=== PATIENT | female | born 1935 | race Caucasian/White ===

== ENCOUNTER 2017-03-26 12:56 | Emergency (ER) | payer MEDICARE ==
[2017-03-26] MEDS ORDERED: OXYCODONE-ACETAMINOPHEN 5-325 MG TABLET PO ONE (13:13)
--- NOTE | 2017-03-26 13:18 | ER Document Report ---
ED Fall - General Chief Complaint: Fall Stated Complaint: FALL Time Seen by Provider: 03/26/17 12:59 Mode of Arrival: Stretcher Information source: Patient TRAVEL OUTSIDE OF THE [place] IN LAST 30 DAYS: No - HPI Patient complains to provider of: Fall, left lower leg injury Occurred: Just prior to arrival Where: Home Context: Tripped Associated symptoms: None Location of injury/pain: Lower extremity Quality of pain: Achy Severity: Moderate Pain Level: 4 Notes: Patient is an 81-year-old female brought to the emergency room by EMS after trip and fall, patient reports that she had a "nerve ablation", performed by her orthopedic surgeon at this facility earlier this morning, she went home and was trying to go upstairs in her home, states she had difficulty lifting the left leg causing her to fall and hit the leg on the stair, there is ecchymosis and swelling over the anterior portion of the left lower leg, she denies pain or injury elsewhere, no head injury or loss of consciousness - Related data Allergies/Adverse Reactions: aspirin [Aspirin] Allergy (Verified 10/18/15 14:53) erythromycin base [Erythromycin Base] Allergy (Verified 10/18/15 14:53) morphine [Morphine] Allergy (Verified 10/18/15 14:53) Sulfa (Sulfonamide Antibiotics) Allergy (Verified 10/18/15 14:53) Past Medical History - General Information source: Patient - Social History Smoking Status: Unknown if Ever Smoked Family History: Reviewed & Not Pertinent - Past Medical History Cardiac Medical History: Reports: Hx Atrial Fibrillation, Hx Heart Attack - non- stemi, Hx Hypercholesterolemia, Hx Hypertension Pulmonary Medical History: Reports: Hx COPD Endocrine Medical History: Reports: Hx Diabetes Mellitus Type 2, Hx Hypothyroidism Musculoskeltal Medical History: Reports Hx Arthritis Past Surgical History: Reports: Hx Cholecystectomy, Hx Coronary Stent, Hx Hysterectomy, Hx Neurologic Surgery - Neck 2010 - Immunizations Hx Diphtheria, Pertussis, Tetanus Vaccination: Yes Hx Pneumococcal Vaccination: 07/09/10 Review of Systems - Review of Systems Constitutional: No symptoms reported EENT: No symptoms reported Cardiovascular: No symptoms reported Respiratory: No symptoms reported Gastrointestinal: No symptoms reported Genitourinary: No symptoms reported Female Genitourinary: No symptoms reported Musculoskeletal: See HPI Skin: See HPI Hematologic/Lymphatic: No symptoms reported Neurological/Psychological: No symptoms reported -: Yes All other systems reviewed and negative Physical Exam - Vital signs Vitals: Temp Pulse Resp BP Pulse Ox 97.9 F 87 20 143/61 H 95 03/26/17 13:04 03/26/17 13:04 03/26/17 13:04 03/26/17 13:04 03/26/17 13:04 - Notes Notes: - General General appearance: Appears well, Alert In distress: None - HEENT Head: Normocephalic, Atraumatic Eyes: Normal Conjunctiva: Normal Extraocular movements intact: Yes Eyelashes: Normal Pupils: PERRL - Respiratory Respiratory status: No respiratory distress - Cardiovascular Rhythm: Regular - Abdominal Inspection: Normal - Back Back: Normal - Extremities General upper extremity: Normal inspection General lower extremity: Left knee with bandages in place, no active bleeding, no erythema or swelling, to the anterior portion of the left lower leg is mild erythema with swelling and large ecchymosis, 2+ DP pulses, distal motor is intact - Neurological Neuro grossly intact: Yes Orientation: AAOx4 Kent Coma Scale Eye Opening: Spontaneous Kent Coma Scale Verbal: Oriented Kent Coma Scale Motor: Obeys Commands Valentino Coma Scale Total: 15 - Psychological Associated symptoms: Normal affect, Normal mood - Skin Skin Temperature: Warm Skin Moisture: Dry Skin Color: Normal Course - Re-evaluation Re-evalutation: 03/26/17 13:47 Patient's orthopedic surgeon, Dr. Martinez came to the emergency room to check on her, he reports that he did take a peek at her x-rays as well, her symptoms are consistent with a contusion, she is already spoken to her about follow-up in his office next week, patient will be discharged with an Kwame wrap, advised ice and elevate, return if symptoms worsen, patient acknowledges understanding and agreement with this plan - Vital Signs Vital signs: Temp Pulse Resp BP Pulse Ox 97.9 F 87 20 143/61 H 95 03/26/17 13:04 03/26/17 13:04 03/26/17 13:04 03/26/17 13:04 03/26/17 13:04 - Diagnostic Test Radiology reviewed: Image reviewed, Reports reviewed Procedures - Immobilization Left Time completed: 13:47 Pre-Proc Neuro Vasc Exam: Normal Immobilizer type: Kwame wrap Performed by: PCT Post-Proc Neuro Vasc Exam: Normal Alignment checked and good: Yes Discharge - Discharge Clinical Impression: Contusion of left lower leg Qualifiers: Encounter type: initial encounter Qualified Code(s): S80.12XA - Contusion of left lower leg, initial encounter Condition: Stable Disposition: HOME, SELF-CARE Instructions: Contusion ([facility]), Ice & Elevation ([facility]) Additional Instructions: Follow-up with your orthopedic surgeon next week, report to the emergency room immediately if symptoms worsen or any additional concerns. Ice and elevate the affected extremity, decrease weightbearing or ambulation.
--- NOTE | 2017-03-26 14:14 | RADIOLOGY REPORT (SQ) ---
EXAM DESCRIPTION: TIBIA FIBULA LEFT COMPLETED DATE/TIME: 03/26/2017 1:47 pm REASON FOR STUDY: fall COMPARISON: None. NUMBER OF VIEWS: Two views. TECHNIQUE: Two radiographic images acquired of the left tibia and fibula to include the knee and ank le in at least one projection. LIMITATIONS: None. FINDINGS: MINERALIZATION: Normal. BONES: No acute fracture or dislocation. No worrisome bone lesions. SOFT TISSUES: No obvious swelling or foreign body. OTHER: Degenerative changes are identified at the level of the knee articulation with loss of the med ial compartment IMPRESSION: NO RADIOGRAPHIC EVIDENCE OF ACUTE INJURY. TECHNICAL DOCUMENTATION: JOB ID: [id number] [employer]- All Rights Reserved
[2017-03-26 14:41] VITALS: BP 141/66
== END 2017-03-26 15:30 | disposition home or self-care (01) ==
LOC: ER 12:56
DX: S80.12XA Contusion of left lower leg, initial encounter (principal); W01.0XXA Fall on same level from slipping, tripping and stumbling without subsequent striking against object, initial encounter; Y92.009 Unspecified place in unspecified non-institutional (private) residence as the place of occurrence of the external cause; I48.91 Unspecified atrial fibrillation; E78.00 Pure hypercholesterolemia, unspecified; I10 Essential (primary) hypertension; J44.9 Chronic obstructive pulmonary disease, unspecified; E03.9 Hypothyroidism, unspecified; Z88.6 Allergy status to analgesic agent; Z88.3 Allergy status to other anti-infective agents; Z88.2 Allergy status to sulfonamides; I25.2 Old myocardial infarction; Z90.49 Acquired absence of other specified parts of digestive tract; Z90.710 Acquired absence of both cervix and uterus
CPT/HCPCS: 99284; 73590; A9270

== ENCOUNTER → 2017-03-26 | Day surgery (SDC) | payer MEDICARE ==
[~2017-03-26] MED LIST: BUPIVACAINE HCL 0.5 % INJ/PF 30 ML SDV ONE
--- NOTE | 2017-03-26 10:43 | Operative Report ---
KNEE RADIOFREQUENCY left knee under CT guidance Preoperative diagnosis: Left Osteoarthritis Knee Postoperative diagnosis: Left Osteoarthritis Knee PROCEDURE: 1. Superolateral genicular branch from the vastus lateralis 2. Superomedial genicular branch from the vastus medialis 3. Inferomedial genicular branch from the saphenous nerve 4. Medial retinacular branch from the vastus intermedius DATE OF PROCEDURE: 12 March 2017 ANESTHESIA: Local anesthesia only COMPLICATIONS: No complications noted PROCEDURE IN DETAIL: Hx/PE/meds/allergies/applicable labs reviewed. No changes and no contraindications were found. Full description of the procedure was provided including benefits as well as possible complications including transient increased pain, stomach irritation, mood alteration, transient weakness or parasthesias as well as more serious nerve injury, bleeding, infection or allergic reaction. Informed consent was obtained and documented. The patient was brought to the procedure room and placed on the exam table in a comfortable supine position. The place for needle placement was obtained by manual palpation with radiographic confirmation. The sterile field was prepared by chloroprep and sterile drapes. Local anesthesia superficial and deep was provided by local infiltration of 1% lidocaine 2 cc in the 4 different sites. A 17g 50mm and a 75 mm radiofrequency introducer needle with a 4 mm active tip was placed overlying the left knee joint and using fluoroscopic guidance the needle was advanced to a bony endpoint on the superiolateral portion of the femoral condyle of the left knee. A second needle was advanced to a bony endpoint on the superiomedial portion of the femoral condyle. A third needle was then placed over the inferiomedial portion of the tibial condyle until a bony endpoint was met. Finally a fourth needle placed midline of the femur approximately 2cm superior to the upper border of the patella. Attempted aspiration yielded no blood. Apical view on CT scan views showed all the needles at 50% depth of the femur and tibia. Motor stimulation was tested at 2.0 volts with no leg movement. Images were saved in apical views. A mixture consisting of 0.25% Marcaine was slowly injected. Then a radiofrequency ablation of each of the geniculate nerves were done at 80 degrees Celsius for 2 minutes and 30 seconds each. The needles were withdrawn. The patient tolerated the procedure well. After observation the patient was discharged with instructions and follow up. They were also provided contact information to call regarding any concerning symptoms or questions. IMPRESSION: 1. Successful geniculate knee radiofrequency ablation was performed. 2. The patient was given prescription of home medicines to be resumed. 3. RTC in 1 week.
== END ==
LOC: RAD 09:43
PROVIDERS: ATTEND Family Medicine
DX: M17.12 Unilateral primary osteoarthritis, left knee (principal)
CPT/HCPCS: 99284; 73590; 64640 ×3; A9270

== ENCOUNTER 2017-03-29 18:38 | Emergency (ER) | payer MEDICARE ==
[2017-03-29 19:40] LABS: ABSOLUTE BASOPHILS # (AUTO) 0.1 10^3/uL (0.0-0.2); ABSOLUTE EOSINOPHILS # (AUTO) 0.3 10^3/uL (0.0-0.6); ABSOLUTE LYMPHOCYTES (AUTO) 2.1 10^3/uL (0.5-4.7); ABSOLUTE MONOCYTES (AUTO) 0.7 10^3/uL (0.1-1.4); ABSOLUTE NEUT (AUTO) 10.2 10^3/uL (1.7-8.2); BASOPHILS % (AUTO) 0.6 % (0-2); EOSINOPHILS % (AUTO) 2.1 % (0-6); HEMATOCRIT 36.8 % (36.0-47.0); HEMOGLOBIN 12.3 g/dL (12.0-15.5); HGB HCT DIFFERENCE 0.1; LYMPHOCYTES % (AUTO) 16.1 % (13-45); MEAN CORPUSCULAR HGB CONC 33.4 g/dL (32.0-36.0); MEAN CORPUSCULAR VOLUME 90 fl (80-97); MONOCYTES % (AUTO) 5.2 % (3-13); RED CELL DISTRIBUTION WIDTH 12.7 % (11.5-14.0); WHITE BLOOD COUNT 13.4 10^3/uL (4.0-10.5)
[2017-03-29 19:50] LABS: ALANINE AMINOTRANSFERASE 29 U/L (9-52); ALKALINE PHOSPHATASE 147 U/L (38-126); ANION GAP 12 (5-19); ASPARTATE AMINO TRANSFERASE 48 U/L (14-36); BILIRUBIN,DIRECT 0.4 mg/dL (0.0-0.4); BILIRUBIN,TOTAL 0.7 mg/dL (0.2-1.3); BLOOD UREA NITROGEN 15 mg/dL (7-20); CALCIUM 9.6 mg/dL (8.4-10.2); CARBON DIOXIDE 31 mmol/L (22-30); CHLORIDE 100 mmol/L (98-107); CREATININE RESULT 0.69 mg/dL (0.52-1.25); GLUCOSE 124 mg/dL (75-110); POTASSIUM 4.6 mmol/L (3.6-5.0); SODIUM 142.5 mmol/L (137-145)
--- NOTE | 2017-03-29 19:56 | RADIOLOGY REPORT (SQ) ---
EXAM DESCRIPTION: CHEST SINGLE VIEW COMPLETED DATE/TIME: 03/29/2017 7:45 pm REASON FOR STUDY: sob COMPARISON: September 2015 EXAM PARAMETERS: NUMBER OF VIEWS: One view. TECHNIQUE: Single frontal radiographic view of the chest acquired. RADIATION DOSE: NA LIMITATIONS: None. FINDINGS: LUNGS AND PLEURA: No opacities, masses or pneumothorax. No pleural effusion. MEDIASTINUM AND HILAR STRUCTURES: No masses. Contour normal. HEART AND VASCULAR STRUCTURES: The configuration of the heart and mediastinal structures is unchanged . BONES: No acute findings. HARDWARE: None in the chest. OTHER: No other significant finding. IMPRESSION: No significant interval change. No acute findings. Other findings as noted above TECHNICAL DOCUMENTATION: JOB ID: [id number]
[2017-03-29] MEDS ORDERED: ACETAMINOPHEN 325 MG TABLET PO ONE (20:41)
[2017-03-29] MEDS ORDERED: NORMAL SALINE 1000 ML 500 ML IV ONE (20:57)
[2017-03-29] MEDS ORDERED: CEFTRIAXONE 1 GM/D5W RTU 1 GM/50 ML RTUPB IV ONE (20:57)
[2017-03-29 20:58] LABS: APPEARANCE,URINE CLEAR; BILIRUBIN,URINE NEGATIVE (NEGATIVE); GLUCOSE, URINE NEGATIVE (NEGATIVE); KETONES,URINE NEGATIVE (NEGATIVE); LEUKOCYTE ESTERASE,URINE NEGATIVE (NEGATIVE); NITRITE,URINE NEGATIVE (NEGATIVE); PROTEIN,URINE NEGATIVE (NEGATIVE); URINE SPECIFIC GRAVITY 1.003; UROBILINOGEN,URINE NEGATIVE mg/dL (<2.0)
--- NOTE | 2017-03-29 21:03 | ER Document Report ---
ED General - General Chief Complaint: General Weakness Stated Complaint: LEFT LEG PAIN Time Seen by Provider: 03/29/17 19:01 Notes: Patient is an 82-year-old female with past medical history of chronic pain, hypertension, diabetes, who presents with generalized fatigue, and increasing left lower extremity pain over the past 2 days. Patient did have a fall 2 days ago with a subsequent abrasion and ecchymosis of her distal left lower extremity below the level of the knee. She was seen in the emergency department at that time and subsequently discharged home. She states that since sustaining an abrasion she has had increasing warmth, erythema and pain to the affected area. The pain is described as a dull, constant, throbbing pain. Touching the area or attempts at walking worsen the pain. She has been taking oxycodone with minimal improvement of the pain. She denies any involvement of the left knee which did have injections done on it on the date of her original fall. She denies any fever. She has had decreased appetite. She has not followed up with the orthopedic surgeon or her primary care doctor regarding today's concerns. TRAVEL OUTSIDE OF THE [place] IN LAST 30 DAYS: No - Related Data Allergies/Adverse Reactions: aspirin [Aspirin] Allergy (Verified 10/18/15 14:53) erythromycin base [Erythromycin Base] Allergy (Verified 10/18/15 14:53) morphine [Morphine] Allergy (Verified 10/18/15 14:53) Sulfa (Sulfonamide Antibiotics) Allergy (Verified 10/18/15 14:53) Past Medical History - General Information source: Patient - Social History Smoking Status: Never Smoker Chew tobacco use (# tins/day): No Frequency of alcohol use: None Drug Abuse: None Lives with: Spouse/Significant other Family History: Reviewed & Not Pertinent Patient has suicidal ideation: No Patient has homicidal ideation: No - Past Medical History Cardiac Medical History: Reports: Hx Atrial Fibrillation, Hx Heart Attack - non- stemi, Hx Hypercholesterolemia, Hx Hypertension Pulmonary Medical History: Reports: Hx COPD Endocrine Medical History: Reports: Hx Diabetes Mellitus Type 2, Hx Hypothyroidism Renal/ Medical History: Denies: Hx Peritoneal Dialysis Musculoskeltal Medical History: Reports Hx Arthritis Past Surgical History: Reports: Hx Cholecystectomy, Hx Coronary Stent, Hx Hysterectomy, Hx Neurologic Surgery - Neck 2010 - Immunizations Hx Diphtheria, Pertussis, Tetanus Vaccination: Yes Hx Pneumococcal Vaccination: 07/09/10 Review of Systems - Review of Systems Notes: Constitutional: Negative for fever. Positive for generalized fatigue HENT: Negative for sore throat. Eyes: Negative for visual changes. Cardiovascular: Negative for chest pain. Respiratory: Negative for shortness of breath. Gastrointestinal: Negative for abdominal pain, vomiting or diarrhea. Genitourinary: Negative for dysuria. Musculoskeletal: Positive for left lower extremity pain Skin: Positive for cellulitis of the left lower extremity Neurological: Negative for headaches, weakness or numbness. 10 point ROS negative except as marked above and in HPI. Physical Exam - Vital signs Vitals: Temp Pulse BP Pulse Ox 98.0 F 83 147/61 H 95 03/29/17 18:44 03/29/17 18:44 03/29/17 18:44 03/29/17 18:44 Notes: PHYSICAL EXAMINATION: GENERAL: Appears somewhat uncomfortable but no acute distress. HEAD: Atraumatic, normocephalic. EYES: Pupils equal round and reactive to light, extraocular movements intact, sclera anicteric, conjunctiva are normal. ENT: nares patent, oropharynx clear without exudates. Dry mucous membranes. NECK: Normal range of motion, supple without lymphadenopathy LUNGS: Breath sounds clear to auscultation bilaterally and equal. No wheezes rales or rhonchi. HEART: Regular rate and rhythm without murmurs ABDOMEN: Soft, nontender, normoactive bowel sounds. No guarding, no rebound. No masses appreciated. EXTREMITIES: There is an ecchymosis with associated erythema over the distal left lower extremity spreading from a central area of ecchymosis along the lateral aspect of the mid tibial surface down to the dorsum of the foot and approximately 5 cm below the patella NEUROLOGICAL: No focal neurological deficits. Moves all extremities spontaneously and on command. PSYCH: Normal mood, normal affect. SKIN: Warm, Dry, normal turgor, rashes above Course - Re-evaluation Re-evalutation: 03/29/17 20:59 Patient presented with generalized weakness, dehydration fatigue with an apparent cellulitis of the left lower extremity not involving the arthroscopy site. This appears to be secondary to a recent fall with skin avulsion and abrasion to the distal left lower extremity with a subsequent hematoma that has now developed into a cellulitis. Patient's laboratories do show mild leukocytosis but lactic acid is unremarkable and patient is overall nontoxic in appearance other than demonstrating some signs of mild dehydration including dry oral mucosa and cracked lips. Patient does not meet sepsis criteria. Patient will be given a dose of IV ceftriaxone here in the emergency department as well as 500 cc of IV fluid. She will be sent on 7 days of cephalexin and encouraged to follow-up with primary care doctor within the next 24 hours. At this time will discharge with return precautions and follow-up recommendations. Verbal discharge instructions given a the bedside and opportunity for questions given. Medication warnings reviewed. Patient is in agreement with this plan and has verbalized understanding of return precautions and the need for primary care follow-up in the next 24 hours. - Vital Signs Vital signs: Temp Pulse Resp BP Pulse Ox 98.2 F 83 24 H 166/91 H 96 03/29/17 19:10 03/29/17 18:44 03/29/17 22:11 03/29/17 22:11 03/29/17 22:11 - Laboratory Result Diagrams: 03/29/17 19:05 03/29/17 19:05 Laboratory results interpreted by me: 03/29/17 03/29/17 19:05 19:05 WBC 13.4 H Absolute Neutrophils 10.2 H Carbon Dioxide 31 H Glucose 124 H AST 48 H Alkaline Phosphatase 147 H - Diagnostic Test Radiology reviewed: Image reviewed, Reports reviewed Radiology results interpreted by me: 03/29/17 21:01 Chest x-ray: No acute infiltrate or pneumothorax Discharge - Discharge Clinical Impression: Cellulitis of leg, left, Dehydration Condition: Stable Disposition: HOME, SELF-CARE Additional Instructions: The rash is likely due to infection of your skin. You need to take the antibiotics as prescribed. Do not stop even if the rash goes away until you have completed all the antibiotics. The area of redness was traced out here in the emergency department with a marking pen. You need to return to emergency department if the redness spreads outside of this area by more than 2 cm in any direction. You should also return if you develop fevers with temperature greater than 101, persistent vomiting, worsening pain, or have any other symptoms that are concerning to you. Prescriptions: Cephalexin Monohydrate [Keflex 500 mg Capsule] 500 mg PO Q6H 7 Days capsule Referrals: MAJOR WORKMAN MD [Primary Care Provider] - Follow up tomorrow
[2017-03-29 22:19] VITALS: BP 166/91
== END 2017-03-29 22:30 | disposition home or self-care (01) ==
LOC: ER 18:38
DX: L03.116 Cellulitis of left lower limb (principal); E86.0 Dehydration; R53.1 Weakness; M79.605 Pain in left leg; G89.29 Other chronic pain; I10 Essential (primary) hypertension; E11.9 Type 2 diabetes mellitus without complications; R53.83 Other fatigue
CPT/HCPCS: 99284; 96365; 36415; 85025; 80053; 81001; 84484; 83605; 71010; A9270; J7030; J0696

== ENCOUNTER 2017-08-31 01:26 | Emergency (ER) | payer MEDICARE ==
--- NOTE | 2017-08-31 01:50 | ER Document Report ---
ED General - General Stated Complaint: DIFFICULTY BREATHING Time Seen by Provider: 08/31/17 01:36 Notes: Patient is an 82-year-old female who presents with complaint of difficulty breathing. She said she first started noticing that she was becoming short of breath and coughing and wheezing around mid afternoon. It gradually got worse and then tonight she was short of breath. When paramedics arrived she was hypoxic and wheezing. They gave her breathing treatment. They said she is coughed up a lot of yellowish type sputum. She was recently discharged from [facility] after having aortic valve stenosis repair. T-max at home was 99.7. She does have a previous history of pneumonia. She does have history of asthma. She does have previous history of NV. She denies any chest pain.. She did not take her morning dose of 20 mg of Lasix. TRAVEL OUTSIDE OF THE [place] IN LAST 30 DAYS: No - Related Data Allergies/Adverse Reactions: aspirin [Aspirin] Allergy (Verified 10/18/15 14:53) erythromycin base [Erythromycin Base] Allergy (Verified 10/18/15 14:53) morphine [Morphine] Allergy (Verified 10/18/15 14:53) Sulfa (Sulfonamide Antibiotics) Allergy (Verified 10/18/15 14:53) Past Medical History - Social History Smoking Status: Never Smoker Frequency of alcohol use: None Drug Abuse: None Family History: Reviewed & Not Pertinent - Past Medical History Cardiac Medical History: Reports: Hx Atrial Fibrillation, Hx Heart Attack - non- stemi, Hx Hypercholesterolemia, Hx Hypertension Pulmonary Medical History: Reports: Hx COPD Endocrine Medical History: Reports: Hx Diabetes Mellitus Type 2, Hx Hypothyroidism Renal/ Medical History: Denies: Hx Peritoneal Dialysis Musculoskeltal Medical History: Reports Hx Arthritis Past Surgical History: Reports: Hx Cholecystectomy, Hx Coronary Stent, Hx Hysterectomy, Hx Neurologic Surgery - Neck 2010 - Immunizations Hx Diphtheria, Pertussis, Tetanus Vaccination: Yes Hx Pneumococcal Vaccination: 07/09/10 Review of Systems - Review of Systems Notes: My Normal Review Basic REVIEW OF SYSTEMS: CONSTITUTIONAL : Denies fever, chills, or sweats. Denies recent illness. EENT: Denies eye, ear, throat, or mouth pain or symptoms. Denies nasal or sinus congestion. CARDIOVASCULAR: Denies chest pain. RESPIRATORY: Difficulty breathing GASTROINTESTINAL: Denies abdominal pain. Denies nausea, vomiting, or diarrhea. MUSCULOSKELETAL: Denies neck or back pain or joint pain or swelling. SKIN: Denies rash or skin lesions. NEUROLOGICAL: Denies altered mental status or loss of consciousness. Denies weakness or paralysis or loss of use of either side. Denies problems with gait or speech. Denies sensory or motor loss. ALL OTHER SYSTEMS REVIEWED AND NEGATIVE. Physical Exam - Vital signs Vitals: Pulse Ox 100 08/31/17 01:29 - Notes Notes: General Appearance: Well nourished, alert, cooperative, mild to moderate acute distress, no obvious discomfort. Very weak on exam Vitals: reviewed, See vital signs table. Head: no swelling or tenderness to the head Eyes: PERRL, EOMI, Conjuctiva clear Mouth: No decreasd moisture Throat: No tonsillar inflammation, No airway obstruction, No lymphadenopathy Neck: Supple, no neck tenderness Lungs: No wheezing, No rales, few rhonci, No accessory muscle use, good air exchange bilaterally. Heart: Tachycardic rate, Regular rythm, No murmur, no rub Abdomen: Normal BS, soft, No rigidity, No abdominal tenderness, No guarding, no rebound, Extremities: strength 5/5 in all extremities, good pulses in all extremities, no swelling or tenderness in the extremities, 1+ edema. Skin: warm, dry, appropriate color, no rash Neuro: speech clear, oriented x 3, normal affect, responds appropriately to questions. Course - Re-evaluation Re-evalutation: 08/31/17 02:27 Patient is looking improved. Oxygen saturation is now 95%. Chest x-ray does show pneumonia which is consistent with the clinical presentation. I will order antibiotics for hospital-acquired pneumonia. 08/31/17 02:45 Patient is having occasional oxygen desaturations down to 90% on room air. This is also while at rest. I therefore placed her on 2 L nasal cannula. 08/31/17 02:59 08/31/17 03:00 08/31/17 04:05 Patient requires some supplemental oxygen and also was very weak and unable to get out of bed by herself. I do feel that she needs admission for what appears to be hospital acquired pneumonia. She does not have fever currently but did have a fever at home. She does not have a leukocytosis; however, she does have appears to be pneumonia on chest x-ray and has been bringing up yellow sputum with recent fever which is consistent clinically with pneumonia. I called and spoke with my hospitalist, Dr. Flanagan, who feels that the patient to be transferred back to [facility] since she recently had a procedure there and feels that she cannot care for the patient here. She requests I call them to see if they would be willing to take her back as a transfer. I have called and spoke with the transfer center and am waiting to hear back. 08/31/17 04:[address] Cho, hospitalist at [facility], who agrees to accept the patient for transfer. I informed the patient and her of the plan to transfer her back. Ordered all the patient's morning medications. Also ordered her Zosyn every 6 hours. She is currently doing well with supplemental oxygen. Heart rate is improved since placement of nasal cannula. She still weak but does not have any further tachypnea and is resting comfortably. Dictation of this chart was performed using voice recognition software; therefore, there may be some unintended grammatical errors. 08/31/17 04:58 - Vital Signs Vital signs: Temp Pulse Resp BP Pulse Ox 98.1 F 20 140/59 H 97 08/31/17 04:29 08/31/17 04:01 08/31/17 04:01 08/31/17 04:01 - Laboratory Result Diagrams: 08/31/17 02:30 08/31/17 02:30 Laboratory results interpreted by me: 08/31/17 08/31/17 08/31/17 02:30 02:30 02:30 Hgb 11.3 L Hct 34.7 L RDW 14.5 H Seg Neutrophils % 78.3 H Lymphocytes % 12.3 L VBG pH 7.47 H Glucose 160 H AST 65 H - EKG Interpretation by Me Additional EKG results interpreted by me: 08/31/17 01:49 EKG is reviewed and interpreted by me. EKG shows sinus tachycardia with rate of 100 bpm. Patient does have a left bundle branch block with expected ST segment changes. ME interval is within normal range. QRS duration QTc intervals are prolonged. Old EKG for comparison is from October 18, 2015. There is not a left bundle branch block on her old EKG; however, patient has had recent cardiac surgery which sometimes will cause a left bundle branch block and the patient is not having any chest pain. Discharge - Discharge Clinical Impression: Pneumonia Qualifiers: Pneumonia type: due to unspecified organism Laterality: right Lung location: upper lobe of lung Qualified Code(s): J18.1 - Lobar pneumonia, unspecified organism Condition: Stable Disposition: [facility]
--- NOTE | 2017-08-31 02:08 | RADIOLOGY REPORT (SQ) ---
EXAM DESCRIPTION: CHEST SINGLE VIEW CLINICAL HISTORY: dyspnea COMPARISON: 03/29/2017 FINDINGS: Single frontal view of the chest. Tortuosity of the thoracic aorta. Cardiomegaly. Low lung volumes. Leads overlie the chest. Hazy right upper lung opacity. No pneumothorax or pleural effusion. No displaced rib fractures identified. Upper abdominal soft tissues are unremarkable. IMPRESSION: 1. Hazy right upper lung opacity could represent developing pneumonia. 2. Cardiomegaly.
[2017-08-31] MEDS ORDERED: VANCOMYCIN HCL INJ 1000 MG VIAL IV ONE (02:28)
[2017-08-31] MEDS ORDERED: PIPERACILLIN/TAZOBACTAM 3.375 GM VIAL IV ONE (02:28)
[2017-08-31 02:51] LABS: ABSOLUTE BASOPHILS # (AUTO) 0.1 10^3/uL (0.0-0.2); ABSOLUTE EOSINOPHILS # (AUTO) 0.2 10^3/uL (0.0-0.6); ABSOLUTE LYMPHOCYTES (AUTO) 1.1 10^3/uL (0.5-4.7); ABSOLUTE MONOCYTES (AUTO) 0.5 10^3/uL (0.1-1.4); BASOPHILS % (AUTO) 0.9 % (0-2); EOSINOPHILS % (AUTO) 2.5 % (0-6); HEMATOCRIT 34.7 % (36.0-47.0); HEMOGLOBIN 11.3 g/dL (12.0-15.5); LYMPHOCYTES % (AUTO) 12.3 % (13-45); MEAN CORPUSCULAR HEMOGLOBIN 28.1 pg (27.0-33.4); MEAN CORPUSCULAR HGB CONC 32.5 g/dL (32.0-36.0); MEAN CORPUSCULAR VOLUME 87 fl (80-97); PLATELET COUNT 224 10^3/uL (150-450); RED CELL DISTRIBUTION WIDTH 14.5 % (11.5-14.0); SEGMENTED NEUTROPHILS % (AUTO) 78.3 % (42-78); TOTAL CELLS COUNTED % (AUTO) 100 %; WHITE BLOOD COUNT 8.9 10^3/uL (4.0-10.5)
[2017-08-31 02:54] LABS: VENOUS BLOOD BASE EXCESS 6.3 mmol/L; VENOUS BLOOD HCO3 30.9 mmol/L (20-32); VENOUS BLOOD PCO2 43.9 mmHg (35-63); VENOUS BLOOD PH 7.47 (7.30-7.42)
[2017-08-31 03:19] LABS: ALANINE AMINOTRANSFERASE 51 U/L (9-52); ALBUMIN 3.7 g/dL (3.5-5.0); ALKALINE PHOSPHATASE 108 U/L (38-126); ANION GAP 9 (5-19); ASPARTATE AMINO TRANSFERASE 65 U/L (14-36); BILIRUBIN,DIRECT 0.3 mg/dL (0.0-0.4); BILIRUBIN,TOTAL 0.3 mg/dL (0.2-1.3); BLOOD UREA NITROGEN 19 mg/dL (7-20); CALCIUM 9.5 mg/dL (8.4-10.2); CARBON DIOXIDE 29 mmol/L (22-30); CHLORIDE 100 mmol/L (98-107); CREATINE KINASE 72 U/L (30-135); GLUCOSE 160 mg/dL (75-110); POTASSIUM 4.1 mmol/L (3.6-5.0); SODIUM 138.2 mmol/L (137-145); TOTAL PROTEIN 7.2 g/dL (6.3-8.2)
[2017-08-31 03:37] LABS: CREATINE KINASE MB 0.4 ng/mL (<4.55)
[2017-08-31 03:47] LABS: TROPONIN I 0.07 ng/mL
[2017-08-31] MEDS ORDERED: DEXTROSE 50%-WATER 25 GM/50 ML DISP.SYRIN IV PRN ×2 (04:49)
[2017-08-31] MEDS ORDERED: DEXTROSE 40% GEL 15 GM TUBE PO PRN ×2 (04:49)
[2017-08-31] MEDS ORDERED: GLUCAGON,HUMAN RECOMB 1 MG INJ IM PRN (04:49)
[2017-08-31] MEDS ORDERED: INSULIN LISPRO 100 UNIT/ML 3 ML VIAL SUBCUT PRN (04:49)
[2017-08-31] MEDS ORDERED: INSULIN DETEMIR 100 UNIT/ML 3 ML PEN SUBCUT ONE ×2 (05:07→06:10)
[2017-08-31] MEDS ORDERED: INSULIN REG, HUMAN 100 UNIT/ML 3 ML VIAL (PYX) SUBCUT ONE (05:07)
[2017-08-31] MEDS ORDERED: PIPERACILLIN/TAZOBACTAM 4.5 GM VIAL IV SCH (06:00)
--- NOTE | 2017-08-31 07:15 | EKG REPORT ---
SEVERITY:- ABNORMAL ECG - SINUS TACHYCARDIA LEFT BUNDLE BRANCH BLOCK : Confirmed by: Thomas Hdz MD 31-Aug-2017 07:14:10
[2017-08-31 09:05] VITALS: BP 111/53
[2017-08-31] MEDS ORDERED: CALCIUM CARBONATE 250 MG/VITAMIN D3 125 UNIT TABLET PO SCH (10:00)
[2017-08-31] MEDS ORDERED: CLOPIDOGREL BISULFATE 75 MG TABLET PO SCH (10:00)
[2017-08-31] MEDS ORDERED: LEVOTHYROXINE SODIUM 0.075 MG TABLET PO SCH (10:00)
[2017-08-31] MEDS ORDERED: ALPRAZOLAM 0.5 MG TABLET PO SCH (10:00)
[2017-08-31] MEDS ORDERED: FUROSEMIDE 20 MG TABLET PO SCH (10:00)
[2017-08-31] MEDS ORDERED: ATORVASTATIN CALCIUM 20 MG TABLET PO SCH (10:00)
[2017-08-31] MEDS ORDERED: FLUTICASONE/SALMETEROL DISKUS 100-50 MCG/DOSE IH SCH (10:00)
[2017-08-31] MEDS ORDERED: AMLODIPINE BESYLATE 5 MG TABLET PO SCH (18:00)
[2017-08-31] MEDS ORDERED: LOSARTAN POTASSIUM 50 MG TABLET PO SCH (18:00)
[2017-08-31] MEDS ORDERED: METOPROLOL SUCCINATE 50 MG TAB.SR.24H PO SCH (18:00)
[2017-08-31] MEDS ORDERED: INSULIN DETEMIR 100 UNIT/ML 3 ML PEN SUBCUT SCH (18:00)
== END 2017-08-31 10:20 | disposition short-term general hospital (02) ==
LOC: ER 01:26
DX: J18.1 Lobar pneumonia, unspecified organism (principal); R06.02 Shortness of breath; R05 Cough; R09.02 Hypoxemia; R53.1 Weakness; Z79.899 Other long term (current) drug therapy; I10 Essential (primary) hypertension; J44.9 Chronic obstructive pulmonary disease, unspecified; E11.9 Type 2 diabetes mellitus without complications
CPT/HCPCS: 93005; 99285; 96365; 96367; 36415; 87040; 82553; 82962; 82550; 85025; 80053; 84484; 82803; 71045; 93010; A9270 ×5; J3370; J2543 ×2; J1815; J3490

== ENCOUNTER 2017-10-20 21:09 | Inpatient (IN) | payer MEDICARE ==
[2017-10-20 22:47] LABS: ABSOLUTE BASOPHILS # (AUTO) 0.1 10^3/uL (0.0-0.2); ABSOLUTE EOSINOPHILS # (AUTO) 0.1 10^3/uL (0.0-0.6); ABSOLUTE LYMPHOCYTES (AUTO) 1.1 10^3/uL (0.5-4.7); ABSOLUTE MONOCYTES (AUTO) 0.6 10^3/uL (0.1-1.4); ABSOLUTE NEUT (AUTO) 7.3 10^3/uL (1.7-8.2); BASOPHILS % (AUTO) 0.6 % (0-2); EOSINOPHILS % (AUTO) 0.9 % (0-6); HEMATOCRIT 30.6 % (36.0-47.0); LYMPHOCYTES % (AUTO) 12.5 % (13-45); MEAN CORPUSCULAR HGB CONC 32.7 g/dL (32.0-36.0); MEAN CORPUSCULAR VOLUME 86 fl (80-97); MONOCYTES % (AUTO) 6.4 % (3-13); PLATELET COUNT 261 10^3/uL (150-450); RED BLOOD COUNT 3.57 10^6/uL (3.72-5.28); RED CELL DISTRIBUTION WIDTH 14.3 % (11.5-14.0); SEGMENTED NEUTROPHILS % (AUTO) 79.6 % (42-78); TOTAL CELLS COUNTED % (AUTO) 100 %; WHITE BLOOD COUNT 9.1 10^3/uL (4.0-10.5)
[2017-10-20 22:57] LABS: ALANINE AMINOTRANSFERASE 23 U/L (9-52); ALBUMIN 3.6 g/dL (3.5-5.0); ALKALINE PHOSPHATASE 84 U/L (38-126); ANION GAP 11 (5-19); ASPARTATE AMINO TRANSFERASE 32 U/L (14-36); BILIRUBIN,DIRECT 0.4 mg/dL (0.0-0.4); BILIRUBIN,TOTAL 0.4 mg/dL (0.2-1.3); BLOOD UREA NITROGEN 23 mg/dL (7-20); CALCIUM 9.6 mg/dL (8.4-10.2); CARBON DIOXIDE 34 mmol/L (22-30); CHLORIDE 95 mmol/L (98-107); CREATINE KINASE 28 U/L (30-135); GLUCOSE 131 mg/dL (75-110); POTASSIUM 4.6 mmol/L (3.6-5.0); SODIUM 139.8 mmol/L (137-145); TOTAL PROTEIN 7.3 g/dL (6.3-8.2)
--- NOTE | 2017-10-21 00:09 | RADIOLOGY REPORT (SQ) ---
EXAM DESCRIPTION: CT of the head without contrast CLINICAL HISTORY: encephalopathy COMPARISON: 09/13/2015 TECHNIQUE: Axial CT of the head obtained from the skull apex to the skull base without contrast. FINDINGS: No acute intracranial hemorrhage identified. No mass, mass effect, shift of the midline, abnormal extra-axial fluid collection or CT evidence of acute ischemic change identified. The ventricular system and sulcal spaces are mildly enlarged compatible with mild cerebral atrophy. Confluent areas of hypodensity throughout the supratentorial white matter are nonspecific and may be related to chronic small vessel ischemic change. The visualized paranasal sinuses and the mastoids are clear. No skull fracture identified. Visualized orbits and globes are unremarkable. Atherosclerotic calcification of the intracranial internal carotid arteries. DLP:1043.77 mGy-cm IMPRESSION: 1. No acute intracranial abnormality by CT criteria. This exam was performed according to our departmental dose-optimization program, which includes automated exposure control, adjustment of the mA and/or kV according to patient size and/or use of iterative reconstruction technique.
[2017-10-21 00:24] LABS: CREATINE KINASE MB 0.65 ng/mL (<4.55)
[2017-10-21 00:26] LABS: TROPONIN I 0.464 ng/mL
--- NOTE | 2017-10-21 00:27 | RADIOLOGY REPORT (SQ) ---
EXAM DESCRIPTION: CT CHEST WITHOUT CONTRAST CLINICAL HISTORY: sob COMPARISON: None Available. TECHNIQUE: Axial CT images of the chest without IV contrast from the thoracic inlet through the diaphragm. Coronal and sagittal reformatted images available. DLP: 624.42 mGy-cm FINDINGS: Chest: Thyroid:No abnormalities of the visualized thyroid. Great Vessels:Great vessels have normal anatomic configuration. Thoracic Aorta: Atherosclerotic calcification of the thoracic aorta. Pulmonary arteries: The left and right pulmonary arteries are dilated. This could be seen with pulmonary arterial hypertension. Heart: Coronary artery atherosclerosis. Cardiomegaly. No definite pericardial effusion. Lymph Nodes: Enlarged right paratracheal lymph node measuring 1.0 cm in short axis dimension. Esophagus:No abnormalities of the esophagus identified Other: Calcified right axillary structure is stable. Lungs: Diffuse groundglass and interstitial opacities as well as bibasilar likely compressive atelectasis. Respiratory motion artifact and diffuse opacification diminishes sensitivity for small pulmonary nodules. Pleura: Small bilateral pleural effusions. No pneumothorax. Trachea/Airways: Senile calcifications of the airways. Bones: Degenerative change of the spine. Upper Abdomen: Limited images of the upper abdomen demonstrate no definite abnormalities of visualized portions of the liver or spleen. IMPRESSION: 1. Cardiomegaly with groundglass and interstitial opacities concerning for pulmonary edema with bibasilar compressive atelectasis. Underlying pneumonic process could produce a similar appearance. Continued radiographic follow-up recommended. 2. Small bilateral pleural effusions. 3. Mildly prominent right paratracheal lymph nodes are likely reactive or congestive. This exam was performed according to our departmental dose-optimization program, which includes automated exposure control, adjustment of the mA and/or kV according to patient size and/or use of iterative reconstruction technique.
[2017-10-21] MEDS ORDERED: FUROSEMIDE INJ/PF 40 MG/4 ML SDV IV ONE (01:13)
--- NOTE | 2017-10-21 02:18 | ER Document Report ---
ED General - General Chief Complaint: Shortness Of Breath Stated Complaint: RESPIRATORY DISTRESS Time Seen by Provider: 10/20/17 22:18 Mode of Arrival: Medic Information source: Patient Notes: This is an 82-year-old female with a history of coronary artery disease (MA in 2014), valvuloplasty (August 27 this year), asthma, multiple pneumonias who is been quite debilitated for the past several months. Patient is brought in because of increased weakness and shortness of breath. The patient's is concerned about pneumonia. Patient has been nonambulatory for the past few months and is been very weak and deconditioned. She has fallen several times. Note: The patient has been nonambulatory since September 08. Past medical history: Valvuloplasty August 27, 2017 at [facility]. Patient subsequently had recurrent pneumonia and was in [facility] rehab facility until October 15. TRAVEL OUTSIDE OF THE [place] IN LAST 30 DAYS: No - HPI Onset: Last week Onset/Duration: Gradual Quality of pain: No pain Severity: None Pain Level: Denies Associated symptoms: Leg swelling, Shortness of breath, Weakness. denies: Chest pain, Nausea, Vomiting Exacerbated by: Denies Relieved by: Denies Similar symptoms previously: Yes Recently seen / treated by doctor: Yes - Related Data Allergies/Adverse Reactions: aspirin [Aspirin] Allergy (Verified 10/18/15 14:53) erythromycin base [Erythromycin Base] Allergy (Verified 10/18/15 14:53) morphine [Morphine] Allergy (Verified 10/18/15 14:53) Sulfa (Sulfonamide Antibiotics) Allergy (Verified 10/18/15 14:53) Past Medical History - General Information source: Relative - Social History Smoking Status: Never Smoker Cigarette use (# per day): No Chew tobacco use (# tins/day): No Frequency of alcohol use: None Drug Abuse: None Lives with: Spouse/Significant other Family History: Reviewed & Not Pertinent Patient has suicidal ideation: No Patient has homicidal ideation: No - Past Medical History Cardiac Medical History: Reports: Hx Atrial Fibrillation, Hx Heart Attack - non- stemi, Hx Hypercholesterolemia, Hx Hypertension Pulmonary Medical History: Reports: Hx COPD Endocrine Medical History: Reports: Hx Diabetes Mellitus Type 2, Hx Hypothyroidism Renal/ Medical History: Denies: Hx Peritoneal Dialysis Musculoskeltal Medical History: Reports Hx Arthritis Past Surgical History: Reports: Hx Cholecystectomy, Hx Coronary Stent, Hx Hysterectomy, Hx Neurologic Surgery - Neck 2011 - Immunizations Hx Diphtheria, Pertussis, Tetanus Vaccination: Yes Hx Pneumococcal Vaccination: 07/09/10 Review of Systems - Review of Systems Constitutional: denies: Chills, Fever EENT: No symptoms reported Cardiovascular: Dyspnea Respiratory: Cough, Short of breath Gastrointestinal: No symptoms reported Genitourinary: No symptoms reported Female Genitourinary: No symptoms reported Musculoskeletal: No symptoms reported Skin: No symptoms reported Hematologic/Lymphatic: No symptoms reported Neurological/Psychological: Weakness Physical Exam - Vital signs Vitals: Temp Pulse Resp BP 97.9 F 85 20 153/69 H 10/20/17 21:09 10/20/17 21:09 10/20/17 21:09 10/20/17 21:09 Notes: Physical exam: GENERAL: 82-year-old female, arousable, oriented, she appears very weak. HEAD: Atraumatic, normocephalic. EYES: Pupils equal round and reactive to light, extraocular movements intact, sclera anicteric, conjunctiva are normal. ENT: TMs normal, nares patent, oropharynx clear without exudates. Moist mucous membranes. NECK: Normal range of motion, supple without obvious mass or JVD. LUNGS: Crackles bilaterally. HEART: Regular rate and rhythm without murmurs, rubs or gallops. ABDOMEN: Soft, normoactive bowel sounds. No tenderness to palpation. No guarding, no rebound. No masses appreciated. EXTREMITIES: 1+ edema bilaterally NEUROLOGICAL: Cranial nerves II through XII grossly intact. Normal speech, moving all extremities. PSYCH: Normal mood, normal affect. SKIN: Warm, Dry, normal turgor, no rashes or lesions noted. Course - Vital Signs Vital signs: Temp Pulse Resp BP Pulse Ox 97.9 F 85 20 153/57 H 95 10/20/17 21:09 10/20/17 21:09 10/21/17 02:01 10/21/17 02:01 10/21/17 02:01 - Laboratory Result Diagrams: 10/20/17 21:45 10/20/17 21:45 Laboratory results interpreted by me: 10/20/17 10/20/17 10/20/17 21:45 21:45 23:50 RBC 3.57 L Hgb 10.0 L Hct 30.6 L RDW 14.3 H Seg Neutrophils % 79.6 H Lymphocytes % 12.5 L Chloride 95 L Carbon Dioxide 34 H BUN 23 H Glucose 131 H Creatine Kinase 28 L NT-Pro-B Natriuret Pep 2290 H Urine Ketones Urine Ascorbic Acid 10/21/17 02:00 RBC Hgb Hct RDW Seg Neutrophils % Lymphocytes % Chloride Carbon Dioxide BUN Glucose Creatine Kinase NT-Pro-B Natriuret Pep Urine Ketones 20 H Urine Ascorbic Acid 40 H - Diagnostic Test Radiology reviewed: Image reviewed, Reports reviewed - CT of the head shows no acute process. CT of the chest consistent with pulmonary edema - EKG Interpretation by Va Rhythm: NSR - EKG shows sinus rhythm with regular rate of 81 and a left bundle branch block. Patient does have a history of a left bundle branch block Discharge - Discharge Clinical Impression: CHF Condition: Stable Disposition: ADMITTED INPATIENT Admitting Provider: Hospitalist - Dr Alexander Unit Admitted: Telemetry
[2017-10-21] MEDS ORDERED: DEXTROSE 40% GEL 15 GM TUBE PO PRN ×2 (02:22)
[2017-10-21] MEDS ORDERED: DEXTROSE 50%-WATER 25 GM/50 ML DISP.SYRIN IV PRN ×2 (02:22)
[2017-10-21] MEDS ORDERED: GLUCAGON,HUMAN RECOMB 1 MG INJ IM PRN (02:22)
--- NOTE | 2017-10-21 02:22 | PDOC H&P ---
History of Present Illness Admission Date/PCP: MAJOR WORKMAN MD History of Present Illness: FARHEEN AGUILAR is a 82 year old female patient with multiple comorbidities which includes hypothyroidism, A. fib, hypertension, hyperlipidemia, history of NM and coronary artery disease, COPD and diabetes mellitus presented with several day history of cough productive of whitish sputum and shortness of breath. Patient also found to have O2 saturation in the low 70s at home. Reportedly patient has had recurrent pneumonia for the last 3 months. She has also recurrent falls. Her lab is unremarkable except BNP of 2200. No chills, fever, chest pain, palpitation or diaphoresis. She does not have any nausea or vomiting. No abdominal pain or diarrhea. No urinary complaints. Family members request hospice placement. Past Medical History Cardiac Medical History: Reports: Atrial Fibrillation, Myocardial Infarction - non-stemi, Hyperlipidema, Hypertension Pulmonary Medical History: Reports: Chronic Obstructive Pulmonary Disease (COPD) Endocrine Medical History: Reports: Diabetes Mellitus Type 2, Hypothyroidism Musculoskeltal Medical History: Reports: Arthritis Past Surgical History Past Surgical History: Reports: Cholecystectomy, Coronary Stent, Hysterectomy Social History Smoking Status: Never Smoker Frequency of Alcohol Use: None Hx Recreational Drug Use: No Drugs: None Hx Prescription Drug Abuse: No - Advance Directive Resuscitation Status: Do Not Resuscitate Family History Family History: Reviewed & Not Pertinent, DM, Hypertension Parental Family History Reviewed: Yes Children Family History Reviewed: Yes Sibling(s) Family History Reviewed.: Yes Medication/Allergy Home Medications: Alprazolam 1 mg PO QHS 10/18/15 Alprazolam [Xanax 0.5 mg Tablet] 0.5 mg PO BID 10/18/15 Amlodipine Besylate 5 mg PO QHS 10/18/15 Amoxicillin/Potassium Clav [Augmentin 875-125 Tablet] 1 each PO BID #20 tablet 10/18/15 Atorvastatin Calcium 20 mg PO DAILY 10/18/15 Cyclobenzaprine HCl 10 mg PO QHS PRN 10/18/15 Estropipate [Ogen] 1.5 mg PO MOWEFR 10/18/15 Fluticasone/Salmeterol [Advair 100-50 Diskus 28 Dose] 2 inh IH Q12H 10/18/15 Furosemide [Lasix 20 mg Tablet] 20 mg PO QAM 10/18/15 Insulin Aspart [Novolog Flexpen] 0 unit SUBCUT .SLD SCALE 10/18/15 Insulin Detemir [Levemir Flextouch] 20 unit SQ QHS 10/18/15 Levothyroxine Sodium [Synthroid 50 Mcg Tablet] 50 mcg PO DAILY 10/18/15 Losartan Potassium [Cozaar 100 mg Tablet] 100 mg PO QHS 10/18/15 Loteprednol Etabonate [Lotemax] 1 applic OU BID 10/18/15 Meclizine HCl 25 mg PO DAILY PRN 10/18/15 Metoprolol Succinate [Toprol Xl 50 mg Tab.sr] 50 mg PO DAILY 10/18/15 [place]-3 Acid Ethyl Esters [Lovaza 1 gm Capsule] 1 gm PO DAILY 10/18/15 Ondansetron [Zofran Odt 4 mg Tablet] 4 mg PO Q6 PRN 10/18/15 Oxycodone HCl/Acetaminophen [Oxycodone-Acetaminophen 5-325] 1 each PO TID Polyethylene Glycol 3350 [Miralax Powder 17 gm/Packet] 1 packet PO DAILY PRN 05/23 Ticagrelor [Brilinta 90 mg Tablet] 1 tab PO BID 10/18/15 Tramadol HCl 50 mg PO BID 10/18/15 Zinc Sulfate [Zinc-220 Capsule] 220 mg PO BID 10/18/15 Cephalexin Monohydrate [Keflex 500 mg Capsule] 500 mg PO Q6H 7 Days capsule Allergies/Adverse Reactions: aspirin [Aspirin] Allergy (Verified 10/18/15 14:53) erythromycin base [Erythromycin Base] Allergy (Verified 10/18/15 14:53) morphine [Morphine] Allergy (Verified 10/18/15 14:53) Sulfa (Sulfonamide Antibiotics) Allergy (Verified 10/18/15 14:53) Review of Systems Constitutional: PRESENT: as per HPI Eyes: PRESENT: as per HPI Cardiovascular: PRESENT: as per HPI Respiratory: PRESENT: as per HPI Gastrointestinal: PRESENT: as per HPI Neurological: PRESENT: as per HPI Physical Exam Vital Signs: Temp Pulse Resp BP Pulse Ox 97.9 F 85 22 H 155/66 H 97 10/20/17 21:09 10/20/17 21:09 10/21/17 01:01 10/21/17 01:01 10/21/17 01:01 Intake & Output 10/19/17 10/20/17 10/21/17 06:59 06:59 06:59 Weight 81.647 kg General appearance: PRESENT: mild distress Head exam: PRESENT: atraumatic, normocephalic Respiratory exam: PRESENT: decreased breath sounds Cardiovascular exam: PRESENT: systolic murmur - Patient has ejection systolic murmur 3/6 best heard at the second interspace and radiating to her neck. Neurological exam: PRESENT: alert, awake, oriented to time Psychiatric exam: PRESENT: depressed Results Laboratory Results: 10/20/17 21:45 10/20/17 21:45 10/20/17 10/20/17 21:45 21:45 WBC 9.1 RBC 3.57 L Hgb 10.0 L Hct 30.6 L MCV 86 MCH 28.0 MCHC 32.7 RDW 14.3 H Plt Count 261 Seg Neutrophils % 79.6 H Lymphocytes % 12.5 L Monocytes % 6.4 Eosinophils % 0.9 Basophils % 0.6 Absolute Neutrophils 7.3 Absolute Lymphocytes 1.1 Absolute Monocytes 0.6 Absolute Eosinophils 0.1 Absolute Basophils 0.1 Sodium 139.8 Potassium 4.6 Chloride 95 L Carbon Dioxide 34 H Anion Gap 11 BUN 23 H Creatinine 0.59 Est GFR ( Amer) > 60 Est GFR (Non-Af Amer) > 60 Glucose 131 H Calcium 9.6 Total Bilirubin 0.4 AST 32 ALT 23 Alkaline Phosphatase 84 Total Protein 7.3 Albumin 3.6 10/20/17 10/20/17 21:45 23:50 Creatine Kinase 28 L CK-MB (CK-2) 0.65 Troponin I 0.464 NT-Pro-B Natriuret Pep 2290 H Impressions: Head CT 10/20/17 22:37 IMPRESSION: 1. No acute intracranial abnormality by CT criteria. This exam was performed according to our departmental dose-optimization program, which includes automated exposure control, adjustment of the mA and/or kV according to patient size and/or use of iterative reconstruction technique. Chest CT 10/20/17 22:38 IMPRESSION: 1. Cardiomegaly with groundglass and interstitial opacities concerning for pulmonary edema with bibasilar compressive atelectasis. Underlying pneumonic process could produce a similar appearance. Continued radiographic follow-up recommended. 2. Small bilateral pleural effusions. 3. Mildly prominent right paratracheal lymph nodes are likely reactive or congestive. This exam was performed according to our departmental dose-optimization program, which includes automated exposure control, adjustment of the mA and/or kV according to patient size and/or use of iterative reconstruction technique. Assessment & Plan - Diagnosis (1) Acute exacerbation of CHF (congestive heart failure) Qualifiers: Heart failure type: systolic Qualified Code(s): I50.23 - Acute on chronic systolic (congestive) heart failure Is this a current diagnosis for this admission?: Yes Plan: Patient has been started on Lasix 20 mg IV every 12 hours, digoxin, enalapril, carvedilol. Echo, bedrest, daily weight and strict input output. (2) Hypertension Qualifiers: Hypertension type: essential hypertension Qualified Code(s): I10 - Essential (primary) hypertension Is this a current diagnosis for this admission?: Yes (3) Hyperlipidemia Qualifiers: Hyperlipidemia type: unspecified Qualified Code(s): E78.5 - Hyperlipidemia , unspecified Is this a current diagnosis for this admission?: Yes Plan: Continue her home medication (4) A-fib Qualifiers: Atrial fibrillation type: chronic Qualified Code(s): I48.2 - Chronic atrial fibrillation Is this a current diagnosis for this admission?: Yes Plan: Rate controlled and continue her home medications. (5) COPD (chronic obstructive pulmonary disease) Qualifiers: COPD type: unspecified COPD Qualified Code(s): J44.9 - Chronic obstructive pulmonary disease, unspecified Is this a current diagnosis for this admission?: Yes Plan: As needed DuoNeb and supplemental oxygen. (6) Urinary tract infection Qualifiers: Urinary tract infection type: acute cystitis Hematuria presence: without hematuria Qualified Code(s): N30.00 - Acute cystitis without hematuria Is this a current diagnosis for this admission?: Yes Plan: Ceftriaxone. - Time Time Spent: 30 to 50 Minutes - Inpatient Certification Medical Necessity: Need Close Monitoring Due to Risk of Patient Decompensation, Need For Continuous Telemetry Monitoring, Need for IV Antibiotics
[2017-10-21] MEDS ORDERED: CEFTRIAXONE 1 GM/D5W RTU 1 GM/50 ML RTUPB IV ONE (03:00)
[2017-10-21 03:03] LABS: APPEARANCE,URINE CLEAR; BILIRUBIN,URINE NEGATIVE (NEGATIVE); COLOR,URINE YELLOW; GLUCOSE, URINE NEGATIVE (NEGATIVE); KETONES,URINE 20 mg/dL (NEGATIVE); LEUKOCYTE ESTERASE,URINE NEGATIVE (NEGATIVE); NITRITE,URINE NEGATIVE (NEGATIVE); PROTEIN,URINE NEGATIVE (NEGATIVE); URINE SPECIFIC GRAVITY 1.017; UROBILINOGEN,URINE NEGATIVE mg/dL (<2.0)
[2017-10-21] MEDS: LANSOPRAZOLE 30 MG TAB.RAP.DR PO SCH (05:16)
[2017-10-21 07:41] LABS: ABSOLUTE BASOPHILS # (AUTO) 0.1 10^3/uL (0.0-0.2); ABSOLUTE EOSINOPHILS # (AUTO) 0.1 10^3/uL (0.0-0.6); ABSOLUTE LYMPHOCYTES (AUTO) 1.5 10^3/uL (0.5-4.7); ABSOLUTE MONOCYTES (AUTO) 0.7 10^3/uL (0.1-1.4); BASOPHILS % (AUTO) 0.9 % (0-2); EOSINOPHILS % (AUTO) 1.7 % (0-6); HEMATOCRIT 27.9 % (36.0-47.0); HEMOGLOBIN 9.1 g/dL (12.0-15.5); LYMPHOCYTES % (AUTO) 20.5 % (13-45); MEAN CORPUSCULAR HEMOGLOBIN 27.9 pg (27.0-33.4); MEAN CORPUSCULAR HGB CONC 32.6 g/dL (32.0-36.0); MEAN CORPUSCULAR VOLUME 85 fl (80-97); MONOCYTES % (AUTO) 9.4 % (3-13); PLATELET COUNT 267 10^3/uL (150-450); RED BLOOD COUNT 3.27 10^6/uL (3.72-5.28); RED CELL DISTRIBUTION WIDTH 14.3 % (11.5-14.0); SEGMENTED NEUTROPHILS % (AUTO) 67.5 % (42-78); TOTAL CELLS COUNTED % (AUTO) 100 %; WHITE BLOOD COUNT 7.4 10^3/uL (4.0-10.5)
[2017-10-21 08:06] LABS: ANION GAP 12 (5-19); BLOOD UREA NITROGEN 18 mg/dL (7-20); CALCIUM 9.3 mg/dL (8.4-10.2); CARBON DIOXIDE 36 mmol/L (22-30); CHLORIDE 93 mmol/L (98-107); GLUCOSE 116 mg/dL (75-110); POTASSIUM 3.8 mmol/L (3.6-5.0); SODIUM 140.7 mmol/L (137-145)
--- NOTE | 2017-10-21 08:49 | EKG REPORT ---
SEVERITY:- ABNORMAL ECG - SINUS RHYTHM FIRST DEGREE AV BLOCK LEFT BUNDLE BRANCH BLOCK INFERIOR ST ELEVATION, POSSIBLY DUE TO LBBB : Confirmed by: Francisco J Ferrer 21-Oct-2017 08:48:39
[2017-10-21] MEDS ORDERED: POLYETHYLENE GLYCOL 3350 POWDER 17 GM/1 PACKET PO PRN (09:31)
[2017-10-21] MEDS ORDERED: (PENDING PHARMACY ID) (Oxycodone Hcl/Acetaminophen [Percocet 7.5-325 Mg Tablet] 1 TAB) PO PRN (09:31)
[2017-10-21] MEDS ORDERED: ENALAPRIL MALEATE 2.5 MG TABLET PO SCH (10:00)
[2017-10-21] MEDS ORDERED: GUAIFENESIN PO SCH (10:00)
[2017-10-21] MEDS ORDERED: [UNRECOGNIZED DRUG - OTHER] PO SCH (10:00)
[2017-10-21] MEDS ORDERED: (PENDING PHARMACY ID) (Fluticasone/Salmeterol [Advair Hfa 115-21 Mcg Inhaler] 2 PUFF) IH SCH (10:00)
[2017-10-21] MEDS ORDERED: DEXTROMETHORPHAN PO SCH (10:00)
[2017-10-21] MEDS ORDERED: CARVEDILOL 3.125 MG TABLET PO SCH (10:00)
[2017-10-21] MEDS ORDERED: LEVOTHYROXINE SODIUM 0.075 MG TABLET PO ONE (11:00)
[2017-10-21 11:03] LABS: CREATINE KINASE MB 0.75 ng/mL (<4.55)
[2017-10-21 11:09] LABS: TROPONIN I 0.414 ng/mL
[2017-10-21] MEDS: ENOXAPARIN SODIUM INJ 40 MG/0.4 ML DISP.SYRIN SUBCUT SCH (11:09)
[2017-10-21] MEDS: FUROSEMIDE INJ/PF 20 MG/2 ML SDV IV SCH ×2 (11:10→22:53)
[2017-10-21] MEDS: ZINC SULFATE 220 MG CAPSULE PO SCH ×2 (11:11→17:18)
[2017-10-21] MEDS: CLOPIDOGREL BISULFATE 75 MG TABLET PO SCH (11:12)
[2017-10-21] MEDS: ASCORBIC ACID 500 MG TABLET PO SCH (11:21)
[2017-10-21] MEDS: DIGOXIN 0.125 MG TABLET PO SCH (11:21)
[2017-10-21] MEDS: MAGNESIUM OXIDE 400 MG TABLET PO SCH ×2 (11:21→17:18)
[2017-10-21] MEDS: ALPRAZOLAM 0.5 MG TABLET PO SCH ×2 (12:02→22:52)
[2017-10-21] MEDS: ONDANSETRON 4 MG TAB.RAPDIS PO PRN ×2 (12:28→20:06)
--- NOTE | 2017-10-21 15:49 | PDOC PROGRESS REPORT ---
Subjective Progress Note for:: 10/21/17 Subjective:: The patient is an 82-year-old female with past medical history of Hypothyroidism Coronary artery disease status post [place] COPD Diabetes Hypertension Hyperlipidemia Atrial fibrillation s/p valvuloplasty x 2- most recent in August 2017 at [facility] She presented to the hospital with shortness of breath and cough and was found to be hypoxic with sats in the 70s. Cardiac BNP was 2200. CT of the chest showed diffuse groundglass and interstitial opacities. She was diagnosed with acute CHF exacerbation. Left ventricular ejection fraction unknown. Echocardiogram has been ordered. Dyspnea improved. She had some couch with whitish phlegm at home. Reason For Visit: HEART FAILURE Physical Exam Vital Signs: Temp Pulse Resp BP Pulse Ox 97.8 F 94 16 152/68 H 93 10/21/17 07:59 10/21/17 07:59 10/21/17 07:59 10/21/17 09:01 10/21/17 07:59 Intake & Output 10/20/17 10/21/17 10/22/17 06:59 06:59 06:59 Intake Total 121 Output Total 1325 Balance -1204 Weight 83.2 kg General appearance: PRESENT: obese Head exam: PRESENT: normocephalic Eye exam: PRESENT: PERRLA Ear exam: PRESENT: normal external ear exam Mouth exam: PRESENT: moist Neck exam: ABSENT: tracheal deviation Respiratory exam: PRESENT: crackles, symmetrical GI/Abdominal exam: PRESENT: normal bowel sounds, soft Rectal exam: PRESENT: deferred Gentrourinary exam: ABSENT: indwelling catheter Extremities exam: PRESENT: pedal edema Neurological exam: PRESENT: alert, awake Psychiatric exam: PRESENT: appropriate affect Skin exam: ABSENT: petechiae Results Laboratory Results: 10/21/17 07:15 10/21/17 07:15 10/21/17 10/21/17 07:15 07:15 WBC 7.4 RBC 3.27 L Hgb 9.1 L Hct 27.9 L MCV 85 MCH 27.9 MCHC 32.6 RDW 14.3 H Plt Count 267 Seg Neutrophils % 67.5 Lymphocytes % 20.5 Monocytes % 9.4 Eosinophils % 1.7 Basophils % 0.9 Absolute Neutrophils 5.0 Absolute Lymphocytes 1.5 Absolute Monocytes 0.7 Absolute Eosinophils 0.1 Absolute Basophils 0.1 Sodium 140.7 Potassium 3.8 Chloride 93 L Carbon Dioxide 36 H Anion Gap 12 BUN 18 Creatinine 0.62 Est GFR ( Amer) > 60 Est GFR (Non-Af Amer) > 60 Glucose 116 H Calcium 9.3 Magnesium 1.8 Impressions: Head CT 10/20/17 22:37 IMPRESSION: 1. No acute intracranial abnormality by CT criteria. This exam was performed according to our departmental dose-optimization program, which includes automated exposure control, adjustment of the mA and/or kV according to patient size and/or use of iterative reconstruction technique. Chest CT 10/20/17 22:38 IMPRESSION: 1. Cardiomegaly with groundglass and interstitial opacities concerning for pulmonary edema with bibasilar compressive atelectasis. Underlying pneumonic process could produce a similar appearance. Continued radiographic follow-up recommended. 2. Small bilateral pleural effusions. 3. Mildly prominent right paratracheal lymph nodes are likely reactive or congestive. This exam was performed according to our departmental dose-optimization program, which includes automated exposure control, adjustment of the mA and/or kV according to patient size and/or use of iterative reconstruction technique. Assessment & Plan - Diagnosis (1) Acute exacerbation of CHF (congestive heart failure) Qualifiers: Heart failure type: systolic Qualified Code(s): I50.23 - Acute on chronic systolic (congestive) heart failure Is this a current diagnosis for this admission?: Yes Plan: Echo has been ordered. Monitor intake and output. Lasix 20 mg IV every 12 hours. Continue digoxin and Losartan and Metoprolol. (2) COPD (chronic obstructive pulmonary disease) Qualifiers: COPD type: unspecified COPD Qualified Code(s): J44.9 - Chronic obstructive pulmonary disease, unspecified Is this a current diagnosis for this admission?: Yes Plan: Stable. Continue Advair. Nebs as needed. (3) Hyperlipidemia Qualifiers: Hyperlipidemia type: unspecified Qualified Code(s): E78.5 - Hyperlipidemia , unspecified Is this a current diagnosis for this admission?: Yes Plan: Continue statin (4) Hypertension Qualifiers: Hypertension type: essential hypertension Qualified Code(s): I10 - Essential (primary) hypertension Is this a current diagnosis for this admission?: Yes (5) Diabetes 1.5, managed as type 2 Is this a current diagnosis for this admission?: Yes Plan: Insulin sliding scale. Monitor blood glucose. Restart Levemir as indicated. (6) Hypothyroidism Is this a current diagnosis for this admission?: Yes Plan: Continue Synthroid - Time Time Spent with patient: 35 or more minutes
[2017-10-21 16:31] LABS: CREATINE KINASE MB 0.69 ng/mL (<4.55); TROPONIN I 0.394 ng/mL
[2017-10-21] MEDS: NITROGLYCERIN 2% OINTMENT 1 GM PACKET TP SCH (17:18)
--- NOTE | 2017-10-21 17:32 | RADIOLOGY REPORT (SQ) ---
EXAM DESCRIPTION: CHEST SINGLE VIEW COMPLETED DATE/TIME: 10/21/2017 5:14 pm REASON FOR STUDY: chest pain COMPARISON: 08/31/2017. EXAM PARAMETERS: NUMBER OF VIEWS: One view. TECHNIQUE: Single frontal radiographic view of the chest acquired. RADIATION DOSE: NA LIMITATIONS: None. FINDINGS: LUNGS AND PLEURA: Faint basilar densities with probable small effusions. MEDIASTINUM AND HILAR STRUCTURES: No masses. Contour normal. HEART AND VASCULAR STRUCTURES: Cardiomegaly. Normal vasculature. BONES: No acute findings. Degenerative changes in the spine and shoulders. HARDWARE: None in the chest. OTHER: No other significant finding. IMPRESSION: CARDIOMEGALY WITH PROBABLE SMALL PLEURAL EFFUSIONS. FAINT BASILAR ATELECTASIS. TECHNICAL DOCUMENTATION: JOB ID: [id number] [employer]- All Rights Reserved Reading location - IP/workstation name: [email or web address]
[2017-10-21] MEDS ORDERED: (PENDING PHARMACY ID) (Alprazolam [Alprazolam] 1 MG) PO SCH (22:00)
[2017-10-21] MEDS ORDERED: LOSARTAN POTASSIUM 50 MG TABLET PO SCH (22:00)
[2017-10-21 22:19] LABS: CREATINE KINASE MB 0.69 ng/mL (<4.55)
[2017-10-21 22:23] LABS: TROPONIN I 0.41 ng/mL
--- NOTE | 2017-10-21 22:49 | EKG REPORT ---
SEVERITY:- ABNORMAL ECG - SINUS RHYTHM FIRST DEGREE AV BLOCK LEFT BUNDLE BRANCH BLOCK : Confirmed by: Francisco J Ferrer 21-Oct-2017 19:49:26
[2017-10-21] MEDS: AMLODIPINE BESYLATE 5 MG TABLET PO SCH (22:52)
[2017-10-21] MEDS: ATORVASTATIN CALCIUM 20 MG TABLET PO SCH (22:52)
[2017-10-21] MEDS: OXYCODONE-ACETAMINOPHEN 5-325 MG TABLET PO PRN (23:09)
[2017-10-21] MEDS: OXYCODONE HCL IR 5 MG TABLET PO PRN (23:10)
[2017-10-22] MEDS: NITROGLYCERIN 2% OINTMENT 1 GM PACKET TP SCH ×2 (01:07→05:53)
[2017-10-22 05:49] LABS: ANION GAP 6 (5-19); BLOOD UREA NITROGEN 19 mg/dL (7-20); CALCIUM 8.8 mg/dL (8.4-10.2); CHLORIDE 91 mmol/L (98-107); GLUCOSE 112 mg/dL (75-110); PHOSPHORUS 4.1 mg/dL (2.5-4.5); POTASSIUM 3.6 mmol/L (3.6-5.0); SODIUM 137.4 mmol/L (137-145)
[2017-10-22 06:09] LABS: CARBON DIOXIDE 40 mmol/L (22-30)
[2017-10-22] MEDS: LANSOPRAZOLE 30 MG TAB.RAP.DR PO SCH (07:34)
[2017-10-22] MEDS: LEVOTHYROXINE SODIUM 0.075 MG TABLET PO SCH (07:34)
[2017-10-22] MEDS ORDERED: CEFTRIAXONE 1 GM/D5W RTU 1 GM/50 ML RTUPB IV SCH (08:00)
[2017-10-22] MEDS ORDERED: CEFTRIAXONE SODIUM 1,000 MG in DEXTROSE 5%-WATER 50 ML IV SCH (08:00)
[2017-10-22] MEDS: FUROSEMIDE INJ/PF 20 MG/2 ML SDV IV SCH (09:33)
[2017-10-22] MEDS: ENOXAPARIN SODIUM INJ 40 MG/0.4 ML DISP.SYRIN SUBCUT SCH (09:33)
[2017-10-22] MEDS: MAGNESIUM OXIDE 400 MG TABLET PO SCH ×2 (09:34→17:30)
[2017-10-22] MEDS: ZINC SULFATE 220 MG CAPSULE PO SCH ×2 (09:34→17:30)
[2017-10-22] MEDS: CLOPIDOGREL BISULFATE 75 MG TABLET PO SCH (09:35)
[2017-10-22] MEDS: METOPROLOL SUCCINATE 50 MG TAB.SR.24H PO SCH (09:35)
[2017-10-22] MEDS ORDERED: FUROSEMIDE INJ/PF 20 MG/2 ML SDV IV SCH (09:49)
--- NOTE | 2017-10-22 10:00 | EKG REPORT ---
SEVERITY:- ABNORMAL ECG - SINUS RHYTHM LEFT BUNDLE BRANCH BLOCK ATRIAL PREMATURE COMPLEX : Confirmed by: Francisco J Ferrer 22-Oct-2017 09:59:41
[2017-10-22] MEDS ORDERED: NITROGLYCERIN 2% OINTMENT 1 GM PACKET TP SCH (12:00)
[2017-10-22] MEDS: ASCORBIC ACID 500 MG TABLET PO SCH (13:00)
[2017-10-22] MEDS: DIGOXIN 0.125 MG TABLET PO SCH (13:00)
[2017-10-22] MEDS: ALPRAZOLAM 0.5 MG TABLET PO SCH ×2 (13:36→21:39)
--- NOTE | 2017-10-22 15:53 | PDOC PROGRESS REPORT ---
Subjective Progress Note for:: 10/22/17 Subjective:: The patient is an 82-year-old female with past medical history of Hypothyroidism Coronary artery disease status post IA Drug-eluting stent in LAD and left circumflex, bare metal stent in RCA in 2014 COPD Diabetes, not on Insulin. Hypertension Hyperlipidemia Atrial fibrillation s/p valvuloplasty x 2- most recent in August 2017 at [facility] Influenza B in August 2017 Lumbar degenerative disc disease She presented to the hospital with shortness of breath and cough and was found to be hypoxic with sats in the 70s. Cardiac BNP was 2200. CT of the chest showed diffuse groundglass and interstitial opacities. She was diagnosed with acute CHF exacerbation. I met with her daughter and granddaughter and per her the patient is a full code. They are interested in possibly considering home hospice and would like a palliative care consult. Reason For Visit: HEART FAILURE Physical Exam Vital Signs: Temp Pulse Resp BP Pulse Ox 97.7 F 60 18 109/40 L 100 10/22/17 12:28 10/22/17 12:28 10/22/17 12:28 10/22/17 12:28 10/22/17 12:28 Intake & Output 10/21/17 10/22/17 10/23/17 06:59 06:59 06:59 Intake Total 121 1139 Output Total 1325 1425 Balance -1204 -286 Weight 83.2 kg 86.6 kg General appearance: PRESENT: obese Head exam: PRESENT: normocephalic Eye exam: ABSENT: scleral icterus Ear exam: PRESENT: normal external ear exam Mouth exam: PRESENT: moist Respiratory exam: PRESENT: rhonchi, symmetrical, unlabored Cardiovascular exam: PRESENT: RRR, systolic murmur GI/Abdominal exam: PRESENT: normal bowel sounds, soft. ABSENT: tenderness Rectal exam: PRESENT: deferred Gentrourinary exam: ABSENT: indwelling catheter Extremities exam: PRESENT: pedal edema Neurological exam: PRESENT: awake Psychiatric exam: PRESENT: appropriate affect Results Laboratory Results: 10/21/17 07:15 10/22/17 05:17 10/22/17 05:17 Sodium 137.4 Potassium 3.6 Chloride 91 L Carbon Dioxide 40 H* Anion Gap 6 BUN 19 Creatinine 0.70 Est GFR ( Amer) > 60 Est GFR (Non-Af Amer) > 60 Glucose 112 H Calcium 8.8 Phosphorus 4.1 Magnesium 1.9 10/21/17 10/21/17 10/21/17 10:09 15:49 21:38 CK-MB (CK-2) 0.75 0.69 0.69 Troponin I 0.414 0.394 0.410 NT-Pro-B Natriuret Pep 10/22/17 05:17 CK-MB (CK-2) Troponin I NT-Pro-B Natriuret Pep 2090 H Impressions: Head CT 10/20/17 22:37 IMPRESSION: 1. No acute intracranial abnormality by CT criteria. This exam was performed according to our departmental dose-optimization program, which includes automated exposure control, adjustment of the mA and/or kV according to patient size and/or use of iterative reconstruction technique. Chest CT 10/20/17 22:38 IMPRESSION: 1. Cardiomegaly with groundglass and interstitial opacities concerning for pulmonary edema with bibasilar compressive atelectasis. Underlying pneumonic process could produce a similar appearance. Continued radiographic follow-up recommended. 2. Small bilateral pleural effusions. 3. Mildly prominent right paratracheal lymph nodes are likely reactive or congestive. This exam was performed according to our departmental dose-optimization program, which includes automated exposure control, adjustment of the mA and/or kV according to patient size and/or use of iterative reconstruction technique. Chest X-Ray 10/21/17 00:00 IMPRESSION: CARDIOMEGALY WITH PROBABLE SMALL PLEURAL EFFUSIONS. FAINT BASILAR ATELECTASIS. Assessment & Plan - Diagnosis (1) Acute exacerbation of CHF (congestive heart failure) Qualifiers: Heart failure type: systolic Qualified Code(s): I50.23 - Acute on chronic systolic (congestive) heart failure Is this a current diagnosis for this admission?: Yes Plan: Echo has been ordered. Monitor intake and output.Contiue IV Lasix Continue digoxin and Losartan and Metoprolol. Check Digoxin level (2) COPD (chronic obstructive pulmonary disease) Qualifiers: COPD type: unspecified COPD Qualified Code(s): J44.9 - Chronic obstructive pulmonary disease, unspecified Is this a current diagnosis for this admission?: Yes Plan: Stable. Continue Advair. Nebs as needed. (3) Hyperlipidemia Qualifiers: Hyperlipidemia type: unspecified Qualified Code(s): E78.5 - Hyperlipidemia , unspecified Is this a current diagnosis for this admission?: Yes Plan: Continue statin (4) Hypertension Qualifiers: Hypertension type: essential hypertension Qualified Code(s): I10 - Essential (primary) hypertension Is this a current diagnosis for this admission?: Yes Plan: Stable, continue outpatient meds (5) Diabetes 1.5, managed as type 2 Is this a current diagnosis for this admission?: Yes Plan: Insulin sliding scale. Monitor blood glucose. Restart Levemir as indicated. (6) Hypothyroidism Is this a current diagnosis for this admission?: Yes Plan: Continue Synthroid - Time Time Spent with patient: 35 or more minutes
[2017-10-22 16:14] LABS: ARTERIAL BLOOD BASE EXCESS 10.1 mmol/L; ARTERIAL BLOOD HCO3 36.5 mmol/L (20-26); ARTERIAL BLOOD O2 SATURATION 93.3 % (94-98); ARTERIAL BLOOD PCO2 59.8 mmHg (35-45); ARTERIAL BLOOD PO2 68.8 mmHg (80-100); ARTERIAL BLOOD TOTAL CO2 38.3 mmol/L (21-25)
[2017-10-22 16:15] LABS: ARTERIAL BLOOD FIO2 3L
[2017-10-22] MEDS ORDERED: FUROSEMIDE INJ/PF 40 MG/4 ML SDV IV SCH (18:00)
[2017-10-22] MEDS: OXYCODONE-ACETAMINOPHEN 5-325 MG TABLET PO PRN (18:44)
[2017-10-22] MEDS: OXYCODONE HCL IR 5 MG TABLET PO PRN (18:44)
[2017-10-22] MEDS: LOSARTAN POTASSIUM 50 MG TABLET PO SCH (21:39)
[2017-10-22] MEDS: ATORVASTATIN CALCIUM 20 MG TABLET PO SCH (21:40)
[2017-10-22] MEDS: AMLODIPINE BESYLATE 5 MG TABLET PO SCH (21:40)
[2017-10-23] MEDS: OXYCODONE-ACETAMINOPHEN 5-325 MG TABLET PO PRN (02:47)
[2017-10-23] MEDS: OXYCODONE HCL IR 5 MG TABLET PO PRN (02:47)
[2017-10-23] MEDS: LEVOTHYROXINE SODIUM 0.075 MG TABLET PO SCH (05:21)
[2017-10-23] MEDS: LANSOPRAZOLE 30 MG TAB.RAP.DR PO SCH (05:21)
[2017-10-23 05:23] LABS: ABSOLUTE BASOPHILS # (AUTO) 0.1 10^3/uL (0.0-0.2); ABSOLUTE EOSINOPHILS # (AUTO) 0.4 10^3/uL (0.0-0.6); ABSOLUTE LYMPHOCYTES (AUTO) 1.7 10^3/uL (0.5-4.7); ABSOLUTE MONOCYTES (AUTO) 0.7 10^3/uL (0.1-1.4); ABSOLUTE NEUT (AUTO) 4.2 10^3/uL (1.7-8.2); BASOPHILS % (AUTO) 0.8 % (0-2); EOSINOPHILS % (AUTO) 6.1 % (0-6); HEMATOCRIT 26.2 % (36.0-47.0); HEMOGLOBIN 8.6 g/dL (12.0-15.5); LYMPHOCYTES % (AUTO) 23.9 % (13-45); MEAN CORPUSCULAR HEMOGLOBIN 28.1 pg (27.0-33.4); MEAN CORPUSCULAR HGB CONC 32.8 g/dL (32.0-36.0); MEAN CORPUSCULAR VOLUME 86 fl (80-97); MONOCYTES % (AUTO) 9.6 % (3-13); PLATELET COUNT 233 10^3/uL (150-450); RED BLOOD COUNT 3.06 10^6/uL (3.72-5.28); RED CELL DISTRIBUTION WIDTH 14.3 % (11.5-14.0); SEGMENTED NEUTROPHILS % (AUTO) 59.6 % (42-78); TOTAL CELLS COUNTED % (AUTO) 100 %; WHITE BLOOD COUNT 7.1 10^3/uL (4.0-10.5)
[2017-10-23 05:49] LABS: ANION GAP 8 (5-19); BLOOD UREA NITROGEN 23 mg/dL (7-20); CALCIUM 8.6 mg/dL (8.4-10.2); CARBON DIOXIDE 38 mmol/L (22-30); CHLORIDE 91 mmol/L (98-107); DIGOXIN 0.84 ng/mL (0.8-2.0); GLUCOSE 112 mg/dL (75-110); PHOSPHORUS 3.9 mg/dL (2.5-4.5); SODIUM 137.3 mmol/L (137-145)
[2017-10-23] MEDS: ASCORBIC ACID 500 MG TABLET PO SCH (11:52)
[2017-10-23] MEDS: ENOXAPARIN SODIUM INJ 40 MG/0.4 ML DISP.SYRIN SUBCUT SCH (11:52)
[2017-10-23] MEDS: MAGNESIUM OXIDE 400 MG TABLET PO SCH ×2 (11:53→17:54)
[2017-10-23] MEDS: CLOPIDOGREL BISULFATE 75 MG TABLET PO SCH (11:53)
[2017-10-23] MEDS: METOPROLOL SUCCINATE 50 MG TAB.SR.24H PO SCH (11:53)
[2017-10-23] MEDS: DIGOXIN 0.125 MG TABLET PO SCH (11:53)
[2017-10-23] MEDS: ZINC SULFATE 220 MG CAPSULE PO SCH ×2 (11:53→17:54)
[2017-10-23] MEDS: FUROSEMIDE INJ/PF 20 MG/2 ML SDV IV SCH (11:54)
[2017-10-23] MEDS: ALPRAZOLAM 0.5 MG TABLET PO SCH ×2 (11:55→21:41)
[2017-10-23] MEDS: ONDANSETRON 4 MG TAB.RAPDIS PO PRN (17:54)
[2017-10-23] MEDS: LOTEMAX 0.5% OU SCH (17:58)
--- NOTE | 2017-10-23 20:23 | PDOC PROGRESS REPORT ---
Subjective Progress Note for:: 10/23/17 Subjective:: Patient states that she is feeling weak today. She did not speak much but she did speak a little bit. She states her breathing is fine. She also told me that she feels like her illnesses are getting worse and will probably lead to the end of her life before too long. No fever or chills. No sputum production. She is eating a little bit. Reason For Visit: HEART FAILURE Physical Exam Vital Signs: Temp Pulse Resp BP Pulse Ox 98.7 F 74 18 144/53 H 98 10/23/17 19:34 10/23/17 19:34 10/23/17 19:34 10/23/17 19:34 10/23/17 19:34 Intake & Output 10/22/17 10/23/17 10/24/17 06:59 06:59 06:59 Intake Total 1139 668 237 Output Total 1425 500 350 Balance -286 168 -113 Weight 86.6 kg 89.4 kg 89.4 kg General appearance: PRESENT: no acute distress, cooperative, morbidly obese Head exam: PRESENT: atraumatic, normocephalic Eye exam: PRESENT: EOMI Mouth exam: PRESENT: dry mucosa Respiratory exam: PRESENT: decreased breath sounds, rales, unlabored. ABSENT: rhonchi, wheezes Cardiovascular exam: PRESENT: RRR, systolic murmur Pulses: PRESENT: normal radial pulses GI/Abdominal exam: PRESENT: normal bowel sounds, soft. ABSENT: distended, firm , guarding, tenderness Gentrourinary exam: PRESENT: indwelling catheter Extremities exam: PRESENT: pedal edema Musculoskeletal exam: ABSENT: ambulatory Neurological exam: PRESENT: awake, oriented to person, oriented to place, oriented to situation, other - No focal deficits Psychiatric exam: PRESENT: flat affect. ABSENT: anxious Skin exam: PRESENT: dry, warm Results Laboratory Results: 10/23/17 05:10 10/23/17 05:10 10/23/17 10/23/17 05:10 05:10 WBC 7.1 RBC 3.06 L Hgb 8.6 L Hct 26.2 L MCV 86 MCH 28.1 MCHC 32.8 RDW 14.3 H Plt Count 233 Seg Neutrophils % 59.6 Lymphocytes % 23.9 Monocytes % 9.6 Eosinophils % 6.1 H Basophils % 0.8 Absolute Neutrophils 4.2 Absolute Lymphocytes 1.7 Absolute Monocytes 0.7 Absolute Eosinophils 0.4 Absolute Basophils 0.1 Sodium 137.3 Potassium 4.0 Chloride 91 L Carbon Dioxide 38 H Anion Gap 8 BUN 23 H Creatinine 0.75 Est GFR ( Amer) > 60 Est GFR (Non-Af Amer) > 60 Glucose 112 H Calcium 8.6 Phosphorus 3.9 Magnesium 2.0 10/21/17 10/21/17 10/21/17 10:09 15:49 21:38 CK-MB (CK-2) 0.75 0.69 0.69 Troponin I 0.414 0.394 0.410 NT-Pro-B Natriuret Pep 10/22/17 10/23/17 05:17 05:10 CK-MB (CK-2) Troponin I NT-Pro-B Natriuret Pep 2090 H 914 H Impressions: Head CT 10/20/17 22:37 IMPRESSION: 1. No acute intracranial abnormality by CT criteria. This exam was performed according to our departmental dose-optimization program, which includes automated exposure control, adjustment of the mA and/or kV according to patient size and/or use of iterative reconstruction technique. Chest CT 10/20/17 22:38 IMPRESSION: 1. Cardiomegaly with groundglass and interstitial opacities concerning for pulmonary edema with bibasilar compressive atelectasis. Underlying pneumonic process could produce a similar appearance. Continued radiographic follow-up recommended. 2. Small bilateral pleural effusions. 3. Mildly prominent right paratracheal lymph nodes are likely reactive or congestive. This exam was performed according to our departmental dose-optimization program, which includes automated exposure control, adjustment of the mA and/or kV according to patient size and/or use of iterative reconstruction technique. Chest X-Ray 10/21/17 00:00 IMPRESSION: CARDIOMEGALY WITH PROBABLE SMALL PLEURAL EFFUSIONS. FAINT BASILAR ATELECTASIS. Assessment & Plan - Diagnosis (1) Failure to thrive Is this a current diagnosis for this admission?: Yes Plan: Patient has multiple comorbidities which are advanced in nature. She has been in and out of the hospital several times in the past few months. She continues on a downward trend in terms of her baseline. She and her are both aware. He is unrealistic about her capacity for improvement. (2) Weakness Is this a current diagnosis for this admission?: Yes Plan: Patient was recently discharged from inpatient rehab because she could not participate. Her feels that they just gave up on her. She states that she is too tired to participate. (3) Acute exacerbation of CHF (congestive heart failure) Qualifiers: Heart failure type: systolic Qualified Code(s): I50.23 - Acute on chronic systolic (congestive) heart failure Is this a current diagnosis for this admission?: Yes Plan: Patient is breathing better. Continue current Lasix. Awaiting final echocardiogram evaluation. Dr. Bullard is following. (4) COPD (chronic obstructive pulmonary disease) Qualifiers: COPD type: unspecified COPD Qualified Code(s): J44.9 - Chronic obstructive pulmonary disease, unspecified Is this a current diagnosis for this admission?: Yes Plan: Table. Continue current care. (5) Diabetes 1.5, managed as type 2 Is this a current diagnosis for this admission?: Yes Plan: Stable, continue current care - Time Time Spent with patient: 35 or more minutes Medications reviewed and adjusted accordingly: Yes - Inpatient Certification Based on my medical assessment, after consideration of the patient's comorbidities, presenting symptoms, or acuity I expect that the services needed warrant INPATIENT care.: Yes I certify that my determination is in accordance with my understanding of Medicare's requirements for reasonable and necessary INPATIENT services [42 CFR 412.3e].: Yes Medical Necessity: Significant Comorbidiites Make Outpatient Treatment Too Risky , Need Close Monitoring Due to Risk of Patient Decompensation, Risk of Complication if Not Cared For in Hospital
[2017-10-23] MEDS: LOSARTAN POTASSIUM 50 MG TABLET PO SCH (21:40)
[2017-10-23] MEDS: ATORVASTATIN CALCIUM 20 MG TABLET PO SCH (21:40)
--- NOTE | 2017-10-23 21:40 | RADIOLOGY REPORT (SQ) ---
EXAM DESCRIPTION: CHEST 2 VIEWS COMPLETED DATE/TIME: 10/23/2017 9:29 pm REASON FOR STUDY: eval pna and pulm edema COMPARISON: 10/21/2017 NUMBER OF VIEWS: One view. TECHNIQUE: Single frontal radiographic view of the chest acquired. LIMITATIONS: None. FINDINGS: LUNGS AND PLEURA: Stable degree of interstitial edema with moderate bilateral pleural effu sions. MEDIASTINUM AND HILAR STRUCTURES: No masses or contour abnormality. HEART AND VASCULATURE: Cardiac enlargement. Vascular congestion. BONES: No acute findings. HARDWARE: None in the chest. OTHER: No other significant finding. IMPRESSION: MILD PULMONARY EDEMA WITH BILATERAL PLEURAL EFFUSIONS. GROSSLY STABLE FROM PRIOR STUDY. TECHNICAL DOCUMENTATION: JOB ID: [id number] [employer]- All Rights Reserved Reading location - IP/workstation name: [email or web address]
[2017-10-23] MEDS: AMLODIPINE BESYLATE 5 MG TABLET PO SCH (21:41)
--- NOTE | 2017-10-24 00:50 | CONSULTATION REPORT E ---
Consultation Report NAME: FARHEEN AGUILAR : 1935 AGE: 82Y DATE: 10/23/2017 ROOM: 321 B TO: GEORGE NARANJO M.D. FROM: BRANDON VARGAS M.D. Requesting Physician REASON FOR CONSULTATION: Patient with coronary artery disease, aortic valve stenosis, status post valvuloplasty with congestive heart failure and recurrent pneumonias and elevated troponin I. HISTORY OF PRESENT ILLNESS: Note that the patient is not a very good historian. Yesterday when I went to see her she was very somnolent and was sleeping and her blood pressure was on the lower side. I had stopped the patient's nitroglycerin and the patient has improved but still she seems to be somewhat somnolent and it is found that her CO2 has been elevated and, hence, she has been placed on a BiPAP with some improvement. As per the the patient has had a few days of cough, wheezing with sputum production which is whitish and thick in nature. The says that when she coughs up the sputum it is difficult for her to swallow. The patient's appetite has also been decreased. She has been having orthopnea, but no PND. There is no significant leg edema. She has a history of atrial fibrillation but has not had any recent episodes and remains in sinus mechanism. She has a history of coronary artery disease and a history of non-ST elevation VT in the past and history of stents and also aortic valvuloplasty (see below). There is no syncope. The patient is not ambulatory. There is no definite syncope. PAST MEDICAL HISTORY: Positive for a history of hypertension, history of diabetes mellitus, history of asthma and COPD, although the patient does not smoke. No history of sleep apnea. She has a history of chronic rotator cuff degenerative disease and has almost subluxation of the right humerus. The patient does not ambulate much since her valvuloplasty. The patient has a history of coronary artery disease, non-ST elevation VT in the past and has had cardiac catheterization and ending up with stents in the LAD, the circumflex, and the RCA. Recent cath during the valvuloplasty showed no significant stenosis of the stent sites. She has a history of aortic stenosis and in 2015 she had aortic valvuloplasty. This was done to keep the patient in better shape, to help her recover from her debilitated state, it was planned that a later date she would have a percutaneous transaortic valve and valve replacement (TAVR). The patient subsequently had some shortness of breath and had restenosis and in 08/2017 she had valvuloplasty of the aortic valve at which time catheterization showed no significant major blockages in the coronary arteries with patent stent sites. After the valvuloplasty the states that the patient went down hill and developed a pneumonia on the right side and subsequently had recurrent bouts of pneumonia and also failure to thrive and decreased appetite and severe debilitation. He also states that she has had fevers off and on. She has a history of paroxysmal atrial fibrillation, history of hyperlipidemia, history of diabetes mellitus type 2, and hypothyroidism. She also has a history of arthritis and rotator cuff problem. Note when the patient has shortness of breath which prompted the to bring her in with cough and wheezing, she also was hypoxemic with O2 saturations in the 70s. PAST SURGICAL HISTORY: Positive for cholecystectomy, cardiac catheterizations, coronary stent placement, and aortic valvuloplasty with a balloon times twice. She also has had a hysterectomy. SOCIAL HISTORY: The patient has never smoked. There is no history of EtOH abuse. ADVANCE DIRECTIVES: The patient initially was DNR but now she is a full code. Her is the surrogate healthcare decision maker. FAMILY HISTORY: Positive for diabetes mellitus, hypertension, and coronary artery disease. ALLERGIES: She is allergic to ASPIRIN, CODEINE, ERYTHROMYCIN, MOTRIN, MORPHINE, AND SULFA. MEDICATIONS: Xanax 0.5 mg p.o. at noon and 1 mg p.o. at bedtime, amlodipine 5 mg p.o. at bedtime, vitamin C 500 mg p.o. daily, atorvastatin 20 mg p.o. at bedtime, Plavix 75 mg p.o. daily. She is on hypoglycemic precautions with glutose 40% gel, 15 grams and 30 grams p.o. respectively p.r.n. hypoglycemia. She is on dextrose 50%, 12.5 grams and 25 grams IV respectively p.r.n. hypoglycemia. She is on digoxin 0.125 mg p.o. daily, Lovenox 40 mg subcutaneously daily, Advair Diskus 2 puffs inhalation q.12 hours, Lasix 20 mg IV daily, glucagon 1 mg IM p.r.n. hypoglycemia, guaifenesin/dextromethorphan 1 tablet p.o. b.i.d. She is on Accu-Cheks a.c., t.i.d., and bedtime with sliding scale regular insulin coverage. She is on ipratropium/albuterol DuoNeb nebulizer treatment q.6 hours p.r.n., *------* 30 mg p.o. q.6 a.m., levothyroxine 0.075 mg p.o. q.6 a.m., losartan 50 mg p.o. at bedtime, magnesium oxide 400 mg p.o. b.i.d., metoprolol succinate that is Toprol XL 50 mg p.o. q.a.m., Zofran 4 mg p.o. q.6 hours p.r.n., oxycodone 2.5 mg p.o. q.8 hours p.r.n., oxycodone/ acetaminophen 1 tablet p.o. q.8 hours p.r.n., polyethylene glycol that is Miralax 17 grams p.o. daily p.r.n., zinc sulfate 220 mg p.o. b.i.d. REVIEW OF SYSTEMS: CONSTITUTIONAL: states that she has fevers and chills and rigors off and on since the last 3 months. HEAD: Denies headaches or head injury. EYES: No history of amblyopia or diplopia. No history of amaurosis fugax. EARS: No history of hearing loss. No history of tinnitus. No history of recurrent ear infections. NOSE: No history of hay fever. No history of nasal polyps. No history of nosebleeds. MOUTH: No history of altered taste sensation. No ulcers in the mouth. No history of bleeding from the gums. THROAT: The patient as per the chokes on her thick sputum, but there is no odynophagia. There is no recurrent sore throats. SKIN: There is no skin rashes. There is no skin lesions. There is no petechiae or ecchymosis. There is no pruritus. There is no yellowish discoloration of the skin. There is no eczema. NECK: No neck pain. No swelling in the neck. LUNGS: A history of asthma, COPD. No history of sleep apnea. Recent symptoms suggestive of pneumonia/bronchitis with wheezing and cough productive of thick whitish sputum. No pleuritic chest pain. No history of pulmonary embolism. No history of hemoptysis. CARDIAC: Past history of congestive heart failure, history of hypertension, history of coronary artery disease, non-ST elevation VT, no recent anginal symptoms, history of stent placement in LAD, circumflex, and RCA, history of balloon valvuloplasty of the aortic valve x2, the last was in 08/2017. History of paroxysmal atrial fibrillation, at present remains in sinus rhythm. The patient is not on chronic anticoagulation therapy. No history of recent leg edema. No history of PND but there is orthopnea present. There is no syncope. GASTROINTESTINAL: History of GERD present. No history of GI bleed. No history of fatty food intolerance. Decreased appetite and poor intake. No history of abdominal pain. No history of altered bowel movements. ENDOCRINE: History of diabetes mellitus type 2, insulin requiring. History of hypothyroidism on replacement. No history of polydipsia or polyuria. No history of heat or cold intolerance. MUSCULOSKELETAL: History of arthritis. No history of collagen vascular disease. History of severe rotator cuff problem. RENAL: No history of hematuria, pyuria, or dysuria. The patient is being treated for urinary tract infection with acute cystitis. There is no hematuria. VASCULAR: There is no calf or buttock claudication but the patient does not walk much. She is almost nonambulatory, needs help with ambulation. No history of DVT. CENTRAL NERVOUS SYSTEM: No history of TIA or CVA. No history of headaches, migraines, or seizures. Patient is very somnolent, this may be due to the patient's hypoxemia. The somnolence may be due to hypoxemia and also the patient being on medications and also the patient's blood pressure being borderline. PSYCHIATRIC: The patient does appear to be depressed. There is suicidal ideation. PHYSICAL EXAMINATION: GENERAL: On examination the patient is moderately obese, appears to be chronically ill. VITAL SIGNS: She is afebrile with a temperature of 98.1 degrees Fahrenheit, pulse is 63 beats per minute, blood pressure is 133/46, respirations are 12 per minute, O2 saturations are 96% on BiPAP with an FiO2 of 30%. HEENT: Head is atraumatic, normocephalic. Eyes: Pupils are equal, round and regular, reactive to light and accommodation. Extraocular movements are normal. There is no conjunctival pallor. There is no scleral icterus. Ears: Tympanic membranes are intact. External auditory canals are clear. Nose: There is no deviation of the nasal septum, there is no inflammation of the nasal mucosa. Mouth: Mucous membranes of the mouth are moist, tongue is moist, there are no ulcers and no bleeding from the gums. Throat: There is no redness of the oropharynx, there are no exudates. SKIN: There are no skin rashes. There are no petechiae or ecchymosis. There is no skin lesion. NECK: Supple. There is no JVD. There is no lymphadenopathy. There is no goiter. Carotids are equal. There is no bruit. Trachea is central. LUNGS: Show diminished air entry, prolonged expiration with a few bibasilar fine rales of CHF which was noted yesterday but today's exam there is no rales of CHF. There are scattered rhonchi and scattered dry crackles bilaterally. HEART: S1, S2 is heard. There is no S3 gallop. There is no S4 gallop. There is a murmur of aortic stenosis present. A2 sound is muffled. There is mild carotid delay. There is a transmitted aortic stenosis murmur to the carotids. There is a murmur of mitral regurgitation present. There is no rub. ABDOMEN: Soft, obese, nontender. There is no hepatosplenomegaly. Bowel sounds are well heard. EXTREMITIES: Femorals are deep. Femorals are diminished. There are no femoral bruits. Leg pulses are diminished. There is no pedal edema. There is no cyanosis or clubbing. There is no DVT or cellulitis. There is no calf tenderness. CENTRAL NERVOUS SYSTEM: The patient is somnolent but awakens when called by name today and is a little more less somnolent than yesterday. She is oriented to person and place but not to time. There are no focal deficits. PSYCHIATRIC: The patient appears to be depressed and mostly is nonverbal and speaks very rarely when asked questions. DIAGNOSTICS: The patient's EKG on admission showed sinus rhythm, first degree AV block, and left bundle branch block pattern. The patient's head CT shows no acute intracranial abnormalities seen. The patient's CT of the chest without contrast shows cardiomegaly with ground glass and interstitial opacities concerning for pulmonary edema with bibasilar compressive atelectasis and an underlying pneumonic process could produce a similar appearance, continue radiographic follow up is recommended. Small bilateral pleural effusion, mildly prominent right tracheal lymph nodes are likely reactive or congestive. The patient's repeat EKG on 10/21; shows sinus rhythm, first degree AV block, and left bundle branch block pattern. Her EKG on 10/22; shows sinus rhythm with APCs, left bundle branch block pattern. The patient's chest x-ray shows cardiomegaly with small bilateral pleural effusion, faint basilar atelectasis. The patient's white count is 7100, hemoglobin is 8.6, hematocrit is 26.2, platelet count is 233,000. The patient's digoxin level is 0.84. The patient's sodium is 137.3, potassium 4.0, chloride is 91, CO2 is 38 has come down from 40. Her BUN is 23, creatinine 0.75, GFR is greater than 60, glucose is 112. Her calcium is 8.6, her phosphorus is 3.9, magnesium is 2.0. NT-proBNP is 914. The patient's troponin I is 0.414 and 0.394, 0.410. Note that the patient's NT-proBNP earlier was 2090. IMPRESSION: 1. Pneumonia with hypoxemia. 2. Congestive heart failure. 3. Somnolence secondary to medication with blood pressure in the 90s, due to Nitropaste which has been discontinued and now the blood pressure is better and some of patient's medication and also patient's CO2 narcosis. Note that the patient's ABGs done yesterday showed a pH of 7.40, pCO2 of 59.8, and a pO2 of 68.8, an O2 saturation of 93.3% on 3 liters nasal cannula. 4. Carbon dioxide narcosis. Would recommend BiPAP therapy. 5. Elevated troponin I secondary to the patient's pneumonia, CHF, and hypoxemia. No definite evidence of non-ST elevation VT. 6. Coronary artery disease, history of stents in the LAD, RCA, and circumflex. Note that the patient's echo shows LVH with no definite wall motion abnormality, LV ejection fraction is normal. The aortic valve velocity is difficult to get and may not be accurate but the valve seems to open and hence there is probably a moderate aortic stenosis. The peak gradient may be more than 21 mmHg which was reported after her valvuloplasty and the gradient prior to the valvuloplasty in 08/2017 was 49 mmHg. 7. Aortic stenosis moderate with history of balloon valvuloplasties x2. Patient may get a TAVR (transcatheter aortic valve replacement) in the near future if her general condition improves. 8. Mitral regurgitation, moderate by echo. 9. Hypertension. 10. Diabetes mellitus type 2, insulin dependent. 11. COPD/asthma with now pneumonia and hypoxemia. 12. Depression. RECOMMENDATION: Would recommend placing the patient on BiPAP. Would recommend continue current therapy including Plavix, beta belkis, ARB, and atorvastatin. Continue Lovenox at 40 mg subcutaneously. Continue digoxin. Would strongly recommend placing the patient on antibiotic. Continue respiratory treatments and antidiabetic treatment and thyroid replacement. Would recommend getting the patient a swallow study to make sure that the patient does not have chronic aspiration. TIME SPENT: Note 60 minutes spent on this patient, also review of the records from [facility] and the patient's records from here and also discussed with the patient, the patient's and family. Medications have been reviewed and I have stopped her Nitropaste. Note that the patient's hemoglobin has gone down, would recommend watching the patient's hemoglobin. Also getting stool for occult blood positivity. Medical decision making is of high complexity. Will discuss with *------* to see the patient will definitely be a candidate for transcatheter aortic valve replacement. Discussed with the hospitalist. Will follow with you. DICTATING PHYSICIAN: GEORGE NARANJO M.D. [id number] [facility]#: [id number] 2017 ID: [id number] JOB#: [id number] ACCT: [id number] cc:GEORGE NARANJO M.D. >
[2017-10-24] MEDS: LEVOTHYROXINE SODIUM 0.075 MG TABLET PO SCH (05:41)
[2017-10-24] MEDS: LANSOPRAZOLE 30 MG TAB.RAP.DR PO SCH (05:41)
[2017-10-24 07:38] LABS: HEMATOCRIT 27.5 % (36.0-47.0); HEMOGLOBIN 9.1 g/dL (12.0-15.5); MEAN CORPUSCULAR HEMOGLOBIN 28.1 pg (27.0-33.4); MEAN CORPUSCULAR VOLUME 85 fl (80-97); PLATELET COUNT 231 10^3/uL (150-450); RED BLOOD COUNT 3.22 10^6/uL (3.72-5.28); RED CELL DISTRIBUTION WIDTH 14.3 % (11.5-14.0); WHITE BLOOD COUNT 6.5 10^3/uL (4.0-10.5)
[2017-10-24 07:55] LABS: BLOOD UREA NITROGEN 21 mg/dL (7-20); CHLORIDE 91 mmol/L (98-107); GLUCOSE 112 mg/dL (75-110); POTASSIUM 4.1 mmol/L (3.6-5.0)
[2017-10-24 08:06] LABS: ANION GAP 9 (5-19)
[2017-10-24 08:17] LABS: CARBON DIOXIDE 39 mmol/L (22-30)
[2017-10-24] MEDS: ASCORBIC ACID 500 MG TABLET PO SCH (11:37)
[2017-10-24] MEDS: ALPRAZOLAM 0.5 MG TABLET PO SCH ×2 (11:37→21:54)
[2017-10-24] MEDS: DIGOXIN 0.125 MG TABLET PO SCH (11:37)
[2017-10-24] MEDS: CLOPIDOGREL BISULFATE 75 MG TABLET PO SCH (11:38)
[2017-10-24] MEDS: ZINC SULFATE 220 MG CAPSULE PO SCH ×2 (11:38→18:36)
[2017-10-24] MEDS: MAGNESIUM OXIDE 400 MG TABLET PO SCH ×2 (11:39→18:36)
[2017-10-24] MEDS: METOPROLOL SUCCINATE 50 MG TAB.SR.24H PO SCH (11:39)
[2017-10-24] MEDS: FUROSEMIDE INJ/PF 20 MG/2 ML SDV IV SCH (11:40)
[2017-10-24] MEDS: ENOXAPARIN SODIUM INJ 40 MG/0.4 ML DISP.SYRIN SUBCUT SCH (11:41)
[2017-10-24] MEDS: LOTEMAX 0.5% OU SCH ×2 (11:41→18:37)
--- NOTE | 2017-10-24 14:11 | PDOC PROGRESS REPORT ---
Subjective Subjective:: She feels better today. No cough or phlegm production but says there has been both recently. No fever. Breathing better in general. No new pain, no abd pain, no BM today, eating a little better. No fever. Her right hand IV is hurting and she is crying a little about that. Reason For Visit: HEART FAILURE Physical Exam Vital Signs: Temp Pulse Resp BP Pulse Ox 98.1 F 77 16 135/48 H 98 10/24/17 12:21 10/24/17 12:21 10/24/17 12:21 10/24/17 12:21 10/24/17 12:21 Intake & Output 10/23/17 10/24/17 10/25/17 06:59 06:59 06:59 Intake Total 668 365 354 Output Total 500 775 300 Balance 168 -410 54 Weight 89.4 kg 89.5 kg General appearance: PRESENT: cooperative, mild distress, morbidly obese Head exam: PRESENT: atraumatic, normocephalic Ear exam: PRESENT: normal external ear exam Mouth exam: PRESENT: moist, tongue midline Respiratory exam: PRESENT: decreased breath sounds, rales, unlabored. ABSENT: prolonged expiratory phas, rhonchi, wheezes Cardiovascular exam: PRESENT: RRR, systolic murmur GI/Abdominal exam: PRESENT: normal bowel sounds, soft. ABSENT: distended, firm , guarding, tenderness Neurological exam: PRESENT: alert, awake, oriented to person, oriented to situation Psychiatric exam: PRESENT: flat affect, other - teary Skin exam: PRESENT: dry Results Laboratory Results: 10/24/17 07:30 10/24/17 07:30 10/24/17 10/24/17 07:30 07:30 WBC 6.5 RBC 3.22 L Hgb 9.1 L Hct 27.5 L MCV 85 MCH 28.1 MCHC 33.0 RDW 14.3 H Plt Count 231 Sodium 139.0 Potassium 4.1 Chloride 91 L Carbon Dioxide 39 H Anion Gap 9 BUN 21 H Creatinine 0.74 Est GFR ( Amer) > 60 Est GFR (Non-Af Amer) > 60 Glucose 112 H Calcium 9.0 10/21/17 10/21/17 10/21/17 10:09 15:49 21:38 CK-MB (CK-2) 0.75 0.69 0.69 Troponin I 0.414 0.394 0.410 NT-Pro-B Natriuret Pep 10/22/17 10/23/17 10/24/17 05:17 05:10 07:30 CK-MB (CK-2) Troponin I 0.094 NT-Pro-B Natriuret Pep 2090 H 914 H Impressions: Head CT 10/20/17 22:37 IMPRESSION: 1. No acute intracranial abnormality by CT criteria. This exam was performed according to our departmental dose-optimization program, which includes automated exposure control, adjustment of the mA and/or kV according to patient size and/or use of iterative reconstruction technique. Chest CT 10/20/17 22:38 IMPRESSION: 1. Cardiomegaly with groundglass and interstitial opacities concerning for pulmonary edema with bibasilar compressive atelectasis. Underlying pneumonic process could produce a similar appearance. Continued radiographic follow-up recommended. 2. Small bilateral pleural effusions. 3. Mildly prominent right paratracheal lymph nodes are likely reactive or congestive. This exam was performed according to our departmental dose-optimization program, which includes automated exposure control, adjustment of the mA and/or kV according to patient size and/or use of iterative reconstruction technique. Chest X-Ray 10/23/17 00:00 IMPRESSION: MILD PULMONARY EDEMA WITH BILATERAL PLEURAL EFFUSIONS. GROSSLY STABLE FROM PRIOR STUDY. Assessment & Plan - Diagnosis (1) Failure to thrive Is this a current diagnosis for this admission?: Yes Plan: Did not discuss milton sheehan to monitor pt for safety and treat medical problems, will work towards PT as per request but pt told me today she is not quite ready. (2) Weakness Is this a current diagnosis for this admission?: Yes Plan: not quite ready for PT she tells me but she is ready to try to sit on the edge of her bed today. (3) Acute exacerbation of CHF (congestive heart failure) Qualifiers: Heart failure type: systolic Qualified Code(s): I50.23 - Acute on chronic systolic (congestive) heart failure Is this a current diagnosis for this admission?: Yes Plan: pt likely has diastolic dysfunction, will cont IV lasix and consider transition to oral tomorrow. Cont dig, losartan and metoprolol. Cont other BP agents as ordered. (4) COPD (chronic obstructive pulmonary disease) Qualifiers: COPD type: unspecified COPD Qualified Code(s): J44.9 - Chronic obstructive pulmonary disease, unspecified Is this a current diagnosis for this admission?: Yes Plan: doing ok from this perspective, cont current care (5) Diabetes 1.5, managed as type 2 Is this a current diagnosis for this admission?: Yes Plan: cont current insulin plan (6) Anxiety Is this a current diagnosis for this admission?: Yes Plan: cont xanax as ordered (7) Chronic pain Is this a current diagnosis for this admission?: Yes Plan: cont percocet as ordered (8) Pneumonia Is this a current diagnosis for this admission?: Yes Plan: possible with recent phlegm and cough, ground glass on CXR, added oral levaquin , consider 5 day course (9) NSTEMI (non-ST elevated myocardial infarction) Is this a current diagnosis for this admission?: Yes Plan: type 2 NM related to other acute medical problems, trop trended down. (10) Hypercarbia Is this a current diagnosis for this admission?: Yes Plan: pt was on bipap last night and is more awake this am, will cont to monitor for hypercarbia and symptoms, will cont to use bipap as needed (11) Recurrent pneumonia Is this a current diagnosis for this admission?: Yes Plan: based on story pt may have microaspiration, will order swallow eval - Time Time Spent with patient: 25-34 minutes - discussed case with Dr. Lobo and with RN Medications reviewed and adjusted accordingly: Yes - Inpatient Certification Based on my medical assessment, after consideration of the patient's comorbidities, presenting symptoms, or acuity I expect that the services needed warrant INPATIENT care.: Yes I certify that my determination is in accordance with my understanding of Medicare's requirements for reasonable and necessary INPATIENT services [42 CFR 412.3e].: Yes Medical Necessity: Significant Comorbidiites Make Outpatient Treatment Too Risky , Need Close Monitoring Due to Risk of Patient Decompensation, Risk of Complication if Not Cared For in Hospital
[2017-10-24] MEDS: LEVOFLOXACIN 750 MG TABLET PO SCH (15:38)
[2017-10-24] MEDS: LOSARTAN POTASSIUM 50 MG TABLET PO SCH (21:54)
[2017-10-24] MEDS: ATORVASTATIN CALCIUM 20 MG TABLET PO SCH (21:54)
[2017-10-24] MEDS: AMLODIPINE BESYLATE 5 MG TABLET PO SCH (21:54)
--- NOTE | 2017-10-24 23:20 | PROGRESS NOTE E ---
Progress Note NAME: FARHEEN AGUILAR : 1935 AGE: 82Y DATE: 10/24/2017 ROOM: 321 SUBJECTIVE: Note that the patient is with her . She is more awake and alert today. She had been wearing CPAP/BiPAP lat night. This has helped her to get out of her somnolence. The patient denies any chest pain or discomfort. There is no PND. She does have orthopnea. There is no leg edema. There is no anginal symptoms. There is no recurrence of her atrial fibrillation. There are no TIA or CVA symptoms. OBJECTIVE: GENERAL: On examination the patient is moderately obese but well-groomed, at present in no acute distress. She does not appear to be depressed today. In spite of that, she does appear to be chronically ill. VITAL SIGNS: She is afebrile with a temperature of 98.1 degrees Fahrenheit, pulse is 77 beats per minute, blood pressure 133/48, respirations are 16 per minute, O2 saturations are 98% on 3 L nasal cannula. HEENT: Head is atraumatic, normocephalic. Eyes: Pupils are equal, round and regular, reactive to light and accommodation. Extraocular movements are normal. There is no conjunctival pallor. There is no scleral icterus. ENT is negative. NECK: Supple. There is no JVD. Carotids are equal. There is no bruit. There is transmitted aortic *------* in both carotids. There is no significant carotid delay. LUNGS: Show diminished air entry prolonged, expiration with a few scattered rhonchi and a few scattered dry crackles. No are no rales of CHF today. There is no wall tenderness. HEART: S1, S2 is heard. There is no S3 gallop. There is no S4 gallop. S1 is of normal intensity. There is murmur of aortic stenosis present. A2 sound is slightly muffled. There is mild carotid delay. There is transmitted aortic stenosis murmur to both carotids. There is a murmur of mitral regurgitation present. There is no rub. ABDOMEN: Soft, obese, nontender. There is no hepatosplenomegaly. Bowel sounds are well heard. EXTREMITIES: Femorals are deep. Femorals are diminished. There are no femoral bruits. Leg pulses are diminished. There is no pedal edema. There is no cyanosis or clubbing. There is no DVT or cellulitis. There is no calf tenderness. CENTRAL NERVOUS SYSTEM: The patient is conscious, awake. She is not somnolent anymore. There are no focal deficits. PSYCHIATRIC: The patient appears to be less depressed today and is verbal and speaks appropriately when asked. She does not appear to be agitated. INTAKE/OUTPUT: The patient's 24-hour intake is 365 mL, output is 770 mL. I am not sure it this is accurate. LABORATORY: The patient's sodium is 139, potassium 4.1, chloride is 91, CO2 is 39. The patient's BUN is 21, creatinine 0.74. GFR is greater than 60. Glucose is 112. Her calcium is 90. Her troponin I has trended down to 0.094. The patient's white count is 6,*------*; hemoglobin is 9.1, hematocrit is 27.5 and the platelet count is 231,000. IMPRESSION: 1. PNEUMONIA WITH HYPOXEMIA, SEEMS TO BE GETTING BETTER. Would strongly recommend starting the patient on some antibiotics. 2. CONGESTIVE HEART FAILURE. AT PRESENT SEEMS TO BE COMPLICATED. 3. SOMNOLENCE SECONDARY YTO MEDICATION. No blood pressure which is resolved after the nitroglycerin had been taken off and also secondary to CO2 retention. These are being improved with the patient's current treatment and also BiPAP. 4. CARBON DIOXIDE NARCOSIS. The patient on BiPAP therapy is much improved. 5. ELEVATED TROPONIN I SECONDARY TO PATIENT'S PNEUMONIA, CHF AND HYPOXEMIA. NO DEFINITE EVIDENCE OF NON-ST ELEVATION AL. 6. CORONARY ARTERY DISEASE, HISTORY OF STENTS IN THE LAD, RCA AND CIRCUMFLEX. NO ANGINAL SYMPTOMS. 7. AORTIC STENOSIS MOST LIKELY MODERATE BY VISUAL ESTIMATE. The aortic valve check is very difficult to be certain that it is accurate. Note, the patient has history of aortic valve balloon valvuloplasty x2. She may be a candidate if she is not better physical condition for a TAVR (transcatheter aortic valve replacement). 8. MITRAL REGURGIATION, MODERATE BY ECHO. 9. HYPERTENSION. Blood pressure well controlled. 10. DIABETES MELLITUS, TYPE 2 INSULIN DEPENDENT. 11. COPD/ASTHMA WITH NONPNEUMONIA AND HYPOXEMIA. Has resolved with current treatment. 12. DEPRESSION. 13. ANEMIA. Would recommend workup of anemia. Will get serum iron, B12 and folate levels. 14. POSSIBLE ASPIRATION CHRONICALLY. Hence, would strongly recommend that the patient have speech therapy and a swallow study. This has been discussed with the hospitalist. Discussed with patient and patient's . 15. PAROXYSMAL ATRIAL FIBRILLATION BY HISTORY. TIME SPENT: Note, 40 minutes spent on this patient with more than 50% of the time spent on direct patient care and medications have been reviewed. New labs have been ordered to work up anemia. Her medical decision making is still moderate to high complexity. In view of the multiple medical problems that the patient has including valvular disease, coronary artery disease, history of atrial fibrillation which is probably paroxysmal. Will follow with you. Thanking you. DICTATING PHYSICIAN: GEORGE NARANJO M.D. [id number] [id number] [facility]AY#: [id number] ID: [id number] JOB#: [id number] ACCT: [id number] cc: >
[2017-10-24] MEDS: OXYCODONE-ACETAMINOPHEN 5-325 MG TABLET PO PRN (23:57)
[2017-10-25] MEDS: LANSOPRAZOLE 30 MG TAB.RAP.DR PO SCH (05:05)
[2017-10-25] MEDS: LEVOTHYROXINE SODIUM 0.075 MG TABLET PO SCH (05:05)
[2017-10-25 05:19] LABS: ABSOLUTE RETICS # 0.071 10^6/uL (0.028-0.122); RETICULOCYTE COUNT (AUTO) 2.33 % (0.66-2.85)
[2017-10-25 05:41] LABS: ANION GAP 10 (5-19); BLOOD UREA NITROGEN 21 mg/dL (7-20); CALCIUM 8.9 mg/dL (8.4-10.2); CARBON DIOXIDE 38 mmol/L (22-30); CHLORIDE 91 mmol/L (98-107); GLUCOSE 117 mg/dL (75-110); IRON(TIBC) 26.6 ug/dL (37-170); POTASSIUM 4.3 mmol/L (3.6-5.0); SODIUM 138.9 mmol/L (137-145)
[2017-10-25] MEDS: ASCORBIC ACID 500 MG TABLET PO SCH (10:52)
[2017-10-25] MEDS: METOPROLOL SUCCINATE 50 MG TAB.SR.24H PO SCH (10:54)
[2017-10-25] MEDS: ZINC SULFATE 220 MG CAPSULE PO SCH ×2 (10:54→17:29)
[2017-10-25] MEDS: CLOPIDOGREL BISULFATE 75 MG TABLET PO SCH (10:54)
[2017-10-25] MEDS: MAGNESIUM OXIDE 400 MG TABLET PO SCH ×2 (10:54→17:30)
[2017-10-25] MEDS: FUROSEMIDE INJ/PF 20 MG/2 ML SDV IV SCH (10:55)
[2017-10-25] MEDS: DIGOXIN 0.125 MG TABLET PO SCH (10:55)
[2017-10-25] MEDS: ENOXAPARIN SODIUM INJ 40 MG/0.4 ML DISP.SYRIN SUBCUT SCH (10:55)
[2017-10-25] MEDS: LOTEMAX 0.5% OU SCH ×2 (10:55→17:30)
[2017-10-25] MEDS: ALPRAZOLAM 0.5 MG TABLET PO SCH ×2 (13:13→21:33)
[2017-10-25] MEDS: LEVOFLOXACIN 750 MG TABLET PO SCH (13:13)
--- NOTE | 2017-10-25 16:49 | PDOC PROGRESS REPORT ---
Subjective Progress Note for:: 10/25/17 Subjective:: Patient thinks that she is feeling a bit better today. She is not really speaking very much and mostly answers in 1 or 2 word sentences. She leaves most of the talking to her . He thinks that she is improved today. He would like to set her up and have her eat some lunch. He thinks her breathing is improved. He would like to see her go into inpatient rehab if at all possible. No fevers or chills. No abdominal pain nausea or vomiting. Reason For Visit: HEART FAILURE Physical Exam Vital Signs: Temp Pulse Resp BP Pulse Ox 97.9 F 64 16 130/41 H 100 10/25/17 12:13 10/25/17 12:13 10/25/17 12:13 10/25/17 12:13 10/25/17 12:13 Intake & Output 10/24/17 10/25/17 10/26/17 06:59 06:59 06:59 Intake Total 365 1112 Output Total 775 1300 Balance -410 -188 Weight 89.5 kg 92 kg General appearance: PRESENT: no acute distress, cooperative, morbidly obese Head exam: PRESENT: atraumatic, normocephalic Eye exam: ABSENT: conjunctival injection, scleral icterus Ear exam: PRESENT: normal external ear exam Mouth exam: PRESENT: moist Respiratory exam: PRESENT: decreased breath sounds, unlabored. ABSENT: rales, rhonchi, wheezes Cardiovascular exam: PRESENT: RRR, systolic murmur Pulses: PRESENT: normal radial pulses GI/Abdominal exam: PRESENT: normal bowel sounds, soft. ABSENT: distended, firm , guarding, tenderness Gentrourinary exam: PRESENT: indwelling catheter Extremities exam: ABSENT: pedal edema Musculoskeletal exam: ABSENT: ambulatory Neurological exam: PRESENT: awake, oriented to person, oriented to place, oriented to situation Skin exam: PRESENT: dry, intact, warm, other - Erythema over both buttocks. Nonblanching. Results Laboratory Results: 10/24/17 07:30 10/25/17 05:01 10/25/17 10/25/17 10/25/17 05:01 05:01 09:25 Retic Count (auto) 2.33 Absolute Retic 0.071 Sodium 138.9 Potassium 4.3 Chloride 91 L Carbon Dioxide 38 H Anion Gap 10 BUN 21 H Creatinine 0.78 Est GFR ( Amer) > 60 Est GFR (Non-Af Amer) > 60 Glucose 117 H Calcium 8.9 Iron 26.6 L TIBC 381 % Saturation 7 Ferritin 35.60 Vitamin B12 692.0 Folate 11.20 Stool Occult Blood NEGATIVE 10/21/17 10/21/17 10/21/17 10:09 15:49 21:38 CK-MB (CK-2) 0.75 0.69 0.69 Troponin I 0.414 0.394 0.410 NT-Pro-B Natriuret Pep 10/22/17 10/23/17 10/24/17 05:17 05:10 07:30 CK-MB (CK-2) Troponin I 0.094 NT-Pro-B Natriuret Pep 2090 H 914 H Impressions: Head CT 10/20/17 22:37 IMPRESSION: 1. No acute intracranial abnormality by CT criteria. This exam was performed according to our departmental dose-optimization program, which includes automated exposure control, adjustment of the mA and/or kV according to patient size and/or use of iterative reconstruction technique. Chest CT 10/20/17 22:38 IMPRESSION: 1. Cardiomegaly with groundglass and interstitial opacities concerning for pulmonary edema with bibasilar compressive atelectasis. Underlying pneumonic process could produce a similar appearance. Continued radiographic follow-up recommended. 2. Small bilateral pleural effusions. 3. Mildly prominent right paratracheal lymph nodes are likely reactive or congestive. This exam was performed according to our departmental dose-optimization program, which includes automated exposure control, adjustment of the mA and/or kV according to patient size and/or use of iterative reconstruction technique. Chest X-Ray 10/23/17 00:00 IMPRESSION: MILD PULMONARY EDEMA WITH BILATERAL PLEURAL EFFUSIONS. GROSSLY STABLE FROM PRIOR STUDY. Assessment & Plan - Diagnosis (1) Failure to thrive Is this a current diagnosis for this admission?: Yes Plan: Patient has had a decline over the past few months. Multiple hospitalizations. Discharge from rehab secondary to inability to participate. I had a long discussion with her about her CODE STATUS and the possibility of hospice evaluation. She was not able to make a decision about either. (2) Weakness Is this a current diagnosis for this admission?: Yes Plan: Multifactorial in this 82-year-old woman with heart failure, COPD, recurrent pneumonia with probable recurrent aspiration, obesity, diabetes. Will order physical therapy. (3) Acute exacerbation of CHF (congestive heart failure) Qualifiers: Heart failure type: systolic Qualified Code(s): I50.23 - Acute on chronic systolic (congestive) heart failure Is this a current diagnosis for this admission?: Yes Plan: We will stop IV Lasix as she is significantly improved from a pulmonary perspective. Will start oral Lasix 20 mg daily. Tolerating Lasix 20 mg every other day and that may be the most appropriate dosing for her for discharge. Patient has normal ejection fraction, I discussed her echo with Dr. Bullard who agrees that she has diastolic dysfunction. (4) COPD (chronic obstructive pulmonary disease) Qualifiers: COPD type: unspecified COPD Qualified Code(s): J44.9 - Chronic obstructive pulmonary disease, unspecified Is this a current diagnosis for this admission?: Yes Plan: Stable, continue current medications (5) Diabetes 1.5, managed as type 2 Is this a current diagnosis for this admission?: Yes Plan: Stable, continue current medications. (6) Stage I decubitus ulcer and pressure area Qualifiers: Pressure ulcer location: buttock Laterality: unspecified laterality Qualified Code(s): L89.301 - Pressure ulcer of unspecified buttock, stage 1 Is this a current diagnosis for this admission?: Yes Plan: Patient has nonblanching erythema over bilateral buttocks. She is bound at this time secondary to weakness and debility. Will institute breakdown precautions. (7) Anxiety Is this a current diagnosis for this admission?: Yes Plan: Appears stable, continue current medications. (8) Chronic pain Is this a current diagnosis for this admission?: Yes Plan: Stable, continue her current pain med plan (9) Pneumonia Is this a current diagnosis for this admission?: Yes Plan: Patient is on Levaquin for a possible pneumonia. She has improved and I would recommend completing a "full course. She had significant phlegm production which is now improved. (10) NSTEMI (non-ST elevated myocardial infarction) Is this a current diagnosis for this admission?: Yes Plan: Probably a type II MO. Troponin has trended down. Dr. Bullard is following. (11) Hypercarbia Is this a current diagnosis for this admission?: Yes Plan: Proved with BiPAP. Dr. Barajas has been consulted. (12) Recurrent pneumonia Is this a current diagnosis for this admission?: Yes Plan: I think this patient may have a chronic aspiration. I have ordered speech therapy for an evaluation and possible swallow study.
[2017-10-25] MEDS: INSULIN LISPRO 100 UNIT/ML 3 ML VIAL SUBCUT PRN (17:30)
[2017-10-25] MEDS: OXYCODONE-ACETAMINOPHEN 5-325 MG TABLET PO PRN (19:12)
[2017-10-25] MEDS: OXYCODONE HCL IR 5 MG TABLET PO PRN (19:13)
[2017-10-25] MEDS: ATORVASTATIN CALCIUM 20 MG TABLET PO SCH (21:34)
[2017-10-25] MEDS: LOSARTAN POTASSIUM 50 MG TABLET PO SCH (21:34)
[2017-10-25] MEDS: AMLODIPINE BESYLATE 5 MG TABLET PO SCH (21:34)
--- NOTE | 2017-10-25 21:55 | PROGRESS NOTE E ---
Progress Note NAME: FARHEEN AGUILAR : 1935 AGE: 82Y DATE: 10/25/2017 ROOM: 321 SUBJECTIVE: The patient is much awake and alert and, in fact, is cheerful and smiles. Her appetite is good. She denies any chest pain or discomfort. There is no shortness of breath. There is some mild ankle edema. The patient does have chronic orthopnea. The patient has no recurrence of atrial fibrillation. There is no TIA or CVA symptoms. The patient denies any black stools or abdominal pain. OBJECTIVE: GENERAL: On examination the patient is moderately obese but well-groomed. She appears to be much awake and alert after the use of BiPAP at night. She is in no acute distress, although she appears to be chronically ill. VITAL SIGNS: She is afebrile with a temperature of 97.9 degrees Fahrenheit, pulse is 64 beats per minute, blood pressure 130/41, respirations are 16 per minute, O2 saturations are 100% on 3 liters nasal cannula. HEENT: Head is atraumatic, normocephalic. Eyes: Pupils are equal, round and regular, reactive to light and accommodation. Extraocular movements are normal. There is no conjunctival pallor. There is no scleral icterus. ENT is negative. NECK: Supple. There is no JVD. Carotids are equal. There is no bruit. There is transmitted aortic murmur over both carotids. There is mild carotid delay, but no significant carotid delay. LUNGS: Show diminished air entry, prolonged expiration without any rhonchi, rales, or wheezing. There is no chest wall tenderness. HEART: S1, S2 is heard. There is no S3 gallop. There is no S4 gallop. S1 is of normal intensity. There is murmur of aortic stenosis present. A2 is slightly muffled. There is mild carotid delay. There is transmitted aortic stenosis murmur to both carotids. There is a murmur of mitral regurgitation present. There is no rub. ABDOMEN: Soft, obese, nontender. There is no hepatosplenomegaly. Bowel sounds are well heard. EXTREMITIES: Femorals are deep. Femorals are diminished. There are no femoral bruits. Leg pulses are diminished. There is no pedal edema, but there is mild ankle edema bilaterally, which is very minimal. There is no cyanosis or clubbing. There is no DVT or cellulitis. CENTRAL NERVOUS SYSTEM: The patient is conscious, awake, alert, oriented x3 with no focal deficits. PSYCHIATRIC: The patient does not appear to be anxious or depressed today. Her affect appears to be normal. Judgment and insight seem to be intact. INTAKE/OUTPUT: The patient's 24 hour intake is 1112 mL, output is 1300 mL. DIAGNOSTICS: The patient's sodium is 138.9, potassium 4.3, chloride 91, CO2 is 38. The patient's BUN is 21, creatinine 0.78, GFR is greater than 60. Glucose is 117. Her calcium is 8.9. The patient's iron is 26.6, TIBC is 381, percent saturation is 7, ferritin is 35.60, reticulocyte count is 2.33, absolute reticulocyte count is 0.71. IMPRESSION: 1. PNEUMONIA WITH HYPOXEMIA. Seems to be improving. 2. CONGESTIVE HEART FAILURE. At present seems to be compensated. 3. SOMNOLENCE SECONDARY TO MEDICATION AND CO2 RETENTION. These have improved with the patient using BiPAP at night. 4. CARBON DIOXIDE NARCOSIS. Seems to have improved on BiPAP therapy. 5. ELEVATED TROPONIN I SECONDARY TO PATIENT'S PNEUMONIA, CHF, AND HYPOXEMIA. NO DEFINITE EVIDENCE OF NON-ST ELEVATION [place]. Troponin I has trended down. 6. CORONARY ARTERY DISEASE, HISTORY OF STENTS IN THE LAD, RCA, AND CIRCUMFLEX WITH NO ANGINAL SYMPTOMS. 7. AORTIC STENOSIS MOST LIKELY MODERATE. 8. MITRAL REGURGITATION, MODERATE BY ECHO. 9. HYPERTENSION. Blood pressure well controlled. 10. DIABETES MELLITUS TYPE 2 INSULIN DEPENDENT. 11. COPD/ASTHMA WITH PNEUMONIA AND HYPOXEMIA. This is improved much. We will repeat a chest x-ray in the morning. 12. DEPRESSION. 13. ANEMIA. Note that the B12 level is 692 which is normal. Folate level is 11.02 which is normal and the patient does have low iron of 26.6. Hence we will start the patient on ferrous sulfate. This has been discussed with the patient and the patient's . 14. POSSIBLE ASPIRATION CHRONICALLY. Probably this is not the case since the patient is more awake now. Aspiration could be secondary to somnolence due to her CO2 narcosis. 15. PAROXYSMAL ATRIAL FIBRILLATION BY HISTORY. At present in this admission the patient has not gone in atrial fibrillation, she has remained in sinus rhythm. TIME SPENT: Note medications have been reviewed. A chest x-ray ordered by me for review for tomorrow. Discussed with the patient and the patient's . Note 35 minutes spent on the patient with more than 50% of the time spent on direct patient care. I have also reviewed the medication, I adjusted her medication and added ferrous sulfate. Medical decision making is of moderate complexity. Discussed with the attending physician on the case, will follow with you. DICTATING PHYSICIAN: GEORGE NARANJO M.D. [id number] [facility]#: [id number] ID: [id number] JOB#: [id number] ACCT: [id number] cc: >
[2017-10-26] MEDS: LANSOPRAZOLE 30 MG TAB.RAP.DR PO SCH (05:50)
[2017-10-26] MEDS: LEVOTHYROXINE SODIUM 0.075 MG TABLET PO SCH (05:50)
--- NOTE | 2017-10-26 09:40 | ST Inp Modified Barium Swallow ---
Medical Diagnosis - Medical Diagnoses Medical Diagnosis Description & ICD-10 Code(s): dysphagia (R13.10), acute exacerbation of congestive heart failure (I50.23) Inpatient [facility] [place] - General Date: 10/26/17 Date of Onset: 08/31/17 - History History Obtained From: Spouse -: Medical Medications: Medications Reviewed Allergies: Refer to medical record - Subjective Current Nutritional Means: PO Current PO Diet: Regular - regular solids with thin liquids Current Symptoms: Coughing - Patient's reports coughing with thin liquids, Pneumonia - patient's reports 3 pneumonias since 08/31/17 Pain: no signs/symptoms of pain - patient extremely lethargic and did not attempt to communicate with speech therapist - Objective Assessment: Upright - Food Trials Food Trials Used: Thin liquids, Pureed, Regular The Patient: fed by ST, via cup, via spoon, via straw - Assessment Labial Function: Within Functional Limits - Patient did not follow 1-step commands for oral motor exam most likely due to extreme lethargy Lingual Function: Within Functional Limits Mandibular Function: Within Functional Limits Dentition: Full Velo-Pharyngeal Function: Unremarkable Laryngeal Function: weak voicing, breathy voice - Pharyngeal Stage Initiation of Pharyngeal Stage: Normal Decreased Laryngeal Elevation: Yes - mild Reduced Velo-Pharyngeal Closure: no Reduced Pressure Generation: No Reduced Tongue Base Retraction: Yes - mild Pre-Swallowing Pooling in Valleculae: None Pre-Swallowing Pooling in Pyriforms: None Reduced Thyro-Hyiod Approximation: Yes - mild Reduced Epiglottic Excursion: Yes - mild Reduced Pharyngeal Peristalsis: No Post Swallow Residuals in Valleculae: None Post Swallow Residuals in Pyriforms: None Post Swallow Residuals: no residuals - Esophageal Stage Cricophageal Function: Normal Upper Esophageal Transit: Normal - Impression/Summary Laryngeal Penetration: Yes, Flash, Silent, during swallow - only with large sips of thin liquids. No penetration with small sips of thin liquids from straw. Tracheal Aspiration: no Patient Presents With: Pharyngeal stage dysph. - mild - characterized by flash penetration of large sips of thin liquids Risk of Aspiration: Minimal Risk of Nutritional Compromise: Mild - Recommendations NPO: no Solid Diet Recommendations: Regular - small bites Liquid Diet Recommendations: Thin - small sips Regular Diet: Yes Strict Aspitarion Precautions: Yes Dysphagia Therapy with ADJUSTMENT CLERK: Follow Up PRN Recommended Techniques: Fully Upright During Meal - educated patient and about all recommendations, Med Crushed in Applesauce, Small Bites and Sips Supervision: Independent - Time Total Time: 30 Total Timed Minutes: 30
[2017-10-26] MEDS: MAGNESIUM OXIDE 400 MG TABLET PO SCH ×2 (10:35→18:24)
[2017-10-26] MEDS: FERROUS SULFATE 325 MG TABLET PO SCH ×3 (10:35→18:24)
[2017-10-26] MEDS: ASCORBIC ACID 500 MG TABLET PO SCH (10:36)
[2017-10-26] MEDS: FUROSEMIDE 20 MG TABLET PO SCH (10:36)
[2017-10-26] MEDS: CLOPIDOGREL BISULFATE 75 MG TABLET PO SCH (10:36)
[2017-10-26] MEDS: METOPROLOL SUCCINATE 50 MG TAB.SR.24H PO SCH (10:36)
[2017-10-26] MEDS: LOTEMAX 0.5% OU SCH ×2 (10:37→18:23)
[2017-10-26] MEDS: ZINC SULFATE 220 MG CAPSULE PO SCH ×2 (10:37→18:24)
[2017-10-26] MEDS: ESTROPIPATE 1.25 MG PO PRN (10:37)
[2017-10-26] MEDS: DIGOXIN 0.125 MG TABLET PO SCH (10:37)
[2017-10-26] MEDS: ENOXAPARIN SODIUM INJ 40 MG/0.4 ML DISP.SYRIN SUBCUT SCH (10:38)
--- NOTE | 2017-10-26 11:17 | RADIOLOGY REPORT (SQ) ---
EXAM DESCRIPTION: CHEST SINGLE VIEW COMPLETED DATE/TIME: 10/26/2017 10:38 am REASON FOR STUDY: Fu PNa COMPARISON: Chest films 10/23/2017, 10/21/2017, 08/31/2017 EXAM PARAMETERS: NUMBER OF VIEWS: One view. TECHNIQUE: Single frontal radiographic view of the chest acquired. RADIATION DOSE: NA LIMITATIONS: None. FINDINGS: LUNGS AND PLEURA: Left retrocardiac air bronchograms are present from atelectasis or pneum onia. This is new compared to 08/31/2017 and similar compared to 10/21/2017 and 10/23/2017. Right lung grossly clear aside from bandlike scarring near the minor fissure No gross pleural effusion or pneumothorax MEDIASTINUM AND HILAR STRUCTURES: No masses. Contour normal. HEART AND VASCULAR STRUCTURES: Stable moderate cardiomegaly BONES: No acute findings. HARDWARE: None in the chest. OTHER: No other significant finding. IMPRESSION: Persistent left retrocardiac consolidation atelectasis versus pneumonia TECHNICAL DOCUMENTATION: JOB ID: [id number] [employer]- All Rights Reserved Reading location - IP/workstation name: [email or web address]-COUNT INCLUDES THE [facility]-RR
--- NOTE | 2017-10-26 11:35 | PDOC CONSULTATION ---
Consultation Consult Date: 10/26/17 Attending physician:: MEGHA BENITES Consult reason:: Respiratory failure History of Present Illness Admission Date/PCP: 10/21/17 02:22 MAJOR WORKMAN MD History of Present Illness: FARHEEN AGUILAR is a 82 year old female,present with shortness of breath and cough patient she has extensive history over the last 3 months of being admitted to [facility] and presented to her primary care doctor for recurrent pneumonias she denies any hemoptysis or PPD status is unknown to denies history of chronic lung disease as a child or adolescent she has never smoked but she admits to exposure to passive smoke as a child has an adult. She denies no significant occupational exposures to potential respiratory toxins. She has no pets and no recent travel. She denies angina-like chest pain sleeps on 4-6 pillows and cannot breathe if she is laying flat occasional PND occasional nocturnal cough and occasional edema. Snoring and witnessed apneas. Her spouse restlessly not to 2 times per night on restless sleep and excessive daytime somnolence. Past Medical History Cardiac Medical History: Reports: Atrial Fibrillation, Myocardial Infarction - non-stemi, Hyperlipidema, Hypertension, Other - Recent valvuloplasty Pulmonary Medical History: Reports: Chronic Obstructive Pulmonary Disease (COPD) , Pneumonia - Recurrent EENT Medical History: Denies: Ears, Throat Endocrine Medical History: Reports: Diabetes Mellitus Type 2, Hypothyroidism Musculoskeltal Medical History: Reports: Arthritis Psychiatric Medical History: Reports: Depression - anxiety Traumatic Medical History: Denies: Gunshot Wound, Traumatic Brain Injury Hematology: Denies: Hemophilia, Sickle Cell Disease Infectious Medical History: Denies: Clostridium Difficile Past Surgical History Past Surgical History: Reports: Cholecystectomy, Coronary Stent, Hysterectomy Social History Lives with: Spouse/Significant other Smoking Status: Never Smoker Passive smoke exposure as: Adult Frequency of Alcohol Use: None Hx Recreational Drug Use: No Drugs: None Hx Prescription Drug Abuse: No Do you have pets?: No Have you had any respiratory illnesses as a child?: No Have you been exposed to any sick contacts recently?: No Have you had any recent respiratory illnesses?: Yes Have you travelled outside of [place] in the past 12 months?: No - Advance Directive Resuscitation Status: Do Not Resuscitate Family History Family History: COPD, Hypertension, Malignancy Parental Family History Reviewed: Yes Children Family History Reviewed: Yes Sibling(s) Family History Reviewed.: Yes Medication/Allergy Home Medications: Alprazolam 1 mg PO QHS 10/18/15 Alprazolam [Xanax 0.5 mg Tablet] 0.5 mg PO NOON 10/18/15 Amlodipine Besylate 5 mg PO QHS 10/18/15 Atorvastatin Calcium 20 mg PO QHS 10/18/15 Estropipate [Ogen] 1.5 mg PO MOWEFR 10/18/15 Furosemide [Lasix 20 mg Tablet] 20 mg PO Q2D 10/18/15 Insulin Aspart [Novolog Flexpen] 0 unit SUBCUT .SLD SCALE 10/18/15 Insulin Detemir [Levemir Flextouch] 12 unit SQ QHS 10/18/15 Losartan Potassium [Cozaar 100 mg Tablet] 100 mg PO QHS 10/18/15 Loteprednol Etabonate [Lotemax] 1 applic OU BID 10/18/15 Meclizine HCl 25 mg PO DAILYP PRN 10/18/15 Metoprolol Succinate [Toprol Xl 50 mg Tab.sr] 50 mg PO QAM 10/18/15 [place]-3 Acid Ethyl Esters [Lovaza 1 gm Capsule] 1 gm PO DAILY 10/18/15 Polyethylene Glycol 3350 [Miralax Powder 17 gm/Packet] 1 packet PO DAILY PRN 05/23 Zinc Sulfate [Zinc-220 Capsule] 220 mg PO BID 10/18/15 Ascorbic Acid [Vitamin C 500 mg Tablet] 500 mg PO DAILY 10/21/17 Calcium Carbonate/Vitamin D3 [Calcium 600 + Vit D Tablet] 1 tab PO DAILY Clopidogrel Bisulfate [Plavix 75 mg Tablet] 75 mg PO DAILY 10/21/17 Cranberry Fruit Concentrate [Cranberry] 450 mg PO DAILY 10/21/17 Fluticasone/Salmeterol [Advair HFA 115-21 mcg Inhaler] 2 puff IH Q12 10/21/17 Guaifenesin/Dextromethorphan [Mucinex Dm ER 600-30 mg Tablet] 1 tab PO BID 10/21 Levothyroxine Sodium [Synthroid 0.075 mg Tablet] 0.075 mg PO DAILY 10/21/17 Ondansetron HCl [Zofran 4 mg Tablet] 1 tab PO Q6HP PRN 10/21/17 Oxycodone HCl/Acetaminophen [Percocet 7.5-325 mg Tablet] 1 tab PO Q8 10/21/17 Ubidecarenone [Co Q-10] 200 mg PO DAILY 10/21/17 Allergies/Adverse Reactions: aspirin [Aspirin] Allergy (Verified 10/18/15 14:53) codeine Allergy (Verified 10/21/17 08:57) erythromycin base [Erythromycin Base] Allergy (Verified 10/18/15 14:53) ibuprofen [From Motrin] Allergy (Verified 10/21/17 08:57) morphine [Morphine] Allergy (Verified 10/18/15 14:53) Sulfa (Sulfonamide Antibiotics) Allergy (Verified 10/18/15 14:53) Review of Systems Constitutional: PRESENT: chills, fever(s), weakness, weight gain, weight loss. ABSENT: headache(s), night sweats Eyes: ABSENT: visual disturbances Ears: ABSENT: hearing changes Nose, Mouth, and Throat: ABSENT: sore throat Cardiovascular: PRESENT: dyspnea on exertion, edema, orthropnea. ABSENT: palpitations Respiratory: PRESENT: cough, hemoptysis, sputum Gastrointestinal: PRESENT: constipation, dysphagia, heartburn, melena. ABSENT: abdominal pain, bloating, coffee ground emesis, diarrhea, hematemesis, hematochezia Genitourinary: PRESENT: nocturia. ABSENT: dysuria, hematuria Neurological: ABSENT: abnormal gait, abnormal movements, abnormal speech, confusion, focal weakness, frequent falls, lack of coordination, memory loss Psychiatric: PRESENT: depression. ABSENT: hallucinations, homidical ideation, suicidal ideation Endocrine: ABSENT: cold intolerance, heat intolerance, menstrual abnormalities Hematologic/Lymphatic: ABSENT: easy bleeding, easy bruising Allergic/Immunologic: PRESENT: seasonal rhinorrhea Physical Exam Vital Signs: Temp Pulse Resp BP Pulse Ox 97.3 F 73 16 133/49 H 95 10/26/17 07:43 10/26/17 07:43 10/26/17 07:43 10/26/17 07:43 10/26/17 08:00 Intake & Output 10/25/17 10/26/17 10/27/17 06:59 06:59 06:59 Intake Total 1112 1568 Output Total 1300 650 Balance -188 918 Weight 92 kg 87.7 kg General appearance: PRESENT: cooperative, disheveled, obese, well-developed, well-nourished Head exam: PRESENT: atraumatic, normocephalic Eye exam: PRESENT: conjunctiva pale, EOMI, PERRLA. ABSENT: nystagmus, periorbital swelling, scleral icterus Mouth exam: PRESENT: dry mucosa, neck supple, tongue midline Neck exam: ABSENT: carotid bruit, JVD, lymphadenopathy, thyromegaly, tracheal deviation, tracheostomy Respiratory exam: PRESENT: decreased breath sounds, prolonged expiratory phas, rales, rhonchi, unlabored, wheezes. ABSENT: retraction, stridor Cardiovascular exam: PRESENT: RRR, +S1, +S2, systolic murmur Pulses: PRESENT: normal radial pulses GI/Abdominal exam: PRESENT: hypoactive bowel sounds, soft Extremities exam: ABSENT: calf tenderness, clubbing, joint swelling Musculoskeletal exam: ABSENT: deformity, dislocation Neurological exam: PRESENT: alert, awake Psychiatric exam: PRESENT: flat affect Skin exam: PRESENT: dry, warm Results Laboratory Results: 10/24/17 07:30 10/25/17 05:01 10/21/17 07:15 Blood Blood Culture - Final NO GROWTH IN 5 DAYS 10/21/17 10/21/17 10/21/17 10:09 15:49 21:38 CK-MB (CK-2) 0.75 0.69 0.69 Troponin I 0.414 0.394 0.410 NT-Pro-B Natriuret Pep 10/22/17 10/23/17 10/24/17 05:17 05:10 07:30 CK-MB (CK-2) Troponin I 0.094 NT-Pro-B Natriuret Pep 2090 H 914 H Impressions: Head CT 10/20/17 22:37 IMPRESSION: 1. No acute intracranial abnormality by CT criteria. This exam was performed according to our departmental dose-optimization program, which includes automated exposure control, adjustment of the mA and/or kV according to patient size and/or use of iterative reconstruction technique. Chest CT 10/20/17 22:38 IMPRESSION: 1. Cardiomegaly with groundglass and interstitial opacities concerning for pulmonary edema with bibasilar compressive atelectasis. Underlying pneumonic process could produce a similar appearance. Continued radiographic follow-up recommended. 2. Small bilateral pleural effusions. 3. Mildly prominent right paratracheal lymph nodes are likely reactive or congestive. This exam was performed according to our departmental dose-optimization program, which includes automated exposure control, adjustment of the mA and/or kV according to patient size and/or use of iterative reconstruction technique. Chest X-Ray 10/26/17 00:00 IMPRESSION: Persistent left retrocardiac consolidation atelectasis versus pneumonia Assessment & Plan - Diagnosis (1) Aspiration into respiratory tract Is this a current diagnosis for this admission?: Yes Plan: See report modified barium swallow (2) Anxiety Is this a current diagnosis for this admission?: Yes (3) Hypercarbia Is this a current diagnosis for this admission?: Yes Plan: Hypoventilation due to immobility plus minus narcotics (4) Recurrent pneumonia Is this a current diagnosis for this admission?: Yes Plan: Probably multifactorial however modified barium swallow demonstrates aspiration with specific recommendations from speech pathology (5) COPD (chronic obstructive pulmonary disease) Qualifiers: COPD type: unspecified COPD Qualified Code(s): J44.9 - Chronic obstructive pulmonary disease, unspecified Is this a current diagnosis for this admission?: Yes Plan: Patient has never smoked but has been exposed to large amounts of passive smoke for 20 years we will treat as if she has obstructive ventilatory defect try to confirm the patient is most stable
--- NOTE | 2017-10-26 12:07 | RADIOLOGY REPORT (SQ) ---
EXAM DESCRIPTION: NEETA SWALLOW COMPLETED DATE/TIME: 10/26/2017 9:11 am REASON FOR STUDY: recurrent pneumonia COMPARISON: None. TECHNIQUE: Videofluoroscopic swallowing examination was performed in conjunction with speech patholo gy. Videofluoroscopic imaging was obtained and reviewed and these are the findings: RADIATION DOSE: 1 minutes 53 seconds of fluoroscopy was used. 1 images saved to PACS. LIMITATIONS: None FINDINGS: The patient was brought into the fluoro room and placed upright on a modified barium swall ow chair. The patient was then given multiple consistencies mixed with barium to swallow under live fluoroscopic video guidance. According to the Speech Pathologist there was flash laryngeal penetrati on with thin liquids. No aspiration seen. IMPRESSION: FLASH LARYNGEAL PENETRATION WITHOUT ASPIRATION.PLEASE SEE SPEECH PATHOLOGIST REPORT FOR OTHER FINDINGS AND RECOMMENDATIONS. COMMENT: Quality ID [id number]: Final reports for procedures using fluoroscopy that document radiation exp osure indices, or exposure time and number of fluorographic images (if radiation exposure indices are not available) TECHNICAL DOCUMENTATION: JOB ID: [id number] [employer]- All Rights Reserved Reading location - IP/workstation name: [id number]
--- NOTE | 2017-10-26 12:09 | PROGRESS NOTE E ---
Progress Note NAME: FARHEEN AGUILAR : 1935 AGE: 82Y DATE: 10/26/2017 ROOM: 321 SUBJECTIVE: The patient is lying in bed. The patient is awake, alert, and mainly answers yes or no, but is not able to answer in complete sentences or provide any significant history. The patient has been afebrile. Her blood pressures have been in a good range. The patient is still requiring O2. The patient is to have a swallow evaluation this afternoon and the patient does not voice any specific concerns at this time. BRIEF HISTORY: The patient is an 82-year-old female with a past medical history that includes chronic readmissions and a clinical picture of failure to thrive. The patient presented to the emergency department due to having a productive cough. The patient clinically does present with suspicions for aspiration pneumonia and the patient is unable to voice any concerns at this time. Additionally, there is some conflict as the patient's refuses to address code status and disposition with the patient where apparently some family members, as it is documented, have requested actual hospice placement for the patient. The patient has been seen and evaluated by Palliative Care, and again, the was unable to discuss advanced directives or the idea of hospice placement. Hopefully, with the results of the patient's swallow evaluation, may be able to use this to further a decision. REVIEW OF SYSTEMS: Unobtainable. MEDICATIONS: Reviewed. OBJECTIVE: GENERAL: The patient is a frail, chronically ill-appearing 82-year-old female who is awake, alert, but unable to fully assess orientation, does not appear to be distressed. VITAL SIGNS: Temperature is 97.3, pulse 73, respirations 16, blood pressure 133/49, oxygen saturation is 100% on 2.5 L nasal cannula. SKIN: Very pale. No rash. She is not diaphoretic. HEENT: Pupils are reactive. Conjunctiva is pale. There is no evidence of JVP. CARDIOVASCULAR SYSTEM: Heart is regular. No rub. CHEST: Clear, diminished, symmetrical. ABDOMEN: Soft, nontender. EXTREMITIES: No clubbing, cyanosis, edema. PSYCHIATRIC: The patient is not very responsive. DIAGNOSTICS: Lab values are as follows: Hematology obtained on 10/24/2017: WBCs are 6.5, hemoglobin is 9.1, hematocrit is 27.5, platelet count is 231,000. Chemistry obtained on 10/25/2017: Sodium is 138, potassium 4.3, chloride is 91, carbon dioxide 38, BUN 21, creatinine is 0.78, glucose 117. Calcium is 8.9, iron is 26, TIBC is 381, percent saturation is 7, ferritin is 35.6. IMPRESSION AND PLAN: 1. FAILURE TO THRIVE. The patient has had a rapid decline over the past few months, including multiple hospitalizations. The patient was discharged to rehab in the past, but was discharged from there due to her inability to participate. Conversation has been had with the patient's in regard to the hospice evaluation, but he is not willing to make any of those decisions at this time. 2. ACUTE ON CHRONIC SYSTOLIC AND DIASTOLIC CONGESTIVE HEART FAILURE. The patient was diuresed with IV Lasix with significant improvement of symptoms. She has been transitioned to p.o. Do appreciate Cardiology's help with this. 3. CHRONIC OBSTRUCTIVE PULMONARY DISEASE. The patient appears to be at baseline. Will continue current medication. 4. DIABETES MELLITUS TYPE 2, STABLE. Continue home medications. 5. STAGE 1 DECUBITUS ULCER OVER THE BILATERAL BUTTOCKS. Management is per nursing protocol. 6. ANXIETY. Overall, this does appear table. Continue current medications. 7. CHRONIC PAIN, CONTINUOUS. Continue the patient's home medication. 8. RECURRENT PNEUMONIA. There is suspicion for aspiration; however, the patient has had improvement without really great coverage for anaerobes. Therefore, will continue the Levaquin for now and await the results with the patient's swallow study and follow. 9. ACUTE ON CHRONIC HYPOXEMIC AND HYPERCAPNIC RESPIRATORY FAILURE. The patient will be seen by Dr. Barajas today. Hypercapnia did improve with BiPAP. 10. NON-ST ELEVATION ND TYPE 2, DEMAND ISCHEMIA. Troponins trended down. DISPOSITION: The patient is a FULL CODE. Pending patient's symptomatology and diagnostic findings, will re-evaluate in the a.m. May be able to proceed with further conversation once the patient has completed or modified barium swallow. Time spent on this followup including assessment, plan, physical examination, patient education, attempt at patient education, review of records, and specialty collaboration is 35 minutes. DICTATING PHYSICIAN: LISBETH BRAR NP [id number] PHY#: [id number] ID: [id number] JOB#: [id number] ACCT: [id number] cc: >
[2017-10-26] MEDS ORDERED: BUDESONIDE NEB 0.5 MG/2 ML AMPUL NEB ONE ×2 (12:30→14:15)
--- NOTE | 2017-10-26 13:54 | PROGRESS NOTE E ---
Progress Note NAME: FARHEEN AGUILAR : 1935 AGE: 82Y DATE: 10/26/2017 ROOM: 321 SUBJECTIVE: Note that the patient denies any chest pain or discomfort. She has no PND or leg edema. She has chronic orthopnea. The patient is more awake today. She had a cookie swallow study and a modified speech barium swallow which showed no significant risk of aspiration but has been advised on certain diets and consistencies. This has been reviewed by me. The patient has no recurrence of atrial fibrillation. There are no anginal symptoms. There are no symptoms of TIA or CVA. OBJECTIVE: GENERAL: The patient is moderately obese but well groomed. She appears to be chronically ill. VITAL SIGNS: She is afebrile with a temperature of 97.3 degrees Fahrenheit. Pulse is 73 beats per minute. Blood pressure is 133/49. Respirations are 16 per minute. O2 sats are 100% on 2.5 L nasal cannula. HEENT: Head is atraumatic, normocephalic. Eyes - Pupils are equal, round, regular, and reactive to light and accommodation. Extraocular movements are normal. There is no conjunctival pallor. There is no scleral icterus. ENT is negative. NECK: Supple. There is no JVD. Carotids are equal. There is no bruit. There is transmitted aortic murmur heard over the carotids. There is mild carotid delay. There is no lymphadenopathy. Trachea is central. LUNGS: Show a few dry crackles over the left base. There is also some dullness in the left base in a small area. The rest of the lungs show diminished air entry and prolonged expiration. On percussion there is hyperresonance. There is no rhonchi, rales, or wheezing elsewhere. HEART: S1 and S2 is heard; S1 is of normal intensity. There is no S3 gallop. There is no S4 gallop. There is a murmur of aortic stenosis present. A2 is muffled. There is mild carotid delay. There is a murmur of mitral regurgitation present. There is no rub. ABDOMEN: Soft, obese, nontender. There is no hepatosplenomegaly. Bowel sounds are well heard. There are no tender areas or masses. EXTREMITIES: Femorals are diminished. There are no femoral bruits. Leg pulses are diminished. There is trace ankle edema bilaterally. There is no cyanosis or clubbing. There is no DVT or cellulitis. There is no calf tenderness. CENTRAL NERVOUS SYSTEM: The patient is conscious, awake, alert, oriented x3, with no focal deficits. PSYCHIATRIC: The patient's judgement and insight are intact and affect is normal. DIAGNOSTICS: The chest x-ray shows persistent consolidation with atelectasis in the left base. The rest of the lungs are clear. There are no signs of CHF. The modified barium swallow report is flash laryngeal penetration without aspiration; please see Speech Pathology's report for final findings. This has been reviewed by me. The patient's glucose is 129 and 174. IMPRESSION: 1. PNEUMONIA WITH HYPOXEMIA, SEEMS TO BE IMPROVING. 2. CONGESTIVE HEART FAILURE, AT PRESENT COMPENSATED. 3. SOMNOLENCE SECONDARY TO MEDICATION AND CO2 RETENTION; THIS IS MUCH IMPROVED WITH THE PATIENT USING BIPAP AT NIGHT. 4. CARBON DIOXIDE NARCOSIS, SEEMS TO HAVE RESOLVED ON BIPAP THERAPY. 5. ELEVATED TROPONIN I SECONDARY TO PATIENT'S PNEUMONIA, CHF, AND HYPOXEMIA; NO DEFINITE EVIDENCE OF [id number] MO, TROPONIN HAS TRENDED DOWN. 6. CORONARY ARTERY DISEASE, HISTORY OF STENTS IN THE LAD, RCA, AND CIRCUMFLEX, WITH NO ANGINAL SYMPTOMS. HISTORY OF SMALL [id number] MO IN THE PAST PRIOR TO STENT PLACEMENTS. 7. AORTIC STENOSIS, MOST LIKELY MODERATE. 8. MITRAL REGURGITATION, MODERATE BY ECHO. 9. HYPERTENSION; BLOOD PRESSURE WELL CONTROLLED. 10. DIABETES MELLITUS, TYPE 2, INSULIN DEPENDENT. 11. COPD/ASTHMA WITH PNEUMONIA AND HYPOXEMIA; THIS IS MUCH IMPROVED. CHEST X-RAY FINDINGS NOTED ABOVE. 12. DEPRESSION. 13. ANEMIA; THE PATIENT HAS BEEN STARTED ON IRON SINCE THE B12 AND FOLATE LEVELS ARE NORMAL AND THE IRON LEVEL IS LOW. 14. NO SIGNIFICANT ASPIRATION. 15. PAROXYSMAL ATRIAL FIBRILLATION BY HISTORY. AT PRESENT THE PATIENT HAS NOT GONE BACK INTO ATRIAL FIBRILLATION; THE PATIENT IS IN SINUS RHYTHM. NOTE: The patient's medications have been reviewed. Discussed the swallow study with the patient and the patient's . Discussed with the attending physician on the case. Medical decision making is of moderate complexity. Note, *------* will follow the patient tomorrow. Note, 35 minutes were spent on the patient, more than 50% of the time spent in direct patient review and also discussions with the patient and the patient's about the barium swallow study. DICTATING PHYSICIAN: GEORGE NARANJO M.D. [id number] PHY#: [id number] ID: [id number] JOB#: [id number] ACCT: [id number] cc: >
[2017-10-26] MEDS: LEVOFLOXACIN 750 MG TABLET PO SCH (14:14)
[2017-10-26] MEDS: ALPRAZOLAM 0.5 MG TABLET PO SCH ×2 (14:14→22:04)
[2017-10-26] MEDS: BUDESONIDE NEB 0.5 MG/2 ML AMPUL NEB SCH (20:44)
[2017-10-26] MEDS: LOSARTAN POTASSIUM 50 MG TABLET PO SCH (22:04)
[2017-10-26] MEDS: ATORVASTATIN CALCIUM 20 MG TABLET PO SCH (22:04)
[2017-10-26] MEDS: AMLODIPINE BESYLATE 5 MG TABLET PO SCH (22:04)
--- NOTE | 2017-10-26 23:38 | Progress Note ---
Provider Note Provider Note: Palliative Care Note Visit: 10/26/17 11:50 AM Visit made with patient and to discuss advance directives. Patient in bed with oxygen per nasal cannula. Patient appeared to be asleep but occasionally opened her eyes and looked at me, appearing to want to interject into the conversation, but as I gave her opportunity, she closed her eyes again and said nothing. I discussed advance directives with Mr. Antunez and how important it is to know what the patient would like to have done and how much aggressive care she would want as this is her legal right to have her wishes followed. He asked me what choices I was talking about so I outlined options for care covered on the [facility] form. Mr. Antunez said he knows exactly what patient wants and what is best for her. We discussed making sure we were following her directions, not the ideas of ourselves for her care. He again tols me he knows what is best for her and anette he will be at her bedside at all times and will direct decisions if needed. He was very irritated with me for mentioning choices such as feeding tube or intubation/ventaltion because obviously she is getting better and doesn't need these things. Again, I explained that with her chronic problems, her condition could change very quickly and we would want to honor her wishes and choices. Again he explained that he will make decisions for her and he willbe here all of the time, even sleeping here at night. As I was preparing to leave, patient opened her eyes and was wide awake, so I felt sure she had been listening. Her nurse told me many providers have tried to have this conversation with him as thai has said she wants to be DNR, but he is making decisions. Patient does look to be improved today. I will try to have conversation with him about hospice and advance directives again in a few days. Will be available if needed. I gave him my card and phone number for questions.
[2017-10-27] MEDS: OXYCODONE HCL IR 5 MG TABLET PO PRN ×2 (01:01→20:13)
[2017-10-27] MEDS: OXYCODONE-ACETAMINOPHEN 5-325 MG TABLET PO PRN ×2 (01:01→20:12)
[2017-10-27 05:19] LABS: ABSOLUTE BASOPHILS # (AUTO) 0.1 10^3/uL (0.0-0.2); ABSOLUTE EOSINOPHILS # (AUTO) 0.2 10^3/uL (0.0-0.6); ABSOLUTE LYMPHOCYTES (AUTO) 1.6 10^3/uL (0.5-4.7); ABSOLUTE MONOCYTES (AUTO) 0.7 10^3/uL (0.1-1.4); ABSOLUTE NEUT (AUTO) 4.5 10^3/uL (1.7-8.2); BASOPHILS % (AUTO) 0.9 % (0-2); EOSINOPHILS % (AUTO) 3.1 % (0-6); HEMATOCRIT 26.7 % (36.0-47.0); HEMOGLOBIN 8.8 g/dL (12.0-15.5); LYMPHOCYTES % (AUTO) 22.3 % (13-45); MEAN CORPUSCULAR HEMOGLOBIN 28.1 pg (27.0-33.4); MEAN CORPUSCULAR HGB CONC 32.9 g/dL (32.0-36.0); MEAN CORPUSCULAR VOLUME 85 fl (80-97); MONOCYTES % (AUTO) 9.7 % (3-13); PLATELET COUNT 220 10^3/uL (150-450); RED BLOOD COUNT 3.13 10^6/uL (3.72-5.28); RED CELL DISTRIBUTION WIDTH 14.1 % (11.5-14.0); TOTAL CELLS COUNTED % (AUTO) 100 %
[2017-10-27 05:45] LABS: ANION GAP 12 (5-19); BLOOD UREA NITROGEN 22 mg/dL (7-20); CALCIUM 9.1 mg/dL (8.4-10.2); CARBON DIOXIDE 36 mmol/L (22-30); CHLORIDE 94 mmol/L (98-107); GLUCOSE 118 mg/dL (75-110); POTASSIUM 4.6 mmol/L (3.6-5.0); SODIUM 141.5 mmol/L (137-145)
[2017-10-27 06:17] LABS: ARTERIAL BLOOD BASE EXCESS 9.2 mmol/L; ARTERIAL BLOOD H2CO3 1.75 mmol/L (1.05-1.35); ARTERIAL BLOOD HCO3 35.6 mmol/L (20-26); ARTERIAL BLOOD O2 SATURATION 97.4 % (94-98); ARTERIAL BLOOD PCO2 58.1 mmHg (35-45); ARTERIAL BLOOD PH 7.41 (7.35-7.45); ARTERIAL BLOOD PO2 99.1 mmHg (80-100); ARTERIAL BLOOD TOTAL CO2 37.4 mmol/L (21-25)
[2017-10-27 06:18] LABS: ARTERIAL BLOOD FIO2 30%
[2017-10-27] MEDS: LANSOPRAZOLE 30 MG TAB.RAP.DR PO SCH (06:43)
[2017-10-27] MEDS: LEVOTHYROXINE SODIUM 0.075 MG TABLET PO SCH (06:43)
[2017-10-27] MEDS: BUDESONIDE NEB 0.5 MG/2 ML AMPUL NEB SCH ×2 (08:33→20:04)
[2017-10-27] MEDS: METOPROLOL SUCCINATE 50 MG TAB.SR.24H PO SCH (10:15)
[2017-10-27] MEDS: LOTEMAX 0.5% OU SCH ×2 (10:15→17:10)
[2017-10-27] MEDS: CLOPIDOGREL BISULFATE 75 MG TABLET PO SCH (10:17)
[2017-10-27] MEDS: FUROSEMIDE 20 MG TABLET PO SCH (10:18)
[2017-10-27] MEDS: ASCORBIC ACID 500 MG TABLET PO SCH (10:18)
[2017-10-27] MEDS: FERROUS SULFATE 325 MG TABLET PO SCH ×3 (10:18→17:10)
[2017-10-27] MEDS: MAGNESIUM OXIDE 400 MG TABLET PO SCH ×2 (10:18→17:09)
--- NOTE | 2017-10-27 10:19 | PDOC PROGRESS REPORT ---
Subjective Progress Note for:: 10/27/17 Subjective:: Patient is very fatigued and tired but denying any chest pain. She is noted to be laying comfortably in bed. Patient has been at bedside. Patient currently maintaining sinus rhythm. She is trying to work with the physical therapy. Patient previous cardiac evaluations are reviewed. Most recently in August 2017 she had aortic balloon valvuloplasty along with a heart catheterization which showed mostly nonobstructive disease in large coronary arteries.. Reason For Visit: HEART FAILURE Physical Exam Vital Signs: Temp Pulse Resp BP Pulse Ox 98.1 F 66 18 126/41 H 99 10/27/17 07:46 10/27/17 07:46 10/27/17 07:46 10/27/17 07:46 10/27/17 07:46 Intake & Output 10/26/17 10/27/17 10/28/17 06:59 06:59 06:59 Intake Total 1568 637 Output Total 650 1250 Balance 918 -613 Weight 87.7 kg 88.5 kg Exam: GENERAL: well-nourished and in no acute distress. Alert and oriented x 2 HEAD: Atraumatic, normocephalic. EYES: Pupils equal round and reactive to light, extraocular movements intact, sclera anicteric, conjunctiva are normal. ENT: TMs normal, nares patent, oropharynx clear without exudates. Moist mucous membranes. No oral ulcerations or bleeding gums noted NECK: supple without lymphadenopathy. Trachea is central. No cervical or axillary lymphadenopathy noted. Carotids are 2+, JVD WNL LUNGS: Respiration seems nonlabored, no significant accessory muscle action noted. Bibasilar fine crackles and few a scattered wheezes rales or rhonchi noted. No significant dullness noted on percussion. CHEST: Palpation of the chest wall shows no significant chest wall tenderness. HEART: [place] COLOR CHECKER ROVING OR YARN, No PSH, 3/6 DIYA aortic area, 1/6 jay systolic murmur mitral area , no rubs, no gallops. ABDOMEN: Soft, no significant tenderness appreciated, normoactive bowel sounds. No guarding, no rebound. No rigidity noted . No masses appreciated. EXTREMITIES: Pedal pulses are 1-2+, no calf tenderness noted. No clubbing or cyanosis. 1+ pedal edema noted NEUROLOGICAL: Focused neurological exam showed no significant neurologic deficit. Normal speech, no focal weakness appreciated. PSYCH: Normal mood, normal affect. Judgment and insight not checked. SKIN: No significant ecchymosis, skin is noted to be warm. MUSCULOSKELETAL EXAM: No significant acute joint swelling noted. Results Laboratory Results: 10/27/17 04:48 10/27/17 04:48 10/27/17 10/27/17 10/27/17 04:48 04:48 05:50 WBC 7.0 RBC 3.13 L Hgb 8.8 L Hct 26.7 L MCV 85 MCH 28.1 MCHC 32.9 RDW 14.1 H Plt Count 220 Seg Neutrophils % 64.0 Lymphocytes % 22.3 Monocytes % 9.7 Eosinophils % 3.1 Basophils % 0.9 Absolute Neutrophils 4.5 Absolute Lymphocytes 1.6 Absolute Monocytes 0.7 Absolute Eosinophils 0.2 Absolute Basophils 0.1 Carbonic Acid 1.75 H HCO3/H2CO3 Ratio 20:1 ABG pH 7.41 ABG pCO2 58.1 H ABG pO2 99.1 ABG HCO3 35.6 H ABG O2 Saturation 97.4 ABG Base Excess 9.2 FiO2 30% Sodium 141.5 Potassium 4.6 Chloride 94 L Carbon Dioxide 36 H Anion Gap 12 BUN 22 H Creatinine 0.89 Est GFR ( Amer) > 60 Est GFR (Non-Af Amer) > 60 Glucose 118 H Calcium 9.1 Magnesium 2.3 10/21/17 07:15 Blood Blood Culture - Final NO GROWTH IN 5 DAYS 10/21/17 10/21/17 10/21/17 10:09 15:49 21:38 CK-MB (CK-2) 0.75 0.69 0.69 Troponin I 0.414 0.394 0.410 NT-Pro-B Natriuret Pep 10/22/17 10/23/17 10/24/17 05:17 05:10 07:30 CK-MB (CK-2) Troponin I 0.094 NT-Pro-B Natriuret Pep 2090 H 914 H EKG Comments: Telemetry strip showing sinus rhythm, bundle branch block pattern. Mild intermittent bradycardia noted. Impressions: Head CT 10/20/17 22:37 IMPRESSION: 1. No acute intracranial abnormality by CT criteria. This exam was performed according to our departmental dose-optimization program, which includes automated exposure control, adjustment of the mA and/or kV according to patient size and/or use of iterative reconstruction technique. Chest CT 10/20/17 22:38 IMPRESSION: 1. Cardiomegaly with groundglass and interstitial opacities concerning for pulmonary edema with bibasilar compressive atelectasis. Underlying pneumonic process could produce a similar appearance. Continued radiographic follow-up recommended. 2. Small bilateral pleural effusions. 3. Mildly prominent right paratracheal lymph nodes are likely reactive or congestive. This exam was performed according to our departmental dose-optimization program, which includes automated exposure control, adjustment of the mA and/or kV according to patient size and/or use of iterative reconstruction technique. Chest X-Ray 10/26/17 00:00 IMPRESSION: Persistent left retrocardiac consolidation atelectasis versus pneumonia Modified Barium Swallow 10/26/17 00:00 IMPRESSION: FLASH LARYNGEAL PENETRATION WITHOUT ASPIRATION.PLEASE SEE SPEECH PATHOLOGIST REPORT FOR OTHER FINDINGS AND RECOMMENDATIONS. Assessment & Plan - Diagnosis (1) Acute exacerbation of CHF (congestive heart failure) Qualifiers: Heart failure type: diastolic Qualified Code(s): I50.33 - Acute on chronic diastolic (congestive) heart failure Is this a current diagnosis for this admission?: Yes (2) COPD (chronic obstructive pulmonary disease) Qualifiers: COPD type: unspecified COPD Qualified Code(s): J44.9 - Chronic obstructive pulmonary disease, unspecified Is this a current diagnosis for this admission?: Yes (3) Failure to thrive Qualifiers: Failure to thrive age range: in adult Qualified Code(s): R62.7 - Adult failure to thrive Is this a current diagnosis for this admission?: Yes (4) Hyperlipidemia Qualifiers: Hyperlipidemia type: unspecified Qualified Code(s): E78.5 - Hyperlipidemia , unspecified Is this a current diagnosis for this admission?: Yes (5) Hypertension Qualifiers: Hypertension type: essential hypertension Qualified Code(s): I10 - Essential (primary) hypertension Is this a current diagnosis for this admission?: Yes (6) Weakness Is this a current diagnosis for this admission?: Yes (7) A-fib Qualifiers: Atrial fibrillation type: paroxysmal Qualified Code(s): I48.0 - Paroxysmal atrial fibrillation Is this a current diagnosis for this admission?: Yes (8) NSTEMI (non-ST elevated myocardial infarction) Is this a current diagnosis for this admission?: Yes (9) Valvular heart disease Is this a current diagnosis for this admission?: Yes - Notes Notes: RECOMMENDATIONS: Acute exacerbation of CHF: Diastolic acute on chronic. Patient noted to have significant LVH. She also has valvular heart disease. At this point recommend continuation of diuretic therapy. Since patient is bradycardic will hold digoxin. May consider adding Ranexa at a later date. COPD: Currently stable. Failure to thrive: Patient did not have any meaningful physical activity since August. Patient is trying to work with the physical therapy but very weak and tired. Dyslipidemia: Continue statin therapy. Hypertension: Currently blood pressure under reasonable control. Continue with current regimen. Generalized weakness: Patient will benefit from physical therapy. This is being instituted. Atrial fibrillation: Paroxysmal. Patient has been maintaining sinus rhythm. She would be a candidate for chronic anticoagulation, however patient has marked general debility, currently also on dual antiplatelet therapy. Will leave any decision regarding chronic anticoagulation to patient's primary care net application support specialist and primary counselor at this point. Please note that patient is also quite anemic. There are some contraindications. Patient noted to have elevated has bled score. Non-STEMI: Type II related to supply demand mismatch. Patient had recent heart catheterization just a few months ago. No plans for any ischemia evaluation at this point. Valvular heart disease: Patient has history of significant valvular heart disease and is recently had balloon valvuloplasty of the aortic valve. Recent 2D echocardiogram obtained this admission suggest moderate aortic stenosis. Patient also noted to have mild to moderate mitral regurgitation. At this point continue close observation. Feel that there can be repeated need a balloon valvuloplasty. Patient should follow-up with spare parts clerk on discharge. Patient has multiple significant comorbid diagnosis, prognosis is likely to be on the guarded side. - Time Time with patient: Greater than 35 minutes - CODE STATUS was discussed, patient remains full code. Surrogate decision-maker patient's . Multiple medical problems were addressed. More than 50% of the time spent coordinating care, discussing management plans with involved caregivers. Management plans discussed with involved personnels. Medical decision making was of moderate to high complexity, patient's has multiple comorbidities. Medications reviewed and adjusted accordingly: Yes
[2017-10-27] MEDS: ENOXAPARIN SODIUM INJ 40 MG/0.4 ML DISP.SYRIN SUBCUT SCH (10:27)
[2017-10-27] MEDS: ZINC SULFATE 220 MG CAPSULE PO SCH ×2 (10:29→17:09)
[2017-10-27] MEDS ORDERED: METOPROLOL SUCCINATE 25 MG TAB.SR.24H PO ONE (10:30)
--- NOTE | 2017-10-27 11:42 | PDOC PROGRESS REPORT ---
Subjective Progress Note for:: 10/27/17 Subjective:: unchanged Reason For Visit: HEART FAILURE Physical Exam Vital Signs: Temp Pulse Resp BP Pulse Ox 98.1 F 77 16 126/41 H 99 10/27/17 07:46 10/27/17 08:33 10/27/17 08:33 10/27/17 07:46 10/27/17 07:46 Intake & Output 10/26/17 10/27/17 10/28/17 06:59 06:59 06:59 Intake Total 1568 637 Output Total 650 1250 Balance 918 -613 Weight 87.7 kg 88.5 kg General appearance: PRESENT: no acute distress, cooperative, disheveled Head exam: PRESENT: atraumatic, normocephalic Eye exam: PRESENT: conjunctiva pale, EOMI, PERRLA. ABSENT: nystagmus, periorbital swelling, scleral icterus Mouth exam: PRESENT: dry mucosa, neck supple, tongue midline Neck exam: ABSENT: carotid bruit, JVD, lymphadenopathy, thyromegaly, tracheal deviation, tracheostomy Respiratory exam: PRESENT: decreased breath sounds, prolonged expiratory phas, rales, rhonchi, unlabored. ABSENT: retraction Cardiovascular exam: PRESENT: RRR, +S1, +S2 Pulses: PRESENT: normal radial pulses GI/Abdominal exam: PRESENT: normal bowel sounds, soft Gentrourinary exam: PRESENT: indwelling catheter Extremities exam: ABSENT: calf tenderness, clubbing, joint swelling Musculoskeletal exam: ABSENT: deformity, dislocation Neurological exam: PRESENT: alert, awake Psychiatric exam: PRESENT: flat affect Skin exam: PRESENT: dry, warm Results Laboratory Results: 10/27/17 04:48 10/27/17 04:48 10/27/17 10/27/17 10/27/17 04:48 04:48 05:50 WBC 7.0 RBC 3.13 L Hgb 8.8 L Hct 26.7 L MCV 85 MCH 28.1 MCHC 32.9 RDW 14.1 H Plt Count 220 Seg Neutrophils % 64.0 Lymphocytes % 22.3 Monocytes % 9.7 Eosinophils % 3.1 Basophils % 0.9 Absolute Neutrophils 4.5 Absolute Lymphocytes 1.6 Absolute Monocytes 0.7 Absolute Eosinophils 0.2 Absolute Basophils 0.1 Carbonic Acid 1.75 H HCO3/H2CO3 Ratio 20:1 ABG pH 7.41 ABG pCO2 58.1 H ABG pO2 99.1 ABG HCO3 35.6 H ABG O2 Saturation 97.4 ABG Base Excess 9.2 FiO2 30% Sodium 141.5 Potassium 4.6 Chloride 94 L Carbon Dioxide 36 H Anion Gap 12 BUN 22 H Creatinine 0.89 Est GFR ( Amer) > 60 Est GFR (Non-Af Amer) > 60 Glucose 118 H Calcium 9.1 Magnesium 2.3 10/21/17 10/21/17 10/21/17 10:09 15:49 21:38 CK-MB (CK-2) 0.75 0.69 0.69 Troponin I 0.414 0.394 0.410 NT-Pro-B Natriuret Pep 10/22/17 10/23/17 10/24/17 05:17 05:10 07:30 CK-MB (CK-2) Troponin I 0.094 NT-Pro-B Natriuret Pep 2090 H 914 H Impressions: Head CT 10/20/17 22:37 IMPRESSION: 1. No acute intracranial abnormality by CT criteria. This exam was performed according to our departmental dose-optimization program, which includes automated exposure control, adjustment of the mA and/or kV according to patient size and/or use of iterative reconstruction technique. Chest CT 10/20/17 22:38 IMPRESSION: 1. Cardiomegaly with groundglass and interstitial opacities concerning for pulmonary edema with bibasilar compressive atelectasis. Underlying pneumonic process could produce a similar appearance. Continued radiographic follow-up recommended. 2. Small bilateral pleural effusions. 3. Mildly prominent right paratracheal lymph nodes are likely reactive or congestive. This exam was performed according to our departmental dose-optimization program, which includes automated exposure control, adjustment of the mA and/or kV according to patient size and/or use of iterative reconstruction technique. Chest X-Ray 10/26/17 00:00 IMPRESSION: Persistent left retrocardiac consolidation atelectasis versus pneumonia Modified Barium Swallow 10/26/17 00:00 IMPRESSION: FLASH LARYNGEAL PENETRATION WITHOUT ASPIRATION.PLEASE SEE SPEECH PATHOLOGIST REPORT FOR OTHER FINDINGS AND RECOMMENDATIONS. Assessment & Plan - Diagnosis (1) Aspiration into respiratory tract Is this a current diagnosis for this admission?: Yes Plan: See report modified barium swallow (2) Anxiety Is this a current diagnosis for this admission?: Yes (3) Hypercarbia Is this a current diagnosis for this admission?: Yes Plan: Hypoventilation due to immobility plus minus narcotics (4) Recurrent pneumonia Is this a current diagnosis for this admission?: Yes Plan: Probably multifactorial however modified barium swallow demonstrates aspiration with specific recommendations from speech pathology (5) COPD (chronic obstructive pulmonary disease) Qualifiers: COPD type: unspecified COPD Qualified Code(s): J44.9 - Chronic obstructive pulmonary disease, unspecified Is this a current diagnosis for this admission?: Yes Plan: Patient has never smoked but has been exposed to large amounts of passive smoke for 20 years we will treat as if she has obstructive ventilatory defect try to confirm the patient is most stable
[2017-10-27] MEDS: ALPRAZOLAM 0.5 MG TABLET PO SCH ×2 (13:09→22:01)
[2017-10-27] MEDS: LEVOFLOXACIN 750 MG TABLET PO SCH (13:09)
--- NOTE | 2017-10-27 18:26 | PDOC PROGRESS REPORT ---
Subjective Progress Note for:: 10/27/17 Subjective:: The patient is sleeping in her bed. She was arousable. I am not sure if she was just sleepy but she cannot answer any questions. Her was not at the bedside. A review of systems could not be obtained Reason For Visit: HEART FAILURE Physical Exam Vital Signs: Temp Pulse Resp BP Pulse Ox 97.4 F 69 18 129/46 H 100 10/27/17 15:32 10/27/17 15:32 10/27/17 15:32 10/27/17 15:32 10/27/17 15:32 Intake & Output 10/26/17 10/27/17 10/28/17 06:59 06:59 06:59 Intake Total 1568 637 236 Output Total 650 1250 100 Balance 918 -613 136 Weight 87.7 kg 88.5 kg General appearance: PRESENT: obese, other - She will woke up to a sternal rub but would not answer questions Head exam: PRESENT: atraumatic, normocephalic Eye exam: PRESENT: conjunctiva pink, EOMI, PERRLA. ABSENT: scleral icterus Mouth exam: PRESENT: moist, tongue midline Respiratory exam: PRESENT: other - She would not cooperate for an exam. Her lungs sound fairly clear anteriorly. She is diminished in the lower bases bilaterally Cardiovascular exam: PRESENT: RRR, systolic murmur - 3 out of 6 systolic ejection murmur. ABSENT: diastolic murmur, rubs Pulses: PRESENT: normal dorsalis pedis pul Vascular exam: PRESENT: normal capillary refill GI/Abdominal exam: PRESENT: normal bowel sounds, soft. ABSENT: distended, guarding, mass, organolmegaly, rebound, tenderness Rectal exam: PRESENT: deferred Extremities exam: PRESENT: +1 edema Musculoskeletal exam: ABSENT: ambulatory Neurological exam: PRESENT: other - She awoke briefly but would not answer questions and just went right back to sleep Psychiatric exam: PRESENT: other - Difficult to assess that she was so sleepy Results Laboratory Results: 10/27/17 04:48 10/27/17 04:48 10/27/17 10/27/17 10/27/17 04:48 04:48 05:50 WBC 7.0 RBC 3.13 L Hgb 8.8 L Hct 26.7 L MCV 85 MCH 28.1 MCHC 32.9 RDW 14.1 H Plt Count 220 Seg Neutrophils % 64.0 Lymphocytes % 22.3 Monocytes % 9.7 Eosinophils % 3.1 Basophils % 0.9 Absolute Neutrophils 4.5 Absolute Lymphocytes 1.6 Absolute Monocytes 0.7 Absolute Eosinophils 0.2 Absolute Basophils 0.1 Carbonic Acid 1.75 H HCO3/H2CO3 Ratio 20:1 ABG pH 7.41 ABG pCO2 58.1 H ABG pO2 99.1 ABG HCO3 35.6 H ABG O2 Saturation 97.4 ABG Base Excess 9.2 FiO2 30% Sodium 141.5 Potassium 4.6 Chloride 94 L Carbon Dioxide 36 H Anion Gap 12 BUN 22 H Creatinine 0.89 Est GFR ( Amer) > 60 Est GFR (Non-Af Amer) > 60 Glucose 118 H Calcium 9.1 Magnesium 2.3 10/21/17 10/21/17 10/21/17 10:09 15:49 21:38 CK-MB (CK-2) 0.75 0.69 0.69 Troponin I 0.414 0.394 0.410 NT-Pro-B Natriuret Pep 10/22/1718 10/24/17 05:17 05:10 07:30 CK-MB (CK-2) Troponin I 0.094 NT-Pro-B Natriuret Pep 2090 H 914 H Impressions: Head CT 10/20/17 22:37 IMPRESSION: 1. No acute intracranial abnormality by CT criteria. This exam was performed according to our departmental dose-optimization program, which includes automated exposure control, adjustment of the mA and/or kV according to patient size and/or use of iterative reconstruction technique. Chest CT 10/20/17 22:38 IMPRESSION: 1. Cardiomegaly with groundglass and interstitial opacities concerning for pulmonary edema with bibasilar compressive atelectasis. Underlying pneumonic process could produce a similar appearance. Continued radiographic follow-up recommended. 2. Small bilateral pleural effusions. 3. Mildly prominent right paratracheal lymph nodes are likely reactive or congestive. This exam was performed according to our departmental dose-optimization program, which includes automated exposure control, adjustment of the mA and/or kV according to patient size and/or use of iterative reconstruction technique. Chest X-Ray 10/26/17 00:00 IMPRESSION: Persistent left retrocardiac consolidation atelectasis versus pneumonia Modified Barium Swallow 10/26/17 00:00 IMPRESSION: FLASH LARYNGEAL PENETRATION WITHOUT ASPIRATION.PLEASE SEE SPEECH PATHOLOGIST REPORT FOR OTHER FINDINGS AND RECOMMENDATIONS. Assessment & Plan - Diagnosis (1) Acute on chronic respiratory failure with hypoxia and hypercapnia Is this a current diagnosis for this admission?: Yes Plan: This reportedly is resolved. The patient is quite drowsy at the time of my visit. She is stable on current regimen. She is not requiring BiPAP. Continue BiPAP at night (2) Acute on chronic combined systolic and diastolic CHF (congestive heart failure) Is this a current diagnosis for this admission?: Yes Plan: She has been transitioned to an oral regimen at this point. She does not appear to be acutely volume overloaded (3) Aspiration pneumonia Is this a current diagnosis for this admission?: Yes Plan: Continue Levaquin for now. 6 barium swallow did not reveal any tali aspiration. (4) Failure to thrive Is this a current diagnosis for this admission?: Yes Plan: Further discussions need to be had with the patient's family. I believe this patient is reaching the end of her life. We will try to discuss with the over the course of the next couple of days. (5) COPD (chronic obstructive pulmonary disease) Is this a current diagnosis for this admission?: Yes Plan: She has been followed closely by Dr. Barajas. Continue current plan of care. She is stable (6) Stage I decubitus ulcer and pressure area Is this a current diagnosis for this admission?: Yes Plan: Continue local wound care (7) Opiate dependence, continuous Is this a current diagnosis for this admission?: Yes Plan: Continue current regimen. She appears to be quite comfortable (8) Chronic pain syndrome Is this a current diagnosis for this admission?: Yes Plan: As above (9) NSTEMI (non-ST elevated myocardial infarction) Is this a current diagnosis for this admission?: Yes Plan: Secondary to her congestive heart failure exacerbation. No further workup (10) Valvular disease Is this a current diagnosis for this admission?: Yes Plan: She has been followed by cardiology. There is nothing to do about this she is not a surgical candidate. (11) Full code status Is this a current diagnosis for this admission?: Yes - Time Time Spent with patient: 25-34 minutes - Inpatient Certification Medical Necessity: Other - Inpatient hospitalization remains necessary. We are going to get physical therapy and occupational therapy to see the patient today. The patient's would like for her to improve. However she has not really ambulated over the past year. The recommendation would be a transition to palliative care and to get hospice involved. Further discussions need to be had with the family.
[2017-10-27] MEDS: AMLODIPINE BESYLATE 5 MG TABLET PO SCH (22:00)
[2017-10-27] MEDS: LOSARTAN POTASSIUM 50 MG TABLET PO SCH (22:00)
[2017-10-27] MEDS: ATORVASTATIN CALCIUM 20 MG TABLET PO SCH (22:01)
[2017-10-28] MEDS: LANSOPRAZOLE 30 MG TAB.RAP.DR PO SCH (06:10)
[2017-10-28] MEDS: LEVOTHYROXINE SODIUM 0.075 MG TABLET PO SCH (06:10)
[2017-10-28] MEDS: BUDESONIDE NEB 0.5 MG/2 ML AMPUL NEB SCH ×2 (09:35→20:15)
[2017-10-28] MEDS: ZINC SULFATE 220 MG CAPSULE PO SCH ×2 (10:45→17:31)
[2017-10-28] MEDS: CLOPIDOGREL BISULFATE 75 MG TABLET PO SCH (10:45)
[2017-10-28] MEDS: MAGNESIUM OXIDE 400 MG TABLET PO SCH ×2 (10:46→17:30)
[2017-10-28] MEDS: DIGOXIN 0.125 MG TABLET PO SCH (10:46)
[2017-10-28] MEDS: FERROUS SULFATE 325 MG TABLET PO SCH ×3 (10:46→17:30)
[2017-10-28] MEDS: FUROSEMIDE 20 MG TABLET PO SCH (10:46)
[2017-10-28] MEDS: ASCORBIC ACID 500 MG TABLET PO SCH (10:47)
[2017-10-28] MEDS: METOPROLOL SUCCINATE 50 MG TAB.SR.24H PO SCH (10:47)
[2017-10-28] MEDS: ENOXAPARIN SODIUM INJ 40 MG/0.4 ML DISP.SYRIN SUBCUT SCH (10:54)
[2017-10-28] MEDS: LOTEMAX 0.5% OU SCH ×2 (11:00→17:35)
--- NOTE | 2017-10-28 11:30 | PDOC PROGRESS REPORT ---
Subjective Progress Note for:: 10/28/17 Subjective:: unchanged Reason For Visit: HEART FAILURE Physical Exam Vital Signs: Temp Pulse Resp BP Pulse Ox 97.4 F 80 15 142/59 H 100 10/28/17 07:57 10/28/17 09:35 10/28/17 09:35 10/28/17 07:57 10/28/17 09:35 Intake & Output 10/27/17 10/28/17 10/29/17 06:59 06:59 06:59 Intake Total 637 1206 Output Total 1250 725 Balance -613 481 Weight 88.5 kg 89.7 kg General appearance: PRESENT: no acute distress, cooperative, disheveled, obese Head exam: PRESENT: atraumatic, normocephalic Eye exam: PRESENT: conjunctiva pale, EOMI, PERRLA. ABSENT: nystagmus, periorbital swelling, scleral icterus Mouth exam: PRESENT: dry mucosa, neck supple, tongue midline Neck exam: ABSENT: carotid bruit, JVD, lymphadenopathy, thyromegaly, tracheal deviation, tracheostomy Respiratory exam: PRESENT: decreased breath sounds, prolonged expiratory phas, rhonchi, unlabored, wheezes. ABSENT: stridor Cardiovascular exam: PRESENT: RRR, +S1, +S2 Pulses: PRESENT: normal radial pulses GI/Abdominal exam: PRESENT: normal bowel sounds, soft Extremities exam: ABSENT: calf tenderness, clubbing, joint swelling Musculoskeletal exam: ABSENT: deformity, dislocation Neurological exam: PRESENT: alert, awake Psychiatric exam: PRESENT: flat affect Skin exam: PRESENT: dry, warm Results Laboratory Results: 10/27/17 04:48 10/27/17 04:48 10/21/17 10/21/17 10/21/17 10:09 15:49 21:38 CK-MB (CK-2) 0.75 0.69 0.69 Troponin I 0.414 0.394 0.410 NT-Pro-B Natriuret Pep 10/22/17 10/23/17 10/24/17 05:17 05:10 07:30 CK-MB (CK-2) Troponin I 0.094 NT-Pro-B Natriuret Pep 2090 H 914 H Impressions: Head CT 10/20/17 22:37 IMPRESSION: 1. No acute intracranial abnormality by CT criteria. This exam was performed according to our departmental dose-optimization program, which includes automated exposure control, adjustment of the mA and/or kV according to patient size and/or use of iterative reconstruction technique. Chest CT 10/20/17 22:38 IMPRESSION: 1. Cardiomegaly with groundglass and interstitial opacities concerning for pulmonary edema with bibasilar compressive atelectasis. Underlying pneumonic process could produce a similar appearance. Continued radiographic follow-up recommended. 2. Small bilateral pleural effusions. 3. Mildly prominent right paratracheal lymph nodes are likely reactive or congestive. This exam was performed according to our departmental dose-optimization program, which includes automated exposure control, adjustment of the mA and/or kV according to patient size and/or use of iterative reconstruction technique. Chest X-Ray 10/26/17 00:00 IMPRESSION: Persistent left retrocardiac consolidation atelectasis versus pneumonia Modified Barium Swallow 10/26/17 00:00 IMPRESSION: FLASH LARYNGEAL PENETRATION WITHOUT ASPIRATION.PLEASE SEE SPEECH PATHOLOGIST REPORT FOR OTHER FINDINGS AND RECOMMENDATIONS. Assessment & Plan - Diagnosis (1) Aspiration into respiratory tract Is this a current diagnosis for this admission?: Yes Plan: See report modified barium swallow (2) Anxiety Is this a current diagnosis for this admission?: Yes (3) Hypercarbia Is this a current diagnosis for this admission?: Yes Plan: Hypoventilation due to immobility plus minus narcotics (4) Recurrent pneumonia Is this a current diagnosis for this admission?: Yes Plan: Probably multifactorial however modified barium swallow demonstrates aspiration with specific recommendations from speech pathology (5) COPD (chronic obstructive pulmonary disease) Qualifiers: COPD type: unspecified COPD Qualified Code(s): J44.9 - Chronic obstructive pulmonary disease, unspecified Is this a current diagnosis for this admission?: Yes Plan: Patient has never smoked but has been exposed to large amounts of passive smoke for 20 years we will treat as if she has obstructive ventilatory defect try to confirm the patient is most stable
[2017-10-28] MEDS: ALPRAZOLAM 0.5 MG TABLET PO SCH ×2 (13:13→23:31)
[2017-10-28] MEDS: LEVOFLOXACIN 750 MG TABLET PO SCH (13:13)
--- NOTE | 2017-10-28 18:24 | PDOC PROGRESS REPORT ---
Subjective Progress Note for:: 10/28/17 Subjective:: The patient is resting in her bed. Her is not at the bedside. She is awake and much more alert today. She appears to be significantly depressed and she is quite tearful. She will not really tell me what is wrong except that she is just sad. I did discuss with her for a long time the situation. At this point she indicates that she wants to go to subacute rehabilitation. We will get the discharge planners working on this. She also would like me to talk to her and her tomorrow. It was difficult to get a review of systems out of the patient. She would have tears rolling down her face and would just look at me if I asked her how she was feeling. She was able to indicate she was not having any pain. Reason For Visit: HEART FAILURE Physical Exam Vital Signs: Temp Pulse Resp BP Pulse Ox 98.4 F 70 14 137/46 H 100 10/28/17 15:52 10/28/17 15:52 10/28/17 15:52 10/28/17 15:52 10/28/17 15:52 Intake & Output 10/27/17 10/28/17 10/29/17 06:59 06:59 06:59 Intake Total 637 1206 287 Output Total 1250 725 500 Balance -613 481 -213 Weight 88.5 kg 89.7 kg General appearance: PRESENT: no acute distress, obese, well-developed, other - Chronically ill-appearing Head exam: PRESENT: atraumatic, normocephalic Mouth exam: PRESENT: moist, tongue midline Respiratory exam: PRESENT: decreased breath sounds - She is diminished in the lower bases bilaterally. This was an anterior exam in her lungs sound fairly clear Cardiovascular exam: PRESENT: RRR. ABSENT: diastolic murmur, rubs, systolic murmur Pulses: PRESENT: normal dorsalis pedis pul GI/Abdominal exam: PRESENT: normal bowel sounds, soft. ABSENT: distended, guarding, mass, organolmegaly, rebound, tenderness Rectal exam: PRESENT: deferred Extremities exam: PRESENT: full ROM. ABSENT: calf tenderness, clubbing, pedal edema Musculoskeletal exam: ABSENT: ambulatory Neurological exam: PRESENT: alert, awake, oriented to person, oriented to place , oriented to time, oriented to situation, other - She is profoundly weak Psychiatric exam: PRESENT: appropriate affect, other - She is quite tearful. ABSENT: homicidal ideation, suicidal ideation Skin exam: PRESENT: dry, intact, warm. ABSENT: cyanosis, rash Results Laboratory Results: 10/27/17 04:48 10/27/17 04:48 10/21/17 10/21/17 10/21/17 10:09 15:49 21:38 CK-MB (CK-2) 0.75 0.69 0.69 Troponin I 0.414 0.394 0.410 NT-Pro-B Natriuret Pep 10/22/17 10/23/17 10/24/17 05:17 05:10 07:30 CK-MB (CK-2) Troponin I 0.094 NT-Pro-B Natriuret Pep 2090 H 914 H Impressions: Head CT 10/20/17 22:37 IMPRESSION: 1. No acute intracranial abnormality by CT criteria. This exam was performed according to our departmental dose-optimization program, which includes automated exposure control, adjustment of the mA and/or kV according to patient size and/or use of iterative reconstruction technique. Chest CT 10/20/17 22:38 IMPRESSION: 1. Cardiomegaly with groundglass and interstitial opacities concerning for pulmonary edema with bibasilar compressive atelectasis. Underlying pneumonic process could produce a similar appearance. Continued radiographic follow-up recommended. 2. Small bilateral pleural effusions. 3. Mildly prominent right paratracheal lymph nodes are likely reactive or congestive. This exam was performed according to our departmental dose-optimization program, which includes automated exposure control, adjustment of the mA and/or kV according to patient size and/or use of iterative reconstruction technique. Chest X-Ray 10/26/17 00:00 IMPRESSION: Persistent left retrocardiac consolidation atelectasis versus pneumonia Modified Barium Swallow 10/26/17 00:00 IMPRESSION: FLASH LARYNGEAL PENETRATION WITHOUT ASPIRATION.PLEASE SEE SPEECH PATHOLOGIST REPORT FOR OTHER FINDINGS AND RECOMMENDATIONS. Assessment & Plan - Diagnosis (1) Acute on chronic respiratory failure with hypoxia and hypercapnia Is this a current diagnosis for this admission?: Yes Plan: This reportedly is resolved. She is much more alert today. She is stable on current regimen. She is not requiring BiPAP. Continue BiPAP at night (2) Acute on chronic combined systolic and diastolic CHF (congestive heart failure) Is this a current diagnosis for this admission?: Yes Plan: She has been transitioned to an oral regimen at this point. She does not appear to be acutely volume overloaded (3) Aspiration pneumonia Is this a current diagnosis for this admission?: Yes Plan: Continue Levaquin for now. Her barium swallow did not reveal any tali aspiration. This is day #4 of treatment (4) Failure to thrive Is this a current diagnosis for this admission?: Yes Plan: Further discussions need to be had with the patient's family. I believe this patient is reaching the end of her life. We will try to discuss with the over the course of the next couple of days. The patient does indicate that she is agreeable to try rehab. (5) COPD (chronic obstructive pulmonary disease) Is this a current diagnosis for this admission?: Yes Plan: She has been followed closely by Dr. Barajas. Continue current plan of care. She is stable (6) Stage I decubitus ulcer and pressure area Is this a current diagnosis for this admission?: Yes Plan: Continue local wound care (7) Opiate dependence, continuous Is this a current diagnosis for this admission?: Yes Plan: Continue current regimen. She appears to be quite comfortable (8) Chronic pain syndrome Is this a current diagnosis for this admission?: Yes Plan: As above (9) NSTEMI (non-ST elevated myocardial infarction) Is this a current diagnosis for this admission?: Yes Plan: Secondary to her congestive heart failure exacerbation. No further workup (10) Valvular disease Is this a current diagnosis for this admission?: Yes Plan: She has been followed by cardiology. There is nothing to do about this she is not a surgical candidate. (11) Full code status Is this a current diagnosis for this admission?: Yes - Time Time Spent with patient: 25-34 minutes - Inpatient Certification Medical Necessity: Other - Inpatient hospitalization remains necessary. The patient has waxing and waning respiratory issues. Overall she is improving. Will discuss with the discharge planners and her the plan of care going forward.
--- NOTE | 2017-10-28 19:41 | PDOC PROGRESS REPORT ---
Subjective Progress Note for:: 10/28/17 Subjective:: Patient awaiting for more physical therapy. Currently she is denying any chest pain, palpitations, syncope, near syncope. Currently patient is maintaining sinus rhythm. Patient does complain of being fatigued and tired. She is noted to be laying comfortably in bed. Patient at bedside. Patient currently maintaining sinus rhythm. She is trying to work with the physical therapy. Patient previous cardiac evaluations are reviewed. Most recently in August 2017 she had aortic balloon valvuloplasty along with a heart catheterization which showed mostly nonobstructive disease in large coronary arteries.. Reason For Visit: HEART FAILURE Physical Exam Vital Signs: Temp Pulse Resp BP Pulse Ox 98.4 F 70 14 137/46 H 100 10/28/17 15:52 10/28/17 15:52 10/28/17 15:52 10/28/17 15:52 10/28/17 15:52 Intake & Output 10/27/17 10/28/17 10/29/17 06:59 06:59 06:59 Intake Total 637 1206 287 Output Total 1250 725 500 Balance -613 481 -213 Weight 88.5 kg 89.7 kg Exam: GENERAL: well-nourished and in no acute distress. Alert and oriented x 2 HEAD: Atraumatic, normocephalic. EYES: Pupils equal round and reactive to light, extraocular movements intact, sclera anicteric, conjunctiva are normal. ENT: TMs normal, nares patent, oropharynx clear without exudates. Moist mucous membranes. No oral ulcerations or bleeding gums noted NECK: supple without lymphadenopathy. Trachea is central. No cervical or axillary lymphadenopathy noted. Carotids are 2+, JVD WNL LUNGS: Respiration seems nonlabored, no significant accessory muscle action noted. Bibasilar fine crackles and few scattered wheezes rales or rhonchi noted. No significant dullness noted on percussion. CHEST: Palpation of the chest wall shows no significant chest wall tenderness. HEART: [place] PEDIATRIC ONCOLOGY NURSE, No PSH, 3/6 DIYA aortic area, 1/6 jya systolic murmur mitral area , no rubs, no gallops. ABDOMEN: Soft, no significant tenderness appreciated, normoactive bowel sounds. No guarding, no rebound. No rigidity noted . No masses appreciated. EXTREMITIES: Pedal pulses are 1-2+, no calf tenderness noted. No clubbing or cyanosis. negative pedal edema noted NEUROLOGICAL: Focused neurological exam showed no significant neurologic deficit. Normal speech, no focal weakness appreciated. PSYCH: Normal mood, normal affect. Judgment and insight within normal limits. SKIN: No significant ecchymosis, skin is noted to be warm. MUSCULOSKELETAL EXAM: No significant acute joint swelling noted. Results Laboratory Results: 10/27/17 04:48 10/27/17 04:48 10/21/17 10/21/17 10/21/17 10:09 15:49 21:38 CK-MB (CK-2) 0.75 0.69 0.69 Troponin I 0.414 0.394 0.410 NT-Pro-B Natriuret Pep 10/22/17 10/23/17 10/24/17 05:17 05:10 07:30 CK-MB (CK-2) Troponin I 0.094 NT-Pro-B Natriuret Pep 2090 H 914 H EKG Comments: Shows sinus rhythm with left bundle branch block pattern. Impressions: Head CT 10/20/17 22:37 IMPRESSION: 1. No acute intracranial abnormality by CT criteria. This exam was performed according to our departmental dose-optimization program, which includes automated exposure control, adjustment of the mA and/or kV according to patient size and/or use of iterative reconstruction technique. Chest CT 10/20/17 22:38 IMPRESSION: 1. Cardiomegaly with groundglass and interstitial opacities concerning for pulmonary edema with bibasilar compressive atelectasis. Underlying pneumonic process could produce a similar appearance. Continued radiographic follow-up recommended. 2. Small bilateral pleural effusions. 3. Mildly prominent right paratracheal lymph nodes are likely reactive or congestive. This exam was performed according to our departmental dose-optimization program, which includes automated exposure control, adjustment of the mA and/or kV according to patient size and/or use of iterative reconstruction technique. Chest X-Ray 10/26/17 00:00 IMPRESSION: Persistent left retrocardiac consolidation atelectasis versus pneumonia Modified Barium Swallow 10/26/17 00:00 IMPRESSION: FLASH LARYNGEAL PENETRATION WITHOUT ASPIRATION.PLEASE SEE SPEECH PATHOLOGIST REPORT FOR OTHER FINDINGS AND RECOMMENDATIONS. Assessment & Plan - Diagnosis (1) Bradycardia Is this a current diagnosis for this admission?: Yes (2) Acute exacerbation of CHF (congestive heart failure) Qualifiers: Heart failure type: diastolic Qualified Code(s): I50.33 - Acute on chronic diastolic (congestive) heart failure Is this a current diagnosis for this admission?: Yes (3) COPD (chronic obstructive pulmonary disease) Qualifiers: COPD type: unspecified COPD Qualified Code(s): J44.9 - Chronic obstructive pulmonary disease, unspecified Is this a current diagnosis for this admission?: Yes (4) Failure to thrive Qualifiers: Failure to thrive age range: in adult Qualified Code(s): R62.7 - Adult failure to thrive Is this a current diagnosis for this admission?: Yes (5) Hyperlipidemia Qualifiers: Hyperlipidemia type: unspecified Qualified Code(s): E78.5 - Hyperlipidemia , unspecified Is this a current diagnosis for this admission?: Yes (6) Hypertension Qualifiers: Hypertension type: essential hypertension Qualified Code(s): I10 - Essential (primary) hypertension Is this a current diagnosis for this admission?: Yes (7) Weakness Is this a current diagnosis for this admission?: Yes (8) A-fib Qualifiers: Atrial fibrillation type: paroxysmal Qualified Code(s): I48.0 - Paroxysmal atrial fibrillation Is this a current diagnosis for this admission?: Yes (9) NSTEMI (non-ST elevated myocardial infarction) Is this a current diagnosis for this admission?: Yes (10) Valvular heart disease Is this a current diagnosis for this admission?: Yes - Notes Notes: RECOMMENDATIONS: Bradycardia: This was noted yesterday. Digoxin was held. After review of 2D echocardiogram which shows LVH and normal LVEF, decided to discontinue digoxin completely. Since patient did not have significant obstructive CAD enlarged coronary blood vessels, decided to reduce metoprolol succinate to 50 mg p.o. daily. Patient seems to be stable on current regimen. Patient to have physical therapy. Acute exacerbation of CHF: Diastolic acute on chronic. Patient noted to have significant LVH. She also has valvular heart disease. At this point recommend continuation of diuretic therapy. Digoxin discontinued. May consider adding Ranexa at a later date. Have reduced metoprolol succinate to 50 mg p.o. daily. Continue with salt and fluid restriction. COPD: Currently stable. Failure to thrive: Patient did not have any meaningful physical activity since August. Patient is trying to work with the physical therapy but very weak and tired. Dyslipidemia: Continue statin therapy. Hypertension: Currently blood pressure under reasonable control. Continue with current regimen. Generalized weakness: Patient will benefit from physical therapy. This is being instituted. Atrial fibrillation: Paroxysmal. Patient has been maintaining sinus rhythm. She would be a candidate for chronic anticoagulation, however patient has marked general debility, currently also on dual antiplatelet therapy. Will leave any decision regarding chronic anticoagulation to patient's primary care business performance specialist and research geologist at this point. Please note that patient is also quite anemic. There are some contraindications. Patient noted to have elevated has bled score. Non-STEMI: Type II related to supply demand mismatch. Patient had recent heart catheterization just a few months ago. No plans for any ischemia evaluation at this point. Valvular heart disease: Patient has history of significant valvular heart disease and is recently had balloon valvuloplasty of the aortic valve. Recent 2D echocardiogram obtained this admission suggest moderate aortic stenosis. Patient also noted to have mild to moderate mitral regurgitation. At this point continue close observation. Feel that there can be repeated need a balloon valvuloplasty. Patient should follow-up with hull builder on discharge. Patient has multiple significant comorbid diagnosis, prognosis is likely to be on the guarded side. - Time Time with patient: Greater than 35 minutes - CODE STATUS was discussed, patient remains full code. Surrogate decision-maker unchanged. Multiple medical problems were addressed. More than 50% of the time spent coordinating care, discussing management plans with involved caregivers. Management plans discussed with involved personnels. Medical decision making was of moderate to high complexity, patient's has multiple comorbidities. Medications reviewed and adjusted accordingly: Yes
[2017-10-28] MEDS: ATORVASTATIN CALCIUM 20 MG TABLET PO SCH (22:25)
[2017-10-28] MEDS: LOSARTAN POTASSIUM 50 MG TABLET PO SCH (22:25)
[2017-10-28] MEDS: AMLODIPINE BESYLATE 5 MG TABLET PO SCH (22:25)
[2017-10-29 05:55] LABS: ABSOLUTE BASOPHILS # (AUTO) 0.1 10^3/uL (0.0-0.2); ABSOLUTE EOSINOPHILS # (AUTO) 0.3 10^3/uL (0.0-0.6); ABSOLUTE LYMPHOCYTES (AUTO) 1.8 10^3/uL (0.5-4.7); ABSOLUTE MONOCYTES (AUTO) 0.7 10^3/uL (0.1-1.4); ABSOLUTE NEUT (AUTO) 4.8 10^3/uL (1.7-8.2); BASOPHILS % (AUTO) 1.1 % (0-2); EOSINOPHILS % (AUTO) 3.8 % (0-6); HEMATOCRIT 26.5 % (36.0-47.0); HEMOGLOBIN 8.8 g/dL (12.0-15.5); LYMPHOCYTES % (AUTO) 23.4 % (13-45); MEAN CORPUSCULAR HEMOGLOBIN 28.1 pg (27.0-33.4); MEAN CORPUSCULAR HGB CONC 33.1 g/dL (32.0-36.0); MEAN CORPUSCULAR VOLUME 85 fl (80-97); MONOCYTES % (AUTO) 8.8 % (3-13); PLATELET COUNT 209 10^3/uL (150-450); RED BLOOD COUNT 3.12 10^6/uL (3.72-5.28); RED CELL DISTRIBUTION WIDTH 14.2 % (11.5-14.0); SEGMENTED NEUTROPHILS % (AUTO) 62.9 % (42-78); TOTAL CELLS COUNTED % (AUTO) 100 %; WHITE BLOOD COUNT 7.6 10^3/uL (4.0-10.5)
[2017-10-29] MEDS: LANSOPRAZOLE 30 MG TAB.RAP.DR PO SCH (06:13)
[2017-10-29] MEDS: LEVOTHYROXINE SODIUM 0.075 MG TABLET PO SCH (06:13)
[2017-10-29 06:17] LABS: ANION GAP 7 (5-19); BLOOD UREA NITROGEN 24 mg/dL (7-20); CALCIUM 9.6 mg/dL (8.4-10.2); CARBON DIOXIDE 35 mmol/L (22-30); CHLORIDE 97 mmol/L (98-107); GLUCOSE 112 mg/dL (75-110); POTASSIUM 4.5 mmol/L (3.6-5.0); SODIUM 139.3 mmol/L (137-145)
[2017-10-29] MEDS: FERROUS SULFATE 325 MG TABLET PO SCH ×3 (08:45→18:12)
[2017-10-29] MEDS: OXYCODONE-ACETAMINOPHEN 5-325 MG TABLET PO PRN ×2 (08:47→22:47)
[2017-10-29] MEDS: OXYCODONE HCL IR 5 MG TABLET PO PRN ×2 (08:48→22:48)
[2017-10-29] MEDS: METOPROLOL SUCCINATE 50 MG TAB.SR.24H PO SCH (08:48)
[2017-10-29] MEDS: BUDESONIDE NEB 0.5 MG/2 ML AMPUL NEB SCH ×2 (09:24→20:22)
[2017-10-29] MEDS: FUROSEMIDE 20 MG TABLET PO SCH (10:31)
[2017-10-29] MEDS: ENOXAPARIN SODIUM INJ 40 MG/0.4 ML DISP.SYRIN SUBCUT SCH (10:31)
[2017-10-29] MEDS: ESTROPIPATE 1.25 MG PO PRN (10:31)
[2017-10-29] MEDS: LOTEMAX 0.5% OU SCH ×2 (10:31→18:13)
[2017-10-29] MEDS: CLOPIDOGREL BISULFATE 75 MG TABLET PO SCH (10:31)
[2017-10-29] MEDS: ASCORBIC ACID 500 MG TABLET PO SCH (10:31)
[2017-10-29] MEDS: MAGNESIUM OXIDE 400 MG TABLET PO SCH ×2 (10:31→18:12)
[2017-10-29] MEDS: ZINC SULFATE 220 MG CAPSULE PO SCH ×2 (10:31→18:12)
[2017-10-29] MEDS: INSULIN LISPRO 100 UNIT/ML 3 ML VIAL SUBCUT PRN (12:15)
[2017-10-29] MEDS: ALPRAZOLAM 0.5 MG TABLET PO SCH ×2 (12:16→22:49)
--- NOTE | 2017-10-29 13:17 | PDOC PROGRESS REPORT ---
Subjective Progress Note for:: 10/29/17 Subjective:: Feeling better but as usual having a hard time breathing through nose Reason For Visit: HEART FAILURE Physical Exam Vital Signs: Temp Pulse Resp BP Pulse Ox 97.9 F 81 18 128/43 H 95 10/29/17 04:18 10/29/17 09:24 10/29/17 09:24 10/29/17 04:18 10/29/17 09:24 Intake & Output 10/28/17 10/29/17 10/30/17 06:59 06:59 06:59 Intake Total 1206 884 Output Total 725 1050 Balance 481 -166 Weight 89.7 kg 94 kg General appearance: PRESENT: no acute distress, cooperative, disheveled, morbidly obese Head exam: PRESENT: atraumatic, normocephalic Eye exam: PRESENT: conjunctiva pale, EOMI. ABSENT: nystagmus, periorbital swelling, scleral icterus Mouth exam: PRESENT: dry mucosa, neck supple, tongue midline Neck exam: ABSENT: carotid bruit, JVD, lymphadenopathy, thyromegaly, tracheal deviation, tracheostomy Respiratory exam: PRESENT: decreased breath sounds, prolonged expiratory phas, rhonchi, unlabored. ABSENT: retraction, stridor Cardiovascular exam: PRESENT: RRR, +S1, +S2 Pulses: PRESENT: normal radial pulses GI/Abdominal exam: PRESENT: normal bowel sounds, soft Extremities exam: ABSENT: calf tenderness, clubbing Musculoskeletal exam: ABSENT: deformity, dislocation Neurological exam: PRESENT: alert, awake Psychiatric exam: PRESENT: flat affect Skin exam: PRESENT: dry, warm Results Laboratory Results: 10/29/17 05:13 10/29/17 05:13 10/29/17 10/29/17 05:13 05:13 WBC 7.6 RBC 3.12 L Hgb 8.8 L Hct 26.5 L MCV 85 MCH 28.1 MCHC 33.1 RDW 14.2 H Plt Count 209 Seg Neutrophils % 62.9 Lymphocytes % 23.4 Monocytes % 8.8 Eosinophils % 3.8 Basophils % 1.1 Absolute Neutrophils 4.8 Absolute Lymphocytes 1.8 Absolute Monocytes 0.7 Absolute Eosinophils 0.3 Absolute Basophils 0.1 Sodium 139.3 Potassium 4.5 Chloride 97 L Carbon Dioxide 35 H Anion Gap 7 BUN 24 H Creatinine 0.63 Est GFR ( Amer) > 60 Est GFR (Non-Af Amer) > 60 Glucose 112 H Calcium 9.6 Magnesium 2.3 10/21/17 10/21/17 10/21/17 10:09 15:49 21:38 CK-MB (CK-2) 0.75 0.69 0.69 Troponin I 0.414 0.394 0.410 NT-Pro-B Natriuret Pep 10/22/17 10/23/17 10/24/17 05:17 05:10 07:30 CK-MB (CK-2) Troponin I 0.094 NT-Pro-B Natriuret Pep 2090 H 914 H Impressions: Head CT 10/20/17 22:37 IMPRESSION: 1. No acute intracranial abnormality by CT criteria. This exam was performed according to our departmental dose-optimization program, which includes automated exposure control, adjustment of the mA and/or kV according to patient size and/or use of iterative reconstruction technique. Chest CT 10/20/17 22:38 IMPRESSION: 1. Cardiomegaly with groundglass and interstitial opacities concerning for pulmonary edema with bibasilar compressive atelectasis. Underlying pneumonic process could produce a similar appearance. Continued radiographic follow-up recommended. 2. Small bilateral pleural effusions. 3. Mildly prominent right paratracheal lymph nodes are likely reactive or congestive. This exam was performed according to our departmental dose-optimization program, which includes automated exposure control, adjustment of the mA and/or kV according to patient size and/or use of iterative reconstruction technique. Chest X-Ray 10/26/17 00:00 IMPRESSION: Persistent left retrocardiac consolidation atelectasis versus pneumonia Modified Barium Swallow 10/26/17 00:00 IMPRESSION: FLASH LARYNGEAL PENETRATION WITHOUT ASPIRATION.PLEASE SEE SPEECH PATHOLOGIST REPORT FOR OTHER FINDINGS AND RECOMMENDATIONS. Assessment & Plan - Diagnosis (1) Aspiration into respiratory tract Is this a current diagnosis for this admission?: Yes Plan: See report modified barium swallow (2) Anxiety Is this a current diagnosis for this admission?: Yes (3) Hypercarbia Is this a current diagnosis for this admission?: Yes (4) Recurrent pneumonia Is this a current diagnosis for this admission?: Yes Plan: Probably multifactorial however modified barium swallow demonstrates aspiration with specific recommendations from speech pathology (5) COPD (chronic obstructive pulmonary disease) Qualifiers: COPD type: unspecified COPD Qualified Code(s): J44.9 - Chronic obstructive pulmonary disease, unspecified Is this a current diagnosis for this admission?: Yes Plan: Improving
[2017-10-29] MEDS: LEVOFLOXACIN 750 MG TABLET PO SCH (14:33)
--- NOTE | 2017-10-29 15:55 | RADIOLOGY REPORT (SQ) ---
EXAM DESCRIPTION: CT FACIAL AREA WITHOUT COMPLETED DATE/TIME: 10/29/2017 3:38 pm REASON FOR STUDY: unable to breathvia nose chronic sinus COMPARISON: CT facial bones and sinuses 09/25/2009 TECHNIQUE: Noncontrasted images through the facial bones and orbits windowed for bone and soft tissu e. Additional coronal and sagittal reconstructed images reviewed. All images stored on PACS. All CT scanners at this facility use dose modulation, iterative reconstruction, and/or weight based d osing when appropriate to reduce radiation dose to as low as reasonably achievable (ALARA). [facility]: Dose Right [facility]: CareDose [facility]: Dose Right [facility]: Teradose 4D [facility]: EndoChoice RADIATION DOSE: 44.4 mGy. LIMITATIONS: None. FINDINGS: FACIAL BONES: No fracture or bone lesion. ORBITS: Intact. No fracture. Symmetric intact globes and retroorbital soft tissues. PARANASAL SINUSES: Clear. No significant mucosal thickening, mass or fluid. No nasal polyps. Maxill low sinus outlets are patent. SOFT TISSUES: No mass or edema. INFERIOR BRAIN: Limited view. Chronic bifrontal white matter small vessel ischemic change. OTHER: No other significant finding. IMPRESSION: NO ACUTE FINDINGS. TECHNICAL DOCUMENTATION: JOB ID: [id number] Quality ID # [id number]: Final reports with documentation of one or more dose reduction techniques (e.g., Au tomated exposure control, adjustment of the mA and/or kV according to patient size, use of iterative reconstruction technique) 2010 [employer]- All Rights Reserved Reading location - IP/workstation name: [facility]
[2017-10-29] MEDS: NYSTATIN CREAM 15 GM TP SCH (18:13)
--- NOTE | 2017-10-29 19:46 | PDOC PROGRESS REPORT ---
Subjective Progress Note for:: 10/29/17 Subjective:: The patient is an unfortunate 82-year-old female with a past medical history significant for systolic and diastolic congestive heart failure as well as chronic obstructive pulmonary disease. Recently she has had multiple hospitalization for respiratory issues including recurrent pneumonias. The patient likely has some element of aspiration. Basically at this point she is failure to thrive. We have now gotten her over this acute episode and she is stable. However she is profoundly weak. Multiple conversations have been had with the patient's who is quite adamant that she is going to get better. Currently she is awaiting placement for subacute rehabilitation today. Overall I had a long discussion with her and her today. The patient herself confirms that she would like to continue to be a full code. She also says that she is going to work hard to get her strength back at rehab. Today her biggest complaint is that she is weak. She has had no fever chills. No chest pain, shortness of breath or cough. Or heart palpitations. Her shortness of breath is stable. No nausea vomiting or diarrhea. Reason For Visit: HEART FAILURE Physical Exam Vital Signs: Temp Pulse Resp BP Pulse Ox 98.1 F 72 16 129/43 H 96 10/29/17 16:25 10/29/17 16:25 10/29/17 16:25 10/29/17 16:25 10/29/17 16:40 Intake & Output 10/28/17 10/29/17 10/30/17 06:59 06:59 06:59 Intake Total 1206 884 635 Output Total 725 1050 450 Balance 481 -166 185 Weight 89.7 kg 94 kg General appearance: PRESENT: no acute distress, obese, well-developed, other - Chronically ill-appearing and week Head exam: PRESENT: atraumatic, normocephalic Eye exam: PRESENT: conjunctiva pink, EOMI, PERRLA. ABSENT: scleral icterus Mouth exam: PRESENT: moist, tongue midline Respiratory exam: PRESENT: clear to auscultation douglas, other - Poor effort. This was an anterior exam. She is diminished in the lower bases bilaterally. ABSENT: rales, rhonchi, wheezes Cardiovascular exam: PRESENT: RRR. ABSENT: diastolic murmur, rubs, systolic murmur GI/Abdominal exam: PRESENT: normal bowel sounds, soft. ABSENT: distended, guarding, mass, organolmegaly, rebound, tenderness Rectal exam: PRESENT: deferred Extremities exam: PRESENT: full ROM. ABSENT: calf tenderness, clubbing, pedal edema Neurological exam: PRESENT: alert, awake, oriented to person, oriented to place , oriented to time, oriented to situation, CN II-XII grossly intact. ABSENT: motor sensory deficit Psychiatric exam: PRESENT: appropriate affect, normal mood. ABSENT: homicidal ideation, suicidal ideation Skin exam: PRESENT: dry, intact, warm. ABSENT: cyanosis, rash Results Laboratory Results: 10/29/17 05:13 10/29/17 05:13 10/29/17 10/29/17 05:13 05:13 WBC 7.6 RBC 3.12 L Hgb 8.8 L Hct 26.5 L MCV 85 MCH 28.1 MCHC 33.1 RDW 14.2 H Plt Count 209 Seg Neutrophils % 62.9 Lymphocytes % 23.4 Monocytes % 8.8 Eosinophils % 3.8 Basophils % 1.1 Absolute Neutrophils 4.8 Absolute Lymphocytes 1.8 Absolute Monocytes 0.7 Absolute Eosinophils 0.3 Absolute Basophils 0.1 Sodium 139.3 Potassium 4.5 Chloride 97 L Carbon Dioxide 35 H Anion Gap 7 BUN 24 H Creatinine 0.63 Est GFR ( Amer) > 60 Est GFR (Non-Af Amer) > 60 Glucose 112 H Calcium 9.6 Magnesium 2.3 10/21/17 10/21/17 10/21/17 10:09 15:49 21:38 CK-MB (CK-2) 0.75 0.69 0.69 Troponin I 0.414 0.394 0.410 NT-Pro-B Natriuret Pep 10/22/17 10/23/17 10/24/17 05:17 05:10 07:30 CK-MB (CK-2) Troponin I 0.094 NT-Pro-B Natriuret Pep 2090 H 914 H Impressions: Head CT 10/20/17 22:37 IMPRESSION: 1. No acute intracranial abnormality by CT criteria. This exam was performed according to our departmental dose-optimization program, which includes automated exposure control, adjustment of the mA and/or kV according to patient size and/or use of iterative reconstruction technique. Chest CT 10/20/17 22:38 IMPRESSION: 1. Cardiomegaly with groundglass and interstitial opacities concerning for pulmonary edema with bibasilar compressive atelectasis. Underlying pneumonic process could produce a similar appearance. Continued radiographic follow-up recommended. 2. Small bilateral pleural effusions. 3. Mildly prominent right paratracheal lymph nodes are likely reactive or congestive. This exam was performed according to our departmental dose-optimization program, which includes automated exposure control, adjustment of the mA and/or kV according to patient size and/or use of iterative reconstruction technique. Chest X-Ray 10/26/17 00:00 IMPRESSION: Persistent left retrocardiac consolidation atelectasis versus pneumonia Modified Barium Swallow 10/26/17 00:00 IMPRESSION: FLASH LARYNGEAL PENETRATION WITHOUT ASPIRATION.PLEASE SEE SPEECH PATHOLOGIST REPORT FOR OTHER FINDINGS AND RECOMMENDATIONS. Facial Bones CT 10/29/17 00:00 IMPRESSION: NO ACUTE FINDINGS. Assessment & Plan - Diagnosis (1) Acute on chronic respiratory failure with hypoxia and hypercapnia Is this a current diagnosis for this admission?: Yes Plan: This reportedly is resolved. She is much more alert today. She is stable on current regimen. She is not requiring BiPAP. Continue BiPAP at night (2) Acute on chronic combined systolic and diastolic CHF (congestive heart failure) Is this a current diagnosis for this admission?: Yes Plan: She has been transitioned to an oral regimen at this point. She does not appear to be acutely volume overloaded (3) Aspiration pneumonia Is this a current diagnosis for this admission?: Yes Plan: Continue Levaquin for now. Her barium swallow did not reveal any tali aspiration however she does have laryngeal penetration. This is day #5 of treatment (4) Failure to thrive Is this a current diagnosis for this admission?: Yes Plan: The at this point is adamant that he would like for her to go to rehab. I did discuss with them both and she seems to be motivated and states that she wants to go at this point. (5) COPD (chronic obstructive pulmonary disease) Is this a current diagnosis for this admission?: Yes Plan: She has been followed closely by Dr. Barajas. Continue current plan of care. She is stable (6) Stage I decubitus ulcer and pressure area Is this a current diagnosis for this admission?: Yes Plan: Continue local wound care (7) Opiate dependence, continuous Is this a current diagnosis for this admission?: Yes Plan: Continue current regimen. She appears to be quite comfortable (8) Chronic pain syndrome Is this a current diagnosis for this admission?: Yes (9) NSTEMI (non-ST elevated myocardial infarction) Is this a current diagnosis for this admission?: Yes Plan: Secondary to her congestive heart failure exacerbation. No further workup (10) Valvular disease Is this a current diagnosis for this admission?: Yes (11) Full code status Is this a current diagnosis for this admission?: Yes - Time Time Spent with patient: 35 or more minutes - Inpatient Certification Medical Necessity: Other - Inpatient hospitalization remains necessary for disposition. At this point the patient is medically stable for discharge. She will be transitioned to a facility as soon as a bed is found
[2017-10-29] MEDS: IPRATROPIUM/ALBUTEROL 0.5-2.5 MG/3 ML AMPUL NEB PRN (20:22)
[2017-10-29] MEDS: AMLODIPINE BESYLATE 5 MG TABLET PO SCH (22:50)
[2017-10-29] MEDS: ATORVASTATIN CALCIUM 20 MG TABLET PO SCH (22:50)
[2017-10-29] MEDS: LOSARTAN POTASSIUM 50 MG TABLET PO SCH (22:52)
[2017-10-30] MEDS: LEVOTHYROXINE SODIUM 0.075 MG TABLET PO SCH (05:40)
[2017-10-30] MEDS: LANSOPRAZOLE 30 MG TAB.RAP.DR PO SCH (05:40)
[2017-10-30] MEDS: METOPROLOL SUCCINATE 50 MG TAB.SR.24H PO SCH (08:09)
[2017-10-30] MEDS: FERROUS SULFATE 325 MG TABLET PO SCH ×2 (08:09→15:18)
[2017-10-30] MEDS: ASCORBIC ACID 500 MG TABLET PO SCH (08:10)
[2017-10-30] MEDS: MAGNESIUM OXIDE 400 MG TABLET PO SCH (08:10)
[2017-10-30] MEDS: CLOPIDOGREL BISULFATE 75 MG TABLET PO SCH (08:10)
[2017-10-30] MEDS: ZINC SULFATE 220 MG CAPSULE PO SCH (08:10)
[2017-10-30] MEDS: FUROSEMIDE 20 MG TABLET PO SCH (08:10)
[2017-10-30] MEDS: LOTEMAX 0.5% OU SCH (08:12)
[2017-10-30] MEDS: ENOXAPARIN SODIUM INJ 40 MG/0.4 ML DISP.SYRIN SUBCUT SCH (08:13)
[2017-10-30] MEDS: IPRATROPIUM/ALBUTEROL 0.5-2.5 MG/3 ML AMPUL NEB PRN (08:21)
[2017-10-30] MEDS: BUDESONIDE NEB 0.5 MG/2 ML AMPUL NEB SCH (08:21)
[2017-10-30] MEDS: NYSTATIN CREAM 15 GM TP SCH (08:21)
--- NOTE | 2017-10-30 10:22 | PDOC PROGRESS REPORT ---
Subjective Progress Note for:: 10/30/17 Subjective:: Feeling better but as usual having a hard time breathing through nose Reason For Visit: HEART FAILURE Physical Exam Vital Signs: Temp Pulse Resp BP Pulse Ox 97.8 F 70 16 137/45 H 100 10/30/17 08:22 10/30/17 08:22 10/30/17 08:22 10/30/17 08:22 10/30/17 08:22 Intake & Output 10/29/17 10/30/17 10/31/17 06:59 06:59 06:59 Intake Total 884 862 Output Total 1050 1100 Balance -166 -238 Weight 94 kg 88.3 kg General appearance: PRESENT: no acute distress, cooperative, disheveled, obese Head exam: PRESENT: atraumatic, normocephalic Eye exam: PRESENT: conjunctiva pale, EOMI. ABSENT: nystagmus, periorbital swelling, scleral icterus Mouth exam: PRESENT: dry mucosa, neck supple, tongue midline Neck exam: ABSENT: carotid bruit, JVD, lymphadenopathy, thyromegaly, tracheal deviation, tracheostomy Respiratory exam: PRESENT: decreased breath sounds, prolonged expiratory phas, rhonchi, unlabored. ABSENT: stridor, tachypnea Cardiovascular exam: PRESENT: RRR, +S1, +S2 Pulses: PRESENT: normal radial pulses GI/Abdominal exam: PRESENT: normal bowel sounds, soft Extremities exam: ABSENT: calf tenderness, clubbing, joint swelling Musculoskeletal exam: ABSENT: deformity, dislocation Neurological exam: PRESENT: awake Psychiatric exam: PRESENT: flat affect Skin exam: PRESENT: dry, warm Results Laboratory Results: 10/29/17 05:13 10/29/17 05:13 10/21/17 10/21/17 10/21/17 10:09 15:49 21:38 CK-MB (CK-2) 0.75 0.69 0.69 Troponin I 0.414 0.394 0.410 NT-Pro-B Natriuret Pep 10/22/17 10/23/17 10/24/17 05:17 05:10 07:30 CK-MB (CK-2) Troponin I 0.094 NT-Pro-B Natriuret Pep 2090 H 914 H Impressions: Head CT 10/20/17 22:37 IMPRESSION: 1. No acute intracranial abnormality by CT criteria. This exam was performed according to our departmental dose-optimization program, which includes automated exposure control, adjustment of the mA and/or kV according to patient size and/or use of iterative reconstruction technique. Chest CT 10/20/17 22:38 IMPRESSION: 1. Cardiomegaly with groundglass and interstitial opacities concerning for pulmonary edema with bibasilar compressive atelectasis. Underlying pneumonic process could produce a similar appearance. Continued radiographic follow-up recommended. 2. Small bilateral pleural effusions. 3. Mildly prominent right paratracheal lymph nodes are likely reactive or congestive. This exam was performed according to our departmental dose-optimization program, which includes automated exposure control, adjustment of the mA and/or kV according to patient size and/or use of iterative reconstruction technique. Chest X-Ray 10/26/17 00:00 IMPRESSION: Persistent left retrocardiac consolidation atelectasis versus pneumonia Modified Barium Swallow 10/26/17 00:00 IMPRESSION: FLASH LARYNGEAL PENETRATION WITHOUT ASPIRATION.PLEASE SEE SPEECH PATHOLOGIST REPORT FOR OTHER FINDINGS AND RECOMMENDATIONS. Facial Bones CT 10/29/17 00:00 IMPRESSION: NO ACUTE FINDINGS. Assessment & Plan - Diagnosis (1) Aspiration into respiratory tract Is this a current diagnosis for this admission?: Yes Plan: See report modified barium swallow (2) Anxiety Is this a current diagnosis for this admission?: Yes (3) Hypercarbia Is this a current diagnosis for this admission?: Yes Plan: Hypoventilation due to immobility plus minus narcotics (4) Recurrent pneumonia Is this a current diagnosis for this admission?: Yes Plan: Probably multifactorial however modified barium swallow demonstrates aspiration with specific recommendations from speech pathology (5) COPD (chronic obstructive pulmonary disease) Qualifiers: COPD type: unspecified COPD Qualified Code(s): J44.9 - Chronic obstructive pulmonary disease, unspecified Is this a current diagnosis for this admission?: Yes Plan: Improving
[2017-10-30 10:49] LABS: HEMATOCRIT 27.8 % (36.0-47.0); HEMOGLOBIN 9.1 g/dL (12.0-15.5); MEAN CORPUSCULAR HEMOGLOBIN 27.8 pg (27.0-33.4); MEAN CORPUSCULAR HGB CONC 32.6 g/dL (32.0-36.0); MEAN CORPUSCULAR VOLUME 85 fl (80-97); PLATELET COUNT 227 10^3/uL (150-450); RED BLOOD COUNT 3.26 10^6/uL (3.72-5.28); RED CELL DISTRIBUTION WIDTH 14.4 % (11.5-14.0); WHITE BLOOD COUNT 8.6 10^3/uL (4.0-10.5)
[2017-10-30 11:13] LABS: ANION GAP 13 (5-19); BLOOD UREA NITROGEN 24 mg/dL (7-20); CALCIUM 9.5 mg/dL (8.4-10.2); CARBON DIOXIDE 32 mmol/L (22-30); CHLORIDE 97 mmol/L (98-107); GLUCOSE 179 mg/dL (75-110); POTASSIUM 4.3 mmol/L (3.6-5.0); SODIUM 141.8 mmol/L (137-145)
--- NOTE | 2017-10-30 12:03 | PDOC PROGRESS REPORT ---
Subjective Progress Note for:: 10/29/17 Subjective:: Patient awaiting for more physical therapy. Physical therapy did come and start her. It was noted by them that patient will be unable to walk. Currently she is denying any chest pain, palpitations, syncope, near syncope. Currently patient is maintaining sinus rhythm. Patient does complain of being fatigued and tired. She is noted to be laying comfortably in bed. Patient at bedside. Patient currently maintaining sinus rhythm. August 2017 she had aortic balloon valvuloplasty along with a heart catheterization which showed mostly nonobstructive disease in large coronary arteries. Reason For Visit: HEART FAILURE Physical Exam Vital Signs: Temp Pulse Resp BP Pulse Ox 98.1 F 72 16 129/43 H 96 10/29/17 16:25 10/29/17 16:25 10/29/17 16:25 10/29/17 16:25 10/29/17 16:40 Intake & Output 10/28/17 10/29/17 10/30/17 06:59 06:59 06:59 Intake Total 1206 884 635 Output Total 725 1050 450 Balance 481 -166 185 Weight 89.7 kg 94 kg Exam: GENERAL: well-nourished and in no acute distress. Alert and oriented x3 HEAD: Atraumatic, normocephalic. EYES: Pupils equal round and reactive to light, extraocular movements intact, sclera anicteric, conjunctiva are normal. ENT: TMs normal, nares patent, oropharynx clear without exudates. Moist mucous membranes. No oral ulcerations or bleeding gums noted NECK: supple without lymphadenopathy. Trachea is central. No cervical or axillary lymphadenopathy noted. Carotids are 2+, JVD WNL LUNGS: Respiration seems nonlabored, no significant accessory muscle action noted. Few bibasilar crackles are noted. No wheezes rales or rhonchi noted. No significant dullness noted on percussion. CHEST: Palpation of the chest wall shows no significant chest wall tenderness. 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 ABDOMEN: Soft, no significant tenderness appreciated, normoactive bowel sounds. No guarding, no rebound. No rigidity noted . No masses appreciated. EXTREMITIES: Pedal pulses are 1-2+, no calf tenderness noted. No clubbing or cyanosis. 1+ pedal edema noted NEUROLOGICAL: Focused neurological exam showed no significant neurologic deficit. Normal speech, no focal weakness appreciated. Patient just generally very weak. PSYCH: Normal mood, normal affect. Judgment and insight within normal limits. SKIN: No significant ecchymosis, skin is noted to be warm. MUSCULOSKELETAL EXAM: No significant acute joint swelling noted. Results Laboratory Results: 10/29/17 05:13 10/29/17 05:13 10/29/17 10/29/17 05:13 05:13 WBC 7.6 RBC 3.12 L Hgb 8.8 L Hct 26.5 L MCV 85 MCH 28.1 MCHC 33.1 RDW 14.2 H Plt Count 209 Seg Neutrophils % 62.9 Lymphocytes % 23.4 Monocytes % 8.8 Eosinophils % 3.8 Basophils % 1.1 Absolute Neutrophils 4.8 Absolute Lymphocytes 1.8 Absolute Monocytes 0.7 Absolute Eosinophils 0.3 Absolute Basophils 0.1 Sodium 139.3 Potassium 4.5 Chloride 97 L Carbon Dioxide 35 H Anion Gap 7 BUN 24 H Creatinine 0.63 Est GFR ( Amer) > 60 Est GFR (Non-Af Amer) > 60 Glucose 112 H Calcium 9.6 Magnesium 2.3 10/21/17 10/21/17 10/21/17 10:09 15:49 21:38 CK-MB (CK-2) 0.75 0.69 0.69 Troponin I 0.414 0.394 0.410 NT-Pro-B Natriuret Pep 10/22/17 10/23/17 10/24/17 05:17 05:10 07:30 CK-MB (CK-2) Troponin I 0.094 NT-Pro-B Natriuret Pep 2090 H 914 H EKG Comments: Telemetry shows sinus rhythm with bundle branch block pattern. Impressions: Head CT 10/20/17 22:37 IMPRESSION: 1. No acute intracranial abnormality by CT criteria. This exam was performed according to our departmental dose-optimization program, which includes automated exposure control, adjustment of the mA and/or kV according to patient size and/or use of iterative reconstruction technique. Chest CT 10/20/17 22:38 IMPRESSION: 1. Cardiomegaly with groundglass and interstitial opacities concerning for pulmonary edema with bibasilar compressive atelectasis. Underlying pneumonic process could produce a similar appearance. Continued radiographic follow-up recommended. 2. Small bilateral pleural effusions. 3. Mildly prominent right paratracheal lymph nodes are likely reactive or congestive. This exam was performed according to our departmental dose-optimization program, which includes automated exposure control, adjustment of the mA and/or kV according to patient size and/or use of iterative reconstruction technique. Chest X-Ray 10/26/17 00:00 IMPRESSION: Persistent left retrocardiac consolidation atelectasis versus pneumonia Modified Barium Swallow 10/26/17 00:00 IMPRESSION: FLASH LARYNGEAL PENETRATION WITHOUT ASPIRATION.PLEASE SEE SPEECH PATHOLOGIST REPORT FOR OTHER FINDINGS AND RECOMMENDATIONS. Facial Bones CT 10/29/17 00:00 IMPRESSION: NO ACUTE FINDINGS. Assessment & Plan - Diagnosis (1) Bradycardia Is this a current diagnosis for this admission?: Yes (2) Acute exacerbation of CHF (congestive heart failure) Qualifiers: Heart failure type: diastolic Qualified Code(s): I50.33 - Acute on chronic diastolic (congestive) heart failure Is this a current diagnosis for this admission?: Yes (3) COPD (chronic obstructive pulmonary disease) Qualifiers: COPD type: unspecified COPD Qualified Code(s): J44.9 - Chronic obstructive pulmonary disease, unspecified Is this a current diagnosis for this admission?: Yes (4) Failure to thrive Qualifiers: Failure to thrive age range: in adult Qualified Code(s): R62.7 - Adult failure to thrive Is this a current diagnosis for this admission?: Yes (5) Hyperlipidemia Qualifiers: Hyperlipidemia type: unspecified Qualified Code(s): E78.5 - Hyperlipidemia , unspecified Is this a current diagnosis for this admission?: Yes (6) Hypertension Qualifiers: Hypertension type: essential hypertension Qualified Code(s): I10 - Essential (primary) hypertension Is this a current diagnosis for this admission?: Yes (7) Weakness Is this a current diagnosis for this admission?: Yes (8) A-fib Qualifiers: Atrial fibrillation type: paroxysmal Qualified Code(s): I48.0 - Paroxysmal atrial fibrillation Is this a current diagnosis for this admission?: Yes (9) NSTEMI (non-ST elevated myocardial infarction) Is this a current diagnosis for this admission?: Yes (10) Valvular heart disease Is this a current diagnosis for this admission?: Yes - Notes Notes: Bradycardia: Improved. Digoxin was stopped previously. Patient is now on the lower dose of beta-belkis, patient without angina and seems overall improved. Acute exacerbation of CHF: Diastolic acute on chronic. Patient noted to have significant LVH. She also has valvular heart disease. At this point recommend continuation of diuretic therapy. Digoxin discontinued. Continue with reduced dose of metoprolol succinate to 50 mg p.o. daily. Continue with salt and fluid restriction. Patient seems compensated volume wilkinson. COPD: Currently stable. Failure to thrive: Patient did not have any meaningful physical activity since August. Patient is trying to work with the physical therapy but very weak and tired. Dyslipidemia: Continue statin therapy. Hypertension: Currently blood pressure under reasonable control. Continue with current regimen. Generalized weakness: Patient will benefit from physical therapy. This is being instituted. Atrial fibrillation: Paroxysmal. Patient has been maintaining sinus rhythm. She would be a candidate for chronic anticoagulation, however patient has marked general debility, currently also on dual antiplatelet therapy. Will leave any decision regarding chronic anticoagulation to patient's primary care nuisance animal damage control agent and manager of environmental services at this point. Patient does have an appointment on November 09 with them. Please note that patient is also quite anemic. There are some contraindications. Patient noted to have elevated has- bled score. Non-STEMI: Type II related to supply demand mismatch. Patient had recent heart catheterization just a few months ago. No plans for any ischemia evaluation at this point. Valvular heart disease: Patient has history of significant valvular heart disease and is recently had balloon valvuloplasty of the aortic valve. Recent 2D echocardiogram obtained this admission suggest moderate aortic stenosis. Patient also noted to have mild to moderate mitral regurgitation. At this point continue close observation. Feel that there can be repeated need a balloon valvuloplasty. Patient should follow-up with mineral engineer on discharge. Patient has multiple significant comorbid diagnosis, prognosis is likely to be on the guarded side. - Time Time with patient: Greater than 35 minutes - Discussed need for follow-up with mineral engineer at [facility] or their satellite office here in [place]. Discussed that need for re-intervention is likely to arise on the aortic valve. Patient and her does understand this. Medications reviewed and adjusted accordingly: Yes
--- NOTE | 2017-10-30 12:12 | PDOC PROGRESS REPORT ---
Subjective Progress Note for:: 10/30/17 Subjective:: Patient seen with her at bedside. not real happy with progression with physical therapy here. He tells me that patient is likely to be discharged to a rehab center today. Patient still has the Turner catheter in. Telemetry strips reviewed shows sinus rhythm. No further bradycardia noted since changes medications were performed few days ago. Patient is very fatigued and tired but denying any chest pain. She is noted to be laying comfortably in bed. Patient has been at bedside. Patient currently maintaining sinus rhythm. She is trying to work with the physical therapy. Patient previous cardiac evaluations are reviewed. Most recently in August 2017 she had aortic balloon valvuloplasty along with a heart catheterization which showed mostly nonobstructive disease in large coronary arteries.. Reason For Visit: HEART FAILURE Physical Exam Vital Signs: Temp Pulse Resp BP Pulse Ox 97.8 F 70 16 137/45 H 100 10/30/17 08:22 10/30/17 08:22 10/30/17 08:22 10/30/17 08:22 10/30/17 08:22 Intake & Output 10/29/17 10/30/17 10/31/17 06:59 06:59 06:59 Intake Total 884 862 Output Total 1050 1100 Balance -166 -238 Weight 94 kg 88.3 kg Exam: GENERAL: well-nourished and in no acute distress. Alert and oriented x3 HEAD: Atraumatic, normocephalic. EYES: Pupils equal round and reactive to light, extraocular movements intact, sclera anicteric, conjunctiva are normal. ENT: TMs normal, nares patent, oropharynx clear without exudates. Moist mucous membranes. No oral ulcerations or bleeding gums noted NECK: supple without lymphadenopathy. Trachea is central. No cervical or axillary lymphadenopathy noted. Carotids are 2+, JVD WNL LUNGS: Respiration seems nonlabored, no significant accessory muscle action noted. Few bibasilar fine crackles are noted. No wheezes rales or rhonchi noted. No significant dullness noted on percussion. CHEST: Palpation of the chest wall shows no significant chest wall tenderness. HEART: [place] PASTE THINNER, No PSH, 3/6 DIYA aortic area, 1/6 jay systolic murmur mitral area , no rubs, no gallops. ABDOMEN: Soft, no significant tenderness appreciated, normoactive bowel sounds. No guarding, no rebound. No rigidity noted . No masses appreciated. EXTREMITIES: Pedal pulses are 1-2+, no calf tenderness noted. No clubbing or cyanosis. 1+ pedal edema noted NEUROLOGICAL: Focused neurological exam showed no significant neurologic deficit. Normal speech, no focal weakness appreciated. PSYCH: Normal mood, normal affect. Judgment and insight within normal limits. SKIN: No significant ecchymosis, skin is noted to be warm. MUSCULOSKELETAL EXAM: No significant acute joint swelling noted. Results Laboratory Results: 10/30/17 10:40 10/30/17 10:40 10/30/17 10/30/17 10:40 10:40 WBC 8.6 RBC 3.26 L Hgb 9.1 L Hct 27.8 L MCV 85 MCH 27.8 MCHC 32.6 RDW 14.4 H Plt Count 227 Sodium 141.8 Potassium 4.3 Chloride 97 L Carbon Dioxide 32 H Anion Gap 13 BUN 24 H Creatinine 0.83 Est GFR ( Amer) > 60 Est GFR (Non-Af Amer) > 60 Glucose 179 H Calcium 9.5 10/21/17 10/21/17 10/21/17 10:09 15:49 21:38 CK-MB (CK-2) 0.75 0.69 0.69 Troponin I 0.414 0.394 0.410 NT-Pro-B Natriuret Pep 10/22/17 10/23/17 10/24/17 05:17 05:10 07:30 CK-MB (CK-2) Troponin I 0.094 NT-Pro-B Natriuret Pep 2090 H 914 H EKG Comments: Telemetry strip shows sinus rhythm. No significant bradycardia noted. Bundle branch block noted. Impressions: Head CT 10/20/17 22:37 IMPRESSION: 1. No acute intracranial abnormality by CT criteria. This exam was performed according to our departmental dose-optimization program, which includes automated exposure control, adjustment of the mA and/or kV according to patient size and/or use of iterative reconstruction technique. Chest CT 10/20/17 22:38 IMPRESSION: 1. Cardiomegaly with groundglass and interstitial opacities concerning for pulmonary edema with bibasilar compressive atelectasis. Underlying pneumonic process could produce a similar appearance. Continued radiographic follow-up recommended. 2. Small bilateral pleural effusions. 3. Mildly prominent right paratracheal lymph nodes are likely reactive or congestive. This exam was performed according to our departmental dose-optimization program, which includes automated exposure control, adjustment of the mA and/or kV according to patient size and/or use of iterative reconstruction technique. Chest X-Ray 10/26/17 00:00 IMPRESSION: Persistent left retrocardiac consolidation atelectasis versus pneumonia Modified Barium Swallow 10/26/17 00:00 IMPRESSION: FLASH LARYNGEAL PENETRATION WITHOUT ASPIRATION.PLEASE SEE SPEECH PATHOLOGIST REPORT FOR OTHER FINDINGS AND RECOMMENDATIONS. Facial Bones CT 10/29/17 00:00 IMPRESSION: NO ACUTE FINDINGS. Assessment & Plan - Diagnosis (1) Acute exacerbation of CHF (congestive heart failure) Qualifiers: Heart failure type: diastolic Qualified Code(s): I50.33 - Acute on chronic diastolic (congestive) heart failure Is this a current diagnosis for this admission?: Yes (2) COPD (chronic obstructive pulmonary disease) Qualifiers: COPD type: unspecified COPD Qualified Code(s): J44.9 - Chronic obstructive pulmonary disease, unspecified Is this a current diagnosis for this admission?: Yes (3) Failure to thrive Qualifiers: Failure to thrive age range: in adult Qualified Code(s): R62.7 - Adult failure to thrive Is this a current diagnosis for this admission?: Yes (4) Hyperlipidemia Qualifiers: Hyperlipidemia type: unspecified Qualified Code(s): E78.5 - Hyperlipidemia , unspecified Is this a current diagnosis for this admission?: Yes (5) Hypertension Qualifiers: Hypertension type: essential hypertension Qualified Code(s): I10 - Essential (primary) hypertension Is this a current diagnosis for this admission?: Yes (6) Weakness Is this a current diagnosis for this admission?: Yes (7) A-fib Qualifiers: Atrial fibrillation type: paroxysmal Qualified Code(s): I48.0 - Paroxysmal atrial fibrillation Is this a current diagnosis for this admission?: Yes (8) NSTEMI (non-ST elevated myocardial infarction) Is this a current diagnosis for this admission?: Yes (9) Valvular heart disease Is this a current diagnosis for this admission?: Yes - Notes Notes: Bradycardia: Resolved. Currently on metoprolol succinate 50 mg p.o. daily. Digoxin was stopped previously. Acute exacerbation of CHF: Diastolic acute on chronic. Patient noted to have significant LVH. She also has valvular heart disease. At this point recommend continuation of diuretic therapy. Patient seems compensated clinically. Patient just very debilitated and weak.. Continue with salt and fluid restriction. COPD: Currently stable. Failure to thrive: Patient did not have any meaningful physical activity since August. Patient is trying to work with the physical therapy but very weak and tired. Dyslipidemia: Continue statin therapy. Hypertension: Currently blood pressure under reasonable control. Continue with current regimen. Generalized weakness: Patient will benefit from physical therapy. This is being instituted. Atrial fibrillation: Paroxysmal. Patient has been maintaining sinus rhythm. She would be a candidate for chronic anticoagulation, however patient has marked general debility, currently also on dual antiplatelet therapy. Will leave any decision regarding chronic anticoagulation to patient's primary care radio director and passenger interline clerk at this point. Please note that patient is also quite anemic. There are some contraindications. Patient noted to have elevated has bled score. Non-STEMI: Type II related to supply demand mismatch. Patient had recent heart catheterization just a few months ago. No plans for any ischemia evaluation at this point. Valvular heart disease: Patient has history of significant valvular heart disease and is recently had balloon valvuloplasty of the aortic valve. Recent 2D echocardiogram obtained this admission suggest moderate aortic stenosis. Patient also noted to have mild to moderate mitral regurgitation. At this point continue close observation. Feel that there can be repeated need a balloon valvuloplasty. Patient should follow-up with bus analyst on discharge. Patient has multiple significant comorbid diagnosis, prognosis is likely to be on the guarded side. - Time Time with patient: Greater than 35 minutes - Patient has appointment set up with bus analyst from [facility] on November 09. Patient was encouraged to keep that. Patient also has a appointment set up with her primary care physician. Patient also advised to keep that. Patient has been on a stable cardiac regimen and has been stable from cardiac standpoint although patient has significant underlying cardiac issues. They are however stable. Will sign off. Please reconsult if needed. Medications reviewed and adjusted accordingly: Yes
[2017-10-30 13:32] VITALS: BP 138/45
[2017-10-30] MEDS: ALPRAZOLAM 0.5 MG TABLET PO SCH (13:34)
--- NOTE | 2017-10-30 13:50 | PDOC TRANSFER SUMMARY ---
General - Admit/Disc Date/PCP Admission Date/Primary Care Provider: 10/21/17 02:22 MAJOR WORKMAN MD Discharge Date: 10/30/17 - Discharge Diagnosis (1) Acute on chronic combined systolic and diastolic CHF (congestive heart failure) Is this a current diagnosis for this admission?: Yes (2) Acute on chronic respiratory failure with hypoxia and hypercapnia Is this a current diagnosis for this admission?: Yes (3) Aspiration pneumonia Is this a current diagnosis for this admission?: Yes (4) Chronic pain syndrome Is this a current diagnosis for this admission?: Yes (5) NSTEMI (non-ST elevated myocardial infarction) Is this a current diagnosis for this admission?: Yes (6) Stage I decubitus ulcer and pressure area Is this a current diagnosis for this admission?: Yes (7) Weakness Is this a current diagnosis for this admission?: Yes - Additional Information Resuscitation Status: Do Not Resuscitate Discharge Diet: Cardiac Discharge Activity: Activity As Tolerated Home Medications: Alprazolam 1 mg PO QHS 10/18/15 Alprazolam [Xanax 0.5 mg Tablet] 0.5 mg PO NOON 10/18/15 Amlodipine Besylate 5 mg PO QHS 10/18/15 Atorvastatin Calcium 20 mg PO QHS 10/18/15 Estropipate [Ogen] 1.5 mg PO MOWEFR 10/18/15 Furosemide [Lasix 20 mg Tablet] 20 mg PO Q2D 10/18/15 Insulin Aspart [Novolog Flexpen] 0 unit SUBCUT .SLD SCALE 10/18/15 Insulin Detemir [Levemir Flextouch] 12 unit SQ QHS 10/18/15 Losartan Potassium [Cozaar 100 mg Tablet] 100 mg PO QHS 10/18/15 Loteprednol Etabonate [Lotemax] 1 applic OU BID 10/18/15 Meclizine HCl 25 mg PO DAILYP PRN 10/18/15 Metoprolol Succinate [Toprol Xl 50 mg Tab.sr] 50 mg PO QAM 10/18/15 [place]-3 Acid Ethyl Esters [Lovaza 1 gm Capsule] 1 gm PO DAILY 10/18/15 Polyethylene Glycol 3350 [Miralax Powder 17 gm/Packet] 1 packet PO DAILY PRN 05/23 Zinc Sulfate [Zinc-220 Capsule] 220 mg PO BID 10/18/15 Ascorbic Acid [Vitamin C 500 mg Tablet] 500 mg PO DAILY 10/21/17 Calcium Carbonate/Vitamin D3 [Calcium 600 + Vit D Tablet] 1 tab PO DAILY Clopidogrel Bisulfate [Plavix 75 mg Tablet] 75 mg PO DAILY 10/21/17 Cranberry Fruit Concentrate [Cranberry] 450 mg PO DAILY 10/21/17 Fluticasone/Salmeterol [Advair HFA 115-21 mcg Inhaler] 2 puff IH Q12 10/21/17 Guaifenesin/Dextromethorphan [Mucinex Dm ER 600-30 mg Tablet] 1 tab PO BID 10/21 Levothyroxine Sodium [Synthroid 0.075 mg Tablet] 0.075 mg PO DAILY 10/21/17 Ondansetron HCl [Zofran 4 mg Tablet] 1 tab PO Q6HP PRN 10/21/17 Oxycodone HCl/Acetaminophen [Percocet 7.5-325 mg Tablet] 1 tab PO Q8 10/21/17 Ubidecarenone [Co Q-10] 200 mg PO DAILY 10/21/17 Ferrous Sulfate [Feosol 325 mg Tablet] 325 mg PO DAILY 30 Days tablet 10/30/17 Glucagon,Human Recombinant [Glucagen Inj 1 mg Vial] 1 mg IM PRN PRN vial Insulin Lispro [Humalog Insulin (Lispro) 100 unit/mL] 0 - 12 unit SUBCUT ACHSP PRN unit 10/30/17 Ipratropium/Albuterol Sulfate [Duoneb 3 ml Ampul] 3 ml NEB RTQ6HP PRN vial.neb 10/30/17 Lansoprazole [Prevacid 30 mg Odt Tablet] 30 mg PO Q6AM tab.rap. 10/30/17 Levofloxacin [Levaquin 750 mg Tablet] 750 mg PO DAILY@1400 1 Days tablet Nystatin [Mycostatin Cream 15 gm] 1 applic TP BID tube 10/30/17 History of Present Illness Admission Date/PCP: 10/21/17 02:22 MAJOR WORKMAN MD History of Present Illness: FARHEEN AGUILAR is a 82 year old female Hospital Course Hospital Course: 82-year-old female with a past medical history significant for systolic and diastolic congestive heart failure as well as chronic obstructive pulmonary disease. Recently she has had multiple hospitalization for respiratory issues including recurrent pneumonias. She was not admitted and treated for possible pneumonia and COPD exacerbation. The patient likely has some element of aspiration. She has now gotten her over this acute episode. Of note is that she was followed by Dr. Barajas of pulmonology and Dr. Ferrer of cardiology during this admission. She is weak and receiving physical therapy. However she is still profoundly weak. [facility]. Patient states that she is going to work hard to get her strength back at rehab. Discharge diagnoses/plan: (1) Acute on chronic respiratory failure with hypoxia and hypercapnia Is this a current diagnosis for this admission?: Yes Plan: This is resolved. She is much more alert today. She is stable on current regimen. Continue BiPAP at night if needed. (2) Acute on chronic combined systolic and diastolic CHF (congestive heart failure) Is this a current diagnosis for this admission?: Yes Plan: She has been transitioned to an oral regimen at this point. She does not appear to be acutely volume overloaded (3) Aspiration pneumonia Is this a current diagnosis for this admission?: Yes Plan: Continue Levaquin for 1 more day. Her barium swallow did not reveal any tali aspiration however she does have laryngeal penetration. This is day #6 of antibiotics treatment (4) Failure to thrive Is this a current diagnosis for this admission?: Yes Plan: The and patient at this point wish for patient to go to rehab. Patient states she wants to try. (5) COPD (chronic obstructive pulmonary disease) Is this a current diagnosis for this admission?: Yes Plan: She was been followed closely by Dr. Barajas. Continue current plan of care. She is stable (6) Stage I decubitus ulcer and pressure area Is this a current diagnosis for this admission?: Yes Plan: Continue local wound care (7) Opiate dependence, continuous Is this a current diagnosis for this admission?: Yes Plan: Continue current regimen. She appears to be quite comfortable (8) Chronic pain syndrome Is this a current diagnosis for this admission?: Yes (9) NSTEMI (non-ST elevated myocardial infarction) Is this a current diagnosis for this admission?: Yes Plan: Secondary to her congestive heart failure exacerbation. Patient was seen by Dr. Ferrer of cardiology and he thinks this is non-STEMI Type II related to supply demand mismatch and that patient had recent heart catheterization just a few months ago, so no plans for any ischemia evaluation at this point. (10) Valvular disease Is this a current diagnosis for this admission?: Yes (11) A Fib, paroxismal Is this a current diagnosis for this admission?: Yes Patient has been maintaining sinus rhythm. She was followed by Dr. Ferrer of cardiology who stated that she would be a candidate for chronic anticoagulation , however patient has marked general debility, currently also on antiplatelet therapy and would leave any decision regarding chronic anticoagulation to patient's primary care slip tender and pack operator at this point. Also, patient is also quite an Patient noted to have elevated has bled score. Physical Exam Vital Signs: Temp Pulse Resp BP Pulse Ox 97.8 F 70 16 137/45 H 100 10/30/17 08:22 10/30/17 08:22 10/30/17 08:22 10/30/17 08:22 10/30/17 08:22 Intake & Output 10/29/17 10/30/17 10/31/17 06:59 06:59 06:59 Intake Total 884 862 Output Total 1050 1100 Balance -166 -238 Weight 94 kg 88.3 kg General appearance: PRESENT: no acute distress, obese, well-developed, other - Chronically ill-appearing Head exam: PRESENT: atraumatic, normocephalic Mouth exam: PRESENT: moist, tongue midline Respiratory exam: PRESENT: decreased breath sounds - She is diminished in the lower bases bilaterally. This was an anterior exam in her lungs sound fairly clear Cardiovascular exam: PRESENT: RRR. ABSENT: diastolic murmur, rubs, systolic murmur Pulses: PRESENT: normal dorsalis pedis pul GI/Abdominal exam: PRESENT: normal bowel sounds, soft. ABSENT: distended, guarding, mass, organolmegaly, rebound, tenderness Rectal exam: PRESENT: deferred Extremities exam: PRESENT: full ROM. ABSENT: calf tenderness, clubbing, pedal edema Musculoskeletal exam: ABSENT: ambulatory Neurological exam: PRESENT: alert, awake, oriented to person, oriented to place , oriented to time, oriented to situation, other - She is profoundly weak Psychiatric exam: PRESENT: appropriate affect, other - She is quite tearful. ABSENT: homicidal ideation, suicidal ideation Skin exam: PRESENT: dry, intact, warm. ABSENT: cyanosis, rash Results Laboratory Results: 10/30/17 10:40 10/30/17 10:40 10/30/17 10/30/17 10:40 10:40 WBC 8.6 RBC 3.26 L Hgb 9.1 L Hct 27.8 L MCV 85 MCH 27.8 MCHC 32.6 RDW 14.4 H Plt Count 227 Sodium 141.8 Potassium 4.3 Chloride 97 L Carbon Dioxide 32 H Anion Gap 13 BUN 24 H Creatinine 0.83 Est GFR ( Amer) > 60 Est GFR (Non-Af Amer) > 60 Glucose 179 H Calcium 9.5 10/21/17 10/21/17 10/21/17 10:09 15:49 21:38 CK-MB (CK-2) 0.75 0.69 0.69 Troponin I 0.414 0.394 0.410 NT-Pro-B Natriuret Pep 10/22/17 10/23/17 10/24/17 05:17 05:10 07:30 CK-MB (CK-2) Troponin I 0.094 NT-Pro-B Natriuret Pep 2090 H 914 H Impressions: Head CT 10/20/17 22:37 IMPRESSION: 1. No acute intracranial abnormality by CT criteria. This exam was performed according to our departmental dose-optimization program, which includes automated exposure control, adjustment of the mA and/or kV according to patient size and/or use of iterative reconstruction technique. Chest CT 10/20/17 22:38 IMPRESSION: 1. Cardiomegaly with groundglass and interstitial opacities concerning for pulmonary edema with bibasilar compressive atelectasis. Underlying pneumonic process could produce a similar appearance. Continued radiographic follow-up recommended. 2. Small bilateral pleural effusions. 3. Mildly prominent right paratracheal lymph nodes are likely reactive or congestive. This exam was performed according to our departmental dose-optimization program, which includes automated exposure control, adjustment of the mA and/or kV according to patient size and/or use of iterative reconstruction technique. Chest X-Ray 10/26/17 00:00 IMPRESSION: Persistent left retrocardiac consolidation atelectasis versus pneumonia Modified Barium Swallow 10/26/17 00:00 IMPRESSION: FLASH LARYNGEAL PENETRATION WITHOUT ASPIRATION.PLEASE SEE SPEECH PATHOLOGIST REPORT FOR OTHER FINDINGS AND RECOMMENDATIONS. Facial Bones CT 10/29/17 00:00 IMPRESSION: NO ACUTE FINDINGS. Transfer Plan - Time Spent with Patient Time spent with patient: Greater than 30 Minutes Qualifiers - * PATIENT BEING DISCHARGED WITH ANY OF THE FOLLOWING DIAGNOSIS: No, NM NM Pt being discharged on Aspirin therapy?: No Reason(s) for not prescribing Aspirin therapy:: Drug allergy NM Pt being discharged on Statins?: Yes NM Pt discharged ACEI/ARBS?: Yes
[2017-10-30] MEDS: LEVOFLOXACIN 750 MG TABLET PO SCH (15:18)
--- NOTE | 2017-11-03 12:29 | Pulmonary Function Test ---
Pulmonary Function Test Date of Procedure:: 10/30/17 INDICATION:: Dyspnea Referring Provider: Director Online Marketing: Tristin Impression: After multiple attempts competent respected RT.The patient unable to generate flows that would meet ATS requirements consider repeating test later if/when patient becomes more stable
== END 2017-10-30 16:55 | DRG 280 ==
LOC: ER 21:09 → EH 10-21 02:22 → 3W 10-21 04:28
PROVIDERS: ADMIT Internal Medicine; ATTEND Internal Medicine
PROC: 3E0F73Z Introduction of Anti-inflammatory into Respiratory Tract, Via Natural or Artificial Opening (ICD-10-PCS; 2017-10-21)
PROC: 5A09557 Assistance with Respiratory Ventilation, Greater than 96 Consecutive Hours, Continuous Positive Airway Pressure (ICD-10-PCS; principal; 2017-10-23)
DX: I11.0 Hypertensive heart disease with heart failure (principal); J96.21 Acute and chronic respiratory failure with hypoxia; I21.A1 Myocardial infarction type 2; J96.22 Acute and chronic respiratory failure with hypercapnia; J69.0 Pneumonitis due to inhalation of food and vomit; J44.1 Chronic obstructive pulmonary disease with (acute) exacerbation; I38 Endocarditis, valve unspecified; N30.00 Acute cystitis without hematuria; Z66 Do not resuscitate; I50.43 Acute on chronic combined systolic (congestive) and diastolic (congestive) heart failure; G89.4 Chronic pain syndrome; L89.301 Pressure ulcer of unspecified buttock, stage 1; R62.7 Adult failure to thrive; I48.0 Paroxysmal atrial fibrillation; E78.00 Pure hypercholesterolemia, unspecified; E11.9 Type 2 diabetes mellitus without complications; E03.9 Hypothyroidism, unspecified; M19.90 Unspecified osteoarthritis, unspecified site; F32.9 Major depressive disorder, single episode, unspecified; F41.9 Anxiety disorder, unspecified; K59.00 Constipation, unspecified; G47.30 Sleep apnea, unspecified; I25.10 Atherosclerotic heart disease of native coronary artery without angina pectoris; K21.9 Gastro-esophageal reflux disease without esophagitis; I44.7 Left bundle-branch block, unspecified; I44.0 Atrioventricular block, first degree; I34.0 Nonrheumatic mitral (valve) insufficiency; M51.36 Other intervertebral disc degeneration, lumbar region; D64.9 Anemia, unspecified; L89.321 Pressure ulcer of left buttock, stage 1; L89.311 Pressure ulcer of right buttock, stage 1; I35.0 Nonrheumatic aortic (valve) stenosis; E66.9 Obesity, unspecified; Z68.35 Body mass index [BMI] 35.0-35.9, adult; I25.2 Old myocardial infarction; Z79.891 Long term (current) use of opiate analgesic; Z79.4 Long term (current) use of insulin; Z79.899 Other long term (current) drug therapy; Z95.5 Presence of coronary angioplasty implant and graft; Z90.49 Acquired absence of other specified parts of digestive tract; Z90.710 Acquired absence of both cervix and uterus; Z88.6 Allergy status to analgesic agent; Z88.3 Allergy status to other anti-infective agents; Z88.2 Allergy status to sulfonamides; Z83.6 Family history of other diseases of the respiratory system; Z80.9 Family history of malignant neoplasm, unspecified; Z82.49 Family history of ischemic heart disease and other diseases of the circulatory system; Z83.3 Family history of diabetes mellitus
CPT/HCPCS: 36415; 36600; 70450; 70486; 71045; 71046; 71250; 74230; 80048; 80053; 80162; 81001; 82272; 82550; 82553; 82607; 82728; 82746; 82803; 82962; 83540; 83550; 83735; 83880; 84100; 84443; 84484; 85025; 85027; 85045; 87040; 93005; 93010; 93306; 94010; 94640; 94660; 96374; 99285; G8978-GP; G8979-GP; G8987-GO; G8988-GO; J0696; J1650; J1815; J1940; J3490; J7620; S0119

== ENCOUNTER 2017-12-19 09:48 | Inpatient (IN) | payer MEDICARE ==
[2017-12-19] MEDS: NORMAL SALINE 1000 ML 1,000 ML IV PRN ×2 (00:57→10:35)
[2017-12-19] MEDS ORDERED: MIDAZOLAM 2 MG/2 ML INJ ONE (10:01)
[2017-12-19] MEDS ORDERED: NOREPINEPHRINE BITARTRATE INJ/PF 4 MG/4 ML SDV IV ONE (10:09)
[2017-12-19] MEDS ORDERED: NORMAL SALINE 1000 ML 1,000 ML IV ONE (10:22)
[2017-12-19] MEDS ORDERED: PIPERACILLIN/TAZOBACTAM 4.5 GM VIAL IV ONE (10:32)
[2017-12-19] MEDS ORDERED: ETOMIDATE INJ/PF 20 MG/10 ML SDV IV ONE ×2 (10:35→12:49)
[2017-12-19] MEDS ORDERED: ATROPINE SULFATE INJ 1 MG/1 ML VIAL SUBCUT ONE (10:41)
[2017-12-19 10:42] LABS: VENOUS BLOOD BASE EXCESS -1.8 mmol/L; VENOUS BLOOD HCO3 28.4 mmol/L (20-32)
[2017-12-19 10:44] LABS: ABSOLUTE BASOPHILS # (AUTO) 0.1 10^3/uL (0.0-0.2); ABSOLUTE EOSINOPHILS # (AUTO) 0.2 10^3/uL (0.0-0.6); ABSOLUTE LYMPHOCYTES (AUTO) 1.2 10^3/uL (0.5-4.7); ABSOLUTE MONOCYTES (AUTO) 0.3 10^3/uL (0.1-1.4); ABSOLUTE NEUT (AUTO) 7.9 10^3/uL (1.7-8.2); BASOPHILS % (AUTO) 0.7 % (0-2); EOSINOPHILS % (AUTO) 2.2 % (0-6); HEMATOCRIT 30.8 % (36.0-47.0); HEMOGLOBIN 9.9 g/dL (12.0-15.5); LYMPHOCYTES % (AUTO) 12.9 % (13-45); MEAN CORPUSCULAR HEMOGLOBIN 28.4 pg (27.0-33.4); MEAN CORPUSCULAR VOLUME 89 fl (80-97); MONOCYTES % (AUTO) 2.6 % (3-13); PLATELET COUNT 241 10^3/uL (150-450); RED BLOOD COUNT 3.47 10^6/uL (3.72-5.28); RED CELL DISTRIBUTION WIDTH 15.7 % (11.5-14.0); SEGMENTED NEUTROPHILS % (AUTO) 81.6 % (42-78); TOTAL CELLS COUNTED % (AUTO) 100 %; WHITE BLOOD COUNT 9.6 10^3/uL (4.0-10.5)
[2017-12-19 10:45] LABS: VENOUS BLOOD PCO2 82.7 mmHg (35-63); VENOUS BLOOD PH 7.15 (7.30-7.42)
[2017-12-19 10:47] LABS: INTERNATIONAL RATION (INR) 1.15; PROTHROMBIN TIME 15.3 SEC (11.4-15.4)
--- NOTE | 2017-12-19 10:55 | RADIOLOGY REPORT (SQ) ---
EXAM DESCRIPTION: CHEST SINGLE VIEW COMPLETED DATE/TIME: 12/19/2017 10:45 am REASON FOR STUDY: Respiratory Distress COMPARISON: 10/26/2017 EXAM PARAMETERS: NUMBER OF VIEWS: One view TECHNIQUE: Single frontal radiograph of the chest. RADIATION DOSE: N/A LIMITATIONS: None. FINDINGS: TEMPORARY SUPPORT DEVICES:ETT in expected location. NG tube courses below the lisa-diaphr agm in to the stomach. Central venous access catheter tip is in expected location. LUNGS AND PLEURA: Diffuse parenchymal opacities in the right lung. Small bilateral pleural effusions. No masses. No pneumothorax. MEDIASTINUM AND HILAR STRUCTURES: No masses. Contour normal. HEART AND VASCULAR STRUCTURES: Heart enlarged. Mild vascular congestion. Vascular congestion. Aorta normal for age. BONES: No acute findings. OTHER: No other significant finding. IMPRESSION: Asymmetric pulmonary edema versus pneumonia. Vascular congestion. SUPPORT DEVICE(S) IN EXPECTED LOCATIONS. TECHNICAL DOCUMENTATION: JOB ID: [id number] [employer]- All Rights Reserved Reading location - IP/workstation name: [email or web address]
[2017-12-19 10:59] LABS: ALANINE AMINOTRANSFERASE 21 U/L (9-52); ALKALINE PHOSPHATASE 97 U/L (38-126); ANION GAP 18 (5-19); ASPARTATE AMINO TRANSFERASE 50 U/L (14-36); BILIRUBIN,DIRECT 0.4 mg/dL (0.0-0.4); BILIRUBIN,TOTAL 0.5 mg/dL (0.2-1.3); BLOOD UREA NITROGEN 27 mg/dL (7-20); CALCIUM 9.8 mg/dL (8.4-10.2); CARBON DIOXIDE 28 mmol/L (22-30); CHLORIDE 98 mmol/L (98-107); GLUCOSE 314 mg/dL (75-110); LIPASE 58.2 U/L (23-300); POTASSIUM 5.3 mmol/L (3.6-5.0); SODIUM 143.8 mmol/L (137-145); TOTAL PROTEIN 7.9 g/dL (6.3-8.2)
[2017-12-19] MEDS ORDERED: FUROSEMIDE INJ/PF 40 MG/4 ML SDV IV ONE ×2 (11:00→15:45)
[2017-12-19] MEDS ORDERED: MIDAZOLAM HCL 50 MG/100 ML RTUINJ IV PRN ×2 (11:12→14:25)
--- NOTE | 2017-12-19 12:16 | RADIOLOGY REPORT (SQ) ---
EXAM DESCRIPTION: CT HEAD WITHOUT COMPLETED DATE/TIME: 12/19/2017 12:06 pm REASON FOR STUDY: unresponsive COMPARISON: None. TECHNIQUE: Axial images acquired through the brain without intravenous contrast. Images reviewed wi th bone, brain and subdural windows. Additional sagittal and coronal reconstructions were generated. Images stored on PACS. All CT scanners at this facility use dose modulation, iterative reconstruction, and/or weight based d osing when appropriate to reduce radiation dose to as low as reasonably achievable (ALARA). [facility]: Dose Right [facility]: CareDose [facility]: Dose Right [facility]: Teradose 4D [facility]: [employer] RADIATION DOSE: CT Rad equipment meets quality standard of care and radiation dose reduction techniq ues were employed. CTDIvol: 53.2 mGy. DLP: 991 mGy-cm.mGy. LIMITATIONS: None. FINDINGS: VENTRICLES: Prominent. CEREBRUM: No masses. No hemorrhage. No midline shift. Areas of low density in the white matter mos t likely due to chronic micro-vascular ischemic change. No evidence for acute infarction. CEREBELLUM: No masses. No hemorrhage. No alteration of density. No evidence for acute infarction. EXTRAAXIAL SPACES: Age-related involutional change. No fluid collections. No masses. ORBITS AND GLOBE: No intra- or extraconal masses. Normal contour of globe without masses. CALVARIUM: No fracture. PARANASAL SINUSES: No fluid or mucosal thickening. SOFT TISSUES: No mass or hematoma. OTHER: No other significant finding. IMPRESSION: CHRONIC CHANGES OF ATROPHY AND MICROVASCULAR ISCHEMIA. NO ACUTE PROCESS. EVIDENCE OF ACUTE STROKE: NO. TECHNICAL DOCUMENTATION: JOB ID: [id number] Quality ID # [id number]: Final reports with documentation of one or more dose reduction techniques (e.g., Au tomated exposure control, adjustment of the mA and/or kV according to patient size, use of iterative reconstruction technique) 2010 [employer]- All Rights Reserved Reading location - IP/workstation name: [email or web address]
--- NOTE | 2017-12-19 12:34 | ER Document Report ---
ED General - General Chief Complaint: Unresponsive Stated Complaint: DIFFICULTY BREATHING Time Seen by Provider: 12/19/17 10:31 TRAVEL OUTSIDE OF THE [place] IN LAST 30 DAYS: No - HPI Patient complains to provider of: Difficulty breathing unresponsive Notes: Patient coming in today for decreased responsiveness and difficulty breathing. According to the patient short of breath the last few days worse today and became unresponsive patient earlier this morning was having some nausea vomiting patient does have a history of CAD valve replacement CHF COPD. Patient upon arrival to the the ER via EMS was on a nonrebreather. Patient had a gag reflex GCS of 3. Decision was made to intubate the patient. According EMS patient was a full code. - Related Data Allergies/Adverse Reactions: aspirin [Aspirin] Allergy (Verified 10/18/15 14:53) codeine Allergy (Verified 10/21/17 08:57) erythromycin base [Erythromycin Base] Allergy (Verified 10/18/15 14:53) ibuprofen [From Motrin] Allergy (Verified 10/21/17 08:57) morphine [Morphine] Allergy (Verified 10/18/15 14:53) Sulfa (Sulfonamide Antibiotics) Allergy (Verified 10/18/15 14:53) Past Medical History - Social History Smoking Status: Unknown if Ever Smoked Family History: COPD, Hypertension, Malignancy Patient has suicidal ideation: No Patient has homicidal ideation: No - Past Medical History Cardiac Medical History: Reports: Hx Atrial Fibrillation, Hx Heart Attack - non- stemi, Hx Hypercholesterolemia, Hx Hypertension Pulmonary Medical History: Reports: Hx COPD, Hx Pneumonia - Recurrent Endocrine Medical History: Reports: Hx Diabetes Mellitus Type 2, Hx Hypothyroidism Renal/ Medical History: Denies: Hx Peritoneal Dialysis Musculoskeletal Medical History: Reports Hx Arthritis Psychiatric Medical History: Reports: Hx Depression - anxiety Traumatic Medical History: Denies: Hx Gunshot Wound, Hx Traumatic Brain Injury Infectious Medical History: Denies: Hx C-Diff Past Surgical History: Reports: Hx Cholecystectomy, Hx Coronary Stent, Hx Hysterectomy, Hx Neurologic Surgery - Neck 2010 - Immunizations Hx Diphtheria, Pertussis, Tetanus Vaccination: Yes Hx Pneumococcal Vaccination: 07/09/10 Review of Systems - Review of Systems -: Yes ROS unobtainable due to patient's medical condition Physical Exam - Vital signs Vitals: Resp 30 H 12/19/17 09:51 Interpretation: Hypotensive, Hypoxic - General General appearance: Unresponsive In distress: Severe - HEENT Head: Normocephalic, Atraumatic Pupils: Fixed Pharynx: Normal Neck: Normal - Respiratory Respiratory status: Respiratory distress - Is life, Tachypnea Breath sounds: Rhonchi, Wheezing Chest palpation: Normal - Cardiovascular Rhythm: Regular Heart sounds: Normal auscultation Murmur: No - Abdominal Inspection: Normal, Obese - Mottled Distension: No distension Bowel sounds: Normal Tenderness: Nontender Organomegaly: No organomegaly - Back Back: Normal, Nontender - Extremities General upper extremity: Normal inspection, Nontender, Normal color, Normal temperature General lower extremity: Normal inspection, Nontender. No: Normal color - Mottled - Neurological Neuro grossly intact: Yes [place] Coma Scale Eye Opening: None [place] Coma Scale Verbal: None [place] Coma Scale Motor: None [place] Coma Scale Total: 3 - Skin Skin Temperature: Warm Skin Moisture: Dry Skin Color: Normal Course - Re-evaluation Re-evalutation: 12/19/17 15:47 Patient coming in respiratory distress. Patient with a GCS of 3 patient was intubated central line placed due to lack of vascular access. Difficult time obtaining blood pressure therefore patient was prepped likely to start on levo fed. Upon obtaining a blood pressure systolics in the 100s. Chest x-ray and physical examination consistent with CHF exacerbation lactic acid 5 hydration was given to the patient. I am concerned patient's history nausea vomiting she may have aspirated therefore Zosyn was started along with vancomycin. ABG shows acidosis along with hypercapnia. Laboratory studies were adjusted and patient was also rechecked with an ABG showing improvement. Patient case was discussed with hospitalist patient will be admitted to the ICU - Vital Signs Vital signs: Temp Pulse Resp BP Pulse Ox 96 14 142/54 H 99 12/19/17 09:55 12/19/17 13:51 12/19/17 13:51 12/19/17 14:35 - Laboratory Result Diagrams: 12/19/17 09:59 12/19/17 09:59 Laboratory results interpreted by me: 12/19/17 12/19/17 12/19/17 09:59 09:59 09:59 RBC 3.47 L Hgb 9.9 L Hct 30.8 L RDW 15.7 H Seg Neutrophils % 81.6 H Lymphocytes % 12.9 L Monocytes % 2.6 L VBG pH VBG pCO2 Potassium 5.3 H BUN 27 H Est GFR ( Amer) 58 L Est GFR (Non-Af Amer) 48 L Glucose 314 H Lactic Acid AST 50 H NT-Pro-B Natriuret Pep 1310 H Urine Protein Ur Leukocyte Esterase 12/19/17 12/19/17 12/19/17 10:26 10:26 12:15 RBC Hgb Hct RDW Seg Neutrophils % Lymphocytes % Monocytes % VBG pH 7.15 L* VBG pCO2 82.7 H* Potassium BUN Est GFR ( Amer) Est GFR (Non-Af Amer) Glucose Lactic Acid 5.4 H AST NT-Pro-B Natriuret Pep Urine Protein 30 H Ur Leukocyte Esterase TRACE H Procedures - Central Line Right Internal jugular Central line pre-insertion: Sterile PPE donned, Chloraprep applied, Sterile drapes applied Central line lumen type: Triple Anesthetic type: 1% Lidocaine mL's of anesthesia: 1 Ultrasound guided: Yes CM at insertion site: 20 Line secured with sutures: Yes Central line post-insertion: Blood return from lumens, Biopatch applied, Sutured , Sterile dressing applied, Position confirmed w/ CXR Number of attempts: 1 Complications: No - Intubation Orotracheal Airway evaluation: Loose teeth Mallampati Classification: Class 2 Intubation method: Orotracheal Blade type: Mike Blade size: 3 ETT size: 8.0 ETT secured at: Teeth ETT secured at (cm): 21 Breath Sounds after Intubation: Equal End tidal CO2 confirmed: Yes Critical Care Note - Critical Care Note Total time excluding time spent on procedures (mins): 60 Comments: Multiple evaluation patient unresponsive respiratory failure requiring intubation and central line placement Discharge - Discharge Clinical Impression: Diabetes 1.5, managed as type 2, Valvular heart disease, Full code status Pneumonia Qualifiers: Pneumonia type: due to unspecified organism Laterality: unspecified laterality Lung location: unspecified part of lung Qualified Code(s): J18.9 - Pneumonia, unspecified organism Sepsis Qualifiers: Sepsis type: sepsis due to unspecified organism Qualified Code(s): A41.9 - Sepsis, unspecified organism CHF exacerbation Qualifiers: Heart failure type: unspecified Qualified Code(s): I50.9 - Heart failure, unspecified Condition: Good Disposition: ADMITTED INPATIENT [facility] ICU
[2017-12-19 12:44] LABS: APPEARANCE,URINE CLEAR; BILIRUBIN,URINE NEGATIVE (NEGATIVE); COLOR,URINE STRAW; GLUCOSE, URINE NEGATIVE (NEGATIVE); KETONES,URINE NEGATIVE (NEGATIVE); LEUKOCYTE ESTERASE,URINE TRACE (NEGATIVE); NITRITE,URINE NEGATIVE (NEGATIVE); PROTEIN,URINE 30 mg/dL (NEGATIVE); URINE SPECIFIC GRAVITY 1.006; UROBILINOGEN,URINE NEGATIVE mg/dL (<2.0)
[2017-12-19] MEDS ORDERED: MIDAZOLAM 2 MG/2 ML INJ IV ONE (12:49)
[2017-12-19] MEDS ORDERED: ROCURONIUM BROMIDE INJ 50 MG/5 ML VIAL IV ONE ×2 (12:50→15:18)
[2017-12-19] MEDS ORDERED: DEXTROSE 5%-WATER 250 ML with NOREPINEPHRINE BITARTRATE 4 MG IV PRN ×2 (12:50)
[2017-12-19] MEDS ORDERED: VECURONIUM BROMIDE INJ 10 MG VIAL IV ONE (12:50)
[2017-12-19] MEDS ORDERED: DEXTROSE 40% GEL 15 GM TUBE PO PRN ×4 (13:08)
[2017-12-19] MEDS ORDERED: DOBUTAMINE HCL/D5W 500 MG/250 ML RTUINJ IV PRN (13:08)
[2017-12-19] MEDS ORDERED: DEXTROSE 50%-WATER 25 GM/50 ML DISP.SYRIN IV PRN ×4 (13:08)
[2017-12-19] MEDS ORDERED: INSULIN REG, HUMAN 100 UNIT/ML 3 ML VIAL (PYX) SUBCUT PRN (13:08)
[2017-12-19] MEDS ORDERED: GLUCAGON,HUMAN RECOMB 1 MG INJ IM PRN (13:08)
[2017-12-19] MEDS ORDERED: GLUCAGON,HUMAN RECOMB 1 MG INJ SUBCUT PRN (13:08)
[2017-12-19] MEDS ORDERED: VANCOMYCIN HCL INJ 1000 MG VIAL IV ONE (13:36)
[2017-12-19] MEDS ORDERED: LEVOTHYROXINE SODIUM INJ/PF 0.5 MG SDV IV ONE (13:40)
[2017-12-19] MEDS ORDERED: FENTANYL CITRATE INJ/PF 100 MCG/2 ML AMPUL IV PRN (13:44)
[2017-12-19 13:46] LABS: ARTERIAL BLOOD BASE EXCESS 2.7 mmol/L; ARTERIAL BLOOD HCO3 28.1 mmol/L (20-26); ARTERIAL BLOOD O2 SATURATION 94.9 % (94-98); ARTERIAL BLOOD PCO2 46.6 mmHg (35-45); ARTERIAL BLOOD PO2 74.8 mmHg (80-100); ARTERIAL BLOOD TOTAL CO2 29.5 mmol/L (21-25)
[2017-12-19 13:47] LABS: URINE AMPHETAMINES SCREEN NEGATIVE; URINE BARBITURATES SCREEN NEGATIVE; URINE BENZODIAZEPINES SCREEN UNCONFIRMED POSITIVE; URINE COCAINE SCREEN NEGATIVE; URINE MARIJUANA (THC) SCREEN NEGATIVE; URINE METHADONE SCREEN NEGATIVE; URINE PHENCYCLIDINE SCREEN NEGATIVE
[2017-12-19 13:51] LABS: ARTERIAL BLOOD FIO2 25%
[2017-12-19] MEDS ORDERED: IPRATROPIUM/ALBUTEROL 0.5-2.5 MG/3 ML AMPUL NEB SCH (14:00)
[2017-12-19] MEDS ORDERED: CLOPIDOGREL BISULFATE 75 MG TABLET PO ONE (15:00)
[2017-12-19] MEDS ORDERED: FAMOTIDINE INJ/PF 20 MG/2 ML SDV IV ONE (15:00)
[2017-12-19] MEDS ORDERED: LEVOTHYROXINE SODIUM INJ/PF 0.1 MG SDV IV ONE (15:00)
[2017-12-19] MEDS ORDERED: FUROSEMIDE INJ/PF 40 MG/4 ML SDV ONE (15:24)
[2017-12-19 15:30] LABS: ANION GAP 14 (5-19); BLOOD UREA NITROGEN 27 mg/dL (7-20); CALCIUM 9.1 mg/dL (8.4-10.2); CARBON DIOXIDE 32 mmol/L (22-30); CHLORIDE 98 mmol/L (98-107); GLUCOSE 160 mg/dL (75-110); SODIUM 143.9 mmol/L (137-145)
[2017-12-19] MEDS ORDERED: NITROGLYCERIN/D5W 50 MG/250 ML RTUINJ IV PRN (15:38)
[2017-12-19 15:59] LABS: POTASSIUM 4.1 mmol/L (3.6-5.0)
[2017-12-19] MEDS ORDERED: NORMAL SALINE INJ/PF 0.9% 10 ML SDV IV PRN (16:00)
--- NOTE | 2017-12-19 16:05 | PDOC H&P ---
History of Present Illness Admission Date/PCP: 12/19/17 12:46 MAJOR WORKMAN MD History of Present Illness: FARHEEN AGUILAR is a 82 year old female who has been in and out of the hospital for the last year. She has a past medical history for COPD, CHF, for which she underwent valvuloplasty in 08/2017. She has been in and out of the hospital with pneumonia and COPD exacerbation since then . Most recently the patient underwent colonoscopy on Thursday. She was found to have an 11 mm polyp in that exam. Pathology on that polyp is not yet known. The patient's states that since that study the patient has had somewhat loose BM's, but no respiratory issues. This morning he was trying to give the patient her medications and she had a coughing fit during which she vomited up food that was recognizable to the as last night's dinner. After that he states that she was unable to catch her breath and kept coughing. She soon became lethargic and turned blue. EMS was called and at the ED she was found to be hypoxemic and hypercarbic. She was emergently intubated. CXR demonstrated volume overload vs pneumonia. The patient has been hypotensive and has a lactic acid level of 5. Past Medical History Cardiac Medical History: Reports: Atrial Fibrillation, Myocardial Infarction - non-stemi, Hyperlipidema, Hypertension, Other - Aortic stenosis for which she underwent valvuloplasty in 08/2017. Pulmonary Medical History: Reports: Chronic Obstructive Pulmonary Disease (COPD) , Pneumonia - Recurrent, Sleep Apnea - Likely. The patient is to go for a sleep study as outpatient. Endocrine Medical History: Reports: Diabetes Mellitus Type 2, Hypothyroidism Musculoskeltal Medical History: Reports: Arthritis Psychiatric Medical History: Reports: Depression - anxiety Traumatic Medical History: Denies: Gunshot Wound, Traumatic Brain Injury Hematology: Denies: Hemophilia, Sickle Cell Disease, Bleeding Tendencies Infectious Medical History: Denies: Clostridium Difficile Past Surgical History Past Surgical History: Reports: Cholecystectomy, Coronary Stent, Hysterectomy, Other - Valvuloplasty at [facility] Social History Smoking Status: Never Smoker Frequency of Alcohol Use: None Hx Recreational Drug Use: No Drugs: None Hx Prescription Drug Abuse: No Family History Family History: COPD, Hypertension, Malignancy Parental Family History Reviewed: Yes Children Family History Reviewed: Yes Sibling(s) Family History Reviewed.: Yes Medication/Allergy Home Medications: Alprazolam [Xanax] 0.5 mg PO NOON 12/19/17 Alprazolam [Xanax] 1 mg PO QHS 12/19/17 Amlodipine Besylate [Norvasc 5 mg Tablet] 5 mg PO QHS 12/19/17 Ascorbic Acid [Vitamin C 500 mg Tablet] 500 mg PO DAILY 12/19/17 Atorvastatin Calcium [Lipitor 20 mg Tablet] 20 mg PO WSUPPER 12/19/17 Calcium Carbonate/Vitamin D3 [Calcium 600 + Vit D Tablet] 1 tab PO DAILY Clopidogrel Bisulfate [Plavix 75 mg Tablet] 75 mg PO DAILY 12/19/17 Cranberry Conc/C/Bacill Coag [Cranberry Tablet] 1 each PO DAILY 12/19/17 Estropipate [Ogen] 1.5 mg PO MOWEFR@1000 12/19/17 Ferrous Sulfate [Feosol] 325 mg PO BID 12/19/17 Fexofenadine HCl [Macarena Allergy] 180 mg PO QHS 12/19/17 Fluticasone/Salmeterol [Advair HFA 115-21 mcg Inhaler] 2 puff IH Q12 12/19/17 Furosemide [Lasix 40 mg Tablet] 40 mg PO Q2D 12/19/17 Insulin Aspart [Novolog Flexpen] 0 unit SUBCUT .SLD SCALE 12/19/17 Insulin Detemir [Levemir Flextouch] 12 unit SQ DAILY 12/19/17 Ipratropium/Albuterol Sulfate [Duoneb 3 ml Ampul] 3 ml NEB RTQ6HP PRN 12/19/17 Lansoprazole [Prevacid 30 Mg Odt Tablet] 30 mg PO ACBRKFST 12/19/17 Levothyroxine Sodium [Synthroid] 75 mcg PO Q6AM 12/19/17 Losartan Potassium [Cozaar] 100 mg PO QHS 12/19/17 Loteprednol Etabonate [Lotemax 0.5% Ophth Susp] 1 drop OU BID 12/19/17 Meclizine HCl [Antivert 25 mg Tablet] 25 mg PO DAILYP PRN 12/19/17 Metoprolol Succinate [Toprol Xl] 50 mg PO QAM 12/19/17 Nitroglycerin [Nitrostat 0.4 mg (1/150 Gr) Tabs Bottle] 1 tab SL Q5MP PRN [place]-3 Acid Ethyl Esters [Lovaza 1 gm Capsule] 1 gm PO DAILY 12/19/17 Ondansetron HCl [Zofran 4 mg Tablet] 4 mg PO Q6HP PRN 12/19/17 Oxycodone HCl/Acetaminophen [Percocet 7.5-325 mg Tablet] 1 tab PO Q8HP PRN 12/19 Polyethylene Glycol 3350 [Miralax Powder 17 gm/Packet] 1 packet PO DAILY Ubidecarenone [Coenzyme Q-10] 200 mg PO DAILY 12/19/17 Zinc Sulfate [Zinc-220 Capsule] 220 mg PO BID 12/19/17 Allergies/Adverse Reactions: aspirin [Aspirin] Allergy (Verified 10/18/15 14:53) codeine Allergy (Verified 10/21/17 08:57) erythromycin base [Erythromycin Base] Allergy (Verified 10/18/15 14:53) ibuprofen [From Motrin] Allergy (Verified 10/21/17 08:57) morphine [Morphine] Allergy (Verified 10/18/15 14:53) Sulfa (Sulfonamide Antibiotics) Allergy (Verified 10/18/15 14:53) Review of Systems ROS unobtainable: Due to endotracheal tube, Due to mental status Physical Exam Vital Signs: Temp Pulse Resp BP Pulse Ox 96 14 142/54 H 100 12/19/17 09:55 12/19/17 13:51 12/19/17 13:51 12/19/17 13:50 Intake & Output 12/18/17 12/19/17 12/20/17 06:59 06:59 06:59 Output Total 700 Balance -700 General appearance: PRESENT: other - The patient is intubated and sedated. Head exam: PRESENT: atraumatic, normocephalic Eye exam: PRESENT: PERRLA, other - I am unable to evalute the patient's external ocular movements due to her inability to cooperate with exam. No scleral icterus or injection. Neck exam: ABSENT: carotid bruit, JVD, lymphadenopathy, thyromegaly Respiratory exam: PRESENT: decreased breath sounds, other - Lung sounds are distant. No wheezes, rales, or rhonchi are auscultated. Positive for increased work of breathing. Positive for mechanical ventilation. Cardiovascular exam: PRESENT: RRR, other - Heart sounds are distant.. ABSENT: gallop, rubs, systolic murmur Pulses: PRESENT: other - Diminished distal pulses. GI/Abdominal exam: PRESENT: diminished bowel sounds, soft, other - Morbidly obese. Unable to evaluate for organomegaly, masses, or hernias. Bowel sounds are distant Extremities exam: PRESENT: +1 edema. ABSENT: calf tenderness, tenderness Musculoskeletal exam: ABSENT: tenderness Neurological exam: PRESENT: other - The patient is unresponsive. Psychiatric exam: PRESENT: other - Unable to evaluate due to the patient's inability to cooperate with exam. Skin exam: PRESENT: dry, intact, warm Results Laboratory Results: 12/19/17 13:10 Carbonic Acid 1.40 H HCO3/H2CO3 Ratio 20:1 ABG pH 7.40 ABG pCO2 46.6 H ABG pO2 74.8 L ABG HCO3 28.1 H ABG O2 Saturation 94.9 ABG Base Excess 2.7 FiO2 25% Impressions: Chest X-Ray 12/19/17 10:23 IMPRESSION: Asymmetric pulmonary edema versus pneumonia. Vascular congestion. SUPPORT DEVICE(S) IN EXPECTED LOCATIONS. Head CT 12/19/17 10:33 IMPRESSION: CHRONIC CHANGES OF ATROPHY AND MICROVASCULAR ISCHEMIA. NO ACUTE PROCESS. EVIDENCE OF ACUTE STROKE: NO. Assessment & Plan - Diagnosis (1) Acute PR Qualifiers: Myocardial infarction type: unspecified Is this a current diagnosis for this admission?: Yes Plan: I have discussed the patient with Dr. Ramirez. He has recommended starting nitroglycerin, lovenox which had already been ordered, and ASA pr. I have contacted [facility] where the patient had valvular surgery in 08/2017 for transfer. Stat EKG is pending. I have discussed the patient with her nurse. She is aware. She states that the patient off of sedation is completely unresponsive at this time. (2) Acute exacerbation of CHF (congestive heart failure) Qualifiers: Heart failure type: combined systolic and diastolic Qualified Code(s): I50.43 - Acute on chronic combined systolic (congestive) and diastolic ( congestive) heart failure Is this a current diagnosis for this admission?: Yes Plan: Diuresis (3) Full code status Is this a current diagnosis for this admission?: Yes (4) Pneumonia Qualifiers: Pneumonia type: aspiration pneumonia Aspiration pneumonia type: due to gastric secretions Laterality: right Lung location: unspecified part of lung Qualified Code(s): J69.0 - Pneumonitis due to inhalation of food and vomit Is this a current diagnosis for this admission?: Yes Plan: The patient has been intubated. She is receiving IV zosyn and vancomycin. sputum cultures and blood cultures have been ordered. (5) Sepsis Qualifiers: Sepsis type: sepsis due to unspecified organism Qualified Code(s): A41.9 - Sepsis, unspecified organism Plan: Lactic acid has declined from 5.4 to 2.9. She has received aggressive IV fluid resuscitation and pressors. She is currently maintaining a systolic pressure in the 140's off of pressor support. Will continue to follow lactic acid and pressures. (6) Valvular disease Is this a current diagnosis for this admission?: Yes Plan: S/p valvuloplasty at [facility] in 08/2017. I have contacted [facility] for transfer. (7) A-fib Qualifiers: Atrial fibrillation type: paroxysmal Qualified Code(s): I48.0 - Paroxysmal atrial fibrillation Is this a current diagnosis for this admission?: Yes Plan: Rate is stable. (8) Acute on chronic combined systolic and diastolic CHF (congestive heart failure) Is this a current diagnosis for this admission?: Yes Plan: Echocardiogram has been ordered. Diuresis. (9) Acute on chronic respiratory failure with hypoxia and hypercapnia Is this a current diagnosis for this admission?: Yes Plan: Due to aspiration pneumonia and CHF exacerbation. The patient also now has a troponin of 14.5 and is most likely having an acute PR. Stat EKG has been ordered. She is intubated and is now unresponsive. I am seeking transfer to [facility] due to suspicion of acute PR. I have discussed the patient with Dr. Ramirez who has recommended a nitroglycerin gtt and transfer. (10) COPD (chronic obstructive pulmonary disease) Qualifiers: COPD type: COPD with acute exacerbation Qualified Code(s): J44.1 - Chronic obstructive pulmonary disease with (acute) exacerbation Is this a current diagnosis for this admission?: Yes Plan: Due to aspiration pneumonia and CHF exacerbation in the setting of likely acute PR. (11) Chronic pain syndrome Is this a current diagnosis for this admission?: No (12) Hyperlipidemia Qualifiers: Hyperlipidemia type: unspecified Qualified Code(s): E78.5 - Hyperlipidemia , unspecified Is this a current diagnosis for this admission?: Yes Plan: Continue statin. (13) Hypothyroidism Is this a current diagnosis for this admission?: Yes Plan: Continue synthroid. - Time Time Spent: Greater than 70 Minutes Critical Time spent with patient: 35 or more minutes Medications reviewed and adjusted accordingly: Yes Anticipated discharge: Jorge Thakkar Within: when bed available - Inpatient Certification I certify that my determination is in accordance with my understanding of Medicare's requirements for reasonable and necessary INPATIENT services [42 CFR 412.3e].: Yes Medical Necessity: Need Close Monitoring Due to Risk of Patient Decompensation, Need For IV Fluids, Need For Continuous Telemetry Monitoring, Need for Pain Control, Risk of Complication if Not Cared For in Hospital
[2017-12-19] MEDS ORDERED: ASPIRIN 600 MG SUPP, RECTAL PR ONE (16:30)
[2017-12-19] MEDS ORDERED: VANCOMYCIN HCL 1,250 MG in DEXTROSE 5%-WATER 250 ML IV SCH (17:00)
--- NOTE | 2017-12-19 17:25 | PDOC TRANSFER SUMMARY ---
General Admission Date/PCP: 12/19/17 12:46 MAJOR WORKMAN MD - Transfer Diagnosis (1) Acute [place] Is this a current diagnosis for this admission?: Yes (2) Acute exacerbation of CHF (congestive heart failure) Is this a current diagnosis for this admission?: Yes (3) Full code status Is this a current diagnosis for this admission?: Yes (4) Pneumonia Is this a current diagnosis for this admission?: Yes (6) Valvular disease Is this a current diagnosis for this admission?: Yes (7) A-fib Is this a current diagnosis for this admission?: Yes (8) Acute on chronic combined systolic and diastolic CHF (congestive heart failure) Is this a current diagnosis for this admission?: Yes (9) Acute on chronic respiratory failure with hypoxia and hypercapnia Is this a current diagnosis for this admission?: Yes (10) COPD (chronic obstructive pulmonary disease) Is this a current diagnosis for this admission?: Yes (11) Chronic pain syndrome Is this a current diagnosis for this admission?: No (12) Hyperlipidemia Is this a current diagnosis for this admission?: Yes (13) Hypothyroidism Is this a current diagnosis for this admission?: Yes - Transfer Medications Home Medications: Alprazolam [Xanax] 0.5 mg PO NOON 12/19/17 Alprazolam [Xanax] 1 mg PO QHS 12/19/17 Amlodipine Besylate [Norvasc 5 mg Tablet] 5 mg PO QHS 12/19/17 Ascorbic Acid [Vitamin C 500 mg Tablet] 500 mg PO DAILY 12/19/17 Atorvastatin Calcium [Lipitor 20 mg Tablet] 20 mg PO WSUPPER 12/19/17 Calcium Carbonate/Vitamin D3 [Calcium 600 + Vit D Tablet] 1 tab PO DAILY Clopidogrel Bisulfate [Plavix 75 mg Tablet] 75 mg PO DAILY 12/19/17 Cranberry Conc/C/Bacill Coag [Cranberry Tablet] 1 each PO DAILY 12/19/17 Estropipate [Ogen] 1.5 mg PO MOWEFR@1000 12/19/17 Ferrous Sulfate [Feosol] 325 mg PO BID 12/19/17 Fexofenadine HCl [Macarena Allergy] 180 mg PO QHS 12/19/17 Fluticasone/Salmeterol [Advair HFA 115-21 mcg Inhaler] 2 puff IH Q12 12/19/17 Furosemide [Lasix 40 mg Tablet] 40 mg PO Q2D 12/19/17 Insulin Aspart [Novolog Flexpen] 0 unit SUBCUT .SLD SCALE 12/19/17 Insulin Detemir [Levemir Flextouch] 12 unit SQ DAILY 12/19/17 Ipratropium/Albuterol Sulfate [Duoneb 3 ml Ampul] 3 ml NEB RTQ6HP PRN 12/19/17 Lansoprazole [Prevacid 30 Mg Odt Tablet] 30 mg PO ACBRKFST 12/19/17 Levothyroxine Sodium [Synthroid] 75 mcg PO Q6AM 12/19/17 Losartan Potassium [Cozaar] 100 mg PO QHS 12/19/17 Loteprednol Etabonate [Lotemax 0.5% Ophth Susp] 1 drop OU BID 12/19/17 Meclizine HCl [Antivert 25 mg Tablet] 25 mg PO DAILYP PRN 12/19/17 Metoprolol Succinate [Toprol Xl] 50 mg PO QAM 12/19/17 Nitroglycerin [Nitrostat 0.4 mg (1/150 Gr) Tabs 25/Bottle] 1 tab SL Q5MP PRN [place]-3 Acid Ethyl Esters [Lovaza 1 gm Capsule] 1 gm PO DAILY 12/19/17 Ondansetron HCl [Zofran 4 mg Tablet] 4 mg PO Q6HP PRN 12/19/17 Oxycodone HCl/Acetaminophen [Percocet 7.5-325 mg Tablet] 1 tab PO Q8HP PRN 12/19 Polyethylene Glycol 3350 [Miralax Powder 17 gm/Packet] 1 packet PO DAILY Ubidecarenone [Coenzyme Q-10] 200 mg PO DAILY 12/19/17 Zinc Sulfate [Zinc-220 Capsule] 220 mg PO BID 12/19/17 Transfer Medications: Current Medications Albuterol/Ipratropium (Duoneb 3 Ml Ampul) 3 ml NEB RTQ6 BORIS Stop: 01/18/18 13:59 Last Admin: 12/19/17 14:54 Dose: 3 ml Aspirin (Aspirin 600 Mg Rectal Supp) 600 mg NE NOW ONE Stop: 12/19/17 16:31 Clopidogrel Bisulfate (Plavix 75 Mg Tablet) 75 mg PO DAILY BORIS Stop: 01/19/18 09:59 Dextrose (Dextrose Inj 50% Syringe (25 Gm/50 Ml)) 12.5 gm IV PRN PRN; Protocol PRN Reason: FOR BG 50-69 IN ALERT PATIENT Stop: 01/18/18 13:07 Dextrose (Dextrose Inj 50% Syringe (25 Gm/50 Ml)) 25 gm IV PRN PRN; Protocol PRN Reason: PER PROTOCOL Stop: 01/18/18 13:07 Enoxaparin Sodium (Lovenox Inj 40 Mg/0.4 Ml Disp.Syrin) 40 mg SUBCUT DAILY [facility] Stop: 01/19/18 09:59 Famotidine (Pepcid Inj/Pf 20 Mg/2 Ml Sdv) 20 mg IV Q12 BORIS Stop: 01/18/18 21:59 Fentanyl Citrate (Sublimaze Inj/Pf 100 Mcg/2 Ml Ampule) 100 mcg IV Q4HP PRN PRN Reason: FOR PAIN Stop: 12/26/17 13:43 Glucagon (Glucagen Inj 1 Mg Vial) 1 mg IM PRN PRN; Protocol PRN Reason: Evaluate for BG < 70 Stop: 01/18/18 13:07 Glucose (Glutose 40% Gel 15 Gm Tube) 15 gm PO PRN PRN; Protocol PRN Reason: FOR BG 50-69 IN ALERT PATIENT Stop: 01/18/18 13:07 Glucose (Glutose 40% Gel 15 Gm Tube) 30 gm PO PRN PRN; Protocol PRN Reason: FOR BG < 50 IN ALERT PATIENT Stop: 01/18/18 13:07 Heparin Sodium (Porcine) (Heparin Flush 10 Unit/Ml 5 Ml Disp.Syrg) 30 unit IV Q8 BORIS Stop: 01/18/18 21:59 Norepinephrine Bitartrate 4 mg (/ Dextrose) 250 mls @ 0 mls/hr IV CONTINUOUS PRN; Protocol; Titrate PRN Reason: THIS MED IS NOT "PRN" Stop: 01/18/18 12:49 Last Admin: 12/19/17 10:25 Dose: 4 mg Dobutamine HCl/Dextrose (Dobutrex Rtu 500 Mg-D5w 250 Ml Premixed Bag) 500 mg in 250 mls @ 0 mls/hr IV CONTINUOUS PRN; Protocol; Titrate PRN Reason: THIS MED IS NOT "PRN" Stop: 01/18/18 13:07 Piperacillin Sod/Tazobactam (Sod 4.5 gm/ Sodium Chloride) 100 mls @ 200 mls/hr IV Q6 BORIS Stop: 12/26/17 17:59 Midazolam HCl (Versed Rtu 50 Mg/100 Ml Premix Bag) 50 mg in 100 mls @ 0 mls/hr IV CONTINUOUS PRN; Protocol; Titrate PRN Reason: THIS MED IS NOT "PRN" Stop: 12/26/17 14:24 Vancomycin HCl 1,250 mg/ (Dextrose) 250 mls @ 166.667 mls/hr IV DAILY@1700 [facility] Stop: 12/26/17 16:59 Nitroglycerin/Dextrose (Ntg Rtu 50 Mg/D5w 250 Ml Iv Premix Bottle) 50 mg in 250 mls @ 0 mls/hr IV CONTINUOUS PRN; Protocol; Titrate PRN Reason: THIS MED IS NOT "PRN" Stop: 01/18/18 15:37 Last Admin: 12/19/17 16:21 Dose: 250 ml Insulin Detemir (Levemir Insulin 300 Units/3 Ml Insuln.Pen) 8 unit SUBCUT QHS BORIS Stop: 01/18/18 21:59 Insulin Human Regular (Humulin R (Pyxis) Insulin 100 Unit/Ml 3ml) 0 - 12 unit SUBCUT Q6HP PRN; Protocol PRN Reason: PER PROTOCOL Stop: 01/18/18 13:07 Levothyroxine Sodium (Synthroid Inj/Pf 0.1 Mg Sdv) 0.1 mg IV DAILY [facility] Stop: 01/19/18 09:59 Prednisolone Acetate (Inflamase 1% Oph Susp 5 Ml) 1 drop OU BID [facility] Stop: 01/18/18 17:59 Sodium Chloride (Saline Flush 2.5 Ml Monoject Prefil Syrin) 2.5 ml IV Q8 BORIS Stop: 01/18/18 13:59 Last Admin: 12/19/17 16:12 Dose: Not Given Sodium Chloride (Nacl 0.9% Inj/Pf 10 Ml Sdv) 10 ml IV .AFTER EACH USE PRN PRN Reason: AFTER EACH INTERMITTENT USE Stop: 01/18/18 15:59 - Allergies Allergies/Adverse Reactions: aspirin [Aspirin] Allergy (Verified 10/18/15 14:53) codeine Allergy (Verified 10/21/17 08:57) erythromycin base [Erythromycin Base] Allergy (Verified 10/18/15 14:53) ibuprofen [From Motrin] Allergy (Verified 10/21/17 08:57) morphine [Morphine] Allergy (Verified 10/18/15 14:53) Sulfa (Sulfonamide Antibiotics) Allergy (Verified 10/18/15 14:53) Hospital Course Hospital Course: FARHEEN AGUILAR is a 82 year old female who has been in and out of the hospital for the last year. She has a past medical history for COPD, CHF, for which she underwent valvuloplasty in 08/2017. She has been in and out of the hospital with pneumonia and COPD exacerbation since then . Most recently the patient underwent colonoscopy on Thursday. She was found to have an 11 mm polyp in that exam. Pathology on that polyp is not yet known. The patient's states that since that study the patient has had somewhat loose BM's, but no respiratory issues. This morning he was trying to give the patient her medications and she had a coughing fit during which she vomited up food that was recognizable to the as last night's dinner. After that he states that she was unable to catch her breath and kept coughing. She soon became lethargic and turned blue. EMS was called and at the ED she was found to be hypoxemic and hypercarbic. She ws unresponsive. CT of her head in the ED upon presentation is negative for acute pathology. She was emergently intubated. CXR demonstrated volume overload vs pneumonia. The patient has been hypotensive and has a lactic acid level of 5.4. Initial troponin is 0.024. The patient was admitted to the ICU. She had been on Levophed in the ED, but was able to come off of it in the ICU as her systolic blood pressures were in the 140's. She continued to be unresponsive. A follow up troponin was 14.5. A stat EKG was ordered. I discussed the patient with Dr. Ramirez who is manager environmental for this institution for cardiology. He recommended starting a NTG gtt and transferring the patient to [facility]. Transfer to [facility] was initiated, but the patient's family requested transfer to [facility] instead as this is where the patient underwent valvuloplasty in August of this year. I initially spoke to a Dr. May who wanted results of the EKG before he would talk a bout a transfer. Despite 2 calls to the ICU about the EKG it was not yet available. He has also requested a follow up CT head, due to her unresponsive state. I ordered this, but then was informed by the nurse that she had been unresponsive upon arrival in the ED prior to the CT performed there. The EKG was finally performed and was unchanged from an EKG performed in October of this year. It demonstrates a left bundle branch block. I then called back [facility] and spoke with Dr. Chaney. He has accepted the patient in transfer. Physical Exam Vital Signs: Temp Pulse Resp BP Pulse Ox 96 14 142/54 H 100 12/19/17 09:55 12/19/17 13:51 12/19/17 13:51 12/19/17 16:37 Intake & Output 12/18/17 12/19/17 12/20/17 06:59 06:59 06:59 Output Total 1300 Balance -1300 Weight 88.3 kg Additional comments: Please seen today's H&P for physical exam on the day of transfer. Results Laboratory Results: 12/19/17 14:55 12/19/17 12/19/17 12/19/17 13:10 14:28 14:55 Carbonic Acid 1.40 H HCO3/H2CO3 Ratio 20:1 ABG pH 7.40 ABG pCO2 46.6 H ABG pO2 74.8 L ABG HCO3 28.1 H ABG O2 Saturation 94.9 ABG Base Excess 2.7 FiO2 25% Sodium 143.9 Potassium 4.1 D Chloride 98 Carbon Dioxide 32 H Anion Gap 14 BUN 27 H Creatinine 0.84 Est GFR ( Amer) > 60 Est GFR (Non-Af Amer) > 60 Glucose 160 H Lactic Acid 2.9 H Calcium 9.1 12/19/17 12/19/17 14:28 14:55 Troponin I 14.500 17.200 Impressions: Chest X-Ray 12/19/17 10:23 IMPRESSION: Asymmetric pulmonary edema versus pneumonia. Vascular congestion. SUPPORT DEVICE(S) IN EXPECTED LOCATIONS. Head CT 12/19/17 10:33 IMPRESSION: CHRONIC CHANGES OF ATROPHY AND MICROVASCULAR ISCHEMIA. NO ACUTE PROCESS. EVIDENCE OF ACUTE STROKE: NO. Plan Discharge Plan: The patient will be transferred to [facility] and has been accepted by Dr. Chaney. Time Spent: Greater than 30 Minutes
[2017-12-19] MEDS ORDERED: PREDNISOLONE ACETATE 1% OPH SUSP 5 ML OU SCH (18:00)
[2017-12-19] MEDS ORDERED: PIPERACILLIN SODIUM/TAZOBACTAM 4.5 GM in NORMAL SALINE 100 ML IV SCH (18:00)
[2017-12-19] MEDS ORDERED: ENOXAPARIN SODIUM INJ 100 MG/1 ML DISP.SYRIN SUBCUT SCH (18:00)
[2017-12-19 18:20] VITALS: BP 125/60
--- NOTE | 2017-12-19 21:48 | EKG REPORT ---
SEVERITY:- ABNORMAL ECG - SINUS RHYTHM MULTIPLE ATRIAL PREMATURE COMPLEXES LEFT BUNDLE BRANCH BLOCK : Confirmed by: Emily Bullard MD 19-Dec-2017 21:48:00
--- NOTE | 2017-12-19 21:49 | EKG REPORT ---
SEVERITY:- ABNORMAL ECG - SINUS RHYTHM LEFT BUNDLE BRANCH BLOCK : Confirmed by: Emily Bullard MD 19-Dec-2017 21:48:33
[2017-12-19] MEDS ORDERED: FAMOTIDINE INJ/PF 20 MG/2 ML SDV IV SCH (22:00)
[2017-12-19] MEDS ORDERED: INSULIN DETEMIR 100 UNIT/ML 3 ML PEN SUBCUT SCH (22:00)
--- NOTE | 2017-12-20 05:35 | CONSULTATION REPORT E ---
Consultation Report NAME: FARHEEN AGUILAR : 1935 AGE: 82Y DATE: 12/19/2017 609 A TO: GEORGE NARANJO M.D. FROM: Jonas DYE, Requesting Physician The patient is seen at 6 p.m. on 12/19/2017. A total of 55 minutes spent on the patient with more than 50% of the time spent in direct patient care and also obtaining history from the patient's , since the patient is intubated and sedated and cannot give a history. HISTORY OF PRESENT ILLNESS: The patient is an 81-year-old female with known history of coronary artery disease, history of stents, history of aortic stenosis, status post aortic valvuloplasty x2, history of asthma/COPD, hypertension, diabetes mellitus and hyperthyroidism with recurrent respiratory tract problems, who recently had a colonoscopy and polyp removed after which the patient has been having some diarrhea and debility and increased fatigue. As per the this morning, he went to give her Synthroid and she spit it out and he thought that her mouth was dry and hence, he gave her some water to drink. The patient choked on this and subsequently had a coughing spells and vomited what seemed like last night's dinner. The patient also became very short of breath and EMS found that the O2 saturation had gone down to 58%. She was noted to be in acute respiratory failure with hypoxemia and hypercapnia and was intubated. Chest x-ray also shows that the patient has a right-sided pneumonia secondary to aspiration and also some evidence of congestive heart failure. The patient in the emergency room had transient hypotension and was placed dobutamine and Levophed, which have since been discontinued and the patient's blood pressure has been stable at around just above 130 systolic. There are no fevers, chills or rigors. There is no chest pain as per the . Note, the patient has chronic left bundle branch block pattern and also was found to have a troponin-I, which was initially 2.5 and subsequently went up to 14 and then subsequently 17. PAST MEDICAL HISTORY: 1. Positive for history of hypertension. 2. She has history of diabetes mellitus. 3. History of asthma and COPD, although the patient does not smoke. 4. There is no history of sleep apnea. 5. She has history of chronic rotator cuff degenerative disease and almost has subluxation of the right humerus. 6. The patient does not ambulate much since the valvuloplasty, which was done a second time in August 2017. 7. The patient has history of coronary artery disease. Although no myocardial infarction, she has stents to the LAD, RCA and circumflex. The cardiac catheterization done prior to her second valvuloplasty in August 2017 showed the stents were patent and there was no significant coronary artery disease. Her last echo showed a normal LV ejection fraction. She also had aortic valvuloplasty in 2016, which re-stenosed and subsequently had a second valvuloplasty as mentioned earlier. 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 The patient has been debilitated and has generalized malnutrition and is able to just sit up at the edge of the bed and can walk with physical therapy. 8. Multiple episodes of pneumonia and acute exacerbation of COPD since the valvuloplasty. 9. No history of TIA or CVA. 10. She has history of diabetes mellitus type 2. 11. She has history of paroxysmal atrial fibrillation with no recurrence. 12. She has hyperlipidemia. 13. Hypothyroidism. 14. She also has history of arthritis. PAST SURGICAL HISTORY: Positive for: 1. Cholecystectomy. 2. Cardiac catheterization. 3. Coronary stent placement. 4. Aortic valvuloplasty with balloon x2. 5. She has also had a hysterectomy. SOCIAL HISTORY: She has never smoked. There is no history of ETOH abuse. ADVANCE DIRECTIVES: In the past she used to be a DNR. At present, she is a FULL CODE. Her is her surrogate healthcare decision-maker. ALLERGIES: 1. ASPIRIN. 2. CODEINE. 3. ERYTHROMYCIN. 4. MOTRIN. 5. MORPHINE. 6. SULFA. FAMILY HISTORY: Positive for diabetes mellitus, hypertension and coronary artery disease. MEDICATIONS: As per MAR. These were reviewed. Note, the patient is sedated with propofol. Her blood pressure is stable. She is off the inotropes. She is on antibiotics and nebulizer treatments. REVIEW OF SYSTEMS: As per . CONSTITUTIONAL: Complains of generalized fatigue and debility. There is no fever, chills or rigors. HEAD: No headaches or head injury. EYES: No history of amblyopia or diplopia. No history of amaurosis fugax. EARS: No history of hearing loss. No history of tinnitus. No history of recurrent ear infections. NOSE: No history of nosebleeds. No history of hay fever. MOUTH: No complaints of altered taste sensation. No bleeding from the gums. THROAT: No history of odynophagia or dysphagia. No history of recurrent sore throats. SKIN: No history of pruritus. No history of petechiae or ecchymoses. No yellowish discoloration of the skin. LUNGS: History of asthma or COPD. History of multiple pneumoniae and acute exacerbations of COPD episodes, especially since after the second valvuloplasty in August 2017. She is not a smoker. She has no history of sleep apnea. There are no recent symptoms or wheezing, cough or sputum production or any symptoms suggestive of upper or lower respiratory tract infection. No hemoptysis. No history of pulmonary embolism. CARDIAC: History of hypertension. History of coronary artery disease. History of stents in the circumflex, RCA and LAD, which appear to be patent in August 2017. History of aortic valvuloplasty. History of atrial fibrillation with no recent recurrence of that. History of congestive heart failure. Also this admission, the patient most likely has been having congestive heart failure. There is no history of syncope. No history of PND, orthopnea or leg edema. GASTROINTESTINAL: No history of GI bleed, no history of peptic ulcer disease. History of GERD present. No history of fatty food intolerance. No history of hepatitis. No history of jaundice. No history of altered bowel movements, although recently after the colonoscopy, she has been having painless bloodless diarrhea. ENDOCRINE: History of diabetes mellitus type 2, insulin requiring. History of hypothyroidism. No history of polydipsia or polyuria. No history of heat or cold intolerance. No history of hirsutism. No history of excessive sweating. RENAL: No history of chronic kidney disease. There are no symptoms of UTI. No history of hematuria, dysuria, pyuria or dysuria. METABOLIC: Denies history of gout or hyperlipidemia. MUSCULOSKELETAL: Denies any arthritis or collagen vascular disease. CENTRAL NERVOUS SYSTEM: No history of TIA or CVA. No history of headaches, migraines, or seizures. No history of gait imbalance. PSYCHIATRIC: As per the , there is history of depression. No history of suicidal ideation. No history of homicidal ideation. HEMATOLOGIC: No history of bleeding diathesis, no history of clotting disorder. Of note, the patient states he and the patient known she has to take antibiotic prophylaxis prior to dental, GI or procedures in view of the aortic valvuloplasty done. PHYSICAL EXAMINATION: GENERAL: On examination the patient is intubated and sedated. VITAL SIGNS: Temperature 99.9 degrees Fahrenheit, pulse 86 beats/min. Monitor shows left bundle branch block pattern. There is no arrhythmia seen on the monitor. Blood pressure 137/66. Respirations 14/min on mechanical ventilator with O2 saturation of 99% on FiO2 of 100% of O2. HEENT: Head is atraumatic, normocephalic. Eyes: Pupils are equal, round and regular, reactive to light. Ears: Tympanic membranes are intact, external auditory canals are clear. Nose: There is no deviated nasal septum. There is no inflammation of the nasal mucous membrane. Throat and mouth not examined, except on mouth, mucous membranes appear moist. SKIN: There is no skin rashes. There is no petechiae or ecchymosis. NECK: Supple. There is no JVD. Carotids are equal. There are no bruits. There is transmitted murmur of the aortic area to the carotids. There is no carotid delay. There is no lymphadenopathy. Trachea is central. LUNGS: Dry crackles in the right mid zone. A few rales of CHF in the left base, which is very minimal. HEART: S1, S2 is heard. There are no S3 or S4 gallops. There is a murmur of aortic stenosis present, grade 2/6. There is no thrill. The second heart sound is well heard. There is murmur of mitral regurgitation present. There is no rub. ABDOMEN: Soft. There is no hepatosplenomegaly. Bowel sounds are heard. EXTREMITIES: Femorals are diminished bilaterally. Leg pulses are diminished. There is no pedal edema. There are no femoral bruits. There is no cyanosis or clubbing. There is no DVT or cellulitis. CENTRAL NERVOUS SYSTEM/PSYCHIATRIC: Not examined since the patient is intubated and sedated. DIAGNOSTICS: The patient's EKG shows sinus rhythm with left bundle branch block pattern. The patient's chest x-ray is compatible with right lower lobe and right middle lobe with an element of congestive heart failure, which is mild. The patient's sodium is 143.9, potassium 4.1, chloride 98, CO2 32, BUN 27, creatinine 0.8, GFR greater than 60, glucose 160, calcium 9.1. Lactic acid 5.4 and subsequently came down to 2.9. Anti-ProBNP 1310. Initial troponin 0.024 and subsequently went up to 14.5 and then next one was 15.2. The patient's liver function tests showed elevated AST of 50. Note, earlier this morning the patient's GFR was 48. Lipase 58.2, albumin 4.0, total protein 7.9. White count 9600, hemoglobin 9.9, hematocrit 30.8, platelet count 241,000. ProTime 15.3, INR 1.15. ABG showed venous pH initially 7.15, PCO2 2.7. On FiO2 of 25%, the pH was 7.40, PCO2 46.6 and PO2 34.8, O2 saturation 94.9%. Urine opiates, urine methadone, urine barbiturates, urine phencyclidine, urine cocaine screen and urine marijuana screen were all negative. Her urine benzodiazepine is unconfirmed positive. IMPRESSION: 1. Acute hypoxic hypercapnic respiratory failure requiring intubation. 2. Elevated troponin-I in a patient with left bundle branch block and coronary artery disease. I have to assume this was a hiv-[id number] myocardial infarction. 3. Tim-XL-azowsvfgp myocardial infarction. 4. Aspiration pneumonia. 5. Congestive heart failure, transient, at present compensated. 6. Coronary artery disease with history of stents in the left anterior descending artery, circumflex and right coronary artery. 7. Aortic stenosis, status post aortic valvuloplasty x2, last in August of 2017. 8. Hypertension. The patient had transient episode of hypotension. At present, the patient's blood pressure is stable. 9. Diabetes mellitus. 10. Hypothyroidism. 11. Chronic left bundle branch block pattern. 12. Chronic obstructive pulmonary disease/asthma. 13. Chronic pain syndrome. 14. Malnutrition. 15. Generalized debility. 16. History of paroxysmal atrial fibrillation with no recurrence. RECOMMENDATIONS: We will place the patient on full dose Lovenox at 1 mg/kg subcutaneously q.12 hours. Note, the patient is allergic to aspirin and hence, we will start the patient on Plavix. I would also since the patient's blood pressure is stable, would start the patient on a beta belkis via NG tube and also start the patient on IV nitroglycerin drip. Would recommend transfer to tertiary center since the patient may require multispecialty care. Note, the patient's prognosis is very guarded. This has been discussed with the patient's . Note, 55 minutes spent on this patient with more 50% of the time spent in direct patient care. Also, review of the patient's old records. Medical decision-making is high complexity. Her medications have been reviewed and medications adjustments have been suggested and this has been carried out by the attending physician. We will sign off the care since the patient is being transferred to [facility], where her physicians, especially apparatus cleaner, are located. Thanking you. DICTATING PHYSICIAN: GEORGE NARANJO M.D. [id number] [facility]#: [id number] ID: [id number] JOB#: [id number] ACCT: [id number] cc:GEORGE NARANJO M.D. >
[2017-12-20] MEDS ORDERED: CLOPIDOGREL BISULFATE 75 MG TABLET PO SCH (10:00)
[2017-12-20] MEDS ORDERED: ENOXAPARIN SODIUM INJ 40 MG/0.4 ML DISP.SYRIN SUBCUT SCH (10:00)
[2017-12-20] MEDS ORDERED: LEVOTHYROXINE SODIUM INJ/PF 0.1 MG SDV IV SCH (10:00)
[2017-12-20] MEDS ORDERED: VANCOMYCIN HCL 0 MG in DEXTROSE 5%-WATER 250 ML IV NR (13:15)
== END 2017-12-19 18:25 | disposition short-term general hospital (02) | DRG 280 ==
LOC: ER 09:48 → EH 12:46 → ICU 14:30
PROVIDERS: ADMIT Student in an Organized Health Care Education/Training Program; ATTEND Student in an Organized Health Care Education/Training Program
PROC: 0BH17EZ Insertion of Endotracheal Airway into Trachea, Via Natural or Artificial Opening (ICD-10-PCS; principal; 2017-12-19)
PROC: 05HY33Z Insertion of Infusion Device into Upper Vein, Percutaneous Approach (ICD-10-PCS; 2017-12-19)
DX: I21.4 Non-ST elevation (NSTEMI) myocardial infarction (principal); J69.0 Pneumonitis due to inhalation of food and vomit; J96.22 Acute and chronic respiratory failure with hypercapnia; J96.21 Acute and chronic respiratory failure with hypoxia; I50.43 Acute on chronic combined systolic (congestive) and diastolic (congestive) heart failure; J44.9 Chronic obstructive pulmonary disease, unspecified; I48.0 Paroxysmal atrial fibrillation; I11.0 Hypertensive heart disease with heart failure; E11.9 Type 2 diabetes mellitus without complications; I25.10 Atherosclerotic heart disease of native coronary artery without angina pectoris; E03.9 Hypothyroidism, unspecified; F41.8 Other specified anxiety disorders; R41.82 Altered mental status, unspecified; I25.2 Old myocardial infarction; Z79.01 Long term (current) use of anticoagulants; Z79.4 Long term (current) use of insulin; Z79.899 Other long term (current) drug therapy; Z95.2 Presence of prosthetic heart valve
CPT/HCPCS: 36415; 51702; 70450; 71045; 80048; 80053; 80307; 81001; 82803; 83605; 83690; 83880; 84484; 85025; 85610; 87040; 87070; 87077; 87086; 87088; 87186; 87205; 93005; 93010; 94002; 94640; 96361; 96365; 96375; 99291; C1751; J1815; J1940; J2250; J2543; J3490; J7030; J7060; J7620; S0028

== ENCOUNTER 2018-03-14 19:56 | Inpatient (IN) | payer MEDICARE ==
--- NOTE | 2018-03-14 20:33 | ER Document Report ---
ED General - General Stated Complaint: DIFFICULTY BREATHING Time Seen by Provider: 03/14/18 20:23 Notes: Patient is an 82-year-old female with a past medical history of hypertension, prior GA, CHF, who presents with 24 hours of shortness of breath, cough, and concerned that an outpatient chest x-ray demonstrated possible recurrent pneumonia. Patient normally uses 1.5 L of nasal cannula oxygen at baseline, states that she is feeling increasingly short of breath on this amount of supplemental oxygen. She has not had fever or constitutional symptoms. She has not been weighing herself but believes she has gained some fluid since being discharged from the nursing facility several days ago. Has been taking all medications as directed. TRAVEL OUTSIDE OF THE [place] IN LAST 30 DAYS: No - Related Data Allergies/Adverse Reactions: aspirin [Aspirin] Allergy (Verified 10/18/15 14:53) codeine Allergy (Verified 10/21/17 08:57) erythromycin base [Erythromycin Base] Allergy (Verified 10/18/15 14:53) ibuprofen [From Motrin] Allergy (Verified 10/21/17 08:57) morphine [Morphine] Allergy (Verified 10/18/15 14:53) Sulfa (Sulfonamide Antibiotics) Allergy (Verified 10/18/15 14:53) Past Medical History - General Information source: Patient, Relative - Social History Smoking Status: Never Smoker Frequency of alcohol use: None Drug Abuse: None Lives with: Spouse/Significant other Family History: COPD, Hypertension, Malignancy - Past Medical History Cardiac Medical History: Reports: Hx Atrial Fibrillation, Hx Heart Attack - non- stemi, Hx Hypercholesterolemia, Hx Hypertension Pulmonary Medical History: Reports: Hx COPD, Hx Pneumonia - Recurrent, Hx Sleep Apnea - Likely. The patient is to go for a sleep study as outpatient. Endocrine Medical History: Reports: Hx Diabetes Mellitus Type 2, Hx Hypothyroidism Renal/ Medical History: Denies: Hx Peritoneal Dialysis Musculoskeletal Medical History: Reports Hx Arthritis Psychiatric Medical History: Reports: Hx Depression - anxiety Traumatic Medical History: Denies: Hx Gunshot Wound, Hx Traumatic Brain Injury Infectious Medical History: Denies: Hx C-Diff Past Surgical History: Reports: Hx Cholecystectomy, Hx Coronary Stent, Hx Hysterectomy, Hx Neurologic Surgery - Neck 2011, Other - Valvuloplasty at [facility] - Immunizations Hx Diphtheria, Pertussis, Tetanus Vaccination: Yes Hx Pneumococcal Vaccination: 07/09/10 Review of Systems - Review of Systems Notes: Constitutional: Negative for fever. HENT: Negative for sore throat. Eyes: Negative for visual changes. Cardiovascular: Negative for chest pain. Respiratory: Positive for shortness of breath. Gastrointestinal: Negative for abdominal pain, vomiting or diarrhea. Genitourinary: Negative for dysuria. Musculoskeletal: Negative for back pain. Skin: Negative for rash. Neurological: Negative for headaches, weakness or numbness. 10 point ROS negative except as marked above and in HPI. Physical Exam - Vital signs Vitals: Resp Pulse Ox 15 96 03/14/18 20:02 03/14/18 20:02 Interpretation: Hypertensive Notes: PHYSICAL EXAMINATION: GENERAL: Appears to be in mild respiratory distress HEAD: Atraumatic, normocephalic. EYES: Pupils equal round and reactive to light, extraocular movements intact, sclera anicteric, conjunctiva are normal. ENT: nares patent, oropharynx clear without exudates. Moderately dry mucous membranes. NECK: Normal range of motion, supple without lymphadenopathy LUNGS: Mild tachypnea, diminished at the bilateral bases, no wheezing HEART: Regular rate and rhythm without murmurs ABDOMEN: Soft, nontender, normoactive bowel sounds. No guarding, no rebound. No masses appreciated. EXTREMITIES: Normal range of motion, 1+ pitting edema in the bilateral lower extremities that is equal and symmetric. No cyanosis. NEUROLOGICAL: No focal neurological deficits. Moves all extremities spontaneously and on command. PSYCH: Normal mood, normal affect. SKIN: Warm, Dry, normal turgor, no rashes or lesions noted. Course - Re-evaluation Re-evalutation: 03/14/18 20:33 Patient presents with concerns of postnasal drip, persistent cough, questionable pneumonia on an outpatient x-ray and her doctor requested that she come to the emergency room for repeat chest x-ray to see if she did have a pneumonia. She has not had fever or constitutional symptoms. She does use oxygen at baseline, currently 94% on 3 L by nasal cannula which is double her normal supplemental oxygen she does have some dullness to her respirations at the left base. Chest x-ray and labs pending 03/14/18 22:00 Chest x-ray does show findings consistent with pulmonary edema, vascular congestion. Labs are pending. Patient remains moderately tachypneic, respiratory rate approximately 26 breaths/min and continues to saturate into the low 90s on 3 L by nasal cannula. Furosemide 40 mg IV has been administered. Patient normally takes furosemide 40 every 2 days p.o. at home. Anticipate the patient will require hospitalization. 03/14/18 22:38 Patient's tachycardia is becoming more notable and she is becoming increasingly hypertensive. Concern that her work of breathing is continuing to elevate, will place on BiPAP to assist with pulmonary edema and work of breathing. Also apply Nitropaste. Will continue to monitor this patient as she is entering into guarded condition at this point. 03/14/18 23:21 Patient's work of breathing has markedly improved since application of BiPAP. She is now breathing approximately 21 times per minute, saturating 98% on 35% FiO2. She is now able to converse normally. Her tachycardia is likewise normalized down to 98 bpm. Will discuss with the hospitalist for admission. - Vital Signs Vital signs: Temp Pulse Resp BP Pulse Ox 98.6 F 24 H 150/59 H 96 03/14/18 20:18 03/14/18 22:38 03/14/18 22:04 03/14/18 22:38 - Laboratory Result Diagrams: 03/14/18 21:13 03/14/18 22:03 Laboratory results interpreted by me: 03/14/18 03/14/18 03/14/18 21:13 21:13 22:03 WBC 12.6 H RBC 3.62 L Hgb 10.5 L Hct 30.8 L RDW 15.2 H Lymphocytes % 11.6 L Absolute Neutrophils 9.2 H VBG pH 7.43 H Sodium 132.7 L Potassium 5.1 H Chloride 94 L Glucose 145 H NT-Pro-B Natriuret Pep 03/14/18 22:03 WBC RBC Hgb Hct RDW Lymphocytes % Absolute Neutrophils VBG pH Sodium Potassium Chloride Glucose NT-Pro-B Natriuret Pep 3650 H - Diagnostic Test Radiology reviewed: Image reviewed, Reports reviewed Radiology results interpreted by me: 03/14/18 22:37 Chest x-ray pulmonary vascular congestion, pulmonary edema and cardiomegaly - EKG Interpretation by Me Additional EKG results interpreted by me: 03/14/18 23:21 Sinus rhythm, left bundle branch block Critical Care Note - Critical Care Note Total time excluding time spent on procedures (mins): 36 Comments: Critical care time spent obtaining history from patient or surrogate, discussions with consultants, development of treatment plan with patient or surrogate, evaluation of patient's response to treatment, examination of patient , ordering and performing treatments and interventions, ordering and review of laboratory studies, re-evaluation of patient's condition, ordering and review of radiographic studies and review of old charts Discharge - Discharge Clinical Impression: Respiratory distress CHF exacerbation Qualifiers: Heart failure type: unspecified Qualified Code(s): I50.9 - Heart failure, unspecified Pulmonary edema Qualifiers: Chronicity: acute Qualified Code(s): J81.0 - Acute pulmonary edema Condition: Fair Disposition: ADMITTED INPATIENT Admitting Provider: Hospitalist Unit Admitted: Telemetry
--- NOTE | 2018-03-14 21:12 | RADIOLOGY REPORT (SQ) ---
EXAM DESCRIPTION: CHEST SINGLE VIEW COMPLETED DATE/TIME: 03/14/2018 8:49 pm REASON FOR STUDY: sob, cough COMPARISON: Chest films 12/19/2017, 10/23/2017 EXAM PARAMETERS: NUMBER OF VIEWS: One view. TECHNIQUE: Single frontal radiographic view of the chest acquired. RADIATION DOSE: NA LIMITATIONS: None. FINDINGS: LUNGS AND PLEURA: Pulmonary vascular congestion is present with mild bilateral perihilar p ulmonary edema. No pleural effusions. No pneumothorax. MEDIASTINUM AND HILAR STRUCTURES: No masses. Contour normal. HEART AND VASCULAR STRUCTURES: Marked cardiomegaly BONES: No acute findings. HARDWARE: None in the chest. OTHER: No other significant finding. IMPRESSION: Mild pulmonary edema and pulmonary vascular congestion. Marked cardiomegaly. TECHNICAL DOCUMENTATION: JOB ID: [id number] [employer]- All Rights Reserved Reading location - IP/workstation name: [email or web address]
[2018-03-14 21:20] LABS: ABSOLUTE BASOPHILS # (AUTO) 0.1 10^3/uL (0.0-0.2); ABSOLUTE EOSINOPHILS # (AUTO) 0.4 10^3/uL (0.0-0.6); ABSOLUTE LYMPHOCYTES (AUTO) 1.5 10^3/uL (0.5-4.7); ABSOLUTE MONOCYTES (AUTO) 1.4 10^3/uL (0.1-1.4); ABSOLUTE NEUT (AUTO) 9.2 10^3/uL (1.7-8.2); EOSINOPHILS % (AUTO) 3.5 % (0-6); HEMATOCRIT 30.8 % (36.0-47.0); HEMOGLOBIN 10.5 g/dL (12.0-15.5); LYMPHOCYTES % (AUTO) 11.6 % (13-45); MEAN CORPUSCULAR HEMOGLOBIN 29.1 pg (27.0-33.4); MEAN CORPUSCULAR HGB CONC 34.2 g/dL (32.0-36.0); MEAN CORPUSCULAR VOLUME 85 fl (80-97); MONOCYTES % (AUTO) 10.9 % (3-13); PLATELET COUNT 389 10^3/uL (150-450); RED BLOOD COUNT 3.62 10^6/uL (3.72-5.28); RED CELL DISTRIBUTION WIDTH 15.2 % (11.5-14.0); TOTAL CELLS COUNTED % (AUTO) 100 %; WHITE BLOOD COUNT 12.6 10^3/uL (4.0-10.5)
[2018-03-14 21:23] LABS: VENOUS BLOOD HCO3 26.3 mmol/L (20-32); VENOUS BLOOD PCO2 40.2 mmHg (35-63); VENOUS BLOOD PH 7.43 (7.30-7.42)
[2018-03-14] MEDS ORDERED: FUROSEMIDE INJ/PF 40 MG/4 ML SDV IV ONE (21:49)
[2018-03-14] MEDS ORDERED: NITROGLYCERIN 5 MG (0.2 MG/HR) PATCH.TD24 TD ONE (22:38)
[2018-03-14 22:39] LABS: ANION GAP 11 (5-19); BLOOD UREA NITROGEN 18 mg/dL (7-20); CALCIUM 9.5 mg/dL (8.4-10.2); CARBON DIOXIDE 28 mmol/L (22-30); CHLORIDE 94 mmol/L (98-107); GLUCOSE 145 mg/dL (75-110); POTASSIUM 5.1 mmol/L (3.6-5.0); SODIUM 132.7 mmol/L (137-145)
[2018-03-14 22:50] LABS: TROPONIN I 0.028 ng/mL
--- NOTE | 2018-03-14 23:33 | EKG REPORT ---
SEVERITY:- ABNORMAL ECG - SINUS OR ECTOPIC ATRIAL TACHYCARDIA ATRIAL PREMATURE COMPLEX LEFT ATRIAL ABNORMALITY LEFT BUNDLE BRANCH BLOCK : Confirmed by: Francisco J Ferrer 14-Mar-2018 23:32:36
[2018-03-15] MEDS ORDERED: ACETAMINOPHEN 325 MG TABLET PO PRN (00:35)
[2018-03-15] MEDS ORDERED: NITROGLYCERIN 0.4 MG/TAB 25 TAB/BOTTLE SL PRN ×2 (00:35→02:06)
[2018-03-15] MEDS ORDERED: PROMETHAZINE HCL 25 MG TABLET PO PRN (00:35)
[2018-03-15] MEDS ORDERED: GLUCAGON,HUMAN RECOMB 1 MG INJ SUBCUT PRN (00:35)
[2018-03-15] MEDS ORDERED: DEXTROSE 50%-WATER 25 GM/50 ML DISP.SYRIN IV PRN ×6 (00:35→14:36)
[2018-03-15] MEDS ORDERED: DEXTROSE 40% GEL 15 GM TUBE PO PRN ×6 (00:35→14:36)
[2018-03-15] MEDS ORDERED: PROMETHAZINE HCL INJ 25 MG/1 ML VIAL IV PRN ×2 (00:35→08:30)
[2018-03-15] MEDS ORDERED: MAG HYDROX/AL HYDROX/SIMETH SUSP 30 ML UDCUP PO PRN (00:35)
[2018-03-15] MEDS ORDERED: INSULIN REG, HUMAN 100 UNIT/ML 3 ML VIAL (PYX) SUBCUT PRN (02:03)
[2018-03-15] MEDS ORDERED: GLUCAGON,HUMAN RECOMB 1 MG INJ IM PRN ×2 (02:03→14:36)
--- NOTE | 2018-03-15 02:03 | PDOC H&P ---
History of Present Illness Admission Date/PCP: 03/14/18 23:50 MAJOR WORKMAN MD Patient complains of: Shortness of breath History of Present Illness: FARHEEN AGUILAR is a 82 year old female who has multiple medical conditions that I will outline below, remarkable for chronic systolic and diastolic CHF. Apparently patient has been discharged 2 days ago from a different facility, unknown diagnosis, it is not a very good historian has BiPAP in place. Patient tells me that her symptoms started 2 days ago, she has been compliant with her medications, progressive shortness of breath, denies cough, denies phlegm or wheezing, complains of rhinorrhea, denies sore throat. Has been feeling cold but denies fever or chills. Denies chest pain, nausea, vomiting, abdominal pain , diarrhea or urinary symptoms. Patient has history of frequent pneumonia and has chronic respiratory failure at 1.5 L oxygen nasal cannula at home, in the emergency department she was saturating 94% on 2 L nasal cannula and was noted tachypneic, tachycardic and becoming hypertensive, thus the reason that she was initiated on BiPAP. After BiPAP initiation of her vital signs are stabilized. Given 40 mg of IV Lasix, she is usually on 40 mg 2 times a day at home. Chest x-ray shows right more than left pulmonary edema with vascular congestion and cardiomegaly. Past Medical History Cardiac Medical History: Reports: Atrial Fibrillation, Congestive Heart Failure , Myocardial Infarction - non-stemi, Hyperlipidema, Hypertension Pulmonary Medical History: Reports: Chronic Obstructive Pulmonary Disease (COPD) , Pneumonia - Recurrent, Sleep Apnea - Likely. The patient is to go for a sleep study as outpatient. Endocrine Medical History: Reports: Diabetes Mellitus Type 2, Hypothyroidism Musculoskeltal Medical History: Reports: Arthritis Psychiatric Medical History: Reports: Depression - anxiety Traumatic Medical History: Denies: Gunshot Wound, Traumatic Brain Injury Hematology: Denies: Hemophilia, Sickle Cell Disease, Bleeding Tendencies Infectious Medical History: Denies: Clostridium Difficile Past Surgical History Past Surgical History: Reports: Cholecystectomy, Coronary Stent, Hysterectomy, Other - Valvuloplasty at [facility] Social History Lives with: Spouse/Significant other Smoking Status: Never Smoker Frequency of Alcohol Use: None Hx Recreational Drug Use: No Drugs: None Hx Prescription Drug Abuse: No Family History Family History: COPD, Hypertension, Malignancy Parental Family History Reviewed: Yes - As above Children Family History Reviewed: NA Sibling(s) Family History Reviewed.: NA Medication/Allergy Home Medications: Alprazolam [Xanax] 0.5 mg PO NOON 12/19/17 Alprazolam [Xanax] 1 mg PO QHS 12/19/17 Amlodipine Besylate [Norvasc 5 mg Tablet] 5 mg PO QHS 12/19/17 Ascorbic Acid [Vitamin C 500 mg Tablet] 500 mg PO DAILY 12/19/17 Atorvastatin Calcium [Lipitor 20 mg Tablet] 20 mg PO WSUPPER 12/19/17 Calcium Carbonate/Vitamin D3 [Calcium 600 + Vit D Tablet] 1 tab PO DAILY Clopidogrel Bisulfate [Plavix 75 mg Tablet] 75 mg PO DAILY 12/19/17 Cranberry Conc/C/Bacill Coag [Cranberry Tablet] 1 each PO DAILY 12/19/17 Estropipate [Ogen] 1.5 mg PO MOWEFR@1000 12/19/17 Ferrous Sulfate [Feosol] 325 mg PO BID 12/19/17 Fexofenadine HCl [Macarena Allergy] 180 mg PO QHS 12/19/17 Fluticasone/Salmeterol [Advair HFA 115-21 mcg Inhaler] 2 puff IH Q12 12/19/17 Furosemide [Lasix 40 mg Tablet] 40 mg PO Q2D 12/19/17 Insulin Aspart [Novolog Flexpen] 0 unit SUBCUT .SLD SCALE 12/19/17 Insulin Detemir [Levemir Flextouch] 12 unit SQ DAILY 12/19/17 Ipratropium/Albuterol Sulfate [Duoneb 3 ml Ampul] 3 ml NEB RTQ6HP PRN 12/19/17 Lansoprazole [Prevacid 30 Mg Odt Tablet] 30 mg PO ACBRKFST 12/19/17 Levothyroxine Sodium [Synthroid] 75 mcg PO Q6AM 12/19/17 Losartan Potassium [Cozaar] 100 mg PO QHS 12/19/17 Loteprednol Etabonate [Lotemax 0.5% Ophth Susp] 1 drop OU BID 12/19/17 Meclizine HCl [Antivert 25 mg Tablet] 25 mg PO DAILYP PRN 12/19/17 Metoprolol Succinate [Toprol Xl] 50 mg PO QAM 12/19/17 Nitroglycerin [Nitrostat 0.4 mg (1/150 Gr) Tabs 25/Bottle] 1 tab SL Q5MP PRN [place]-3 Acid Ethyl Esters [Lovaza 1 gm Capsule] 1 gm PO DAILY 12/19/17 Ondansetron HCl [Zofran 4 mg Tablet] 4 mg PO Q6HP PRN 12/19/17 Oxycodone HCl/Acetaminophen [Percocet 7.5-325 mg Tablet] 1 tab PO Q8HP PRN 12/19 Polyethylene Glycol 3350 [Miralax Powder 17 gm/Packet] 1 packet PO DAILY Ubidecarenone [Coenzyme Q-10] 200 mg PO DAILY 12/19/17 Zinc Sulfate [Zinc-220 Capsule] 220 mg PO BID 12/19/17 Allergies/Adverse Reactions: aspirin [Aspirin] Allergy (Verified 10/18/15 14:53) codeine Allergy (Verified 10/21/17 08:57) erythromycin base [Erythromycin Base] Allergy (Verified 10/18/15 14:53) ibuprofen [From Motrin] Allergy (Verified 10/21/17 08:57) morphine [Morphine] Allergy (Verified 10/18/15 14:53) Sulfa (Sulfonamide Antibiotics) Allergy (Verified 10/18/15 14:53) Review of Systems Review of Systems: As outlined in the HPI, others negative Physical Exam Vital Signs: Temp Pulse Resp BP Pulse Ox 98.6 F 23 H 134/59 H 100 03/14/18 20:18 03/15/18 01:03 03/15/18 00:01 03/15/18 01:02 Additional comments: General appearance: Elderly, well-nourished, alert and cooperative, and appears to be in no acute distress, wearing BiPAP Head: Normocephalic Eyes: PEERL, EOMI, vision is grossly intact. Ears: External auditory canal and tympanic membranes clear, hearing grossly intact. Nose: No nasal discharge. Throat: Oral cavity and pharynx normal. No inflammation, swelling, exudate or lesions. Neck: Neck supple, nontender without lymphadenopathy, masses or thyromegaly. Cardiac: Normal S1 and S2. No S3, S4, systolic murmur. Rhythm is regular. There is 1+ peripheral edema, cyanosis or pallor. Extremities are warm and well perfused. Capillary refill is less than 2 seconds. No carotid bruits. Lungs: Bilateral decreased breath sounds with crackles right more than left, expiratory wheezing, mild diffuse rhonchi, not using accessory muscles. Abdomen: Positive bowel sounds. Soft. Nondistended, nontender. No guarding or rebound. No masses. No hepatosplenomegaly Extremities: No significant deformity or joint abnormality. Peripheral pulses intact. No varicosities. Neurological: Cranial nerves II through XII grossly intact. Moves all 4 extremities Skin: Skin normal color, texture and turgor with no lesions or eruptions, warm and dry. Psychiatric: The mental examination revealed the patient was oriented to person , place, and time. Results Laboratory Results: 03/14/18 03/14/18 03/14/18 21:13 21:13 22:03 WBC 12.6 H RBC 3.62 L Hgb 10.5 L Hct 30.8 L MCV 85 MCH 29.1 MCHC 34.2 RDW 15.2 H Plt Count 389 Seg Neutrophils % 73.0 Lymphocytes % 11.6 L Monocytes % 10.9 Eosinophils % 3.5 Basophils % 1.0 Absolute Neutrophils 9.2 H Absolute Lymphocytes 1.5 Absolute Monocytes 1.4 Absolute Eosinophils 0.4 Absolute Basophils 0.1 VBG pH 7.43 H VBG pCO2 40.2 VBG HCO3 26.3 VBG Base Excess 2.0 Sodium 132.7 L Potassium 5.1 H Chloride 94 L Carbon Dioxide 28 Anion Gap 11 BUN 18 Creatinine 0.65 Est GFR ( Amer) > 60 Est GFR (Non-Af Amer) > 60 Glucose 145 H Calcium 9.5 Magnesium Troponin I NT-Pro-B Natriuret Pep 03/14/18 03/14/18 22:03 22:03 WBC RBC Hgb Hct MCV MCH MCHC RDW Plt Count Seg Neutrophils % Lymphocytes % Monocytes % Eosinophils % Basophils % Absolute Neutrophils Absolute Lymphocytes Absolute Monocytes Absolute Eosinophils Absolute Basophils VBG pH VBG pCO2 VBG HCO3 VBG Base Excess Sodium Potassium Chloride Carbon Dioxide Anion Gap BUN Creatinine Est GFR ( Amer) Est GFR (Non-Af Amer) Glucose Calcium Magnesium 2.0 Troponin I 0.028 NT-Pro-B Natriuret Pep 3650 H Impressions: Chest X-Ray 03/14/18 20:31 IMPRESSION: Mild pulmonary edema and pulmonary vascular congestion. Marked cardiomegaly. Assessment & Plan - Diagnosis (1) Acute and chronic respiratory failure with hypoxia Is this a current diagnosis for this admission?: Yes Plan: Patient is on 1-1/2 L of oxygen at home. When he came to the emergency department she was requiring 2 L oxygen to keep 94% O2 sat. Currently on BiPAP. VBG does not show hypercapnia. (2) Acute on chronic combined systolic and diastolic CHF (congestive heart failure) Is this a current diagnosis for this admission?: Yes Plan: Patient comes with respiratory symptoms, BNP elevated from 1372 3650, chest x- ray with mild pulmonary edema. Patient has received 40 mg of IV Lasix in the ED and we will continue with this medication twice daily. Turner catheter to be placed for strict urinary input and output. Daily weight. Cardiology evaluation for further recommendations. Cardiac markers x3. Place order for a new echocardiogram. (3) COPD (chronic obstructive pulmonary disease) Qualifiers: COPD type: COPD with acute exacerbation Qualified Code(s): J44.1 - Chronic obstructive pulmonary disease with (acute) exacerbation Is this a current diagnosis for this admission?: Yes Plan: Probably with mild exacerbation, as prior assessment, I will initiate the patient on IV steroids IV azithromycin. RT consult. Nebulizer treatments as needed. Continue oxygen protocol. (4) Hypertension Qualifiers: Hypertension type: essential hypertension Qualified Code(s): I10 - Essential (primary) hypertension Is this a current diagnosis for this admission?: Yes Plan: Continue with home antihypertensive medications. (5) Hypothyroidism Is this a current diagnosis for this admission?: Yes Plan: Continue with Synthroid (6) Chronic atrial fibrillation Is this a current diagnosis for this admission?: Yes Plan: Not on anticoagulation, continue with beta-belkis. (7) Diabetes mellitus type 2 in obese Is this a current diagnosis for this admission?: Yes Plan: Continue with insulin and aspart and detemir. Accu-Cheks q. before meals and at bedtime, insulin regular sliding scale and hypoglycemia protocol. (8) Coronary artery disease Is this a current diagnosis for this admission?: Yes Plan: Continue with home medications. - Time Time Spent: 30 to 50 Minutes - Inpatient Certification Based on my medical assessment, after consideration of the patient's comorbidities, presenting symptoms, or acuity I expect that the services needed warrant INPATIENT care.: Yes I certify that my determination is in accordance with my understanding of Medicare's requirements for reasonable and necessary INPATIENT services [42 CFR 412.3e].: Yes Medical Necessity: Risk of Complication if Not Cared For in Hospital
[2018-03-15 04:35] LABS: ABSOLUTE BASOPHILS # (AUTO) 0.1 10^3/uL (0.0-0.2); ABSOLUTE EOSINOPHILS # (AUTO) 0.2 10^3/uL (0.0-0.6); ABSOLUTE LYMPHOCYTES (AUTO) 1.6 10^3/uL (0.5-4.7); ABSOLUTE MONOCYTES (AUTO) 1.1 10^3/uL (0.1-1.4); ABSOLUTE NEUT (AUTO) 7.8 10^3/uL (1.7-8.2); BASOPHILS % (AUTO) 0.6 % (0-2); EOSINOPHILS % (AUTO) 1.9 % (0-6); HEMATOCRIT 28.6 % (36.0-47.0); HEMOGLOBIN 9.6 g/dL (12.0-15.5); LYMPHOCYTES % (AUTO) 15.1 % (13-45); MEAN CORPUSCULAR HEMOGLOBIN 28.7 pg (27.0-33.4); MEAN CORPUSCULAR HGB CONC 33.6 g/dL (32.0-36.0); MEAN CORPUSCULAR VOLUME 86 fl (80-97); MONOCYTES % (AUTO) 10.3 % (3-13); PLATELET COUNT 334 10^3/uL (150-450); RED BLOOD COUNT 3.34 10^6/uL (3.72-5.28); SEGMENTED NEUTROPHILS % (AUTO) 72.1 % (42-78); TOTAL CELLS COUNTED % (AUTO) 100 %; WHITE BLOOD COUNT 10.8 10^3/uL (4.0-10.5)
[2018-03-15 04:54] LABS: ANION GAP 12 (5-19); BLOOD UREA NITROGEN 17 mg/dL (7-20); CALCIUM 9.2 mg/dL (8.4-10.2); CARBON DIOXIDE 28 mmol/L (22-30); CHLORIDE 94 mmol/L (98-107); GLUCOSE 133 mg/dL (75-110); POTASSIUM 4.6 mmol/L (3.6-5.0); SODIUM 134.3 mmol/L (137-145)
[2018-03-15] MEDS: LEVOTHYROXINE SODIUM 0.075 MG TABLET PO SCH (05:52)
[2018-03-15] MEDS: METHYLPREDNISOLONE INJ 40 MG/1 ML SDV IV SCH ×3 (05:52→21:34)
[2018-03-15] MEDS: METOPROLOL SUCCINATE 50 MG TAB.SR.24H PO SCH (08:28)
[2018-03-15] MEDS: LANSOPRAZOLE 30 MG TAB.RAP.DR PO SCH (08:43)
[2018-03-15] MEDS: ZINC SULFATE 220 MG CAPSULE PO SCH ×2 (09:46→17:20)
[2018-03-15] MEDS: FUROSEMIDE 40 MG TABLET PO SCH ×2 (09:47→17:20)
[2018-03-15] MEDS: CLOPIDOGREL BISULFATE 75 MG TABLET PO SCH (09:48)
[2018-03-15] MEDS: ENOXAPARIN SODIUM INJ 40 MG/0.4 ML DISP.SYRIN SUBCUT SCH (09:49)
[2018-03-15] MEDS: FERROUS SULFATE 325 MG TABLET PO SCH ×2 (09:49→17:20)
[2018-03-15] MEDS: POLYETHYLENE GLYCOL 3350 POWDER 17 GM/1 PACKET PO SCH (09:50)
[2018-03-15] MEDS: INSULIN DETEMIR 100 UNIT/ML 3 ML PEN SUBCUT SCH (09:51)
[2018-03-15] MEDS: CALCIUM CARBONATE 250 MG/VITAMIN D3 125 UNIT TABLET PO SCH ×2 (09:52→10:11)
[2018-03-15] MEDS: OMEGA-3 ACID ETHYL ESTERS 1 GM CAPSULE PO SCH (09:52)
[2018-03-15] MEDS ORDERED: (PENDING PHARMACY ID) (Fluticasone/Salmeterol [Advair Hfa 115-21 Mcg Inhaler] 2 PUFF) IH SCH (10:00)
[2018-03-15] MEDS ORDERED: (PENDING PHARMACY ID) (Loteprednol Etabonate [Lotemax 0.5% Ophth Susp] 1 DROP) OU SCH (10:00)
[2018-03-15] MEDS ORDERED: DOXYCYCLINE HYCLATE INJ 100 MG VIAL IV SCH (10:00)
[2018-03-15] MEDS: DOXYCYCLINE HYCLATE 100 MG in DEXTROSE 5%-WATER 250 ML IV SCH ×2 (11:00→21:34)
[2018-03-15] MEDS: ALPRAZOLAM 0.5 MG TABLET PO SCH (11:00)
--- NOTE | 2018-03-15 12:25 | PDOC PROGRESS REPORT ---
Subjective Progress Note for:: 03/15/18 Subjective:: No acute events overnight. Patient has been on 3 L saturating 100%. Patient is in bed resting however she looks very frail. Does not seem to be in any acute distress. Patient denies any fever, chills, nausea, vomiting, diarrhea, chest pain or any urinary symptoms. Reason For Visit: CONGESTIVE HEART FAILURE Physical Exam Vital Signs: Temp Pulse Resp BP Pulse Ox 98.7 F 93 20 132/71 H 100 03/15/18 07:10 03/15/18 07:10 03/15/18 07:10 03/15/18 07:10 03/15/18 07:10 Intake & Output 03/14/18 03/15/18 03/16/18 06:59 06:59 06:59 Output Total 300 Balance -300 Weight 67.2 kg General appearance: PRESENT: no acute distress, well-developed, well-nourished Respiratory exam: PRESENT: crackles, decreased breath sounds, prolonged expiratory phas Cardiovascular exam: PRESENT: RRR. ABSENT: diastolic murmur, rubs, systolic murmur Vascular exam: PRESENT: normal capillary refill GI/Abdominal exam: PRESENT: normal bowel sounds, soft. ABSENT: distended, guarding, mass, organolmegaly, rebound, tenderness Extremities exam: PRESENT: +1 edema Neurological exam: PRESENT: alert, awake, CN II-XII grossly intact. ABSENT: motor sensory deficit Results Laboratory Results: 03/15/18 04:23 03/15/18 04:23 03/15/18 03/15/18 04:23 04:23 WBC 10.8 H RBC 3.34 L Hgb 9.6 L Hct 28.6 L MCV 86 MCH 28.7 MCHC 33.6 RDW 14.0 Plt Count 334 Seg Neutrophils % 72.1 Lymphocytes % 15.1 Monocytes % 10.3 Eosinophils % 1.9 Basophils % 0.6 Absolute Neutrophils 7.8 Absolute Lymphocytes 1.6 Absolute Monocytes 1.1 Absolute Eosinophils 0.2 Absolute Basophils 0.1 Sodium 134.3 L Potassium 4.6 Chloride 94 L Carbon Dioxide 28 Anion Gap 12 BUN 17 Creatinine 0.64 Est GFR ( Amer) > 60 Est GFR (Non-Af Amer) > 60 Glucose 133 H Calcium 9.2 03/15/18 03/15/18 04:23 10:33 Troponin I 0.033 0.027 Impressions: Chest X-Ray 03/14/18 20:31 IMPRESSION: Mild pulmonary edema and pulmonary vascular congestion. Marked cardiomegaly. Assessment & Plan - Diagnosis (1) Acute and chronic respiratory failure with hypoxia Is this a current diagnosis for this admission?: Yes Plan: Saturating 100% on 3 L. VBG negative for hypercarbia. Uses home oxygen 2 L. Continue nebs, and BiPAP. (2) Acute exacerbation of CHF (congestive heart failure) Qualifiers: Heart failure type: combined systolic and diastolic Qualified Code(s): I50.43 - Acute on chronic combined systolic (congestive) and diastolic ( congestive) heart failure Is this a current diagnosis for this admission?: Yes Plan: Combined systolic and diastolic. Elevated BNP on admission. Chest x-ray positive for pulmonary congestion and edema. Received dose of IV Lasix in ED. Strict in and out, daily weight, volume restriction. Monitor volume status. Continue diuretics guided by her vitals. Cardiology following. (3) Chronic atrial fibrillation Is this a current diagnosis for this admission?: Yes Plan: Not on anticoagulation. Continue beta-blockers. Rate controlled. (4) Coronary artery disease Is this a current diagnosis for this admission?: Yes Plan: Continue antiplatelets, beta blockers, YVONNE inhibitor, and statin. Cardiology following. (5) Diabetes mellitus type 2 in obese Is this a current diagnosis for this admission?: Yes Plan: Continue Levemir, sliding scale insulin. Adjust insulin dosage as needed. Diabetic diet. (6) COPD (chronic obstructive pulmonary disease) Qualifiers: COPD type: COPD with acute exacerbation Qualified Code(s): J44.1 - Chronic obstructive pulmonary disease with (acute) exacerbation Is this a current diagnosis for this admission?: Yes Plan: Continue nightly BiPAP, nebs as needed, oxygen protocol, steroids. (7) Hypertension Qualifiers: Hypertension type: essential hypertension Qualified Code(s): I10 - Essential (primary) hypertension Is this a current diagnosis for this admission?: Yes Plan: Continue home meds. Monitor vitals adjust home meds guided by her vitals. (8) Hypothyroidism Is this a current diagnosis for this admission?: Yes Plan: Restart home meds.
[2018-03-15 16:05] LABS: APPEARANCE,URINE CLEAR; BILIRUBIN,URINE NEGATIVE (NEGATIVE); COLOR,URINE LIGHT YELLOW; GLUCOSE, URINE NEGATIVE (NEGATIVE); KETONES,URINE NEGATIVE (NEGATIVE); LEUKOCYTE ESTERASE,URINE LARGE (NEGATIVE); NITRITE,URINE NEGATIVE (NEGATIVE); PROTEIN,URINE NEGATIVE (NEGATIVE); URINE SPECIFIC GRAVITY 1.007; UROBILINOGEN,URINE NEGATIVE mg/dL (<2.0)
[2018-03-15 16:06] LABS: ADD MANUAL MICROSCOPIC YES; BACTERIA,URINE 4+ /HPF; WBC,URINE >100 /HPF
[2018-03-15] MEDS: INSULIN LISPRO 100 UNIT/ML 3 ML VIAL SUBCUT PRN (17:18)
[2018-03-15] MEDS: ATORVASTATIN CALCIUM 20 MG TABLET PO SCH (17:19)
[2018-03-15] MEDS: AMLODIPINE BESYLATE 5 MG TABLET PO SCH (21:30)
[2018-03-15] MEDS: LORATADINE 10 MG TABLET PO SCH (21:33)
[2018-03-15] MEDS: LOSARTAN POTASSIUM 50 MG TABLET PO SCH (21:53)
[2018-03-15] MEDS: MECLIZINE HCL 25 MG TABLET PO PRN (21:54)
[2018-03-16] MEDS: INSULIN LISPRO 100 UNIT/ML 3 ML VIAL SUBCUT PRN ×2 (00:26→12:28)
[2018-03-16 02:51] LABS: ABSOLUTE LYMPHOCYTES (AUTO) 0.7 10^3/uL (0.5-4.7); ABSOLUTE MONOCYTES (AUTO) 0.1 10^3/uL (0.1-1.4); ABSOLUTE NEUT (AUTO) 3.8 10^3/uL (1.7-8.2); BASOPHILS % (AUTO) 0.2 % (0-2); HEMATOCRIT 30.1 % (36.0-47.0); HEMOGLOBIN 10.3 g/dL (12.0-15.5); LYMPHOCYTES % (AUTO) 15.6 % (13-45); MEAN CORPUSCULAR HEMOGLOBIN 28.8 pg (27.0-33.4); MEAN CORPUSCULAR HGB CONC 34.3 g/dL (32.0-36.0); MEAN CORPUSCULAR VOLUME 84 fl (80-97); MONOCYTES % (AUTO) 3.1 % (3-13); PLATELET COUNT 334 10^3/uL (150-450); RED BLOOD COUNT 3.58 10^6/uL (3.72-5.28); RED CELL DISTRIBUTION WIDTH 14.2 % (11.5-14.0); SEGMENTED NEUTROPHILS % (AUTO) 81.1 % (42-78); TOTAL CELLS COUNTED % (AUTO) 100 %; WHITE BLOOD COUNT 4.6 10^3/uL (4.0-10.5)
[2018-03-16 03:22] LABS: ALANINE AMINOTRANSFERASE 18 U/L (9-52); ALBUMIN 3.6 g/dL (3.5-5.0); ALKALINE PHOSPHATASE 106 U/L (38-126); ANION GAP 10 (5-19); ASPARTATE AMINO TRANSFERASE 21 U/L (14-36); BILIRUBIN,DIRECT 0.5 mg/dL (0.0-0.4); BILIRUBIN,TOTAL 0.5 mg/dL (0.2-1.3); BLOOD UREA NITROGEN 25 mg/dL (7-20); CALCIUM 9.5 mg/dL (8.4-10.2); CARBON DIOXIDE 30 mmol/L (22-30); CHLORIDE 95 mmol/L (98-107); GLUCOSE 171 mg/dL (75-110); POTASSIUM 4.2 mmol/L (3.6-5.0); SODIUM 135.1 mmol/L (137-145); TOTAL PROTEIN 7.2 g/dL (6.3-8.2)
[2018-03-16 03:32] LABS: CREATINE KINASE MB 0.69 ng/mL (<4.55); TROPONIN I 0.013 ng/mL
[2018-03-16] MEDS: METHYLPREDNISOLONE INJ 40 MG/1 ML SDV IV SCH (05:51)
[2018-03-16] MEDS: LEVOTHYROXINE SODIUM 0.075 MG TABLET PO SCH (05:51)
[2018-03-16] MEDS: METOPROLOL SUCCINATE 50 MG TAB.SR.24H PO SCH (07:30)
[2018-03-16] MEDS: LANSOPRAZOLE 30 MG TAB.RAP.DR PO SCH (07:30)
[2018-03-16] MEDS: OXYCODONE HCL IR 5 MG TABLET PO PRN ×2 (08:02→21:03)
[2018-03-16] MEDS: OXYCODONE-ACETAMINOPHEN 5-325 MG TABLET PO PRN ×2 (08:04→21:02)
--- NOTE | 2018-03-16 08:15 | EKG REPORT ---
SEVERITY:- ABNORMAL ECG - SINUS RHYTHM MULTIPLE ATRIAL PREMATURE COMPLEXES FIRST DEGREE AV BLOCK PROBABLE LEFT ATRIAL ABNORMALITY LEFT BUNDLE BRANCH BLOCK : Confirmed by: Emily Bullard MD 16-Mar-2018 08:14:45
[2018-03-16 09:34] LABS: CREATINE KINASE MB 0.82 ng/mL (<4.55)
[2018-03-16 09:40] LABS: TROPONIN I < 0.012 ng/mL
[2018-03-16] MEDS: ENOXAPARIN SODIUM INJ 40 MG/0.4 ML DISP.SYRIN SUBCUT SCH (11:08)
[2018-03-16] MEDS: CLOPIDOGREL BISULFATE 75 MG TABLET PO SCH (11:08)
[2018-03-16] MEDS: OMEGA-3 ACID ETHYL ESTERS 1 GM CAPSULE PO SCH (11:08)
[2018-03-16] MEDS: CALCIUM CARBONATE 250 MG/VITAMIN D3 125 UNIT TABLET PO SCH (11:08)
[2018-03-16] MEDS: FUROSEMIDE 40 MG TABLET PO SCH ×2 (11:08→17:11)
[2018-03-16] MEDS: POLYETHYLENE GLYCOL 3350 POWDER 17 GM/1 PACKET PO SCH (11:09)
[2018-03-16] MEDS: FERROUS SULFATE 325 MG TABLET PO SCH ×2 (11:09→17:10)
[2018-03-16] MEDS: ALPRAZOLAM 0.5 MG TABLET PO SCH (11:09)
[2018-03-16] MEDS: ZINC SULFATE 220 MG CAPSULE PO SCH ×2 (11:09→17:10)
[2018-03-16] MEDS: INSULIN DETEMIR 100 UNIT/ML 3 ML PEN SUBCUT SCH (11:10)
[2018-03-16] MEDS: DOXYCYCLINE HYCLATE 100 MG in DEXTROSE 5%-WATER 250 ML IV SCH ×2 (11:11→21:00)
--- NOTE | 2018-03-16 13:17 | PDOC PROGRESS REPORT ---
Subjective Progress Note for:: 03/16/18 Subjective:: Assumed care today. Ms. Antunez is an 82 yr old with a past medical history of combined systolic and diastolic heart failure, atrial fibrillation not on chronic anticoagulation, coronary artery disease, hypertension and hypothyroidism who was admitted for acute CHF exacerbation. Acute event overnight. Patient is more awake and alert this morning upon encounter. She is very coherent and denies acute complaints. She has not ambulated yet. She denies chest pain. She says she continues to have shortness of breath but this has slightly improved since admission. She is on 1.5L of oxygen at home. Reason For Visit: CONGESTIVE HEART FAILURE Physical Exam Vital Signs: Temp Pulse Resp BP Pulse Ox 97.3 F 77 16 137/64 H 100 03/16/18 07:06 03/16/18 07:06 03/16/18 07:06 03/16/18 07:06 03/16/18 07:06 Intake & Output 03/15/18 03/16/18 03/17/18 06:59 06:59 06:59 Intake Total 611 Output Total 300 1400 Balance -300 -789 Weight 148 lb 2.41 oz 150 lb 9.211 oz General appearance: PRESENT: no acute distress, well-developed, well-nourished Head exam: PRESENT: atraumatic, normocephalic Eye exam: PRESENT: conjunctiva pink, EOMI, PERRLA. ABSENT: scleral icterus Ear exam: PRESENT: normal external ear exam Mouth exam: PRESENT: moist, tongue midline Neck exam: ABSENT: carotid bruit, JVD, lymphadenopathy, thyromegaly Respiratory exam: PRESENT: clear to auscultation douglas, rales. ABSENT: rhonchi, wheezes Cardiovascular exam: PRESENT: RRR, systolic murmur. ABSENT: diastolic murmur, rubs Pulses: PRESENT: normal dorsalis pedis pul GI/Abdominal exam: PRESENT: normal bowel sounds, soft. ABSENT: distended, guarding, mass, organolmegaly, rebound, tenderness Rectal exam: PRESENT: deferred Neurological exam: PRESENT: alert, awake, oriented to person, oriented to place , oriented to time, oriented to situation, CN II-XII grossly intact. ABSENT: motor sensory deficit Results Laboratory Results: 03/16/18 02:43 03/16/18 02:43 03/15/18 03/16/1803/16/18 15:04 02:43 02:43 WBC 4.6 RBC 3.58 L Hgb 10.3 L Hct 30.1 L MCV 84 MCH 28.8 MCHC 34.3 RDW 14.2 H Plt Count 334 Seg Neutrophils % 81.1 H Lymphocytes % 15.6 Monocytes % 3.1 Eosinophils % 0.0 Basophils % 0.2 Absolute Neutrophils 3.8 Absolute Lymphocytes 0.7 Absolute Monocytes 0.1 Absolute Eosinophils 0.0 Absolute Basophils 0.0 Sodium 135.1 L Potassium 4.2 Chloride 95 L Carbon Dioxide 30 Anion Gap 10 BUN 25 H Creatinine 0.57 Est GFR ( Amer) > 60 Est GFR (Non-Af Amer) > 60 Glucose 171 H Calcium 9.5 Total Bilirubin 0.5 AST 21 ALT 18 Alkaline Phosphatase 106 Total Protein 7.2 Albumin 3.6 Urine Color LIGHT YELLOW Urine Appearance CLEAR Urine pH 6.0 Ur Specific [place] 1.007 Urine Protein NEGATIVE Urine Glucose (UA) NEGATIVE Urine Ketones NEGATIVE Urine Blood NEGATIVE Urine Nitrite NEGATIVE Ur Leukocyte Esterase LARGE H Ur Squamous Epith Cells FEW 03/15/18 03/15/18 03/15/18 04:23 10:33 16:02 Creatine Kinase CK-MB (CK-2) Troponin I 0.033 0.027 0.016 03/16/18 03/16/18 03/16/18 02:43 02:43 08:18 Creatine Kinase < 20 L < 20 L CK-MB (CK-2) 0.69 Troponin I 0.013 03/16/18 08:18 Creatine Kinase CK-MB (CK-2) 0.82 Troponin I < 0.012 Impressions: Chest X-Ray 03/14/18 20:31 IMPRESSION: Mild pulmonary edema and pulmonary vascular congestion. Marked cardiomegaly. Assessment & Plan - Diagnosis (1) Acute and chronic respiratory failure with hypoxia Is this a current diagnosis for this admission?: Yes Plan: Secondary to CHF exacerbation. She is on 1.5L of oxygen at home. Currently at 3L. Will wean down on home O2 requirement. (2) Acute exacerbation of CHF (congestive heart failure) Qualifiers: Heart failure type: combined systolic and diastolic Qualified Code(s): I50.43 - Acute on chronic combined systolic (congestive) and diastolic ( congestive) heart failure Is this a current diagnosis for this admission?: Yes Plan: Improving. Chest x-ray upon presentation showed pulmonary congestion/edema. She did get IV lasix. Continue Lasix 40 mg bid. Continue I&Os. (3) COPD (chronic obstructive pulmonary disease) Qualifiers: COPD type: COPD with acute exacerbation Qualified Code(s): J44.1 - Chronic obstructive pulmonary disease with (acute) exacerbation Is this a current diagnosis for this admission?: Yes Plan: Continue breathing treatments. Switch IV Solu-Medrol to prednisone p.o. (4) Dysphagia Is this a current diagnosis for this admission?: Yes Plan: Patient underwent a modified swallow evaluation this morning and speech recommendation for diet include thick liquids and mechanical soft diet. (5) Aortic stenosis Is this a current diagnosis for this admission?: Yes Plan: She has had valvuloplasty of the aortic valve stenosis x2. She is deemed high risk for percutaneous transcatheter aortic valve replacement. [TAVR]. Patient had a second aortic valvuloplasty due to restenosis in August 2017 had a cardiac catheterization which showed no significant blockages of the coronary arteries with patent stents in the LAD, left circumflex, and the RCA. Her October 2017 echocardiogram shows normal left ventricle systolic function, with LV diastolic dysfunction, moderate mitral regurgitation and moderate aortic stenosis. (6) Chronic atrial fibrillation Is this a current diagnosis for this admission?: Yes Plan: EKG shows chronic left bundle branch block pattern. Continue beta belkis. - Time Time Spent with patient: 25-34 minutes
--- NOTE | 2018-03-16 14:46 | RADIOLOGY REPORT (SQ) ---
EXAM DESCRIPTION: NEETA SWALLOW COMPLETED DATE/TIME: 03/16/2018 10:01 am REASON FOR STUDY: hx of asp. pneumonia cough, shortness of breath, recurrent pneumonia COMPARISON: None. TECHNIQUE: Videofluoroscopic swallowing examination was performed in conjunction with speech patholo gy. Videofluoroscopic imaging was obtained and reviewed and these are the findings: RADIATION DOSE: Fluoro time 1.36 minutes 1 images saved to PACS. LIMITATIONS: None FINDINGS: The patient was brought into the fluoro room and placed upright on a modified barium swall ow chair. The patient was then given multiple consistencies mixed with barium to swallow under live fluoroscopic video guidance. According to the Speech Pathologist there was laryngeal penetration wit h trace aspiration seen with thin barium. All other consistencies were swallowed without incident. P marcelloase refer to the speech pathology report for further details. IMPRESSION: LARYNGEAL PENETRATION WITH TRACE ASPIRATION SEEN WITH THIN BARIUM.PLEASE SEE SPEECH PATH OLOGIST REPORT FOR OTHER FINDINGS AND RECOMMENDATIONS. COMMENT: None Quality ID [id number]: Final reports for procedures using fluoroscopy that document radiation exposure geeta juancarlos, or exposure time and number of fluorographic images (if radiation exposure indices are not avail able) TECHNICAL DOCUMENTATION: JOB ID: [id number] [employer]- All Rights Reserved Reading location - IP/workstation name: [email or web address] [id number]
--- NOTE | 2018-03-16 15:10 | RADIOLOGY REPORT (SQ) ---
EXAM DESCRIPTION: CHEST SINGLE VIEW COMPLETED DATE/TIME: 03/16/2018 2:21 pm REASON FOR STUDY: congestion COMPARISON: 03/14/2018. NUMBER OF VIEWS: One view. TECHNIQUE: Single frontal radiographic view of the chest acquired. LIMITATIONS: None. FINDINGS: LUNGS AND PLEURA: No opacities, masses or pneumothorax. No pleural effusion. MEDIASTINUM AND HILAR STRUCTURES: No masses. Contour normal. HEART AND VASCULAR STRUCTURES: Heart enlarged without failure. Normal vasculature. BONES: No acute findings. Degenerative changes in the shoulders. HARDWARE: None in the chest. Hardware in the cervical spine. OTHER: No other significant finding. IMPRESSION: HEART ENLARGED WITHOUT FAILURE. NO OTHER SIGNIFICANT RADIOGRAPHIC FINDING IN THE CHEST. TECHNICAL DOCUMENTATION: JOB ID: [id number] [employer]- All Rights Reserved Reading location - IP/workstation name: [email or web address]
[2018-03-16 15:12] LABS: CREATINE KINASE MB 0.71 ng/mL (<4.55); TROPONIN I 0.013 ng/mL
--- NOTE | 2018-03-16 15:51 | ST Inp Modified Barium Swallow ---
Medical Diagnosis - Medical Diagnoses Medical Diagnosis Description & ICD-10 Code(s): acute and chronic respiratory failure with hypoxia, dysphagia R13.10 ST Inpatient MBS - General Date: 03/16/18 - History History Obtained From: Spouse, Other - EMR -: Medical - per EMR: patient admitted 03/14/18 due to shortness of breath. Patient has history of chronic systolic and diastolic CHF, frequent pneumonia, recent hospitalization with multiple intubations. Spouse reports MBSS completed in October, report from 10/26/17 shows no aspiration at that time, but flash penetration of thin liquids. Medications: Medications Reviewed Allergies: Refer to medical record - Subjective Current Nutritional Means: PO Current PO Diet: Regular - full liquid diet Current Symptoms: Hx of asp. pneumonia Pain: Patient reports, 0/5 - Objective Assessment: Upright, Left Lateral - Food Trials Food Trials Used: Thin liquids, [place] thick liquids, Pureed, Regular The Patient: Was Able to Self Feed - Assessment Labial Function: Within Normal Limits Lingual Function: Within Normal Limits - Pharyngeal Stage Initiation of Pharyngeal Stage: Delayed Reflex Delay Time (seconds): 2 Decreased Laryngeal Elevation: No Reduced Velo-Pharyngeal Closure: no Reduced Pressure Generation: No Reduced Tongue Base Retraction: No Pre-Swallowing Pooling in Valleculae: Mild Pre-Swallowing Pooling in Pyriforms: Moderate Reduced Thyro-Hyiod Approximation: No Reduced Epiglottic Excursion: No Reduced Pharyngeal Peristalsis: No Post Swallow Residuals in Valleculae: None Post Swallow Residuals in Pyriforms: None - Impression/Summary Tracheal Aspiration: yes - with thin liquids only, delayed cough Patient Presents With: Pharyngeal stage dysph., Mild-Moderate Risk of Aspiration: Moderate Risk Due To: Delayed swallow reflex, resulting in aspiration of thin liquids. - Recommendations Solid Diet Recommendations: Mechanical Soft, Chopped Meat Liquid Diet Recommendations: [place]-Thick Strict Aspitarion Precautions: Yes Dysphagia Therapy with BOX BUILDER: Yes, Home Health Recommended Techniques: Fully Upright During Meal, Small Bites and Sips Other Recommendations: Speech therapy to follow for dysphagia treatment to address pharyngeal timing and airway closure. - Time Total Time: 30 Total Timed Minutes: 30
[2018-03-16] MEDS: PREDNISONE 20 MG TABLET PO SCH (17:10)
[2018-03-16] MEDS: ATORVASTATIN CALCIUM 20 MG TABLET PO SCH (17:10)
--- NOTE | 2018-03-16 17:56 | XCELERA REPORT ---
[address] [address] Transthoracic Echocardiogram Report Name: FARHEEN AGUILAR Age: 82 yrs Gender: Female : 1935 Patient Status: Inpatient Patient Location: [address] [place], [place] [address] Study Date: 03/16/2018 11:35 AM Height: 61 in Weight: 150 lb BSA: 1.7 m2 Procedure: A complete two-dimensional transthoracic echocardiogram was performed (2D, M-mode, spectral and color flow Doppler). The study was technically difficult with many images being suboptimal in quality. Reason For Study: CHF, Elevated Tropoins Ordering Physician: JENNIFER HARRIS Performed By: Kathryn Romero Interpretation Summary There is mild concentric left ventricular hypertrophy. Left ventricular systolic function is borderline reduced. The left ventricle is grossly normal size. Doppler measurements suggest pseudonormalized left ventricular relaxation, which is associated with grade II/IV or mild to moderate diastolic dysfunction Regional wall motion abnormalities cannot be excluded due to limited visualization. The right ventricle is grossly normal size. The right ventricular systolic function is normal. The right atrium is normal in size The left atrium is mildly dilated. There is a moderate amount of mitral regurgitation There is no mitral valve stenosis. There is moderate to severe aortic stenosis There is a peak gradient of 75, mean 45 mm of Hg. There is a moderate amount of aortic regurgitation There is a mild amount of tricuspid regurgitation There is mild pulmonary hypertension by echo Right ventricular systolic pressure is estimated to be elevated at 40-50mmHg. The aortic root is not well visualized but is probably normal size. The inferior vena cava appeared normal and decreased > 50% with respiration (RAP 5-10 mmHg) There is no pericardial effusion. MMode/2D Measurements & Calculations RVDd: 2.0 cm LVIDd: 5.2 cm FS: 29.4 % Ao root diam: 2.6 cm IVSd: 1.4 cm LVIDs: 3.7 cm EDV(Teich): 131.3 ml Ao root area: 5.4 cm2 LVPWd: 1.3 cm ESV(Teich): 57.8 ml LA dimension: 3.9 cm EF(Teich): 56.0 % LVOT diam: 2.1 cm LVOT area: 3.3 cm2 Doppler Measurements & Calculations MV E max radha: MV P1/2t max radha: Ao V2 max: AI max radha: 148.6 cm/sec 148.6 cm/sec 443.9 cm/sec 426.8 cm/sec MV A max radha: MV P1/2t: 65.1 msec Ao max PG: AI max P.6 cm/sec MVA(P1/2t): 3.4 cm2 78.8 mmHg 72.9 mmHg MV E/A: 1.0 MV dec slope: Ao V2 mean: AI dec slope: 316.3 cm/sec 174.7 cm/sec2 668.8 cm/sec2 Ao mean PG: AI P1/2t: MV dec time: 0.21 sec46.0 mmHg 715.7 msec Ao V2 VTI: 116.7 cm DAYANARA(I,D): 0.70 cm2 DAYANARA(V,D): 0.76 cm2 LV V1 max PG: SV(LVOT): 81.7 ml PA V2 max: TR max radha: 4.1 mmHg 80.5 cm/sec 275.5 cm/sec LV V1 mean PG: PA max PG: TR max P.4 mmHg 2.6 mmHg 30.4 mmHg LV V1 max: 101.7 cm/sec LV V1 mean: 71.0 cm/sec LV V1 VTI: 24.5 cm AV P1/2t-pr_phl: MV P1/2t-pr_phl: 715.7 msec 65.1 msec Left Ventricle The left ventricle is grossly normal size. There is mild concentric left ventricular hypertrophy. Left ventricular systolic function is borderline reduced. Doppler measurements suggest pseudonormalized left ventricular relaxation, which is associated with grade II/IV or mild to moderate diastolic dysfunction. Regional wall motion abnormalities cannot be excluded due to limited visualization. Right Ventricle The right ventricle is grossly normal size. The right ventricular systolic function is normal. Atria The right atrium is normal in size. The left atrium is mildly dilated. Interarterial septum not well visualized and not well dopplered. Cannot comment on ASD/PFO presence. Mitral Valve There is mild mitral leaflet calcification. There is mild mitral annular calcification. There is no mitral valve stenosis. There is a moderate amount of mitral regurgitation. Aortic Valve The aortic valve is moderately calcified. There is moderate to severe aortic stenosis. There is a peak gradient of 75, mean 45 mm of Hg. There is a moderate amount of aortic regurgitation. Tricuspid Valve The tricuspid valve is not well visualized, but is grossly normal. There is no tricuspid stenosis. There is a mild amount of tricuspid regurgitation. There is mild pulmonary hypertension by echo. Right ventricular systolic pressure is estimated to be elevated at 40-50mmHg. Pulmonic Valve The pulmonic valve is not well visualized. Great Vessels The aortic root is not well visualized but is probably normal size. The inferior vena cava appeared normal and decreased > 50% with respiration (RAP 5-10 mmHg). Effusions There is no pericardial effusion. : JENNIFER HARRIS > Francisco J Ferrer
--- NOTE | 2018-03-16 18:03 | PDOC PROGRESS REPORT ---
Subjective Progress Note for:: 03/16/18 Subjective:: Patient seems to be doing better with gradual improvement. Pt is denying any chest arm or neck discomfort. Patient denying any PND, orthopnea. Patient denied any sustained palpitations, dizziness, syncope, near syncope. Patient denying any fever chills. Patient denying any other significant discomfort. Patient is maintaining sinus rhythm. Intermittent Mobitz type I block noted. Review of systems: Rest review of systems negative. Medications: Medications have been reviewed. Reason For Visit: CONGESTIVE HEART FAILURE Physical Exam Vital Signs: Temp Pulse Resp BP Pulse Ox 98.4 F 78 16 108/47 L 100 03/16/18 15:08 03/16/18 15:08 03/16/18 15:08 03/16/18 15:08 03/16/18 15:08 Intake & Output 03/15/18 03/16/18 03/17/18 06:59 06:59 06:59 Intake Total 611 750 Output Total 300 1400 150 Balance -300 -789 600 Weight 67.2 kg 68.3 kg Exam: GENERAL: well-nourished and in no acute distress. Alert and oriented x3 HEAD: Atraumatic, normocephalic. EYES: Pupils equal round and reactive to light, extraocular movements intact, sclera anicteric, conjunctiva are normal. ENT: TMs normal, nares patent, oropharynx clear without exudates. Moist mucous membranes. No oral ulcerations or bleeding gums noted NECK: supple without lymphadenopathy. Trachea is central. No cervical or axillary lymphadenopathy noted. Carotids are 2+, JVD WNL LUNGS: Respiration seems nonlabored, no significant accessory muscle action noted. Breath sounds clear to auscultation bilaterally and equal noted. No wheezes rales or rhonchi noted. No significant dullness noted on percussion. CHEST: Palpation of the chest wall shows no significant chest wall tenderness. HEART: [place] [employer], No PSH, 3/6 DIYA aortic area, 1-2/6 jay systolic murmur mitral area, no rubs, no gallops. ABDOMEN: Soft, no significant tenderness appreciated, normoactive bowel sounds. No guarding, no rebound. No rigidity noted . No masses appreciated. EXTREMITIES: Pedal pulses are 1-2+, no calf tenderness noted. No clubbing or cyanosis. negative pedal edema noted NEUROLOGICAL: Focused neurological exam showed left-sided hemiparesis.Left- sided hemiparesis. PSYCH: This could not be properly assessed SKIN: No significant ecchymosis, skin is noted to be warm. MUSCULOSKELETAL EXAM: No significant acute joint swelling noted. Results Laboratory Results: 03/16/18 02:43 03/16/18 02:43 03/16/18 03/16/18 02:43 02:43 WBC 4.6 RBC 3.58 L Hgb 10.3 L Hct 30.1 L MCV 84 MCH 28.8 MCHC 34.3 RDW 14.2 H Plt Count 334 Seg Neutrophils % 81.1 H Lymphocytes % 15.6 Monocytes % 3.1 Eosinophils % 0.0 Basophils % 0.2 Absolute Neutrophils 3.8 Absolute Lymphocytes 0.7 Absolute Monocytes 0.1 Absolute Eosinophils 0.0 Absolute Basophils 0.0 Sodium 135.1 L Potassium 4.2 Chloride 95 L Carbon Dioxide 30 Anion Gap 10 BUN 25 H Creatinine 0.57 Est GFR ( Amer) > 60 Est GFR (Non-Af Amer) > 60 Glucose 171 H Calcium 9.5 Total Bilirubin 0.5 AST 21 ALT 18 Alkaline Phosphatase 106 Total Protein 7.2 Albumin 3.6 03/15/18 03/15/18 03/15/18 04:23 10:33 16:02 Creatine Kinase CK-MB (CK-2) Troponin I 0.033 0.027 0.016 03/16/18 03/16/18 03/16/18 02:43 02:43 08:18 Creatine Kinase < 20 L < 20 L CK-MB (CK-2) 0.69 Troponin I 0.013 03/16/18 03/16/18 03/16/18 08:18 14:21 14:21 Creatine Kinase < 20 L CK-MB (CK-2) 0.82 0.71 Troponin I < 0.012 0.013 EKG Comments: Shows sinus rhythm with Mobitz type I intermittent heart block Impressions: Chest X-Ray 03/16/18 00:00 IMPRESSION: HEART ENLARGED WITHOUT FAILURE. NO OTHER SIGNIFICANT RADIOGRAPHIC FINDING IN THE CHEST. Modified Barium Swallow 03/16/18 00:00 IMPRESSION: LARYNGEAL PENETRATION WITH TRACE ASPIRATION SEEN WITH THIN BARIUM.PLEASE SEE SPEECH PATHOLOGIST REPORT FOR OTHER FINDINGS AND RECOMMENDATIONS. Assessment & Plan - Diagnosis (1) CHF (congestive heart failure) Qualifiers: Heart failure type: diastolic Heart failure chronicity: acute on chronic Qualified Code(s): I50.33 - Acute on chronic diastolic (congestive) heart failure Is this a current diagnosis for this admission?: Yes (2) Aortic stenosis Is this a current diagnosis for this admission?: Yes (3) Coronary artery disease Is this a current diagnosis for this admission?: Yes (4) Diabetes mellitus type 2 in obese Is this a current diagnosis for this admission?: Yes (5) Hyperlipidemia Qualifiers: Hyperlipidemia type: unspecified Qualified Code(s): E78.5 - Hyperlipidemia , unspecified (6) Hypertension Qualifiers: Hypertension type: essential hypertension Qualified Code(s): I10 - Essential (primary) hypertension Is this a current diagnosis for this admission?: Yes - Notes Notes: IMPRESSION/RECOMMENDATION: 1. CONGESTIVE HEART FAILURE: This is most likely due to aortic stenosis and diastolic dysfunction. Agree with current treatment with Lasix. Would be cautious in view of the patient's aortic stenosis. By exam seems improved. Continue current diuretic therapy. 2. Aortic stenosis: Moderate to severe. History of aortic valve valvuloplasty x2. Patient pending percutaneous AVR placement. Dr. Bullard discussed with Dr. Tone Moss, who thinks the patient is to fail at present to have this procedure done. Agree with this assessment. Have encouraged patient to keep outpatient appointment with Dr. Moss. 3.. Coronary artery disease: History of stents in the LAD circumflex and RCA. Patient without any anginal symptoms. As per the there is no prior history of ND. Continue with dual antiplatelet therapy. 4. HYPERTENSION: BLOOD pressure seems to be well controlled. 5. ASTHMA/COPD: At present seems to be stable continue anti-COPD medication. 6. DIABETES MELLITUS: Type 2 insulin-dependent. Continue monitoring blood sugars and continue insulin. This is being well managed by the hospitalist. 7. Hypothyroidism: Continue thyroid replacement. 8. DEPRESSION: Continue on current medication.. 9. Moderate mitral regurgitation by echo. This also could be a cause of the patient's heart failure. 10. Chronic left bundle branch block pattern. 11. Hyperlipidemia: Recommend high potency statin therapy. LDL goal less than 70. - Time Time with patient: Greater than 35 minutes - CODE STATUS was discussed, patient remains full code. Surrogate decision-maker unchanged. Multiple medical problems were addressed. More than 50% of the time spent coordinating care, discussing management plans with involved caregivers. Management plans discussed with involved personnels. Medical decision making was of moderate to high complexity, patient's has multiple comorbidities. Medications reviewed and adjusted accordingly: Yes
[2018-03-16] MEDS: AMLODIPINE BESYLATE 5 MG TABLET PO SCH (21:03)
[2018-03-16] MEDS: LOSARTAN POTASSIUM 50 MG TABLET PO SCH (21:04)
[2018-03-16] MEDS: LORATADINE 10 MG TABLET PO SCH (21:04)
[2018-03-17] MEDS: LEVOTHYROXINE SODIUM 0.075 MG TABLET PO SCH (05:46)
[2018-03-17] MEDS: METOPROLOL SUCCINATE 50 MG TAB.SR.24H PO SCH (08:15)
[2018-03-17] MEDS: LANSOPRAZOLE 30 MG TAB.RAP.DR PO SCH (08:15)
[2018-03-17] MEDS: CLOPIDOGREL BISULFATE 75 MG TABLET PO SCH (09:32)
[2018-03-17] MEDS: OMEGA-3 ACID ETHYL ESTERS 1 GM CAPSULE PO SCH (09:32)
[2018-03-17] MEDS: PREDNISONE 20 MG TABLET PO SCH ×2 (09:32→17:17)
[2018-03-17] MEDS: DOXYCYCLINE HYCLATE 100 MG in DEXTROSE 5%-WATER 250 ML IV SCH ×2 (09:32→21:26)
[2018-03-17] MEDS: FERROUS SULFATE 325 MG TABLET PO SCH ×2 (09:32→17:17)
[2018-03-17] MEDS: CALCIUM CARBONATE 250 MG/VITAMIN D3 125 UNIT TABLET PO SCH (09:32)
[2018-03-17] MEDS: ZINC SULFATE 220 MG CAPSULE PO SCH ×2 (09:32→17:17)
[2018-03-17] MEDS: FUROSEMIDE 40 MG TABLET PO SCH (09:32)
[2018-03-17] MEDS: ENOXAPARIN SODIUM INJ 40 MG/0.4 ML DISP.SYRIN SUBCUT SCH (09:34)
[2018-03-17] MEDS: INSULIN DETEMIR 100 UNIT/ML 3 ML PEN SUBCUT SCH (09:36)
[2018-03-17] MEDS: OXYCODONE HCL IR 5 MG TABLET PO PRN (09:37)
[2018-03-17] MEDS: OXYCODONE-ACETAMINOPHEN 5-325 MG TABLET PO PRN (09:37)
[2018-03-17] MEDS: POLYETHYLENE GLYCOL 3350 POWDER 17 GM/1 PACKET PO SCH (09:38)
--- NOTE | 2018-03-17 12:12 | PDOC PROGRESS REPORT ---
Subjective Progress Note for:: 03/17/18 Subjective:: Ms. Antunez is an 82 yr old with a past medical history of combined systolic and diastolic heart failure, atrial fibrillation not on chronic anticoagulation, coronary artery disease, hypertension and hypothyroidism who was admitted for acute CHF exacerbation. No acute event overnight. Patient is fully awake and coherent this morning. She says she is feeling much better today. She denies acute complaints. She worked with physical therapy yesterday and was able to walk a few steps inside the room. She denies chest pain or SOB. She is on 1.5L of oxygen at home and is currently saturating well on home O2 requirement. Patient is deemed fit for discharge today. Unfortunately, her who takes care of her was admitted last night. There is concern for a safe discharge to home as she does not have anybody with her at home. Reason For Visit: CONGESTIVE HEART FAILURE Physical Exam Vital Signs: Temp Pulse Resp BP Pulse Ox 97.3 F 64 18 124/54 L 100 03/17/18 07:51 03/17/18 07:51 03/17/18 07:51 03/17/18 07:51 03/17/18 08:57 Intake & Output 03/16/18 03/17/18 03/18/18 06:59 06:59 06:59 Intake Total 611 1100 Output Total 1400 975 Balance -789 125 Weight 150 lb 9.211 oz 151 lb 0.266 oz General appearance: PRESENT: no acute distress, well-developed, well-nourished Head exam: PRESENT: atraumatic, normocephalic Eye exam: PRESENT: conjunctiva pink, EOMI, PERRLA. ABSENT: scleral icterus Ear exam: PRESENT: normal external ear exam Neck exam: ABSENT: carotid bruit, JVD, lymphadenopathy, thyromegaly Respiratory exam: PRESENT: clear to auscultation douglas. ABSENT: rales, rhonchi, wheezes Cardiovascular exam: PRESENT: RRR, systolic murmur. ABSENT: diastolic murmur, rubs Pulses: PRESENT: normal dorsalis pedis pul GI/Abdominal exam: PRESENT: normal bowel sounds, soft. ABSENT: distended, guarding, mass, organolmegaly, rebound, tenderness Rectal exam: PRESENT: deferred Extremities exam: PRESENT: full ROM, pedal edema - trace edema. ABSENT: calf tenderness, clubbing Neurological exam: PRESENT: alert, awake, oriented to person, oriented to place , oriented to time, oriented to situation, CN II-XII grossly intact. ABSENT: motor sensory deficit Results Laboratory Results: 03/16/18 02:43 03/16/18 02:43 03/15/18 03/15/18 03/15/18 04:23 10:33 16:02 Creatine Kinase CK-MB (CK-2) Troponin I 0.033 0.027 0.016 03/16/18 03/16/18 03/16/18 02:43 02:43 08:18 Creatine Kinase < 20 L < 20 L CK-MB (CK-2) 0.69 Troponin I 0.013 03/16/18 03/16/18 03/16/18 08:18 14:21 14:21 Creatine Kinase < 20 L CK-MB (CK-2) 0.82 0.71 Troponin I < 0.012 0.013 Impressions: Chest X-Ray 03/16/18 00:00 IMPRESSION: HEART ENLARGED WITHOUT FAILURE. NO OTHER SIGNIFICANT RADIOGRAPHIC FINDING IN THE CHEST. Modified Barium Swallow 03/16/18 00:00 IMPRESSION: LARYNGEAL PENETRATION WITH TRACE ASPIRATION SEEN WITH THIN BARIUM.PLEASE SEE SPEECH PATHOLOGIST REPORT FOR OTHER FINDINGS AND RECOMMENDATIONS. Assessment & Plan - Diagnosis (1) Acute and chronic respiratory failure with hypoxia Is this a current diagnosis for this admission?: Yes Plan: Secondary to CHF exacerbation. She is on 1.5L of oxygen at home. She has been weaned off down to her home O2 requirement. (2) Acute exacerbation of CHF (congestive heart failure) Qualifiers: Heart failure type: combined systolic and diastolic Qualified Code(s): I50.43 - Acute on chronic combined systolic (congestive) and diastolic ( congestive) heart failure Is this a current diagnosis for this admission?: Yes Plan: Improved. Chest x-ray upon presentation showed pulmonary congestion/edema. She did get IV lasix. Currently on Lasix 40 mg bid PO. She has been diuresing well. Caution with diuretics in the setting of aortic stenosis and diastolic dysfunction. Will reduce Lasix and resume home regimen of Lasi 40 mg on TThSa. (3) COPD (chronic obstructive pulmonary disease) Qualifiers: COPD type: COPD with acute exacerbation Qualified Code(s): J44.1 - Chronic obstructive pulmonary disease with (acute) exacerbation Is this a current diagnosis for this admission?: Yes Plan: Continue breathing treatments. IV Solu-Medrol switched to prednisone p.o. (4) Dysphagia Is this a current diagnosis for this admission?: Yes Plan: Patient underwent a modified swallow evaluation on 03/16/18. Patient is on thick liquids and mechanical soft diet. (5) Aortic stenosis Is this a current diagnosis for this admission?: Yes Plan: She has had valvuloplasty of the aortic valve stenosis x2. She is deemed high risk for percutaneous transcatheter aortic valve replacement. [TAVR]. Patient had a second aortic valvuloplasty due to restenosis in August 2017 had a cardiac catheterization which showed no significant blockages of the coronary arteries with patent stents in the LAD, left circumflex, and the RCA. Her October 2017 echocardiogram shows normal left ventricle systolic function, with LV diastolic dysfunction, moderate mitral regurgitation and moderate aortic stenosis. (6) History of atrial fibrillation Is this a current diagnosis for this admission?: Yes Plan: Patient has a remote history of Afb. She has not been on valve repairer anticoagulation. She has not had any episode of Afib since admission. (7) Coronary artery disease Is this a current diagnosis for this admission?: Yes Plan: Stable. Continue clopidogrel, statin and metoprolol. (8) Diabetes mellitus type 2 in obese Is this a current diagnosis for this admission?: Yes Plan: Sugars at goal. Continue Lantus 12 u HS and sliding scale. - Time Time Spent with patient: 15-24 minutes
[2018-03-17] MEDS: ALPRAZOLAM 0.5 MG TABLET PO SCH (12:50)
[2018-03-17] MEDS: INSULIN LISPRO 100 UNIT/ML 3 ML VIAL SUBCUT PRN ×2 (14:03→21:26)
[2018-03-17] MEDS: ATORVASTATIN CALCIUM 20 MG TABLET PO SCH (17:17)
--- NOTE | 2018-03-17 19:34 | PDOC PROGRESS REPORT ---
Subjective Progress Note for:: 03/17/18 Subjective:: Patient noted to be working with physical therapist today. Patient still has significant difficulty with ambulation. Swallowing is gradually improving. Patient seems to be doing better with gradual improvement. Pt is denying any chest arm or neck discomfort. Patient denying any PND, orthopnea. Patient denied any sustained palpitations, dizziness, syncope, near syncope. Patient denying any fever chills. Patient denying any other significant discomfort. Patient is maintaining sinus rhythm. Intermittent Mobitz type I block noted. Review of systems: Rest review of systems negative. Medications: Medications have been reviewed. Reason For Visit: CONGESTIVE HEART FAILURE Physical Exam Vital Signs: Temp Pulse Resp BP Pulse Ox 98.4 F 67 18 123/46 L 99 03/17/18 16:06 03/17/18 19:00 03/17/18 16:06 03/17/18 16:06 03/17/18 16:06 Intake & Output 03/16/18 03/17/18 03/18/18 06:59 06:59 06:59 Intake Total 611 1100 950 Output Total 1400 975 625 Balance -789 125 325 Weight 68.3 kg 68.5 kg Exam: GENERAL: well-nourished and in no acute distress. Alert and oriented x3 HEAD: Atraumatic, normocephalic. EYES: Pupils equal round and reactive to light, extraocular movements intact, sclera anicteric, conjunctiva are normal. ENT: TMs normal, nares patent, oropharynx clear without exudates. Moist mucous membranes. No oral ulcerations or bleeding gums noted NECK: supple without lymphadenopathy. Trachea is central. No cervical or axillary lymphadenopathy noted. Carotids are 2+, JVD WNL LUNGS: Respiration seems nonlabored, no significant accessory muscle action noted. Breath sounds clear to auscultation bilaterally and equal noted. No wheezes rales or rhonchi noted. No significant dullness noted on percussion. CHEST: Palpation of the chest wall shows no significant chest wall tenderness. 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 ABDOMEN: Soft, no significant tenderness appreciated, normoactive bowel sounds. No guarding, no rebound. No rigidity noted . No masses appreciated. EXTREMITIES: Pedal pulses are 1-2+, no calf tenderness noted. No clubbing or cyanosis. negative pedal edema noted NEUROLOGICAL: Focused neurological exam showed left-sided hemiparesis.. PSYCH: Normal mood, normal affect. Judgment and insight not checked SKIN: No significant ecchymosis, skin is noted to be warm. MUSCULOSKELETAL EXAM: No significant acute joint swelling noted. Results Laboratory Results: 03/16/18 02:43 03/16/18 02:43 03/15/18 03/15/18 03/15/18 04:23 10:33 16:02 Creatine Kinase CK-MB (CK-2) Troponin I 0.033 0.027 0.016 03/16/18 03/16/18 03/16/18 02:43 02:43 08:18 Creatine Kinase < 20 L < 20 L CK-MB (CK-2) 0.69 Troponin I 0.013 03/16/18 03/16/18 03/16/18 08:18 14:21 14:21 Creatine Kinase < 20 L CK-MB (CK-2) 0.82 0.71 Troponin I < 0.012 0.013 EKG Comments: Telemetry shows sinus rhythm without any sustained tachycardia or bradycardia. Impressions: Chest X-Ray 03/16/18 00:00 IMPRESSION: HEART ENLARGED WITHOUT FAILURE. NO OTHER SIGNIFICANT RADIOGRAPHIC FINDING IN THE CHEST. Modified Barium Swallow 03/16/18 00:00 IMPRESSION: LARYNGEAL PENETRATION WITH TRACE ASPIRATION SEEN WITH THIN BARIUM.PLEASE SEE SPEECH PATHOLOGIST REPORT FOR OTHER FINDINGS AND RECOMMENDATIONS. Assessment & Plan - Diagnosis (1) CHF (congestive heart failure) Qualifiers: Heart failure type: diastolic Heart failure chronicity: acute on chronic Qualified Code(s): I50.33 - Acute on chronic diastolic (congestive) heart failure Is this a current diagnosis for this admission?: Yes (2) Aortic stenosis Is this a current diagnosis for this admission?: Yes (3) Coronary artery disease Is this a current diagnosis for this admission?: Yes (4) Diabetes mellitus type 2 in obese Is this a current diagnosis for this admission?: Yes (5) Hyperlipidemia Qualifiers: Hyperlipidemia type: unspecified Qualified Code(s): E78.5 - Hyperlipidemia , unspecified (6) Hypertension Qualifiers: Hypertension type: essential hypertension Qualified Code(s): I10 - Essential (primary) hypertension Is this a current diagnosis for this admission?: Yes - Notes Notes: IMPRESSION/RECOMMENDATION: 1. CONGESTIVE HEART FAILURE: This is most likely due to aortic stenosis and diastolic dysfunction. Agree with current treatment with Lasix. Would be cautious in view of the patient's aortic stenosis. Today on exam seems compensated. Continue current diuretic therapy. Continue current medical regimen. 2. Aortic stenosis: Moderate to severe. History of aortic valve valvuloplasty x2. Patient pending percutaneous AVR placement. Dr. Bulladr discussed with Dr. Tone Moss, who thinks the patient is to fail at present to have this procedure done. Agree with this assessment. Have encouraged patient to keep outpatient appointment with Dr. Moss. 3.. Coronary artery disease: History of stents in the LAD circumflex and RCA. Patient without any anginal symptoms. As per the there is no prior history of CA. Continue with dual antiplatelet therapy. 4. HYPERTENSION: BLOOD pressure seems to be well controlled. 5. ASTHMA/COPD: At present seems to be stable continue anti-COPD medication. 6. DIABETES MELLITUS: Type 2 insulin-dependent. Continue monitoring blood sugars and continue insulin. This is being well managed by the hospitalist. 7. Hypothyroidism: Continue thyroid replacement. 8. DEPRESSION: Continue on current medication.. 9. Moderate mitral regurgitation by echo. This also could be a cause of the patient's heart failure. Will recommend follow-up echocardiograms. 10. Chronic left bundle branch block pattern. Stable, patient to report any syncope, near syncope. 11. Hyperlipidemia: Recommend high potency statin therapy. LDL goal less than 70. - Time Time with patient: Greater than 35 minutes - CODE STATUS was discussed, patient remains full code. Surrogate decision-maker unchanged. Multiple medical problems were addressed. More than 50% of the time spent coordinating care, discussing management plans with involved caregivers. Management plans discussed with involved personnels. Medical decision making was of moderate to high complexity, patient's has multiple comorbidities. Medications reviewed and adjusted accordingly: Yes
[2018-03-17] MEDS: LOSARTAN POTASSIUM 50 MG TABLET PO SCH (21:27)
[2018-03-17] MEDS: AMLODIPINE BESYLATE 5 MG TABLET PO SCH (21:27)
[2018-03-17] MEDS: LORATADINE 10 MG TABLET PO SCH (21:28)
[2018-03-18] MEDS: OXYCODONE-ACETAMINOPHEN 5-325 MG TABLET PO PRN (02:02)
[2018-03-18] MEDS: LEVOTHYROXINE SODIUM 0.075 MG TABLET PO SCH (05:57)
[2018-03-18 06:28] LABS: APPEARANCE,URINE CLEAR; BILIRUBIN,URINE NEGATIVE (NEGATIVE); COLOR,URINE YELLOW; GLUCOSE, URINE NEGATIVE (NEGATIVE); KETONES,URINE NEGATIVE (NEGATIVE); LEUKOCYTE ESTERASE,URINE MODERATE (NEGATIVE); NITRITE,URINE NEGATIVE (NEGATIVE); PROTEIN,URINE NEGATIVE (NEGATIVE); URINE SPECIFIC GRAVITY 1.014; UROBILINOGEN,URINE NEGATIVE mg/dL (<2.0)
[2018-03-18] MEDS: ZINC SULFATE 220 MG CAPSULE PO SCH ×2 (09:43→17:03)
[2018-03-18] MEDS: OMEGA-3 ACID ETHYL ESTERS 1 GM CAPSULE PO SCH (09:43)
[2018-03-18] MEDS: PREDNISONE 20 MG TABLET PO SCH ×2 (09:43→17:03)
[2018-03-18] MEDS: FUROSEMIDE 40 MG TABLET PO SCH (09:43)
[2018-03-18] MEDS: CALCIUM CARBONATE 250 MG/VITAMIN D3 125 UNIT TABLET PO SCH (09:43)
[2018-03-18] MEDS: METOPROLOL SUCCINATE 50 MG TAB.SR.24H PO SCH (09:43)
[2018-03-18] MEDS: CLOPIDOGREL BISULFATE 75 MG TABLET PO SCH (09:43)
[2018-03-18] MEDS: LANSOPRAZOLE 30 MG TAB.RAP.DR PO SCH (09:43)
[2018-03-18] MEDS: FERROUS SULFATE 325 MG TABLET PO SCH ×2 (09:43→17:03)
[2018-03-18] MEDS: DOXYCYCLINE HYCLATE 100 MG in DEXTROSE 5%-WATER 250 ML IV SCH (09:44)
[2018-03-18] MEDS: ENOXAPARIN SODIUM INJ 40 MG/0.4 ML DISP.SYRIN SUBCUT SCH (09:44)
[2018-03-18] MEDS: POLYETHYLENE GLYCOL 3350 POWDER 17 GM/1 PACKET PO SCH (09:44)
[2018-03-18] MEDS: INSULIN DETEMIR 100 UNIT/ML 3 ML PEN SUBCUT SCH (09:45)
--- NOTE | 2018-03-18 11:14 | PDOC PROGRESS REPORT ---
Subjective Progress Note for:: 03/18/18 Subjective:: No significant change from yesterday. Patient still has significant difficulty with ambulation. Swallowing is gradually improving. Patient seems to be doing better with gradual improvement. Pt is denying any chest arm or neck discomfort. Patient denying any PND, orthopnea. Patient denied any sustained palpitations, dizziness, syncope, near syncope. Patient denying any fever chills. Patient denying any other significant discomfort. Patient is maintaining sinus rhythm. Left bundle branch block pattern. Review of systems: Rest review of systems negative. Medications: Medications have been reviewed. Reason For Visit: CONGESTIVE HEART FAILURE Physical Exam Vital Signs: Temp Pulse Resp BP Pulse Ox 97.7 F 81 16 154/51 H 98 03/18/18 08:24 03/18/18 08:24 03/18/18 08:24 03/18/18 08:24 03/18/18 08:24 Intake & Output 03/17/18 03/18/18 03/19/18 06:59 06:59 06:59 Intake Total 1100 1200 Output Total 975 1675 Balance 125 -475 Weight 68.5 kg 69.1 kg Exam: GENERAL: well-nourished and in no acute distress. Alert and oriented x 2 HEAD: Atraumatic, normocephalic. EYES: Pupils equal round and reactive to light, extraocular movements intact, sclera anicteric, conjunctiva are normal. ENT: TMs normal, nares patent, oropharynx clear without exudates. Moist mucous membranes. No oral ulcerations or bleeding gums noted NECK: supple without lymphadenopathy. Trachea is central. No cervical or axillary lymphadenopathy noted. Carotids are 2+, JVD WNL LUNGS: Respiration seems nonlabored, no significant accessory muscle action noted. Breath sounds clear to auscultation bilaterally and equal noted. No wheezes rales or rhonchi noted. No significant dullness noted on percussion. CHEST: Palpation of the chest wall shows no significant chest wall tenderness. 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 ABDOMEN: Soft, no significant tenderness appreciated, normoactive bowel sounds. No guarding, no rebound. No rigidity noted . No masses appreciated. EXTREMITIES: Pedal pulses are 1-2+, no calf tenderness noted. No clubbing or cyanosis. negative pedal edema noted NEUROLOGICAL: Focused neurological exam left-sided hemiparesis. Speech has improved. PSYCH: Normal mood, normal affect. Judgment and insight not checked SKIN: No significant ecchymosis, skin is noted to be warm. MUSCULOSKELETAL EXAM: No significant acute joint swelling noted. Results Laboratory Results: 03/16/18 02:43 03/16/18 02:43 03/18/18 05:55 Urine Color YELLOW Urine Appearance CLEAR Urine pH 7.0 Ur Specific [place] 1.014 Urine Protein NEGATIVE Urine Glucose (UA) NEGATIVE Urine Ketones NEGATIVE Urine Blood NEGATIVE Urine Nitrite NEGATIVE Ur Leukocyte Esterase MODERATE H Urine WBC (Auto) 12 Urine RBC (Auto) 0 03/15/18 03/15/18 03/15/18 04:23 10:33 16:02 Creatine Kinase CK-MB (CK-2) Troponin I 0.033 0.027 0.016 03/16/18 03/16/18 03/16/18 02:43 02:43 08:18 Creatine Kinase < 20 L < 20 L CK-MB (CK-2) 0.69 Troponin I 0.013 03/16/18 03/16/18 03/16/18 08:18 14:21 14:21 Creatine Kinase < 20 L CK-MB (CK-2) 0.82 0.71 Troponin I < 0.012 0.013 EKG Comments: Telemetry strip shows sinus rhythm with left bundle branch block pattern. No acute ST-T wave changes are noted Impressions: Modified Barium Swallow 03/16/18 00:00 IMPRESSION: LARYNGEAL PENETRATION WITH TRACE ASPIRATION SEEN WITH THIN BARIUM.PLEASE SEE SPEECH PATHOLOGIST REPORT FOR OTHER FINDINGS AND RECOMMENDATIONS. Assessment & Plan - Diagnosis (1) CHF (congestive heart failure) Qualifiers: Heart failure type: diastolic Heart failure chronicity: acute on chronic Qualified Code(s): I50.33 - Acute on chronic diastolic (congestive) heart failure Is this a current diagnosis for this admission?: Yes (2) Aortic stenosis Is this a current diagnosis for this admission?: Yes (3) Coronary artery disease Is this a current diagnosis for this admission?: Yes (4) Diabetes mellitus type 2 in obese Is this a current diagnosis for this admission?: Yes (5) Hyperlipidemia Qualifiers: Hyperlipidemia type: unspecified Qualified Code(s): E78.5 - Hyperlipidemia , unspecified (6) Hypertension Qualifiers: Hypertension type: essential hypertension Qualified Code(s): I10 - Essential (primary) hypertension Is this a current diagnosis for this admission?: Yes - Notes Notes: CHF: Compensated. Aortic stenosis: Patient could be a candidate for percutaneous valve replacement. Patient already plugged in to be seen at [facility] for this. At this point no intervention needed. CAD: Currently stable without any angina or angina equivalent symptoms. Diabetes: Being well managed by the hospitalist. Dyslipidemia: LDL goal is less than 70. Hypertension: Blood pressure goal is 140/90 or less. 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 Patient will need rehab. Recommend outpatient appointment with her primary care assistant department manager - Time Time with patient: Greater than 35 minutes - CODE STATUS was discussed, patient remains full code. Surrogate decision-maker unchanged. Multiple medical problems were addressed. More than 50% of the time spent coordinating care, discussing management plans with involved caregivers. Management plans discussed with involved personnels. Medical decision making was of moderate to high complexity, patient's has multiple comorbidities. Medications reviewed and adjusted accordingly: Yes
--- NOTE | 2018-03-18 12:07 | RADIOLOGY REPORT (SQ) ---
EXAM DESCRIPTION: CHEST SINGLE VIEW COMPLETED DATE/TIME: 03/18/2018 10:49 am REASON FOR STUDY: pleuritic CP COMPARISON: 03/16/2018 NUMBER OF VIEWS: One view. TECHNIQUE: Single frontal radiographic view of the chest acquired. LIMITATIONS: None. FINDINGS: LUNGS AND PLEURA: No opacities, masses or pneumothorax. No pleural effusion. MEDIASTINUM AND HILAR STRUCTURES: No masses. Contour normal. HEART AND VASCULAR STRUCTURES: Heart enlarged without failure. Normal vasculature. BONES: No acute findings. HARDWARE: None in the chest. OTHER: No other significant finding. IMPRESSION: HEART ENLARGED WITHOUT FAILURE. NO OTHER SIGNIFICANT RADIOGRAPHIC FINDING IN THE CHEST. TECHNICAL DOCUMENTATION: JOB ID: [id number] [employer]- All Rights Reserved Reading location - IP/workstation name: [email or web address]
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
[2018-03-18] MEDS: ALPRAZOLAM 0.5 MG TABLET PO SCH (12:45)
[2018-03-18] MEDS: INSULIN LISPRO 100 UNIT/ML 3 ML VIAL SUBCUT PRN ×3 (12:45→21:44)
[2018-03-18] MEDS: ATORVASTATIN CALCIUM 20 MG TABLET PO SCH (17:03)
[2018-03-18] MEDS: DOXYCYCLINE HYCLATE 100 MG TABLET PO SCH (17:03)
[2018-03-18] MEDS: LOSARTAN POTASSIUM 50 MG TABLET PO SCH (21:43)
[2018-03-18] MEDS: AMLODIPINE BESYLATE 5 MG TABLET PO SCH (21:44)
[2018-03-18] MEDS: LORATADINE 10 MG TABLET PO SCH (21:44)
[2018-03-19] MEDS: LEVOTHYROXINE SODIUM 0.075 MG TABLET PO SCH (05:38)
[2018-03-19] MEDS: DOXYCYCLINE HYCLATE 100 MG TABLET PO SCH ×2 (05:39→17:02)
[2018-03-19] MEDS: INSULIN LISPRO 100 UNIT/ML 3 ML VIAL SUBCUT PRN ×4 (08:10→21:50)
[2018-03-19] MEDS: FERROUS SULFATE 325 MG TABLET PO SCH ×2 (09:48→17:02)
[2018-03-19] MEDS: PREDNISONE 20 MG TABLET PO SCH ×2 (09:48→17:02)
[2018-03-19] MEDS: CLOPIDOGREL BISULFATE 75 MG TABLET PO SCH (09:48)
[2018-03-19] MEDS: CALCIUM CARBONATE 250 MG/VITAMIN D3 125 UNIT TABLET PO SCH (09:49)
[2018-03-19] MEDS: OMEGA-3 ACID ETHYL ESTERS 1 GM CAPSULE PO SCH (09:49)
[2018-03-19] MEDS: ZINC SULFATE 220 MG CAPSULE PO SCH ×2 (09:49→17:03)
[2018-03-19] MEDS: POLYETHYLENE GLYCOL 3350 POWDER 17 GM/1 PACKET PO SCH (09:53)
[2018-03-19] MEDS: INSULIN DETEMIR 100 UNIT/ML 3 ML PEN SUBCUT SCH (09:54)
[2018-03-19] MEDS: ENOXAPARIN SODIUM INJ 40 MG/0.4 ML DISP.SYRIN SUBCUT SCH (09:59)
[2018-03-19] MEDS: OXYCODONE-ACETAMINOPHEN 5-325 MG TABLET PO PRN ×2 (10:09→21:51)
[2018-03-19] MEDS: LANSOPRAZOLE 30 MG TAB.RAP.DR PO SCH (10:09)
[2018-03-19] MEDS: OXYCODONE HCL IR 5 MG TABLET PO PRN ×2 (10:09→21:51)
[2018-03-19] MEDS: METOPROLOL SUCCINATE 50 MG TAB.SR.24H PO SCH (10:10)
[2018-03-19] MEDS: ALPRAZOLAM 0.5 MG TABLET PO SCH (12:38)
--- NOTE | 2018-03-19 14:55 | PDOC PROGRESS REPORT ---
Subjective Progress Note for:: 03/19/18 Subjective:: Ms. Antunez is an 82 yr old with a past medical history of combined systolic and diastolic heart failure, atrial fibrillation not on chronic anticoagulation, coronary artery disease, hypertension and hypothyroidism who was admitted for acute CHF exacerbation. No acute event overnight. Patient is fully awake and coherent this morning. She denies acute complaints. She is at her baseline status. She denies chest pain or SOB. She is on 1.5L of oxygen which is her home O2 requirement. Patient has been deemed fit for discharge. Patient's will be possibly discharged later today. Patient will likely be discharged tomorrow morning. Reason For Visit: CONGESTIVE HEART FAILURE Physical Exam Vital Signs: Temp Pulse Resp BP Pulse Ox 98.3 F 73 17 136/58 H 100 03/19/18 11:27 03/19/18 11:27 03/19/18 11:27 03/19/18 11:27 03/19/18 11:27 Intake & Output 03/18/18 03/19/18 03/20/18 06:59 06:59 06:59 Intake Total 1200 1031 118 Output Total 1675 500 Balance -475 531 118 Weight 152 lb 5.431 oz 150 lb 12.739 oz General appearance: PRESENT: no acute distress, well-developed, well-nourished Head exam: PRESENT: atraumatic, normocephalic Eye exam: PRESENT: conjunctiva pink, EOMI, PERRLA. ABSENT: scleral icterus Ear exam: PRESENT: normal external ear exam Mouth exam: PRESENT: moist, tongue midline Neck exam: ABSENT: carotid bruit, JVD, lymphadenopathy, thyromegaly Respiratory exam: PRESENT: clear to auscultation douglas. ABSENT: rales, rhonchi, wheezes Cardiovascular exam: PRESENT: clicks, RRR, systolic murmur. ABSENT: diastolic murmur, rubs Pulses: PRESENT: normal dorsalis pedis pul GI/Abdominal exam: PRESENT: normal bowel sounds, soft. ABSENT: distended, guarding, mass, organolmegaly, rebound, tenderness Rectal exam: PRESENT: deferred Extremities exam: PRESENT: +1 edema Neurological exam: PRESENT: alert, awake, oriented to person, oriented to place , oriented to time, oriented to situation, CN II-XII grossly intact. ABSENT: motor sensory deficit Results Laboratory Results: 03/16/18 02:43 03/16/18 02:43 03/15/18 03/15/18 03/15/18 04:23 10:33 16:02 Creatine Kinase CK-MB (CK-2) Troponin I 0.033 0.027 0.016 03/16/18 03/16/18 03/16/18 02:43 02:43 08:18 Creatine Kinase < 20 L < 20 L CK-MB (CK-2) 0.69 Troponin I 0.013 03/16/18 03/16/18 03/16/18 08:18 14:21 14:21 Creatine Kinase < 20 L CK-MB (CK-2) 0.82 0.71 Troponin I < 0.012 0.013 Impressions: Modified Barium Swallow 03/16/18 00:00 IMPRESSION: LARYNGEAL PENETRATION WITH TRACE ASPIRATION SEEN WITH THIN BARIUM.PLEASE SEE SPEECH PATHOLOGIST REPORT FOR OTHER FINDINGS AND RECOMMENDATIONS. Chest X-Ray 03/18/18 00:00 IMPRESSION: HEART ENLARGED WITHOUT FAILURE. NO OTHER SIGNIFICANT RADIOGRAPHIC FINDING IN THE CHEST. Assessment & Plan - Diagnosis (1) Acute and chronic respiratory failure with hypoxia Is this a current diagnosis for this admission?: Yes Plan: Resolved. Secondary to CHF exacerbation. She is on 1.5L of oxygen at home. She has been weaned off down to her home O2 requirement. (2) Acute exacerbation of CHF (congestive heart failure) Qualifiers: Heart failure type: combined systolic and diastolic Qualified Code(s): I50.43 - Acute on chronic combined systolic (congestive) and diastolic ( congestive) heart failure Is this a current diagnosis for this admission?: Yes Plan: Improved. Chest x-ray upon presentation showed pulmonary congestion/edema. She did get IV lasix. She has been diuresing well. Caution with diuretics in the setting of aortic stenosis and diastolic dysfunction. She is now back to her home regimen of Lasix 40 mg on TThSa. (3) COPD (chronic obstructive pulmonary disease) Qualifiers: COPD type: COPD with acute exacerbation Qualified Code(s): J44.1 - Chronic obstructive pulmonary disease with (acute) exacerbation Is this a current diagnosis for this admission?: Yes Plan: Continue breathing treatments. IV Solu-Medrol switched to prednisone p.o. (4) Dysphagia Is this a current diagnosis for this admission?: Yes Plan: Patient underwent a modified swallow evaluation on 03/16/18. Patient is on thick liquids and mechanical soft diet. (5) Aortic stenosis Is this a current diagnosis for this admission?: Yes Plan: She has had valvuloplasty of the aortic valve stenosis x2. She is deemed high risk for percutaneous transcatheter aortic valve replacement. [TAVR]. Patient had a second aortic valvuloplasty due to restenosis in August 2017 had a cardiac catheterization which showed no significant blockages of the coronary arteries with patent stents in the LAD, left circumflex, and the RCA. Her October 2017 echocardiogram shows normal left ventricle systolic function, with LV diastolic dysfunction, moderate mitral regurgitation and moderate aortic stenosis. (6) History of atrial fibrillation Is this a current diagnosis for this admission?: Yes Plan: Patient has a remote history of Afb. She has not been on exterminator anticoagulation. She has not had any episode of Afib since admission. (7) Coronary artery disease Is this a current diagnosis for this admission?: Yes Plan: Stable. Continue clopidogrel, statin and metoprolol. (8) Diabetes mellitus type 2 in obese Is this a current diagnosis for this admission?: Yes Plan: Sugars at goal. Continue Lantus 12 u HS and sliding scale. - Time Time Spent with patient: 15-24 minutes
[2018-03-19] MEDS: ATORVASTATIN CALCIUM 20 MG TABLET PO SCH (17:02)
[2018-03-19] MEDS: LOSARTAN POTASSIUM 50 MG TABLET PO SCH (21:52)
[2018-03-19] MEDS: LORATADINE 10 MG TABLET PO SCH (21:52)
[2018-03-19] MEDS: AMLODIPINE BESYLATE 5 MG TABLET PO SCH (21:52)
[2018-03-20] MEDS: LEVOTHYROXINE SODIUM 0.075 MG TABLET PO SCH (05:03)
[2018-03-20] MEDS: DOXYCYCLINE HYCLATE 100 MG TABLET PO SCH (05:03)
[2018-03-20] MEDS: INSULIN LISPRO 100 UNIT/ML 3 ML VIAL SUBCUT PRN (07:44)
[2018-03-20] MEDS: MECLIZINE HCL 25 MG TABLET PO PRN (07:58)
[2018-03-20 08:38] VITALS: BP 148/54
[2018-03-20] MEDS: POLYETHYLENE GLYCOL 3350 POWDER 17 GM/1 PACKET PO SCH (09:15)
[2018-03-20] MEDS: ENOXAPARIN SODIUM INJ 40 MG/0.4 ML DISP.SYRIN SUBCUT SCH (09:15)
[2018-03-20] MEDS: LANSOPRAZOLE 30 MG TAB.RAP.DR PO SCH (09:17)
[2018-03-20] MEDS: OMEGA-3 ACID ETHYL ESTERS 1 GM CAPSULE PO SCH (09:17)
[2018-03-20] MEDS: CALCIUM CARBONATE 250 MG/VITAMIN D3 125 UNIT TABLET PO SCH (09:17)
[2018-03-20] MEDS: ZINC SULFATE 220 MG CAPSULE PO SCH (09:17)
[2018-03-20] MEDS: CLOPIDOGREL BISULFATE 75 MG TABLET PO SCH (09:17)
[2018-03-20] MEDS: PREDNISONE 20 MG TABLET PO SCH (09:17)
[2018-03-20] MEDS: FUROSEMIDE 40 MG TABLET PO SCH (09:18)
[2018-03-20] MEDS: METOPROLOL SUCCINATE 50 MG TAB.SR.24H PO SCH (09:18)
[2018-03-20] MEDS: FERROUS SULFATE 325 MG TABLET PO SCH (09:18)
[2018-03-20] MEDS: INSULIN DETEMIR 100 UNIT/ML 3 ML PEN SUBCUT SCH (09:19)
--- NOTE | 2018-03-20 17:02 | PDOC DISCHARGE SUMMARY ---
General - Admit/Disc Date/PCP Admission Date/Primary Care Provider: 03/14/18 23:50 MAJOR WORKMAN MD Discharge Date: 03/20/18 - Discharge Diagnosis (1) Acute and chronic respiratory failure with hypoxia Is this a current diagnosis for this admission?: Yes (2) Acute exacerbation of CHF (congestive heart failure) Is this a current diagnosis for this admission?: Yes (3) COPD (chronic obstructive pulmonary disease) Is this a current diagnosis for this admission?: Yes (4) Dysphagia Is this a current diagnosis for this admission?: Yes (5) Aortic stenosis Is this a current diagnosis for this admission?: Yes (6) History of atrial fibrillation Is this a current diagnosis for this admission?: Yes (7) Coronary artery disease Is this a current diagnosis for this admission?: Yes (8) Diabetes mellitus type 2 in obese Is this a current diagnosis for this admission?: Yes - Additional Information Discharge Diet: Cardiac, Diabetic Discharge Activity: Activity As Tolerated, Balance Activity w/Rest, Weigh Daily Prescriptions: Calcium Carbonate/Vitamin D3 [Os-[place] 250 mg with Vitamin D 125 Units] 1 tab PO DAILY #30 tablet Oxymetazoline HCl [Nasal [place]] 30 ml NS BID PRN #1 mist PRN Reason: Home Medications: Amlodipine Besylate [Norvasc 5 mg Tablet] 5 mg PO QHS 12/19/17 Ascorbic Acid [Vitamin C 500 mg Tablet] 500 mg PO DAILY 12/19/17 Atorvastatin Calcium [Lipitor 20 mg Tablet] 20 mg PO WSUPPER 12/19/17 Clopidogrel Bisulfate [Plavix 75 mg Tablet] 75 mg PO DAILY 12/19/17 Ferrous Sulfate [Feosol] 325 mg PO DAILY 12/19/17 Fluticasone/Salmeterol [Advair HFA 115-21 mcg Inhaler] 2 puff IH BID 12/19/17 Furosemide [Lasix 40 mg Tablet] 40 mg PO TUTHSA@1000 12/19/17 Insulin Aspart [Novolog Flexpen] 0 unit SUBCUT BIDACBS PRN 12/19/17 Ipratropium/Albuterol Sulfate [Duoneb 3 ml Ampul] 3 ml NEB RTQ6HP PRN 12/19/17 Levothyroxine Sodium [Synthroid] 75 mcg PO Q6AM 12/19/17 Losartan Potassium [Cozaar] 100 mg PO QHS 12/19/17 Loteprednol Etabonate [Lotemax 0.5% Ophth Susp] 1 drop OU BID 12/19/17 Nitroglycerin [Nitrostat 0.4 mg (1/150 Gr) Tabs 25/Bottle] 1 tab SL Q5MP PRN Venus-3 Acid Ethyl Esters [Lovaza 1 gm Capsule] 1 gm PO DAILY 12/19/17 Ondansetron HCl [Zofran 4 mg Tablet] 4 mg PO Q6HP PRN 12/19/17 Oxycodone HCl/Acetaminophen [Percocet 7.5-325 mg Tablet] 1 tab PO Q6 12/19/17 Ubidecarenone [Coenzyme Q-10] 200 mg PO DAILY 12/19/17 Zinc Sulfate [Zinc-220 Capsule] 220 mg PO BID 12/19/17 Acetaminophen [Tylenol 325 mg Tablet] 650 mg PO Q4HP PRN 03/15/18 Metoprolol Tartrate 25 mg PO Q12 03/15/18 Pantoprazole Sodium [Protonix] 40 mg PO DAILY 03/15/18 Sertraline HCl 75 mg PO DAILY 03/15/18 Sodium Chloride [[place] Nasal [place] 44 ml Bottle] 1 spray NASL Q4HP PRN 03/15/18 Acetaminophen [Tylenol 325 mg Tablet] 650 mg PO Q4HP PRN tablet 03/20/18 Calcium Carbonate/Vitamin D3 [Os-[place] 250 mg with Vitamin D 125 Units] 1 tab PO DAILY #30 tablet 03/20/18 Insulin Detemir [Levemir Insulin 100 units/mL] 12 unit SUBCUT DAILY insuln.pen 03/20/18 Insulin Lispro [Humalog Insulin (Lispro) 100 unit/mL] 0 - 12 unit SUBCUT ACHSP PRN unit 03/20/18 Meclizine HCl [Antivert 25 mg Tablet] 25 mg PO DAILYP PRN tablet 03/20/18 Oxymetazoline HCl [Nasal [place]] 30 ml NS BID PRN #1 mist 03/20/18 History of Present Illness History of Present Illness: FARHEEN AGUILAR is a 82 year old female who has multiple medical conditions that I will outline below, remarkable for chronic systolic and diastolic CHF. Apparently patient has been discharged 2 days ago from a different facility, unknown diagnosis, it is not a very good historian has BiPAP in place. Patient tells me that her symptoms started 2 days ago, she has been compliant with her medications, progressive shortness of breath, denies cough, denies phlegm or wheezing, complains of rhinorrhea, denies sore throat. Has been feeling cold but denies fever or chills. Denies chest pain, nausea, vomiting, abdominal pain , diarrhea or urinary symptoms. Patient has history of frequent pneumonia and has chronic respiratory failure at 1.5 L oxygen nasal cannula at home, in the emergency department she was saturating 94% on 2 L nasal cannula and was noted tachypneic, tachycardic and becoming hypertensive, thus the reason that she was initiated on BiPAP. After BiPAP initiation of her vital signs are stabilized. Given 40 mg of IV Lasix, she is usually on 40 mg 2 times a day at home. Chest x-ray shows right more than left pulmonary edema with vascular congestion and cardiomegaly. Hospital Course Hospital Course: Ms. Aguilar is an 82 yr old with a past medical history of combined systolic and diastolic heart failure, atrial fibrillation not on chronic anticoagulation, coronary artery disease, hypertension and hypothyroidism who was admitted for acute CHF exacerbation. She was initially placed on BIPAP and also on IV Lasix. She was also evaluated by cardiology. She has had valvuloplasty of the aortic valve stenosis x2. She is deemed high risk for percutaneous transcatheter aortic valve replacement. [TAVR]. Patient had a second aortic valvuloplasty due to restenosis in August 2017 had a cardiac catheterization which showed no significant blockages of the coronary arteries with patent stents in the LAD, left circumflex, and the RCA. Her October 2017 echocardiogram shows normal left ventricle systolic function, with LV diastolic dysfunction, moderate mitral regurgitation and moderate aortic stenosis. She did improve clinically and was eventually weaned off from O2 and was back to her baseline home O2 requirement of 1.5L. Patient was deemed fit for discharge but had to stay for 3 more days here as her who takes care of her at home was admitted inpatient. There was concern for a safe discharge to home as she does not have anybody with her at home. She was evaluated by PT. She was recently discharged from rehab but still needs some assistance from her in some of her ADLs. Physical Exam Vital Signs: Temp Pulse Resp BP Pulse Ox 98.1 F 75 20 148/54 H 100 03/20/18 08:37 03/20/18 08:37 03/20/18 08:37 03/20/18 08:37 03/20/18 08:37 Intake & Output 03/19/18 03/20/18 03/21/18 06:59 06:59 06:59 Intake Total 1031 784 118 Output Total 500 Balance 531 784 118 Weight 150 lb 12.739 oz 149 lb 14.629 oz General appearance: PRESENT: no acute distress, well-developed, well-nourished Head exam: PRESENT: atraumatic, normocephalic Eye exam: PRESENT: conjunctiva pink, EOMI, PERRLA. ABSENT: scleral icterus Ear exam: PRESENT: normal external ear exam Mouth exam: PRESENT: moist, tongue midline Neck exam: ABSENT: carotid bruit, JVD, lymphadenopathy, thyromegaly Respiratory exam: PRESENT: clear to auscultation douglas. ABSENT: rales, rhonchi, wheezes Cardiovascular exam: PRESENT: clicks, RRR, systolic murmur. ABSENT: diastolic murmur, rubs Pulses: PRESENT: normal dorsalis pedis pul GI/Abdominal exam: PRESENT: normal bowel sounds, soft. ABSENT: distended, guarding, mass, organolmegaly, rebound, tenderness Rectal exam: PRESENT: deferred Neurological exam: PRESENT: alert, awake, oriented to person, oriented to place , oriented to time, oriented to situation, CN II-XII grossly intact. ABSENT: motor sensory deficit Results Laboratory Results: 03/16/18 02:43 03/16/18 02:43 03/15/18 03/15/18 03/15/18 04:23 10:33 16:02 Creatine Kinase CK-MB (CK-2) Troponin I 0.033 0.027 0.016 03/16/18 03/16/18 03/16/18 02:43 02:43 08:18 Creatine Kinase < 20 L < 20 L CK-MB (CK-2) 0.69 Troponin I 0.013 03/16/18 03/16/18 03/16/18 08:18 14:21 14:21 Creatine Kinase < 20 L CK-MB (CK-2) 0.82 0.71 Troponin I < 0.012 0.013 Impressions: Modified Barium Swallow 03/16/18 00:00 IMPRESSION: LARYNGEAL PENETRATION WITH TRACE ASPIRATION SEEN WITH THIN BARIUM.PLEASE SEE SPEECH PATHOLOGIST REPORT FOR OTHER FINDINGS AND RECOMMENDATIONS. Chest X-Ray 03/18/18 00:00 IMPRESSION: HEART ENLARGED WITHOUT FAILURE. NO OTHER SIGNIFICANT RADIOGRAPHIC FINDING IN THE CHEST. Qualifiers - * PATIENT BEING DISCHARGED WITH ANY OF THE FOLLOWING DIAGNOSIS: Heart Failure HF Pt being discharged on ACEI for LVEF less than 40%?: Yes HF Pt being discharged on ARBS for LVEF less than 40%?: Yes HF Pt with Afib discharged with Warfarin?: No Reason(s) for not prescribing Warfarin:: Not indicated HF Pt discharged on evidence-based Beta Macario:: Yes
--- NOTE | 2018-03-20 18:07 | PDOC PROGRESS REPORT ---
Subjective Progress Note for:: 03/19/18 Subjective:: Patient has shown slow gradual improvement. She has been working with physical therapist. Patient seems to be doing better with gradual improvement. Pt is denying any chest arm or neck discomfort. Patient denying any PND, orthopnea. Patient denied any sustained palpitations, dizziness, syncope, near syncope. Patient denying any fever chills. Patient denying any other significant discomfort. Patient is maintaining sinus rhythm. Intermittent blocked APCs noted. Patient has left bundle branch block. Review of systems: Rest review of systems negative. Medications: Medications have been reviewed. Reason For Visit: CONGESTIVE HEART FAILURE Physical Exam Vital Signs: Temp Pulse Resp BP Pulse Ox 98.4 F 76 20 151/55 H 100 03/19/18 07:32 03/19/18 07:32 03/19/18 07:32 03/19/18 07:32 03/19/18 07:32 Intake & Output 03/18/18 03/19/18 03/20/18 06:59 06:59 06:59 Intake Total 1200 1031 Output Total 1675 500 Balance -475 531 Weight 69.1 kg 68.4 kg Exam: GENERAL: well-nourished and in no acute distress. Alert and oriented x 2 HEAD: Atraumatic, normocephalic. EYES: Pupils equal round and reactive to light, extraocular movements intact, sclera anicteric, conjunctiva are normal. ENT: TMs normal, nares patent, oropharynx clear without exudates. Moist mucous membranes. No oral ulcerations or bleeding gums noted NECK: supple without lymphadenopathy. Trachea is central. No cervical or axillary lymphadenopathy noted. Carotids are 2+, JVD WNL LUNGS: Respiration seems nonlabored, no significant accessory muscle action noted. Breath sounds clear to auscultation bilaterally and equal noted. No wheezes rales or rhonchi noted. No significant dullness noted on percussion. CHEST: Palpation of the chest wall shows no significant chest wall tenderness. 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 ABDOMEN: Soft, no significant tenderness appreciated, normoactive bowel sounds. No guarding, no rebound. No rigidity noted . No masses appreciated. EXTREMITIES: Pedal pulses are 1-2+, no calf tenderness noted. No clubbing or cyanosis. negative pedal edema noted NEUROLOGICAL: Focused neurological exam showed findings of improving left hemiparesis. PSYCH: Normal mood, normal affect. Judgment and insight not checked. SKIN: No significant ecchymosis, skin is noted to be warm. MUSCULOSKELETAL EXAM: No significant acute joint swelling noted. Results Laboratory Results: 03/16/18 02:43 03/16/18 02:43 03/15/18 03/15/18 03/15/18 04:23 10:33 16:02 Creatine Kinase CK-MB (CK-2) Troponin I 0.033 0.027 0.016 03/16/18 03/16/18 03/16/18 02:43 02:43 08:18 Creatine Kinase < 20 L < 20 L CK-MB (CK-2) 0.69 Troponin I 0.013 03/16/18 03/16/18 03/16/18 08:18 14:21 14:21 Creatine Kinase < 20 L CK-MB (CK-2) 0.82 0.71 Troponin I < 0.012 0.013 EKG Comments: Sinus rhythm, intermittent blocked APC noted Impressions: Modified Barium Swallow 03/16/18 00:00 IMPRESSION: LARYNGEAL PENETRATION WITH TRACE ASPIRATION SEEN WITH THIN BARIUM.PLEASE SEE SPEECH PATHOLOGIST REPORT FOR OTHER FINDINGS AND RECOMMENDATIONS. Chest X-Ray 03/18/18 00:00 IMPRESSION: HEART ENLARGED WITHOUT FAILURE. NO OTHER SIGNIFICANT RADIOGRAPHIC FINDING IN THE CHEST. Assessment & Plan - Diagnosis (1) CHF (congestive heart failure) Qualifiers: Heart failure type: diastolic Heart failure chronicity: acute on chronic Qualified Code(s): I50.33 - Acute on chronic diastolic (congestive) heart failure Is this a current diagnosis for this admission?: Yes (2) Aortic stenosis Is this a current diagnosis for this admission?: Yes (3) Coronary artery disease Is this a current diagnosis for this admission?: Yes (4) Diabetes mellitus type 2 in obese Is this a current diagnosis for this admission?: Yes (5) Hyperlipidemia Qualifiers: Hyperlipidemia type: unspecified Qualified Code(s): E78.5 - Hyperlipidemia , unspecified (6) Hypertension Qualifiers: Hypertension type: essential hypertension Qualified Code(s): I10 - Essential (primary) hypertension Is this a current diagnosis for this admission?: Yes - Notes Notes: CHF: Compensated. Continue current regimen of medications. Aortic stenosis: Patient could be a candidate for percutaneous valve replacement. Patient already plugged in to be seen at [facility] for this. At this point no intervention needed. Patient encouraged to make follow-up appointment with rail operator. CAD: Currently stable without any angina or angina equivalent symptoms. Diabetes: Being well managed by the hospitalist. Dyslipidemia: LDL goal is less than 70. Hypertension: Blood pressure goal is 140/90 or less. 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 Patient will need rehab. Recommend outpatient appointment with her primary care rail operator - Time Time with patient: Greater than 35 minutes - CODE STATUS was discussed, patient remains full code. Surrogate decision-maker unchanged. Multiple medical problems were addressed. More than 50% of the time spent coordinating care, discussing management plans with involved caregivers. Management plans discussed with involved personnels. Medical decision making was of moderate to high complexity, patient's has multiple comorbidities. Medications reviewed and adjusted accordingly: Yes
--- NOTE | 2018-03-20 18:10 | PDOC PROGRESS REPORT ---
Subjective Progress Note for:: 03/20/18 Subjective:: Patient has shown slow gradual improvement. Patient is felt ready for discharge to a rehab facility. Her discharge medications reviewed and is noted to be satisfactory. Patient seems to be doing better with gradual improvement. Pt is denying any chest arm or neck discomfort. Patient denying any PND, orthopnea. Patient denied any sustained palpitations, dizziness, syncope, near syncope. Patient denying any fever chills. Patient denying any other significant discomfort. Patient is maintaining sinus rhythm. Intermittent blocked APCs noted. Patient has left bundle branch block. Review of systems: Rest review of systems negative. Medications: Medications have been reviewed. Reason For Visit: CONGESTIVE HEART FAILURE Physical Exam Vital Signs: Temp Pulse Resp BP Pulse Ox 98.1 F 75 20 148/54 H 100 03/20/18 08:37 03/20/18 08:37 03/20/18 08:37 03/20/18 08:37 03/20/18 08:37 Intake & Output 03/19/18 03/20/18 03/21/18 06:59 06:59 06:59 Intake Total 1031 784 118 Output Total 500 Balance 531 784 118 Weight 68.4 kg 68 kg Exam: GENERAL: well-nourished and in no acute distress. Alert and oriented x 2 HEAD: Atraumatic, normocephalic. EYES: Pupils equal round and reactive to light, extraocular movements intact, sclera anicteric, conjunctiva are normal. ENT: TMs normal, nares patent, oropharynx clear without exudates. Moist mucous membranes. No oral ulcerations or bleeding gums noted NECK: supple without lymphadenopathy. Trachea is central. No cervical or axillary lymphadenopathy noted. Carotids are 2+, JVD WNL LUNGS: Respiration seems nonlabored, no significant accessory muscle action noted. Breath sounds clear to auscultation bilaterally and equal noted. No wheezes rales or rhonchi noted. No significant dullness noted on percussion. CHEST: Palpation of the chest wall shows no significant chest wall tenderness. 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 ABDOMEN: Soft, no significant tenderness appreciated, normoactive bowel sounds. No guarding, no rebound. No rigidity noted . No masses appreciated. EXTREMITIES: Pedal pulses are 1-2+, no calf tenderness noted. No clubbing or cyanosis. negative pedal edema noted NEUROLOGICAL: Focused neurological exam showed left hemiparesis findings which are improving. PSYCH: Normal mood, normal affect. Judgment and insight not checked SKIN: No significant ecchymosis, skin is noted to be warm. MUSCULOSKELETAL EXAM: No significant acute joint swelling noted. Results Laboratory Results: 03/16/18 02:43 03/16/18 02:43 03/15/18 03/15/18 03/15/18 04:23 10:33 16:02 Creatine Kinase CK-MB (CK-2) Troponin I 0.033 0.027 0.016 03/16/18 03/16/18 03/16/18 02:43 02:43 08:18 Creatine Kinase < 20 L < 20 L CK-MB (CK-2) 0.69 Troponin I 0.013 03/16/18 03/16/18 03/16/18 08:18 14:21 14:21 Creatine Kinase < 20 L CK-MB (CK-2) 0.82 0.71 Troponin I < 0.012 0.013 EKG Comments: Shows sinus rhythm without any significant tacky or bradyarrhythmias. Occasional blocked APCs noted. Impressions: Modified Barium Swallow 03/16/18 00:00 IMPRESSION: LARYNGEAL PENETRATION WITH TRACE ASPIRATION SEEN WITH THIN BARIUM.PLEASE SEE SPEECH PATHOLOGIST REPORT FOR OTHER FINDINGS AND RECOMMENDATIONS. Chest X-Ray 03/18/18 00:00 IMPRESSION: HEART ENLARGED WITHOUT FAILURE. NO OTHER SIGNIFICANT RADIOGRAPHIC FINDING IN THE CHEST. Assessment & Plan - Diagnosis (1) CHF (congestive heart failure) Qualifiers: Heart failure type: diastolic Heart failure chronicity: acute on chronic Qualified Code(s): I50.33 - Acute on chronic diastolic (congestive) heart failure Is this a current diagnosis for this admission?: Yes (2) Aortic stenosis Is this a current diagnosis for this admission?: Yes (3) Coronary artery disease Is this a current diagnosis for this admission?: Yes (4) Diabetes mellitus type 2 in obese Is this a current diagnosis for this admission?: Yes (5) Hyperlipidemia Qualifiers: Hyperlipidemia type: unspecified Qualified Code(s): E78.5 - Hyperlipidemia , unspecified (6) Hypertension Qualifiers: Hypertension type: essential hypertension Qualified Code(s): I10 - Essential (primary) hypertension Is this a current diagnosis for this admission?: Yes - Notes Notes: CHF: Compensated. Patient medical regimen reviewed and she is on a very satisfactory regimen. Patient could be discharged on current regimen. Telemetry strips reviewed shows no significant bradycardia or tachyarrhythmia. Aortic stenosis: Patient could be a candidate for percutaneous valve replacement. Patient already plugged in to be seen at [facility] for this. At this point no intervention needed. CAD: Currently stable without any angina or angina equivalent symptoms. Diabetes: Being well managed by the hospitalist. Dyslipidemia: LDL goal is less than 70. Hypertension: Blood pressure goal is 140/90 or less. 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 Patient will need rehab. Recommend outpatient appointment with her primary care potato peeler - Time Time with patient: Greater than 35 minutes - More than 50% of the time spent coordinating care, discussing management plans with involved caregivers. Management plans discussed with involved personnels. Medical decision making was of moderate to high complexity, patient's has multiple comorbidities. Medications reviewed and adjusted accordingly: Yes
== END 2018-03-20 10:29 | disposition home health service (06) | DRG 291 ==
LOC: ER 19:56 → EH 23:50 → 3W 03-15 01:50
PROVIDERS: ADMIT Internal Medicine; ATTEND Internal Medicine
DX: I11.0 Hypertensive heart disease with heart failure (principal); J96.21 Acute and chronic respiratory failure with hypoxia; J44.1 Chronic obstructive pulmonary disease with (acute) exacerbation; I50.43 Acute on chronic combined systolic (congestive) and diastolic (congestive) heart failure; I48.2 Chronic atrial fibrillation; I08.0 Rheumatic disorders of both mitral and aortic valves; E78.5 Hyperlipidemia, unspecified; E03.9 Hypothyroidism, unspecified; E11.8 Type 2 diabetes mellitus with unspecified complications; R13.10 Dysphagia, unspecified; F41.8 Other specified anxiety disorders; I25.2 Old myocardial infarction; Z79.01 Long term (current) use of anticoagulants; Z79.4 Long term (current) use of insulin; Z79.51 Long term (current) use of inhaled steroids; Z79.899 Other long term (current) drug therapy
CPT/HCPCS: 36415; 71045; 74230; 80048; 80053; 81001; 82550; 82553; 82803; 82962; 83735; 83880; 84484; 85025; 93005; 93010; 93306; 94660; 96374; 99291; G8978-GP; G8979-GP; G8996-GN; G8997-GN; J1650; J1815; J1940; J2920; J3490; J7060; J7512

== ENCOUNTER 2018-03-27 05:03 | Emergency (ER) | payer MEDICARE ==
[2018-03-27] MEDS ORDERED: ONDANSETRON HCL INJ/PF 4 MG/2 ML SDV IV ONE (05:06)
--- NOTE | 2018-03-27 05:15 | ER Document Report ---
ED General - General Mode of Arrival: Stretcher Information source: Patient, Emergency Med Personnel TRAVEL OUTSIDE OF THE [place] IN LAST 30 DAYS: No - HPI Patient complains to provider of: Chest pain, shortness of breath, abdominal pain, nausea Onset: This morning Onset/Duration: Gradual, Persistent Quality of pain: Achy, Pressure Severity: Moderate Pain Level: 3 Associated symptoms: Chest pain, Nonproductive cough, Nausea, Shortness of breath Exacerbated by: Denies Relieved by: Denies Similar symptoms previously: Yes Recently seen / treated by doctor: Yes <FATUMA VARGAS - Last Filed: 03/27/18 06:24> <EMILEE ROSEN - Last Filed: 03/27/18 10:53> - General Stated Complaint: ABDOMINAL PAIN Time Seen by Provider: 03/27/18 05:06 - HPI Notes: Patient is an 82-year-old female with multiple medical problems including CHF and COPD, presenting to the emergency room today via EMS for complaints of chest pain with heaviness over her midsternum, shortness of breath, epigastric abdominal pain with nausea, symptoms started sometime early this morning and are consistent with CHF exacerbation that she has had in the past (FATUMA VARGAS) - Related Data Allergies/Adverse Reactions: aspirin [Aspirin] Allergy (Verified 10/18/15 14:53) codeine Allergy (Verified 10/21/17 08:57) erythromycin base [Erythromycin Base] Allergy (Verified 10/18/15 14:53) ibuprofen [From Motrin] Allergy (Verified 10/21/17 08:57) morphine [Morphine] Allergy (Verified 10/18/15 14:53) Sulfa (Sulfonamide Antibiotics) Allergy (Verified 10/18/15 14:53) Past Medical History - General Information source: Patient - Social History Smoking Status: Unknown if Ever Smoked Family History: COPD, Hypertension, Malignancy - Past Medical History Cardiac Medical History: Reports: Hx Atrial Fibrillation, Hx Congestive Heart Failure, Hx Heart Attack - non-stemi, Hx Hypercholesterolemia, Hx Hypertension Pulmonary Medical History: Reports: Hx COPD, Hx Pneumonia - Recurrent, Hx Sleep Apnea - Likely. The patient is to go for a sleep study as outpatient. Endocrine Medical History: Reports: Hx Diabetes Mellitus Type 2, Hx Hypothyroidism Renal/ Medical History: Denies: Hx Peritoneal Dialysis Musculoskeletal Medical History: Reports Hx Arthritis Psychiatric Medical History: Reports: Hx Depression - anxiety Traumatic Medical History: Denies: Hx Gunshot Wound, Hx Traumatic Brain Injury Infectious Medical History: Denies: Hx C-Diff Past Surgical History: Reports: Hx Cholecystectomy, Hx Coronary Stent, Hx Hysterectomy, Hx Neurologic Surgery - Neck 2011, Other - Valvuloplasty at [facility] - Immunizations Hx Diphtheria, Pertussis, Tetanus Vaccination: Yes Hx Pneumococcal Vaccination: 07/09/10 <FATUMA VARGAS - Last Filed: 03/27/18 06:24> Review of Systems - Review of Systems Constitutional: No symptoms reported EENT: No symptoms reported Cardiovascular: See HPI Respiratory: See HPI Gastrointestinal: See HPI Genitourinary: No symptoms reported Female Genitourinary: No symptoms reported Musculoskeletal: No symptoms reported Skin: No symptoms reported Hematologic/Lymphatic: No symptoms reported Neurological/Psychological: No symptoms reported -: Yes All other systems reviewed and negative <FATUMA VARGAS - Last Filed: 03/27/18 06:24> Physical Exam - General General appearance: Alert In distress: None - HEENT Head: Normocephalic Eyes: Normal Conjunctiva: Normal Extraocular movements intact: Yes Eyelashes: Normal Pupils: PERRL Pharynx: Normal Neck: Normal - Respiratory Respiratory status: No respiratory distress Chest status: Nontender Breath sounds: Normal Chest palpation: Normal - Cardiovascular Rhythm: Regular Murmur: Yes Systolic murmur grade 1-6: 4 - Abdominal Inspection: Normal Distension: No distension Bowel sounds: Normal Tenderness: Tender - Diffuse - Back Back: Normal - Extremities General upper extremity: Normal inspection General lower extremity: Normal inspection - Neurological Neuro grossly intact: Yes Cognition: Normal Orientation: AAOx4 [place] Coma Scale Eye Opening: Spontaneous [place] Coma Scale Verbal: Oriented [place] Coma Scale Motor: Obeys Commands [place] Coma Scale Total: 15 - Psychological Associated symptoms: Normal affect, Normal mood - Skin Skin Temperature: Warm Skin Moisture: Dry Skin Color: Pale <FATUMA VARGAS - Last Filed: 03/27/18 06:24> <EMILEE ROSEN - Last Filed: 03/27/18 10:53> - Vital signs Vitals: Pulse Ox 94 03/27/18 05:07 Course - Laboratory Result Diagrams: 03/27/18 05:15 03/27/18 05:15 - EKG Interpretation by Me EKG shows normal: Sinus rhythm Rate: Tachycardia [place]/QRS: LBBB When compared to previous EKG there are: No significant change - Transfer of Care Care transferred to following provider: Dr Rosen, pending UA, re-evaluation and disposition <FATUMA VARGAS - Last Filed: 03/27/18 06:24> - Laboratory Result Diagrams: 03/27/18 05:15 03/27/18 05:15 <EMILEE ROSEN - Last Filed: 03/27/18 10:53> - Re-evaluation Re-evalutation: Laboratory 03/27/18 03/27/18 03/27/18 05:15 05:15 05:15 WBC 15.1 H RBC 3.81 Hgb 10.7 L Hct 32.5 L MCV 85 MCH 28.2 MCHC 33.0 RDW 14.6 H Plt Count 304 Seg Neutrophils % 81.8 H Lymphocytes % 7.1 L Monocytes % 7.9 Eosinophils % 2.6 Basophils % 0.6 Absolute Neutrophils 12.4 H Absolute Lymphocytes 1.1 Absolute Monocytes 1.2 Absolute Eosinophils 0.4 Absolute Basophils 0.1 VBG pH VBG pCO2 VBG HCO3 VBG Base Excess Sodium 135.3 L Potassium 4.9 Chloride 95 L Carbon Dioxide 29 Anion Gap 11 BUN 27 H Creatinine 0.74 Est GFR ( Amer) > 60 Est GFR (Non-Af Amer) > 60 Glucose 199 H Calcium 9.6 Total Bilirubin 0.7 Direct Bilirubin 0.3 Neonat Total Bilirubin Not Reportable Neonat Direct Bilirubin Not Reportable Neonat Indirect Bili Not Reportable AST 44 H ALT 19 Alkaline Phosphatase 141 H Troponin I 0.019 NT-Pro-B Natriuret Pep 1930 H Total Protein 8.0 Albumin 4.0 Lipase 40.7 Urine Color Urine Appearance Urine pH Ur Specific [place] Urine Protein Urine Glucose (UA) Urine Ketones Urine Blood Urine Nitrite Urine Bilirubin Urine Urobilinogen Ur Leukocyte Esterase Urine WBC (Auto) Urine RBC (Auto) Urine WBC Clumps Squamous Epi Cells Auto U Non-Squamous Epis Auto Urine Ascorbic Acid 03/27/18 03/27/18 05:15 07:12 WBC RBC Hgb Hct MCV MCH MCHC RDW Plt Count Seg Neutrophils % Lymphocytes % Monocytes % Eosinophils % Basophils % Absolute Neutrophils Absolute Lymphocytes Absolute Monocytes Absolute Eosinophils Absolute Basophils VBG pH 7.44 H VBG pCO2 42.8 VBG HCO3 28.4 VBG Base Excess 3.8 Sodium Potassium Chloride Carbon Dioxide Anion Gap BUN Creatinine Est GFR ( Amer) Est GFR (Non-Af Amer) Glucose Calcium Total Bilirubin Direct Bilirubin Neonat Total Bilirubin Neonat Direct Bilirubin Neonat Indirect Bili AST ALT Alkaline Phosphatase Troponin I NT-Pro-B Natriuret Pep Total Protein Albumin Lipase Urine Color YELLOW Urine Appearance TURBID Urine pH 6.0 Ur Specific [place] 1.016 Urine Protein 30 H Urine Glucose (UA) NEGATIVE Urine Ketones NEGATIVE Urine Blood NEGATIVE Urine Nitrite POSITIVE H Urine Bilirubin NEGATIVE Urine Urobilinogen 2.0 H Ur Leukocyte Esterase LARGE H Urine WBC (Auto) >182 Urine RBC (Auto) 13 Urine WBC Clumps MANY Squamous Epi Cells Auto 3 U Non-Squamous Epis Auto 3 Urine Ascorbic Acid NEGATIVE 03/27/18 10:02 Patient received in sign out. Pending urinalysis. UA consistent with infection. CBC does show a leukocytosis and a hemoglobin of 10 which is the patient's baseline.BNP is elevated but improved from previous admission last week. She is not requiring any additional oxygen.CMP without significant electrolyte abnormalities. Cardiac enzymes within normal limits.EKG unchanged from previous. Patient did receive ceftriaxone during her ED course. Patient was reevaluated and without abdominal pain. She does complain of shortness of breath and has received breathing treatment. She is tolerating fluids, afebrile. I did discuss with her and her admission versus discharge home. At this time patient and are comfortable with a Discharge home.Patient was evaluated and treated as appropriate for the patient's presenting symptoms and complaint, with consideration of any critical or life threatening conditions that may be associated with their obtained history and exam as noted above. All results were discussed with patient. Patient provided the opportunity to ask questions, and express concerns. Patient was educated on treatments based on their presumed diagnosis as noted above. At this time we will discharge the patient with return precautions and follow-up recommendations. Verbal discharge instructions given a the bedside. Medication warnings reviewed. Patient is in agreement with this plan and has verbalized understanding of return precautions. After careful consideration I feel that that patient can be safely discharged from the emergency department, they were advised to followup with a primary care physician in 2-3 days. Dictation on this chart was performed using voice recognition software and may result in unintended grammatical, spelling, syntax or errors. 03/27/18 10:47 (EMILEE ROSEN) - Vital Signs Vital signs: Temp Pulse Resp BP Pulse Ox 98.3 F 20 127/54 H 93 03/27/18 10:32 03/27/18 10:01 03/27/18 10:01 03/27/18 10:01 - Laboratory Laboratory results interpreted by me: 03/27/18 03/27/18 03/27/18 05:15 05:15 05:15 WBC 15.1 H Hgb 10.7 L Hct 32.5 L RDW 14.6 H Seg Neutrophils % 81.8 H Lymphocytes % 7.1 L Absolute Neutrophils 12.4 H VBG pH Sodium 135.3 L Chloride 95 L BUN 27 H Glucose 199 H AST 44 H Alkaline Phosphatase 141 H NT-Pro-B Natriuret Pep 1930 H Urine Protein Urine Nitrite Urine Urobilinogen Ur Leukocyte Esterase 03/27/18 03/27/18 05:15 07:12 WBC Hgb Hct RDW Seg Neutrophils % Lymphocytes % Absolute Neutrophils VBG pH 7.44 H Sodium Chloride BUN Glucose AST Alkaline Phosphatase NT-Pro-B Natriuret Pep Urine Protein 30 H Urine Nitrite POSITIVE H Urine Urobilinogen 2.0 H Ur Leukocyte Esterase LARGE H Discharge <FATUMA VARGAS - Last Filed: 03/27/18 06:24> <EMILEE ROSEN - Last Filed: 03/27/18 10:53> - Discharge Clinical Impression: COPD exacerbation, Hyperglycemia Urinary tract infection Qualifiers: Urinary tract infection type: site unspecified Hematuria presence: without hematuria Qualified Code(s): N39.0 - Urinary tract infection, site not specified CHF (congestive heart failure) Qualifiers: Heart failure type: unspecified Heart failure chronicity: chronic Qualified Code(s): I50.9 - Heart failure, unspecified Condition: Good Disposition: HOME, SELF-CARE Instructions: Chronic Obstructive Lung Disease ([facility]), Congestive Heart Failure ([facility]), Urinary Tract Infection ([facility]) Additional Instructions: Your urine shows findings consistent with a urinary tract infection. Please take all the antibiotics as directed even if your symptoms have improved. Please follow-up with your primary care physician as needed. Return to emergency room if you develop fever >101F, persistent vomiting, become lethargic , have severe pain in your sides, or any other symptoms that are concerning to you. Follow up with your [id number] hours for further care or return to the ED IMMEDIATELY if symptoms worsen or you have any concerns. If you cannot afford to follow up with your primary care physician a list of low cost clinics have been provided at the end of your discharge papers as well. Most prescribed medications have multiple side effects. The safest thing to do is when filling your prescription speak to your pharmacist regarding possible interactions with your normal home medications and over the counter medications such as Ibuprofen, Tylenol, Benadryl. If you experience any symptoms that cause you discomfort or concern you should discontinue the medication immediately and return to the emergency room or call your primary care physician. Prescriptions: Cephalexin Monohydrate [Keflex 500 mg Capsule] 500 mg PO BID 7 Days #14 capsule Referrals: MAJOR WORKMAN MD [Primary Care Provider] - Follow up as needed
[2018-03-27 05:29] LABS: ABSOLUTE BASOPHILS # (AUTO) 0.1 10^3/uL (0.0-0.2); ABSOLUTE EOSINOPHILS # (AUTO) 0.4 10^3/uL (0.0-0.6); ABSOLUTE LYMPHOCYTES (AUTO) 1.1 10^3/uL (0.5-4.7); ABSOLUTE MONOCYTES (AUTO) 1.2 10^3/uL (0.1-1.4); ABSOLUTE NEUT (AUTO) 12.4 10^3/uL (1.7-8.2); BASOPHILS % (AUTO) 0.6 % (0-2); EOSINOPHILS % (AUTO) 2.6 % (0-6); HEMATOCRIT 32.5 % (36.0-47.0); HEMOGLOBIN 10.7 g/dL (12.0-15.5); LYMPHOCYTES % (AUTO) 7.1 % (13-45); MEAN CORPUSCULAR HEMOGLOBIN 28.2 pg (27.0-33.4); MEAN CORPUSCULAR VOLUME 85 fl (80-97); MONOCYTES % (AUTO) 7.9 % (3-13); PLATELET COUNT 304 10^3/uL (150-450); RED BLOOD COUNT 3.81 10^6/uL (3.72-5.28); RED CELL DISTRIBUTION WIDTH 14.6 % (11.5-14.0); SEGMENTED NEUTROPHILS % (AUTO) 81.8 % (42-78); TOTAL CELLS COUNTED % (AUTO) 100 %; WHITE BLOOD COUNT 15.1 10^3/uL (4.0-10.5)
[2018-03-27 05:44] LABS: ALANINE AMINOTRANSFERASE 19 U/L (9-52); ALKALINE PHOSPHATASE 141 U/L (38-126); ANION GAP 11 (5-19); ASPARTATE AMINO TRANSFERASE 44 U/L (14-36); BILIRUBIN,DIRECT 0.3 mg/dL (0.0-0.4); BILIRUBIN,TOTAL 0.7 mg/dL (0.2-1.3); BLOOD UREA NITROGEN 27 mg/dL (7-20); CALCIUM 9.6 mg/dL (8.4-10.2); CARBON DIOXIDE 29 mmol/L (22-30); CHLORIDE 95 mmol/L (98-107); GLUCOSE 199 mg/dL (75-110); LIPASE 40.7 U/L (23-300); POTASSIUM 4.9 mmol/L (3.6-5.0); SODIUM 135.3 mmol/L (137-145)
[2018-03-27 05:55] LABS: TROPONIN I 0.019 ng/mL
--- NOTE | 2018-03-27 06:06 | RADIOLOGY REPORT (SQ) ---
EXAM DESCRIPTION: X-ray single view chest. CLINICAL HISTORY: 82 years Female, sob COMPARISON: Prior chest x-ray performed on 03/18/2018 TECHNIQUE: Single portable view of the chest performed on 03/27/2018 at 5:40 AM FINDINGS: The lungs are well expanded and are grossly clear. There is probable minimal parenchymal scarring in the right perihilar region. There is no evidence of a pneumothorax. Cardiac silhouette is stable and is mildly prominent. The cardiac silhouette may be accentuated by the portable technique. The mediastinal contours are normal. No acute osseous abnormality is identified. There are chronic changes of the shoulders and spine. There are remote postsurgical changes of the lower cervical spine. No focal soft tissue abnormalities are seen. Lines and tubes: None. IMPRESSION: 1. No evidence of acute intrathoracic disease or significant change since the prior study. 2. Mild stable prominence of the cardiac silhouette.
[2018-03-27 06:31] LABS: VENOUS BLOOD BASE EXCESS 3.8 mmol/L; VENOUS BLOOD HCO3 28.4 mmol/L (20-32); VENOUS BLOOD PCO2 42.8 mmHg (35-63); VENOUS BLOOD PH 7.44 (7.30-7.42)
[2018-03-27 08:25] LABS: APPEARANCE,URINE TURBID; BILIRUBIN,URINE NEGATIVE (NEGATIVE); COLOR,URINE YELLOW; GLUCOSE, URINE NEGATIVE (NEGATIVE); KETONES,URINE NEGATIVE (NEGATIVE); LEUKOCYTE ESTERASE,URINE LARGE (NEGATIVE); NITRITE,URINE POSITIVE (NEGATIVE); PROTEIN,URINE 30 mg/dL (NEGATIVE); URINE SPECIFIC GRAVITY 1.016
[2018-03-27] MEDS ORDERED: IPRATROPIUM/ALBUTEROL 0.5-2.5 MG/3 ML AMPUL NEB ONE (08:57)
[2018-03-27] MEDS ORDERED: CEFTRIAXONE INJ 1000 MG VIAL IV ONE (09:15)
--- NOTE | 2018-03-27 09:40 | EKG REPORT ---
SEVERITY:- ABNORMAL ECG - SINUS TACHYCARDIA. LEFT BUNDLE BRANCH BLOCK : Confirmed by: Thomas Hdz MD 27-Mar-2018 09:39:18
[2018-03-27] MEDS ORDERED: CEFTRIAXONE 2 GM/D5W RTU 2 GM/50 ML RTUPB IV SCH (10:00)
[2018-03-27 11:19] VITALS: BP 160/58
== END 2018-03-27 11:43 | disposition home or self-care (01) ==
LOC: ER 05:03
DX: J44.1 Chronic obstructive pulmonary disease with (acute) exacerbation (principal); E11.65 Type 2 diabetes mellitus with hyperglycemia; N39.0 Urinary tract infection, site not specified; I50.9 Heart failure, unspecified; R07.9 Chest pain, unspecified; R06.02 Shortness of breath; R10.9 Unspecified abdominal pain; R11.0 Nausea; R10.13 Epigastric pain; I25.2 Old myocardial infarction; I10 Essential (primary) hypertension; E11.9 Type 2 diabetes mellitus without complications
CPT/HCPCS: 93005; 94640; 99285; 51701; 96374; 96375; 36415; 87040; 87086; 83690; 85025; 87088; 80053; 81001; 84484; 87186; 82803; 83880; 71045; 93010; J0696; J2405; A9270; J7620

== ENCOUNTER 2018-04-01 05:16 | Inpatient (IN) | payer MEDICARE ==
[2018-04-01] MEDS ORDERED: IPRATROPIUM/ALBUTEROL 0.5-2.5 MG/3 ML AMPUL NEB ONE (05:33)
[2018-04-01 05:38] LABS: ABSOLUTE BASOPHILS # (AUTO) 0.2 10^3/uL (0.0-0.2); ABSOLUTE EOSINOPHILS # (AUTO) 0.3 10^3/uL (0.0-0.6); ABSOLUTE LYMPHOCYTES (AUTO) 1.3 10^3/uL (0.5-4.7); ABSOLUTE MONOCYTES (AUTO) 0.8 10^3/uL (0.1-1.4); ABSOLUTE NEUT (AUTO) 16.8 10^3/uL (1.7-8.2); BASOPHILS % (AUTO) 0.9 % (0-2); EOSINOPHILS % (AUTO) 1.7 % (0-6); HEMATOCRIT 31.5 % (36.0-47.0); HEMOGLOBIN 10.3 g/dL (12.0-15.5); LYMPHOCYTES % (AUTO) 6.8 % (13-45); MEAN CORPUSCULAR HEMOGLOBIN 28.1 pg (27.0-33.4); MEAN CORPUSCULAR HGB CONC 32.8 g/dL (32.0-36.0); MEAN CORPUSCULAR VOLUME 86 fl (80-97); MONOCYTES % (AUTO) 4.3 % (3-13); PLATELET COUNT 443 10^3/uL (150-450); RED BLOOD COUNT 3.67 10^6/uL (3.72-5.28); RED CELL DISTRIBUTION WIDTH 14.6 % (11.5-14.0); SEGMENTED NEUTROPHILS % (AUTO) 86.3 % (42-78); TOTAL CELLS COUNTED % (AUTO) 100 %; WHITE BLOOD COUNT 19.5 10^3/uL (4.0-10.5)
--- NOTE | 2018-04-01 05:41 | ER Document Report ---
ED Respiratory Problem <ROCÍO DENNIS - Last Filed: 04/01/18 07:50> - General Mode of Arrival: Medic Information source: Emergency Med Personnel TRAVEL OUTSIDE OF THE [place] IN LAST 30 DAYS: No <SHAUNA MARQUEZ - Last Filed: 04/03/18 10:02> - General Stated Complaint: RESPIRATORY DISTRESS Time Seen by Provider: 04/01/18 05:26 Notes: Patient is an 83-year-old female who presents with chief complaint of difficulty breathing. Patient reports that she has been having increasing shortness of breath over the last couple of weeks. She states that she has a history of COPD and CHF. She wears 3 L of oxygen at home continuously. She is currently finishing up with the last 2 days of treatment for urinary tract infection. Patient reports she has had a dry nonproductive cough for the last couple of days. Denies any fever, nausea, vomiting or diarrhea. She does have a history of pneumonia. Patient currently denies any chest pain. Patient's gave her a dose of nitroglycerin as he felt this was going to help with her shortness of breath. EMS reports initial O2 sats were as low as 65%, although they reported she had clear lung sounds and was alert, oriented and interactive with them the whole time. On arrival to the emergency department patient is on a CPAP, O2 sats are in the low 90s patient is alert, sitting up with minimal distress noted. (SHAUNA MARQUEZ) - Related Data Allergies/Adverse Reactions: aspirin [Aspirin] Allergy (Verified 04/01/18 14:24) codeine Allergy (Verified 04/01/18 14:24) erythromycin base [Erythromycin Base] Allergy (Verified 04/01/18 14:24) ibuprofen [From Motrin] Allergy (Verified 04/01/18 14:24) morphine [Morphine] Allergy (Verified 04/01/18 14:24) Sulfa (Sulfonamide Antibiotics) Allergy (Verified 04/01/18 14:24) Past Medical History - General Information source: Patient - Social History Smoking Status: Former Smoker Family History: COPD, Hypertension, Malignancy - Past Medical History Cardiac Medical History: Reports: Hx Atrial Fibrillation, Hx Congestive Heart Failure, Hx Heart Attack - non-stemi, Hx Hypercholesterolemia, Hx Hypertension Pulmonary Medical History: Reports: Hx COPD, Hx Pneumonia - Recurrent, Hx Sleep Apnea - Likely. The patient is to go for a sleep study as outpatient. Endocrine Medical History: Reports: Hx Diabetes Mellitus Type 2, Hx Hypothyroidism Renal/ Medical History: Denies: Hx Peritoneal Dialysis Musculoskeletal Medical History: Reports Hx Arthritis Psychiatric Medical History: Reports: Hx Depression - anxiety Traumatic Medical History: Denies: Hx Gunshot Wound, Hx Traumatic Brain Injury Infectious Medical History: Denies: Hx C-Diff Past Surgical History: Reports: Hx Cholecystectomy, Hx Coronary Stent, Hx Hysterectomy, Hx Neurologic Surgery - Neck 2011, Other - Valvuloplasty at [facility] - Immunizations Hx Diphtheria, Pertussis, Tetanus Vaccination: Yes Hx Pneumococcal Vaccination: 07/09/10 <SHAUNA MARQUEZ - Last Filed: 04/03/18 10:02> Physical Exam <ROCÍO DENNIS - Last Filed: 04/01/18 07:50> <SHAUNA MARQUEZ - Last Filed: 04/03/18 10:02> - Vital signs Vitals: Resp Pulse Ox 15 89 L 04/01/18 05:22 04/01/18 05:22 - Notes Notes: PHYSICAL EXAMINATION: GENERAL: Disheveled and in mild distress. HEAD: Atraumatic, normocephalic. EYES: Pupils equal round and reactive to light, extraocular movements intact, conjunctiva are normal. ENT: Nares patent, oropharynx clear without exudates. Moist mucous membranes. NECK: Normal range of motion, supple without lymphadenopathy LUNGS: Breath sounds clear to auscultation bilaterally and equal. Mild expiratory wheezes, no rales or rhonchi. Mildly increased work of breathing. No retractions. HEART: Regular rate and rhythm without murmurs ABDOMEN: Soft, nontender, nondistended abdomen. No guarding, no rebound. No masses appreciated. Female : deferred Musculoskeletal: Normal range of motion, no pitting or edema. No cyanosis. PSYCH: Anxious. SKIN: Warm, Dry, normal turgor, no rashes or lesions noted. (SHAUNA MARQUEZ) Course - Laboratory Result Diagrams: 04/01/18 05:27 04/01/18 05:27 <ROCÍO DENNIS - Last Filed: 04/01/18 07:50> - Laboratory Result Diagrams: 04/03/18 04:51 04/03/18 04:51 <SHAUNA MARQUEZ - Last Filed: 04/03/18 10:02> - Re-evaluation Re-evalutation: 04/01/18 05:40 Patient was placed on BiPAP on arrival. Blood pressure 159/56, heart rate 98, respiratory rate of 26, pulse ox is 99-100% on 80% FiO2, FiO2 decreased down to 60%. Patient alert, oriented, reporting that she is breathing a lot easier since calling 911. She has no edema. She denies any chest pain or pressure. Currently pending lab workup and chest x-ray. EKG, rate of 97, unchanged from previous EKGs on record. No ischemic changes noted. 04/01/18 06:48 Chest x-ray reveals a developing right-sided pneumonia. Patient with leukocytosis, white blood count 19.5. VBG is otherwise unremarkable with a pH of 7.26. CMP is relatively unremarkable. BNP is 3250. Patient was recently discharged from the hospital after a multiple day hospital stay. Patient continues to rest on the BiPAP, FiO2 currently at 60%, pulse ox 95%, respiratory rate of 20. Patient does report improvement of her symptoms since arrival. Will start patient on Zosyn 4.5 g as well as Levaquin 750 mg. Will consult hospitalist for admission for hospital acquired pneumonia given the fact that patient was discharged recently from the hospital and her inpatient stay was greater than 2 days. Patient updated on current plan of care and is agreeable to same. 04/01/18 07:05 Contacted inpatient hospitalist team, spoke to Elba RODRIGUEZ who indicates they are in report and someone will return my call in 15 minutes. Patient currently resting on the BiPAP, FiO2 decreased to 50%. Patient's pulse ox is 96 %, respiratory rate of 20, heart rate 87, blood pressure 113/56. 04/01/18 07:34 Patient accepted for admission by Dr. Billy Segura hospitalist. (SHAUNA MARQUEZ) - Vital Signs Vital signs: Temp Pulse Resp BP Pulse Ox 98.2 F 66 19 122/55 L 98 04/03/18 08:09 04/03/18 08:09 04/03/18 08:09 04/03/18 08:09 04/03/18 08:09 - Laboratory Laboratory results interpreted by me: 04/01/18 04/01/18 04/01/18 05:27 05:27 05:27 WBC 19.5 H RBC 3.67 L Hgb 10.3 L Hct 31.5 L RDW 14.6 H Seg Neutrophils % 86.3 H Lymphocytes % 6.8 L Absolute Neutrophils 16.8 H VBG pH Sodium 136.3 L Chloride 94 L BUN 23 H Glucose 293 H Direct Bilirubin 0.5 H AST 39 H Alkaline Phosphatase 166 H Creatine Kinase < 20 L NT-Pro-B Natriuret Pep 3250 H Total Protein 8.4 H 04/01/18 05:27 WBC RBC Hgb Hct RDW Seg Neutrophils % Lymphocytes % Absolute Neutrophils VBG pH 7.26 L Sodium Chloride BUN Glucose Direct Bilirubin AST Alkaline Phosphatase Creatine Kinase NT-Pro-B Natriuret Pep Total Protein Discharge - Discharge Admitting Provider: Hospitalist Unit Admitted: Telemetry <ROCÍO DENNIS - Last Filed: 04/01/18 07:50> <SHAUNA MARQUEZ - Last Filed: 04/03/18 10:02> - Discharge Clinical Impression: Hypoxia Pneumonia Qualifiers: Pneumonia type: due to unspecified organism Laterality: right Lung location: unspecified part of lung Qualified Code(s): J18.9 - Pneumonia, unspecified organism Leukocytosis Qualifiers: Leukocytosis type: unspecified Qualified Code(s): D72.829 - Elevated white blood cell count, unspecified Condition: Stable Disposition: ADMITTED INPATIENT
[2018-04-01 05:42] LABS: VENOUS BLOOD BASE EXCESS -3.8 mmol/L; VENOUS BLOOD HCO3 23.6 mmol/L (20-32); VENOUS BLOOD PCO2 54.1 mmHg (35-63); VENOUS BLOOD PH 7.26 (7.30-7.42)
[2018-04-01 05:55] LABS: ALANINE AMINOTRANSFERASE 11 U/L (9-52); ALKALINE PHOSPHATASE 166 U/L (38-126); ANION GAP 15 (5-19); ASPARTATE AMINO TRANSFERASE 39 U/L (14-36); BILIRUBIN,DIRECT 0.5 mg/dL (0.0-0.4); BLOOD UREA NITROGEN 23 mg/dL (7-20); CALCIUM 9.9 mg/dL (8.4-10.2); CARBON DIOXIDE 27 mmol/L (22-30); CHLORIDE 94 mmol/L (98-107); GLUCOSE 293 mg/dL (75-110); POTASSIUM 4.6 mmol/L (3.6-5.0); SODIUM 136.3 mmol/L (137-145); TOTAL PROTEIN 8.4 g/dL (6.3-8.2)
[2018-04-01 05:58] LABS: CREATINE KINASE < 20 U/L (30-135)
--- NOTE | 2018-04-01 06:01 | RADIOLOGY REPORT (SQ) ---
CLINICAL HISTORY: shortness of breath COMPARISON: March 27, 2018. TECHNIQUE: XR CHEST 1 VIEW 04/01/2018 5:26 AM CDT FINDINGS: Cardiac silhouette is enlarged. There is extensive airspace disease throughout the right lung. There are trace pleural effusions. There is no pneumothorax. There are no acute osseous findings. IMPRESSION: Developing right-sided pneumonia.
[2018-04-01 06:07] LABS: CREATINE KINASE MB 0.78 ng/mL (<4.55); TROPONIN I 0.033 ng/mL
[2018-04-01] MEDS ORDERED: PIPERACILLIN/TAZOBACTAM 3.375 GM VIAL IV ONE (06:38)
[2018-04-01] MEDS ORDERED: LEVOFLOXACIN 750 MG/D5W RTU 750 MG/150 ML RTUPB IV ONE (06:39)
--- NOTE | 2018-04-01 09:12 | EKG REPORT ---
SEVERITY:- ABNORMAL ECG - SINUS RHYTHM MULTIPLE ATRIAL PREMATURE COMPLEXES PROBABLE LEFT ATRIAL ABNORMALITY LEFT BUNDLE BRANCH BLOCK : Confirmed by: Francisco J Ferrer 01-Apr-2018 09:11:58
[2018-04-01] MEDS ORDERED: IPRATROPIUM/ALBUTEROL 0.5-2.5 MG/3 ML AMPUL NEB PRN ×2 (09:15→09:38)
[2018-04-01] MEDS ORDERED: ACETAMINOPHEN 325 MG TABLET PO PRN ×2 (09:15→09:41)
[2018-04-01] MEDS ORDERED: NITROGLYCERIN 0.4 MG/TAB 25 TAB/BOTTLE SL PRN (09:15)
[2018-04-01] MEDS ORDERED: MECLIZINE HCL 25 MG TABLET PO PRN (09:15)
[2018-04-01] MEDS ORDERED: (PENDING PHARMACY ID) (Ondansetron Hcl [Zofran 4 Mg Tablet] 4 MG) PO PRN (09:23)
[2018-04-01] MEDS ORDERED: GLUCAGON,HUMAN RECOMB 1 MG INJ IM PRN (09:39)
[2018-04-01] MEDS ORDERED: DEXTROSE 50%-WATER 25 GM/50 ML DISP.SYRIN IV PRN ×2 (09:39)
[2018-04-01] MEDS ORDERED: DEXTROSE 40% GEL 15 GM TUBE PO PRN ×2 (09:39)
[2018-04-01] MEDS ORDERED: INSULIN LISPRO 100 UNIT/ML 3 ML VIAL SUBCUT PRN (09:39)
[2018-04-01] MEDS ORDERED: OXYMETAZOLINE HCL NS PRN (09:41)
[2018-04-01] MEDS ORDERED: OXYMETAZOLINE HCL 0.05% NASAL SPRAY 15 ML BOTTLE NASL PRN (09:54)
[2018-04-01] MEDS ORDERED: ONDANSETRON 4 MG TAB.RAPDIS PO PRN (09:58)
[2018-04-01] MEDS ORDERED: (PENDING PHARMACY ID) (Loteprednol Etabonate [Lotemax 0.5% Ophth Susp] 1 DROP) OU SCH (10:00)
[2018-04-01] MEDS ORDERED: (PENDING PHARMACY ID) (Fluticasone/Salmeterol [Advair Hfa 115-21 Mcg Inhaler] 2 PUFF) IH SCH (10:00)
[2018-04-01] MEDS ORDERED: UBIDECARENONE 200 MG PO SCH (10:00)
[2018-04-01] MEDS ORDERED: CLOPIDOGREL BISULFATE 75 MG TABLET PO SCH (10:00)
[2018-04-01] MEDS ORDERED: SERTRALINE HCL 75 MG PO SCH (10:00)
[2018-04-01] MEDS ORDERED: CALCIUM CARBONATE 250 MG/VITAMIN D3 125 UNIT TABLET PO SCH (10:00)
[2018-04-01] MEDS: FUROSEMIDE 40 MG TABLET PO SCH (10:27)
[2018-04-01] MEDS: ZINC SULFATE 220 MG CAPSULE PO SCH ×2 (10:28→17:00)
[2018-04-01] MEDS: ASCORBIC ACID 500 MG TABLET PO SCH (10:28)
[2018-04-01] MEDS: CALCIUM CARBONATE 250 MG/VITAMIN D3 125 UNIT TABLET PO SCH (10:29)
[2018-04-01] MEDS: FERROUS SULFATE 325 MG TABLET PO SCH ×2 (10:29→17:00)
[2018-04-01] MEDS: CLOPIDOGREL BISULFATE 75 MG TABLET PO SCH (10:29)
[2018-04-01] MEDS: METOPROLOL SUCCINATE 50 MG TAB.SR.24H PO SCH (10:29)
[2018-04-01] MEDS: GUAIFENESIN 600 MG TABLET.SA PO SCH (10:29)
[2018-04-01] MEDS: OMEGA-3 ACID ETHYL ESTERS 1 GM CAPSULE PO SCH (10:29)
[2018-04-01] MEDS: INSULIN DETEMIR 100 UNIT/ML 3 ML PEN SUBCUT SCH (10:30)
[2018-04-01] MEDS: ENOXAPARIN SODIUM INJ 30 MG/0.3 ML DISP.SYRIN SUBCUT SCH (10:31)
[2018-04-01] MEDS: POLYETHYLENE GLYCOL 3350 POWDER 17 GM/1 PACKET PO SCH (10:48)
[2018-04-01] MEDS: SERTRALINE HCL 50 MG TABLET PO SCH (11:06)
[2018-04-01] MEDS: FLUTICASONE/SALMETEROL DISKUS 250-50 MCG/DOSE IH SCH (11:07)
[2018-04-01] MEDS ORDERED: ALPRAZOLAM 0.25 MG TABLET PO SCH (12:00)
[2018-04-01] MEDS: ONDANSETRON HCL INJ/PF 4 MG/2 ML SDV IV PRN ×2 (13:16→18:18)
[2018-04-01] MEDS ORDERED: VANCOMYCIN HCL 0 MG in DEXTROSE 5%-WATER 250 ML IV NR (14:45)
[2018-04-01] MEDS ORDERED: VANCOMYCIN HCL 1,250 MG in DEXTROSE 5%-WATER 250 ML IV ONE (15:00)
[2018-04-01] MEDS ORDERED: ATORVASTATIN CALCIUM 20 MG TABLET PO SCH (17:00)
--- NOTE | 2018-04-01 20:13 | PDOC CONSULTATION ---
Consultation Consult Date: 04/01/18 Attending physician:: LIVIA SILVA Consult reason:: Non-STEMI History of Present Illness Admission Date/PCP: 04/01/18 08:06 MAJOR WORKMAN MD Patient complains of: Shortness of breath History of Present Illness: FARHEEN AGUILAR is a 83 year old female who presents with chief complaint of difficulty breathing. Patient reports that she has been having increasing shortness of breath over the last couple of weeks. She states that she has a history of COPD and CHF. She wears 3 L of oxygen at home continuously. She is currently finishing up with the last 2 days of treatment for urinary tract infection. Patient reports she has had a dry nonproductive cough for the last couple of days. Denies any fever, nausea, vomiting or diarrhea. She does have a history of pneumonia. Patient currently denies any chest pain. Patient's gave her a dose of nitroglycerin as he felt this was going to help with her shortness of breath. EMS reports initial O2 sats were as low as 65%, although they reported she had clear lung sounds and was alert, oriented and interactive with them the whole time. On arrival to the emergency department patient is on a CPAP, O2 sats are in the low 90s patient is alert, sitting up with minimal distress noted. This history obtained by the hospitalist was reviewed and confirmed. This morning I was asked to see this patient because of positive troponin I in the non-STEMI range. Patient does have a cardiac history which is quite complicated and extensive. Patient has history of multiple coronary stents and also has had aortic balloon valvuloplasty I believe earlier this year. Patient is being followed by Dr. Porter at [facility]. Patient also has had recent admissions with pneumonia, UTI however it seems patient also had admissions with significant exacerbation of CHF. Previous echocardiogram reviewed showed severe aortic stenosis and also moderate aortic incompetence. It was felt that patient would benefit from tertiary care transfer and this was actually recommended when the patient was seen this morning. The hospitalist will try to contact [facility] regarding transfer. Past Medical History Cardiac Medical History: Reports: Atrial Fibrillation, Congestive Heart Failure , Myocardial Infarction - non-stemi, Hyperlipidema, Hypertension Pulmonary Medical History: Reports: Chronic Obstructive Pulmonary Disease (COPD) , Pneumonia - Recurrent, Sleep Apnea - Likely. The patient is to go for a sleep study as outpatient. Endocrine Medical History: Reports: Diabetes Mellitus Type 2, Hypothyroidism Musculoskeltal Medical History: Reports: Arthritis Psychiatric Medical History: Reports: Depression - anxiety Traumatic Medical History: Denies: Gunshot Wound, Traumatic Brain Injury Hematology: Denies: Hemophilia, Sickle Cell Disease, Bleeding Tendencies Infectious Medical History: Denies: Clostridium Difficile Past Surgical History Past Surgical History: Reports: Cholecystectomy, Coronary Stent, Hysterectomy, Other - Valvuloplasty at [facility] Information Source: Patient Smoking Status: Never Smoker Frequency of Alcohol Use: None Hx Recreational Drug Use: No Drugs: None Hx Prescription Drug Abuse: No - Advance Directive Resuscitation Status: Full Code Surrogate healthcare decision maker:: Patient's is the surrogate decision-maker Family History Family History: COPD, Hypertension, Malignancy Parental Family History Reviewed: Yes Children Family History Reviewed: Yes Sibling(s) Family History Reviewed.: Yes Medication/Allergy Home Medications: Ascorbic Acid [Vitamin C 500 mg Tablet] 500 mg PO DAILY 12/19/17 Atorvastatin Calcium [Lipitor 20 mg Tablet] 20 mg PO WSUPPER 12/19/17 Clopidogrel Bisulfate [Plavix 75 mg Tablet] 75 mg PO DAILY 12/19/17 Ferrous Sulfate [Feosol] 325 mg PO DAILY 12/19/17 Ipratropium/Albuterol Sulfate [Duoneb 3 ml Ampul] 3 ml NEB RTQ6HP PRN 12/19/17 Levothyroxine Sodium [Synthroid] 75 mcg PO Q6AM 12/19/17 Losartan Potassium [Cozaar] 100 mg PO QHS 12/19/17 Nitroglycerin [Nitrostat 0.4 mg (1/150 Gr) Tabs 25/Bottle] 1 tab SL Q5MP PRN [place]-3 Acid Ethyl Esters [Lovaza 1 gm Capsule] 1 gm PO DAILY 12/19/17 Ondansetron HCl [Zofran 4 mg Tablet] 4 mg PO Q6HP PRN 12/19/17 Oxycodone HCl/Acetaminophen [Percocet 7.5-325 mg Tablet] 1 tab PO Q6HP PRN 12/19 Ubidecarenone [Coenzyme Q-10] 200 mg PO DAILY 12/19/17 Zinc Sulfate [Zinc-220 Capsule] 220 mg PO BID 12/19/17 Acetaminophen [Tylenol 325 mg Tablet] 650 mg PO Q4HP PRN 03/15/18 Pantoprazole Sodium [Protonix] 40 mg PO DAILY 03/15/18 Sertraline HCl 75 mg PO DAILY 03/15/18 Sodium Chloride [Evan Nasal [place] 44 ml Bottle] 1 spray NASL Q4HP PRN 03/15/18 Calcium Carbonate/Vitamin D3 [Os-Noman 250 mg with Vitamin D 125 Units] 1 tab PO DAILY #30 tablet 03/20/18 Insulin Detemir [Levemir Insulin 100 units/mL] 12 unit SUBCUT DAILY insuln.pen 03/20/18 Meclizine HCl [Antivert 25 mg Tablet] 25 mg PO DAILYP PRN tablet 03/20/18 Oxymetazoline HCl [Nasal [place]] 30 ml NS BID PRN #1 mist 03/20/18 Amlodipine Besylate [Norvasc 10 mg Tablet] 10 mg PO QHS 04/01/18 Cranberry Conc/C/Bacill Coag [AZO Cranberry Tablet] 1 tab PO DAILY 04/01/18 Estropipate [Ogen] 1.5 mg PO MOWEFR@1000 04/01/18 Fluticasone/Salmeterol [Advair 250-50 Diskus 14 Dose/Diskus] 2 puff IH BID 04/01 Furosemide [Lasix 20 mg Tablet] 20 mg PO QAM 04/01/18 Hydroxyzine HCl [Atarax 25 mg Tablet] 1 tab PO Q6HP PRN 04/01/18 Insulin Lispro [Humalog Insulin 100 Unit/1 ml 3 ml Vial] 0 unit SUBCUT .SLD SCALE 04/01/18 Loteprednol Etabonate [Lotemax] 1 applic OU BID 04/01/18 Metoprolol Succinate [Toprol Xl] 50 mg PO QAM 04/01/18 Allergies/Adverse Reactions: aspirin [Aspirin] Allergy (Verified 04/01/18 14:24) codeine Allergy (Verified 04/01/18 14:24) erythromycin base [Erythromycin Base] Allergy (Verified 04/01/18 14:24) ibuprofen [From Motrin] Allergy (Verified 04/01/18 14:24) morphine [Morphine] Allergy (Verified 04/01/18 14:24) Sulfa (Sulfonamide Antibiotics) Allergy (Verified 04/01/18 14:24) Review of Systems Review of Systems: Please see history of present illness and past medical history as wall. Constitutional: chills reported. Fever reported by the patient but temperature has been normal at the hospital. Head : No recent chronic headaches, recent head injury. Eyes: No recent eye pain, diplopia, redness, discharge, acute visual changes. Ears: No recent chronic ear pain, acute hearing loss, ear discharge. Oral cavity: No recent ulcerations, bleeding, oral cavity discomfort. Neck: No recent acute neck pain reported. Hematologic: No recent easy bruising or bleeding. Lymphatic: No recent lymph node enlargement reported. Cardiovascular system review: See history of present illness. Respiratory system review: No hemoptysis or blood clots in the lungs reported. Increasing shortness of breath on exertion Gastrointestinal system review: Negative for any recent acute hematemesis, melena. Genitourinary system review: No recent acute or chronic hematuria, flank pain, UTI etc. reported. Skin system review: Negative for any recent abnormal bruising, no rash, no pruritus reported. Neurologic: No prior history of strokes, mini strokes, seizure disorder. Psychologic: No history of major psychosis or major depression reported. Musculoskeletal: Minor aches and pains reported. No acute joint swelling reported. Endocrine: No recent polyuria, polydipsia, recent heat or cold intolerance. Physical Exam Vital Signs: Temp Pulse Resp BP Pulse Ox 97.8 F 71 22 H 137/49 H 100 04/01/18 19:50 04/01/18 19:50 04/01/18 16:25 04/01/18 19:50 04/01/18 19:50 Intake & Output 03/31/18 04/01/18 04/02/18 06:59 06:59 06:59 Intake Total 400 Balance 400 Weight 66.4 kg General appearance: PRESENT: well-developed, well-nourished, other - Moderate respiratory distress Head exam: PRESENT: atraumatic, normocephalic Eye exam: PRESENT: conjunctiva pink, EOMI, PERRLA. ABSENT: scleral icterus Ear exam: PRESENT: normal external ear exam Mouth exam: PRESENT: moist, tongue midline Neck exam: PRESENT: carotid bruit - Bilateral transmitted carotid bruit from aortic valve noted, JVD - 10-12 cm. ABSENT: lymphadenopathy, thyromegaly Respiratory exam: PRESENT: crackles, prolonged expiratory phas - Bibasilar crackles noted right more than left. ABSENT: rales, rhonchi, wheezes Cardiovascular exam: PRESENT: RRR, +S1, +S2, systolic murmur - 3/6 ejection systolic murmur in aortic area.. ABSENT: diastolic murmur, rubs Pulses: PRESENT: normal carotid pulses, normal dorsalis pedis pul Vascular exam: PRESENT: normal capillary refill GI/Abdominal exam: PRESENT: normal bowel sounds, soft. ABSENT: distended, guarding, mass, organolmegaly, rebound, tenderness Rectal exam: PRESENT: deferred Extremities exam: PRESENT: full ROM. ABSENT: calf tenderness, clubbing, pedal edema Neurological exam: PRESENT: alert, awake, oriented to person, oriented to place , oriented to time, oriented to situation, CN II-XII grossly intact. ABSENT: motor sensory deficit Psychiatric exam: PRESENT: appropriate affect, normal mood. ABSENT: homicidal ideation, suicidal ideation Skin exam: PRESENT: dry, intact, warm. ABSENT: cyanosis, rash Results Laboratory Results: 04/01/18 04/01/18 09:27 14:10 Troponin I 0.142 0.174 EKG Comments: Sinus rhythm with left bundle branch block pattern. Impressions: Chest X-Ray 04/01/18 05:26 IMPRESSION: Developing right-sided pneumonia. Assessment & Plan - Diagnosis (1) Non-STEMI (non-ST elevated myocardial infarction) Is this a current diagnosis for this admission?: Yes (2) CHF (congestive heart failure) Qualifiers: Heart failure type: unspecified Heart failure chronicity: chronic Qualified Code(s): I50.9 - Heart failure, unspecified Is this a current diagnosis for this admission?: Yes (3) Coronary artery disease Qualifiers: Coronary Disease-Associated Artery/Lesion type: [place] artery [place] vs. transplanted heart: [place] heart Associated angina: angina presence unspecified Qualified Code(s): I25.10 - Atherosclerotic heart disease of [place] coronary artery without angina pectoris Is this a current diagnosis for this admission?: Yes (4) Hyperlipidemia Qualifiers: Hyperlipidemia type: unspecified Qualified Code(s): E78.5 - Hyperlipidemia , unspecified Is this a current diagnosis for this admission?: Yes (5) Hypertension Qualifiers: Hypertension type: essential hypertension Qualified Code(s): I10 - Essential (primary) hypertension Is this a current diagnosis for this admission?: Yes (6) Pulmonary edema Qualifiers: Chronicity: acute Qualified Code(s): J81.0 - Acute pulmonary edema Is this a current diagnosis for this admission?: Yes (7) Recurrent pneumonia Is this a current diagnosis for this admission?: Yes (8) Respiratory distress Is this a current diagnosis for this admission?: Yes (9) Valvular heart disease Is this a current diagnosis for this admission?: Yes - Notes Notes: Patient has significant complex cardiac history. Patient has been mainly managed as [facility]. Feel that patient current presentation is due to pulmonary edema and CHF CHF mostly precipitated by volume overload in setting of severe aortic stenosis and moderate aortic incompetence. At this point recommend diuresing and transfer to tertiary care as patient is likely to end up needing aortic valve repair, replacement or repeat balloon dilatation. The hospitalist will try to get in touch with childcare center administrator. Coronary artery disease: Non-STEMI level troponin I rise. EKGs cannot help since patient has left bundle. At this point will start patient on Ranexa, chronic anticoagulation, beta-blockers, YVONNE inhibitor/ARB and hypotensive statins. Severe aortic stenosis: Grave prognosis if patient does not have surgical option. Patient has other numerous multiple problems which are being well managed by the hospitalist. - Time Time Spent: 50 to 70 Minutes Medications reviewed and adjusted accordingly: Yes
--- NOTE | 2018-04-01 21:58 | EKG REPORT ---
SEVERITY:- ABNORMAL ECG - SINUS RHYTHM MULTIPLE ATRIAL PREMATURE COMPLEXES PROBABLE LEFT ATRIAL ABNORMALITY LEFT BUNDLE BRANCH BLOCK : Confirmed by: Francisco J Ferrer 01-Apr-2018 21:58:06
[2018-04-01] MEDS ORDERED: (PENDING PHARMACY ID) (Losartan Potassium [Cozaar] 100 MG) PO SCH (22:00)
[2018-04-01] MEDS ORDERED: AMLODIPINE BESYLATE 5 MG TABLET PO SCH (22:00)
[2018-04-01] MEDS ORDERED: ALPRAZOLAM 0.5 MG TABLET PO SCH (22:00)
[2018-04-01] MEDS: CEFEPIME 2 GM/D5W RTU 2 GM/50 ML RTUPB IV SCH (23:01)
[2018-04-01] MEDS: LOSARTAN POTASSIUM 50 MG TABLET PO SCH (23:04)
[2018-04-01] MEDS: AMLODIPINE BESYLATE 5 MG TABLET PO SCH (23:06)
[2018-04-01] MEDS: ATORVASTATIN CALCIUM 20 MG TABLET PO SCH (23:07)
[2018-04-02] MEDS: RANOLAZINE 500 MG TAB.SR.12H PO SCH ×3 (00:19→21:21)
[2018-04-02] MEDS: SODIUM CHLORIDE NASAL SPRAY 44 ML NASL PRN (00:19)
[2018-04-02] MEDS: FLUTICASONE/SALMETEROL DISKUS 250-50 MCG/DOSE IH SCH ×3 (00:21→21:19)
[2018-04-02] MEDS: GUAIFENESIN 600 MG TABLET.SA PO SCH ×3 (00:22→21:21)
[2018-04-02] MEDS: LEVOTHYROXINE SODIUM 0.075 MG TABLET PO SCH (05:17)
[2018-04-02] MEDS: LANSOPRAZOLE 30 MG TAB.RAP.DR PO SCH (05:17)
[2018-04-02 06:22] LABS: ABSOLUTE BASOPHILS # (AUTO) 0.1 10^3/uL (0.0-0.2); ABSOLUTE EOSINOPHILS # (AUTO) 0.3 10^3/uL (0.0-0.6); ABSOLUTE LYMPHOCYTES (AUTO) 1.2 10^3/uL (0.5-4.7); ABSOLUTE MONOCYTES (AUTO) 0.6 10^3/uL (0.1-1.4); ABSOLUTE NEUT (AUTO) 6.8 10^3/uL (1.7-8.2); BASOPHILS % (AUTO) 1.1 % (0-2); EOSINOPHILS % (AUTO) 2.9 % (0-6); HEMATOCRIT 24.2 % (36.0-47.0); HEMOGLOBIN 8.4 g/dL (12.0-15.5); LYMPHOCYTES % (AUTO) 13.2 % (13-45); MEAN CORPUSCULAR HEMOGLOBIN 29.2 pg (27.0-33.4); MEAN CORPUSCULAR HGB CONC 34.8 g/dL (32.0-36.0); MEAN CORPUSCULAR VOLUME 84 fl (80-97); MONOCYTES % (AUTO) 6.3 % (3-13); PLATELET COUNT 288 10^3/uL (150-450); RED BLOOD COUNT 2.88 10^6/uL (3.72-5.28); RED CELL DISTRIBUTION WIDTH 14.1 % (11.5-14.0); SEGMENTED NEUTROPHILS % (AUTO) 76.5 % (42-78); TOTAL CELLS COUNTED % (AUTO) 100 %; WHITE BLOOD COUNT 8.9 10^3/uL (4.0-10.5)
[2018-04-02 06:41] LABS: ANION GAP 12 (5-19); BLOOD UREA NITROGEN 21 mg/dL (7-20); CALCIUM 9.4 mg/dL (8.4-10.2); CARBON DIOXIDE 29 mmol/L (22-30); CHLORIDE 97 mmol/L (98-107); GLUCOSE 105 mg/dL (75-110); POTASSIUM 4.4 mmol/L (3.6-5.0); SODIUM 137.9 mmol/L (137-145)
[2018-04-02 07:09] LABS: ARTERIAL BLOOD BASE EXCESS 4.1 mmol/L; ARTERIAL BLOOD H2CO3 1.34 mmol/L (1.05-1.35); ARTERIAL BLOOD HCO3 28.9 mmol/L (20-24); ARTERIAL BLOOD O2 SATURATION 98.9 % (94-98); ARTERIAL BLOOD PCO2 44.5 mmHg (35-45); ARTERIAL BLOOD PH 7.43 (7.35-7.45); ARTERIAL BLOOD TOTAL CO2 30.2 mmol/L (21-25)
[2018-04-02 07:11] LABS: ARTERIAL BLOOD FIO2 40%
--- NOTE | 2018-04-02 09:59 | RADIOLOGY REPORT (SQ) ---
EXAM DESCRIPTION: CHEST SINGLE VIEW COMPLETED DATE/TIME: 04/02/2018 9:49 am REASON FOR STUDY: pneumonia COMPARISON: 04/01/2018. EXAM PARAMETERS: NUMBER OF VIEWS: One view. TECHNIQUE: Single frontal radiographic view of the chest acquired. RADIATION DOSE: NA LIMITATIONS: None. FINDINGS: LUNGS AND PLEURA: Improved aeration. Airspace disease in the right lung has improved with faint residual density. Left lung relatively clear. MEDIASTINUM AND HILAR STRUCTURES: No masses. Contour normal. HEART AND VASCULAR STRUCTURES: Stable cardiomegaly. BONES: No acute findings. HARDWARE: None in the chest. OTHER: No other significant finding. IMPRESSION: IMPROVED APPEARANCE OF THE AIRSPACE DISEASE IN THE RIGHT LUNG. TECHNICAL DOCUMENTATION: JOB ID: [id number]- All Rights Reserved Reading location - IP/workstation name: [email or web address]
[2018-04-02] MEDS ORDERED: LEVOFLOXACIN 500 MG/D5W RTU 500 MG/100 ML RTUPB IV SCH (10:00)
--- NOTE | 2018-04-02 10:21 | EKG REPORT ---
SEVERITY:- ABNORMAL ECG - SINUS RHYTHM FIRST DEGREE AV BLOCK LEFT BUNDLE BRANCH BLOCK : Confirmed by: Frnacisco J Ferrer 02-Apr-2018 10:20:32
[2018-04-02] MEDS: CEFEPIME 2 GM/D5W RTU 2 GM/50 ML RTUPB IV SCH ×2 (10:31→21:22)
[2018-04-02] MEDS: LORAZEPAM INJ 2 MG/1 ML VIAL IV PRN ×2 (10:33→16:46)
[2018-04-02] MEDS: POLYETHYLENE GLYCOL 3350 POWDER 17 GM/1 PACKET PO SCH (10:36)
[2018-04-02] MEDS: METOPROLOL SUCCINATE 50 MG TAB.SR.24H PO SCH (10:37)
[2018-04-02] MEDS: CLOPIDOGREL BISULFATE 75 MG TABLET PO SCH (10:37)
[2018-04-02] MEDS: CALCIUM CARBONATE 250 MG/VITAMIN D3 125 UNIT TABLET PO SCH (10:37)
[2018-04-02] MEDS: ZINC SULFATE 220 MG CAPSULE PO SCH ×2 (10:37→19:06)
[2018-04-02] MEDS: OMEGA-3 ACID ETHYL ESTERS 1 GM CAPSULE PO SCH (10:37)
[2018-04-02] MEDS: FERROUS SULFATE 325 MG TABLET PO SCH ×2 (10:37→19:07)
[2018-04-02] MEDS: ASCORBIC ACID 500 MG TABLET PO SCH (10:38)
[2018-04-02] MEDS: SERTRALINE HCL 50 MG TABLET PO SCH (10:38)
[2018-04-02] MEDS: ENOXAPARIN SODIUM INJ 30 MG/0.3 ML DISP.SYRIN SUBCUT SCH (10:41)
[2018-04-02] MEDS: INSULIN DETEMIR 100 UNIT/ML 3 ML PEN SUBCUT SCH (10:41)
[2018-04-02] MEDS ORDERED: FUROSEMIDE INJ/PF 40 MG/4 ML SDV IV ONE (11:42)
[2018-04-02] MEDS ORDERED: BISACODYL 10 MG SUPP.RECT PR PRN (11:44)
[2018-04-02] MEDS ORDERED: MINERAL OIL ENEMA 133 ML PR PRN (11:45)
[2018-04-02] MEDS: VANCOMYCIN HCL 1,000 MG in DEXTROSE 5%-WATER 250 ML IV SCH (12:00)
--- NOTE | 2018-04-02 13:44 | PDOC PROGRESS REPORT ---
Subjective Progress Note for:: 04/02/18 Subjective:: Patient does not feel well today. She does note that she has not had a bowel movement since Thursday. From a respiratory standpoint she is off of her BiPAP and tolerating nasal cannula oxygen. Reason For Visit: PNEUMONIA Physical Exam Vital Signs: Temp Pulse Resp BP Pulse Ox 99.4 F 85 18 127/52 H 97 04/02/18 11:56 04/02/18 11:56 04/02/18 11:56 04/02/18 11:56 04/02/18 11:56 Intake & Output 04/01/18 04/02/18 04/03/18 06:59 06:59 06:59 Intake Total 450 100 Balance 450 100 Weight 66.7 kg General appearance: PRESENT: no acute distress, well-developed Head exam: PRESENT: atraumatic, normocephalic Eye exam: PRESENT: conjunctiva pale. ABSENT: scleral icterus Ear exam: PRESENT: normal external ear exam Mouth exam: PRESENT: moist, neck supple Neck exam: PRESENT: carotid bruit. ABSENT: lymphadenopathy Respiratory exam: PRESENT: rales, symmetrical, unlabored. ABSENT: chest wall tenderness, rhonchi Cardiovascular exam: PRESENT: RRR, +S1, +S2, systolic murmur GI/Abdominal exam: PRESENT: normal bowel sounds, soft, tenderness Extremities exam: PRESENT: pedal edema Musculoskeletal exam: PRESENT: other - Decreased muscle mass Neurological exam: PRESENT: alert, awake, oriented to person, oriented to place , oriented to time, oriented to situation Psychiatric exam: PRESENT: depressed, other - Depressed mood with appropriate affect Results Laboratory Results: 04/02/18 06:00 04/02/18 06:00 04/02/18 04/02/18 04/02/18 06:00 06:00 06:50 WBC 8.9 RBC 2.88 L Hgb 8.4 L Hct 24.2 L MCV 84 MCH 29.2 MCHC 34.8 RDW 14.1 H Plt Count 288 Seg Neutrophils % 76.5 Lymphocytes % 13.2 Monocytes % 6.3 Eosinophils % 2.9 Basophils % 1.1 Absolute Neutrophils 6.8 Absolute Lymphocytes 1.2 Absolute Monocytes 0.6 Absolute Eosinophils 0.3 Absolute Basophils 0.1 Carbonic Acid 1.34 HCO3/H2CO3 Ratio 21:1 ABG pH 7.43 ABG pCO2 44.5 ABG pO2 143.0 H ABG HCO3 28.9 H ABG O2 Saturation 98.9 H ABG Base Excess 4.1 FiO2 40% Sodium 137.9 Potassium 4.4 Chloride 97 L Carbon Dioxide 29 Anion Gap 12 BUN 21 H Creatinine 0.69 Est GFR ( Amer) > 60 Est GFR (Non-Af Amer) > 60 Glucose 105 Calcium 9.4 04/01/18 04/01/18 04/02/18 09:27 14:10 06:00 Troponin I 0.142 0.174 NT-Pro-B Natriuret Pep 4310 H Impressions: Chest X-Ray 04/02/18 06:00 IMPRESSION: IMPROVED APPEARANCE OF THE AIRSPACE DISEASE IN THE RIGHT LUNG. Assessment & Plan - Diagnosis (1) Aortic stenosis Qualifiers: Cardiac valve disease etiology: etiology unspecified Qualified Code(s): I35.0 - Nonrheumatic aortic (valve) stenosis Is this a current diagnosis for this admission?: Yes Plan: 04/01/2018-patient has had aortic valvuloplasty x2. Her states that her livestock slaughterer from [place] was going to see her at his local clinic next month. Her troponins increase excessively with each test. Her third troponin was 0.174 with her second being 0.142. As these are positive I did ask Dr. Ferrer for a consultation. Despite 2 valvuloplasties a recent echocardiogram earlier this month revealed peak pressures of 75. Because of the troponins and ongoing aortic stenosis as well as her overall cardiac history I contacted cardiology at [facility] where her primary livestock slaughterer is. After discussion with Dr. Londono the on-call livestock slaughterer he declined to accept the patient in transfer. While the patient was therefore her recent heart attack in December she was seen by palliative care and cardiology informed her that she was not a candidate for any further procedures including balloon valvuloplasty. The patient's was under the impression that the follow- up visit in April was to reassess her for valvuloplasty however Dr. Londono' s review of the notes from her recent hospitalization indicated otherwise. I had a long discussion with the patient and her . The patient in fact does have an advanced directive stating that she is DNR however at this admission they informed me that she wanted to be a full code. I spent 35 minutes specifically discussing her CODE STATUS after cardiology at [facility] refused to accept the patient. This was a very upsetting discussion for her but I did ask them to consider returning to her DNR status. 04/02/2018-the patient clearly is still depressed because of yesterday's discussion. However after consideration and further discussion she does wish to change her CODE STATUS to DNR. Again I told her that this will not change her current treatment plan including her antibiotics and cardiac medications. She is responding nicely and she will likely recover from this episode but her history reveals multiple admissions this year with decreasing windows between each admission. (2) Non-STEMI (non-ST elevated myocardial infarction) Is this a current diagnosis for this admission?: Yes Plan: 04/01/2018-the patient's cardiac enzymes trended upward with the third test being 0.172. She has significant cardiac history and was supposedly going to be evaluated with her livestock slaughterer from [facility] when he is here having his local clinic in April. Dr. Orellana saw the patient for cardiology. The decision was made to refer her back to [facility] because that is where she has had her balloon angioplasties as well as the location of her primary livestock slaughterer. That is where she transferred to when she had her acute myocardial infarction in December. The livestock slaughterer battery container inspector reviewed the notes from her most recent hospitalization. Palliative care met with the patient and discussed the fact that cardiology had no further interventions to offer. Despite the positive troponins in the refusal for transfer the patient will remain here. She currently remains pain-free. See additional discussion below. 04/02/2018-I have not ordered additional troponin studies since our intervention will be no different. The patient remains pain-free. She did change her CODE STATUS to DNR but will continue her cardiac medications without change. These include her metoprolol, Ranexa, amlodipine and furosemide as well as her antiplatelet therapy. (3) Pneumonia Qualifiers: Pneumonia type: due to unspecified organism Laterality: right Lung location: unspecified part of lung Qualified Code(s): J18.9 - Pneumonia, unspecified organism Is this a current diagnosis for this admission?: Yes Plan: 04/01/2018-there was a question of previous aspiration as well as her recent hospitalization earlier this month. With her elevated white count and abnormal chest x-ray she will be started on cefepime and vancomycin. 04/02/2018-the patient continues on cefepime and vancomycin. She was hospitalized earlier this month and has been a short interval between hospitalization so this is possibly aspiration with her weakened state versus healthcare acquired. Her white cell count decreased from 19,000-8000 which is excellent. We will continue her current antibiotics and change to oral antibiotics in a day or 2. (4) Acute on chronic combined systolic and diastolic CHF (congestive heart failure) Is this a current diagnosis for this admission?: Yes Plan: 04/01/2018-although this initially appears to be a primary pneumonia the patient has a significant cardiac history and I have asked Dr. Ferrer for a cardiology consult. Please also see his note. I will order her baseline medications at her home doses for the time being and reevaluate. 04/02/2018-the patient has a significant cardiac history with her aortic stenosis, recent myocardial infarction and atherosclerosis with stent placement. 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 She may need a higher dose as her baseline. (5) Acute and chronic respiratory failure with hypoxia Is this a current diagnosis for this admission?: Yes Plan: 04/01/2018-the patient's reports that he had to increase her oxygen from 2-3 L/min by nasal cannula at home several days ago. BiPAP has been started. She is tolerating it well. She remains on her Advair with DuoNeb therapy available if needed. 04/02/2018-the patient is currently off of BiPAP and tolerating nasal cannula oxygen at 5 L/min. She will get additional Lasix as noted above. We will continue the antibiotics for her pneumonia also. - Time Time Spent with patient: 35 or more minutes Medications reviewed and adjusted accordingly: Yes
--- NOTE | 2018-04-02 14:07 | PDOC H&P ---
History of Present Illness Admission Date/PCP: 04/01/18 08:06 MAJOR WORKMAN MD History of Present Illness: FARHEEN AGUILAR is a 83 year old female Past Medical History Cardiac Medical History: Reports: Atrial Fibrillation, Congestive Heart Failure , Myocardial Infarction - non-stemi, Hyperlipidema, Hypertension Pulmonary Medical History: Reports: Chronic Obstructive Pulmonary Disease (COPD) , Pneumonia - Recurrent, Sleep Apnea - Likely. The patient is to go for a sleep study as outpatient. Endocrine Medical History: Reports: Diabetes Mellitus Type 2, Hypothyroidism Musculoskeltal Medical History: Reports: Arthritis Psychiatric Medical History: Reports: Depression - anxiety Traumatic Medical History: Denies: Gunshot Wound, Traumatic Brain Injury Hematology: Denies: Hemophilia, Sickle Cell Disease, Bleeding Tendencies Infectious Medical History: Denies: Clostridium Difficile Past Surgical History Past Surgical History: Reports: Cholecystectomy, Coronary Stent, Hysterectomy, Other - Valvuloplasty at [facility] Social History Smoking Status: Never Smoker Frequency of Alcohol Use: None Hx Recreational Drug Use: No Drugs: None Hx Prescription Drug Abuse: No - Advance Directive Resuscitation Status: Full Code Family History Family History: COPD, Hypertension, Malignancy Parental Family History Reviewed: Yes Children Family History Reviewed: Yes Sibling(s) Family History Reviewed.: Yes Medication/Allergy Home Medications: Ascorbic Acid [Vitamin C 500 mg Tablet] 500 mg PO DAILY 12/19/17 Atorvastatin Calcium [Lipitor 20 mg Tablet] 20 mg PO WSUPPER 12/19/17 Clopidogrel Bisulfate [Plavix 75 mg Tablet] 75 mg PO DAILY 12/19/17 Ferrous Sulfate [Feosol] 325 mg PO DAILY 12/19/17 Ipratropium/Albuterol Sulfate [Duoneb 3 ml Ampul] 3 ml NEB RTQ6HP PRN 12/19/17 Levothyroxine Sodium [Synthroid] 75 mcg PO Q6AM 12/19/17 Losartan Potassium [Cozaar] 100 mg PO QHS 12/19/17 Nitroglycerin [Nitrostat 0.4 mg (1/150 Gr) Tabs 25/Bottle] 1 tab SL Q5MP PRN Pep-3 Acid Ethyl Esters [Lovaza 1 gm Capsule] 1 gm PO DAILY 12/19/17 Ondansetron HCl [Zofran 4 mg Tablet] 4 mg PO Q6HP PRN 12/19/17 Oxycodone HCl/Acetaminophen [Percocet 7.5-325 mg Tablet] 1 tab PO Q6HP PRN 12/19 Ubidecarenone [Coenzyme Q-10] 200 mg PO DAILY 12/19/17 Zinc Sulfate [Zinc-220 Capsule] 220 mg PO BID 12/19/17 Acetaminophen [Tylenol 325 mg Tablet] 650 mg PO Q4HP PRN 03/15/18 Pantoprazole Sodium [Protonix] 40 mg PO DAILY 03/15/18 Sertraline HCl 75 mg PO DAILY 03/15/18 Sodium Chloride [Rosepine Nasal [place] 44 ml Bottle] 1 spray NASL Q4HP PRN 03/15/18 Calcium Carbonate/Vitamin D3 [Os-Noman 250 mg with Vitamin D 125 Units] 1 tab PO DAILY #30 tablet 03/20/18 Insulin Detemir [Levemir Insulin 100 units/mL] 12 unit SUBCUT DAILY insuln.pen 03/20/18 Meclizine HCl [Antivert 25 mg Tablet] 25 mg PO DAILYP PRN tablet 03/20/18 Oxymetazoline HCl [Nasal [place]] 30 ml NS BID PRN #1 mist 03/20/18 Amlodipine Besylate [Norvasc 10 mg Tablet] 10 mg PO QHS 04/01/18 Cranberry Conc/C/Bacill Coag [AZO Cranberry Tablet] 1 tab PO DAILY 04/01/18 Estropipate [Ogen] 1.5 mg PO MOWEFR@1000 04/01/18 Fluticasone/Salmeterol [Advair 250-50 Diskus 14 Dose/Diskus] 2 puff IH BID 04/01 Furosemide [Lasix 20 mg Tablet] 20 mg PO QAM 04/01/18 Hydroxyzine HCl [Atarax 25 mg Tablet] 1 tab PO Q6HP PRN 04/01/18 Insulin Lispro [Humalog Insulin 100 Unit/1 ml 3 ml Vial] 0 unit SUBCUT .SLD SCALE 04/01/18 Loteprednol Etabonate [Lotemax] 1 applic OU BID 04/01/18 Metoprolol Succinate [Toprol Xl] 50 mg PO QAM 04/01/18 Allergies/Adverse Reactions: aspirin [Aspirin] Allergy (Verified 04/01/18 14:24) codeine Allergy (Verified 04/01/18 14:24) erythromycin base [Erythromycin Base] Allergy (Verified 04/01/18 14:24) ibuprofen [From Motrin] Allergy (Verified 04/01/18 14:24) morphine [Morphine] Allergy (Verified 04/01/18 14:24) Sulfa (Sulfonamide Antibiotics) Allergy (Verified 04/01/18 14:24) Review of Systems Constitutional: PRESENT: as per HPI Eyes: ABSENT: visual disturbances Ears: ABSENT: hearing changes Nose, Mouth, and Throat: ABSENT: headache(s), mouth pain, sore throat Breasts: ABSENT: other Cardiovascular: PRESENT: as per HPI Respiratory: PRESENT: as per HPI Gastrointestinal: PRESENT: constipation Genitourinary: ABSENT: dysuria, hematuria Musculoskeletal: PRESENT: muscle weakness Integumentary: ABSENT: rash, wounds Neurological: ABSENT: abnormal gait, abnormal speech, confusion, dizziness, focal weakness, syncope Psychiatric: PRESENT: depression Endocrine: ABSENT: cold intolerance, flushing, heat intolerance Hematologic/Lymphatic: ABSENT: easy bleeding, easy bruising Allergic/Immunologic: ABSENT: seasonal rhinorrhea Physical Exam Vital Signs: Temp Pulse Resp BP Pulse Ox 97.9 F 85 20 117/43 L 96 04/01/18 09:52 04/01/18 09:52 04/01/18 09:52 04/01/18 09:52 04/01/18 09:52 Intake & Output 03/31/18 04/01/18 04/02/18 06:59 06:59 06:59 Weight 66.4 kg General appearance: PRESENT: cooperative, mild distress Head exam: PRESENT: atraumatic, normocephalic Eye exam: PRESENT: conjunctiva pale, EOMI. ABSENT: periorbital swelling, scleral icterus Ear exam: PRESENT: normal external ear exam Mouth exam: PRESENT: moist, neck supple, tongue midline Teeth exam: ABSENT: dental tenderness Throat exam: ABSENT: tonsillar erythema, tonsillar exudate Neck exam: PRESENT: carotid bruit. ABSENT: tenderness, thyromegaly Respiratory exam: PRESENT: rales. ABSENT: prolonged expiratory phas, retraction Cardiovascular exam: PRESENT: RRR, +S1, +S2, systolic murmur Pulses: PRESENT: normal carotid pulses, normal radial pulses GI/Abdominal exam: PRESENT: normal bowel sounds, soft. ABSENT: distended, guarding, tenderness Rectal exam: PRESENT: deferred Extremities exam: ABSENT: calf tenderness, joint swelling Musculoskeletal exam: PRESENT: other - Decreased muscle mass Neurological exam: PRESENT: alert, awake, oriented to person, oriented to place , oriented to time, oriented to situation Psychiatric exam: PRESENT: flat affect Skin exam: PRESENT: dry, intact, warm. ABSENT: cyanosis, rash Results Laboratory Results: 04/01/18 09:27 Troponin I 0.142 Impressions: Chest X-Ray 04/01/18 05:26 IMPRESSION: Developing right-sided pneumonia. Assessment & Plan - Diagnosis (1) Pneumonia Qualifiers: Pneumonia type: due to unspecified organism Laterality: right Lung location: unspecified part of lung Qualified Code(s): J18.9 - Pneumonia, unspecified organism Is this a current diagnosis for this admission?: Yes Plan: 04/01/2018-there was a question of previous aspiration as well as her recent hospitalization earlier this month. With her elevated white count and abnormal chest x-ray she will be started on cefepime and vancomycin. Unfortunately she does not have a productive cough and there is no sputum available. (2) Aortic stenosis Qualifiers: Cardiac valve disease etiology: etiology unspecified Qualified Code(s): I35.0 - Nonrheumatic aortic (valve) stenosis Is this a current diagnosis for this admission?: Yes Plan: 04/01/2018-patient has had aortic valvuloplasty x2. Her states that her odd jobs day worker from [place] was going to see her at his local clinic next month. Her troponins increase excessively with each test. Her third troponin was 0.174 with her second being 0.142. As these are positive I did ask Dr. Ferrer for a consultation. Despite 2 valvuloplasties a recent echocardiogram earlier this month revealed peak pressures of 75. Because of the troponins and ongoing aortic stenosis as well as her overall cardiac history I contacted cardiology at [facility] where her primary odd jobs day worker is. After discussion with Dr. Londono the on-call odd jobs day worker he declined to accept the patient in transfer. While the patient was therefore her recent heart attack in December she was seen by palliative care and cardiology informed her that she was not a candidate for any further procedures including balloon valvuloplasty. The patient's was under the impression that the follow- up visit in April was to reassess her for valvuloplasty however Dr. Londono' s review of the notes from her recent hospitalization indicated otherwise. I had a long discussion with the patient and her . The patient in fact does have an advanced directive stating that she is DNR however at this admission they informed me that she wanted to be a full code. I spent 35 minutes specifically discussing her CODE STATUS after cardiology at [facility] refused to accept the patient. This was a very upsetting discussion for her but I did ask them to consider returning to her DNR status. 04/02/2018-the patient clearly is still depressed because of yesterday's discussion. However after consideration and further discussion she does wish to change her CODE STATUS to DNR. Again I told her that this will not change her current treatment plan including her antibiotics and cardiac medications. She is responding nicely and she will likely recover from this episode but her history reveals multiple admissions this year with decreasing windows between each admission. (3) Acute and chronic respiratory failure with hypoxia Is this a current diagnosis for this admission?: Yes Plan: 04/01/2018-the patient's reports that he had to increase her oxygen from 2-3 L/min by nasal cannula at home several days ago. BiPAP has been started. She is tolerating it well. She remains on her Advair with DuoNeb therapy available if needed. (4) Acute on chronic combined systolic and diastolic CHF (congestive heart failure) Is this a current diagnosis for this admission?: Yes Plan: 04/01/2018-patient has a history of chronic obstructive pulmonary disease and is on Advair at home. It appears that the pneumonia has caused an exacerbation of her chronic obstructive pulmonary disease as well. In addition to continuing her Advair therapy she has duo nebs available if needed. At this point I do not think parenteral steroids would be of any additional benefit. - Time Time Spent: Greater than 70 Minutes Medications reviewed and adjusted accordingly: Yes - Inpatient Certification Based on my medical assessment, after consideration of the patient's comorbidities, presenting symptoms, or acuity I expect that the services needed warrant INPATIENT care.: Yes I certify that my determination is in accordance with my understanding of Medicare's requirements for reasonable and necessary INPATIENT services [42 CFR 412.3e].: Yes Medical Necessity: Significant Comorbidiites Make Outpatient Treatment Too Risky , Need Close Monitoring Due to Risk of Patient Decompensation, Need For Continuous Telemetry Monitoring, Need for IV Antibiotics, Risk of Complication if Not Cared For in Hospital
[2018-04-02] MEDS: HYDROMORPHONE HCL INJ/PF 2 MG/ML AMPULE ONE ×2 (18:07→19:07)
[2018-04-02] MEDS ORDERED: HYDROMORPHONE HCL INJ/PF 2 MG/ML AMPULE ONE (19:03)
[2018-04-02] MEDS: ONDANSETRON HCL INJ/PF 4 MG/2 ML SDV IV PRN (19:18)
[2018-04-02] MEDS ORDERED: HYDROMORPHONE HCL INJ/PF 2 MG/ML AMPULE IV PRN (20:55)
[2018-04-02] MEDS: HYDROXYZINE HCL 10 MG TABLET PO PRN (21:20)
[2018-04-02] MEDS: AMLODIPINE BESYLATE 5 MG TABLET PO SCH (21:21)
[2018-04-02] MEDS: LOSARTAN POTASSIUM 50 MG TABLET PO SCH (21:21)
[2018-04-02] MEDS: OXYCODONE-ACETAMINOPHEN 5-325 MG TABLET PO PRN (21:24)
[2018-04-02] MEDS: ATORVASTATIN CALCIUM 20 MG TABLET PO SCH (21:25)
--- NOTE | 2018-04-02 22:19 | PDOC PROGRESS REPORT ---
Subjective Progress Note for:: 04/02/18 Subjective:: Patient feels better as regards respiratory status. She is breathing without CPAP. Patient is denying any chest pain. Patient has however noted some constipation. Telemetry shows patient maintaining sinus rhythm. Reason For Visit: PNEUMONIA Physical Exam Vital Signs: Temp Pulse Resp BP Pulse Ox 98.7 F 76 18 125/44 L 100 04/02/18 19:53 04/02/18 19:53 04/02/18 19:53 04/02/18 19:53 04/02/18 19:53 Intake & Output 04/01/18 04/02/18 04/03/18 06:59 06:59 06:59 Intake Total 450 750 Balance 450 750 Weight 66.7 kg Exam: GENERAL: well-nourished and in no acute distress. Alert and oriented x3 HEAD: Atraumatic, normocephalic. EYES: Pupils equal round and reactive to light, extraocular movements intact, sclera anicteric, conjunctiva are normal. ENT: TMs normal, nares patent, oropharynx clear without exudates. Moist mucous membranes. No oral ulcerations or bleeding gums noted NECK: supple without lymphadenopathy. Trachea is central. No cervical or axillary lymphadenopathy noted. Carotids are 2+, JVD WNL LUNGS: Respiration seems nonlabored, no significant accessory muscle action noted. Bibasilar fine crackles are noted. No wheezes rales or rhonchi noted. No significant dullness noted on percussion. CHEST: Palpation of the chest wall shows no significant chest wall tenderness. HEART: [place] [employer], No PSH, 3/6 DIYA aortic area, 1/6 jay systolic murmur mitral area , no rubs, no gallops. ABDOMEN: Soft, no significant tenderness appreciated, normoactive bowel sounds. No guarding, no rebound. No rigidity noted . No masses appreciated. EXTREMITIES: Pedal pulses are 1-2+, no calf tenderness noted. No clubbing or cyanosis. 1+ pedal edema noted NEUROLOGICAL: Focused neurological exam showed no significant neurologic deficit. Normal speech, no focal weakness appreciated. PSYCH: Normal mood, normal affect. Judgment and insight within normal limits. SKIN: No significant ecchymosis, skin is noted to be warm. MUSCULOSKELETAL EXAM: No significant acute joint swelling noted. Results Laboratory Results: 04/02/18 06:00 04/02/18 06:00 04/02/18 04/02/18 04/02/18 06:00 06:00 06:50 WBC 8.9 RBC 2.88 L Hgb 8.4 L Hct 24.2 L MCV 84 MCH 29.2 MCHC 34.8 RDW 14.1 H Plt Count 288 Seg Neutrophils % 76.5 Lymphocytes % 13.2 Monocytes % 6.3 Eosinophils % 2.9 Basophils % 1.1 Absolute Neutrophils 6.8 Absolute Lymphocytes 1.2 Absolute Monocytes 0.6 Absolute Eosinophils 0.3 Absolute Basophils 0.1 Carbonic Acid 1.34 HCO3/H2CO3 Ratio 21:1 ABG pH 7.43 ABG pCO2 44.5 ABG pO2 143.0 H ABG HCO3 28.9 H ABG O2 Saturation 98.9 H ABG Base Excess 4.1 FiO2 40% Sodium 137.9 Potassium 4.4 Chloride 97 L Carbon Dioxide 29 Anion Gap 12 BUN 21 H Creatinine 0.69 Est GFR ( Amer) > 60 Est GFR (Non-Af Amer) > 60 Glucose 105 Calcium 9.4 04/01/18 04/01/18 04/02/18 09:27 14:10 06:00 Troponin I 0.142 0.174 NT-Pro-B Natriuret Pep 4310 H EKG Comments: Telemetry shows sinus rhythm without any significant bradycardia or tachyarrhythmias. Impressions: Chest X-Ray 04/02/18 06:00 IMPRESSION: IMPROVED APPEARANCE OF THE AIRSPACE DISEASE IN THE RIGHT LUNG. Assessment & Plan - Diagnosis (1) Non-STEMI (non-ST elevated myocardial infarction) Is this a current diagnosis for this admission?: Yes (2) CHF (congestive heart failure) Qualifiers: Heart failure type: unspecified Heart failure chronicity: chronic Qualified Code(s): I50.9 - Heart failure, unspecified Is this a current diagnosis for this admission?: Yes (3) Coronary artery disease Qualifiers: Coronary Disease-Associated Artery/Lesion type: tribe artery [place] vs. transplanted heart: tribe heart Associated angina: angina presence unspecified Qualified Code(s): I25.10 - Atherosclerotic heart disease of tribe coronary artery without angina pectoris Is this a current diagnosis for this admission?: Yes (4) Hyperlipidemia Qualifiers: Hyperlipidemia type: unspecified Qualified Code(s): E78.5 - Hyperlipidemia , unspecified Is this a current diagnosis for this admission?: Yes (5) Hypertension Qualifiers: Hypertension type: essential hypertension Qualified Code(s): I10 - Essential (primary) hypertension Is this a current diagnosis for this admission?: Yes (6) Pulmonary edema Qualifiers: Chronicity: acute Qualified Code(s): J81.0 - Acute pulmonary edema Is this a current diagnosis for this admission?: Yes (7) Recurrent pneumonia Is this a current diagnosis for this admission?: Yes (8) Respiratory distress Is this a current diagnosis for this admission?: Yes (9) Valvular heart disease Is this a current diagnosis for this admission?: Yes - Notes Notes: Patient has generally improved in clinical status. I had a long discussion they want to continue to stay at this hospital and see Dr. Porter as an outpatient. Patient's medical regimen was optimized. Patient was placed on Ranexa yesterday which she seems to be tolerating. Aggressive risk factor modification , management of underlying CAD. - Time Time with patient: Greater than 35 minutes Medications reviewed and adjusted accordingly: Yes
[2018-04-03 05:10] LABS: HEMATOCRIT 24.7 % (36.0-47.0); HEMOGLOBIN 8.6 g/dL (12.0-15.5); MEAN CORPUSCULAR HEMOGLOBIN 28.8 pg (27.0-33.4); MEAN CORPUSCULAR HGB CONC 34.7 g/dL (32.0-36.0); MEAN CORPUSCULAR VOLUME 83 fl (80-97); PLATELET COUNT 305 10^3/uL (150-450); RED BLOOD COUNT 2.97 10^6/uL (3.72-5.28); RED CELL DISTRIBUTION WIDTH 13.9 % (11.5-14.0); WHITE BLOOD COUNT 9.7 10^3/uL (4.0-10.5)
[2018-04-03 05:34] LABS: ANION GAP 15 (5-19); BLOOD UREA NITROGEN 19 mg/dL (7-20); CALCIUM 9.4 mg/dL (8.4-10.2); CARBON DIOXIDE 29 mmol/L (22-30); CHLORIDE 96 mmol/L (98-107); GLUCOSE 96 mg/dL (75-110); POTASSIUM 4.2 mmol/L (3.6-5.0); SODIUM 139.9 mmol/L (137-145)
[2018-04-03] MEDS: OXYCODONE-ACETAMINOPHEN 5-325 MG TABLET PO PRN ×2 (06:25→14:18)
[2018-04-03] MEDS: LANSOPRAZOLE 30 MG TAB.RAP.DR PO SCH (06:25)
[2018-04-03] MEDS: HYDROXYZINE HCL 10 MG TABLET PO PRN ×2 (06:26→14:19)
[2018-04-03] MEDS: LEVOTHYROXINE SODIUM 0.075 MG TABLET PO SCH (06:27)
[2018-04-03] MEDS: SODIUM CHLORIDE NASAL SPRAY 44 ML NASL PRN (08:00)
[2018-04-03] MEDS: POLYETHYLENE GLYCOL 3350 POWDER 17 GM/1 PACKET PO SCH (10:45)
[2018-04-03] MEDS: OMEGA-3 ACID ETHYL ESTERS 1 GM CAPSULE PO SCH (10:46)
[2018-04-03] MEDS: FLUTICASONE/SALMETEROL DISKUS 250-50 MCG/DOSE IH SCH (10:46)
[2018-04-03] MEDS: FERROUS SULFATE 325 MG TABLET PO SCH (10:46)
[2018-04-03] MEDS: GUAIFENESIN 600 MG TABLET.SA PO SCH (10:47)
[2018-04-03] MEDS: CLOPIDOGREL BISULFATE 75 MG TABLET PO SCH (10:47)
[2018-04-03] MEDS: ENOXAPARIN SODIUM INJ 30 MG/0.3 ML DISP.SYRIN SUBCUT SCH (10:47)
[2018-04-03] MEDS: CALCIUM CARBONATE 250 MG/VITAMIN D3 125 UNIT TABLET PO SCH (10:47)
[2018-04-03] MEDS: RANOLAZINE 500 MG TAB.SR.12H PO SCH (10:50)
[2018-04-03] MEDS: CEFEPIME 2 GM/D5W RTU 2 GM/50 ML RTUPB IV SCH (10:50)
[2018-04-03] MEDS: ZINC SULFATE 220 MG CAPSULE PO SCH (10:51)
[2018-04-03] MEDS: ASCORBIC ACID 500 MG TABLET PO SCH (10:51)
[2018-04-03] MEDS: SERTRALINE HCL 50 MG TABLET PO SCH (10:52)
[2018-04-03] MEDS ORDERED: METOPROLOL SUCCINATE 50 MG TAB.SR.24H PO SCH (10:53)
[2018-04-03] MEDS: FUROSEMIDE 40 MG TABLET PO SCH (10:54)
[2018-04-03] MEDS ORDERED: METOPROLOL SUCCINATE 25 MG TAB.SR.24H PO SCH (12:00)
[2018-04-03] MEDS: INSULIN DETEMIR 100 UNIT/ML 3 ML PEN SUBCUT SCH (12:11)
[2018-04-03] MEDS: VANCOMYCIN HCL 1,000 MG in DEXTROSE 5%-WATER 250 ML IV SCH (12:12)
--- NOTE | 2018-04-03 14:26 | EKG REPORT ---
SEVERITY:- ABNORMAL ECG - SINUS RHYTHM MOBITZ II AV BLOCK PROBABLE LEFT ATRIAL ABNORMALITY LEFT BUNDLE BRANCH BLOCK : Confirmed by: Francisco J Ferrer 03-Apr-2018 14:25:47
--- NOTE | 2018-04-03 14:26 | PDOC TRANSFER SUMMARY ---
General Admission Date/PCP: 04/01/18 08:06 MAJOR WORKMAN MD Resuscitation Status: Full Code - Transfer Diagnosis (1) Non-STEMI (non-ST elevated myocardial infarction) Is this a current diagnosis for this admission?: Yes (2) Pneumonia Is this a current diagnosis for this admission?: Yes (3) Acute and chronic respiratory failure with hypoxia Is this a current diagnosis for this admission?: Yes (4) Acute on chronic combined systolic and diastolic CHF (congestive heart failure) Is this a current diagnosis for this admission?: Yes (5) Bacteremia Is this a current diagnosis for this admission?: Yes - Transfer Medications Home Medications: Ascorbic Acid [Vitamin C 500 mg Tablet] 500 mg PO DAILY 12/19/17 Atorvastatin Calcium [Lipitor 20 mg Tablet] 20 mg PO WSUPPER 12/19/17 Clopidogrel Bisulfate [Plavix 75 mg Tablet] 75 mg PO DAILY 12/19/17 Ferrous Sulfate [Feosol] 325 mg PO DAILY 12/19/17 Ipratropium/Albuterol Sulfate [Duoneb 3 ml Ampul] 3 ml NEB RTQ6HP PRN 12/19/17 Levothyroxine Sodium [Synthroid] 75 mcg PO Q6AM 12/19/17 Losartan Potassium [Cozaar] 100 mg PO QHS 12/19/17 Nitroglycerin [Nitrostat 0.4 mg (1/150 Gr) Tabs 25/Bottle] 1 tab SL Q5MP PRN [place]-3 Acid Ethyl Esters [Lovaza 1 gm Capsule] 1 gm PO DAILY 12/19/17 Ondansetron HCl [Zofran 4 mg Tablet] 4 mg PO Q6HP PRN 12/19/17 Oxycodone HCl/Acetaminophen [Percocet 7.5-325 mg Tablet] 1 tab PO Q6HP PRN 12/19 Ubidecarenone [Coenzyme Q-10] 200 mg PO DAILY 12/19/17 Zinc Sulfate [Zinc-220 Capsule] 220 mg PO BID 12/19/17 Acetaminophen [Tylenol 325 mg Tablet] 650 mg PO Q4HP PRN 03/15/18 Pantoprazole Sodium [Protonix] 40 mg PO DAILY 03/15/18 Sertraline HCl 75 mg PO DAILY 03/15/18 Sodium Chloride [[place] Nasal [place] 44 ml Bottle] 1 spray NASL Q4HP PRN 03/15/18 Amlodipine Besylate [Norvasc 10 mg Tablet] 10 mg PO QHS 04/01/18 Cranberry Conc/C/Bacill Coag [AZO Cranberry Tablet] 1 tab PO DAILY 04/01/18 Estropipate [Ogen] 1.5 mg PO MOWEFR@1000 04/01/18 Fluticasone/Salmeterol [Advair 250-50 Diskus 14 Dose/Diskus] 2 puff IH BID 04/01 Furosemide [Lasix 20 mg Tablet] 20 mg PO QAM 04/01/18 Hydroxyzine HCl [Atarax 25 mg Tablet] 1 tab PO Q6HP PRN 04/01/18 Insulin Lispro [Humalog Insulin 100 Unit/1 ml 3 ml Vial] 0 unit SUBCUT .SLD SCALE 04/01/18 Loteprednol Etabonate [Lotemax] 1 applic OU BID 04/01/18 Metoprolol Succinate [Toprol Xl] 50 mg PO QAM 04/01/18 Transfer Medications: Current Medications Acetaminophen (Tylenol 325 Mg Tablet) 650 mg PO Q4HP PRN PRN Reason: fever/pain Stop: 05/01/18 09:14 Albuterol/Ipratropium (Duoneb 3 Ml Ampul) 3 ml NEB RTQ6HP PRN PRN Reason: SHORTNESS OF BREATH Stop: 05/01/18 09:14 Last Admin: 04/03/18 08:07 Dose: 3 ml Amlodipine Besylate (Norvasc 5 Mg Tablet) 5 mg PO QHS BORIS Stop: 05/01/18 21:59 Last Admin: 04/02/18 21:21 Dose: 5 mg Ascorbic Acid (Vitamin C 500 Mg Tablet) 500 mg PO DAILY BORIS Stop: 05/01/18 09:59 Last Admin: 04/03/18 10:51 Dose: 500 mg Atorvastatin Calcium (Lipitor 20 Mg Tablet) 20 mg PO QHS BORIS Stop: 05/01/18 21:59 Last Admin: 04/02/18 21:25 Dose: 20 mg Bisacodyl (Dulcolax 10 Mg Supp.Rect) 10 mg FL DAILYP PRN PRN Reason: UNRESOLVED CONSTIPATION Stop: 05/02/18 11:43 Calcium Carbonate (Os-Noman 250 Mg With Vitamin D 125 Units) 1 tab PO DAILY BORIS Stop: 05/01/18 09:59 Last Admin: 04/03/18 10:47 Dose: 1 tab Clopidogrel Bisulfate (Plavix 75 Mg Tablet) 75 mg PO DAILY [facility] Stop: 05/01/18 09:59 Last Admin: 04/03/18 10:47 Dose: 75 mg Dextrose (Dextrose Inj 50% Syringe (25 Gm/50 Ml)) 12.5 gm IV PRN PRN; Protocol PRN Reason: FOR BG 50-69 IN ALERT PATIENT Stop: 05/01/18 09:38 Dextrose (Dextrose Inj 50% Syringe (25 Gm/50 Ml)) 25 gm IV PRN PRN; Protocol PRN Reason: PER PROTOCOL Stop: 05/01/18 09:38 Enoxaparin Sodium (Lovenox Inj 30 Mg/0.3 Ml Disp.Syrin) 30 mg SUBCUT DAILY [facility] Stop: 05/01/18 09:59 Last Admin: 04/03/18 10:47 Dose: 30 mg Ferrous Sulfate (Feosol 325 Mg Tablet) 325 mg PO BID BORIS Stop: 05/01/18 09:59 Last Admin: 04/03/18 10:46 Dose: 325 mg Furosemide (Lasix 40 Mg Tablet) 40 mg PO TUTHSA@1000 [facility] Stop: 05/01/18 09:59 Last Admin: 04/03/18 10:54 Dose: 40 mg Glucagon (Glucagen Inj 1 Mg Vial) 1 mg IM PRN PRN; Protocol PRN Reason: Evaluate for BG < 70 Stop: 05/01/18 09:38 Glucose (Glutose 40% Gel 15 Gm Tube) 15 gm PO PRN PRN; Protocol PRN Reason: FOR BG 50-69 IN ALERT PATIENT Stop: 05/01/18 09:38 Glucose (Glutose 40% Gel 15 Gm Tube) 30 gm PO PRN PRN; Protocol PRN Reason: FOR BG < 50 IN ALERT PATIENT Stop: 05/01/18 09:38 Guaifenesin (Mucinex Sr 600 Mg Tablet.Sa) 600 mg PO Q12 BORIS Stop: 05/01/18 09:59 Last Admin: 04/03/18 10:47 Dose: 600 mg Hydromorphone HCl (Dilaudid Inj/Pf 2 Mg/Ml Ampule) 1 mg IV Q6HP PRN PRN Reason: FOR PAIN, HOLD FOR SEDATION Stop: 04/09/18 20:54 Hydroxyzine HCl (Atarax 10 Mg Tablet) 20 mg PO Q6HP PRN PRN Reason: ANXIETY Stop: 05/01/18 12:34 Last Admin: 04/03/18 06:26 Dose: 20 mg Cefepime HCl (Maxipime Rtu 2 Gm-D5w 50 Ml Premix Bag) 2 gm in 50 mls @ 100 mls/ hr IV Q12 BORIS Stop: 04/08/18 21:59 Last Admin: 04/03/18 10:50 Dose: 100 mls/hr Vancomycin HCl 1,000 mg/ (Dextrose) 250 mls @ 166.667 mls/hr IV NOON BORIS Stop: 04/09/18 11:59 Last Admin: 04/03/18 12:12 Dose: 166.67 mls/hr Insulin Detemir (Levemir Insulin 300 Units/3 Ml Insuln.Pen) 12 unit SUBCUT DAILY BORIS Stop: 05/01/18 09:59 Last Admin: 04/03/18 12:11 Dose: 12 unit Insulin Human Lispro (Humalog Insulin 100 Unit/1 Ml 3 Ml Vial) 0 - 12 unit SUBCUT ACHSP PRN; Protocol PRN Reason: PER PROTOCOL Stop: 05/01/18 09:38 Lansoprazole (Prevacid 30 Mg Odt Tablet) 30 mg PO Q6AM BORIS Stop: 05/02/18 05:59 Last Admin: 04/03/18 06:25 Dose: 30 mg Levothyroxine Sodium (Synthroid 0.075 Mg Tablet) 0.075 mg PO Q6AM BORIS Stop: 05/02/18 05:59 Last Admin: 04/03/18 06:27 Dose: 0.075 mg Lorazepam (Ativan Inj 2 Mg/1 Ml Vial) 0.5 mg IV Q6HP PRN PRN Reason: ANXIETY/AGITATION Stop: 04/08/18 12:33 Last Admin: 04/02/18 16:46 Dose: 0.5 mg Losartan Potassium (Cozaar 50 Mg Tablet) 100 mg PO QHS BORIS Stop: 05/01/18 21:59 Last Admin: 04/02/18 21:21 Dose: Not Given Meclizine HCl (Antivert 25 Mg Tablet) 25 mg PO DAILYP PRN PRN Reason: DIZZINESS Stop: 05/01/18 09:14 Metoprolol Succinate (Toprol Xl 25 Mg Tab.Sr) 25 mg PO DAILY BORIS Stop: 05/03/18 11:59 Last Admin: 04/03/18 12:10 Dose: 25 mg Mineral Oil (Fleet Mineral Oil Enema 133 Ml) 133 ml FL BIDP PRN PRN Reason: UNRESOLVED CONSTIPATION Stop: 05/02/18 11:44 Last Admin: 04/02/18 17:30 Dose: 133 ml Nitroglycerin (Nitrostat 0.4 Mg (1/150 Gr) Tabs 25/Bottle) 1 tab SL Q5MP PRN PRN Reason: CHEST PAIN Stop: 05/01/18 09:14 [id number] Ethyl Esters (Lovaza 1 Gm Capsule) 1 gm PO DAILY BORIS Stop: 05/01/18 09:59 Last Admin: 04/03/18 10:46 Dose: 1 gm Ondansetron HCl (Zofran Odt 4 Mg Tablet) 4 mg PO Q6HP PRN PRN Reason: FOR NAUSEA/VOMITING Stop: 05/01/18 09:57 Last Admin: 04/03/18 06:30 Dose: 4 mg Ondansetron HCl (Zofran Inj/Pf 4 Mg/2 Ml Sdv) 4 mg IV Q6HP PRN PRN Reason: VOMITING Stop: 05/01/18 13:07 Last Admin: 04/02/18 19:18 Dose: 4 mg Oxycodone/Acetaminophen (Percocet 5-325 Mg Tablet) 1 tab PO Q6HP PRN PRN Reason: FOR PAIN Stop: 04/08/18 09:32 Last Admin: 04/03/18 06:25 Dose: 1 tab Oxymetazoline HCl (Afrin 0.05% Nasal [place] 15 Ml Bottle) 1 spray NASL Q12HP PRN PRN Reason: NASAL CONGESION Stop: 05/01/18 09:53 Patient Own Medication (Loteprednol Etabonate [Lotemax 0.5% Ophth Susp]) 1 drop OU .BID BORIS Stop: 05/01/18 09:59 Patient Own Medication (Ubidecarenone [Coenzyme Q-10]) 200 mg PO .DAILY BORIS Stop: 05/01/18 09:59 Polyethylene Glycol (Miralax Powder 17 Gm/Packet) 17 gm PO DAILY BORIS Stop: 05/01/18 09:59 Last Admin: 04/03/18 10:45 Dose: 17 gm Ranolazine (Ranexa 500 Mg Tab.Sr) 500 mg PO Q12 BORIS Stop: 05/01/18 21:59 Last Admin: 04/03/18 10:50 Dose: 500 mg Fluticasone/Salmeterol (Advair 250-50 Diskus 14 Dose/Diskus) 1 inh IH Q12 BORIS Stop: 05/01/18 10:59 Last Admin: 04/03/18 10:46 Dose: 1 inhaler Sertraline HCl (Zoloft 50 Mg Tablet) 75 mg PO DAILY BORIS Stop: 05/01/18 09:59 Last Admin: 04/03/18 10:52 Dose: 75 mg Sodium Chloride (Saline Flush 2.5 Ml Monoject Prefil Syrin) 2.5 ml IV Q8 BORIS Stop: 05/01/18 13:59 Last Admin: 04/03/18 06:25 Dose: 2.5 ml Sodium Chloride ([place] Nasal [place] 44 Ml Bottle) 1 spray NASL Q4HP PRN PRN Reason: DRY NOSE Stop: 05/01/18 09:14 Last Admin: 04/03/18 08:00 Dose: 1 sprays Zinc Sulfate (Zinc-220 Capsule) 220 mg PO BID BORIS Stop: 05/01/18 09:59 Last Admin: 04/03/18 10:51 Dose: 220 mg - Allergies Allergies/Adverse Reactions: aspirin [Aspirin] Allergy (Verified 04/01/18 14:24) codeine Allergy (Verified 04/01/18 14:24) erythromycin base [Erythromycin Base] Allergy (Verified 04/01/18 14:24) ibuprofen [From Motrin] Allergy (Verified 04/01/18 14:24) morphine [Morphine] Allergy (Verified 04/01/18 14:24) Sulfa (Sulfonamide Antibiotics) Allergy (Verified 04/01/18 14:24) Hospital Course Hospital Course: FARHEEN AGUILAR is a 83 year old female history of aortic stenosis, CHF, who presents with chief complaint of increasing difficulty breathing over the last couple of weeks. She wears 3 L of oxygen at home continuously. She reported a dry nonproductive cough for the last couple of days prior to presentation. EMS reported initial O2 sats were as low as 65%, although they reported she had clear lung sounds and was alert, oriented and interactive with them the whole time. On arrival to the emergency department patient was on a CPAP, O2 sats are in the low 90s, patient was alert, sitting up with minimal distress noted. Further evaluation by presentation was significant for non-STEMI, chest x-ray revealing CHF and suspicious for pneumonia. Of note is that patient also with recent admission for pneumonia and UTI. Patient was admitted to hospitalist service. She was treated with Lasix diuresis, BiPAP, and started on Vanco and cefepime. Patient quickly improved with this regimen. She was evaluated by Dr. Ferrer of cardiology and he suspected this was most likely CHF rather than pneumonia due to rapidity of improvement with diuresis. Of note though is that blood culture 1 out of 2 bottles is now growing gram positive cocci in clusters. This may very well be contaminant, but please follow-up identification and sensitivity. Will continue Vanco and cefepime for now. Also will need repeat blood culture in a.m. May also need MARILYN, depending on the bug. Of note also is that she had leukocytosis of 19.5 by admission, down to 8.9 the day after, and mild 9.7, so I cannot definitely rule out pneumonia for now. Patient improving. However, she has episodes of heart block on telemetry. Dr. Ferrer of cardiology has ordered for decrease of metoprolol succinate from 50 mg to 25 mg daily. He is also concerned that the patient may need pacemaker. He also recommends that patient be reevaluated for management of her severe aortic stenosis for possible further intervention. He spoke with cardiology at [facility], in [place], [place], who recommended that if patient is to be transferred that it should be to the hospitalist service giving several comorbidities, and the cardiology service will see patient in consult. Patient has been accepted to the hospitalist service and is being discharged/ transferred. She will have external pacemaker placed. Physical Exam Vital Signs: Temp Pulse Resp BP Pulse Ox 98.4 F 70 17 124/52 L 100 04/03/18 11:30 04/03/18 11:30 04/03/18 11:30 04/03/18 11:30 04/03/18 11:30 Intake & Output 04/02/18 04/03/18 04/04/18 06:59 06:59 06:59 Intake Total 450 850 Balance 450 850 Weight 66.7 kg 65.5 kg GENERAL: well-nourished and in no acute distress. Alert and oriented x3 HEAD: Atraumatic, normocephalic. NECK: supple without lymphadenopathy. Trachea is central. No cervical or axillary lymphadenopathy noted. Carotids are 2+, JVD WNL LUNGS: Respiration seems nonlabored, no significant accessory muscle action noted. Bibasilar fine crackles are noted. No wheezes rales or rhonchi noted. No significant dullness noted on percussion. CHEST: Palpation of the chest wall shows no significant chest wall tenderness. HEART: [place] [employer], No PSH, 3/6 DIYA aortic area, 1/6 jay systolic murmur mitral area , no rubs, no gallops. ABDOMEN: Soft, no significant tenderness appreciated, normoactive bowel sounds. No guarding, no rebound. No rigidity noted . No masses appreciated. EXTREMITIES: Pedal pulses are 1-2+, no calf tenderness noted. No clubbing or cyanosis. 1+ pedal edema noted NEUROLOGICAL: Focused neurological exam showed no significant neurologic deficit. Normal speech, no focal weakness appreciated. PSYCH: Normal mood, normal affect. Judgment and insight within normal limits. SKIN: No significant ecchymosis, skin is noted to be warm. MUSCULOSKELETAL EXAM: No significant acute joint swelling noted. Results Laboratory Results: 04/03/18 04:51 04/03/18 04:51 04/03/18 04/03/18 04:51 04:51 WBC 9.7 RBC 2.97 L Hgb 8.6 L Hct 24.7 L MCV 83 MCH 28.8 MCHC 34.7 RDW 13.9 Plt Count 305 Sodium 139.9 Potassium 4.2 Chloride 96 L Carbon Dioxide 29 Anion Gap 15 BUN 19 Creatinine 0.80 Est GFR ( Amer) > 60 Est GFR (Non-Af Amer) > 60 Glucose 96 Calcium 9.4 04/01/18 04/01/18 04/02/18 09:27 14:10 06:00 Troponin I 0.142 0.174 NT-Pro-B Natriuret Pep 4310 H Impressions: Chest X-Ray 04/02/18 06:00 IMPRESSION: IMPROVED APPEARANCE OF THE AIRSPACE DISEASE IN THE RIGHT LUNG. Plan Time Spent: Greater than 30 Minutes
[2018-04-03 15:37] VITALS: BP 125/51
--- NOTE | 2018-04-03 17:39 | PDOC PROGRESS REPORT ---
Subjective Progress Note for:: 04/03/18 Subjective:: Patient feels better as regards respiratory status. She is breathing without CPAP. Patient is denying any chest pain. Telemetry shows patient maintaining sinus rhythm. Patient has been noted to have intermittent Mobitz type II heart block. Patient also noted to have left axis deviation with left bundle branch block and first-degree AV block. Patient claims to be feeling better. She is on some oxygen therapy. I had a long discussion with patient and her regarding heart block and discussed that this is a potential life-threatening thing. It is also felt that patient has improved in general status and could become a candidate for further intervention and evaluation. Feel that this is best done in tertiary care where patient is well-known to the software packager. In this regard I did initiate a call to the software packager and talked with him who felt that given patient a lot of other comorbidities, patient should be accepted on general hospitalist service. They will consult on him. In this regard I had the hospitalist also talk with the software packager and later I learned that the hospitalist at [facility] did talk with our hospitalist and the transfer has been arranged. Although patient is noted to be in DNR, this status was reached day before yesterday, when initially transfer was declined. However noted that patient was admitted as full code although she was a DNR on her previous admission at [facility]. Patient and her wants everything done if possible. They do want to be transferred to [facility] if this can be arranged. Reason For Visit: PNEUMONIA Physical Exam Vital Signs: Temp Pulse Resp BP Pulse Ox 98.7 F 67 17 125/51 L 100 04/03/18 15:22 04/03/18 15:22 04/03/18 15:22 04/03/18 15:22 04/03/18 15:22 Intake & Output 04/02/18 04/03/18 04/04/18 06:59 06:59 06:59 Intake Total 450 850 418 Balance 450 850 418 Weight 66.7 kg 65.5 kg Exam: GENERAL: well-nourished and in no acute distress. Alert and oriented x3 HEAD: Atraumatic, normocephalic. EYES: PADMINI, sclera anicteric, conjunctiva are normal. ENT: Moist mucous membranes. No oral ulcerations or bleeding gums noted. No obvious ear, nose or throat abnormalities noted. NECK: supple without lymphadenopathy. Trachea is central. No cervical or axillary lymphadenopathy noted. Carotids are 2+, JVD 8-10 cm LUNGS: Breath sounds clear bilaterally. Bibasilar fine crackles noted right more than left. No significant dullness noted on percussion. CHEST: Palpation of the chest wall shows no significant chest wall tenderness. HEART: [place] REFERRAL MANAGEMENT LIAISON, No PSH, 3/6 DIYA aortic area, 1/6 jay systolic murmur mitral area , no rubs, no gallops. ABDOMEN: Soft, no significant tenderness appreciated, normoactive bowel sounds. No guarding, no rebound. No rigidity noted . No masses appreciated. EXTREMITIES: Pedal pulses are 1-2+, no calf tenderness noted. No clubbing or cyanosis. negative pedal edema noted NEUROLOGICAL: Focused neurological exam showed no significant neurologic deficit. Normal speech, no focal weakness appreciated. PSYCH: Normal mood, normal affect. Judgment and insight within normal limits. SKIN: No significant ecchymosis, skin is noted to be warm. MUSCULOSKELETAL EXAM: No significant acute joint swelling noted. Results Laboratory Results: 04/03/18 04:51 04/03/18 04:51 04/03/18 04/03/18 04:51 04:51 WBC 9.7 RBC 2.97 L Hgb 8.6 L Hct 24.7 L MCV 83 MCH 28.8 MCHC 34.7 RDW 13.9 Plt Count 305 Sodium 139.9 Potassium 4.2 Chloride 96 L Carbon Dioxide 29 Anion Gap 15 BUN 19 Creatinine 0.80 Est GFR ( Amer) > 60 Est GFR (Non-Af Amer) > 60 Glucose 96 Calcium 9.4 04/01/18 04/01/18 04/02/18 09:27 14:10 06:00 Troponin I 0.142 0.174 NT-Pro-B Natriuret Pep 4310 H Impressions: Chest X-Ray 04/02/18 06:00 IMPRESSION: IMPROVED APPEARANCE OF THE AIRSPACE DISEASE IN THE RIGHT LUNG. Assessment & Plan - Diagnosis (1) Non-STEMI (non-ST elevated myocardial infarction) Is this a current diagnosis for this admission?: Yes (2) CHF (congestive heart failure) Qualifiers: Heart failure type: unspecified Heart failure chronicity: chronic Qualified Code(s): I50.9 - Heart failure, unspecified Is this a current diagnosis for this admission?: Yes (3) Coronary artery disease Qualifiers: Coronary Disease-Associated Artery/Lesion type: [place] artery [place] vs. transplanted heart: [place] heart Associated angina: angina presence unspecified Qualified Code(s): I25.10 - Atherosclerotic heart disease of [place] coronary artery without angina pectoris Is this a current diagnosis for this admission?: Yes (4) Hyperlipidemia Qualifiers: Hyperlipidemia type: unspecified Qualified Code(s): E78.5 - Hyperlipidemia , unspecified Is this a current diagnosis for this admission?: Yes (5) Hypertension Qualifiers: Hypertension type: essential hypertension Qualified Code(s): I10 - Essential (primary) hypertension Is this a current diagnosis for this admission?: Yes (6) Pulmonary edema Qualifiers: Chronicity: acute Qualified Code(s): J81.0 - Acute pulmonary edema Is this a current diagnosis for this admission?: Yes (7) Recurrent pneumonia Is this a current diagnosis for this admission?: Yes (8) Respiratory distress Is this a current diagnosis for this admission?: Yes (9) Valvular heart disease Is this a current diagnosis for this admission?: Yes - Notes Notes: Patient has significant complex cardiac history. Patient has been mainly managed as [facility]. Feel that patient current presentation is due to pulmonary edema and CHF, RATHER THAN PNEUMONIA. CHF mostly precipitated by volume overload in setting of severe aortic stenosis and moderate aortic incompetence. At this point recommend diuresing and transfer to tertiary care as patient is likely to end up needing aortic valve repair, replacement or repeat balloon dilatation. In addition patient was noted to have Mobitz type II heart block, patient has left axis deviation, left bundle branch block and also first-degree AV block. Metoprolol succinate dose has been reduced. There is good chance that patient will progress to complete heart block because of underlying aortic stenosis and may need emergent pacemaker placement. At this point agree with placing patient on transcutaneous pacer as patient is maintaining a stable rhythm. Coronary artery disease: Non-STEMI level troponin I rise. EKGs cannot help since patient has left bundle. Continue patient on Ranexa, chronic anticoagulation, YVONNE inhibitor/ARB and high potency statins. Beta-belkis dose being reduced because of heart block being noted. Severe aortic stenosis: Grave prognosis if patient does not have surgical option. However feel that patient would benefit from reevaluation at tertiary care center to see if further balloon valvuloplasty or percutaneous transaortic valve replacement can be done. Mobitz type II second-degree AV block: Reduce beta-belkis dose. Refer to tertiary care for evaluation of possible pacemaker. Patient has other numerous multiple problems which are being well managed by the hospitalist. - Time Time with patient: Greater than 35 minutes - CODE STATUS : was discussed, patient remains DO NOT RESUSCITATE. Surrogate decision-maker unchanged. Multiple medical problems were addressed. Please note that patient want everything done except for cardiac compression and intubation, however this is subject to change as this has occurred in the past. Patient however does wish to be transferred to tertiary care for further management. Medications reviewed and adjusted accordingly: Yes
== END 2018-04-03 15:43 | disposition short-term general hospital (02) | DRG 280 ==
LOC: ER 05:16 → EH 08:06 → 3S 09:40
PROVIDERS: ADMIT Internal Medicine; ATTEND Internal Medicine
DX: I21.4 Non-ST elevation (NSTEMI) myocardial infarction (principal); J18.9 Pneumonia, unspecified organism; J81.0 Acute pulmonary edema; I50.43 Acute on chronic combined systolic (congestive) and diastolic (congestive) heart failure; J96.21 Acute and chronic respiratory failure with hypoxia; I44.1 Atrioventricular block, second degree; Z99.81 Dependence on supplemental oxygen; J44.9 Chronic obstructive pulmonary disease, unspecified; I35.0 Nonrheumatic aortic (valve) stenosis; I48.91 Unspecified atrial fibrillation; E78.5 Hyperlipidemia, unspecified; I11.0 Hypertensive heart disease with heart failure; E03.9 Hypothyroidism, unspecified; E11.8 Type 2 diabetes mellitus with unspecified complications; F41.8 Other specified anxiety disorders; I25.2 Old myocardial infarction; Z79.4 Long term (current) use of insulin; Z79.899 Other long term (current) drug therapy
CPT/HCPCS: 36415; 71045; 80048; 80053; 82550; 82553; 82803; 82962; 83036; 83880; 84484; 85025; 85027; 87040; 87077; 87186; 93005; 93010; 94640; 94660; 96365; 99285; J0692; J1170; J1650; J1815; J1940; J1956; J2060; J2405; J2543; J3370; J3490; J7060; J7620; S0119

== ENCOUNTER 2018-10-25 16:15 | Inpatient (IN) | payer MEDICARE ==
[~2018-10-25 16:15] MED LIST changes: -BUPIVACAINE HCL 0.5 % INJ/PF 30 ML SDV ONE; +FAMOTIDINE INJ/PF 20 MG/2 ML SDV IV ONE
--- NOTE | 2018-10-25 17:01 | RADIOLOGY REPORT (SQ) ---
EXAM DESCRIPTION: CHEST SINGLE VIEW COMPLETED DATE/TIME: 10/25/2018 4:49 pm REASON FOR STUDY: sob COMPARISON: 04/01/2018 EXAM PARAMETERS: NUMBER OF VIEWS: One view. TECHNIQUE: Single frontal radiographic view of the chest acquired. RADIATION DOSE: NA LIMITATIONS: None. FINDINGS: LUNGS AND PLEURA: Mild prominence of the interstitial markings in the lungs, probably on a chronic basis. No acute pulmonary consolidation. No pneumothorax or pleural effusion. MEDIASTINUM AND HILAR STRUCTURES: There is fullness in the right hilar region. This finding may be on the basis of prominent right pulmonary artery versus other underlying pathology. HEART AND VASCULAR STRUCTURES: Cardiomegaly, stable finding. Normal vasculature. BONES: No acute findings. HARDWARE: None in the chest. OTHER: No other significant finding. IMPRESSION: 1. Mild prominence of the interstitial markings in the lungs, probably on a chronic bas is. 2. Stable cardiomegaly since the prior study. 3. There is fullness in the right hilar region, may be on the basis of prominence of the right pulmo nary artery versus other underlying pathology. This appears to represent a new finding since the luke or examination. Further evaluation with CT chest with IV contrast. TECHNICAL DOCUMENTATION: JOB ID: [id number] [employer]- All Rights Reserved Reading location - IP/workstation name: [email or web address]
[2018-10-25] MEDS ORDERED: ONDANSETRON HCL INJ/PF 4 MG/2 ML SDV IV ONE ×3 (17:05→21:30)
--- NOTE | 2018-10-25 17:08 | ER Document Report ---
ED General - General Stated Complaint: DIFFICULTY BREATHING Time Seen by Provider: 10/25/18 16:50 Primary Care Provider: VERONICA NUNES MD [ACTIVE STAFF] - Follow up as needed TRAVEL OUTSIDE OF THE [place] IN LAST 30 DAYS: No - HPI Notes: Patient is a 83-year-old female that presents to the emergency department for chief complaint of chest pain and vomiting. Patient states for the last few days she has felt "not well". She reports generalized malaise and fatigue. Today she started to have a pain in her lower sternal region that she states began after eating a sticky bun. She states it feels like it may be stuck although she is able to swallow fluids since eating the steak even. She reports one episode of vomiting after the onset of pain. She reports feeling nauseated as well as short of breath. She is on 2 to 3 L of nasal cannula oxygen for COPD at all times. She states she has been using her albuterol twice daily. She does have associated cough and denies increased sputum production. Her shortness of breath became worse after the onset of her chest pain today. She denies diaphoresis fevers or chills. She denies any dysuria or urinary frequency. Past Medical History: Aortic aneurysm, hypertension, hyperlipidemia, history of PR Past Surgical History: Coronary stent x3 Social History: Denies drugs alcohol and tobacco Family History: Reviewed and noncontributory for presenting illness Allergies: Reviewed, see documented allergy list. REVIEW OF SYSTEMS: CONSTITUTIONAL : No fever No chills No diaphoresis No recent illness Malaise EENT: No vision changes No congestion No sore throat CARDIOVASCULAR: chest pain No palpitations RESPIRATORY: shortness of breath cough difficulty breathing GASTROINTESTINAL: abdominal pain nausea vomiting No diarrhea GENITOURINARY: No dysuria No hematuria No difficulty urinating MUSCULOSKELETAL: No back pain No leg pain No arm pain SKIN: No rashes No lesions LYMPHATIC: No swollen, enlarged glands. NEUROLOGICAL: No lightheadedness No headache No weakness No paresthesias PSYCHIATRIC: No anxiety No depression PHYSICAL EXAMINATION: Vital signs reviewed, nursing noted reviewed. GENERAL: Ill-appearing, well-nourished and in no acute distress. HEAD: Atraumatic, normocephalic. EYES: Eyes appear normal, extraocular movements intact, sclera anicteric, conjunctiva are normal. ENT: nares patent, oropharynx clear without exudates. Moist mucous membranes. NECK: Normal range of motion, supple without lymphadenopathy LUNGS: Breath sounds clear to auscultation bilaterally and equal. No wheezes rales or rhonchi. HEART: Regular rate and rhythm without murmurs +2/4 bilateral radial pulses ABDOMEN: Soft, mild epigastric tenderness, normoactive bowel sounds. No reboun d, guarding, or rigidity. No masses appreciated. No pulsatile mass EXTREMITIES: Nontender, good range of motion, +2 pitting edema bilateral lower extremities NEUROLOGICAL: No focal neurological deficits. Moves all extremities spontaneously Motor and sensory grossly intact on exam. PSYCH: Normal mood, normal affect. SKIN: Warm, Dry, normal turgor, no rashes or lesions noted on exposed skin - Related Data Allergies/Adverse Reactions: aspirin [Aspirin] Allergy (Verified 04/01/18 14:24) codeine Allergy (Verified 04/01/18 14:24) erythromycin base [Erythromycin Base] Allergy (Verified 04/01/18 14:24) ibuprofen [From Motrin] Allergy (Verified 04/01/18 14:24) morphine [Morphine] Allergy (Verified 04/01/18 14:24) Sulfa (Sulfonamide Antibiotics) Allergy (Verified 04/01/18 14:24) Past Medical History - Social History Smoking Status: Unknown if Ever Smoked Family History: COPD, Hypertension, Malignancy - Past Medical History Cardiac Medical History: Reports: Hx Atrial Fibrillation, Hx Congestive Heart F ailure, Hx Heart Attack - non-stemi, Hx Hypercholesterolemia, Hx Hypertension Pulmonary Medical History: Reports: Hx COPD, Hx Pneumonia - Recurrent, Hx Sleep Apnea - Likely. The patient is to go for a sleep study as outpatient. Endocrine Medical History: Reports: Hx Diabetes Mellitus Type 2, Hx Hypothyroidism Renal/ Medical History: Denies: Hx Peritoneal Dialysis Musculoskeletal Medical History: Reports Hx Arthritis Psychiatric Medical History: Reports: Hx Depression - anxiety Traumatic Medical History: Denies: Hx Gunshot Wound, Hx Traumatic Brain Injury Infectious Medical History: Denies: Hx C-Diff Past Surgical History: Reports: Hx Cholecystectomy, Hx Coronary Stent, Hx Hysterectomy, Hx Neurologic Surgery - Neck 2010, Other - Valvuloplasty at [facility] - Immunizations Hx Diphtheria, Pertussis, Tetanus Vaccination: Yes Hx Pneumococcal Vaccination: 07/09/10 Physical Exam - Vital signs Vitals: Pulse Ox 96 10/25/18 16:32 Course - Re-evaluation Re-evalutation: 10/25/18 17:08 Vitals reviewed. Nursing notes reviewed. Patient is ill-appearing and will be placed on telemetry monitoring. EMS reported a O2 of 80% on room air, patient is at 98% on her home 2 L. 10/25/18 20:56 Patient has been reevaluated on a few occasions. Her oxygen has slowly started to trend down and nasal cannula had been titrated up. Patient was continuing to have lower oxygen saturation and was placed on nonrebreather. She began vomiting hand was ordered IV Zofran. Patient has had a difficult time maintaining IV access despite multiple times by nursing as well as myself. I had placed a peripheral IV which was infiltrated with the first attempt at CT scan. After second peripheral IV was placed by myself using ultrasound and then patient was refusing CT scan. Issues with patient refusal of care as well as IV access has delayed her management. Patient does have a elevated WBC count as well as lactic acid. She has been ordered IV antibiotics and fluids. Her CMP has hemolyzed and will require a redraw. Laboratory 10/25/18 10/25/18 10/25/18 19:06 19:06 19:27 WBC 15.5 H RBC 3.80 Hgb 10.7 L Hct 33.2 L MCV 87 MCH 28.2 MCHC 32.3 RDW 14.0 Plt Count 254 Seg Neutrophils % 87.8 H Lymphocytes % 7.8 L Monocytes % 2.8 L Eosinophils % 1.2 Basophils % 0.4 Absolute Neutrophils 13.6 H Absolute Lymphocytes 1.2 Absolute Monocytes 0.4 Absolute Eosinophils 0.2 Absolute Basophils 0.1 PT 14.2 INR 1.04 APTT 30.3 Sodium Cancelled Potassium Cancelled Chloride Cancelled Carbon Dioxide Cancelled Anion Gap Cancelled BUN Cancelled Creatinine Cancelled Est GFR ( Amer) Cancelled Est GFR (Non-Af Amer) Cancelled Glucose Cancelled Lactic Acid Calcium Cancelled Total Bilirubin Cancelled Direct Bilirubin Cancelled Neonat Total Bilirubin Cancelled Neonat Direct Bilirubin Cancelled Neonat Indirect Bili Cancelled AST Cancelled ALT Cancelled Alkaline Phosphatase Cancelled Troponin I Total Protein Cancelled Albumin Cancelled 10/25/18 10/25/18 19:27 19:27 WBC RBC Hgb Hct MCV MCH MCHC RDW Plt Count Seg Neutrophils % Lymphocytes % Monocytes % Eosinophils % Basophils % Absolute Neutrophils Absolute Lymphocytes Absolute Monocytes Absolute Eosinophils Absolute Basophils PT INR APTT Sodium Potassium Chloride Carbon Dioxide Anion Gap BUN Creatinine Est GFR ( Amer) Est GFR (Non-Af Amer) Glucose Lactic Acid 2.8 H Calcium Total Bilirubin Direct Bilirubin Neonat Total Bilirubin Neonat Direct Bilirubin Neonat Indirect Bili AST ALT Alkaline Phosphatase Troponin I Cancelled Total Protein Albumin Chest X-Ray 10/25/18 16:32 IMPRESSION: 1. Mild prominence of the interstitial markings in the lungs, probably on a chronic basis. 2. Stable cardiomegaly since the prior study. 3. There is fullness in the right hilar region, may be on the basis of prominence of the right pulmonary artery versus other underlying pathology. This appears to represent a new finding since the prior examination. Further evaluation with CT chest with IV contrast. 10/25/18 20:58 Patient second IV that I placed also infiltrated with IV contrasted CT. Noncontrast CT scans were obtained because of inability to get contrasted studies. Patient has no significant aortic dilation. She does have extensive bilateral pneumonia which is likely the cause of her symptoms and hypoxia. Patient is oxygenating well on the nonrebreather. She has continued to vomit and was ordered a second dose of Zofran. Patient is somnolent and tachypneic. I feel she would benefit from CPAP however she is not a good candidate given her active vomiting. I did discuss the possibility of intubation with her which she does not currently want. Since her O2 is 98% on the nonrebreather and she is mentating appropriately and oriented to person place time and situation intubation will be held at this point. Patient does still wish to be full code with intubation and understands that she may require intubation if she does not improve. Patient will be admitted to the hospital for further management in the ICU. 10/25/18 22:16 Patient's ABG shows no acid-base disturbance but she is hypercapnic. ABG was drawn on nonrebreather. Patient will be admitted to the ICU for further management. Her care was discussed with Dr. Herzog who accepts admission. - Vital Signs Vital signs: Temp Pulse Resp BP Pulse Ox 96 10/25/18 16:32 - Laboratory Result Diagrams: 10/25/18 19:27 10/25/18 21:28 Laboratory results interpreted by me: 10/25/18 10/25/18 10/25/18 19:27 19:27 21:28 WBC 15.5 H Hgb 10.7 L Hct 33.2 L Seg Neutrophils % 87.8 H Lymphocytes % 7.8 L Monocytes % 2.8 L Absolute Neutrophils 13.6 H Carbonic Acid ABG pCO2 ABG HCO3 ABG Total CO2 BUN 22 H Glucose 128 H Lactic Acid 2.8 H Calcium 8.3 L Albumin 3.4 L 10/25/18 21:55 WBC Hgb Hct Seg Neutrophils % Lymphocytes % Monocytes % Absolute Neutrophils Carbonic Acid 1.64 H ABG pCO2 54.4 H ABG HCO3 32.3 H ABG Total CO2 34.0 H BUN Glucose Lactic Acid Calcium Albumin - EKG Interpretation by Me Additional EKG results interpreted by me: 10/25/18 18:31 Interpreted by myself 1814: Normal sinus rhythm, rate 89, first-degree AV block, left bundle branch block, left axis, no significant change from 04/03/2018 Procedures - Ultrasound/Bedside Ultrasound/Bedside Time completed: 21:47 Notes: 10/25/18 21:47 Peripheral venous access has been obtained on 3 separate occasions by myself with verbal consent being obtained by patient. Indication is IV access. Ultrasound guidance was used with linear probe. 3 attempts were performed with 3 separate 20-gauge IVs being inserted. Areas were cleaned with ChloraPrep. Initial IV was in the left AC. Second IV was in right AC. Third IV was just proximal to right AC. Patient tolerated IV well. They were all secured in place with Tegaderm and tape. All IVs flushed well with normal saline and all IVs had blood flow returned. Critical Care Note - Critical Care Note Total time excluding time spent on procedures (mins): 45 Comments: Critical care time 45 exclusive from separate billable procedures for a patient requiring complex medical decision making, and high potential for clinical deterioration. Time spent obtaining history from patient or surrogate, discussions with consultants, development of treatment plan with patient or surrogate, evaluation of patient's response to treatment, examination of patient, ordering and performing treatments and interventions, ordering and review of laboratory studies, re-evaluation of patient's condition, ordering and review of radiographic studies and review of old charts Discharge - Discharge Clinical Impression: Severe sepsis, Bilateral pleural effusion, Acute respiratory failure with hypoxia Bilateral pneumonia Qualifiers: Pneumonia type: due to unspecified organism Lung location: unspecified part of lung Qualified Code(s): J18.9 - Pneumonia, unspecified organism Condition: Stable Disposition: ADMITTED INPATIENT Admitting Provider: Rosenda (Hospitalist) Unit Admitted: ICU Referrals: VERONICA NUNES MD [ACTIVE STAFF] - Follow up as needed
[2018-10-25 19:56] LABS: INTERNATIONAL RATION (INR) 1.04; PROTHROMBIN TIME 14.2 SEC (11.4-15.4)
[2018-10-25 19:57] LABS: PARTIAL THROMBOPLASTIN TIME 30.3 SEC (23.5-35.8)
[2018-10-25 19:59] LABS: ABSOLUTE BASOPHILS # (AUTO) 0.1 10^3/uL (0.0-0.2); ABSOLUTE EOSINOPHILS # (AUTO) 0.2 10^3/uL (0.0-0.6); ABSOLUTE LYMPHOCYTES (AUTO) 1.2 10^3/uL (0.5-4.7); ABSOLUTE MONOCYTES (AUTO) 0.4 10^3/uL (0.1-1.4); ABSOLUTE NEUT (AUTO) 13.6 10^3/uL (1.7-8.2); BASOPHILS % (AUTO) 0.4 % (0-2); EOSINOPHILS % (AUTO) 1.2 % (0-6); HEMATOCRIT 33.2 % (36.0-47.0); HEMOGLOBIN 10.7 g/dL (12.0-15.5); LYMPHOCYTES % (AUTO) 7.8 % (13-45); MEAN CORPUSCULAR HEMOGLOBIN 28.2 pg (27.0-33.4); MEAN CORPUSCULAR HGB CONC 32.3 g/dL (32.0-36.0); MEAN CORPUSCULAR VOLUME 87 fl (80-97); MONOCYTES % (AUTO) 2.8 % (3-13); PLATELET COUNT 254 10^3/uL (150-450); SEGMENTED NEUTROPHILS % (AUTO) 87.8 % (42-78); TOTAL CELLS COUNTED % (AUTO) 100 %; WHITE BLOOD COUNT 15.5 10^3/uL (4.0-10.5)
[2018-10-25] MEDS ORDERED: ONDANSETRON HCL INJ/PF 4 MG/2 ML SDV ONE (20:27)
[2018-10-25] MEDS ORDERED: VANCOMYCIN HCL INJ 1000 MG VIAL IV ONE (20:59)
[2018-10-25] MEDS ORDERED: PIPERACILLIN/TAZOBACTAM 3.375 GM VIAL IV ONE (20:59)
[2018-10-25] MEDS ORDERED: NORMAL SALINE 1000 ML 1,000 ML IV ONE (20:59)
--- NOTE | 2018-10-25 21:27 | RADIOLOGY REPORT (SQ) ---
EXAM DESCRIPTION: CT CHEST ANGIOGRAPHY WITHOUT THEN WITH IV CONTRAST COMPLETED DATE/TME: 10/25/2018 17:03 EXAM DESCRIPTION: CT ABDOMEN PELVIS WITHOUT THEN WITH IV CONTRAST COMPLETED DATE/TME: 10/25/2018 17:03 CLINICAL HISTORY: 83 years, Female, dissection PROCEDURE: CLINICAL HISTORY: 83 years Female dissection COMPARISON: None. TECHNIQUE: Contiguous axial images were obtained through the chest during the infusion of IV contrast. Reformatted images obtained. MIP reformatted images obtained. This exam was performed according to our department optimization program which includes automated exposure control, adjustment of the mA and/or kv according to patient size and/or use of iterative reconstruction technique. FINDINGS: No IV contrast was administered as the IV infiltrated. This exam is therefore nondiagnostic for aorta dissection. Aorta diameter is normal except for mild dilatation at the distal arch. The heart is normal in size. No significant pericardial effusion. There are calcifications of the coronary arteries. There are mildly enlarged mediastinal lymph nodes. Bilateral consolidations involve both lungs, and are fairly extensive. Gallbladder is surgically absent. There are bony degenerative changes. Moderate stool is in the colon. No hydronephrosis is seen. No definite focal hepatic abnormality. There is atrophy of the pancreas. No pneumothorax. There is a small pleural effusion on each side. IMPRESSION: This exam is nondiagnostic for aorta is suggested dissection because no IVC could not be administered due to infiltration of the IV site. There is slight dilatation of the proximal aortic arch. Extensive consolidations involve both lungs. Additional findings described above.
[2018-10-25] MEDS ORDERED: RINGERS SOLUTION,LACTATED 1,000 ML IV ONE (21:38)
[2018-10-25 22:07] LABS: ARTERIAL BLOOD BASE EXCESS 6.2 mmol/L; ARTERIAL BLOOD H2CO3 1.64 mmol/L (1.05-1.35); ARTERIAL BLOOD HCO3 32.3 mmol/L (20-24); ARTERIAL BLOOD O2 SATURATION 96.8 % (94-98); ARTERIAL BLOOD PCO2 54.4 mmHg (35-45); ARTERIAL BLOOD PH 7.39 (7.35-7.45); ARTERIAL BLOOD PO2 91.6 mmHg (80-100)
[2018-10-25 22:09] LABS: ALANINE AMINOTRANSFERASE 31 U/L (9-52); ALBUMIN 3.4 g/dL (3.5-5.0); ALKALINE PHOSPHATASE 110 U/L (38-126); ANION GAP 11 (5-19); ASPARTATE AMINO TRANSFERASE 28 U/L (14-36); BILIRUBIN,DIRECT 0.3 mg/dL (0.0-0.4); BILIRUBIN,TOTAL 0.6 mg/dL (0.2-1.3); BLOOD UREA NITROGEN 22 mg/dL (7-20); CALCIUM 8.3 mg/dL (8.4-10.2); CARBON DIOXIDE 28 mmol/L (22-30); CHLORIDE 102 mmol/L (98-107); GLUCOSE 128 mg/dL (75-110); POTASSIUM 3.7 mmol/L (3.6-5.0); SODIUM 140.8 mmol/L (137-145); TOTAL PROTEIN 6.8 g/dL (6.3-8.2)
[2018-10-25 22:09] LABS: ARTERIAL BLOOD FIO2 15L
[2018-10-25] MEDS ORDERED: ALBUTEROL SULFATE 0.083% NEB 2.5 MG/3 ML AMPUL NEB ONE (22:17)
[2018-10-25] MEDS ORDERED: IPRATROPIUM/ALBUTEROL 0.5-2.5 MG/3 ML AMPUL NEB ONE (22:17)
[2018-10-25] MEDS ORDERED: MEROPENEM 1 GM VIAL IV PRN (23:00)
[2018-10-25] MEDS ORDERED: VANCOMYCIN HCL INJ 1000 MG VIAL IV SCH (23:00)
[2018-10-25] MEDS ORDERED: LIDOCAINE 1% INJ-PF (10 MG/ML) 30 ML SDV ONE (23:09)
[2018-10-25 23:12] LABS: APPEARANCE,URINE CLEAR; BILIRUBIN,URINE NEGATIVE (NEGATIVE); COLOR,URINE YELLOW; GLUCOSE, URINE NEGATIVE (NEGATIVE); KETONES,URINE NEGATIVE (NEGATIVE); LEUKOCYTE ESTERASE,URINE NEGATIVE (NEGATIVE); NITRITE,URINE NEGATIVE (NEGATIVE); PROTEIN,URINE NEGATIVE (NEGATIVE); URINE SPECIFIC GRAVITY 1.015; UROBILINOGEN,URINE NEGATIVE mg/dL (<2.0)
[2018-10-25 23:44] LABS: FREE T3 3.22 pg/mL (2.77-5.27); FREE T4 (FREE THYROXINE) 1.4 ng/dL (0.78-2.19)
[2018-10-25] MEDS ORDERED: VANCOMYCIN HCL INJ 1000 MG VIAL IV PRN (23:50)
[2018-10-25] MEDS ORDERED: MEROPENEM 1 GM in NORMAL SALINE 50 ML IV ONE (23:59)
--- NOTE | 2018-10-26 00:15 | PDOC CONSULTATION ---
Consultation Consult Date: 10/26/18 Provider Consulted: ALONSO WORKMAN History of Present Illness Admission Date/PCP: 10/25/18 22:29 MAJOR WORKMAN MD History of Present Illness: FARHEEN AGUILAR is a 83 year old female in need of IV access for fluids and medications Past Medical History Cardiac Medical History: Reports: Atrial Fibrillation, Congestive Heart Failure, Coronary Artery Disease, Myocardial Infarction - non-stemi, Hyperlipidema, Hypertension, Other - Valvular heart disease Pulmonary Medical History: Reports: Chronic Obstructive Pulmonary Disease (COPD), Pneumonia - Recurrent, Sleep Apnea - Suspected. The patient is to go for a sleep study as outpatient. Denies: Asthma EENT Medical History: Denies: Cataracts, Ears - Hearing aids Neurological Medical History: Denies: Hemorrhagic CVA, Ischemic CVA, Seizures Endocrine Medical History: Reports: Diabetes Mellitus Type 2, Hypothyroidism Denies: Diabetes Mellitus Type 1, Hyperthyroidism Renal/ Medical History: Denies: Chronic Kidney Disease, Nephrolithiasis Malignancy Medical History: Reports: None GI Medical History: Denies: Cirrhosis, Hepatitis Musculoskeltal Medical History: Reports: Arthritis Denies: Gout Skin Medical History: Denies: Eczema, Psoriasis Psychiatric Medical History: Reports: Depression - anxiety Denies: Alcohol Dependency, Substance Abuse, Tobacco Dependency Traumatic Medical History: Reports: None Denies: Gunshot Wound, Traumatic Brain Injury Hematology: Denies: Anemia, Bleeding Tendencies Infectious Medical History: Reports: None Denies: Clostridium Difficile Past Surgical History Past Surgical History: Reports: Cardiac Catheterization, Cholecystectomy, Coronary Stent, Hysterectomy, Other - Valvuloplasty at [facility] Social History Lives with: Spouse/Significant other Smoking Status: Never Smoker Frequency of Alcohol Use: None Hx Recreational Drug Use: No Drugs: None Hx Prescription Drug Abuse: No - Advance Directive Resuscitation Status: Full Code Family History Family History: Reviewed & Not Pertinent, COPD, Hypertension, Malignancy Parental Family History Reviewed: No Children Family History Reviewed: No Sibling(s) Family History Reviewed.: No Medication/Allergy Home Medications: Ascorbic Acid [Vitamin C 500 mg Tablet] 500 mg PO DAILY 12/19/17 Atorvastatin Calcium [Lipitor 20 mg Tablet] 20 mg PO WSUPPER 12/19/17 Clopidogrel Bisulfate [Plavix 75 mg Tablet] 75 mg PO DAILY 12/19/17 Ferrous Sulfate [Feosol] 325 mg PO DAILY 12/19/17 Ipratropium/Albuterol Sulfate [Duoneb 3 ml Ampul] 3 ml NEB RTQ6HP PRN 12/19/17 Levothyroxine Sodium [Synthroid] 75 mcg PO Q6AM 12/19/17 Losartan Potassium [Cozaar] 100 mg PO QHS 12/19/17 Nitroglycerin [Nitrostat 0.4 mg (1/150 Gr) Tabs 25/Bottle] 1 tab SL Q5MP PRN 12/19/17 [place]-3 Acid Ethyl Esters [Lovaza 1 gm Capsule] 1 gm PO DAILY 12/19/17 Ondansetron HCl [Zofran 4 mg Tablet] 4 mg PO Q6HP PRN 12/19/17 Oxycodone HCl/Acetaminophen [Percocet 7.5-325 mg Tablet] 1 tab PO Q6HP PRN 12/19/17 Ubidecarenone [Coenzyme Q-10] 200 mg PO DAILY 12/19/17 Zinc Sulfate [Zinc-220 Capsule] 220 mg PO BID 12/19/17 Acetaminophen [Tylenol 325 mg Tablet] 650 mg PO Q4HP PRN 03/15/18 Pantoprazole Sodium [Protonix] 40 mg PO DAILY 03/15/18 Sertraline HCl 75 mg PO DAILY 03/15/18 Sodium Chloride [[place] Nasal [place] 44 ml Bottle] 1 spray NASL Q4HP PRN 03/15/18 Calcium Carbonate/Vitamin D3 [Os-[place] 250 mg with Vitamin D 125 Units] 1 tab PO DAILY #30 tablet 03/20/18 Insulin Detemir [Levemir Insulin 100 units/mL] 12 unit SUBCUT DAILY insuln.pen 03/20/18 Meclizine HCl [Antivert 25 mg Tablet] 25 mg PO DAILYP PRN tablet 03/20/18 Oxymetazoline HCl [Nasal [place]] 30 ml NS BID PRN #1 mist 03/20/18 Amlodipine Besylate [Norvasc 10 mg Tablet] 10 mg PO QHS 04/01/18 Cranberry Conc/C/Bacill Coag [AZO Cranberry Tablet] 1 tab PO DAILY 04/01/18 Estropipate [Ogen] 1.5 mg PO MOWEFR@1000 04/01/18 Fluticasone/Salmeterol [Advair 250-50 Diskus 14 Dose/Diskus] 2 puff IH BID 04/01/18 Furosemide [Lasix 20 mg Tablet] 20 mg PO QAM 04/01/18 Hydroxyzine HCl [Atarax 25 mg Tablet] 1 tab PO Q6HP PRN 04/01/18 Insulin Lispro [Humalog Insulin 100 Unit/1 ml 3 ml Vial] 0 unit SUBCUT .SLD SCALE 04/01/18 Loteprednol Etabonate [Lotemax] 1 applic OU BID 04/01/18 Metoprolol Succinate [Toprol Xl] 50 mg PO QAM 04/01/18 Allergies/Adverse Reactions: aspirin [Aspirin] Allergy (Verified 04/01/18 14:24) codeine Allergy (Verified 04/01/18 14:24) erythromycin base [Erythromycin Base] Allergy (Verified 04/01/18 14:24) ibuprofen [From Motrin] Allergy (Verified 04/01/18 14:24) morphine [Morphine] Allergy (Verified 04/01/18 14:24) Sulfa (Sulfonamide Antibiotics) Allergy (Verified 04/01/18 14:24) Physical Exam Vital Signs: Temp Pulse Resp BP Pulse Ox 102.2 F H 25 H 163/51 H 100 10/25/18 23:03 10/25/18 23:03 10/25/18 23:03 10/25/18 23:03 Intake & Output 10/24/18 10/25/18 10/26/18 06:59 06:59 06:59 Weight 67 kg General appearance: PRESENT: mild distress Mouth exam: PRESENT: dry mucosa, neck supple Neck exam: PRESENT: full ROM Respiratory exam: PRESENT: clear to auscultation douglas Cardiovascular exam: PRESENT: RRR Results Laboratory Results: 10/25/18 19:27 10/25/18 21:28 10/25/18 10/25/18 10/25/18 19:06 19:27 19:27 WBC 15.5 H RBC 3.80 Hgb 10.7 L Hct 33.2 L MCV 87 MCH 28.2 MCHC 32.3 RDW 14.0 Plt Count 254 Seg Neutrophils % 87.8 H Lymphocytes % 7.8 L Monocytes % 2.8 L Eosinophils % 1.2 Basophils % 0.4 Absolute Neutrophils 13.6 H Absolute Lymphocytes 1.2 Absolute Monocytes 0.4 Absolute Eosinophils 0.2 Absolute Basophils 0.1 Carbonic Acid HCO3/H2CO3 Ratio ABG pH ABG pCO2 ABG pO2 ABG HCO3 ABG O2 Saturation ABG Base Excess FiO2 Sodium Cancelled Potassium Cancelled Chloride Cancelled Carbon Dioxide Cancelled Anion Gap Cancelled BUN Cancelled Creatinine Cancelled Est GFR ( Amer) Cancelled Est GFR (Non-Af Amer) Cancelled Glucose Cancelled Lactic Acid 2.8 H Calcium Cancelled Total Bilirubin Cancelled AST Cancelled ALT Cancelled Alkaline Phosphatase Cancelled Total Protein Cancelled Albumin Cancelled Free T4 Free T3 pg/mL Urine Color Urine Appearance Urine pH Ur Specific [place] Urine Protein Urine Glucose (UA) Urine Ketones Urine Blood Urine Nitrite Ur Leukocyte Esterase Urine WBC (Auto) Urine RBC (Auto) 10/25/18 10/25/18 10/25/18 21:28 21:28 21:55 WBC RBC Hgb Hct MCV MCH MCHC RDW Plt Count Seg Neutrophils % Lymphocytes % Monocytes % Eosinophils % Basophils % Absolute Neutrophils Absolute Lymphocytes Absolute Monocytes Absolute Eosinophils Absolute Basophils Carbonic Acid 1.64 H HCO3/H2CO3 Ratio 19:1 ABG pH 7.39 ABG pCO2 54.4 H ABG pO2 91.6 ABG HCO3 32.3 H ABG O2 Saturation 96.8 ABG Base Excess 6.2 FiO2 15L Sodium 140.8 Potassium 3.7 Chloride 102 Carbon Dioxide 28 Anion Gap 11 BUN 22 H Creatinine 0.65 Est GFR ( Amer) > 60 Est GFR (Non-Af Amer) > 60 Glucose 128 H Lactic Acid Calcium 8.3 L Total Bilirubin 0.6 AST 28 ALT 31 Alkaline Phosphatase 110 Total Protein 6.8 Albumin 3.4 L Free T4 1.40 Free T3 pg/mL 3.22 Urine Color Urine Appearance Urine pH Ur Specific [place] Urine Protein Urine Glucose (UA) Urine Ketones Urine Blood Urine Nitrite Ur Leukocyte Esterase Urine WBC (Auto) Urine RBC (Auto) 10/25/18 22:21 WBC RBC Hgb Hct MCV MCH MCHC RDW Plt Count Seg Neutrophils % Lymphocytes % Monocytes % Eosinophils % Basophils % Absolute Neutrophils Absolute Lymphocytes Absolute Monocytes Absolute Eosinophils Absolute Basophils Carbonic Acid HCO3/H2CO3 Ratio ABG pH ABG pCO2 ABG pO2 ABG HCO3 ABG O2 Saturation ABG Base Excess FiO2 Sodium Potassium Chloride Carbon Dioxide Anion Gap BUN Creatinine Est GFR ( Amer) Est GFR (Non-Af Amer) Glucose Lactic Acid Calcium Total Bilirubin AST ALT Alkaline Phosphatase Total Protein Albumin Free T4 Free T3 pg/mL Urine Color YELLOW Urine Appearance CLEAR Urine pH 5.0 Ur Specific [place] 1.015 Urine Protein NEGATIVE Urine Glucose (UA) NEGATIVE Urine Ketones NEGATIVE Urine Blood NEGATIVE Urine Nitrite NEGATIVE Ur Leukocyte Esterase NEGATIVE Urine WBC (Auto) 0 Urine RBC (Auto) 0 10/25/18 10/25/18 19:27 21:55 Troponin I Cancelled < 0.012 Impressions: Chest X-Ray 10/25/18 16:32 IMPRESSION: 1. Mild prominence of the interstitial markings in the lungs, probably on a chronic basis. 2. Stable cardiomegaly since the prior study. 3. There is fullness in the right hilar region, may be on the basis of prominence of the right pulmonary artery versus other underlying pathology. This appears to represent a new finding since the prior examination. Further evaluation with CT chest with IV contrast. Abdomen/Pelvis CTA 10/25/18 17:03 IMPRESSION: This exam is nondiagnostic for aorta is suggested dissection because no IVC could not be administered due to infiltration of the IV site. There is slight dilatation of the proximal aortic arch. Extensive consolidations involve both lungs. Additional findings described above. Chest/Abdomen CTA 10/25/18 17:03 IMPRESSION: This exam is nondiagnostic for aorta is suggested dissection because no IVC could not be administered due to infiltration of the IV site. There is slight dilatation of the proximal aortic arch. Extensive consolidations involve both lungs. Additional findings described above. Assessment & Plan - Plan Summary Plan Summary: A/ need of IV access for medications and fluids P/ placement of right subclavian CVL. Procedure, risks, benefits, and complications discussed with the patient, she understands and decides to proceed
--- NOTE | 2018-10-26 00:18 | Operative Report ---
Nonrecallable Operative Report DATE OF SURGERY: 10/26/18 PREOPERATIVE DIAGNOSIS: need of iv access for medications and fluids POSTOPERATIVE DIAGNOSIS: same OPERATION: 1) attempted right subclavian veon central line placement. 2) placement of right internal jugular vein central line SURGEON: ALONSO WORKMAN TISSUE REMOVED OR ALTERED: n/a COMPLICATIONS: none ESTIMATED BLOOD LOSS: negligeable INTRAOPERATIVE FINDINGS: attempted right subclavian vein stick x 4. easy insertion into right IJ vein PROCEDURE: see dictation
[2018-10-26] MEDS ORDERED: LEVOFLOXACIN 500 MG/D5W RTU 500 MG/100 ML RTUPB IV ONE (00:30)
--- NOTE | 2018-10-26 00:41 | RADIOLOGY REPORT (SQ) ---
CLINICAL HISTORY: CENTRAL LINE PLACEMENT COMPARISON: 10/25/2018. TECHNIQUE: XR CHEST 1 VIEW 10/26/2018 12:00 AM CDT FINDINGS: The heart is enlarged. There is bilateral perihilar airspace disease. There are bilateral pleural effusions. There is no pneumothorax. There are no acute osseous findings. Right IJ central line tip is in the upper SVC. IMPRESSION: Developing bilateral perihilar airspace disease. Right IJ central line in place with no pneumothorax.
[2018-10-26] MEDS: IPRATROPIUM BROMIDE 0.02% NEB 0.5 MG/2.5 ML AMPUL NEB SCH ×3 (00:51→17:00)
[2018-10-26] MEDS: LEVALBUTEROL HCL NEB 1.25 MG/3 ML AMPUL NEB SCH ×3 (00:52→17:00)
[2018-10-26] MEDS ORDERED: VANCOMYCIN HCL 1,500 MG in DEXTROSE 5%-WATER 250 ML IV ONE (01:00)
[2018-10-26] MEDS: METOCLOPRAMIDE HCL INJ/PF 10 MG/2 ML SDV IV SCH ×3 (01:40→11:34)
[2018-10-26] MEDS ORDERED: MEROPENEM 1 GM VIAL ONE (01:59)
[2018-10-26] MEDS ORDERED: VANCOMYCIN HCL INJ 1000 MG VIAL ONE (02:00)
[2018-10-26] MEDS ORDERED: VANCOMYCIN HCL INJ 500 MG VIAL ONE (02:00)
[2018-10-26] MEDS: RINGERS SOLUTION,LACTATED 1,000 ML IV PRN ×3 (03:17→22:21)
[2018-10-26 04:33] LABS: ANION GAP 11 (5-19); BLOOD UREA NITROGEN 22 mg/dL (7-20); CALCIUM 8.7 mg/dL (8.4-10.2); CARBON DIOXIDE 32 mmol/L (22-30); CHLORIDE 99 mmol/L (98-107); GLUCOSE 187 mg/dL (75-110); POTASSIUM 4.2 mmol/L (3.6-5.0); SODIUM 142.4 mmol/L (137-145)
[2018-10-26 04:43] LABS: HEMOGLOBIN 9.4 g/dL (12.0-15.5); MEAN CORPUSCULAR HEMOGLOBIN 28.2 pg (27.0-33.4); MEAN CORPUSCULAR HGB CONC 32.4 g/dL (32.0-36.0); MEAN CORPUSCULAR VOLUME 87 fl (80-97); PLATELET COUNT 212 10^3/uL (150-450); RED BLOOD COUNT 3.33 10^6/uL (3.72-5.28); RED CELL DISTRIBUTION WIDTH 13.9 % (11.5-14.0); WHITE BLOOD COUNT 19.7 10^3/uL (4.0-10.5)
[2018-10-26 04:44] LABS: CREATINE KINASE MB 0.83 ng/mL (<4.55); TROPONIN I 0.049 ng/mL
[2018-10-26 04:46] LABS: ABSOLUTE LYMPHOCYTES# (MANUAL) 0.4 10^3/uL (0.5-4.7); ABSOLUTE NEUTROPHILS# (MANUAL) 18.3 10^3/uL (1.7-8.2); BASOPHILS % (MANUAL) 0 % (0-2); EOSINOPHILS % (MANUAL) 0 % (0-6); LYMPHOCYTES % (MANUAL) 2 % (13-45); MONOCYTES % (MANUAL) 5 % (3-13); SEGMENTED NEUTROPHILS % (MAN) 93 % (42-78); TOTAL CELLS COUNTED 100
[2018-10-26 04:47] LABS: PLATELET COMMENT ADEQUATE; STOMATOCYTES 1+
--- NOTE | 2018-10-26 05:24 | PDOC H&P ---
History of Present Illness Admission Date/PCP: 10/25/2018 MAJOR WORKMAN MD Patient complains of: Chest pain History of Present Illness: FARHEEN AGUILAR is a 83 year old female who presented to the emergency room with acute chest pain. She admits that she developed chest pain and nausea earlier on the day of admission after feeling "not well" (generalized weakness, fatigue and malaise) for the last 3 days. The pain was a dull pressure of moderate intensity in the lower sternal and upper abdominal region without radiation and had its onset shortly after eating a sticky bun. The pain was accompanied by one episode of vomiting occurring shortly after the onset of the pain, worsening of her chronic dyspnea and a nonproductive cough. She acknowledges numerous prior similar episodes related to pneumonias. She has not identified any aggravating or ameliorating factors for her chest pain. In the emergency room she was found to have normal cardiac enzymes and a EKG that showed no evidence of acute ischemia or myocardial injury. A CAT scan of her chest showed bilateral pneumonia and she was also found to have significant hypoxia requiring supplemental oxygen. Patient had significant nausea and vomiting preventing her from being placed on BiPAP and subsequently she was placed to the ICU for further evaluation and treatment. Past Medical History Cardiac Medical History: Reports: Atrial Fibrillation, Congestive Heart Failure, Coronary Artery Disease, Myocardial Infarction - non-stemi, Hyperlipidema, Hypertension, Other - Valvular heart disease Pulmonary Medical History: Reports: Bronchitis, Chronic Obstructive Pulmonary Disease (COPD), Pneumonia - Recurrent, Respiratory Failure, Sleep Apnea - Suspected. The patient is to go for a sleep study as outpatient. Denies: Asthma EENT Medical History: Reports: Eyes - Prescription lenses Denies: Cataracts, Ears - Hearing aids Neurological Medical History: Denies: Hemorrhagic CVA, Ischemic CVA, Seizures Endocrine Medical History: Reports: Diabetes Mellitus Type 2, Hypothyroidism Denies: Diabetes Mellitus Type 1, Hyperthyroidism Renal/ Medical History: Denies: Chronic Kidney Disease, Nephrolithiasis Malignancy Medical History: Reports: None GI Medical History: Denies: Cirrhosis, Hepatitis Musculoskeltal Medical History: Reports: Arthritis Denies: Gout Skin Medical History: Denies: Eczema, Psoriasis Psychiatric Medical History: Reports: Depression - anxiety Denies: Alcohol Dependency, Substance Abuse, Tobacco Dependency Traumatic Medical History: Reports: None Hematology: Denies: Anemia, Bleeding Tendencies Infectious Medical History: Reports: None Past Surgical History Past Surgical History: Reports: Cardiac Catheterization, Cholecystectomy, Coronary Stent, Hysterectomy, Other - Valvuloplasty at [facility] Social History Information Source: Patient Lives with: Spouse/Significant other Smoking Status: Never Smoker Frequency of Alcohol Use: None Hx Recreational Drug Use: No Drugs: None Hx Prescription Drug Abuse: No - Advance Directive Resuscitation Status: Full Code Surrogate healthcare decision maker:: Rangel Aguilar Family History Family History: COPD, Hypertension, Malignancy Parental Family History Reviewed: Yes Children Family History Reviewed: No Sibling(s) Family History Reviewed.: Yes Medication/Allergy Home Medications: Ascorbic Acid [Vitamin C 500 mg Tablet] 500 mg PO DAILY 12/19/17 Atorvastatin Calcium [Lipitor 20 mg Tablet] 20 mg PO WSUPPER 12/19/17 Clopidogrel Bisulfate [Plavix 75 mg Tablet] 75 mg PO DAILY 12/19/17 Ferrous Sulfate [Feosol] 325 mg PO DAILY 12/19/17 Ipratropium/Albuterol Sulfate [Duoneb 3 ml Ampul] 3 ml NEB RTQ6HP PRN 12/19/17 Levothyroxine Sodium [Synthroid] 75 mcg PO Q6AM 12/19/17 Losartan Potassium [Cozaar] 100 mg PO QHS 12/19/17 Nitroglycerin [Nitrostat 0.4 mg (1/150 Gr) Tabs 25/Bottle] 1 tab SL Q5MP PRN 12/19/17 [place]-3 Acid Ethyl Esters [Lovaza 1 gm Capsule] 1 gm PO DAILY 12/19/17 Ondansetron HCl [Zofran 4 mg Tablet] 4 mg PO Q6HP PRN 12/19/17 Oxycodone HCl/Acetaminophen [Percocet 7.5-325 mg Tablet] 1 tab PO Q6HP PRN 12/19/17 Ubidecarenone [Coenzyme Q-10] 200 mg PO DAILY 12/19/17 Zinc Sulfate [Zinc-220 Capsule] 220 mg PO BID 12/19/17 Acetaminophen [Tylenol 325 mg Tablet] 650 mg PO Q4HP PRN 03/15/18 Pantoprazole Sodium [Protonix] 40 mg PO DAILY 03/15/18 Sertraline HCl 75 mg PO DAILY 03/15/18 Sodium Chloride [[place] Nasal [place] 44 ml Bottle] 1 spray NASL Q4HP PRN 03/15/18 Calcium Carbonate/Vitamin D3 [[place] 250 mg with Vitamin D 125 Units] 1 tab PO DAILY #30 tablet 03/20/18 Insulin Detemir [Levemir Insulin 100 units/mL] 12 unit SUBCUT DAILY insuln.pen 03/20/18 Meclizine HCl [Antivert 25 mg Tablet] 25 mg PO DAILYP PRN tablet 03/20/18 Oxymetazoline HCl [Nasal [place]] 30 ml NS BID PRN #1 mist 03/20/18 Amlodipine Besylate [Norvasc 10 mg Tablet] 10 mg PO QHS 04/01/18 Cranberry Conc/C/Bacill Coag [AZO Cranberry Tablet] 1 tab PO DAILY 04/01/18 Estropipate [Ogen] 1.5 mg PO MOWEFR@1000 04/01/18 Fluticasone/Salmeterol [Advair 250-50 Diskus 14 Dose/Diskus] 2 puff IH BID 04/01/18 Furosemide [Lasix 20 mg Tablet] 20 mg PO QAM 04/01/18 Hydroxyzine HCl [Atarax 25 mg Tablet] 1 tab PO Q6HP PRN 04/01/18 Insulin Lispro [Humalog Insulin 100 Unit/1 ml 3 ml Vial] 0 unit SUBCUT .SLD SCALE 04/01/18 Loteprednol Etabonate [Lotemax] 1 applic OU BID 04/01/18 Metoprolol Succinate [Toprol Xl] 50 mg PO QAM 04/01/18 Allergies/Adverse Reactions: aspirin [Aspirin] Allergy (Verified 04/01/18 14:24) codeine Allergy (Verified 04/01/18 14:24) erythromycin base [Erythromycin Base] Allergy (Verified 04/01/18 14:24) ibuprofen [From Motrin] Allergy (Verified 04/01/18 14:24) morphine [Morphine] Allergy (Verified 04/01/18 14:24) Sulfa (Sulfonamide Antibiotics) Allergy (Verified 04/01/18 14:24) Review of Systems Constitutional: PRESENT: other - Malaise. ABSENT: chills, fever(s) Eyes: ABSENT: visual disturbances, other - Ocular pain Ears: ABSENT: hearing changes, other - Ear pain Nose, Mouth, and Throat: ABSENT: mouth pain, sore throat Cardiovascular: PRESENT: as per HPI, chest pain. ABSENT: dyspnea on exertion, edema, orthropnea, palpitations Respiratory: ABSENT: cough, dyspnea Gastrointestinal: PRESENT: as per HPI, abdominal pain, dysphagia, nausea, vomiting, other - Dyspepsia. ABSENT: constipation Genitourinary: ABSENT: dysuria, hematuria Musculoskeletal: ABSENT: back pain, joint swelling, muscle weakness Integumentary: ABSENT: pruritus, rash Neurological: ABSENT: confusion, convulsions, focal weakness, memory loss, syncope Psychiatric: ABSENT: anxiety, depression Endocrine: ABSENT: cold intolerance, heat intolerance Hematologic/Lymphatic: ABSENT: easy bleeding, easy bruising Physical Exam Vital Signs: Temp Pulse Resp BP Pulse Ox 96 10/25/18 16:32 Intake & Output 10/23/18 10/24/18 10/25/18 23:59 23:59 23:59 Weight 67 kg General appearance: PRESENT: cooperative, mild distress - Acutely ill with nausea, obese Head exam: PRESENT: atraumatic, normocephalic Eye exam: ABSENT: conjunctival injection, scleral icterus Ear exam: PRESENT: normal external ear exam. ABSENT: bleeding, drainage Mouth exam: PRESENT: dry mucosa, neck supple Neck exam: ABSENT: JVD, thyromegaly, tracheal deviation Respiratory exam: PRESENT: rales - Coarse rales are present throughout the bilateral posterior medial lower lung carty., rhonchi - Coarse rhonchi are noted in the bilateral posterior medial basis, symmetrical, tachypnea Cardiovascular exam: PRESENT: RRR, tachycardia. ABSENT: clicks, gallop, rubs Pulses: PRESENT: normal radial pulses, normal dorsalis pedis pul Vascular exam: PRESENT: normal capillary refill. ABSENT: pallor GI/Abdominal exam: PRESENT: normal bowel sounds, soft, tenderness - Mild epigastric tenderness Rectal exam: PRESENT: deferred Extremities exam: ABSENT: joint swelling, pedal edema Musculoskeletal exam: ABSENT: deformity, dislocation Neurological exam: PRESENT: alert, oriented to person, oriented to place, oriented to time, oriented to situation, CN II-XII grossly intact. ABSENT: motor sensory deficit Psychiatric exam: PRESENT: appropriate affect, normal mood Skin exam: PRESENT: dry, intact, warm. ABSENT: jaundice, rash, urticaria Results Laboratory Results: 10/25/18 19:27 10/25/18 21:28 10/25/18 10/25/18 10/25/18 19:06 19:27 19:27 WBC 15.5 H RBC 3.80 Hgb 10.7 L Hct 33.2 L MCV 87 MCH 28.2 MCHC 32.3 RDW 14.0 Plt Count 254 Seg Neutrophils % 87.8 H Lymphocytes % 7.8 L Monocytes % 2.8 L Eosinophils % 1.2 Basophils % 0.4 Absolute Neutrophils 13.6 H Absolute Lymphocytes 1.2 Absolute Monocytes 0.4 Absolute Eosinophils 0.2 Absolute Basophils 0.1 Carbonic Acid HCO3/H2CO3 Ratio ABG pH ABG pCO2 ABG pO2 ABG HCO3 ABG O2 Saturation ABG Base Excess FiO2 Sodium Cancelled Potassium Cancelled Chloride Cancelled Carbon Dioxide Cancelled Anion Gap Cancelled BUN Cancelled Creatinine Cancelled Est GFR ( Amer) Cancelled Est GFR (Non-Af Amer) Cancelled Glucose Cancelled Lactic Acid 2.8 H Calcium Cancelled Total Bilirubin Cancelled AST Cancelled ALT Cancelled Alkaline Phosphatase Cancelled Total Protein Cancelled Albumin Cancelled 10/25/18 10/25/18 21:28 21:55 WBC RBC Hgb Hct MCV MCH MCHC RDW Plt Count Seg Neutrophils % Lymphocytes % Monocytes % Eosinophils % Basophils % Absolute Neutrophils Absolute Lymphocytes Absolute Monocytes Absolute Eosinophils Absolute Basophils Carbonic Acid 1.64 H HCO3/H2CO3 Ratio 19:1 ABG pH 7.39 ABG pCO2 54.4 H ABG pO2 91.6 ABG HCO3 32.3 H ABG O2 Saturation 96.8 ABG Base Excess 6.2 FiO2 15L Sodium 140.8 Potassium 3.7 Chloride 102 Carbon Dioxide 28 Anion Gap 11 BUN 22 H Creatinine 0.65 Est GFR ( Amer) > 60 Est GFR (Non-Af Amer) > 60 Glucose 128 H Lactic Acid Calcium 8.3 L Total Bilirubin 0.6 AST 28 ALT 31 Alkaline Phosphatase 110 Total Protein 6.8 Albumin 3.4 L 10/25/18 19:27 Troponin I Cancelled Impressions: Chest X-Ray 10/25/18 16:32 IMPRESSION: 1. Mild prominence of the interstitial markings in the lungs, probably on a chronic basis. 2. Stable cardiomegaly since the prior study. 3. There is fullness in the right hilar region, may be on the basis of prominence of the right pulmonary artery versus other underlying pathology. This appears to represent a new finding since the prior examination. Further evaluation with CT chest with IV contrast. Abdomen/Pelvis CTA 10/25/18 17:03 IMPRESSION: This exam is nondiagnostic for aorta is suggested dissection because no IVC could not be administered due to infiltration of the IV site. There is slight dilatation of the proximal aortic arch. Extensive consolidations involve both lungs. Additional findings described above. Chest/Abdomen CTA 10/25/18 17:03 IMPRESSION: This exam is nondiagnostic for aorta is suggested dissection because no IVC could not be administered due to infiltration of the IV site. There is slight dilatation of the proximal aortic arch. Extensive consolidations involve both lungs. Additional findings described above. Assessment and Plan - Diagnosis (1) Acute respiratory failure with hypoxia Is this a current diagnosis for this admission?: Yes Plan: Patient's respiratory failure will be treated with supplemental oxygen as required for maintenance of inadequate O2 saturation. Once her nausea and vomiting is controlled she may use BiPAP or CPAP if required. Arterial blood gases will be checked every morning and as needed. (2) SIRS (systemic inflammatory response syndrome) Is this a current diagnosis for this admission?: Yes Plan: Patient will be observed closely for signs of sepsis. She will be monitored with serial lactic acid levels and her vital signs and organ functions will be closely scrutinized. (3) Vomiting with nausea, not intractable Qualifiers: Vomiting type: unspecified Qualified Code(s): R11.2 - Nausea with vomiting, unspecified Is this a current diagnosis for this admission?: Yes Plan: Patient be treated with antiemetics and IV fluids for both supportive insists symptomatic care. Her daily CBC, metabolic profile and magnesium levels will be followed. (4) Bilateral pneumonia Qualifiers: Pneumonia type: due to unspecified organism Lung location: unspecified part of lung Qualified Code(s): J18.9 - Pneumonia, unspecified organism Is this a current diagnosis for this admission?: Yes Plan: Patient's pneumonia will be treated with IV antibiotics utilizing meropenem, vancomycin and Levaquin initially. A pulmonology consultation will be obtained. Patient also be treated with Mucomyst twice daily and Xopenex nebulizers as needed. (5) Chest pain Qualifiers: Chest pain type: unspecified Qualified Code(s): R07.9 - Chest pain, unspecified Is this a current diagnosis for this admission?: Yes Plan: Serial cardiac enzymes will be obtained. Further intervention and treatment will be based upon the results of her cardiac evaluation. - Time Time Spent with patient: 25-34 minutes Medications reviewed and adjusted accordingly: Yes Anticipated discharge: Home - Inpatient Certification Based on my medical assessment, after consideration of the patient's comorbidities, presenting symptoms, or acuity I expect that the services needed warrant INPATIENT care.: Yes I certify that my determination is in accordance with my understanding of Medicare's requirements for reasonable and necessary INPATIENT services [42 CFR 412.3e].: Yes Medical Necessity: Significant Comorbidiites Make Outpatient Treatment Too Risky, Need Close Monitoring Due to Risk of Patient Decompensation, Need For Continuous Telemetry Monitoring, Need for Nebulizer Therapy and Monitoring of Response, Need for IV Antibiotics, Risk of Complication if Not Cared For in Hospital, Risk of Diagnosis Which Will Require Inpatient Eval/Care/Monitoring
[2018-10-26] MEDS: HEPARIN SOD (PORCINE) 5,000 UNIT/ML 1 ML SYRINGE SUBCUT SCH ×3 (05:27→21:33)
[2018-10-26] MEDS ORDERED: MEROPENEM 1 GM in NORMAL SALINE 50 ML IV SCH (06:00)
[2018-10-26 06:17] LABS: ARTERIAL BLOOD BASE EXCESS 4.9 mmol/L; ARTERIAL BLOOD H2CO3 1.51 mmol/L (1.05-1.35); ARTERIAL BLOOD HCO3 30.4 mmol/L (20-24); ARTERIAL BLOOD O2 SATURATION 90.8 % (94-98); ARTERIAL BLOOD PCO2 50.1 mmHg (35-45); ARTERIAL BLOOD PO2 60.3 mmHg (80-100); ARTERIAL BLOOD TOTAL CO2 31.9 mmol/L (21-25)
--- NOTE | 2018-10-26 06:19 | OPERATIVE REPORT E ---
Operative Report NAME: FARHEEN AGUILAR : 1935 AGE: 83Y DATE OF SURGERY: 10/25/2018 ROOM: 609 PREOPERATIVE DIAGNOSIS: NEED FOR IV ACCESS. POSTOPERATIVE DIAGNOSIS: NEED FOR IV ACCESS. OPERATION: 1. Attempted right subclavian vein central venous line placement. 2. Placement of a right internal jugular vein central venous line. SURGEON: ALONSO WORKMAN M.D. SQL DATABASE DEVELOPER: None. ESTIMATED BLOOD LOSS: Minimal, less than 10 mL. COMPLICATIONS: None. ANESTHESIA: About 20 mg of 1% lidocaine without epinephrine. INDICATION AND FINDINGS: This is an 83-year-old female who is in need of IV access for administration of medication and fluids. DESCRIPTION OF PROCEDURE: The procedure was done in the emergency room. The patient was placed in a supine position. A towel was placed between the scapula and the right side of her chest and neck prepped and draped in usual fashion. The area just below the mid clavicle was infiltrated with lidocaine and then 16-gauge needle was inserted and multiple passes were done without difficulty into the jugular vein. At this point, the needle was removed. The right neck was approached. The apex of the sternocleidomastoid muscle triangle was infiltrated with lidocaine and a small fine needle was utilized to find the internal jugular vein. After this, a 16-gauge needle was then easily used to identify the right internal jugular vein. The guidewire was inserted over the needle. The needle was then removed. The insertion point of the guidewire enlarged with a #11 blade and tissue dilator, which was then removed. The triple-lumen catheter inserted over the guidewire up to 16 cm. The guidewire was removed. Each port was aspirated and flushed with normal saline without difficulty. The catheter was secured to the skin with silk sutures and sterile dressings. The patient tolerated the procedure well. A chest x-ray was then obtained to confirm good position of the line. DICTATING PHYSICIAN: ALONSO WORKMAN M.D. [id number] PHY#: [id number] ID: [id number] JOB#: [id number] ACCT: [id number] cc:ALONSO WORKMAN M.D. > MTDD
[2018-10-26 06:25] LABS: ARTERIAL BLOOD FIO2 6 L
[2018-10-26] MEDS: FAMOTIDINE INJ/PF 20 MG/2 ML SDV IV SCH ×2 (10:39→21:34)
[2018-10-26 11:52] LABS: CREATINE KINASE MB 0.86 ng/mL (<4.55); TROPONIN I 0.061 ng/mL
--- NOTE | 2018-10-26 15:15 | PDOC PROGRESS REPORT ---
Subjective Progress Note for:: 10/26/18 Subjective:: This is 83 years old female patient with past medical history of atrial fibrillation, coronary artery disease, VA, CHF, hyperlipidemia, hypertension, COPD, type 2 diabetes mellitus and hypothyroidism, presents with chief complaint of generalized weakness fatigue and malaise of 3 days duration. Patient also complaining of some chest pain which is described as dull pressure- like moderate intensity in the lower sternal and upper abdominal region without radiation and associated with eating. Her blood work shows leukocytosis of 15,000 and today it is 19,000. Her CT of the chest reported as fairly extensive bilateral consolidation. Patient has been started on triple antibiotics including Levaquin, meropenem and vancomycin. I discontinued meropenem and Levaquin and switch her to cefepime. This morning I seen patient resting in bed comfortably she is awake alert and oriented. Her vitals and her O2 saturation is within normal limits. Patient is stable enough to be downgraded to IMCU. Reason For Visit: PNEUMONIA Physical Exam Vital Signs: Temp Pulse Resp BP Pulse Ox 100.2 F 105 H 28 H 140/47 H 97 10/26/18 12:00 10/26/18 12:00 10/26/18 12:00 10/26/18 12:00 10/26/18 12:00 Intake & Output 10/25/18 10/26/18 10/27/18 06:59 06:59 06:59 Intake Total 3450 Output Total 305 175 Balance -305 3275 Weight 80.4 kg General appearance: PRESENT: no acute distress Neck exam: ABSENT: carotid bruit, JVD, lymphadenopathy, thyromegaly Respiratory exam: PRESENT: crackles, decreased breath sounds Cardiovascular exam: PRESENT: irregular rhythm GI/Abdominal exam: PRESENT: normal bowel sounds, soft. ABSENT: distended, guarding, mass, organolmegaly, rebound, tenderness Neurological exam: PRESENT: alert, awake, oriented to time, oriented to situation Results Laboratory Results: 10/26/18 04:00 10/26/18 04:00 10/25/18 10/25/18 10/25/18 19:06 19:27 19:27 WBC 15.5 H RBC 3.80 Hgb 10.7 L Hct 33.2 L MCV 87 MCH 28.2 MCHC 32.3 RDW 14.0 Plt Count 254 Seg Neutrophils % 87.8 H Lymphocytes % 7.8 L Monocytes % 2.8 L Eosinophils % 1.2 Basophils % 0.4 Absolute Neutrophils 13.6 H Absolute Lymphocytes 1.2 Absolute Monocytes 0.4 Absolute Eosinophils 0.2 Absolute Basophils 0.1 Carbonic Acid HCO3/H2CO3 Ratio ABG pH ABG pCO2 ABG pO2 ABG HCO3 ABG O2 Saturation ABG Base Excess FiO2 Sodium Cancelled Potassium Cancelled Chloride Cancelled Carbon Dioxide Cancelled Anion Gap Cancelled BUN Cancelled Creatinine Cancelled Est GFR ( Amer) Cancelled Est GFR (Non-Af Amer) Cancelled Glucose Cancelled Lactic Acid 2.8 H Calcium Cancelled Magnesium Total Bilirubin Cancelled AST Cancelled ALT Cancelled Alkaline Phosphatase Cancelled Total Protein Cancelled Albumin Cancelled TSH Free T4 Free T3 pg/mL Urine Color Urine Appearance Urine pH Ur Specific [place] Urine Protein Urine Glucose (UA) Urine Ketones Urine Blood Urine Nitrite Ur Leukocyte Esterase Urine WBC (Auto) Urine RBC (Auto) 10/25/18 10/25/18 10/25/18 21:28 21:28 21:55 WBC RBC Hgb Hct MCV MCH MCHC RDW Plt Count Seg Neutrophils % Lymphocytes % Monocytes % Eosinophils % Basophils % Absolute Neutrophils Absolute Lymphocytes Absolute Monocytes Absolute Eosinophils Absolute Basophils Carbonic Acid 1.64 H HCO3/H2CO3 Ratio 19:1 ABG pH 7.39 ABG pCO2 54.4 H ABG pO2 91.6 ABG HCO3 32.3 H ABG O2 Saturation 96.8 ABG Base Excess 6.2 FiO2 15L Sodium 140.8 Potassium 3.7 Chloride 102 Carbon Dioxide 28 Anion Gap 11 BUN 22 H Creatinine 0.65 Est GFR ( Amer) > 60 Est GFR (Non-Af Amer) > 60 Glucose 128 H Lactic Acid Calcium 8.3 L Magnesium Total Bilirubin 0.6 AST 28 ALT 31 Alkaline Phosphatase 110 Total Protein 6.8 Albumin 3.4 L TSH Free T4 1.40 Free T3 pg/mL 3.22 Urine Color Urine Appearance Urine pH Ur Specific [place] Urine Protein Urine Glucose (UA) Urine Ketones Urine Blood Urine Nitrite Ur Leukocyte Esterase Urine WBC (Auto) Urine RBC (Auto) 10/25/18 10/26/18 10/26/18 22:21 01:17 04:00 WBC RBC Hgb Hct MCV MCH MCHC RDW Plt Count Seg Neutrophils % Lymphocytes % Monocytes % Eosinophils % Basophils % Absolute Neutrophils Absolute Lymphocytes Absolute Monocytes Absolute Eosinophils Absolute Basophils Carbonic Acid HCO3/H2CO3 Ratio ABG pH ABG pCO2 ABG pO2 ABG HCO3 ABG O2 Saturation ABG Base Excess FiO2 Sodium 142.4 Potassium 4.2 Chloride 99 Carbon Dioxide 32 H Anion Gap 11 BUN 22 H Creatinine 0.78 Est GFR ( Amer) > 60 Est GFR (Non-Af Amer) > 60 Glucose 187 H Lactic Acid 1.3 Calcium 8.7 Magnesium Total Bilirubin AST ALT Alkaline Phosphatase Total Protein Albumin TSH Free T4 Free T3 pg/mL Urine Color YELLOW Urine Appearance CLEAR Urine pH 5.0 Ur Specific [place] 1.015 Urine Protein NEGATIVE Urine Glucose (UA) NEGATIVE Urine Ketones NEGATIVE Urine Blood NEGATIVE Urine Nitrite NEGATIVE Ur Leukocyte Esterase NEGATIVE Urine WBC (Auto) 0 Urine RBC (Auto) 0 10/26/18 10/26/18 10/26/18 04:00 04:00 04:00 WBC 19.7 H RBC 3.33 L Hgb 9.4 L Hct 29.0 L MCV 87 MCH 28.2 MCHC 32.4 RDW 13.9 Plt Count 212 Seg Neutrophils % Not Reportable Lymphocytes % Not Reportable Monocytes % Not Reportable Eosinophils % Not Reportable Basophils % Not Reportable Absolute Neutrophils Not Reportable Absolute Lymphocytes Not Reportable Absolute Monocytes Not Reportable Absolute Eosinophils Not Reportable Absolute Basophils Not Reportable Carbonic Acid HCO3/H2CO3 Ratio ABG pH ABG pCO2 ABG pO2 ABG HCO3 ABG O2 Saturation ABG Base Excess FiO2 Sodium Potassium Chloride Carbon Dioxide Anion Gap BUN Creatinine Est GFR ( Amer) Est GFR (Non-Af Amer) Glucose Lactic Acid 2.0 Calcium Magnesium Total Bilirubin AST ALT Alkaline Phosphatase Total Protein Albumin TSH 1.30 Free T4 Free T3 pg/mL Urine Color Urine Appearance Urine pH Ur Specific [place] Urine Protein Urine Glucose (UA) Urine Ketones Urine Blood Urine Nitrite Ur Leukocyte Esterase Urine WBC (Auto) Urine RBC (Auto) 10/26/18 10/26/18 10/26/18 05:44 09:10 10:40 WBC RBC Hgb Hct MCV MCH MCHC RDW Plt Count Seg Neutrophils % Lymphocytes % Monocytes % Eosinophils % Basophils % Absolute Neutrophils Absolute Lymphocytes Absolute Monocytes Absolute Eosinophils Absolute Basophils Carbonic Acid 1.51 H HCO3/H2CO3 Ratio 20:1 ABG pH 7.40 ABG pCO2 50.1 H ABG pO2 60.3 L ABG HCO3 30.4 H ABG O2 Saturation 90.8 L ABG Base Excess 4.9 FiO2 6 L Sodium Potassium Chloride Carbon Dioxide Anion Gap BUN Creatinine Est GFR ( Amer) Est GFR (Non-Af Amer) Glucose Lactic Acid 1.6 Calcium Magnesium 1.6 Total Bilirubin AST ALT Alkaline Phosphatase Total Protein Albumin TSH Free T4 Free T3 pg/mL Urine Color Urine Appearance Urine pH Ur Specific [place] Urine Protein Urine Glucose (UA) Urine Ketones Urine Blood Urine Nitrite Ur Leukocyte Esterase Urine WBC (Auto) Urine RBC (Auto) 10/25/18 10/25/18 10/26/18 19:27 21:55 04:00 Creatine Kinase 46 CK-MB (CK-2) Troponin I Cancelled < 0.012 10/26/18 10/26/18 10/26/18 04:05 10:40 10:40 Creatine Kinase 48 CK-MB (CK-2) 0.83 0.86 Troponin I 0.049 0.061 Impressions: Abdomen/Pelvis CTA 10/25/18 17:03 IMPRESSION: This exam is nondiagnostic for aorta is suggested dissection because no IVC could not be administered due to infiltration of the IV site. There is slight dilatation of the proximal aortic arch. Extensive consolidations involve both lungs. Additional findings described above. Chest/Abdomen CTA 10/25/18 17:03 IMPRESSION: This exam is nondiagnostic for aorta is suggested dissection because no IVC could not be administered due to infiltration of the IV site. There is slight dilatation of the proximal aortic arch. Extensive consolidations involve both lungs. Additional findings described above. Chest X-Ray 10/26/18 00:00 IMPRESSION: Developing bilateral perihilar airspace disease. Right IJ central line in place with no pneumothorax. Assessment and Plan - Diagnosis (1) Bilateral pneumonia Is this a current diagnosis for this admission?: Yes Plan: It has leukocytosis and extensive bilateral consolidation which is compatible with pneumonia. Patient has been on cefepime and vancomycin. We will adjust her antibiotics based on her clinical progress and culture results. We will repeat chest x-ray in 48 hours. (2) Acute respiratory failure with hypoxia Is this a current diagnosis for this admission?: Yes Plan: Continue supplemental oxygen. (3) Nausea and vomiting Qualifiers: Vomiting Intractability: non-intractable Is this a current diagnosis for this admission?: Yes Plan: Has been subsiding after she was administered with Reglan (4) Systemic inflammatory response syndrome Is this a current diagnosis for this admission?: Yes Plan: Continue antibiotics and close monitoring. (5) Chest pain Is this a current diagnosis for this admission?: Yes Plan: Cardiac enzymes are negative and pain is reproducible. (6) History of atrial fibrillation Is this a current diagnosis for this admission?: Yes Plan: Rate controlled (7) COPD (chronic obstructive pulmonary disease) Qualifiers: Emphysema type: unspecified Is this a current diagnosis for this admission?: Yes Plan: Continue current regimen. (8) Coronary artery disease Qualifiers: Coronary Disease-Associated Artery/Lesion type: squaxin artery Is this a current diagnosis for this admission?: Yes Plan: Stable continue current management. (9) Hypertension Qualifiers: Hypertension type: essential hypertension Qualified Code(s): I10 - Essential (primary) hypertension Is this a current diagnosis for this admission?: Yes Plan: Continue home medications. (10) Hyperlipidemia Qualifiers: Hyperlipidemia type: unspecified Qualified Code(s): E78.5 - Hyperlipidemia, unspecified Is this a current diagnosis for this admission?: Yes Plan: Continue home medications.
[2018-10-26] MEDS ORDERED: (PENDING PHARMACY ID) (Alprazolam [Xanax] 0.5 MG) PO PRN (15:16)
[2018-10-26] MEDS ORDERED: PROMETHAZINE HCL 25 MG TABLET PO PRN (15:16)
[2018-10-26] MEDS ORDERED: NITROGLYCERIN 0.4 MG/TAB 25 TAB/BOTTLE SL PRN (15:16)
[2018-10-26] MEDS ORDERED: (PENDING PHARMACY ID) (Oxycodone Hcl/Acetaminophen [Percocet 7.5-325 Mg Tablet] 1 TAB) PO PRN (15:16)
[2018-10-26] MEDS ORDERED: ALPRAZOLAM 0.5 MG TABLET PO PRN (16:06)
[2018-10-26] MEDS ORDERED: OXYCODONE HCL IR 5 MG TABLET PO PRN (16:11)
--- NOTE | 2018-10-26 16:12 | PDOC CONSULTATION ---
Consultation Consult Date: 10/26/18 Attending physician:: JANNA HENDRIKCS Provider Consulted: ABDULLAHI ANDUJAR Consult reason:: hypoxia/pna History of Present Illness Admission Date/PCP: 10/25/18 22:29 MAJOR WORKMAN MD History of Present Illness: FARHEEN AGUILAR is a 83 year old female, 83-year-old female presented with cough increasing shortness of breath and hypoxia which occurred over several days but got progressively worse and resulted in her coming to the hospital.. She did not need multiple medical multiple times in the past and has had a modified barium swallow that showed flash penetration resulting in multiple recurrent pneumonias. In addition to this she has severe aortic stenosis moderate aortic regurg mitral regurg and pulmonary hypertension borderline left ventricular function Past Medical History Cardiac Medical History: Reports: Atrial Fibrillation, Congestive Heart Failure, Coronary Artery Disease, Myocardial Infarction - non-stemi, Hyperlipidema, Hypertension, Other - Valvular heart disease Pulmonary Medical History: Reports: Bronchitis, Chronic Obstructive Pulmonary Disease (COPD), Pneumonia - Recurrent, Respiratory Failure, Sleep Apnea - Suspected. The patient is to go for a sleep study as outpatient., Other - Pulmonary hypertension Denies: Asthma EENT Medical History: Reports: Eyes - Prescription lenses Denies: Cataracts, Ears - Hearing aids Neurological Medical History: Denies: Hemorrhagic CVA, Ischemic CVA, Seizures Endocrine Medical History: Reports: Diabetes Mellitus Type 2, Hypothyroidism Denies: Diabetes Mellitus Type 1, Hyperthyroidism Renal/ Medical History: Denies: Chronic Kidney Disease, Nephrolithiasis Malignancy Medical History: Reports: None GI Medical History: Denies: Cirrhosis, Hepatitis, Ulcerative Colitis Musculoskeltal Medical History: Reports: Arthritis Denies: Gout Skin Medical History: Denies: Eczema, Psoriasis Psychiatric Medical History: Reports: Depression - anxiety Denies: Alcohol Dependency, Substance Abuse, Tobacco Dependency Traumatic Medical History: Reports: None Denies: Gunshot Wound, Traumatic Brain Injury Hematology: Denies: Anemia, Bleeding Tendencies Infectious Medical History: Reports: None Denies: Clostridium Difficile Past Surgical History Past Surgical History: Reports: Cardiac Catheterization, Cholecystectomy, Coronary Stent, Hysterectomy, Other - Valvuloplasty at [facility] Social History Lives with: Spouse/Significant other Smoking Status: Never Smoker Frequency of Alcohol Use: None Hx Recreational Drug Use: No Drugs: None Hx Prescription Drug Abuse: No Do you have pets?: No Have you had any respiratory illnesses as a child?: No Have you been exposed to any sick contacts recently?: Yes - Spouse Have you had any recent respiratory illnesses?: Yes Have you travelled outside of [place] in the past 12 months?: No - Advance Directive Resuscitation Status: Full Code Family History Family History: COPD, Hypertension, Malignancy Parental Family History Reviewed: Yes Children Family History Reviewed: Yes Sibling(s) Family History Reviewed.: Yes Medication/Allergy Home Medications: Alprazolam [Xanax] 0.5 mg PO BIDP PRN 10/26/18 Alprazolam [Xanax] 1 mg PO HSP PRN 10/26/18 Clopidogrel Bisulfate [Plavix 75 mg Tablet] 75 mg PO DAILY 10/26/18 Estropipate [Ogen] 1.5 mg PO MOWEFR@1000 10/26/18 Ferrous Sulfate [Feosol 325 mg Tablet] 325 mg PO BID 10/26/18 Fluticasone Propion/Salmeterol [Wixela 250-50 Inhub] 1 puff IH Q12 10/26/18 Furosemide [Lasix 80 mg Tablet] 80 mg PO DAILY 10/26/18 Insulin Detemir [Levemir] 12 units SQ DAILY 10/26/18 Ipratropium/Albuterol Sulfate [Duoneb 3 ml Ampul] 1 vial NEB Q6HP PRN 10/26/18 Levothyroxine Sodium [Synthroid 0.075 mg Tablet] 0.075 mg PO Q6AM 10/26/18 Nitroglycerin [Nitrostat 0.4 mg (1/150 Gr) Tabs 25/Bottle] 0.4 mg SL Q5MP PRN 10/26/18 Mcgregor-3 Acid Ethyl Esters [Lovaza 1 gm Capsule] 1 gm PO DAILY 10/26/18 Oxycodone HCl/Acetaminophen [Percocet 7.5-325 mg Tablet] 1 tab PO Q8HP PRN 10/26/18 Pantoprazole Sodium [Protonix [address] Tablet] 40 mg PO DAILY 10/26/18 Promethazine HCl [Phenergan 25 mg Tablet] 25 mg PO TIDP PRN 10/26/18 Simvastatin [Zocor 40 mg Tablet] 40 mg PO QHS 10/26/18 Telmisartan [Micardis 80 mg Tablet] 80 mg PO QHS 10/26/18 Allergies/Adverse Reactions: aspirin [Aspirin] Allergy (Verified 10/25/18 14:24) codeine Allergy (Verified 04/01/18 14:24) erythromycin base [Erythromycin Base] Allergy (Verified 04/01/18 14:24) ibuprofen [From Motrin] Allergy (Verified 04/01/18 14:24) morphine [Morphine] Allergy (Verified 04/01/18 14:24) Sulfa (Sulfonamide Antibiotics) Allergy (Verified 04/01/18 14:24) Review of Systems Constitutional: PRESENT: anorexia, chills, fever(s), weakness Eyes: ABSENT: visual disturbances Ears: ABSENT: hearing changes Nose, Mouth, and Throat: ABSENT: headache(s), mouth pain Cardiovascular: PRESENT: dyspnea on exertion, orthropnea, palpitations Respiratory: PRESENT: cough, dyspnea, sputum. ABSENT: hemoptysis Gastrointestinal: ABSENT: abdominal pain, bloating, coffee ground emesis, dysphagia, hematemesis, hematochezia, melena, nausea, vomiting Genitourinary: ABSENT: dysuria, hematuria Musculoskeletal: ABSENT: deformity, joint swelling Integumentary: ABSENT: pruritus, rash Neurological: ABSENT: abnormal speech, confusion, focal weakness, lack of coordination, memory loss Psychiatric: ABSENT: hallucinations, homidical ideation, suicidal ideation Endocrine: ABSENT: cold intolerance, heat intolerance, polydipsia, polyuria Hematologic/Lymphatic: PRESENT: easy bruising Allergic/Immunologic: PRESENT: seasonal rhinorrhea Physical Exam Vital Signs: Temp Pulse Resp BP Pulse Ox 100.4 F 96 24 H 141/47 H 93 10/26/18 08:00 10/26/18 09:18 10/26/18 08:10 10/26/18 08:00 10/26/18 08:10 Intake & Output 10/25/18 10/26/18 10/27/18 06:59 06:59 06:59 Intake Total 50 Output Total 305 100 Balance -305 -50 Weight 80.4 kg General appearance: PRESENT: no acute distress, cooperative, disheveled, obese Head exam: PRESENT: atraumatic, normocephalic Eye exam: PRESENT: conjunctiva pale, EOMI. ABSENT: nystagmus, periorbital swelling, scleral icterus Mouth exam: PRESENT: dry mucosa, neck supple, tongue midline Neck exam: ABSENT: carotid bruit, full ROM, JVD, lymphadenopathy, meningismus, tenderness, thyromegaly, tracheal deviation, tracheostomy, other Respiratory exam: PRESENT: decreased breath sounds, prolonged expiratory phas, rales, rhonchi, unlabored. ABSENT: retraction, stridor Cardiovascular exam: PRESENT: irregular rhythm Pulses: PRESENT: normal radial pulses GI/Abdominal exam: PRESENT: soft. ABSENT: mass Gentrourinary exam: PRESENT: indwelling catheter Extremities exam: ABSENT: calf tenderness, clubbing, joint swelling Musculoskeletal exam: ABSENT: ambulatory, deformity, dislocation Neurological exam: PRESENT: awake Psychiatric exam: PRESENT: flat affect Skin exam: PRESENT: dry, warm Results Laboratory Results: 10/26/18 04:00 10/26/18 04:00 10/25/18 10/25/18 10/25/18 19:06 19:27 19:27 WBC 15.5 H RBC 3.80 Hgb 10.7 L Hct 33.2 L MCV 87 MCH 28.2 MCHC 32.3 RDW 14.0 Plt Count 254 Seg Neutrophils % 87.8 H Lymphocytes % 7.8 L Monocytes % 2.8 L Eosinophils % 1.2 Basophils % 0.4 Absolute Neutrophils 13.6 H Absolute Lymphocytes 1.2 Absolute Monocytes 0.4 Absolute Eosinophils 0.2 Absolute Basophils 0.1 Carbonic Acid HCO3/H2CO3 Ratio ABG pH ABG pCO2 ABG pO2 ABG HCO3 ABG O2 Saturation ABG Base Excess FiO2 Sodium Cancelled Potassium Cancelled Chloride Cancelled Carbon Dioxide Cancelled Anion Gap Cancelled BUN Cancelled Creatinine Cancelled Est GFR ( Amer) Cancelled Est GFR (Non-Af Amer) Cancelled Glucose Cancelled Lactic Acid 2.8 H Calcium Cancelled Total Bilirubin Cancelled AST Cancelled ALT Cancelled Alkaline Phosphatase Cancelled Total Protein Cancelled Albumin Cancelled TSH Free T4 Free T3 pg/mL Urine Color Urine Appearance Urine pH Ur Specific [place] Urine Protein Urine Glucose (UA) Urine Ketones Urine Blood Urine Nitrite Ur Leukocyte Esterase Urine WBC (Auto) Urine RBC (Auto) 10/25/18 10/25/18 10/25/18 21:28 21:28 21:55 WBC RBC Hgb Hct MCV MCH MCHC RDW Plt Count Seg Neutrophils % Lymphocytes % Monocytes % Eosinophils % Basophils % Absolute Neutrophils Absolute Lymphocytes Absolute Monocytes Absolute Eosinophils Absolute Basophils Carbonic Acid 1.64 H HCO3/H2CO3 Ratio 19:1 ABG pH 7.39 ABG pCO2 54.4 H ABG pO2 91.6 ABG HCO3 32.3 H ABG O2 Saturation 96.8 ABG Base Excess 6.2 FiO2 15L Sodium 140.8 Potassium 3.7 Chloride 102 Carbon Dioxide 28 Anion Gap 11 BUN 22 H Creatinine 0.65 Est GFR ( Amer) > 60 Est GFR (Non-Af Amer) > 60 Glucose 128 H Lactic Acid Calcium 8.3 L Total Bilirubin 0.6 AST 28 ALT 31 Alkaline Phosphatase 110 Total Protein 6.8 Albumin 3.4 L TSH Free T4 1.40 Free T3 pg/mL 3.22 Urine Color Urine Appearance Urine pH Ur Specific [place] Urine Protein Urine Glucose (UA) Urine Ketones Urine Blood Urine Nitrite Ur Leukocyte Esterase Urine WBC (Auto) Urine RBC (Auto) 10/25/18 10/26/18 10/26/18 22:21 01:17 04:00 WBC RBC Hgb Hct MCV MCH MCHC RDW Plt Count Seg Neutrophils % Lymphocytes % Monocytes % Eosinophils % Basophils % Absolute Neutrophils Absolute Lymphocytes Absolute Monocytes Absolute Eosinophils Absolute Basophils Carbonic Acid HCO3/H2CO3 Ratio ABG pH ABG pCO2 ABG pO2 ABG HCO3 ABG O2 Saturation ABG Base Excess FiO2 Sodium 142.4 Potassium 4.2 Chloride 99 Carbon Dioxide 32 H Anion Gap 11 BUN 22 H Creatinine 0.78 Est GFR ( Amer) > 60 Est GFR (Non-Af Amer) > 60 Glucose 187 H Lactic Acid 1.3 Calcium 8.7 Total Bilirubin AST ALT Alkaline Phosphatase Total Protein Albumin TSH Free T4 Free T3 pg/mL Urine Color YELLOW Urine Appearance CLEAR Urine pH 5.0 Ur Specific [place] 1.015 Urine Protein NEGATIVE Urine Glucose (UA) NEGATIVE Urine Ketones NEGATIVE Urine Blood NEGATIVE Urine Nitrite NEGATIVE Ur Leukocyte Esterase NEGATIVE Urine WBC (Auto) 0 Urine RBC (Auto) 0 10/26/18 10/26/18 10/26/18 04:00 04:00 04:00 WBC 19.7 H RBC 3.33 L Hgb 9.4 L Hct 29.0 L MCV 87 MCH 28.2 MCHC 32.4 RDW 13.9 Plt Count 212 Seg Neutrophils % Not Reportable Lymphocytes % Not Reportable Monocytes % Not Reportable Eosinophils % Not Reportable Basophils % Not Reportable Absolute Neutrophils Not Reportable Absolute Lymphocytes Not Reportable Absolute Monocytes Not Reportable Absolute Eosinophils Not Reportable Absolute Basophils Not Reportable Carbonic Acid HCO3/H2CO3 Ratio ABG pH ABG pCO2 ABG pO2 ABG HCO3 ABG O2 Saturation ABG Base Excess FiO2 Sodium Potassium Chloride Carbon Dioxide Anion Gap BUN Creatinine Est GFR ( Amer) Est GFR (Non-Af Amer) Glucose Lactic Acid 2.0 Calcium Total Bilirubin AST ALT Alkaline Phosphatase Total Protein Albumin TSH 1.30 Free T4 Free T3 pg/mL Urine Color Urine Appearance Urine pH Ur Specific [place] Urine Protein Urine Glucose (UA) Urine Ketones Urine Blood Urine Nitrite Ur Leukocyte Esterase Urine WBC (Auto) Urine RBC (Auto) 10/26/18 10/26/18 05:44 09:10 WBC RBC Hgb Hct MCV MCH MCHC RDW Plt Count Seg Neutrophils % Lymphocytes % Monocytes % Eosinophils % Basophils % Absolute Neutrophils Absolute Lymphocytes Absolute Monocytes Absolute Eosinophils Absolute Basophils Carbonic Acid 1.51 H HCO3/H2CO3 Ratio 20:1 ABG pH 7.40 ABG pCO2 50.1 H ABG pO2 60.3 L ABG HCO3 30.4 H ABG O2 Saturation 90.8 L ABG Base Excess 4.9 FiO2 6 L Sodium Potassium Chloride Carbon Dioxide Anion Gap BUN Creatinine Est GFR ( Amer) Est GFR (Non-Af Amer) Glucose Lactic Acid 1.6 Calcium Total Bilirubin AST ALT Alkaline Phosphatase Total Protein Albumin TSH Free T4 Free T3 pg/mL Urine Color Urine Appearance Urine pH Ur Specific [place] Urine Protein Urine Glucose (UA) Urine Ketones Urine Blood Urine Nitrite Ur Leukocyte Esterase Urine WBC (Auto) Urine RBC (Auto) 10/25/18 10/25/18 10/26/18 19:27 21:55 04:00 Creatine Kinase 46 CK-MB (CK-2) Troponin I Cancelled < 0.012 10/26/18 04:05 Creatine Kinase CK-MB (CK-2) 0.83 Troponin I 0.049 Impressions: Abdomen/Pelvis CTA 10/25/18 17:03 IMPRESSION: This exam is nondiagnostic for aorta is suggested dissection because no IVC could not be administered due to infiltration of the IV site. There is slight dilatation of the proximal aortic arch. Extensive consolidations involve both lungs. Additional findings described above. Chest/Abdomen CTA 10/25/18 17:03 IMPRESSION: This exam is nondiagnostic for aorta is suggested dissection because no IVC could not be administered due to infiltration of the IV site. There is slight dilatation of the proximal aortic arch. Extensive consolidations involve both lungs. Additional findings described above. Chest X-Ray 05/21/19 00:00 IMPRESSION: Developing bilateral perihilar airspace disease. Right IJ central line in place with no pneumothorax. Assessment & Plan - Diagnosis (1) Acute respiratory failure with hypoxia Is this a current diagnosis for this admission?: Yes Plan: Improved patient was initially on BiPAP but is currently being weaned down to nasal cannula (2) Anxiety Is this a current diagnosis for this admission?: Yes Plan: Low-dose Xanax (3) Aortic stenosis Qualifiers: Cardiac valve disease etiology: etiology unspecified Qualified Code(s): I35.0 - Nonrheumatic aortic (valve) stenosis Is this a current diagnosis for this admission?: Yes Plan: Doubt invasive intervention optimize medication (4) Aspiration pneumonia Qualifiers: Aspiration pneumonia type: unspecified Laterality: right Lung location: unspecified part of lung Qualified Code(s): J69.0 - Pneumonitis due to inhalation of food and vomit Is this a current diagnosis for this admission?: Yes Plan: Given her proclivity for aspiration and frequency of her recurrent pneumonias and subsequent skilled nursing related visits(for rehabilitation) it may be wilkinson to consider putting in a percutaneous gastric tube - Time Total Critical Time (Minutes): 55
[2018-10-26] MEDS: VANCOMYCIN HCL 500 MG in DEXTROSE 5%-WATER 100 ML IV SCH (16:36)
[2018-10-26 17:38] LABS: TROPONIN I 0.075 ng/mL
[2018-10-26] MEDS: CEFEPIME HCL 2 GM in DEXTROSE 5%-WATER 50 ML IV SCH (17:44)
[2018-10-26 17:53] LABS: CREATINE KINASE MB 0.86 ng/mL (<4.55)
[2018-10-26] MEDS ORDERED: CEFEPIME 2 GM/D5W RTU 2 GM/50 ML RTUPB IV SCH (18:00)
[2018-10-26] MEDS: FERROUS SULFATE 325 MG TABLET PO SCH (19:00)
[2018-10-26] MEDS ORDERED: INSULIN DETEMIR 12 UNIT SQ SCH (21:00)
[2018-10-26] MEDS: INSULIN GLARGINE,HUM.REC.ANLOG 1,000 UNIT/10 ML VIAL SUBCUT SCH (21:34)
[2018-10-26] MEDS: SIMVASTATIN 40 MG TABLET PO SCH (21:35)
[2018-10-26] MEDS: LOSARTAN POTASSIUM 50 MG TABLET PO SCH (21:35)
[2018-10-26] MEDS ORDERED: FLUTICASONE PROPION IH SCH (22:00)
[2018-10-26] MEDS ORDERED: (PENDING PHARMACY ID) (Telmisartan [Micardis 80 Mg Tablet] 80 MG) PO SCH (22:00)
[2018-10-26] MEDS ORDERED: SALMETEROL IH SCH (22:00)
[2018-10-26] MEDS ORDERED: LEVOFLOXACIN 500 MG/D5W RTU 500 MG/100 ML RTUPB IV SCH (22:00)
[2018-10-27] MEDS: ALPRAZOLAM 0.5 MG TABLET PO PRN ×2 (00:50→22:54)
[2018-10-27] MEDS: LEVALBUTEROL HCL NEB 1.25 MG/3 ML AMPUL NEB SCH ×3 (00:58→16:55)
[2018-10-27] MEDS: IPRATROPIUM BROMIDE 0.02% NEB 0.5 MG/2.5 ML AMPUL NEB SCH ×3 (00:58→16:55)
[2018-10-27] MEDS ORDERED: LACTULOSE SYRUP 20 GM/30 ML UDCUP PO ONE (01:10)
[2018-10-27] MEDS: VANCOMYCIN HCL 500 MG in DEXTROSE 5%-WATER 100 ML IV SCH ×2 (04:12→16:40)
[2018-10-27 04:32] LABS: ABSOLUTE EOSINOPHILS # (AUTO) 0.1 10^3/uL (0.0-0.6); ABSOLUTE LYMPHOCYTES (AUTO) 1.1 10^3/uL (0.5-4.7); ABSOLUTE MONOCYTES (AUTO) 0.8 10^3/uL (0.1-1.4); ABSOLUTE NEUT (AUTO) 8.1 10^3/uL (1.7-8.2); BASOPHILS % (AUTO) 0.4 % (0-2); EOSINOPHILS % (AUTO) 0.9 % (0-6); HEMOGLOBIN 8.3 g/dL (12.0-15.5); LYMPHOCYTES % (AUTO) 10.6 % (13-45); MEAN CORPUSCULAR HEMOGLOBIN 29.1 pg (27.0-33.4); MEAN CORPUSCULAR HGB CONC 33.1 g/dL (32.0-36.0); MEAN CORPUSCULAR VOLUME 88 fl (80-97); MONOCYTES % (AUTO) 7.4 % (3-13); PLATELET COUNT 175 10^3/uL (150-450); RED BLOOD COUNT 2.85 10^6/uL (3.72-5.28); RED CELL DISTRIBUTION WIDTH 13.7 % (11.5-14.0); SEGMENTED NEUTROPHILS % (AUTO) 80.7 % (42-78); TOTAL CELLS COUNTED % (AUTO) 100 %; WHITE BLOOD COUNT 10.1 10^3/uL (4.0-10.5)
[2018-10-27 04:38] LABS: ARTERIAL BLOOD BASE EXCESS 5.8 mmol/L; ARTERIAL BLOOD H2CO3 1.62 mmol/L (1.05-1.35); ARTERIAL BLOOD HCO3 31.9 mmol/L (20-24); ARTERIAL BLOOD O2 SATURATION 96.7 % (94-98); ARTERIAL BLOOD PCO2 53.9 mmHg (35-45); ARTERIAL BLOOD PH 7.39 (7.35-7.45); ARTERIAL BLOOD PO2 90.9 mmHg (80-100); ARTERIAL BLOOD TOTAL CO2 33.6 mmol/L (21-25)
[2018-10-27 04:39] LABS: ARTERIAL BLOOD FIO2 6L
[2018-10-27 04:55] LABS: ANION GAP 7 (5-19); BLOOD UREA NITROGEN 18 mg/dL (7-20); CALCIUM 8.4 mg/dL (8.4-10.2); CARBON DIOXIDE 33 mmol/L (22-30); CHLORIDE 100 mmol/L (98-107); GLUCOSE 150 mg/dL (75-110); POTASSIUM 3.9 mmol/L (3.6-5.0); SODIUM 140.2 mmol/L (137-145)
[2018-10-27] MEDS: CEFEPIME HCL 2 GM in DEXTROSE 5%-WATER 50 ML IV SCH ×2 (06:37→18:38)
[2018-10-27] MEDS: HEPARIN SOD (PORCINE) 5,000 UNIT/ML 1 ML SYRINGE SUBCUT SCH ×3 (06:38→22:53)
[2018-10-27] MEDS: LEVOTHYROXINE SODIUM 0.075 MG TABLET PO SCH (06:38)
[2018-10-27] MEDS: RINGERS SOLUTION,LACTATED 1,000 ML IV PRN ×2 (08:10→16:42)
[2018-10-27] MEDS: LACTULOSE SYRUP 20 GM/30 ML UDCUP PO SCH ×2 (09:57→22:09)
[2018-10-27] MEDS: FUROSEMIDE 80 MG TABLET PO SCH (09:58)
[2018-10-27] MEDS: FERROUS SULFATE 325 MG TABLET PO SCH ×2 (09:58→18:38)
[2018-10-27] MEDS ORDERED: ESTROPIPATE 1.5 MG PO SCH (10:00)
[2018-10-27] MEDS: NA PHOS,M-B/NA PHOS,DI-BA (ADULT) 133 ML ENEMA PR SCH ×3 (10:01→22:09)
[2018-10-27] MEDS: PANTOPRAZOLE SODIUM 40 MG TABLET.DR PO SCH (10:02)
[2018-10-27] MEDS: CLOPIDOGREL BISULFATE 75 MG TABLET PO SCH (10:02)
--- NOTE | 2018-10-27 10:30 | EKG REPORT ---
SEVERITY:- ABNORMAL ECG - SINUS RHYTHM FIRST DEGREE AV BLOCK LEFT BUNDLE BRANCH BLOCK : Confirmed by: Francisco J Ferrer 27-Oct-2018 10:29:22
[2018-10-27] MEDS: FAMOTIDINE INJ/PF 20 MG/2 ML SDV IV SCH ×2 (10:52→22:53)
--- NOTE | 2018-10-27 12:13 | PDOC PROGRESS REPORT ---
Subjective Progress Note for:: 10/27/18 Subjective:: Patient seen resting in bed comfortably. She is awake alert and oriented. She is afebrile, no nausea or vomiting. I reviewed her lab and her WBC is trending down from 19.7-10.1. Reason For Visit: PNEUMONIA Physical Exam Vital Signs: Temp Pulse Resp BP Pulse Ox 100.4 F 99 26 H 136/79 H 100 10/27/18 07:15 10/27/18 08:04 10/27/18 08:04 10/27/18 07:15 10/27/18 08:04 Intake & Output 10/26/18 10/27/18 10/28/18 06:59 06:59 06:59 Intake Total 6000 50 Output Total 305 1145 Balance -305 4855 50 Weight 80.4 kg 84.8 kg Neck exam: ABSENT: carotid bruit, JVD, lymphadenopathy, thyromegaly Respiratory exam: PRESENT: crackles - Bilateral, decreased breath sounds GI/Abdominal exam: PRESENT: normal bowel sounds, soft. ABSENT: distended, guarding, mass, organolmegaly, rebound, tenderness Neurological exam: PRESENT: alert, awake Results Laboratory Results: 10/27/18 04:20 10/27/18 04:20 10/27/18 10/27/18 10/27/18 04:20 04:20 04:20 WBC 10.1 RBC 2.85 L Hgb 8.3 L Hct 25.0 L MCV 88 MCH 29.1 MCHC 33.1 RDW 13.7 Plt Count 175 Seg Neutrophils % 80.7 H Lymphocytes % 10.6 L Monocytes % 7.4 Eosinophils % 0.9 Basophils % 0.4 Absolute Neutrophils 8.1 Absolute Lymphocytes 1.1 Absolute Monocytes 0.8 Absolute Eosinophils 0.1 Absolute Basophils 0.0 Carbonic Acid 1.62 H HCO3/H2CO3 Ratio 19:1 ABG pH 7.39 ABG pCO2 53.9 H ABG pO2 90.9 ABG HCO3 31.9 H ABG O2 Saturation 96.7 ABG Base Excess 5.8 FiO2 6L Sodium 140.2 Potassium 3.9 Chloride 100 Carbon Dioxide 33 H Anion Gap 7 BUN 18 Creatinine 0.71 Est GFR ( Amer) > 60 Est GFR (Non-Af Amer) > 60 Glucose 150 H Calcium 8.4 Magnesium 1.7 10/25/18 10/25/18 10/26/18 19:27 21:55 04:00 Creatine Kinase 46 CK-MB (CK-2) Troponin I Cancelled < 0.012 10/26/18 10/26/18 10/26/18 04:05 10:40 10:40 Creatine Kinase 48 CK-MB (CK-2) 0.83 0.86 Troponin I 0.049 0.061 10/26/18 10/26/18 16:35 16:35 Creatine Kinase 47 CK-MB (CK-2) 0.86 Troponin I 0.075 Impressions: Abdomen/Pelvis CTA 10/25/18 17:03 IMPRESSION: This exam is nondiagnostic for aorta is suggested dissection because no IVC could not be administered due to infiltration of the IV site. There is slight dilatation of the proximal aortic arch. Extensive consolidations involve both lungs. Additional findings described above. Chest/Abdomen CTA 10/25/18 17:03 IMPRESSION: This exam is nondiagnostic for aorta is suggested dissection because no IVC could not be administered due to infiltration of the IV site. There is slight dilatation of the proximal aortic arch. Extensive consolidations involve both lungs. Additional findings described above. Chest X-Ray 10/26/18 00:00 IMPRESSION: Developing bilateral perihilar airspace disease. Right IJ central line in place with no pneumothorax. Assessment and Plan - Diagnosis (1) Bilateral pneumonia Is this a current diagnosis for this admission?: Yes Plan: Continue current regimen (2) Acute respiratory failure with hypoxia Is this a current diagnosis for this admission?: Yes Plan: Continue supplemental oxygen. (3) Nausea and vomiting Qualifiers: Vomiting Intractability: non-intractable Is this a current diagnosis for this admission?: Yes Plan: Has been subsiding after she was administered with Reglan (4) Systemic inflammatory response syndrome Is this a current diagnosis for this admission?: Yes Plan: Continue antibiotics and close monitoring. (5) Chest pain Is this a current diagnosis for this admission?: Yes Plan: Cardiac enzymes are negative and pain is reproducible. (6) History of atrial fibrillation Is this a current diagnosis for this admission?: Yes Plan: Rate controlled (7) COPD (chronic obstructive pulmonary disease) Qualifiers: Emphysema type: unspecified Is this a current diagnosis for this admission?: Yes Plan: Continue current regimen. (8) Coronary artery disease Qualifiers: Coronary Disease-Associated Artery/Lesion type: [place] artery Is this a current diagnosis for this admission?: Yes Plan: Stable continue current management. (9) Hypertension Qualifiers: Hypertension type: essential hypertension Qualified Code(s): I10 - Essential (primary) hypertension Is this a current diagnosis for this admission?: Yes Plan: Continue home medications. (10) Hyperlipidemia Qualifiers: Hyperlipidemia type: unspecified Qualified Code(s): E78.5 - Hyperlipidemia, unspecified Is this a current diagnosis for this admission?: Yes Plan: Continue home medications.
--- NOTE | 2018-10-27 15:04 | PDOC PROGRESS REPORT ---
Subjective Progress Note for:: 10/27/18 Subjective:: Patient is awake and alert requesting BiPAP to assist with breathing Reason For Visit: PNEUMONIA Physical Exam Vital Signs: Temp Pulse Resp BP Pulse Ox 100.0 F 103 H 25 H 167/69 H 95 10/27/18 12:00 10/27/18 12:00 10/27/18 12:00 10/27/18 12:00 10/27/18 12:00 Intake & Output 10/26/18 10/27/18 10/28/18 06:59 06:59 06:59 Intake Total 6000 50 Output Total 305 1145 Balance -305 4855 50 Weight 80.4 kg 84.8 kg General appearance: PRESENT: no acute distress, well-developed, well-nourished Head exam: PRESENT: atraumatic, normocephalic Eye exam: PRESENT: conjunctiva pink, EOMI, PERRLA. ABSENT: scleral icterus Ear exam: PRESENT: normal external ear exam Mouth exam: PRESENT: moist, tongue midline Neck exam: ABSENT: carotid bruit, JVD, lymphadenopathy, thyromegaly Respiratory exam: PRESENT: decreased breath sounds, prolonged expiratory phas, rhonchi Cardiovascular exam: PRESENT: irregular rhythm Pulses: PRESENT: normal dorsalis pedis pul Vascular exam: PRESENT: normal capillary refill GI/Abdominal exam: PRESENT: normal bowel sounds, soft. ABSENT: distended, guarding, mass, organolmegaly, rebound, tenderness Rectal exam: PRESENT: deferred Extremities exam: PRESENT: full ROM. ABSENT: calf tenderness, clubbing, pedal edema Neurological exam: PRESENT: alert, awake, oriented to person, oriented to place, oriented to time, oriented to situation, CN II-XII grossly intact. ABSENT: motor sensory deficit Psychiatric exam: PRESENT: normal mood Skin exam: PRESENT: dry, intact, warm. ABSENT: cyanosis, rash Results Laboratory Results: 10/27/18 04:20 10/27/18 04:20 10/27/18 10/27/18 10/27/18 04:20 04:20 04:20 WBC 10.1 RBC 2.85 L Hgb 8.3 L Hct 25.0 L MCV 88 MCH 29.1 MCHC 33.1 RDW 13.7 Plt Count 175 Seg Neutrophils % 80.7 H Lymphocytes % 10.6 L Monocytes % 7.4 Eosinophils % 0.9 Basophils % 0.4 Absolute Neutrophils 8.1 Absolute Lymphocytes 1.1 Absolute Monocytes 0.8 Absolute Eosinophils 0.1 Absolute Basophils 0.0 Carbonic Acid 1.62 H HCO3/H2CO3 Ratio 19:1 ABG pH 7.39 ABG pCO2 53.9 H ABG pO2 90.9 ABG HCO3 31.9 H ABG O2 Saturation 96.7 ABG Base Excess 5.8 FiO2 6L Sodium 140.2 Potassium 3.9 Chloride 100 Carbon Dioxide 33 H Anion Gap 7 BUN 18 Creatinine 0.71 Est GFR ( Amer) > 60 Est GFR (Non-Af Amer) > 60 Glucose 150 H Calcium 8.4 Magnesium 1.7 10/25/18 10/25/18 10/26/18 19:27 21:55 04:00 Creatine Kinase 46 CK-MB (CK-2) Troponin I Cancelled < 0.012 10/26/18 10/26/18 10/26/18 04:05 10:40 10:40 Creatine Kinase 48 CK-MB (CK-2) 0.83 0.86 Troponin I 0.049 0.061 10/26/18 10/26/18 16:35 16:35 Creatine Kinase 47 CK-MB (CK-2) 0.86 Troponin I 0.075 Impressions: Abdomen/Pelvis CTA 10/25/18 17:03 IMPRESSION: This exam is nondiagnostic for aorta is suggested dissection because no IVC could not be administered due to infiltration of the IV site. There is slight dilatation of the proximal aortic arch. Extensive consolidations involve both lungs. Additional findings described above. Chest/Abdomen CTA 10/25/18 17:03 IMPRESSION: This exam is nondiagnostic for aorta is suggested dissection because no IVC could not be administered due to infiltration of the IV site. There is slight dilatation of the proximal aortic arch. Extensive consolidations involve both lungs. Additional findings described above. Chest X-Ray 10/26/18 00:00 IMPRESSION: Developing bilateral perihilar airspace disease. Right IJ central line in place with no pneumothorax. Assessment & Plan - Diagnosis (1) Acute respiratory failure with hypoxia Is this a current diagnosis for this admission?: Yes Plan: We will begin patient on BiPAP (2) Anxiety Is this a current diagnosis for this admission?: Yes Plan: Low Dose Xanax (3) Aspiration pneumonia Qualifiers: Aspiration pneumonia type: unspecified Laterality: right Lung location: unspecified part of lung Qualified Code(s): J69.0 - Pneumonitis due to inhalation of food and vomit Is this a current diagnosis for this admission?: Yes Plan: Given her proclivity for aspiration and frequency of her current pneumonias and subsequent custodial related visits for rehab and it may be wilkinson to consider putting in percutaneous gastric tube Inpatient Scribe Statement - . Entered by Sharyn Tate, acting as scribe for .
[2018-10-27] MEDS: FLUTICASONE NASAL SPRAY 50 MCG/SPRY 120 SPRAY/16 GM NASL SCH ×2 (16:36→23:12)
[2018-10-27] MEDS ORDERED: INSULIN GLARGINE,HUM.REC.ANLOG 1,000 UNIT/10 ML VIAL (PYX) SUBCUT ONE (22:48)
[2018-10-27] MEDS: INSULIN GLARGINE,HUM.REC.ANLOG 1,000 UNIT/10 ML VIAL SUBCUT SCH (22:53)
[2018-10-27] MEDS: LOSARTAN POTASSIUM 50 MG TABLET PO SCH (22:53)
[2018-10-27] MEDS: SIMVASTATIN 40 MG TABLET PO SCH (22:54)
[2018-10-28] MEDS: IPRATROPIUM BROMIDE 0.02% NEB 0.5 MG/2.5 ML AMPUL NEB SCH ×3 (00:38→16:25)
[2018-10-28] MEDS: LEVALBUTEROL HCL NEB 1.25 MG/3 ML AMPUL NEB SCH ×3 (00:38→16:25)
[2018-10-28 04:05] LABS: ABSOLUTE BASOPHILS # (AUTO) 0.1 10^3/uL (0.0-0.2); ABSOLUTE EOSINOPHILS # (AUTO) 0.1 10^3/uL (0.0-0.6); ABSOLUTE LYMPHOCYTES (AUTO) 1.4 10^3/uL (0.5-4.7); ABSOLUTE MONOCYTES (AUTO) 0.7 10^3/uL (0.1-1.4); ABSOLUTE NEUT (AUTO) 8.4 10^3/uL (1.7-8.2); BASOPHILS % (AUTO) 0.8 % (0-2); EOSINOPHILS % (AUTO) 0.6 % (0-6); HEMATOCRIT 24.4 % (36.0-47.0); HEMOGLOBIN 8.1 g/dL (12.0-15.5); LYMPHOCYTES % (AUTO) 12.9 % (13-45); MEAN CORPUSCULAR HEMOGLOBIN 28.9 pg (27.0-33.4); MEAN CORPUSCULAR HGB CONC 33.2 g/dL (32.0-36.0); MEAN CORPUSCULAR VOLUME 87 fl (80-97); MONOCYTES % (AUTO) 6.6 % (3-13); PLATELET COUNT 182 10^3/uL (150-450); RED CELL DISTRIBUTION WIDTH 13.6 % (11.5-14.0); SEGMENTED NEUTROPHILS % (AUTO) 79.1 % (42-78); TOTAL CELLS COUNTED % (AUTO) 100 %; WHITE BLOOD COUNT 10.6 10^3/uL (4.0-10.5)
[2018-10-28 04:24] LABS: ANION GAP 8 (5-19); BLOOD UREA NITROGEN 17 mg/dL (7-20); CARBON DIOXIDE 35 mmol/L (22-30); CHLORIDE 98 mmol/L (98-107); GLUCOSE 132 mg/dL (75-110); POTASSIUM 3.7 mmol/L (3.6-5.0); SODIUM 140.5 mmol/L (137-145)
[2018-10-28] MEDS: VANCOMYCIN HCL 500 MG in DEXTROSE 5%-WATER 100 ML IV SCH ×2 (04:33→16:20)
[2018-10-28] MEDS: RINGERS SOLUTION,LACTATED 1,000 ML IV PRN (04:34)
[2018-10-28 04:35] LABS: VANCOMYCIN,TROUGH 12.8 ug/mL (5.0-20.0)
[2018-10-28] MEDS: CEFEPIME HCL 2 GM in DEXTROSE 5%-WATER 50 ML IV SCH ×2 (05:55→17:25)
[2018-10-28] MEDS: HEPARIN SOD (PORCINE) 5,000 UNIT/ML 1 ML SYRINGE SUBCUT SCH ×3 (05:55→21:48)
[2018-10-28] MEDS: LEVOTHYROXINE SODIUM 0.075 MG TABLET PO SCH (05:55)
[2018-10-28 06:54] LABS: ARTERIAL BLOOD BASE EXCESS 7.3 mmol/L; ARTERIAL BLOOD FIO2 35%; ARTERIAL BLOOD H2CO3 1.52 mmol/L (1.05-1.35); ARTERIAL BLOOD HCO3 32.7 mmol/L (20-24); ARTERIAL BLOOD O2 SATURATION 98.4 % (94-98); ARTERIAL BLOOD PCO2 50.6 mmHg (35-45); ARTERIAL BLOOD PH 7.43 (7.35-7.45); ARTERIAL BLOOD TOTAL CO2 34.2 mmol/L (21-25)
--- NOTE | 2018-10-28 09:22 | RADIOLOGY REPORT (SQ) ---
EXAM DESCRIPTION: CHEST SINGLE VIEW COMPLETED DATE/TIME: 10/28/2018 8:25 am REASON FOR STUDY: pna/resp failure COMPARISON: 10/26/2018 EXAM PARAMETERS: NUMBER OF VIEWS: One view. TECHNIQUE: Single frontal radiographic view of the chest acquired. RADIATION DOSE: NA LIMITATIONS: None. FINDINGS: LUNGS AND PLEURA: Significantly improved aeration of the lungs. Residual bibasilar densit y and effusion. MEDIASTINUM AND HILAR STRUCTURES: No masses. Contour normal. HEART AND VASCULAR STRUCTURES: Heart normal in size. Normal vasculature. BONES: No acute findings. HARDWARE: Right IJ central line unchanged in position. OTHER: No other significant finding. IMPRESSION: Significant improvement with residual bibasilar changes and effusion. TECHNICAL DOCUMENTATION: JOB ID: [id number] [employer]- All Rights Reserved Reading location - IP/workstation name: [email or web address]
[2018-10-28] MEDS: LACTULOSE SYRUP 20 GM/30 ML UDCUP PO SCH ×2 (10:29→21:38)
[2018-10-28] MEDS: NA PHOS,M-B/NA PHOS,DI-BA (ADULT) 133 ML ENEMA PR SCH ×2 (10:29→21:38)
[2018-10-28] MEDS: PANTOPRAZOLE SODIUM 40 MG TABLET.DR PO SCH (10:34)
[2018-10-28] MEDS: FERROUS SULFATE 325 MG TABLET PO SCH ×3 (10:34→17:23)
[2018-10-28] MEDS: FUROSEMIDE 80 MG TABLET PO SCH (10:34)
[2018-10-28] MEDS: FAMOTIDINE INJ/PF 20 MG/2 ML SDV IV SCH ×2 (10:35→21:48)
[2018-10-28] MEDS: CLOPIDOGREL BISULFATE 75 MG TABLET PO SCH (10:35)
[2018-10-28] MEDS: FLUTICASONE NASAL SPRAY 50 MCG/SPRY 120 SPRAY/16 GM NASL SCH ×3 (10:43→21:48)
--- NOTE | 2018-10-28 17:57 | PDOC PROGRESS REPORT ---
Subjective Progress Note for:: 10/28/18 Subjective:: The patient is an 83-year-old female with past medical history of atrial fibrillation, CHF, CAD, LA, hyperlipidemia, hypertension, COPD, chronic respiratory failure, DM 2, hypothyroidism, arthritis , depression and anxiety who was admitted 10/25/2018 for acute respiratory failure with hypoxia secondary to bilateral pneumonia. The patient was seen on afternoon rounds. She has been downgraded from the ICU. At the time of my visit, she was sleeping soundly. She did arouse slightly when I set her name but did not fully wake. She appeared to be resting comfortably sitting semi-Fowlers with BiPAP. Reason For Visit: PNEUMONIA Physical Exam Vital Signs: Temp Pulse Resp BP Pulse Ox 97.6 F 80 24 H 150/73 H 98 10/28/18 08:00 10/28/18 11:17 10/28/18 11:17 10/28/18 11:17 10/28/18 12:50 Intake & Output 10/27/18 10/28/18 10/29/18 06:59 06:59 06:59 Intake Total 6000 2350 Output Total 1145 800 Balance 4855 1550 Weight 84.8 kg 67.4 kg General appearance: PRESENT: no acute distress, well-developed, well-nourished Head exam: PRESENT: atraumatic, normocephalic Ear exam: PRESENT: normal external ear exam Mouth exam: PRESENT: moist, tongue midline Neck exam: ABSENT: carotid bruit, JVD, lymphadenopathy, thyromegaly Respiratory exam: PRESENT: decreased breath sounds, prolonged expiratory phas, rhonchi, symmetrical, unlabored, other - BiPAP. ABSENT: rales, wheezes Cardiovascular exam: PRESENT: irregular rhythm, +S1, +S2. ABSENT: diastolic murmur, rubs, systolic murmur Pulses: PRESENT: normal dorsalis pedis pul Vascular exam: PRESENT: normal capillary refill GI/Abdominal exam: PRESENT: normal bowel sounds, soft. ABSENT: distended, guarding, mass, organolmegaly, rebound, tenderness Rectal exam: PRESENT: deferred Extremities exam: ABSENT: calf tenderness, clubbing, pedal edema Neurological exam: PRESENT: CN II-XII grossly intact, other - Sleeping soundly. ABSENT: motor sensory deficit Skin exam: PRESENT: dry, intact, warm. ABSENT: cyanosis, rash Results Laboratory Results: 10/28/18 03:45 10/28/18 03:45 10/28/18 10/28/18 10/28/18 03:45 03:45 06:29 WBC 10.6 H RBC 2.80 L Hgb 8.1 L Hct 24.4 L MCV 87 MCH 28.9 MCHC 33.2 RDW 13.6 Plt Count 182 Seg Neutrophils % 79.1 H Lymphocytes % 12.9 L Monocytes % 6.6 Eosinophils % 0.6 Basophils % 0.8 Absolute Neutrophils 8.4 H Absolute Lymphocytes 1.4 Absolute Monocytes 0.7 Absolute Eosinophils 0.1 Absolute Basophils 0.1 Carbonic Acid 1.52 H HCO3/H2CO3 Ratio 21:1 ABG pH 7.43 ABG pCO2 50.6 H ABG pO2 121.0 H ABG HCO3 32.7 H ABG O2 Saturation 98.4 H ABG Base Excess 7.3 FiO2 35% Sodium 140.5 Potassium 3.7 Chloride 98 Carbon Dioxide 35 H Anion Gap 8 BUN 17 Creatinine 0.68 Est GFR ( Amer) > 60 Est GFR (Non-Af Amer) > 60 Glucose 132 H Calcium 9.0 Magnesium 1.7 10/25/18 22:21 Turner Catheter Urine Culture - Final NO GROWTH 2 DAYS 10/25/18 10/25/18 10/26/18 19:27 21:55 04:00 Creatine Kinase 46 CK-MB (CK-2) Troponin I Cancelled < 0.012 10/26/18 10/26/18 10/26/18 04:05 10:40 10:40 Creatine Kinase 48 CK-MB (CK-2) 0.83 0.86 Troponin I 0.049 0.061 10/26/18 10/26/18 16:35 16:35 Creatine Kinase 47 CK-MB (CK-2) 0.86 Troponin I 0.075 Impressions: Abdomen/Pelvis CTA 10/25/18 17:03 IMPRESSION: This exam is nondiagnostic for aorta is suggested dissection because no IVC could not be administered due to infiltration of the IV site. There is slight dilatation of the proximal aortic arch. Extensive consolidations involve both lungs. Additional findings described above. Chest/Abdomen CTA 10/25/18 17:03 IMPRESSION: This exam is nondiagnostic for aorta is suggested dissection because no IVC could not be administered due to infiltration of the IV site. There is slight dilatation of the proximal aortic arch. Extensive consolidations involve both lungs. Additional findings described above. Chest X-Ray 10/28/18 06:00 IMPRESSION: Significant improvement with residual bibasilar changes and effusion. Assessment and Plan - Diagnosis (1) Acute respiratory failure with hypoxia Is this a current diagnosis for this admission?: Yes Plan: Secondary to bilateral pneumonia in the setting of COPD. Improved; patient has been downgraded to the telemetry floor from ICU. Continue supplemental oxygen and BiPAP support as needed to maintain saturations >89% Continue scheduled and as needed nebulizer treatments. Pulmonology is consulted; appreciate Dr. Barajas's assistance. (2) Bilateral pneumonia Qualifiers: Pneumonia type: due to unspecified organism Lung location: lower lobe of lung Qualified Code(s): J18.1 - Lobar pneumonia, unspecified organism Is this a current diagnosis for this admission?: Yes Plan: Improved; chest x-ray this morning demonstrated improved aeration. Supplemental oxygen, BiPAP, and nebulizer treatments. Continue IV vancomycin and cefepime. Blood cultures show gram-positive cocci (/); will adjust antibiotics as cultures result. Sputum culture has not been obtained. Mucinex twice daily. Incentive spirometer and flutter valve when off BiPAP. Pulmonology is consulted; appreciate Dr. Barajas's assistance. (3) COPD (chronic obstructive pulmonary disease) Qualifiers: Emphysema type: unspecified Is this a current diagnosis for this admission?: Yes Plan: Without exacerbation at this time. No indications for steroids. Management as above. (4) Chest pain Is this a current diagnosis for this admission?: Yes Plan: Patient's discomfort was reproducible; likely secondary to increased work of breathing. Troponins are trending up; likely demand ischemia related to acute respiratory failure with hypoxia. We will continue to monitor on continuous cardiac telemetry. Repeat troponin in a.m. Continue home dose Plavix. Continue home dose atorvastatin. SL nitro tabs as needed chest pain. (5) Coronary artery disease Qualifiers: Coronary Disease-Associated Artery/Lesion type: [place] artery Is this a current diagnosis for this admission?: Yes Plan: Stable continue current management. (6) History of atrial fibrillation Is this a current diagnosis for this admission?: Yes Plan: Rate controlled; continue home medication regiment. (7) Hyperlipidemia Qualifiers: Hyperlipidemia type: unspecified Qualified Code(s): E78.5 - Hyperlipidemia, unspecified Is this a current diagnosis for this admission?: Yes Plan: Continue home medications. (8) Hypertension Qualifiers: Hypertension type: essential hypertension Qualified Code(s): I10 - Es sential (primary) hypertension Is this a current diagnosis for this admission?: Yes Plan: Blood pressures are acceptable for age; 150/73 today. Continue home medications; monitor for continued hypertension requiring adjustments. (9) Nausea and vomiting Qualifiers: Vomiting Intractability: non-intractable Is this a current diagnosis for this admission?: Yes Plan: Resolved. (10) SIRS (systemic inflammatory response syndrome) Is this a current diagnosis for this admission?: Yes Plan: Evaluation management as above. - Time Time Spent with patient: 25-34 minutes Medications reviewed and adjusted accordingly: Yes
[2018-10-28] MEDS: SIMVASTATIN 40 MG TABLET PO SCH (21:48)
[2018-10-28] MEDS: GUAIFENESIN 600 MG TABLET.SA PO SCH (21:48)
[2018-10-28] MEDS: LOSARTAN POTASSIUM 50 MG TABLET PO SCH (21:48)
[2018-10-28] MEDS: INSULIN GLARGINE,HUM.REC.ANLOG 1,000 UNIT/10 ML VIAL SUBCUT SCH (22:40)
[2018-10-29] MEDS: IPRATROPIUM BROMIDE 0.02% NEB 0.5 MG/2.5 ML AMPUL NEB SCH ×3 (00:32→15:34)
[2018-10-29] MEDS: LEVALBUTEROL HCL NEB 1.25 MG/3 ML AMPUL NEB SCH ×3 (00:32→15:34)
[2018-10-29] MEDS: VANCOMYCIN HCL 500 MG in DEXTROSE 5%-WATER 100 ML IV SCH ×2 (03:18→16:14)
[2018-10-29] MEDS: OXYCODONE-ACETAMINOPHEN 5-325 MG TABLET PO PRN ×2 (03:41→19:33)
[2018-10-29] MEDS: CEFEPIME HCL 2 GM in DEXTROSE 5%-WATER 50 ML IV SCH ×2 (05:22→17:45)
[2018-10-29] MEDS: HEPARIN SOD (PORCINE) 5,000 UNIT/ML 1 ML SYRINGE SUBCUT SCH ×3 (05:23→21:15)
[2018-10-29] MEDS: LEVOTHYROXINE SODIUM 0.075 MG TABLET PO SCH (05:23)
[2018-10-29 06:04] LABS: ARTERIAL BLOOD BASE EXCESS 7.2 mmol/L; ARTERIAL BLOOD H2CO3 1.54 mmol/L (1.05-1.35); ARTERIAL BLOOD HCO3 32.6 mmol/L (20-24); ARTERIAL BLOOD O2 SATURATION 98.6 % (94-98); ARTERIAL BLOOD PCO2 51.2 mmHg (35-45); ARTERIAL BLOOD PH 7.42 (7.35-7.45); ARTERIAL BLOOD PO2 128.9 mmHg (80-100); ARTERIAL BLOOD TOTAL CO2 34.2 mmol/L (21-25)
[2018-10-29 06:07] LABS: ARTERIAL BLOOD FIO2 35%
[2018-10-29 06:14] LABS: HEMATOCRIT 25.8 % (36.0-47.0); HEMOGLOBIN 8.4 g/dL (12.0-15.5); MEAN CORPUSCULAR HEMOGLOBIN 28.1 pg (27.0-33.4); MEAN CORPUSCULAR HGB CONC 32.5 g/dL (32.0-36.0); MEAN CORPUSCULAR VOLUME 87 fl (80-97); PLATELET COUNT 214 10^3/uL (150-450); RED BLOOD COUNT 2.98 10^6/uL (3.72-5.28); RED CELL DISTRIBUTION WIDTH 13.7 % (11.5-14.0); WHITE BLOOD COUNT 8.8 10^3/uL (4.0-10.5)
[2018-10-29 06:34] LABS: ALANINE AMINOTRANSFERASE 28 U/L (9-52); ALBUMIN 2.9 g/dL (3.5-5.0); ALKALINE PHOSPHATASE 93 U/L (38-126); ANION GAP 9 (5-19); ASPARTATE AMINO TRANSFERASE 17 U/L (14-36); BILIRUBIN,DIRECT 0.2 mg/dL (0.0-0.4); BILIRUBIN,TOTAL 0.7 mg/dL (0.2-1.3); BLOOD UREA NITROGEN 20 mg/dL (7-20); CALCIUM 8.8 mg/dL (8.4-10.2); CARBON DIOXIDE 35 mmol/L (22-30); CHLORIDE 96 mmol/L (98-107); GLUCOSE 120 mg/dL (75-110); POTASSIUM 3.4 mmol/L (3.6-5.0); SODIUM 140.1 mmol/L (137-145)
[2018-10-29] MEDS: LACTULOSE SYRUP 20 GM/30 ML UDCUP PO SCH ×2 (11:02→21:16)
[2018-10-29] MEDS: NA PHOS,M-B/NA PHOS,DI-BA (ADULT) 133 ML ENEMA PR SCH ×2 (11:02→21:16)
[2018-10-29] MEDS: CLOPIDOGREL BISULFATE 75 MG TABLET PO SCH (11:05)
[2018-10-29] MEDS: PANTOPRAZOLE SODIUM 40 MG TABLET.DR PO SCH (11:05)
[2018-10-29] MEDS: GUAIFENESIN 600 MG TABLET.SA PO SCH ×2 (11:05→21:15)
[2018-10-29] MEDS: ALPRAZOLAM 0.5 MG TABLET PO PRN (11:05)
[2018-10-29] MEDS: FLUTICASONE NASAL SPRAY 50 MCG/SPRY 120 SPRAY/16 GM NASL SCH ×2 (11:06→21:15)
[2018-10-29] MEDS: FUROSEMIDE 80 MG TABLET PO SCH (11:06)
[2018-10-29] MEDS: FERROUS SULFATE 325 MG TABLET PO SCH ×2 (11:06→17:35)
[2018-10-29] MEDS: FAMOTIDINE INJ/PF 20 MG/2 ML SDV IV SCH ×2 (11:06→21:16)
--- NOTE | 2018-10-29 15:32 | PDOC PROGRESS REPORT ---
Subjective Progress Note for:: 10/29/18 Subjective:: The patient is an 83-year-old female with past medical history of atrial fibrillation, CHF, CAD, [place], hyperlipidemia, hypertension, COPD, chronic respiratory failure, DM 2, hypothyroidism, arthritis , depression and anxiety who was admitted 10/25/2018 for acute respiratory failure with hypoxia secondary to bilateral pneumonia. The patient was seen on morning rounds with her present. She was noted to be awake, alert, oriented x4; breathing comfortably on BiPAP. She reports that she is feeling better today; decreased dyspnea at rest, better tolerance off BiPAP for meals, and improved cough. She does report that she has a poor appetite and desires to stay on full liquid diet for now when offered to advance diet. Otherwise, she denies fever, chills, chest pain, palpitations, orthopnea, abdominal pain, nausea vomiting and diarrhea. They have no new questions or concerns at this time. No concerns per nursing Reason For Visit: PNEUMONIA Physical Exam Vital Signs: Temp Pulse Resp BP Pulse Ox 97.4 F 92 22 H 119/49 L 98 10/28/18 19:32 10/29/18 08:35 10/29/18 08:35 10/28/18 23:19 10/29/18 08:35 Intake & Output 10/28/18 10/29/18 10/30/18 06:59 06:59 06:59 Intake Total 2350 900 Output Total 800 3750 Balance 1550 -2850 Weight 67.4 kg General appearance: PRESENT: no acute distress, well-developed, well-nourished Head exam: PRESENT: atraumatic, normocephalic Eye exam: PRESENT: conjunctiva pink, EOMI, PERRLA. ABSENT: scleral icterus Ear exam: PRESENT: normal external ear exam Mouth exam: PRESENT: moist, tongue midline Neck exam: ABSENT: carotid bruit, JVD, lymphadenopathy, thyromegaly Respiratory exam: PRESENT: prolonged expiratory phas, rhonchi - L>R, symmetrical, unlabored, other - BiPAP. ABSENT: rales, wheezes Cardiovascular exam: PRESENT: irregular rhythm, +S1, +S2. ABSENT: diastolic murmur, rubs, systolic murmur Pulses: PRESENT: normal dorsalis pedis pul Vascular exam: PRESENT: normal capillary refill GI/Abdominal exam: PRESENT: normal bowel sounds, soft. ABSENT: distended, guarding, mass, organolmegaly, rebound, tenderness Rectal exam: PRESENT: deferred Extremities exam: PRESENT: full ROM. ABSENT: calf tenderness, clubbing, pedal edema Neurological exam: PRESENT: alert, awake, oriented to person, oriented to place, oriented to time, oriented to situation, CN II-XII grossly intact. ABSENT: motor sensory deficit Psychiatric exam: PRESENT: appropriate affect, normal mood. ABSENT: homicidal ideation, suicidal ideation Skin exam: PRESENT: dry, intact, warm. ABSENT: cyanosis, rash Results Laboratory Results: 10/29/18 05:30 10/29/18 05:30 10/29/18 10/29/18 10/29/18 05:30 05:30 05:40 WBC 8.8 RBC 2.98 L Hgb 8.4 L Hct 25.8 L MCV 87 MCH 28.1 MCHC 32.5 RDW 13.7 Plt Count 214 Carbonic Acid 1.54 H HCO3/H2CO3 Ratio 21:1 ABG pH 7.42 ABG pCO2 51.2 H ABG pO2 128.9 H ABG HCO3 32.6 H ABG O2 Saturation 98.6 H ABG Base Excess 7.2 FiO2 35% Sodium 140.1 Potassium 3.4 L Chloride 96 L Carbon Dioxide 35 H Anion Gap 9 BUN 20 Creatinine 0.83 Est GFR ( Amer) > 60 Est GFR (Non-Af Amer) > 60 Glucose 120 H Calcium 8.8 Total Bilirubin 0.7 AST 17 ALT 28 Alkaline Phosphatase 93 Total Protein 6.0 L Albumin 2.9 L 10/25/18 21:28 Blood Blood Culture - Final Staphylococcus Hominis 10/25/18 22:21 Turner Catheter Urine Culture - Final NO GROWTH 2 DAYS 10/25/18 10/25/18 10/26/18 19:27 21:55 04:00 Creatine Kinase 46 CK-MB (CK-2) Troponin I Cancelled < 0.012 10/26/18 10/26/18 10/26/18 04:05 10:40 10:40 Creatine Kinase 48 CK-MB (CK-2) 0.83 0.86 Troponin I 0.049 0.061 10/26/18 10/26/18 10/29/18 16:35 16:35 06:44 Creatine Kinase 47 CK-MB (CK-2) 0.86 Troponin I 0.075 0.039 Impressions: Abdomen/Pelvis CTA 10/25/18 17:03 IMPRESSION: This exam is nondiagnostic for aorta is suggested dissection because no IVC could not be administered due to infiltration of the IV site. There is slight dilatation of the proximal aortic arch. Extensive consolidations involve both lungs. Additional findings described above. Chest/Abdomen CTA 10/25/18 17:03 IMPRESSION: This exam is nondiagnostic for aorta is suggested dissection because no IVC could not be administered due to infiltration of the IV site. There is slight dilatation of the proximal aortic arch. Extensive consolidations involve both lungs. Additional findings described above. Chest X-Ray 10/28/18 06:00 IMPRESSION: Significant improvement with residual bibasilar changes and effusion. Assessment and Plan - Diagnosis (1) Acute respiratory failure with hypoxia Is this a current diagnosis for this admission?: Yes Plan: Secondary to bilateral pneumonia in the setting of COPD. Improved; patient has been downgraded to the telemetry floor from ICU, decreased respiratory rate today and improved patient comfort. Continue supplemental oxygen and BiPAP support as needed to maintain saturations >89%; have asked nursing to begin weaning attempts. Continue scheduled and as needed nebulizer treatments. Pulmonology is consulted; appreciate Dr. Barajas's assistance. (2) Bilateral pneumonia Qualifiers: Pneumonia type: due to unspecified organism Lung location: lower lobe of lung Qualified Code(s): J18.1 - Lobar pneumonia, unspecified organism Is this a current diagnosis for this admission?: Yes Plan: Improved; chest x-ray yesterday demonstrated improved aeration. Supplemental oxygen, BiPAP, and nebulizer treatments. Continue IV vancomycin and cefepime. Blood cultures is a contaminant (staph hominis 1/4 bottles). Sputum culture has not been obtained. Mucinex twice daily. Incentive spirometer and flutter valve when off BiPAP. Pulmonology is consulted; appreciate Dr. Barajas's assistance. (3) COPD (chronic obstructive pulmonary disease) Qualifiers: Emphysema type: unspecified Is this a current diagnosis for this admission?: Yes Plan: Without exacerbation at this time. No indications for steroids. Management as above. (4) Chest pain Is this a current diagnosis for this admission?: Yes Plan: Patient's discomfort was reproducible; likely secondary to increased work of breathing. Troponins 0.012-> 0.049-> 0.061-> 0.075-> 0.039; no longer following We will continue to monitor on continuous cardiac telemetry. Continue home dose Plavix. Continue home dose atorvastatin. SL nitro tabs as needed chest pain. (5) Coronary artery disease Qualifiers: Coronary Disease-Associated Artery/Lesion type: [place] artery Is this a current diagnosis for this admission?: Yes Plan: Stable continue current management. (6) History of atrial fibrillation Is this a current diagnosis for this admission?: Yes Plan: Rate controlled; continue home medication regiment. (7) Hyperlipidemia Qualifiers: Hyperlipidemia type: unspecified Qualified Code(s): E78.5 - Hyperlipidemia, unspecified Is this a current diagnosis for this admission?: Yes Plan: Continue home medications. (8) Hypertension Qualifiers: Hypertension type: essential hypertension Qualified Code(s): I10 - Esse ntial (primary) hypertension Is this a current diagnosis for this admission?: Yes Plan: Blood pressures are acceptable; 134/62 Continue home medications; monitor for continued hypertension requiring adjustments. (9) Nausea and vomiting Qualifiers: Vomiting Intractability: non-intractable Is this a current diagnosis for this admission?: Yes Plan: Resolved. (10) SIRS (systemic inflammatory response syndrome) Is this a current diagnosis for this admission?: Yes Plan: Evaluation management as above. - Time Time Spent with patient: 25-34 minutes Medications reviewed and adjusted accordingly: Yes Anticipated discharge: Home with Homehealth
[2018-10-29] MEDS ORDERED: ALPRAZOLAM 0.5 MG TABLET PO ONE (17:00)
[2018-10-29] MEDS: LOSARTAN POTASSIUM 50 MG TABLET PO SCH (21:14)
[2018-10-29] MEDS: SIMVASTATIN 40 MG TABLET PO SCH (21:15)
[2018-10-29] MEDS: INSULIN GLARGINE,HUM.REC.ANLOG 1,000 UNIT/10 ML VIAL SUBCUT SCH (21:16)
[2018-10-30] MEDS: ALPRAZOLAM 0.5 MG TABLET PO PRN ×2 (00:56→21:04)
[2018-10-30] MEDS: IPRATROPIUM BROMIDE 0.02% NEB 0.5 MG/2.5 ML AMPUL NEB SCH ×4 (01:37→23:50)
[2018-10-30] MEDS: LEVALBUTEROL HCL NEB 1.25 MG/3 ML AMPUL NEB SCH ×4 (01:37→23:50)
[2018-10-30] MEDS: VANCOMYCIN HCL 500 MG in DEXTROSE 5%-WATER 100 ML IV SCH (04:19)
[2018-10-30] MEDS: CEFEPIME HCL 2 GM in DEXTROSE 5%-WATER 50 ML IV SCH ×2 (05:16→17:29)
[2018-10-30] MEDS: HEPARIN SOD (PORCINE) 5,000 UNIT/ML 1 ML SYRINGE SUBCUT SCH ×3 (05:16→21:04)
[2018-10-30] MEDS: LEVOTHYROXINE SODIUM 0.075 MG TABLET PO SCH (05:16)
[2018-10-30 05:36] LABS: HEMATOCRIT 26.2 % (36.0-47.0); HEMOGLOBIN 8.7 g/dL (12.0-15.5); MEAN CORPUSCULAR HEMOGLOBIN 28.9 pg (27.0-33.4); MEAN CORPUSCULAR HGB CONC 33.4 g/dL (32.0-36.0); MEAN CORPUSCULAR VOLUME 87 fl (80-97); PLATELET COUNT 224 10^3/uL (150-450); RED BLOOD COUNT 3.03 10^6/uL (3.72-5.28); RED CELL DISTRIBUTION WIDTH 13.6 % (11.5-14.0); WHITE BLOOD COUNT 8.7 10^3/uL (4.0-10.5)
[2018-10-30 06:00] LABS: ANION GAP 10 (5-19); BLOOD UREA NITROGEN 18 mg/dL (7-20); CALCIUM 8.9 mg/dL (8.4-10.2); CARBON DIOXIDE 35 mmol/L (22-30); CHLORIDE 96 mmol/L (98-107); GLUCOSE 130 mg/dL (75-110); POTASSIUM 3.5 mmol/L (3.6-5.0); SODIUM 140.6 mmol/L (137-145)
[2018-10-30 06:22] LABS: ARTERIAL BLOOD BASE EXCESS 11.1 mmol/L; ARTERIAL BLOOD H2CO3 1.61 mmol/L (1.05-1.35); ARTERIAL BLOOD HCO3 36.4 mmol/L (20-24); ARTERIAL BLOOD O2 SATURATION 98.8 % (94-98); ARTERIAL BLOOD PCO2 53.6 mmHg (35-45); ARTERIAL BLOOD PH 7.45 (7.35-7.45); ARTERIAL BLOOD PO2 138.8 mmHg (80-100); ARTERIAL BLOOD TOTAL CO2 38.1 mmol/L (21-25)
[2018-10-30 06:23] LABS: ARTERIAL BLOOD FIO2 4 LPM
[2018-10-30] MEDS: NA PHOS,M-B/NA PHOS,DI-BA (ADULT) 133 ML ENEMA PR SCH ×2 (09:32→21:02)
[2018-10-30] MEDS: FERROUS SULFATE 325 MG TABLET PO SCH ×2 (09:32→17:28)
[2018-10-30] MEDS: LACTULOSE SYRUP 20 GM/30 ML UDCUP PO SCH ×2 (09:32→21:02)
[2018-10-30] MEDS: CLOPIDOGREL BISULFATE 75 MG TABLET PO SCH (10:57)
[2018-10-30] MEDS: FUROSEMIDE 80 MG TABLET PO SCH (10:57)
[2018-10-30] MEDS: PANTOPRAZOLE SODIUM 40 MG TABLET.DR PO SCH (10:57)
[2018-10-30] MEDS: GUAIFENESIN 600 MG TABLET.SA PO SCH ×2 (10:58→21:03)
[2018-10-30] MEDS: FLUTICASONE NASAL SPRAY 50 MCG/SPRY 120 SPRAY/16 GM NASL SCH ×2 (10:58→21:04)
[2018-10-30] MEDS: FAMOTIDINE INJ/PF 20 MG/2 ML SDV IV SCH ×2 (10:58→21:04)
--- NOTE | 2018-10-30 13:43 | PDOC PROGRESS REPORT ---
Subjective Progress Note for:: 10/30/18 Subjective:: The patient is an 83-year-old female with past medical history of atrial fibrillation, CHF, CAD, [place], hyperlipidemia, hypertension, COPD, chronic respiratory failure, DM 2, hypothyroidism, arthritis , depression and anxiety who was admitted 10/25/2018 for acute respiratory failure with hypoxia secondary to bilateral pneumonia. The patient was seen on morning rounds; no family present. She was sleeping soundly and did not wake with saying name and gentle shake. She is noted to be resting comfortably on BiPAP. No concerns per nursing; report patient has been able to tolerate several hours at a time on NC. Still on full liquid diet per patient choice. They do report that the patient had increased anxiety overnight and so is now tired from combination of not sleeping well and prn xanax. Reason For Visit: PNEUMONIA Physical Exam Vital Signs: Temp Pulse Resp BP Pulse Ox 98.0 F 78 24 H 145/56 H 97 10/29/18 23:41 10/30/18 08:18 10/30/18 11:55 10/29/18 23:41 10/30/18 11:55 Pulse Oximeter Continuous Start: 10/29/18 09:39 Freq: RTQ4 Status: Active Protocol: Document 10/30/18 11:55 BOR (Rec: 10/30/18 11:58 BOR [id number]) Pulse Oximetry Assessment Oxygen Saturation (92-100) 97 Oxygen Delivery Method Bi-pap Fraction of Inspired Oxygen (FIO2) 35 Equipment Usage Equipment in Use Continuous SpO2 Machine # 1 Intake & Output 10/29/18 10/30/18 10/31/18 06:59 06:59 06:59 Intake Total 900 1288 Output Total 7392 4015 Balance -0420 -986 Weight 104.7 kg General appearance: PRESENT: no acute distress, disheveled, obese, well- developed, well-nourished Head exam: PRESENT: atraumatic, normocephalic Eye exam: ABSENT: scleral icterus Ear exam: PRESENT: normal external ear exam Mouth exam: PRESENT: moist, tongue midline Neck exam: ABSENT: carotid bruit, JVD, lymphadenopathy, thyromegaly Respiratory exam: PRESENT: decreased breath sounds, prolonged expiratory phas, rhonchi, symmetrical, unlabored, other - currently on BiPAP. ABSENT: rales, wheezes Cardiovascular exam: PRESENT: irregular rhythm, +S1, +S2. ABSENT: diastolic murmur, rubs, systolic murmur Pulses: PRESENT: normal dorsalis pedis pul Vascular exam: PRESENT: normal capillary refill GI/Abdominal exam: PRESENT: normal bowel sounds, soft. ABSENT: distended, guarding, mass, organolmegaly, rebound, tenderness Rectal exam: PRESENT: deferred Extremities exam: PRESENT: full ROM. ABSENT: calf tenderness, clubbing, pedal edema Neurological exam: PRESENT: CN II-XII grossly intact, other - sleeping soundly. ABSENT: motor sensory deficit Skin exam: PRESENT: dry, intact, warm. ABSENT: cyanosis, rash Results Laboratory Results: 10/30/18 05:23 10/30/18 05:23 10/30/18 10/30/18 10/30/18 05:23 05:23 06:10 WBC 8.7 RBC 3.03 L Hgb 8.7 L Hct 26.2 L MCV 87 MCH 28.9 MCHC 33.4 RDW 13.6 Plt Count 224 Carbonic Acid 1.61 H HCO3/H2CO3 Ratio 22:1 ABG pH 7.45 ABG pCO2 53.6 H ABG pO2 138.8 H ABG HCO3 36.4 H ABG O2 Saturation 98.8 H ABG Base Excess 11.1 FiO2 4 LPM Sodium 140.6 Potassium 3.5 L Chloride 96 L Carbon Dioxide 35 H Anion Gap 10 BUN 18 Creatinine 0.70 Est GFR ( Amer) > 60 Est GFR (Non-Af Amer) > 60 Glucose 130 H Calcium 8.9 10/25/18 21:28 Blood Blood Culture - Final Staphylococcus Hominis 10/25/18 10/25/18 10/26/18 19:27 21:55 04:00 Creatine Kinase 46 CK-MB (CK-2) Troponin I Cancelled < 0.012 10/26/18 10/26/18 10/26/18 04:05 10:40 10:40 Creatine Kinase 48 CK-MB (CK-2) 0.83 0.86 Troponin I 0.049 0.061 10/26/18 10/26/18 10/29/18 16:35 16:35 06:44 Creatine Kinase 47 CK-MB (CK-2) 0.86 Troponin I 0.075 0.039 Impressions: Abdomen/Pelvis CTA 10/25/18 17:03 IMPRESSION: This exam is nondiagnostic for aorta is suggested dissection because no IVC could not be administered due to infiltration of the IV site. There is slight dilatation of the proximal aortic arch. Extensive consolidations involve both lungs. Additional findings described above. Chest/Abdomen CTA 10/25/18 17:03 IMPRESSION: This exam is nondiagnostic for aorta is suggested dissection because no IVC could not be administered due to infiltration of the IV site. There is slight dilatation of the proximal aortic arch. Extensive consolidations involve both lungs. Additional findings described above. Chest X-Ray 10/28/18 06:00 IMPRESSION: Significant improvement with residual bibasilar changes and effusion. Assessment and Plan - Diagnosis (1) Acute respiratory failure with hypoxia Is this a current diagnosis for this admission?: Yes Plan: Secondary to bilateral pneumonia in the setting of COPD. Improved; patient has been downgraded to the telemetry floor from ICU, decreased respiratory rate today and improved patient comfort. Now tolerating periods off BiPAP. Continue supplemental oxygen and BiPAP support as needed to maintain saturations >89%; continue weaning attempts. Continue scheduled and as needed nebulizer treatments. Pulmonology is consulted; appreciate Dr. Barajas's assistance. (2) Bilateral pneumonia Qualifiers: Pneumonia type: due to unspecified organism Lung location: lower lobe of lung Qualified Code(s): J18.1 - Lobar pneumonia, unspecified organism Is this a current diagnosis for this admission?: Yes Plan: Improved; repeat chest x-ray demonstrated improved aeration. Supplemental oxygen, BiPAP, and nebulizer treatments. Continue IV cefepime. Vancomycin discontinued today. Blood cultures is a contaminant (staph hominis 1/4 bottles). Sputum culture has not been obtained. Mucinex twice daily. Incentive spirometer and flutter valve when off BiPAP. Pulmonology is consulted; appreciate Dr. Barajas's assistance. (3) COPD (chronic obstructive pulmonary disease) Qualifiers: Emphysema type: unspecified Is this a current diagnosis for this admission?: Yes Plan: No wheezing; no indications for steroids at this time. Management as above. (4) Chest pain Is this a current diagnosis for this admission?: Yes Plan: Patient's discomfort was reproducible; likely secondary to increased work of breathing. Troponins 0.012-> 0.049-> 0.061-> 0.075-> 0.039; no longer following We will continue to monitor on continuous cardiac telemetry. Continue home dose Plavix. Continue home dose atorvastatin. SL nitro tabs as needed chest pain. (5) Coronary artery disease Qualifiers: Coronary Disease-Associated Artery/Lesion type: [place] artery Is this a current diagnosis for this admission?: Yes Plan: Stable continue current management. (6) History of atrial fibrillation Is this a current diagnosis for this admission?: Yes Plan: Rate controlled; continue home medication regiment. Patient is not chronically anticoagulated. [id number] score 5; 7.2% yearly CVA risk However, would advise against chronic anticoaglation at this time due to bleed/fall risk. Recommend follow-up if you put in any lines are intubated making 5 I am almost done with my notes so discussion with patient's established educational psychology professor. (7) Hyperlipidemia Qualifiers: Hyperlipidemia type: unspecified Qualified Code(s): E78.5 - Hyperlipidemia, unspecified Is this a current diagnosis for this admission?: Yes Plan: Continue home medications. (8) Hypertension Qualifiers: Hypertension type: essential hypertension Qualified Code(s): I10 - Essential (primary) hypertension Is this a current diagnosis for this admission?: Yes Plan: Blood pressures are acceptable Continue home medications; monitor for continued hypertension requiring adjustments. (9) Nausea and vomiting Qualifiers: Vomiting Intractability: non-intractable Is this a current diagnosis for this admission?: Yes Plan: Resolved. (10) SIRS (systemic inflammatory response syndrome) Is this a current diagnosis for this admission?: Yes Plan: Evaluation management as above. (11) Weakness Is this a current diagnosis for this admission?: Yes Plan: Secondary to age, generalized debility, and acute illness. Fall precautions. PT/OT consulted. Anticipate patient will require home health nursing, physical therapy, occupational therapy, and aide services at discharge. (12) Anxiety Is this a current diagnosis for this admission?: Yes Plan: Patient with history of anxiety; utilizes Xanax at home twice daily and nightly. Now with increased fatigue. We will add twice daily BuSpar and continue her home medication regiment for now. - Time Time Spent with patient: 15-24 minutes Medications reviewed and adjusted accordingly: Yes Anticipated discharge: Home
[2018-10-30] MEDS: SIMVASTATIN 40 MG TABLET PO SCH (21:03)
[2018-10-30] MEDS: LOSARTAN POTASSIUM 50 MG TABLET PO SCH (21:03)
[2018-10-30] MEDS: INSULIN GLARGINE,HUM.REC.ANLOG 1,000 UNIT/10 ML VIAL SUBCUT SCH (21:04)
[2018-10-30] MEDS ORDERED: BUSPIRONE HCL 10 MG TABLET PO SCH (22:00)
[2018-10-30] MEDS: OXYCODONE-ACETAMINOPHEN 5-325 MG TABLET PO PRN (22:14)
[2018-10-31] MEDS: CEFEPIME HCL 2 GM in DEXTROSE 5%-WATER 50 ML IV SCH (05:17)
[2018-10-31] MEDS: LEVOTHYROXINE SODIUM 0.075 MG TABLET PO SCH (05:17)
[2018-10-31] MEDS: HEPARIN SOD (PORCINE) 5,000 UNIT/ML 1 ML SYRINGE SUBCUT SCH ×3 (05:17→21:04)
[2018-10-31] MEDS: OXYCODONE-ACETAMINOPHEN 5-325 MG TABLET PO PRN ×2 (07:34→21:04)
[2018-10-31] MEDS ORDERED: BUSPIRONE HCL 10 MG TABLET PO SCH (08:00)
[2018-10-31] MEDS: IPRATROPIUM BROMIDE 0.02% NEB 0.5 MG/2.5 ML AMPUL NEB SCH ×2 (08:14→21:17)
[2018-10-31] MEDS: LEVALBUTEROL HCL NEB 1.25 MG/3 ML AMPUL NEB SCH ×2 (08:14→21:17)
[2018-10-31] MEDS: FERROUS SULFATE 325 MG TABLET PO SCH ×2 (10:26→17:11)
[2018-10-31] MEDS: LACTULOSE SYRUP 20 GM/30 ML UDCUP PO SCH ×2 (10:26→21:03)
[2018-10-31] MEDS: NA PHOS,M-B/NA PHOS,DI-BA (ADULT) 133 ML ENEMA PR SCH ×2 (10:27→21:14)
[2018-10-31] MEDS: FAMOTIDINE INJ/PF 20 MG/2 ML SDV IV SCH ×2 (10:35→21:04)
[2018-10-31] MEDS: FLUTICASONE NASAL SPRAY 50 MCG/SPRY 120 SPRAY/16 GM NASL SCH ×2 (10:35→21:04)
[2018-10-31] MEDS: ALPRAZOLAM 0.5 MG TABLET PO PRN ×2 (10:36→21:03)
[2018-10-31] MEDS: GUAIFENESIN 600 MG TABLET.SA PO SCH ×2 (10:36→21:03)
[2018-10-31] MEDS: CLOPIDOGREL BISULFATE 75 MG TABLET PO SCH (10:36)
[2018-10-31] MEDS: FUROSEMIDE 80 MG TABLET PO SCH (10:37)
[2018-10-31] MEDS: PANTOPRAZOLE SODIUM 40 MG TABLET.DR PO SCH (10:38)
--- NOTE | 2018-10-31 11:00 | PDOC PROGRESS REPORT ---
Subjective Progress Note for:: 10/31/18 Subjective:: The patient is an 83-year-old female with past medical history of atrial fibrillation, CHF, CAD, [place], hyperlipidemia, hypertension, COPD, chronic respiratory failure, DM 2, hypothyroidism, arthritis , depression and anxiety who was admitted 10/25/2018 for acute respiratory failure with hypoxia secondary to bilateral pneumonia. The patient was seen on morning rounds; no family present. She was found resting in bed comfortably on nasal cannula. She reports that she is feeling better today, however, did not like the way the [employer] made her feel this morning reporting dizziness. Otherwise, she reports that she is feeling better; decreased dyspnea, cough, and return of appetite. She requests to advance her diet today. Physical therapy to come by, however the patient was feeling too dizzy to work with them today. She denies fever, chills, chest pain, palpitations, dyspnea, orthopnea, abdominal pain, nausea vomiting and diarrhea. No concerns per nursing. Reason For Visit: PNEUMONIA Physical Exam Vital Signs: Temp Pulse Resp BP Pulse Ox 98.6 F 82 20 140/50 H 99 10/31/18 07:22 10/31/18 08:15 10/31/18 08:15 10/31/18 07:22 10/31/18 08:15 Pulse Oximeter Continuous Start: 10/29/18 09:39 Freq: RTQ4 Status: Active Protocol: Document 10/31/18 08:15 BOR (Rec: 10/31/18 08:41 BOR [id number]) Pulse Oximetry Assessment Oxygen Saturation (92-100) 99 Oxygen Flow Rate (L/min) 4 Oxygen Delivery Method Nasal Cannula Fraction of Inspired Oxygen (FIO2) 36 Equipment Usage Equipment in Use Continuous SpO2 Machine # 1 Intake & Output 10/30/18 10/31/18 11/01/18 06:59 06:59 06:59 Intake Total 1288 2273 Output Total 4458 3879 Balance -987 -1552 Weight 104.7 kg 105.8 kg General appearance: PRESENT: no acute distress, obese, well-developed, well- nourished Head exam: PRESENT: atraumatic, normocephalic Eye exam: PRESENT: conjunctiva pink, EOMI, PERRLA. ABSENT: scleral icterus Ear exam: PRESENT: normal external ear exam Mouth exam: PRESENT: moist, tongue midline Neck exam: ABSENT: carotid bruit, JVD, lymphadenopathy, thyromegaly Respiratory exam: PRESENT: prolonged expiratory phas, rhonchi, symmetrical, unlabored, other - NC. ABSENT: rales, wheezes Cardiovascular exam: PRESENT: RRR, +S1, +S2, systolic murmur. ABSENT: diastolic murmur, rubs Pulses: PRESENT: normal dorsalis pedis pul Vascular exam: PRESENT: normal capillary refill GI/Abdominal exam: PRESENT: normal bowel sounds, soft. ABSENT: distended, guarding, mass, organolmegaly, rebound, tenderness Rectal exam: PRESENT: deferred Extremities exam: PRESENT: full ROM. ABSENT: calf tenderness, clubbing, pedal edema Neurological exam: PRESENT: alert, awake, oriented to person, oriented to place, oriented to time, oriented to situation, CN II-XII grossly intact. ABSENT: motor sensory deficit Psychiatric exam: PRESENT: anxious, appropriate affect, normal mood. ABSENT: homicidal ideation, suicidal ideation Skin exam: PRESENT: dry, intact, warm. ABSENT: cyanosis, rash Results Laboratory Results: 10/30/18 05:23 10/30/18 05:23 10/25/18 22:30 Blood Blood Culture - Final NO GROWTH IN 5 DAYS 10/25/18 21:28 Blood Blood Culture - Final Staphylococcus Hominis 10/25/18 10/25/18 10/26/18 19:27 21:55 04:00 Creatine Kinase 46 CK-MB (CK-2) Troponin I Cancelled < 0.012 10/26/18 10/26/18 10/26/18 04:05 10:40 10:40 Creatine Kinase 48 CK-MB (CK-2) 0.83 0.86 Troponin I 0.049 0.061 10/26/18 10/26/18 10/29/18 16:35 16:35 06:44 Creatine Kinase 47 CK-MB (CK-2) 0.86 Troponin I 0.075 0.039 Impressions: Abdomen/Pelvis CTA 10/25/18 17:03 IMPRESSION: This exam is nondiagnostic for aorta is suggested dissection because no IVC could not be administered due to infiltration of the IV site. There is slight dilatation of the proximal aortic arch. Extensive consolidations involve both lungs. Additional findings described above. Chest/Abdomen CTA 10/25/18 17:03 IMPRESSION: This exam is nondiagnostic for aorta is suggested dissection because no IVC could not be administered due to infiltration of the IV site. There is slight dilatation of the proximal aortic arch. Extensive consolidations involve both lungs. Additional findings described above. Chest X-Ray 10/28/18 06:00 IMPRESSION: Significant improvement with residual bibasilar changes and effusion. Assessment and Plan - Diagnosis (1) Acute respiratory failure with hypoxia Is this a current diagnosis for this admission?: Yes Plan: Improved; now maintaining oxygen saturations on NC while awake. Secondary to bilateral pneumonia in the setting of COPD. Continue supplemental oxygen and BiPAP support as needed to maintain saturations >89%; continue weaning attempts. Continue scheduled and as needed nebulizer treatments; will decrease frequency of scheduled nebs today. Pulmonology is consulted; appreciate Dr. Barajas's assistance. (2) Bilateral pneumonia Qualifiers: Pneumonia type: due to unspecified organism Lung location: lower lobe of lung Qualified Code(s): J18.1 - Lobar pneumonia, unspecified organism Is this a current diagnosis for this admission?: Yes Plan: Improved; repeat chest x-ray demonstrated improved aeration. Supplemental oxygen, BiPAP, and nebulizer treatments. Will discontinue IV cefepime today. Vancomycin discontinued yesterday Blood cultures is a contaminant (staph hominis 1/4 bottles). Sputum culture has not been obtained; pt denies productive cough at this time. Mucinex twice daily. Incentive spirometer and flutter valve when off BiPAP. Pulmonology is consulted; appreciate Dr. Barajas's assistance. (3) COPD (chronic obstructive pulmonary disease) Qualifiers: Emphysema type: unspecified Is this a current diagnosis for this admission?: Yes Plan: No wheezing; no indications for steroids at this time. Management as above. (4) Chest pain Is this a current diagnosis for this admission?: Yes Plan: Patient's discomfort was reproducible; likely secondary to increased work of breathing. Troponins 0.012-> 0.049-> 0.061-> 0.075-> 0.039; no longer following We will continue to monitor on continuous cardiac telemetry. Continue home dose Plavix. Continue home dose atorvastatin. SL nitro tabs as needed chest pain. (5) Coronary artery disease Qualifiers: Coronary Disease-Associated Artery/Lesion type: [place] artery Is this a current diagnosis for this admission?: Yes Plan: Stable continue current management. (6) History of atrial fibrillation Is this a current diagnosis for this admission?: Yes Plan: Rate controlled; continue home medication regiment. Patient is not chronically anticoagulated. [id number] score 5; 7.2% yearly CVA risk However, would advise against chronic anticoaglation at this time due to bleed/fall risk. 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 (7) Hyperlipidemia Qualifiers: Hyperlipidemia type: unspecified Qualified Code(s): E78.5 - Hyperlipidemia, unspecified Is this a current diagnosis for this admission?: Yes Plan: Continue home medications. (8) Hypertension Qualifiers: Hypertension type: essential hypertension Qualified Code(s): I10 - Essential (primary) hypertension Is this a current diagnosis for this admission?: Yes Plan: Blood pressures are acceptable Continue home medications; monitor for continued hypertension requiring adjustments. (9) Nausea and vomiting Qualifiers: Vomiting Intractability: non-intractable Is this a current diagnosis for this admission?: Yes Plan: Resolved. (10) SIRS (systemic inflammatory response syndrome) Is this a current diagnosis for this admission?: Yes Plan: Evaluation management as above. (11) Weakness Is this a current diagnosis for this admission?: Yes Plan: Secondary to age, generalized debility, and acute illness. Fall precautions. PT/OT consulted. Anticipate patient will require home health nursing, physical therapy, occupational therapy, and aide services at discharge. (12) Anxiety Is this a current diagnosis for this admission?: Yes Plan: Patient with history of anxiety; utilizes Xanax at home twice daily and nightly. Continue home regiment. - Time Time Spent with patient: 25-34 minutes Medications reviewed and adjusted accordingly: Yes Anticipated discharge: Home with Homehealth - vs SNF for rehab Within: within 48 hours
[2018-10-31] MEDS: SIMVASTATIN 40 MG TABLET PO SCH (21:03)
[2018-10-31] MEDS: LOSARTAN POTASSIUM 50 MG TABLET PO SCH (21:03)
[2018-10-31] MEDS: INSULIN GLARGINE,HUM.REC.ANLOG 1,000 UNIT/10 ML VIAL SUBCUT SCH (21:05)
[2018-11-01] MEDS: HEPARIN SOD (PORCINE) 5,000 UNIT/ML 1 ML SYRINGE SUBCUT SCH ×3 (06:38→21:49)
[2018-11-01] MEDS ORDERED: LEVOTHYROXINE SODIUM 0.075 MG TABLET ONE (06:38)
[2018-11-01] MEDS: LEVOTHYROXINE SODIUM 0.075 MG TABLET PO SCH (06:40)
[2018-11-01 07:11] LABS: HEMATOCRIT 26.4 % (36.0-47.0); HEMOGLOBIN 8.5 g/dL (12.0-15.5); MEAN CORPUSCULAR HEMOGLOBIN 27.8 pg (27.0-33.4); MEAN CORPUSCULAR VOLUME 87 fl (80-97); PLATELET COUNT 233 10^3/uL (150-450); RED BLOOD COUNT 3.04 10^6/uL (3.72-5.28); RED CELL DISTRIBUTION WIDTH 13.8 % (11.5-14.0); WHITE BLOOD COUNT 7.8 10^3/uL (4.0-10.5)
[2018-11-01 07:18] LABS: BLOOD UREA NITROGEN 19 mg/dL (7-20); CALCIUM 8.6 mg/dL (8.4-10.2); CHLORIDE 92 mmol/L (98-107); GLUCOSE 97 mg/dL (75-110); POTASSIUM 3.1 mmol/L (3.6-5.0); SODIUM 142.2 mmol/L (137-145)
[2018-11-01 07:44] LABS: ANION GAP 8 (5-19); CARBON DIOXIDE 42 mmol/L (22-30)
[2018-11-01] MEDS: IPRATROPIUM BROMIDE 0.02% NEB 0.5 MG/2.5 ML AMPUL NEB SCH ×2 (08:52→19:38)
[2018-11-01] MEDS: LEVALBUTEROL HCL NEB 1.25 MG/3 ML AMPUL NEB SCH ×2 (08:52→19:38)
[2018-11-01] MEDS ORDERED: FUROSEMIDE 80 MG TABLET PO SCH (10:00)
[2018-11-01] MEDS ORDERED: POTASSIUM CHLORIDE 10 MEQ CAPSULE.ER PO ONE (10:00)
[2018-11-01] MEDS: CLOPIDOGREL BISULFATE 75 MG TABLET PO SCH (10:01)
[2018-11-01] MEDS: GUAIFENESIN 600 MG TABLET.SA PO SCH ×2 (10:01→21:47)
[2018-11-01] MEDS: PANTOPRAZOLE SODIUM 40 MG TABLET.DR PO SCH (10:02)
[2018-11-01] MEDS: FERROUS SULFATE 325 MG TABLET PO SCH ×2 (10:03→18:17)
[2018-11-01] MEDS: FLUTICASONE NASAL SPRAY 50 MCG/SPRY 120 SPRAY/16 GM NASL SCH ×2 (10:03→21:50)
[2018-11-01] MEDS: LACTULOSE SYRUP 20 GM/30 ML UDCUP PO SCH ×2 (10:03→21:50)
[2018-11-01] MEDS: FAMOTIDINE INJ/PF 20 MG/2 ML SDV IV SCH ×2 (10:03→21:49)
[2018-11-01] MEDS: ALPRAZOLAM 0.5 MG TABLET PO PRN ×2 (10:09→21:46)
[2018-11-01] MEDS: FUROSEMIDE 80 MG TABLET PO SCH (10:11)
--- NOTE | 2018-11-01 10:11 | RADIOLOGY REPORT (SQ) ---
EXAM DESCRIPTION: CHEST SINGLE VIEW COMPLETED DATE/TIME: 11/01/2018 9:45 am REASON FOR STUDY: dyspnea COMPARISON: Chest films 11/02/2018, 10/26/2018, 10/28/2018 CT chest 10/25/2018 EXAM PARAMETERS: NUMBER OF VIEWS: One view. TECHNIQUE: Single frontal radiographic view of the chest acquired. RADIATION DOSE: NA LIMITATIONS: None. FINDINGS: LUNGS AND PLEURA: Persistent patchy airspace disease at both bases. No gross pleural effu lacy or pneumothorax. MEDIASTINUM AND HILAR STRUCTURES: No masses. Contour normal. HEART AND VASCULAR STRUCTURES: Stable cardiomegaly BONES: No acute findings. HARDWARE: Right jugular central line tip superior vena cava OTHER: No other significant finding. IMPRESSION: Persistent patchy bibasilar airspace disease unchanged TECHNICAL DOCUMENTATION: JOB ID: [id number] [employer]- All Rights Reserved Reading location - IP/workstation name: [email or web address]
[2018-11-01] MEDS: FUROSEMIDE 40 MG TABLET PO SCH (10:14)
[2018-11-01] MEDS: NA PHOS,M-B/NA PHOS,DI-BA (ADULT) 133 ML ENEMA PR SCH ×2 (11:32→21:50)
--- NOTE | 2018-11-01 12:11 | PDOC PROGRESS REPORT ---
Subjective Progress Note for:: 11/01/18 Subjective:: The patient is an 83-year-old female with past medical history of atrial fibrillation, CHF, CAD, [place], hyperlipidemia, hypertension, COPD, chronic respiratory failure, DM 2, hypothyroidism, arthritis , depression and anxiety who was admitted 10/25/2018 for acute respiratory failure with hypoxia secondary to bilateral pneumonia. The patient was seen on morning rounds with her present. She was found resting in bed comfortably on nasal cannula. She reports that she is feeling better today. She is anxious about slow improvement but is reassured that she is making incremental improvements. We discussed possible rehab options; if necessary would prefer [facility] (has been there in the past). Hopefully by the time she is weaned off of BiPAP (perhaps 1-2 more days), she will be well enough to return home with home health. She denies fever, chills, chest pain, palpitations, dyspnea, orthopnea, cough, abdominal pain, nausea vomiting and diarrhea. Primary complaint today is fatigue and generalized weakness. No concerns per nursing. Reason For Visit: PNEUMONIA Physical Exam Vital Signs: Temp Pulse Resp BP Pulse Ox 98.7 F 82 17 145/55 H 98 10/31/18 19:36 11/01/18 08:52 11/01/18 08:52 10/31/18 19:36 11/01/18 08:52 Pulse Oximeter Continuous Start: 10/29/18 09:39 Freq: RTQ4 Status: Active Protocol: Document 11/01/18 08:52 HCR (Rec: 11/01/18 10:49 HCR [id number]) Pulse Oximetry Assessment Oxygen Saturation (92-100) 98 Oxygen Flow Rate (L/min) 3 Oxygen Delivery Method Nasal Cannula Equipment Usage Equipment in Use Continuous SpO2 Machine # 1 Intake & Output 10/31/18 11/01/18 11/02/18 06:59 06:59 06:59 Intake Total 0484 200 Output Total 8235 2207 Balance -1552 -1278 Weight 105.8 kg 103.3 kg General appearance: PRESENT: no acute distress, cooperative, obese, well- developed, well-nourished Head exam: PRESENT: atraumatic, normocephalic Eye exam: PRESENT: conjunctiva pink, EOMI, PERRLA. ABSENT: scleral icterus Ear exam: PRESENT: normal external ear exam Mouth exam: PRESENT: moist, tongue midline Neck exam: ABSENT: carotid bruit, JVD, lymphadenopathy, thyromegaly Respiratory exam: PRESENT: clear to auscultation [place], decreased breath sounds - bibasilar; poor inspiratory effort, prolonged expiratory phas, symmetrical, unlabored, other - Supplemental oxygen via NC. ABSENT: rales, rhonchi, wheezes Cardiovascular exam: PRESENT: RRR, systolic murmur. ABSENT: diastolic murmur, rubs Pulses: PRESENT: normal dorsalis pedis pul Vascular exam: PRESENT: normal capillary refill GI/Abdominal exam: PRESENT: normal bowel sounds, soft. ABSENT: distended, guarding, mass, organolmegaly, rebound, tenderness Rectal exam: PRESENT: deferred Extremities exam: PRESENT: full ROM. ABSENT: calf tenderness, clubbing, pedal edema Neurological exam: PRESENT: alert, awake, oriented to person, oriented to place, oriented to time, oriented to situation, CN II-XII grossly intact. ABSENT: motor sensory deficit Psychiatric exam: PRESENT: anxious, appropriate affect, normal mood. ABSENT: homicidal ideation, suicidal ideation Skin exam: PRESENT: dry, intact, warm. ABSENT: cyanosis, rash Results Laboratory Results: 11/01/18 06:43 11/01/18 06:43 11/01/18 11/01/18 06:43 06:43 WBC 7.8 RBC 3.04 L Hgb 8.5 L Hct 26.4 L MCV 87 MCH 27.8 MCHC 32.0 RDW 13.8 Plt Count 233 Sodium 142.2 Potassium 3.1 L Chloride 92 L Carbon Dioxide 42 H* Anion Gap 8 BUN 19 Creatinine 0.79 Est GFR ( Amer) > 60 Est GFR (Non-Af Amer) > 60 Glucose 97 Calcium 8.6 10/25/18 21:28 Blood Blood Culture - Final Staphylococcus Hominis 10/25/18 10/25/18 10/26/18 19:27 21:55 04:00 Creatine Kinase 46 CK-MB (CK-2) Troponin I Cancelled < 0.012 10/26/18 10/26/18 10/26/18 04:05 10:40 10:40 Creatine Kinase 48 CK-MB (CK-2) 0.83 0.86 Troponin I 0.049 0.061 10/26/18 10/26/1819 16:35 16:35 06:44 Creatine Kinase 47 CK-MB (CK-2) 0.86 Troponin I 0.075 0.039 Impressions: Abdomen/Pelvis CTA 10/25/18 17:03 IMPRESSION: This exam is nondiagnostic for aorta is suggested dissection because no IVC could not be administered due to infiltration of the IV site. There is slight dilatation of the proximal aortic arch. Extensive consolidations involve both lungs. Additional findings described above. Chest/Abdomen CTA 10/25/18 17:03 IMPRESSION: This exam is nondiagnostic for aorta is suggested dissection because no IVC could not be administered due to infiltration of the IV site. There is slight dilatation of the proximal aortic arch. Extensive consolidations involve both lungs. Additional findings described above. Chest X-Ray 11/01/18 00:00 IMPRESSION: Persistent patchy bibasilar airspace disease unchanged Assessment and Plan - Diagnosis (1) Acute respiratory failure with hypoxia Is this a current diagnosis for this admission?: Yes Plan: Improved; now maintaining oxygen saturations on NC most of the day w/ BiPAP when asleep. Patient is Home O2 dependant at 2lpm Secondary to bilateral pneumonia in the setting of COPD. Continue supplemental oxygen and BiPAP support as needed to maintain saturations >89%; continue weaning attempts. Continue scheduled and as needed nebulizer treatments. Pulmonology is consulted; appreciate Dr. Barajas's assistance. Patient and inform me that she has been told she requires CPAP but has not completed sleep study; this may inhibit ability to entirely wean from BiPAP at night. (2) Bilateral pneumonia Qualifiers: Pneumonia type: due to unspecified organism Lung location: lower lobe of lung Qualified Code(s): J18.1 - Lobar pneumonia, unspecified organism Is this a current diagnosis for this admission?: Yes Plan: Improved. Repeat chest x-ray is stable; patchy opacities, overall improved from time of admission. Supplemental oxygen, BiPAP, and nebulizer treatments. Have discontinued IV cefepime and Vancomycin. Blood cultures is a contaminant (staph hominis 1/4 bottles). Sputum culture has not been obtained; pt denies productive cough at this time. Mucinex twice daily. Incentive spirometer and flutter valve when off BiPAP. Pulmonology is consulted; appreciate Dr. Barajas's assistance. (3) COPD (chronic obstructive pulmonary disease) Qualifiers: Emphysema type: unspecified Is this a current diagnosis for this admission?: Yes Plan: No wheezing; no indications for steroids at this time. Management as above. (4) Chest pain Is this a current diagnosis for this admission?: Yes Plan: Patient's discomfort was reproducible; likely secondary to increased work of breathing. Troponins 0.012-> 0.049-> 0.061-> 0.075-> 0.039; no longer following We will continue to monitor on continuous cardiac telemetry. Continue home dose Plavix. Continue home dose atorvastatin. SL nitro tabs as needed chest pain. (5) Coronary artery disease Qualifiers: Coronary Disease-Associated Artery/Lesion type: [place] artery Is this a current diagnosis for this admission?: Yes Plan: Stable continue current management. (6) History of atrial fibrillation Is this a current diagnosis for this admission?: Yes Plan: Rate controlled; continue home medication regiment. Patient is not chronically anticoagulated. [id number] score 5; 7.2% yearly CVA risk However, would advise against chronic anticoaglation at this time due to bleed/fall risk. 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 (7) Hyperlipidemia Qualifiers: Hyperlipidemia type: unspecified Qualified Code(s): E78.5 - Hyperlipidemia, unspecified Is this a current diagnosis for this admission?: Yes Plan: Continue home medications. (8) Hypertension Qualifiers: Hypertension type: essential hypertension Qualified Code(s): I10 - Essential (primary) hypertension Is this a current diagnosis for this admission?: Yes Plan: Blood pressures are acceptable Continue home medications; monitor for continued hypertension requiring adjustments. (9) Nausea and vomiting Qualifiers: Vomiting Intractability: non-intractable Is this a current diagnosis for this admission?: Yes Plan: Resolved. (10) SIRS (systemic inflammatory response syndrome) Is this a current diagnosis for this admission?: Yes Plan: Evaluation management as above. (11) Weakness Is this a current diagnosis for this admission?: Yes Plan: Secondary to age, generalized debility, and acute illness. Fall precautions. PT/OT consulted. Anticipate patient will require home health nursing, physical therapy, occupational therapy, and aide services at discharge. Discharge planning is consulted. (12) Anxiety Is this a current diagnosis for this admission?: Yes Plan: Patient with history of anxiety; utilizes Xanax at home twice daily and nightly. Continue home regiment. - Time Time Spent with patient: 25-34 minutes Medications reviewed and adjusted accordingly: Yes Anticipated discharge: Home with Homehealth - vs SNF rehab Within: within 72 hours
[2018-11-01] MEDS: OXYCODONE-ACETAMINOPHEN 5-325 MG TABLET PO PRN (18:18)
[2018-11-01] MEDS: LOSARTAN POTASSIUM 50 MG TABLET PO SCH (21:46)
[2018-11-01] MEDS: SIMVASTATIN 40 MG TABLET PO SCH (21:47)
[2018-11-01] MEDS: INSULIN GLARGINE,HUM.REC.ANLOG 1,000 UNIT/10 ML VIAL SUBCUT SCH (21:49)
[2018-11-02 05:06] LABS: HEMATOCRIT 26.5 % (36.0-47.0); HEMOGLOBIN 8.7 g/dL (12.0-15.5); MEAN CORPUSCULAR HEMOGLOBIN 28.4 pg (27.0-33.4); MEAN CORPUSCULAR HGB CONC 32.7 g/dL (32.0-36.0); MEAN CORPUSCULAR VOLUME 87 fl (80-97); PLATELET COUNT 258 10^3/uL (150-450); RED BLOOD COUNT 3.05 10^6/uL (3.72-5.28); RED CELL DISTRIBUTION WIDTH 13.9 % (11.5-14.0); WHITE BLOOD COUNT 8.7 10^3/uL (4.0-10.5)
[2018-11-02] MEDS: LEVOTHYROXINE SODIUM 0.075 MG TABLET PO SCH (05:07)
[2018-11-02] MEDS: HEPARIN SOD (PORCINE) 5,000 UNIT/ML 1 ML SYRINGE SUBCUT SCH ×3 (05:09→21:52)
[2018-11-02 05:29] LABS: BLOOD UREA NITROGEN 17 mg/dL (7-20); CALCIUM 8.4 mg/dL (8.4-10.2); CHLORIDE 88 mmol/L (98-107); GLUCOSE 120 mg/dL (75-110); POTASSIUM 3.1 mmol/L (3.6-5.0); SODIUM 141.5 mmol/L (137-145)
[2018-11-02 05:49] LABS: ANION GAP 9 (5-19); CARBON DIOXIDE 45 mmol/L (22-30)
[2018-11-02 06:34] LABS: ARTERIAL BLOOD BASE EXCESS 17.4 mmol/L; ARTERIAL BLOOD FIO2 32%; ARTERIAL BLOOD H2CO3 1.91 mmol/L (1.05-1.35); ARTERIAL BLOOD HCO3 43.7 mmol/L (20-24); ARTERIAL BLOOD O2 SATURATION 99.3 % (94-98); ARTERIAL BLOOD PCO2 63.5 mmHg (35-45); ARTERIAL BLOOD PH 7.46 (7.35-7.45); ARTERIAL BLOOD TOTAL CO2 45.7 mmol/L (21-25)
[2018-11-02] MEDS: POTASSI CL 20 MEQ/50 ML RIDER 20 MEQ/50 ML RTUPB IV SCH ×2 (06:45→09:19)
[2018-11-02] MEDS: IPRATROPIUM BROMIDE 0.02% NEB 0.5 MG/2.5 ML AMPUL NEB SCH ×2 (08:11→20:53)
[2018-11-02] MEDS: LEVALBUTEROL HCL NEB 1.25 MG/3 ML AMPUL NEB SCH ×2 (08:11→20:53)
[2018-11-02] MEDS ORDERED: IPRATROPIUM/ALBUTEROL 0.5-2.5 MG/3 ML AMPUL NEB PRN (08:18)
[2018-11-02] MEDS ORDERED: POTASSIUM CHLORIDE 10 MEQ CAPSULE.ER PO ONE (09:00)
[2018-11-02] MEDS: CLOPIDOGREL BISULFATE 75 MG TABLET PO SCH (09:31)
[2018-11-02] MEDS: GUAIFENESIN 600 MG TABLET.SA PO SCH ×2 (09:31→21:49)
[2018-11-02] MEDS: ALPRAZOLAM 0.5 MG TABLET PO PRN ×2 (09:31→21:49)
[2018-11-02] MEDS: FERROUS SULFATE 325 MG TABLET PO SCH ×2 (09:31→18:31)
[2018-11-02] MEDS: PANTOPRAZOLE SODIUM 40 MG TABLET.DR PO SCH (09:32)
[2018-11-02] MEDS: OXYCODONE-ACETAMINOPHEN 5-325 MG TABLET PO PRN ×2 (09:32→22:36)
[2018-11-02] MEDS: FUROSEMIDE 40 MG TABLET PO SCH (09:34)
[2018-11-02] MEDS: NA PHOS,M-B/NA PHOS,DI-BA (ADULT) 133 ML ENEMA PR SCH ×2 (09:36→21:55)
[2018-11-02] MEDS: LACTULOSE SYRUP 20 GM/30 ML UDCUP PO SCH ×2 (09:36→21:55)
[2018-11-02] MEDS: FLUTICASONE NASAL SPRAY 50 MCG/SPRY 120 SPRAY/16 GM NASL SCH ×2 (09:39→21:54)
[2018-11-02] MEDS: MAGNESIUM SULFATE/D5W 1 GM/100 ML RTUPB IV SCH ×2 (09:44→11:04)
--- NOTE | 2018-11-02 12:03 | PDOC PROGRESS REPORT ---
Subjective Progress Note for:: 11/02/18 Subjective:: 83-year-old female with past medical history of atrial fibrillation, CHF, CAD, AK, hyperlipidemia, hypertension, COPD, chronic respiratory failure, DM 2, hypothyroidism, arthritis , depression and anxiety who was admitted 10/25/2018 for acute respiratory failure with hypoxia secondary to bilateral pneumonia. The patient was seen on morning rounds with her present. She was found resting in bed comfortably on nasal cannula. She reports that she is feeling better today. She is anxious about slow improvement but is reassured that she is making incremental improvements. We discussed possible rehab options; if necessary would prefer [facility] (has been there in the past). Hopefully by the time she is weaned off of BiPAP (perhaps 1-2 more days), she will be well enough to return home with home health. She denies fever, chills, chest pain, palpitations, dyspnea, orthopnea, cough, abdominal pain, nausea vomiting and diarrhea. Primary complaint today is fatigue and generalized weakness. No concerns per nursing. 11/02/[id number]-atqs-old female with history of atrial fibrillation, congestive heart failure, coronary artery disease, AK, hyperlipidemia, hypertension, COPD, chronic respiratory failure, diabetes mellitus type 2, hypothyroidism, arthri tis, depression, anxiety admitted with acute on chronic respiratory failure with hypoxia. Work-up shows bilateral pneumonia. Latest x-ray does not show any improvement. Pulse ox today is 99% on BiPAP with 35% oxygen. Comfortably in the bed. Afebrile. No complaints from the patient today. Reason For Visit: PNEUMONIA Physical Exam Vital Signs: Temp Pulse Resp BP Pulse Ox 97.6 F 80 16 149/72 H 100 11/02/18 08:29 11/02/18 08:29 11/02/18 08:29 11/02/18 08:29 11/02/18 08:29 Pulse Oximeter Continuous Start: 10/29/18 09:39 Freq: RTQ4 Status: Active Protocol: Document 11/02/18 08:11 [facility] [place] (Rec: 11/02/18 08:30 [facility] [place] [id number]) Pulse Oximetry Assessment Oxygen Saturation (92-100) 95 Oxygen Flow Rate (L/min) 3 Oxygen Delivery Method Nasal Cannula Fraction of Inspired Oxygen (FIO2) 32 Equipment Usage Equipment in Use Continuous SpO2 Machine # N 1 Intake & Output 11/01/18 11/02/18 11/03/18 06:59 06:59 06:59 Intake Total 676 1235 100 Output Total 5985 7890 Balance -7074 -1667 100 Weight 103.3 kg 103.3 kg General appearance: PRESENT: no acute distress, morbidly obese Head exam: PRESENT: atraumatic Eye exam: PRESENT: PERRLA Mouth exam: PRESENT: moist, tongue midline Teeth exam: PRESENT: poor dentation Neck exam: ABSENT: carotid bruit, JVD, lymphadenopathy, thyromegaly Respiratory exam: PRESENT: decreased breath sounds Cardiovascular exam: PRESENT: systolic murmur, tachycardia GI/Abdominal exam: PRESENT: normal bowel sounds, soft. ABSENT: distended, guarding, mass, organolmegaly, rebound, tenderness Rectal exam: PRESENT: deferred Extremities exam: PRESENT: full ROM. ABSENT: calf tenderness, clubbing, pedal edema Neurological exam: PRESENT: alert, awake, oriented to person, oriented to place, oriented to time, oriented to situation, CN II-XII grossly intact. ABSENT: motor sensory deficit Psychiatric exam: PRESENT: appropriate affect, normal mood. ABSENT: homicidal ideation, suicidal ideation Results Laboratory Results: 11/02/18 04:45 11/02/18 04:45 11/02/18 11/02/18 11/02/18 04:45 04:45 04:45 WBC 8.7 RBC 3.05 L Hgb 8.7 L Hct 26.5 L MCV 87 MCH 28.4 MCHC 32.7 RDW 13.9 Plt Count 258 Carbonic Acid HCO3/H2CO3 Ratio ABG pH ABG pCO2 ABG pO2 ABG HCO3 ABG O2 Saturation ABG Base Excess FiO2 Sodium 141.5 Potassium 3.1 L Chloride 88 L Carbon Dioxide 45 H* Anion Gap 9 BUN 17 Creatinine 0.75 Est GFR ( Amer) > 60 Est GFR (Non-Af Amer) > 60 Glucose 120 H Calcium 8.4 Magnesium 1.6 11/02/18 06:18 WBC RBC Hgb Hct MCV MCH MCHC RDW Plt Count Carbonic Acid 1.91 H HCO3/H2CO3 Ratio 22:1 ABG pH 7.46 H ABG pCO2 63.5 H ABG pO2 191.0 H ABG HCO3 43.7 H ABG O2 Saturation 99.3 H ABG Base Excess 17.4 FiO2 32% Sodium Potassium Chloride Carbon Dioxide Anion Gap BUN Creatinine Est GFR ( Amer) Est GFR (Non-Af Amer) Glucose Calcium Magnesium 10/25/18 21:28 Blood Blood Culture - Final Staphylococcus Hominis 10/25/18 10/25/18 10/26/18 19:27 21:55 04:00 Creatine Kinase 46 CK-MB (CK-2) Troponin I Cancelled < 0.012 10/26/18 10/26/18 10/26/18 04:05 10:40 10:40 Creatine Kinase 48 CK-MB (CK-2) 0.83 0.86 Troponin I 0.049 0.061 10/26/18 10/26/18 10/29/18 16:35 16:35 06:44 Creatine Kinase 47 CK-MB (CK-2) 0.86 Troponin I 0.075 0.039 Impressions: Abdomen/Pelvis CTA 10/25/18 17:03 IMPRESSION: This exam is nondiagnostic for aorta is suggested dissection because no IVC could not be administered due to infiltration of the IV site. There is slight dilatation of the proximal aortic arch. Extensive consolidations involve both lungs. Additional findings described above. Chest/Abdomen CTA 10/25/18 17:03 IMPRESSION: This exam is nondiagnostic for aorta is suggested dissection because no IVC could not be administered due to infiltration of the IV site. There is slight dilatation of the proximal aortic arch. Extensive consolidations involve both lungs. Additional findings described above. Chest X-Ray 11/01/18 00:00 IMPRESSION: Persistent patchy bibasilar airspace disease unchanged Assessment and Plan - Diagnosis (1) Acute respiratory failure with hypoxia Is this a current diagnosis for this admission?: Yes Plan: Improved; now maintaining oxygen saturations on NC most of the day w/ BiPAP when asleep. Patient is Home O2 dependant at 2lpm Secondary to bilateral pneumonia in the setting of COPD. Continue supplemental oxygen and BiPAP support as needed to maintain saturations >89%; continue weaning attempts. Continue scheduled and as needed nebulizer treatments. Pulmonology is consulted; appreciate Dr. Barajas's assistance. Patient and inform me that she has been told she requires CPAP but has not completed sleep study; this may inhibit ability to entirely wean from BiPAP at night. 11/02/[id number]-muig-old female admitted with acute respiratory failure with hypoxia most likely secondary to bilateral pneumonia. Pulmonary consult was requested. Pulse ox is 99% on 35% oxygen on BiPAP this morning. At the time of my examination patient is on 2 L oxygen pulse ox is 97%. Plan is to continue scheduled and as needed nebulizer treatments. (2) Bilateral pneumonia Qualifiers: Pneumonia type: due to unspecified organism Lung location: lower lobe of lung Qualified Code(s): J18.1 - Lobar pneumonia, unspecified organism Is this a current diagnosis for this admission?: Yes Plan: Improved. Repeat chest x-ray is stable; patchy opacities, overall improved from time of admission. Supplemental oxygen, BiPAP, and nebulizer treatments. Have discontinued IV cefepime and Vancomycin. Blood cultures is a contaminant (staph hominis 1/4 bottles). Sputum culture has not been obtained; pt denies productive cough at this time. Mucinex twice daily. Incentive spirometer and flutter valve when off BiPAP. Pulmonology is consulted; appreciate Dr. Barajas's assistance. 11/02/2018-patient admitted with bilateral pneumonia. Most likely community- acquired pneumonia. Most likely may be gram-positive organisms. Blood cultures positive for staph hominis which may be contaminant. Blood cultures are negative so far. Plan is to continue the antibiotic therapy, as needed and scheduled nebulizations. Patient is presently not on antibiotics afebrile with a temperature of 98.2. (3) COPD (chronic obstructive pulmonary disease) Qualifiers: Emphysema type: unspecified Is this a current diagnosis for this admission?: Yes Plan: No wheezing; no indications for steroids at this time. Management as above. 11/02/2018-on examination chest bilateral entry was decreased no wheezing no crepitations. Plan is to continue the present management. (4) History of atrial fibrillation Is this a current diagnosis for this admission?: Yes Plan: Rate controlled; continue home medication regiment. Patient is not chronically anticoagulated. [id number] score 5; 7.2% yearly CVA risk However, would advise against chronic anticoaglation at this time due to bleed/fall risk. Recommend follow-up discussion with patient's established tube repairer. 11/02/2018-patient has a history of atrial fibrillation not on chronic anticoagulation. Patient is a high risk for further falls and possible bleed. (5) SIRS (systemic inflammatory response syndrome) Is this a current diagnosis for this admission?: Yes Plan: Evaluation management as above. (6) Morbid obesity Is this a current diagnosis for this admission?: No Plan: 11/02/2018-patient BMI is more than 43 dietary advice provided. Dietary consult is going to be requested for dietary recommendations. - Time Time Spent with patient: 25-34 minutes Medications reviewed and adjusted accordingly: Yes Anticipated discharge: Home with Homehealth
[2018-11-02] MEDS: SIMVASTATIN 40 MG TABLET PO SCH (21:49)
[2018-11-02] MEDS: LOSARTAN POTASSIUM 50 MG TABLET PO SCH (21:49)
[2018-11-02] MEDS: INSULIN GLARGINE,HUM.REC.ANLOG 1,000 UNIT/10 ML VIAL SUBCUT SCH (21:52)
[2018-11-03] MEDS: LEVOTHYROXINE SODIUM 0.075 MG TABLET PO SCH (05:17)
[2018-11-03] MEDS: HEPARIN SOD (PORCINE) 5,000 UNIT/ML 1 ML SYRINGE SUBCUT SCH ×3 (05:19→22:07)
[2018-11-03 06:04] LABS: ABSOLUTE BASOPHILS # (AUTO) 0.1 10^3/uL (0.0-0.2); ABSOLUTE EOSINOPHILS # (AUTO) 0.4 10^3/uL (0.0-0.6); ABSOLUTE LYMPHOCYTES (AUTO) 1.5 10^3/uL (0.5-4.7); ABSOLUTE MONOCYTES (AUTO) 0.6 10^3/uL (0.1-1.4); ABSOLUTE NEUT (AUTO) 4.9 10^3/uL (1.7-8.2); BASOPHILS % (AUTO) 0.8 % (0-2); EOSINOPHILS % (AUTO) 4.9 % (0-6); HEMATOCRIT 25.9 % (36.0-47.0); HEMOGLOBIN 8.5 g/dL (12.0-15.5); LYMPHOCYTES % (AUTO) 20.6 % (13-45); MEAN CORPUSCULAR HEMOGLOBIN 28.6 pg (27.0-33.4); MEAN CORPUSCULAR HGB CONC 32.9 g/dL (32.0-36.0); MEAN CORPUSCULAR VOLUME 87 fl (80-97); MONOCYTES % (AUTO) 7.7 % (3-13); PLATELET COUNT 240 10^3/uL (150-450); RED BLOOD COUNT 2.98 10^6/uL (3.72-5.28); RED CELL DISTRIBUTION WIDTH 14.1 % (11.5-14.0); TOTAL CELLS COUNTED % (AUTO) 100 %; WHITE BLOOD COUNT 7.4 10^3/uL (4.0-10.5)
[2018-11-03 06:21] LABS: ALANINE AMINOTRANSFERASE 22 U/L (9-52); ALBUMIN 3.3 g/dL (3.5-5.0); ALKALINE PHOSPHATASE 85 U/L (38-126); ASPARTATE AMINO TRANSFERASE 17 U/L (14-36); BILIRUBIN,DIRECT 0.3 mg/dL (0.0-0.4); BILIRUBIN,TOTAL 0.3 mg/dL (0.2-1.3); BLOOD UREA NITROGEN 23 mg/dL (7-20); CALCIUM 9.2 mg/dL (8.4-10.2); CHLORIDE 90 mmol/L (98-107); GLUCOSE 123 mg/dL (75-110); POTASSIUM 4.1 mmol/L (3.6-5.0); SODIUM 139.8 mmol/L (137-145); TOTAL PROTEIN 6.5 g/dL (6.3-8.2)
[2018-11-03 06:29] LABS: ANION GAP 6 (5-19)
[2018-11-03 06:30] LABS: CARBON DIOXIDE 44 mmol/L (22-30)
[2018-11-03] MEDS: LEVALBUTEROL HCL NEB 1.25 MG/3 ML AMPUL NEB SCH ×2 (07:27→21:32)
[2018-11-03] MEDS: IPRATROPIUM BROMIDE 0.02% NEB 0.5 MG/2.5 ML AMPUL NEB SCH ×2 (07:27→21:32)
[2018-11-03] MEDS: GUAIFENESIN 600 MG TABLET.SA PO SCH ×2 (09:47→22:05)
[2018-11-03] MEDS: FUROSEMIDE 40 MG TABLET PO SCH (09:47)
[2018-11-03] MEDS: FERROUS SULFATE 325 MG TABLET PO SCH ×2 (09:47→18:58)
[2018-11-03] MEDS: CLOPIDOGREL BISULFATE 75 MG TABLET PO SCH (09:47)
[2018-11-03] MEDS: PANTOPRAZOLE SODIUM 40 MG TABLET.DR PO SCH (09:47)
[2018-11-03] MEDS: NA PHOS,M-B/NA PHOS,DI-BA (ADULT) 133 ML ENEMA PR SCH ×2 (09:49→22:07)
[2018-11-03] MEDS: FLUTICASONE NASAL SPRAY 50 MCG/SPRY 120 SPRAY/16 GM NASL SCH ×2 (09:49→22:07)
[2018-11-03] MEDS: LACTULOSE SYRUP 20 GM/30 ML UDCUP PO SCH ×2 (09:49→22:07)
--- NOTE | 2018-11-03 12:19 | PDOC PROGRESS REPORT ---
Subjective Progress Note for:: 11/03/18 Subjective:: 83-year-old female with past medical history of atrial fibrillation, CHF, CAD, AK, hyperlipidemia, hypertension, COPD, chronic respiratory failure, DM 2, hypothyroidism, arthritis , depression and anxiety who was admitted 10/25/2018 for acute respiratory failure with hypoxia secondary to bilateral pneumonia. The patient was seen on morning rounds with her present. She was found resting in bed comfortably on nasal cannula. She reports that she is feeling better today. She is anxious about slow improvement but is reassured that she is making incremental improvements. We discussed possible rehab options; if necessary would prefer [facility] (has been there in the past). Hopefully by the time she is weaned off of BiPAP (perhaps 1-2 more days), she will be well enough to return home with home health. She denies fever, chills, chest pain, palpitations, dyspnea, orthopnea, cough, abdominal pain, nausea vomiting and diarrhea. Primary complaint today is fatigue and generalized weakness. No concerns per nursing. 11/02/[id number]-funa-old female with history of atrial fibrillation, congestive heart failure, coronary artery disease, AK, hyperlipidemia, hypertension, COPD, chronic respiratory failure, diabetes mellitus type 2, hypothyroidism, arthri tis, depression, anxiety admitted with acute on chronic respiratory failure with hypoxia. Work-up shows bilateral pneumonia. Latest x-ray does not show any improvement. Pulse ox today is 99% on BiPAP with 35% oxygen. Comfortably in the bed. Afebrile. No complaints from the patient today. 11/03/2018-elderly female with multiple medical problems admitted for acute on chronic respiratory failure with hypoxia. Chest x-ray indicates bilateral pneumonia. She is using the BiPAP at night at this time. Pulse ox is 98% on 35% oxygen this morning. At the time of my examination pulse ox is 98% on 2 L. Portably in the bed communicating well. Patient wants to go home but she agreed to [facility] anyway. Reason For Visit: PNEUMONIA Physical Exam Vital Signs: Temp Pulse Resp BP Pulse Ox 97.5 F 77 23 H 149/62 H 100 11/03/18 08:01 11/03/18 08:01 11/03/18 08:01 11/03/18 08:01 11/03/18 08:01 Pulse Oximeter Continuous Start: 10/29/18 09:39 Freq: RTQ4 Status: Active Protocol: Document 11/03/18 07:29 [facility] (Rec: 11/03/18 07:31 [facility] [id number]) Pulse Oximetry Assessment Oxygen Saturation (92-100) 100 Oxygen Delivery Method Bi-pap Fraction of Inspired Oxygen (FIO2) 35 Equipment Usage Equipment in Use Continuous SpO2 Machine # N1 Intake & Output 11/02/18 11/03/18 11/04/18 06:59 06:59 06:59 Intake Total 1235 2040 Output Total 2900 1550 Balance -1665 490 Weight 103.3 kg 102.9 kg General appearance: PRESENT: no acute distress Head exam: PRESENT: atraumatic Eye exam: PRESENT: PERRLA Mouth exam: PRESENT: moist, tongue midline Neck exam: ABSENT: carotid bruit, JVD, lymphadenopathy, thyromegaly Respiratory exam: PRESENT: decreased breath sounds Cardiovascular exam: PRESENT: systolic murmur, tachycardia GI/Abdominal exam: PRESENT: normal bowel sounds, soft. ABSENT: distended, guarding, mass, organolmegaly, rebound, tenderness Rectal exam: PRESENT: deferred Gentrourinary exam: PRESENT: indwelling catheter Neurological exam: PRESENT: alert, awake, oriented to person, oriented to place, oriented to time, oriented to situation, CN II-XII grossly intact. ABSENT: motor sensory deficit Results Laboratory Results: 11/03/18 05:05 11/03/18 05:05 11/03/18 11/03/18 11/03/18 05:05 05:05 05:05 WBC 7.4 RBC 2.98 L Hgb 8.5 L Hct 25.9 L MCV 87 MCH 28.6 MCHC 32.9 RDW 14.1 H Plt Count 240 Seg Neutrophils % 66.0 Lymphocytes % 20.6 Monocytes % 7.7 Eosinophils % 4.9 Basophils % 0.8 Absolute Neutrophils 4.9 Absolute Lymphocytes 1.5 Absolute Monocytes 0.6 Absolute Eosinophils 0.4 Absolute Basophils 0.1 Sodium 139.8 Potassium 4.1 Chloride 90 L Carbon Dioxide 44 H* Anion Gap 6 BUN 23 H Creatinine 0.86 Est GFR ( Amer) > 60 Est GFR (Non-Af Amer) > 60 Glucose 123 H Calcium 9.2 Magnesium 2.0 Total Bilirubin 0.3 AST 17 ALT 22 Alkaline Phosphatase 85 Total Protein 6.5 Albumin 3.3 L 10/25/18 10/25/18 10/26/18 19:27 21:55 04:00 Creatine Kinase 46 CK-MB (CK-2) Troponin I Cancelled < 0.012 10/26/18 10/26/18 10/26/18 04:05 10:40 10:40 Creatine Kinase 48 CK-MB (CK-2) 0.83 0.86 Troponin I 0.049 0.061 10/26/18 10/26/18 10/29/18 16:35 16:35 06:44 Creatine Kinase 47 CK-MB (CK-2) 0.86 Troponin I 0.075 0.039 Impressions: Abdomen/Pelvis CTA 10/25/18 17:03 IMPRESSION: This exam is nondiagnostic for aorta is suggested dissection because no IVC could not be administered due to infiltration of the IV site. There is slight dilatation of the proximal aortic arch. Extensive consolidations involve both lungs. Additional findings described above. Chest/Abdomen CTA 10/25/18 17:03 IMPRESSION: This exam is nondiagnostic for aorta is suggested dissection because no IVC could not be administered due to infiltration of the IV site. There is slight dilatation of the proximal aortic arch. Extensive consolidations involve both lungs. Additional findings described above. Chest X-Ray 11/01/18 00:00 IMPRESSION: Persistent patchy bibasilar airspace disease unchanged Assessment and Plan - Diagnosis (1) Acute respiratory failure with hypoxia Is this a current diagnosis for this admission?: Yes Plan: Improved; now maintaining oxygen saturations on NC most of the day w/ BiPAP when asleep. Patient is Home O2 dependant at 2lpm Secondary to bilateral pneumonia in the setting of COPD. Continue supplemental oxygen and BiPAP support as needed to maintain saturations >89%; continue weaning attempts. Continue scheduled and as needed nebulizer treatments. Pulmonology is consulted; appreciate Dr. Barajas's assistance. Patient and inform me that she has been told she requires CPAP but has not completed sleep study; this may inhibit ability to entirely wean from BiPAP at night. 11/02/[id number]-zwix-old female admitted with acute respiratory failure with hypoxia most likely secondary to bilateral pneumonia. Pulmonary consult was r equested. Pulse ox is 99% on 35% oxygen on BiPAP this morning. At the time of my examination patient is on 2 L oxygen pulse ox is 97%. Plan is to continue scheduled and as needed nebulizer treatments. 11/03/[id number]-sycc-old female admitted with acute on chronic respiratory failure with hypoxia pulse ox is 98% on 2 L this morning. Presently on a scheduled and as needed nebulizer treatments. Recently not on antibiotics. Afebrile. With T-max of 97.3. Blood cultures are negative. (2) Bilateral pneumonia Qualifiers: Pneumonia type: due to unspecified organism Lung location: lower lobe of lung Qualified Code(s): J18.1 - Lobar pneumonia, unspecified organism Is this a current diagnosis for this admission?: Yes Plan: Improved. Repeat chest x-ray is stable; patchy opacities, overall improved from time of admission. Supplemental oxygen, BiPAP, and nebulizer treatments. Have discontinued IV cefepime and Vancomycin. Blood cultures is a contaminant (staph hominis 1/4 bottles). Sputum culture has not been obtained; pt denies productive cough at this time. Mucinex twice daily. Incentive spirometer and flutter valve when off BiPAP. Pulmonology is consulted; appreciate Dr. Barajas's assistance. 11/02/2018-patient admitted with bilateral pneumonia. Most likely community- acquired pneumonia. Most likely may be gram-positive organisms. Blood cultures positive for staph hominis which may be contaminant. Blood cultures are negativ e so far. Plan is to continue the antibiotic therapy, as needed and scheduled nebulizations. Patient is presently not on antibiotics afebrile with a temperature of 98.2. 11/03/2018-patient was admitted with bilateral pneumonia most likely community- acquired pneumonia. May be likely due to gram-positive organisms. Blood cultures initially positive for staph hominis possible contaminant. Follow-up blood cultures are negative. Presently off the antibiotic therapy and she is receiving as needed and scheduled nebulizations. T-max is 97.3. (3) COPD (chronic obstructive pulmonary disease) Qualifiers: Emphysema type: unspecified Is this a current diagnosis for this admission?: Yes Plan: No wheezing; no indications for steroids at this time. Management as above. 11/02/2018-on examination chest bilateral entry was decreased no wheezing no crepitations. Plan is to continue the present management. 11/03/2018-patient has history of COPD on examination bilateral entry was decreased but no wheezing no crepitations. (4) History of atrial fibrillation Is this a current diagnosis for this admission?: Yes Plan: Rate controlled; continue home medication regiment. Patient is not chronically anticoagulated. [id number] score 5; 7.2% yearly CVA risk However, would advise against chronic anticoaglation at this time due to ble ed/fall risk. Recommend follow-up discussion with patient's established manufacturing assembler. 11/02/2018-patient has a history of atrial fibrillation not on chronic anticoagulation. Patient is a high risk for further falls and possible bleed. 11/03/2018-patient has history of chronic paroxysmal atrial fibrillation. Because of high risk for fall, bleed she is not on anticoagulation. (5) SIRS (systemic inflammatory response syndrome) Is this a current diagnosis for this admission?: Yes Plan: Evaluation management as above. (6) Morbid obesity Is this a current diagnosis for this admission?: No - Time Time Spent with patient: 15-24 minutes Medications reviewed and adjusted accordingly: Yes Anticipated discharge: SNF
--- NOTE | 2018-11-03 14:43 | RADIOLOGY REPORT (SQ) ---
EXAM DESCRIPTION: CHEST SINGLE VIEW COMPLETED DATE/TIME: 11/03/2018 1:40 pm REASON FOR STUDY: pneumonia COMPARISON: 11/01/2018 EXAM PARAMETERS: NUMBER OF VIEWS: One view. TECHNIQUE: Single frontal radiographic view of the chest acquired. RADIATION DOSE: NA LIMITATIONS: None. FINDINGS: LUNGS AND PLEURA: Persistent dense left retrocardiac consolidation. Patchy bilateral inte rstitial opacities, stable. No significant pleural effusion. No pneumothorax. MEDIASTINUM AND HILAR STRUCTURES: No discrete mass. HEART AND VASCULAR STRUCTURES: Enlarged cardiac silhouette, stable. Aortic atherosclerosis. BONES: No acute findings. HARDWARE: Right internal jugular central venous catheter tip overlies SVC. OTHER: No other significant finding. IMPRESSION: Persistent dense left basilar consolidation possibly atelectasis or infection. TECHNICAL DOCUMENTATION: JOB ID: [id number] [employer]- All Rights Reserved Reading location - IP/workstation name: [email or web address]
[2018-11-03] MEDS: LEVALBUTEROL HCL NEB 0.63 MG/3 ML AMPUL NEB PRN (16:35)
[2018-11-03] MEDS: OXYCODONE-ACETAMINOPHEN 5-325 MG TABLET PO PRN (19:01)
[2018-11-03] MEDS: ALPRAZOLAM 0.5 MG TABLET PO PRN (22:05)
[2018-11-03] MEDS: LOSARTAN POTASSIUM 50 MG TABLET PO SCH (22:05)
[2018-11-03] MEDS: SIMVASTATIN 40 MG TABLET PO SCH (22:05)
[2018-11-03] MEDS: INSULIN GLARGINE,HUM.REC.ANLOG 1,000 UNIT/10 ML VIAL SUBCUT SCH (22:07)
[2018-11-04] MEDS: LEVALBUTEROL HCL NEB 0.63 MG/3 ML AMPUL NEB PRN (02:37)
[2018-11-04] MEDS: LEVOTHYROXINE SODIUM 0.075 MG TABLET PO SCH (05:25)
[2018-11-04] MEDS: HEPARIN SOD (PORCINE) 5,000 UNIT/ML 1 ML SYRINGE SUBCUT SCH ×2 (05:27→13:13)
[2018-11-04] MEDS: ALPRAZOLAM 0.5 MG TABLET PO PRN (08:41)
[2018-11-04] MEDS: LEVALBUTEROL HCL NEB 1.25 MG/3 ML AMPUL NEB SCH (09:28)
[2018-11-04] MEDS: IPRATROPIUM BROMIDE 0.02% NEB 0.5 MG/2.5 ML AMPUL NEB SCH (09:28)
[2018-11-04] MEDS: LACTULOSE SYRUP 20 GM/30 ML UDCUP PO SCH ×2 (10:26→17:38)
[2018-11-04] MEDS: NA PHOS,M-B/NA PHOS,DI-BA (ADULT) 133 ML ENEMA PR SCH ×2 (10:26→17:38)
[2018-11-04] MEDS: PANTOPRAZOLE SODIUM 40 MG TABLET.DR PO SCH (10:28)
[2018-11-04] MEDS: FERROUS SULFATE 325 MG TABLET PO SCH ×2 (10:29→18:13)
[2018-11-04] MEDS: FUROSEMIDE 40 MG TABLET PO SCH (10:29)
[2018-11-04] MEDS: GUAIFENESIN 600 MG TABLET.SA PO SCH (10:29)
[2018-11-04] MEDS: FLUTICASONE NASAL SPRAY 50 MCG/SPRY 120 SPRAY/16 GM NASL SCH (10:29)
[2018-11-04] MEDS: CLOPIDOGREL BISULFATE 75 MG TABLET PO SCH (11:45)
--- NOTE | 2018-11-04 12:04 | PDOC TRANSFER SUMMARY ---
General - Admit/Disc Date/PCP Admission Date/Primary Care Provider: 10/25/18 22:29 MAJOR WORKMAN MD Discharge Date: 11/04/18 - Discharge Diagnosis (1) Acute respiratory failure with hypoxia Is this a current diagnosis for this admission?: Yes Summary: Improved; now maintaining oxygen saturations on NC most of the day w/ BiPAP when asleep. Patient is Home O2 dependant at 2lpm Secondary to bilateral pneumonia in the setting of COPD. Continue supplemental oxygen and BiPAP support as needed to maintain saturations >89%; continue weaning attempts. Continue scheduled and as needed nebulizer treatments. Pulmonology is consulted; appreciate Dr. Barajas's assistance. Patient and inform me that she has been told she requires CPAP but has not completed sleep study; this may inhibit ability to entirely wean from BiPAP at night. 11/02/[id number]-pcqm-old female admitted with acute respiratory failure with hypoxia most likely secondary to bilateral pneumonia. Pulmonary consult was requested. Pulse ox is 99% on 35% oxygen on BiPAP this morning. At the time of my examination patient is on 2 L oxygen pulse ox is 97%. Plan is to continue scheduled and as needed nebulizer treatments. 11/03/[id number]-prgf-old female admitted with acute on chronic respiratory failure with hypoxia pulse ox is 98% on 2 L this morning. Presently on a scheduled and as needed nebulizer treatments. Recently not on antibiotics. Afebrile. With T-max of 97.3. Blood cultures are negative. 11/04/2018-this elderly female admitted with acute on chronic respiratory failure with hypoxia pulse ox is 97% on 2 L today. Presently on scheduled and as needed nebulizations. Patient is off the antibiotics. Blood cultures are negative. T-max is 98.6. Comfortably in the bed on calling woke up and communicating okay. Chest bilateral entry was decreased no wheezing no crepitations are present. Patient is going to [facility] today. (2) Bilateral pneumonia Is this a current diagnosis for this admission?: Yes Summary: Improved. Repeat chest x-ray is stable; patchy opacities, overall improved from time of admission. Supplemental oxygen, BiPAP, and nebulizer treatments. Have discontinued IV cefepime and Vancomycin. Blood cultures is a contaminant (staph hominis 1/4 bottles). Sputum culture has not been obtained; pt denies productive cough at this time. Mucinex twice daily. Incentive spirometer and flutter valve when off BiPAP. Pulmonology is consulted; appreciate Dr. Barajas's assistance. 11/02/2018-patient admitted with bilateral pneumonia. Most likely community- acquired pneumonia. Most likely may be gram-positive organisms. Blood cultures positive for staph hominis which may be contaminant. Blood cultures are negative so far. Plan is to continue the antibiotic therapy, as needed and scheduled nebulizations. Patient is presently not on antibiotics afebrile with a temperature of 98.2. 11/03/2018-patient was admitted with bilateral pneumonia most likely community- acquired pneumonia. May be likely due to gram-positive organisms. Blood cultures initially positive for staph hominis possible contaminant. Follow-up blood cultures are negative. Presently off the antibiotic therapy and she is receiving as needed and scheduled nebulizations. T-max is 97.3. 11/04/2018-patient admitted with bilateral pneumonia most likely community- acquired pneumonia. Most likely organisms probably gram positive. Blood cultures and sputum cultures are negative. And is off the antibiotic for the last several days. Afebrile. (3) COPD (chronic obstructive pulmonary disease) Is this a current diagnosis for this admission?: Yes Summary: No wheezing; no indications for steroids at this time. Management as above. 11/02/2018-on examination chest bilateral entry was decreased no wheezing no crepitations. Plan is to continue the present management. 11/03/2018-patient has history of COPD on examination bilateral entry was dec reased but no wheezing no crepitations. 11/04/2018-patient has history of COPD on examination bilateral entry was decreased no wheezing no crepitations. COPD exacerbation is resolved. (4) History of atrial fibrillation Is this a current diagnosis for this admission?: Yes Summary: Rate controlled; continue home medication regiment. Patient is not chronically anticoagulated. [id number] score 5; 7.2% yearly CVA risk However, would advise against chronic anticoaglation at this time due to bleed/fall risk. Recommend follow-up discussion with patient's established youth coordinator. 11/02/2018-patient has a history of atrial fibrillation not on chronic anticoagulation. Patient is a high risk for further falls and possible bleed. 11/03/2018-patient has history of chronic paroxysmal atrial fibrillation. Because of high risk for fall, bleed she is not on anticoagulation. 11/04/2018-patient has history of chronic paroxysmal atrial fibrillation not on anticoagulation because of high risk of falls and that may lead to bleed. (5) SIRS (systemic inflammatory response syndrome) Is this a current diagnosis for this admission?: Yes Summary: 11/04/2018-patient was treated for SIRS. Which was resolved. (6) Morbid obesity Is this a current diagnosis for this admission?: No - Additional Information Resuscitation Status: Full Code Discharge Diet: Cardiac Discharge Activity: Balance Activity w/Rest Prescriptions: Alprazolam [Xanax] 0.5 mg PO BIDP PRN #10 tablet PRN Reason: Anxiety Oxycodone HCl/Acetaminophen [Percocet 7.5-325 mg Tablet] 1 tab PO Q8HP PRN #10 tablet PRN Reason: For Pain Home Medications: Estropipate [Ogen] 1.5 mg PO MOWEFR@1000 10/26/18 Ferrous Sulfate [Feosol 325 mg Tablet] 325 mg PO BID 10/26/18 Fluticasone Propion/Salmeterol [Wixela 250-50 Inhub] 1 puff IH Q12 10/26/18 Furosemide [Lasix 80 mg Tablet] 80 mg PO DAILY 10/26/18 Insulin Detemir [Levemir] 12 units SQ DAILY 10/26/18 Ipratropium/Albuterol Sulfate [Duoneb 3 ml Ampul] 1 vial NEB Q6HP PRN 10/26/18 Levothyroxine Sodium [Synthroid 0.075 mg Tablet] 0.075 mg PO Q6AM 10/26/18 Nitroglycerin [Nitrostat 0.4 mg (1/150 Gr) Tabs 25/Bottle] 0.4 mg SL Q5MP PRN 10/26/18 [place]-3 Acid Ethyl Esters [Lovaza 1 gm Capsule] 1 gm PO DAILY 10/26/18 Pantoprazole Sodium [Protonix [address] Tablet] 40 mg PO DAILY 10/26/18 Promethazine HCl [Phenergan 25 mg Tablet] 25 mg PO TIDP PRN 10/26/18 Simvastatin [Zocor 40 mg Tablet] 40 mg PO QHS 10/26/18 Telmisartan [Micardis 80 mg Tablet] 80 mg PO QHS 10/26/18 Alprazolam [Xanax] 0.5 mg PO BIDP PRN #10 tablet 11/04/18 Oxycodone HCl/Acetaminophen [Percocet 7.5-325 mg Tablet] 1 tab PO Q8HP PRN #10 tablet 11/04/18 History of Present Illness Admission Date/PCP: 10/25/18 22:29 MAJOR WORKMAN MD History of Present Illness: FARHEEN AGUILAR is a 83 year old female 83 year old female who presented to the emergency room with acute chest pain. She admits that she developed chest pain and nausea earlier on the day of admission after feeling "not well" (generalized weakness, fatigue and malaise) for the last 3 days. The pain was a dull pressure of moderate intensity in the lower sternal and upper abdominal region without radiation and had its onset s hortly after eating a sticky bun. The pain was accompanied by one episode of vomiting occurring shortly after the onset of the pain, worsening of her chronic dyspnea and a nonproductive cough. She acknowledges numerous prior similar episodes related to pneumonias. She has not identified any aggravating or ameliorating factors for her chest pain. In the emergency room she was found to have normal cardiac enzymes and a EKG that showed no evidence of acute ischemia or myocardial injury. A CAT scan of her chest showed bilateral pneumonia and she was also found to have significant hypoxia requiring supplemental oxygen. Patient had significant nausea and vomiting preventing her from being placed on BiPAP and subsequently she was placed to the ICU for further evaluation and treatment. Hospital Course Hospital Course: 11/04/[id number]-jtdt-old female admitted with acute on chronic respiratory failure with hypoxia initial x-ray suggestive of bilateral pneumonia. Community- acquired pneumonia she is treated with antibiotic therapy BiPAP therapy blood cultures came back negative now the oxygen requirements are at baseline. No complications during the hospital stay. As per the family request patient is going to the [facility] today. Physical Exam Vital Signs: Temp Pulse Resp BP Pulse Ox 98.6 F 87 18 137/54 H 100 11/03/18 23:52 11/04/18 09:28 11/04/18 09:28 11/03/18 23:52 11/04/18 09:28 Pulse Oximeter Continuous Start: 10/29/18 09:39 Freq: RTQ4 Status: Active Protocol: Document 11/04/18 09:28 [facility] (Rec: 11/04/18 09:51 [facility] [id number]) Pulse Oximetry Assessment Oxygen Saturation (92-100) 100 Oxygen Flow Rate (L/min) 3 Oxygen Delivery Method Nasal Cannula Equipment Usage Equipment in Use Continuous SpO2 Machine # 32 Intake & Output 11/03/18 11/04/18 11/05/18 06:59 06:59 06:59 Intake Total 2040 2152 Output Total 1559 6265 Balance 490 -273 Weight 102.9 kg 102.9 kg General appearance: PRESENT: no acute distress, obese Head exam: PRESENT: atraumatic Eye exam: PRESENT: PERRLA Mouth exam: PRESENT: moist, tongue midline Teeth exam: PRESENT: poor dentation Neck exam: ABSENT: carotid bruit, JVD, lymphadenopathy, thyromegaly Respiratory exam: PRESENT: decreased breath sounds Cardiovascular exam: PRESENT: irregular rhythm, systolic murmur, tachycardia GI/Abdominal exam: PRESENT: normal bowel sounds, soft. ABSENT: distended, guarding, mass, organolmegaly, rebound, tenderness Rectal exam: PRESENT: deferred Extremities exam: PRESENT: full ROM. ABSENT: calf tenderness, clubbing, pedal edema Neurological exam: PRESENT: alert, awake, oriented to person, oriented to place, oriented to time, oriented to situation, CN II-XII grossly intact. ABSENT: motor sensory deficit Psychiatric exam: PRESENT: appropriate affect, normal mood. ABSENT: homicidal ideation, suicidal ideation Results Laboratory Results: 11/03/18 05:05 11/03/18 05:05 10/25/18 10/25/18 10/26/18 19:27 21:55 04:00 Creatine Kinase 46 CK-MB (CK-2) Troponin I Cancelled < 0.012 10/26/18 10/26/18 10/26/18 04:05 10:40 10:40 Creatine Kinase 48 CK-MB (CK-2) 0.83 0.86 Troponin I 0.049 0.061 10/26/18 10/26/18 10/29/18 16:35 16:35 06:44 Creatine Kinase 47 CK-MB (CK-2) 0.86 Troponin I 0.075 0.039 Impressions: Abdomen/Pelvis CTA 10/25/18 17:03 IMPRESSION: This exam is nondiagnostic for aorta is suggested dissection because no IVC could not be administered due to infiltration of the IV site. There is slight dilatation of the proximal aortic arch. Extensive consolidations involve both lungs. Additional findings described above. Chest/Abdomen CTA 10/25/18 17:03 IMPRESSION: This exam is nondiagnostic for aorta is suggested dissection because no IVC could not be administered due to infiltration of the IV site. There is slight dilatation of the proximal aortic arch. Extensive consolidations involve both lungs. Additional findings described above. Chest X-Ray 11/03/18 06:00 IMPRESSION: Persistent dense left basilar consolidation possibly atelectasis or infection. Transfer Plan - Time Spent with Patient Time spent with patient: Greater than 30 Minutes Qualifiers - * PATIENT BEING DISCHARGED WITH ANY OF THE FOLLOWING DIAGNOSIS: No VTE patient discharged on overlapping Therapy?: No Acute Heart Failure Is this a Heart Failure Patient?: No Plan Discharge Plan: Patient is going to [facility] today. Time Spent: Greater than 30 Minutes
[2018-11-04] MEDS: OXYCODONE-ACETAMINOPHEN 5-325 MG TABLET PO PRN (16:42)
[2018-11-04] MEDS ORDERED: SIMETHICONE 80 MG TAB.CHEW PO PRN (17:38)
[2018-11-04 18:50] VITALS: BP 102/79
== END 2018-11-04 19:55 | DRG 193 ==
LOC: ER 16:15 → EH 22:29 → ICU 10-26 00:35 → 4S 10-27 17:23
PROVIDERS: ADMIT Emergency Medicine; ATTEND Emergency Medicine
PROC: 02HV33Z Insertion of Infusion Device into Superior Vena Cava, Percutaneous Approach (ICD-10-PCS; principal; 2018-10-25)
DX: J18.1 Lobar pneumonia, unspecified organism (principal); J96.21 Acute and chronic respiratory failure with hypoxia; J90 Pleural effusion, not elsewhere classified; J44.1 Chronic obstructive pulmonary disease with (acute) exacerbation; Z68.41 Body mass index [BMI] 40.0-44.9, adult; I48.91 Unspecified atrial fibrillation; I50.9 Heart failure, unspecified; I11.0 Hypertensive heart disease with heart failure; E78.00 Pure hypercholesterolemia, unspecified; I35.0 Nonrheumatic aortic (valve) stenosis; E03.9 Hypothyroidism, unspecified; E11.8 Type 2 diabetes mellitus with unspecified complications; F41.8 Other specified anxiety disorders; E66.01 Morbid (severe) obesity due to excess calories; I25.2 Old myocardial infarction; Z99.81 Dependence on supplemental oxygen; Z79.01 Long term (current) use of anticoagulants; Z79.4 Long term (current) use of insulin; Z79.51 Long term (current) use of inhaled steroids; Z79.899 Other long term (current) drug therapy
CPT/HCPCS: 36415; 36600; 51702; 71045; 71275; 74174; 80048; 80053; 80202; 81001; 82550; 82553; 82803; 82962; 83036; 83605; 83735; 84439; 84443; 84481; 84484; 85025; 85027; 85610; 85730; 87040; 87077; 87086; 87186; 93005; 93010; 94640; 94660; 94667; 94668; 94762; 94799; 96365; 96375; 96376; 99291; C1751; J0692; J1644; J1815; J1956; J2185; J2405; J2543; J2765; J3370; J3475; J3480; J3490; J7030; J7060; J7120; J7614; S0028

== ENCOUNTER 2019-10-24 05:21 | Inpatient (IN) | payer MEDICARE ==
[2019-10-24] MEDS ORDERED: METOPROLOL TARTRATE PF/INJ 5 MG/5 ML SDV IV ONE ×2 (05:26→05:27)
[2019-10-24] MEDS ORDERED: FUROSEMIDE INJ/PF 20 MG/2 ML SDV IV ONE (05:44)
--- NOTE | 2019-10-24 05:54 | ER Document Report ---
Entered by FRANCISCO JAVIER BRONSON SCRIBE 10/24/19 0542 Acting as scribe for:BRANDON GILES IV, MD ED Respiratory Problem - General Mode of Arrival: Medic Information source: Emergency Med Personnel TRAVEL OUTSIDE OF THE [place] IN LAST 30 DAYS: No <BRANDON GILES IV - Last Filed: 10/24/19 05:54> <CHEO UMANZOR - Last Filed: 10/24/19 15:48> - General Mode of Arrival: Medic <WILMER ERAZO - Last Filed: 10/25/19 06:15> - General Chief Complaint: Respiratory Distress Stated Complaint: RESPIRATORY DISTRESS Notes: This 84 year old female patient brought in by EMS from home presents to the ED today with complaints of respiratory distress that occurred just prior to arrival. EMS reports that they placed the patient on CPAP with no improvement in O2 sats. EMS states that the patient became obtunded in the truck, so they started assisted ventilations via BVM. EMS reports a history of CHF, A fib, and type 2 diabetes mellitus. Additional pertinent past medical history includes CAD, FL, HTN, HLD, COPD, PNA, bronchitis, and respiratory failure. (BRANDON ROSS IV) - Related Data Allergies/Adverse Reactions: aspirin [Aspirin] Allergy (Verified 10/24/19 13:08) codeine Allergy (Verified 10/24/19 13:08) erythromycin base [Erythromycin Base] Allergy (Verified 10/24/19 13:08) ibuprofen [From Motrin] Allergy (Verified 10/24/19 13:08) morphine [Morphine] Allergy (Verified 10/24/19 13:08) Sulfa (Sulfonamide Antibiotics) Allergy (Verified 10/24/19 13:08) Past Medical History - General Information source: Emergency Med Personnel, COUNTS INCLUDE 234 BEDS AT THE [facility] Records - Social History Smoking Status: Unknown if Ever Smoked Cigarette use (# per day): No Chew tobacco use (# tins/day): No Smoking Education Provided: No Frequency of alcohol use: None Drug Abuse: None Lives with: Spouse/Significant other Family History: Reviewed & Not Pertinent, COPD, Hypertension, Malignancy Patient has suicidal ideation: No Patient has homicidal ideation: No - Past Medical History Cardiac Medical History: Reports: Hx Atrial Fibrillation, Hx Congestive Heart Failure, Hx Coronary Artery Disease, Hx Heart Attack - non-stemi, Hx Hypercholesterolemia, Hx Hypertension Pulmonary Medical History: Reports: Hx Bronchitis, Hx COPD, Hx Pneumonia - Recurrent, Hx Respiratory Failure, Hx Sleep Apnea - Suspected. The patient is to go for a sleep study as outpatient. Endocrine Medical History: Reports: Hx Diabetes Mellitus Type 2, Hx Hypothyroidism Musculoskeletal Medical History: Reports Hx Arthritis Psychiatric Medical History: Reports: Hx Depression - anxiety Past Surgical History: Reports: Hx Cardiac Catheterization, Hx Cholecystectomy, Hx Coronary Stent, Hx Hysterectomy, Hx Neurologic Surgery - Neck 2011, Other - Valvuloplasty at [facility] - Immunizations Hx Diphtheria, Pertussis, Tetanus Vaccination: Yes Hx Pneumococcal Vaccination: 07/09/10 <BRANDON GILES IV - Last Filed: 10/24/19 05:54> Review of Systems - Review of Systems -: Yes ROS unobtainable due to patient's medical condition <BRANDON GILES IV - Last Filed: 10/24/19 05:54> Physical Exam - General General appearance: Other - Disoriented - HEENT Head: Normocephalic, Atraumatic Eyes: Normal Pupils: PERRL - Respiratory Respiratory status: Respiratory distress - on BiPAP Chest status: Nontender Breath sounds: Rhonchi - Bilaterally Chest palpation: Normal - Cardiovascular Rhythm: Regular, Tachycardia Heart sounds: Normal auscultation Murmur: No Friction rub: No Gallop: None auscultated - Abdominal Inspection: Normal Distension: No distension Bowel sounds: Normal Tenderness: Nontender - Abdomen soft Organomegaly: No organomegaly - Back Back: Normal, Nontender - Extremities General upper extremity: Normal inspection General lower extremity: Normal inspection - Neurological Neuro grossly intact: Yes - Psychological Associated symptoms: Other - Unable to assess due to patient's medical condition - Skin Skin Temperature: Warm Skin Moisture: Dry Skin Color: Normal <BRANDON GILES IV - Last Filed: 10/24/19 05:54> - Vital signs Vitals: Resp Pulse Ox 30 H 82 L 10/24/19 05:21 10/24/19 05:21 Course - Laboratory Result Diagrams: 10/24/19 05:19 10/24/19 05:19 - Transfer of Care Care transferred to following provider: Dr. Erazo <BRANDON GILES IV - Last Filed: 10/24/19 05:54> - Laboratory Result Diagrams: 10/24/19 05:19 10/24/19 05:19 <CHEO UMANZOR - Last Filed: 10/24/19 15:48> - Laboratory Result Diagrams: 10/24/19 05:19 10/24/19 05:19 - Diagnostic Test Radiology reviewed: Image reviewed, Reports reviewed - Chest x-ray: Moderate bilateral airspace disease in the inferior hemithoraces, likely pulmonary edema. - EKG Interpretation by Me Rate: Tachycardia - Sinus tachycardia rate of 132, left bundle branch block. <WILMER ERAZO - Last Filed: 10/25/19 06:15> - Re-evaluation Re-evalutation: 10/24/19 15:48 Patient was in the emergency department awaiting transport to [facility]. In short this patient presented with respiratory failu re, UTI, and NSTEMI. Patient stable on BiPAP. I interviewed and evaluated the patient. She denies any acute pain. She denies any questions or concerns. Vitals reviewed. Patient is stable for transport. (CHEO UMANZOR) 10/24/19 07:05 I have assumed care of this patient from Dr. Giles, acute on chronic respiratory failure, UTI, chest x-ray which reveals moderate bilateral airspace disease and pulmonary edema. Patient will need to be admitted to the hospital for further management, respiratory failure. She is given Lasix at 20 mg, additional 40 mg is given in the emergency department. Patient is given Rocephin 1 g IV for significant pyuria. 10/24/19 07:42 10/24/19 08:14 Repeat electrocardiogram performed reveals sinus rhythm, rate of 78, first- degree AV block and left bundle branch block. Review of previous x-rays revealed that she has had a left bundle branch block in the past. 10/24/19 08:46 I have discussed the patient with the hospitalist, Dr. Segura will admit the patient for further evaluation and treatment. (WILMER ERAZO) - Vital Signs Vital signs: Temp Pulse Resp BP Pulse Ox 100.9 F H 24 H 145/64 H 97 10/24/19 15:55 10/24/19 15:37 10/24/19 15:37 10/24/19 15:37 - Laboratory Laboratory results interpreted by me: 10/24/19 10/24/19 10/24/19 05:19 05:19 05:19 WBC 13.4 H Hgb 11.9 L Hct 35.9 L Band Neutrophils % 1 L Abs Lymphs (Manual) 5.0 H Carbonic Acid ABG pH ABG pCO2 ABG pO2 ABG HCO3 ABG Total CO2 ABG O2 Saturation Sodium 136.9 L Potassium 5.4 H Chloride 94 L Anion Gap 20 H BUN 59 H Creatinine 1.51 H Est GFR ( Amer) 40 L Est GFR (MDRD) Non-Af 33 L Glucose 336 H POC Glucose Lactic Acid 9.2 H Alkaline Phosphatase 129 H NT-Pro-B Natriuret Pep Urine Protein Urine Blood Ur Leukocyte Esterase 10/24/19 10/24/19 10/24/19 05:59 06:18 07:35 WBC Hgb Hct Band Neutrophils % Abs Lymphs (Manual) Carbonic Acid 1.72 H ABG pH 7.30 L ABG pCO2 57.3 H ABG pO2 71.9 L ABG HCO3 27.5 H ABG Total CO2 29.3 H ABG O2 Saturation 92.6 L Sodium Potassium Chloride Anion Gap BUN Creatinine Est GFR ( Amer) Est GFR (MDRD) Non-Af Glucose POC Glucose Lactic Acid Alkaline Phosphatase NT-Pro-B Natriuret Pep 881 H Urine Protein 100 H Urine Blood SMALL H Ur Leukocyte Esterase MODERATE H 10/24/19 10/24/19 08:21 08:22 WBC Hgb Hct Band Neutrophils % Abs Lymphs (Manual) Carbonic Acid ABG pH ABG pCO2 ABG pO2 ABG HCO3 ABG Total CO2 ABG O2 Saturation Sodium Potassium Chloride Anion Gap BUN Creatinine Est GFR ( Amer) Est GFR (MDRD) Non-Af Glucose POC Glucose 242 H Lactic Acid 2.5 H Alkaline Phosphatase NT-Pro-B Natriuret Pep Urine Protein Urine Blood Ur Leukocyte Esterase 10/24/19 08:03 I have reviewed laboratory data and used this information for the treatment decisions regarding the patient. (WILMER ERAZO) - EKG Interpretation by Me Additional EKG results interpreted by me: 10/24/19 05:52 EKG obtained on 10/24/2019 at 0528 hrs. was interpreted by this MD. Findings: Sinus tachycardia, rate 132, left bundle branch block is present, the left bundle branch block was seen on a prior EKG. ST segments are non-specific. Impression: Sinus tachycardia with left bundle branch block and nonspecific ST segments. (BRANDON GILES IV) Critical Care Note - Critical Care Note Total time excluding time spent on procedures (mins): 60 - Critical care time spent obtaining history from patient or surrogate, discussions with consultants, development of treatment plan with patient or surrogate, evaluation of patient's response to treatment, examination of patient, ordering and performing treatments and interventions, ordering and review of laboratory studies, re- evaluation of patient's condition, ordering and review of radiographic studies and review of old charts <WILMER ERAZO - Last Filed: 10/25/19 06:15> Discharge <BRANDON GILES IV - Last Filed: 10/24/19 05:54> <CHEO UMANZOR - Last Filed: 10/24/19 15:48> - Discharge Admitting Provider: Colton (Hospitalist) Unit Admitted: [facility] <WILMER ERAZO - Last Filed: 10/25/19 06:15> - Discharge Clinical Impression: Acute respiratory distress, KAYLA (acute kidney injury), Diabetes mellitus type 2 in obese, Acute and chronic respiratory failure with hypoxia, NSTEMI (non-ST elevated myocardial infarction) Acute exacerbation of CHF (congestive heart failure) Qualifiers: Heart failure type: unspecified Qualified Code(s): I50.9 - Heart failure, unspecified Urinary tract infection Qualifiers: Urinary tract infection type: site unspecified Hematuria presence: with hematuria Qualified Code(s): N39.0 - Urinary tract infection, site not specified Condition: Good Disposition: ADMITTED INPATIENT I personally performed the services described in the documentation, reviewed and edited the documentation which was dictated to the scribe in my presence, and it accurately records my words and actions.
[2019-10-24 06:08] LABS: HEMATOCRIT 35.9 % (36.0-47.0); HEMOGLOBIN 11.9 g/dL (12.0-15.5); MEAN CORPUSCULAR HEMOGLOBIN 30.6 pg (27.0-33.4); MEAN CORPUSCULAR HGB CONC 33.2 g/dL (32.0-36.0); MEAN CORPUSCULAR VOLUME 92 fl (80-97); PLATELET COUNT 311 10^3/uL (150-450); RED BLOOD COUNT 3.89 10^6/uL (3.72-5.28); RED CELL DISTRIBUTION WIDTH 13.4 % (11.5-14.0); WHITE BLOOD COUNT 13.4 10^3/uL (4.0-10.5)
[2019-10-24 06:11] LABS: APPEARANCE,URINE TURBID; BILIRUBIN,URINE NEGATIVE (NEGATIVE); COLOR,URINE YELLOW; GLUCOSE, URINE NEGATIVE (NEGATIVE); KETONES,URINE NEGATIVE (NEGATIVE); LEUKOCYTE ESTERASE,URINE MODERATE (NEGATIVE); NITRITE,URINE NEGATIVE (NEGATIVE); PROTEIN,URINE 100 mg/dL (NEGATIVE); URINE SPECIFIC GRAVITY 1.013; UROBILINOGEN,URINE NEGATIVE mg/dL (<2.0)
--- NOTE | 2019-10-24 06:12 | RADIOLOGY REPORT (SQ) ---
EXAM DESCRIPTION: X-ray single view chest. CLINICAL HISTORY: 84 years Female, respiratory distress COMPARISON: 10/24/2018 and 11/01/2018 TECHNIQUE: Single portable x-ray view of the chest performed on 10/24/2019 at 5:53 AM FINDINGS: There is moderate bilateral airspace disease greatest in the inferior hemithoraces. Findings may be due to edema or multifocal pneumonia. There is no evidence of a pneumothorax. The cardiac silhouette is stable and is prominent. The mediastinal contours are normal. No acute osseous abnormality is identified. No focal soft tissue abnormalities are seen. Lines and tubes: None. IMPRESSION: Moderate bilateral airspace disease greatest in the inferior hemithoraces which may be due to edema or multifocal pneumonia.
[2019-10-24 06:26] LABS: ABSOLUTE MONOCYTES # (MANUAL) 1.2 10^3/uL (0.1-1.4); BAND NEUTROPHILS % (MANUAL) 1 % (3-5); BASOPHILS % (MANUAL) 0 % (0-2); EOSINOPHILS % (MANUAL) 2 % (0-6); LYMPHOCYTES % (MANUAL) 37 % (13-45); MONOCYTES % (MANUAL) 9 % (3-13); SEGMENTED NEUTROPHILS % (MAN) 51 % (42-78); TOTAL CELLS COUNTED 100
[2019-10-24 06:27] LABS: OVALOCYTES SLIGHT; PLATELET COMMENT ADEQUATE; POIKILOCYTOSIS SLIGHT; SCHISTOCYTES SLIGHT; TOXIC GRANULATION SLIGHT; TOXIC VACUOLATION PRESENT
[2019-10-24 06:30] LABS: ALBUMIN 4.3 g/dL (3.5-5.0); ALKALINE PHOSPHATASE 129 U/L (38-126); ASPARTATE AMINO TRANSFERASE 30 U/L (14-36); BILIRUBIN,DIRECT 0.1 mg/dL (0.0-0.4); BILIRUBIN,TOTAL 0.4 mg/dL (0.2-1.3); BLOOD UREA NITROGEN 59 mg/dL (7-20); CALCIUM 9.9 mg/dL (8.4-10.2); CARBON DIOXIDE 23 mmol/L (22-30); CHLORIDE 94 mmol/L (98-107); GLUCOSE 336 mg/dL (75-110); POTASSIUM 5.4 mmol/L (3.6-5.0); TOTAL PROTEIN 7.9 g/dL (6.3-8.2)
[2019-10-24 06:36] LABS: ANION GAP 20 (5-19)
[2019-10-24 07:03] LABS: ARTERIAL BLOOD BASE EXCESS 0.2 mmol/L; ARTERIAL BLOOD H2CO3 1.72 mmol/L (1.05-1.35); ARTERIAL BLOOD HCO3 27.5 mmol/L (20-24); ARTERIAL BLOOD O2 SATURATION 92.6 % (94-98); ARTERIAL BLOOD PCO2 57.3 mmHg (35-45); ARTERIAL BLOOD PO2 71.9 mmHg (80-100); ARTERIAL BLOOD TOTAL CO2 29.3 mmol/L (21-25)
[2019-10-24] MEDS ORDERED: CEFTRIAXONE INJ 1000 MG VIAL IV ONE (07:03)
[2019-10-24 07:04] LABS: ARTERIAL BLOOD FIO2 100%
--- NOTE | 2019-10-24 07:08 | EKG REPORT ---
SEVERITY:- ABNORMAL ECG - SINUS TACHYCARDIA VS A FLUTTER WITH 2:1 CONDUCTION, VS SLOW VTACH LEFT BUNDLE BRANCH BLOCK REPEAT EKG AFTER INTERVENTION : Confirmed by: Francisco J Ferrer 24-Oct-2019 07:07:17
[2019-10-24] MEDS ORDERED: CEFTRIAXONE 1 GM/D5W RTU 1 GM/50 ML RTUPB IV ONE (07:18)
[2019-10-24] MEDS ORDERED: INSULIN REG, HUMAN 100 UNIT/ML 3 ML VIAL (PYX) IV ONE ×2 (07:55→08:24)
[2019-10-24 08:22] LABS: TROPONIN I 1.74 ng/mL
[2019-10-24] MEDS ORDERED: HEPARIN SODIUM,PORCINE/D5W 25,000 UNIT/250 ML RTUINJ IV PRN (09:57)
[2019-10-24] MEDS ORDERED: HEPARIN SOD (PORCINE) 1,000 UNIT/ML 10 ML VIAL IV ONE (09:57)
[2019-10-24] MEDS ORDERED: ATORVASTATIN CALCIUM 40 MG TABLET PO ONE ×2 (09:58→12:19)
[2019-10-24] MEDS ORDERED: ONDANSETRON HCL INJ/PF 4 MG/2 ML SDV IV ONE (10:20)
[2019-10-24 11:12] LABS: INTERNATIONAL RATION (INR) 1.09; PARTIAL THROMBOPLASTIN TIME 27.4 SEC (23.5-35.8); PROTHROMBIN TIME 14.2 SEC (11.4-15.4)
[2019-10-24] MEDS ORDERED: CLOPIDOGREL BISULFATE 300 MG TABLET PO ONE (12:15)
--- NOTE | 2019-10-24 13:05 | PDOC H&P/TRANSFER SUM ---
General Admission Date/PCP: 10/24/19 09:03 BRYN NEWMAN - Transfer Diagnosis (1) NSTEMI (non-ST elevated myocardial infarction) Current Visit: Yes (2) Acute on chronic respiratory failure with hypoxia and hypercapnia Current Visit: No (3) Valvular heart disease Current Visit: No (4) Acute exacerbation of CHF (congestive heart failure) Current Visit: Yes (5) Urinary tract infection Current Visit: Yes - Transfer Medications Home Medications: Fluticasone Propion/Salmeterol [Wixela 250-50 Inhub] 1 puff IH Q12 10/26/18 Furosemide [Lasix 80 mg Tablet] 80 mg PO QAM 10/26/18 Insulin Detemir [Levemir] 12 units SQ DAILY 10/26/18 Levothyroxine Sodium [Synthroid 0.075 mg Tablet] 0.075 mg PO Q6AM 10/26/18 [place]-3 Acid Ethyl Esters [Lovaza 1 gm Capsule] 1 gm PO DAILY 10/26/18 Pantoprazole Sodium [Protonix [address] Tablet] 40 mg PO DAILY 10/26/18 Simvastatin [Zocor 40 mg Tablet] 40 mg PO QHS 10/26/18 Telmisartan [Micardis 80 mg Tablet] 80 mg PO QHS 10/26/18 Alprazolam 1 mg PO HSP PRN 10/24/19 Clopidogrel Bisulfate [Plavix 75 mg Tablet] 75 mg PO DAILY 10/24/19 Lubiprostone [Amitiza 24 Mcg Capsule] 24 mcg PO BID 10/24/19 Nystatin [Mycostatin Cream 15 gm] 1 applic TOP TID 10/24/19 Zinc Sulfate [Zinc-220 Capsule] 220 mg PO DAILY 10/24/19 Transfer Medications: Current Medications Heparin Sodium/Dextrose (Heparin Rtu 25,000 Unit/250 Ml D5w Premix) 25,000 unit in 250 mls @ 0 mls/hr IV CONTINUOUS PRN; Protocol PRN Reason: THIS MED IS NOT "PRN" Stop: 11/23/19 09:56 Last Admin: 10/24/19 10:39 Dose: 10 mls/hr, 10 mls/hr Documented by: - Allergies Allergies/Adverse Reactions: aspirin [Aspirin] Allergy (Verified 04/01/18 14:24) codeine Allergy (Verified 04/01/18 14:24) erythromycin base [Erythromycin Base] Allergy (Verified 04/01/18 14:24) ibuprofen [From Motrin] Allergy (Verified 04/01/18 14:24) morphine [Morphine] Allergy (Verified 04/01/18 14:24) Sulfa (Sulfonamide Antibiotics) Allergy (Verified 04/01/18 14:24) - Diet/Activity Discharge Diet: Cardiac, Diabetic History of Present Illness Admission Date/PCP: 10/24/19 09:03 BRYN NEWMAN Patient complains of: Difficulty breathing History of Present Illness: FARHEEN AGUILAR is a 84 year old female with an extensive cardiac history. She sees Dr. Humphrey Porter her business support with [facility]. She reports to me that over the last 5 to 6 days she has been experiencing increasing shortn ess of breath. She also noted some leg swelling. She is a poor historian and some of the history is from her . Evidently she was feeling poorly early this morning. She in fact summoned an ambulance and he was unaware of this until they arrived at the house. When he was working with her to assess her breathing she evidently complained of chest pain because he did give her sublingual nitroglycerin. He does have a pulse oximeter and on room air her pulse ox was 82%. She is using her CPAP regularly. She does have a history of multiple episodes of pneumonia in the past and she has been on a ventilator. Her cardiac history is significant for severe aortic stenosis with 2 attempts at valvuloplasty. She has history of coronary disease, diabetes, hyperlipidemia and hypertension. She has a history of chronic back pain with degenerative disc disease as well as hypothyroidism. On presentation to the emergency department she was placed on BiPAP with an FiO2 of 100%. Her oxygen saturations continue to improve and they have been slowly decreasing her FiO2. She was tachycardic. It was difficult to assess for any ST changes since she has a history of left bundle branch block and she was tachycardic with a rate in the 130s. Her first troponin was 1.74 with a second troponin of 6.98 white cell count was slightly elevated at 13.4. She was afebrile. Potassium was elevated at 5.4 with a BUN of 59 and a creatinine 1.51 and her glucose was 336. Specimen was hemolyzed and this would typically affect potassium. Regardless there is clearly a myocardial infarction. I was able to talk to Dr. Chung the on-call business support at [facility] as well as the patient's primary business support Dr. Porter and the hospitalist physician. After many discussions the patient, per her , does wish to be a full code. The patient's was familiar with hypercapnia and states that she has survived intervention such as intubation in the past. I spent some time on the phone regarding a more palliative approach and the patient as well as her wish to continue care at [facility]. The patient is currently on continuous heparin infusion. Her biggest complaint is nausea and vomiting. She denies chest pain. Her FiO2 has been tapered to 50% on BiPAP. [facility] has accepted the patient in transfer. Past Medical History Cardiac Medical History: Reports: Atrial Fibrillation, Congestive Heart Failure, Coronary Artery Disease, Myocardial Infarction - non-stemi, Hyperlipidema, Hypertension Pulmonary Medical History: Reports: Bronchitis, Chronic Obstructive Pulmonary Disease (COPD), Pneumonia - Recurrent, Respiratory Failure, Sleep Apnea - Suspected. The patient is to go for a sleep study as outpatient. Denies: Asthma Neurological Medical History: Denies: Seizures Endocrine Medical History: Reports: Diabetes Mellitus Type 2, Hypothyroidism Denies: Diabetes Mellitus Type 1, Hyperthyroidism GI Medical History: Denies: Cirrhosis, Hepatitis, Ulcerative Colitis Musculoskeltal Medical History: Reports: Arthritis Denies: Gout Skin Medical History: Denies: Eczema, Psoriasis Psychiatric Medical History: Reports: Depression - anxiety Traumatic Medical History: Denies: Gunshot Wound, Traumatic Brain Injury Hematology: Denies: Anemia, Bleeding Tendencies Infectious Medical History: Denies: Clostridium Difficile Past Surgical History Past Surgical History: Reports: Cardiac Catheterization, Cholecystectomy, Coronary Stent, Hysterectomy, Other - Valvuloplasty at [facility] Social History Information Source: Patient - Very limited, Relative - Spouse, Outside Facility Records Lives with: Spouse/Significant other Smoking Status: Unknown if Ever Smoked Frequency of Alcohol Use: None Hx Recreational Drug Use: No Drugs: None Hx Prescription Drug Abuse: No - Advance Directive Resuscitation Status: Full Code Surrogate healthcare decision maker:: The patient's is the dedicated decision maker and I did speak with him extensively today Family History Family History: Reviewed & Not Pertinent, COPD, Hypertension, Malignancy Parental Family History Reviewed: No - Unable to obtain from the patient due to cognitive state Children Family History Reviewed: No Sibling(s) Family History Reviewed.: No Review of Systems All systems: reviewed and no additional remarkable complaints except as stated Cardiovascular: PRESENT: dyspnea on exertion, edema, palpitations Gastrointestinal: PRESENT: nausea, vomiting Genitourinary: PRESENT: dysuria Neurological: PRESENT: confusion Physical Exam Vital Signs: Temp Pulse Resp BP Pulse Ox 98.2 F 22 H 140/53 H 98 10/24/19 06:02 10/24/19 11:30 10/24/19 10:46 10/24/19 11:30 Intake & Output 10/23/19 10/24/19 10/25/19 06:59 06:59 06:59 Intake Total 50 Output Total 175 Balance -125 Weight 89.3 kg General appearance: PRESENT: cooperative - Cooperation is limited due to hypercapnia, obese, well-developed, other - Moderate to severe distress Head exam: PRESENT: atraumatic, normocephalic Mouth exam: PRESENT: other - BiPAP mask in place Respiratory exam: PRESENT: decreased breath sounds - At bases, prolonged expiratory phas, rales, tachypnea, other - BiPAP dependent. ABSENT: wheezes Cardiovascular exam: PRESENT: RRR, +S1, +S2, systolic murmur GI/Abdominal exam: PRESENT: diminished bowel sounds, distended - Protuberant abdomen, soft, tenderness - Winces with palpation to the abdomen.. ABSENT: guarding Rectal exam: PRESENT: deferred Extremities exam: PRESENT: +1 edema Neurological exam: PRESENT: awake, oriented to person. ABSENT: alert - Poor cognition likely due to hypercapnia Psychiatric exam: PRESENT: anxious, appropriate affect - Affect reflects her serious illness. ABSENT: agitated Results Laboratory Results: 10/24/19 05:19 10/24/19 05:19 10/24/19 10/24/19 10/24/19 05:19 05:19 05:19 WBC 13.4 H RBC 3.89 Hgb 11.9 L Hct 35.9 L MCV 92 MCH 30.6 MCHC 33.2 RDW 13.4 Plt Count 311 Seg Neutrophils % Not Reportable Carbonic Acid HCO3/H2CO3 Ratio ABG pH ABG pCO2 ABG pO2 ABG HCO3 ABG O2 Saturation ABG Base Excess FiO2 Sodium 136.9 L Potassium 5.4 H Chloride 94 L Carbon Dioxide 23 Anion Gap 20 H BUN 59 H Creatinine 1.51 H Est GFR ( Amer) 40 L Glucose 336 H Lactic Acid 9.2 H Calcium 9.9 Total Bilirubin 0.4 AST 30 Alkaline Phosphatase 129 H Total Protein 7.9 Albumin 4.3 Urine Color Urine Appearance Urine pH Ur Specific [place] Urine Protein Urine Glucose (UA) Urine Ketones Urine Blood Urine Nitrite Ur Leukocyte Esterase Urine WBC (Auto) Urine RBC (Auto) 10/24/19 10/24/19 10/24/19 05:59 06:18 08:22 WBC RBC Hgb Hct MCV MCH MCHC RDW Plt Count Seg Neutrophils % Carbonic Acid 1.72 H HCO3/H2CO3 Ratio 15:1 ABG pH 7.30 L ABG pCO2 57.3 H ABG pO2 71.9 L ABG HCO3 27.5 H ABG O2 Saturation 92.6 L ABG Base Excess 0.2 FiO2 100% Sodium Potassium Chloride Carbon Dioxide Anion Gap BUN Creatinine Est GFR ( Amer) Glucose Lactic Acid 2.5 H Calcium Total Bilirubin AST Alkaline Phosphatase Total Protein Albumin Urine Color YELLOW Urine Appearance TURBID Urine pH 5.0 Ur Specific [place] 1.013 Urine Protein 100 H Urine Glucose (UA) NEGATIVE Urine Ketones NEGATIVE Urine Blood SMALL H Urine Nitrite NEGATIVE Ur Leukocyte Esterase MODERATE H Urine WBC (Auto) >182 Urine RBC (Auto) 57 10/24/19 10/24/19 10/24/19 05:19 06:50 07:35 Troponin I Cancelled Cancelled 1.740 NT-Pro-B Natriuret Pep Cancelled Cancelled 881 H 10/24/19 10:35 Troponin I 6.980 NT-Pro-B Natriuret Pep Impressions: Chest X-Ray 10/24/19 05:27 IMPRESSION: Moderate bilateral airspace disease greatest in the inferior hemithoraces which may be due to edema or multifocal pneumonia. Assessment & Plan - Time Time Spent: Greater than 70 Minutes Medications reviewed and adjusted accordingly: Yes Anticipated dischagre: Jorge Thakkar Within: within 24 hours
[2019-10-24] MEDS ORDERED: PROMETHAZINE HCL INJ 25 MG/1 ML VIAL IV ONE (13:07)
--- NOTE | 2019-10-24 14:17 | EKG REPORT ---
SEVERITY:- ABNORMAL ECG - SINUS RHYTHM FIRST DEGREE AV BLOCK LEFT BUNDLE BRANCH BLOCK : Confirmed by: Emily Bullard MD 24-Oct-2019 14:16:51
[2019-10-24] MEDS ORDERED: ACETAMINOPHEN 650 MG SUPP.RECT PR ONE (14:43)
[2019-10-24 16:01] VITALS: BP 145/64
== END 2019-10-24 15:55 | disposition short-term general hospital (02) | DRG 280 ==
LOC: ER 05:21 → EH 09:03
PROVIDERS: ADMIT Hospitalist; ATTEND Hospitalist
PROC: 5A09357 Assistance with Respiratory Ventilation, Less than 24 Consecutive Hours, Continuous Positive Airway Pressure (ICD-10-PCS; principal; 2019-10-24)
DX: I21.4 Non-ST elevation (NSTEMI) myocardial infarction (principal); J96.21 Acute and chronic respiratory failure with hypoxia; J96.22 Acute and chronic respiratory failure with hypercapnia; I38 Endocarditis, valve unspecified; N39.0 Urinary tract infection, site not specified; I50.9 Heart failure, unspecified; I25.10 Atherosclerotic heart disease of native coronary artery without angina pectoris; E11.9 Type 2 diabetes mellitus without complications; E78.5 Hyperlipidemia, unspecified; I44.7 Left bundle-branch block, unspecified; I11.0 Hypertensive heart disease with heart failure; J44.9 Chronic obstructive pulmonary disease, unspecified; F32.9 Major depressive disorder, single episode, unspecified; F41.9 Anxiety disorder, unspecified; I44.0 Atrioventricular block, first degree; I25.2 Old myocardial infarction; E03.9 Hypothyroidism, unspecified; Z79.899 Other long term (current) drug therapy; Z79.4 Long term (current) use of insulin; Z79.890 Hormone replacement therapy; Z88.6 Allergy status to analgesic agent; Z88.3 Allergy status to other anti-infective agents; Z88.2 Allergy status to sulfonamides; Z87.01 Personal history of pneumonia (recurrent); Z95.5 Presence of coronary angioplasty implant and graft
CPT/HCPCS: 36415; 71045; 80053; 81001; 82803; 82962; 83605; 83880; 84484; 85025; 85610; 85730; 87040; 87086; 87088; 87186; 87635; 93005; 93010; 96365; 96375; 99291; J0696; J1644; J1815; J1940; J2405; J2550; J3490

== ENCOUNTER 2019-11-19 18:47 | Emergency (ER) | payer MEDICARE ==
[~2019-11-19 18:47] MED LIST changes: +AMIODARONE HCL INJ 150 MG/3 ML VIAL IV ONE; +EPINEPHRINE INJ 1 MG/10 ML DISP.SYRIN ONE; -FAMOTIDINE INJ/PF 20 MG/2 ML SDV IV ONE; +LIDOCAINE 2% INJ-PF (100 MG/5 ML) SYRINGE ONE; +SODIUM BICARBONATE 8.4% INJ 50 MEQ/50 ML DISP.SYRIN ONE
[2019-11-19] MEDS ORDERED: FENTANYL CITRATE INJ/PF 100 MCG/2 ML AMPUL IV ONE (18:57)
[2019-11-19] MEDS ORDERED: FENTANYL CITRATE INJ/PF 100 MCG/2 ML AMPUL ONE (18:58)
[2019-11-19] MEDS ORDERED: SODIUM BICARBONATE 8.4% INJ 50 MEQ/50 ML DISP.SYRIN ONE (19:05)
[2019-11-19 22:19] VITALS: BP 243/159
--- NOTE | 2019-11-20 01:04 | ER Document Report ---
ED General - General Chief Complaint: Breathing Difficulty Stated Complaint: DIFFICULTY BREATHING Time Seen by Provider: 11/19/19 18:57 Primary Care Provider: MAJOR WORKMAN MD [Primary Care Provider] - Follow up as needed TRAVEL OUTSIDE OF THE [place] IN LAST 30 DAYS: No - HPI Notes: Patient's history was obtained from EMS, then eventually . Patient was at home alone. She had started to feel anxious, felt short of breath. She contacted her , told him to come home, then called 911. EMS notes that initially she was 92% on 2 L. She was placed on oxygen and loaded for evaluation at the hospital. Her heart rate was markedly elevated per her , in the 140s. During the course of her stay, the patient's oxygen status decompensated. She was placed on CPAP, on 100% FiO2, and had an SPO2 in the 60s. I was notified of this prior to the patient's arrival, and was in the room awaiting her arrival when EMS pulled up. Patient's notes recent cardiac issues at [facility]. - Related Data Allergies/Adverse Reactions: aspirin [Aspirin] Allergy (Verified 10/24/19 13:08) codeine Allergy (Verified 10/24/19 13:08) erythromycin base [Erythromycin Base] Allergy (Verified 10/24/19 13:08) ibuprofen [From Motrin] Allergy (Verified 10/24/19 13:08) morphine [Morphine] Allergy (Verified 10/24/19 13:08) Sulfa (Sulfonamide Antibiotics) Allergy (Verified 10/24/19 13:08) Past Medical History - General Information source: Relative, Emergency Med Personnel, [facility] - Social History Smoking Status: Never Smoker Frequency of alcohol use: None Drug Abuse: None Family History: Reviewed & Not Pertinent, COPD, Hypertension, Malignancy Patient has homicidal ideation: No - Past Medical History Cardiac Medical History: Reports: Hx Atrial Fibrillation, Hx Congestive Heart Failure, Hx Coronary Artery Disease, Hx Heart Attack - non-stemi, Hx Hypercholesterolemia, Hx Hypertension Pulmonary Medical History: Reports: Hx Bronchitis, Hx COPD, Hx Pneumonia - Recurrent, Hx Respiratory Failure, Hx Sleep Apnea - Suspected. The patient is to go for a sleep study as outpatient. Denies: Hx Asthma Neurological Medical History: Denies: Hx Seizures Endocrine Medical History: Reports: Hx Diabetes Mellitus Type 2, Hx Hypothyroidism. Denies: Hx Diabetes Mellitus Type 1, Hx Hyperthyroidism Renal/ Medical History: Denies: Hx Peritoneal Dialysis GI Medical History: Denies: Hx Cirrhosis, Hx Hepatitis, Hx Ulcerative Colitis Musculoskeletal Medical History: Reports Hx Arthritis, Denies Hx Gout Skin Medical History: Denies Hx Eczema, Denies Hx Psoriasis Psychiatric Medical History: Reports: Hx Depression - anxiety Traumatic Medical History: Denies: Hx Gunshot Wound, Hx Traumatic Brain Injury Infectious Medical History: Denies: Hx C-Diff, Hx Hepatitis Past Surgical History: Reports: Hx Cardiac Catheterization, Hx Cholecystectomy, Hx Coronary Stent, Hx Hysterectomy, Hx Neurologic Surgery - Neck 2011, Other - Valvuloplasty at [facility] - Immunizations Hx Diphtheria, Pertussis, Tetanus Vaccination: Yes Hx Pneumococcal Vaccination: 07/09/10 Review of Systems - Review of Systems -: Yes ROS unobtainable due to patient's medical condition Physical Exam - Vital signs Vitals: Temp 0 F L 11/19/19 18:47 - Notes Notes: Upon arrival to the department, patient was being wheeled into the room in a semi-phillips's position with CPAP in place. She had agonal respirations, was ashen in color. Upon being moved to the stretcher, the patient was found to be pulseless, CPR was initiated. Head is normocephalic and atraumatic, pupils are equal and round, initially reactive to light. Oral mucosa is moist. Heart sounds initially absent, rhonchorous breath sounds with bag valve mask. Abdomen is obese, nontender. Patient made no spontaneous movements. Skin is cool, diaphoretic. Course - Re-evaluation Re-evalutation: 11/20/19 01:29 Patient presented to the emergency department for evaluation via EMS. Upon arrival, she had a significantly decreased level of consciousness with CPAP in place. When she was brought onto the [facility], I rapidly recognized that the p atient did not have a pulse. CPR was initiated. Port was placed under the patient, good pulses with chest compressions. Respiratory therapy was present, respirations given via BVM per protocol. Initial medication with IV push of epinephrine was ordered, initial rhythm was PEA then as short stent of asystole. Compressions were continued, the patient received further epinephrine. During a pulse check, the patient was noted to have pulsed V. tach, then pulseless V. tach. The patient was shocked. Please see nursing notes for specific, but the patient went through multiple rhythms, including PEA, asystole, fine V. fib, pulseless V. tach, and pulsed V. tach. The patient was defibrillated multiple times. She received multiple doses of epinephrine, 2 doses of bicarb. She received amiodarone for pulseless V. tach, 300 mg. She received lidocaine when amiodarone failed. During the course of her resuscitation, she did receive ROSC twice. These were very short-lived. Also, early in her CPR, with out break in chest compressions, the patient was intubated with the glide scope. Please see separate procedure note. After 7 mg of epinephrine and the above-mentioned medications, including fentanyl when the patient received Ross can open her eyes, the patient had a large amount of bright red blood coming from the ET tube. She did not have any meaningful movements, her pupils became nonreactive. It was decided that any further attempts would be futile, and time of was called. 11/20/19 01:33 Patient had multiple medical conditions, I explained I did not believe this to be a pediatrician/medical doctor case. Patient's was notified by this physician upon his arrival to the hospital. - Vital Signs Vital signs: Temp Pulse Resp BP Pulse Ox 0 F L 25 H 243/159 H 82 L 11/19/19 18:47 11/19/19 19:01 11/19/19 19:01 11/19/19 19:00 Procedures - Intubation Orotracheal Airway evaluation: Copious secretions, Large tongue, Obese Mallampati Classification: Class 3 Blade type: Mike Blade size: 3 Equipment used: Glidescope ETT size: 8.0 ETT secured at: Teeth - 22 Breath Sounds after Intubation: Equal End tidal CO2 confirmed: Yes Critical Care Note - Critical Care Note Total time excluding time spent on procedures (mins): 20 Discharge - Discharge Clinical Impression: Respiratory arrest, Cardiac arrest Disposition: Referrals: MAJOR WORKMAN MD [Primary Care Provider] - Follow up as needed
== END 2019-11-20 01:00 | disposition expired ==
LOC: ER 18:47
PROC: 0BH17EZ Insertion of Endotracheal Airway into Trachea, Via Natural or Artificial Opening (ICD-10-PCS; principal; 2019-11-19)
DX: I46.9 Cardiac arrest, cause unspecified (principal); R06.02 Shortness of breath; F41.9 Anxiety disorder, unspecified; Z88.8 Allergy status to other drugs, medicaments and biological substances; Z88.2 Allergy status to sulfonamides; I50.9 Heart failure, unspecified; I25.10 Atherosclerotic heart disease of native coronary artery without angina pectoris; I25.2 Old myocardial infarction; I11.0 Hypertensive heart disease with heart failure; E11.9 Type 2 diabetes mellitus without complications
CPT/HCPCS: 99285; 92950; 31500; J0171; J2001; J3490; J0282